=== PATIENT | female | born 1950 | race Caucasian/White ===

== ENCOUNTER 2016-04-27 04:53 | Inpatient (IN) | payer MEDICARE, BC ==
[2016-04-27] MEDS ORDERED: METHYLPREDNISOLONE INJ 125 MG/2 ML SDV IV ONE (05:16)
[2016-04-27] MEDS ORDERED: IPRATROPIUM/ALBUTEROL 0.5-2.5 MG/3 ML AMPUL NEB ONE (05:16)
--- NOTE | 2016-04-27 05:20 | ER Document Report ---
Doctor's Note Notes: 04/27/16 05:18 Performed a quick triage evaluation the patient. She is a pleasant 66-year-old female presents with complaint of difficulty breathing. She says been worsening over last week but became much worse tonight. She's had a lot of cough. No fevers. She has a history of COPD and asthma. She quit smoking 2 weeks ago. No vomiting. She's been on BiPAP in the past. She's never needed to be intubated. No other complains this time. She has been using her albuterol inhaler at home. On exam patient has tight wheezy lung wylie. She does have some accessory muscle use. She is a little tachypneic. Her O2 saturation is 93% on 2 L. I will start her on DuoNeb treatments. I have ordered Solu-Medrol. Avoid magnesium. We have ordered a VBG.
[2016-04-27 05:29] LABS: VENOUS BLOOD BASE EXCESS 6.6 mmol/L; VENOUS BLOOD PCO2 54.7 mmHg (35-63); VENOUS BLOOD PH 7.4 (7.30-7.42)
[2016-04-27] MEDS: MAGNESIUM SULFATE/D5W 100 ML IV SCH ×2 (05:31→06:40)
[2016-04-27 05:36] LABS: ANION GAP 10 (5-19); BLOOD UREA NITROGEN 15 mg/dL (7-20); CALCIUM 8.9 mg/dL (8.4-10.2); CARBON DIOXIDE 30 mmol/L (22-30); CHLORIDE 102 mmol/L (98-107); CREATININE RESULT 0.54 mg/dL (0.52-1.25); GLUCOSE 125 mg/dL (75-110); POTASSIUM 4.1 mmol/L (3.6-5.0); SODIUM 141.8 mmol/L (137-145)
[2016-04-27 05:57] LABS: HEMATOCRIT 38.3 % (36.0-47.0); HEMOGLOBIN 12.2 g/dL (12.0-15.5); HGB HCT DIFFERENCE -1.7; MEAN CORPUSCULAR HEMOGLOBIN 28.1 pg (27.0-33.4); MEAN CORPUSCULAR HGB CONC 31.8 g/dL (32.0-36.0); MEAN CORPUSCULAR VOLUME 88 fl (80-97); RED BLOOD COUNT 4.33 10^6/uL (3.72-5.28); RED CELL DISTRIBUTION WIDTH 15.9 % (11.5-14.0); WHITE BLOOD COUNT 22.2 10^3/uL (4.0-10.5)
--- NOTE | 2016-04-27 06:08 | ER Document Report ---
ED Respiratory Problem - General Chief Complaint: Breathing Difficulty Stated Complaint: SHORTNESS OF BREATH Mode of Arrival: Ambulatory Information source: Patient Notes: 66-year-old female presents to the emergency department complaining of progressively worsening cough and shortness of breath over approximately the last 2 weeks. Patient reports history of COPD and states cough has become increasingly productive with green sputum. Reports associated chills with unmeasured temperature at home. States has been using home albuterol inhaler with minimal relief. Denies chest pain or hemoptysis. TRAVEL OUTSIDE OF THE [place] IN LAST 30 DAYS: No - HPI Patient complains to provider of: COPD, Cough, Short of breath Duration: Worse/persistent Initiating Event: URI Severity: Moderate Context: Hx COPD Short of Breath: Moderate Chest pain/discomfort: Tightness Sputum amount: Moderate Sputum color: Green Sputum consistency: Thick Similar symptoms previously: Yes Recently seen / treated by doctor: No - Related Data Allergies/Adverse Reactions: hydromorphone HCl [From Dilaudid] Allergy (Intermediate, Verified 04/27/16 05:05 ) Past Medical History - General Information source: Patient - Social History Smoking Status: Smoker,Current Status Unk Chew tobacco use (# tins/day): No Frequency of alcohol use: None Drug Abuse: None Lives with: Family Family History: Reviewed & Not Pertinent Patient has suicidal ideation: No Patient has homicidal ideation: No - Past Medical History Cardiac Medical History: Reports: Hx Atrial Fibrillation, Hx Hypertension, Hx Pulmonary Embolism - 30yrs ago Denies: Hx Congestive Heart Failure, Hx Coronary Artery Disease, Hx Heart Attack, Hx Hypercholesterolemia, Hx Peripheral Vascular Disease, Hx Heart Murmur Pulmonary Medical History: Reports: Hx Asthma, Hx Bronchitis, Hx COPD, Hx Pneumonia Denies: Hx Respiratory Failure, Hx Sleep Apnea Endocrine Medical History: Reports: Hx Hypothyroidism. Denies: Hx Graves' Disease, Hx Hyperthyroidism Renal/ Medical History: Denies: Hx End Stage Renal Disease, Hx Kidney Stones, Hx Peritoneal Dialysis Malignancy Medical History: Denies: Hx Lung Cancer GI Medical History: Reports: Hx Gastroesophageal Reflux Disease Musculoskeltal Medical History: Reports Hx Arthritis, Denies Hx Fibromyalgia, Denies Hx Muscular Dystrophy Psychiatric Medical History: Reports: Hx Depression Denies: Hx Bipolar Disorder, Hx Post Traumatic Stress Disorder, Hx Schizophrenia Traumatic Medical History: Denies: Hx Fractures Past Surgical History: Reports: Hx Hysterectomy, Hx Orthopedic Surgery - CARPAL TUNNEL RELEASE, GANGLION CYST REMOVAL, TRIGGER FINGER RELEASE, Hx Tubal Ligation , Hx Urinary Tract Surgery. Denies: Hx Appendectomy, Hx Bowel Surgery, Hx Section, Hx Cholecystectomy, Hx Coronary Artery Bypass Graft, Hx Gastric Bypass Surgery, Hx Herniorrhaphy, Hx Mastectomy, Hx Pacemaker, Hx Tonsillectomy - Immunizations Hx Diphtheria, Pertussis, Tetanus Vaccination: Yes Hx Pneumococcal Vaccination: 02/22/10 Review of Systems - Review of Systems Constitutional: See HPI EENT: No symptoms reported Cardiovascular: No symptoms reported Respiratory: See HPI Gastrointestinal: No symptoms reported Genitourinary: No symptoms reported Female Genitourinary: No symptoms reported Musculoskeletal: No symptoms reported Skin: No symptoms reported Hematologic/Lymphatic: No symptoms reported Neurological/Psychological: No symptoms reported -: Yes All other systems reviewed and negative Physical Exam - Vital signs Vitals: Resp 26 H 04/27/16 05:01 - General General appearance: Alert In distress: Moderate - HEENT Head: Normocephalic, Atraumatic Eyes: Normal Pupils: PERRL - Respiratory Respiratory status: Respiratory distress, Labored, Tachypnea Chest status: Nontender Breath sounds: Productive cough, Rhonchi - Bilateral, Wheezing - Bilateral expiratory Chest palpation: Normal - Cardiovascular Rhythm: Regular Heart sounds: Normal auscultation Murmur: No Pulses: Normal: Radial Normal capillary refill: Yes - Abdominal Inspection: Normal Distension: No distension Bowel sounds: Normal Tenderness: Nontender Organomegaly: No organomegaly - Extremities General upper extremity: Normal inspection, Nontender, Normal color, Normal ROM , Normal temperature General lower extremity: Normal inspection, Nontender, Normal color, Normal ROM , Normal temperature, Normal weight bearing - Neurological Neuro grossly intact: Yes Cognition: Normal Orientation: AAOx4 [place] Coma Scale Eye Opening: Spontaneous [place] Coma Scale Verbal: Oriented [place] Coma Scale Motor: Obeys Commands [place] Coma Scale Total: 15 Speech: Normal Motor strength normal: LUE, RUE, LLE, RLE Sensory: Normal Course - Re-evaluation Re-evalutation: 04/27/16 07:34 Patient hemodynamically stable, remains on BiPAP but respiratory status has significantly improved after treatment in the ED with IV Solu-Medrol, magnesium , and DuoNebs. Chest x-ray shows hyperinflation and pneumonia. Patient was given dose of Rocephin and saline bolus. Patient presentation and findings were discussed with hospitalist Dr. Colvin who agrees to assume care, evaluate patient in the emergency department, and admit to IMCU. Findings and plan discussed with patient who verbalized understanding and agrees with plan. ED physician Dr. Perez consulted during evaluation and treatment per [facility] guidelines. - Vital Signs Vital signs: Temp Pulse Resp BP Pulse Ox 97.9 F 112 H 19 103/58 L 97 04/27/16 05:02 04/27/16 05:02 04/27/16 07:01 04/27/16 07:01 04/27/16 07:01 - Laboratory Result Diagrams: 04/27/16 05:08 04/27/16 05:08 Laboratory results interpreted by me: 04/27/16 04/27/16 04/27/16 05:08 05:08 05:08 WBC 22.2 H MCHC 31.8 L RDW 15.9 H Abs Neuts (Manual) 16.0 H Abs Monocytes (Manual) 2.7 H PT APTT VBG HCO3 33.0 H Glucose 125 H 04/27/16 05:08 WBC MCHC RDW Abs Neuts (Manual) Abs Monocytes (Manual) PT 24.8 H APTT 49.4 H VBG HCO3 Glucose - Diagnostic Test Radiology reviewed: Image reviewed, Reports reviewed - EKG Interpretation by Me EKG shows normal: Sinus rhythm Rate: Tachycardia When compared to previous EKG there are: No significant change Critical Care Note - Critical Care Note Total time excluding time spent on procedures (mins): 35 - multiple re- evaluations, bi-pap Discharge - Discharge Clinical Impression: COPD exacerbation Condition: Stable Disposition: ADMITTED INPATIENT Admitting Provider: Hospitalist Antione Colvin Unit Admitted: [facility] Referrals: AGUSTO AGRAWAL DO [Primary Care Provider] - Follow up as needed
[2016-04-27] MEDS ORDERED: CEFTRIAXONE 1 GM/D5W RTU 50 ML IV ONE (06:09)
[2016-04-27 06:34] LABS: BASOPHILS % (MANUAL) 0 % (0-2); EOSINOPHILS % (MANUAL) 0 % (0-6); LYMPHOCYTES % (MANUAL) 15 % (13-45); TOTAL CELLS COUNTED 100
[2016-04-27 06:37] LABS: PROTHROMBIN TIME 24.8 SEC (11.4-15.4)
[2016-04-27 06:38] LABS: PARTIAL THROMBOPLASTIN TIME 49.4 SEC (23.5-35.8)
[2016-04-27 06:39] LABS: OVALOCYTES 1+; POIKILOCYTOSIS 1+; POLYCHROMASIA SLIGHT
[2016-04-27] MEDS ORDERED: NORMAL SALINE 1000 ML 1,000 ML IV ONE (06:56)
--- NOTE | 2016-04-27 08:38 | EKG REPORT ---
SEVERITY:- ABNORMAL ECG - SINUS TACHYCARDIA SUPRAVENTRICULAR BIGEMINY CONSIDER ANTEROSEPTAL INFARCT : Confirmed by: Shanna Grace 27-Apr-2016 08:36:58
[2016-04-27 09:50] LABS: APPEARANCE,URINE CLEAR; BILIRUBIN,URINE NEGATIVE (NEGATIVE); GLUCOSE, URINE NEGATIVE (NEGATIVE); KETONES,URINE NEGATIVE (NEGATIVE); LEUKOCYTE ESTERASE,URINE NEGATIVE (NEGATIVE); NITRITE,URINE NEGATIVE (NEGATIVE); PROTEIN,URINE NEGATIVE (NEGATIVE); UROBILINOGEN,URINE NEGATIVE mg/dL (<2.0)
[2016-04-27] MEDS ORDERED: NORMAL SALINE 1000 ML 1,000 ML IV PRN (10:06)
[2016-04-27] MEDS: LEVOFLOXACIN 750 MG/D5W RTU 750 MG/150 ML RTUPB IV SCH (11:59)
[2016-04-27] MEDS ORDERED: DILTIAZEM HCL 180 MG CAPSULE.CR PO ONE (12:00)
[2016-04-27] MEDS: NICOTINE 14 MG/24 HR PATCH.TD24 TD SCH (13:22)
[2016-04-27] MEDS: METHYLPREDNISOLONE INJ 125 MG/2 ML SDV IV SCH ×2 (13:23→23:16)
--- NOTE | 2016-04-27 14:19 | PDOC H&P ---
History of Present Illness Admission Date/PCP: 04/27/16 10:06 AGUSTO AGRAWAL DO Patient complains of: SOB History of Present Illness: LEVI GIBBONS is a 66 year old female presents to the emergency department complaining of progressively worsening cough and shortness of breath over approximately the last 2 weeks. Patient reports history of COPD and states cough has become increasingly productive with green sputum. Reports associated chills with unmeasured temperature at home. States has been using home albuterol inhaler with minimal relief. Denies chest pain or hemoptysis. In the ED patient was diagnosed of COPD exacerbation and pneumonia She was quite dyspneic and was placed on BiPAP support She was subsequently admitted under hospitalist service to an IMCU unit Past Medical History Cardiac Medical History: Reports: Atrial Fibrillation, Hypertension, Pulmonary Embolism - 30yrs ago Denies: Congestive Heart Failure, Coronary Artery Disease, Myocardial Infarction, Hyperlipidema, Peripheral Vascular Disease, Heart Murmur Pulmonary Medical History: Reports: Asthma, Bronchitis, Chronic Obstructive Pulmonary Disease (COPD), Pneumonia, Tuberculosis Denies: Respiratory Failure, Sleep Apnea Endocrine Medical History: Reports: Hypothyroidism Denies: Hyperthyroidism Renal/ Medical History: Denies: End Stage Renal Disease Malignancy Medical History: Denies: Lung Cancer GI Medical History: Reports: Gastroesophageal Reflux Disease Musculoskeltal Medical History: Reports: Arthritis Denies: Fibromyalgia Psychiatric Medical History: Reports: Depression Denies: Bipolar Disorder, Post Traumatic Stress Disorder Past Surgical History Past Surgical History: Reports: Hysterectomy, Orthopedic Surgery - CARPAL TUNNEL RELEASE, GANGLION CYST REMOVAL, TRIGGER FINGER RELEASE, Tubal Ligation Denies: Amputation, Appendectomy, Section, Cholecystectomy, Coronary Artery Bypass Graft, Gastric Bypass Surgery, Herniorrhaphy, Mastectomy , Pacemaker, Tonsillectomy Social History Lives with: Family Smoking Status: Current Every Day Smoker Cigarettes Packs Per Day: 30 Frequency of Alcohol Use: Rare Hx Recreational Drug Use: No Hx Prescription Drug Abuse: No - Advance Directive Resuscitation Status: Full Code Surrogate healthcare decision maker:: Her daughter. Sylvia Family History Parental Family History Reviewed: Yes - mother had hypertension cancer diabetes Children Family History Reviewed: Yes Sibling(s) Family History Reviewed.: Yes - Sister COPD Brother and stage kidney disease Medication/Allergy Home Medications: Albuterol Sulfate [Albuterol Sulfate 2.5mg/3 mL] 1 vial NEB Q4 04/27/16 Albuterol Sulfate [Ventolin Hfa] 1 puff IH Q4 04/27/16 Benazepril HCl [Lotensin 20 mg Tablet] 20 mg PO DAILY 04/27/16 Budesonide/Formoterol Fumarate [Symbicort HFA 80-4.5 mcg Inhaler 6.9 gm] 2 puff IH BID 04/27/16 Buspirone HCl [Buspar 5 mg Tablet] 5 mg PO BID 04/27/16 Citalopram Hydrobromide [Celexa 20 mg Tablet] 20 mg PO DAILY 04/27/16 Citalopram Hydrobromide [Celexa 40 mg Tablet] 40 mg PO DAILY 04/27/16 Diltiazem HCl [Diltiazem ER] 180 mg PO BID 04/27/16 Levothyroxine Sodium [Synthroid 0.112 mg Tablet] 1 tab PO DAILY 04/27/16 Montelukast Sodium [Singulair 10 mg Tablet] 10 mg PO DAILY 04/27/16 Rivaroxaban [Xarelto] 20 mg PO WSUPPER 04/27/16 Ropinirole HCl 1 mg PO QHS 04/27/[address] [place] [Spiriva Handihaler 18 mcg/dose (30 Dose)] 1 cap IH DAILY 08/08 Allergies/Adverse Reactions: hydromorphone HCl [From Dilaudid] Allergy (Intermediate, Verified 04/27/16 05:05 ) Review of Systems Constitutional: ABSENT: anorexia, fever(s), headache(s) Eyes: ABSENT: visual disturbances Ears: ABSENT: hearing changes Cardiovascular: ABSENT: chest pain, dyspnea on exertion, edema, orthropnea, palpitations Respiratory: PRESENT: as per HPI, cough, dyspnea, sputum - Purulent. ABSENT: hemoptysis Gastrointestinal: ABSENT: abdominal pain, constipation, diarrhea, hematemesis, hematochezia, nausea, vomiting Integumentary: ABSENT: rash, wounds Neurological: ABSENT: abnormal gait, abnormal speech, confusion, dizziness, focal weakness, syncope Psychiatric: ABSENT: anxiety, depression, homidical ideation, suicidal ideation Endocrine: ABSENT: cold intolerance, heat intolerance, polydipsia, polyuria Hematologic/Lymphatic: ABSENT: easy bleeding, easy bruising Physical Exam Vital Signs: Temp Pulse Resp BP Pulse Ox 98.7 F 88 21 H 126/68 H 98 04/27/16 12:00 04/27/16 12:00 04/27/16 12:00 04/27/16 12:00 04/27/16 12:00 Intake & Output 04/26/16 04/27/16 04/28/16 00:59 00:59 00:59 Intake Total 240 Output Total 0 Balance 240 Weight 88.1 kg General appearance: PRESENT: mild distress Head exam: PRESENT: atraumatic, normocephalic Eye exam: PRESENT: conjunctiva pink, EOMI, PERRLA. ABSENT: scleral icterus Ear exam: PRESENT: normal external ear exam Mouth exam: PRESENT: moist, tongue midline Neck exam: ABSENT: carotid bruit, JVD, lymphadenopathy, thyromegaly Respiratory exam: PRESENT: decreased breath sounds, rhonchi. ABSENT: accessory muscle use Cardiovascular exam: PRESENT: irregular rhythm, tachycardia. ABSENT: diastolic murmur, rubs, systolic murmur Pulses: PRESENT: normal dorsalis pedis pul GI/Abdominal exam: PRESENT: normal bowel sounds, soft. ABSENT: distended, guarding, mass, organolmegaly, rebound, tenderness Rectal exam: PRESENT: deferred Musculoskeletal exam: PRESENT: ambulatory Neurological exam: PRESENT: alert, awake, oriented to person, oriented to place , oriented to time, oriented to situation, CN II-XII grossly intact. ABSENT: motor sensory deficit Psychiatric exam: PRESENT: appropriate affect, normal mood. ABSENT: homicidal ideation, suicidal ideation Skin exam: PRESENT: dry, intact, warm. ABSENT: cyanosis, rash Results Laboratory Results: Labs- All tests 24 hr 04/27/16 04/27/16 04/27/16 05:08 05:08 05:08 WBC 22.2 H RBC 4.33 Hgb 12.2 Hct 38.3 MCV 88 MCH 28.1 MCHC 31.8 L RDW 15.9 H Plt Count 374 Total Counted 100 Seg Neutrophils % Not Reportable Seg Neuts % (Manual) 72 Lymphocytes % Not Reportable Lymphocytes % (Manual) 15 Atypical Lymphs % 1 Monocytes % Not Reportable Monocytes % (Manual) 12 Eosinophils % Not Reportable Eosinophils % (Manual) 0 Basophils % Not Reportable Basophils % (Manual) 0 Absolute Neutrophils Not Reportable Abs Neuts (Manual) 16.0 H Absolute Lymphocytes Not Reportable Abs Lymphs (Manual) 3.6 Absolute Monocytes Not Reportable Abs Monocytes (Manual) 2.7 H Absolute Eosinophils Not Reportable Absolute Eos (Manual) 0.0 Absolute Basophils Not Reportable Abs Basophils (Manual) 0.0 Platelet Comment ADEQUATE Polychromasia SLIGHT Poikilocytosis 1+ Ovalocytes 1+ PT INR APTT VBG pH 7.40 VBG pCO2 54.7 VBG HCO3 33.0 H VBG Base Excess 6.6 Sodium 141.8 Potassium 4.1 Chloride 102 Carbon Dioxide 30 Anion Gap 10 BUN 15 Creatinine 0.54 Est GFR ( Amer) > 60 Est GFR (Non-Af Amer) > 60 Glucose 125 H Lactic Acid Calcium 8.9 NT-Pro-B Natriuret Pep Urine Color Urine Appearance Urine pH Ur Specific [place] Urine Protein Urine Glucose (UA) Urine Ketones Urine Blood Urine Nitrite Urine Bilirubin Urine Urobilinogen Ur Leukocyte Esterase Urine WBC (Auto) Urine RBC (Auto) Squamous Epi Cells Auto Urine Mucus (Auto) Urine Ascorbic Acid 04/27/16 04/27/16 04/27/16 05:08 05:08 05:08 WBC RBC Hgb Hct MCV MCH MCHC RDW Plt Count Total Counted Seg Neutrophils % Seg Neuts % (Manual) Lymphocytes % Lymphocytes % (Manual) Atypical Lymphs % Monocytes % Monocytes % (Manual) Eosinophils % Eosinophils % (Manual) Basophils % Basophils % (Manual) Absolute Neutrophils Abs Neuts (Manual) Absolute Lymphocytes Abs Lymphs (Manual) Absolute Monocytes Abs Monocytes (Manual) Absolute Eosinophils Absolute Eos (Manual) Absolute Basophils Abs Basophils (Manual) Platelet Comment Polychromasia Poikilocytosis Ovalocytes PT 24.8 H INR 2.14 APTT 49.4 H VBG pH VBG pCO2 VBG HCO3 VBG Base Excess Sodium Potassium Chloride Carbon Dioxide Anion Gap BUN Creatinine Est GFR ( Amer) Est GFR (Non-Af Amer) Glucose Lactic Acid 2.0 Calcium NT-Pro-B Natriuret Pep 284 Urine Color Urine Appearance Urine pH Ur Specific [place] Urine Protein Urine Glucose (UA) Urine Ketones Urine Blood Urine Nitrite Urine Bilirubin Urine Urobilinogen Ur Leukocyte Esterase Urine WBC (Auto) Urine RBC (Auto) Squamous Epi Cells Auto Urine Mucus (Auto) Urine Ascorbic Acid 04/27/16 09:20 WBC RBC Hgb Hct MCV MCH MCHC RDW Plt Count Total Counted Seg Neutrophils % Seg Neuts % (Manual) Lymphocytes % Lymphocytes % (Manual) Atypical Lymphs % Monocytes % Monocytes % (Manual) Eosinophils % Eosinophils % (Manual) Basophils % Basophils % (Manual) Absolute Neutrophils Abs Neuts (Manual) Absolute Lymphocytes Abs Lymphs (Manual) Absolute Monocytes Abs Monocytes (Manual) Absolute Eosinophils Absolute Eos (Manual) Absolute Basophils Abs Basophils (Manual) Platelet Comment Polychromasia Poikilocytosis Ovalocytes PT INR APTT VBG pH VBG pCO2 VBG HCO3 VBG Base Excess Sodium Potassium Chloride Carbon Dioxide Anion Gap BUN Creatinine Est GFR ( Amer) Est GFR (Non-Af Amer) Glucose Lactic Acid Calcium NT-Pro-B Natriuret Pep Urine Color YELLOW Urine Appearance CLEAR Urine pH 5.0 Ur Specific [place] 1.010 Urine Protein NEGATIVE Urine Glucose (UA) NEGATIVE Urine Ketones NEGATIVE Urine Blood NEGATIVE Urine Nitrite NEGATIVE Urine Bilirubin NEGATIVE Urine Urobilinogen NEGATIVE Ur Leukocyte Esterase NEGATIVE Urine WBC (Auto) 1 Urine RBC (Auto) 0 Squamous Epi Cells Auto <1 Urine Mucus (Auto) RARE Urine Ascorbic Acid NEGATIVE EKG Comments: SINUS TACHYCARDIA [SVBIG] . SUPRAVENTRICULAR BIGEMINY [AMI8] . CONSIDER ANTEROSEPTAL INFARCT Impressions: Chest X-Ray 04/27/16 05:17 IMPRESSION: Upper lobes are hyperinflated and hyperlucent from obstructive disease. There is interstitial infiltrate in the right and left lower lung, which may reflect a mixture of alveolar and interstitial edema superimposed on obstructive disease. Atypical pneumonia could not be excluded. Assessment & Plan - Diagnosis (1) Pneumonia Qualifiers: Pneumonia type: due to unspecified organism Laterality: unspecified laterality Lung location: unspecified part of lung Qualified Code(s) : J18.9 - Pneumonia, unspecified organism Is this a current diagnosis for this admission?: YesPlan: Treat as community-acquired pneumonia Patient will be treated with Levaquin and ceftriaxone to broaden the spectrum as she is a chronic smoker and may have Gram-negative pneumonia Noted that chest x-ray was described as increased interstitial infiltrate (2) Respiratory failure Qualifiers: Chronicity: acute on chronic Is this a current diagnosis for this admission?: YesPlan: We will give the patient supplemental O2. And use BiPAP when necessary (3) COPD exacerbation Is this a current diagnosis for this admission?: YesPlan: Treat with nebs steroids (4) Full code status Is this a current diagnosis for this admission?: Yes - Time Time Spent: 50 to 70 Minutes
[2016-04-27] MEDS ORDERED: (PENDING PHARMACY ID) (Diltiazem Hcl [Diltiazem Er] 180 MG) PO SCH (18:00)
[2016-04-27] MEDS ORDERED: (PENDING PHARMACY ID) (Buspirone Hcl [Buspar 5 Mg Tablet] 5 MG) PO SCH (18:00)
[2016-04-27] MEDS: CEFEPIME 1 GM/D5W RTU 1 GM/50 ML RTUPB IV SCH (18:23)
[2016-04-27] MEDS: BUSPIRONE HCL 10 MG TABLET PO SCH (18:24)
[2016-04-27] MEDS: BUDESONIDE/FORMOTEROL 80-4.5 MCG 60 PUFF/6.9 GM MDI IH SCH (18:24)
[2016-04-27] MEDS: RIVAROXABAN 10 MG TABLET PO SCH (18:24)
[2016-04-27] MEDS ORDERED: NYSTATIN 500000 UNIT/5 ML UDCUP PO ONE (19:30)
[2016-04-27] MEDS: IPRATROPIUM/ALBUTEROL 0.5-2.5 MG/3 ML AMPUL NEB PRN (22:44)
[2016-04-27] MEDS: NYSTATIN 500000 UNIT/5 ML UDCUP PO SCH (23:17)
[2016-04-27] MEDS: ROPINIROLE HCL 1 MG TABLET PO SCH (23:18)
[2016-04-27] MEDS: DILTIAZEM HCL 180 MG CAPSULE.CR PO SCH (23:19)
[2016-04-27] MEDS: FAMOTIDINE INJ/PF 20 MG/2 ML SDV IV SCH (23:19)
[2016-04-28] MEDS: CEFEPIME 1 GM/D5W RTU 1 GM/50 ML RTUPB IV SCH ×2 (06:09→17:55)
[2016-04-28] MEDS: METHYLPREDNISOLONE INJ 125 MG/2 ML SDV IV SCH ×3 (06:09→22:28)
[2016-04-28] MEDS: NYSTATIN 500000 UNIT/5 ML UDCUP PO SCH ×3 (06:09→17:55)
[2016-04-28] MEDS: IPRATROPIUM/ALBUTEROL 0.5-2.5 MG/3 ML AMPUL NEB PRN ×2 (06:24→20:06)
[2016-04-28 06:47] LABS: HEMATOCRIT 35.5 % (36.0-47.0); HEMOGLOBIN 11.5 g/dL (12.0-15.5); MEAN CORPUSCULAR HEMOGLOBIN 28.6 pg (27.0-33.4); MEAN CORPUSCULAR HGB CONC 32.3 g/dL (32.0-36.0); MEAN CORPUSCULAR VOLUME 89 fl (80-97); RED BLOOD COUNT 4.01 10^6/uL (3.72-5.28); RED CELL DISTRIBUTION WIDTH 15.9 % (11.5-14.0); WHITE BLOOD COUNT 23.3 10^3/uL (4.0-10.5)
[2016-04-28 07:12] LABS: ALANINE AMINOTRANSFERASE 28 U/L (9-52); ALBUMIN 3.2 g/dL (3.5-5.0); ALKALINE PHOSPHATASE 113 U/L (38-126); ANION GAP 9 (5-19); ASPARTATE AMINO TRANSFERASE 18 U/L (14-36); BILIRUBIN,TOTAL 0.5 mg/dL (0.2-1.3); BLOOD UREA NITROGEN 13 mg/dL (7-20); CALCIUM 8.9 mg/dL (8.4-10.2); CARBON DIOXIDE 29 mmol/L (22-30); CHLORIDE 103 mmol/L (98-107); CREATININE RESULT 0.48 mg/dL (0.52-1.25); GLUCOSE 167 mg/dL (75-110); POTASSIUM 4.4 mmol/L (3.6-5.0); SODIUM 141.1 mmol/L (137-145); TOTAL PROTEIN 6.3 g/dL (6.3-8.2)
[2016-04-28 07:45] LABS: BASOPHILS % (MANUAL) 0 % (0-2); EOSINOPHILS % (MANUAL) 0 % (0-6); HYPOCHROMASIA SLIGHT; LYMPHOCYTES % (MANUAL) 8 % (13-45); POLYCHROMASIA SLIGHT; TOTAL CELLS COUNTED 100
[2016-04-28] MEDS: ENOXAPARIN SODIUM INJ 40 MG/0.4 ML DISP.SYRIN SUBCUT SCH (08:13)
[2016-04-28] MEDS: LEVOTHYROXINE SODIUM 0.112 MG TABLET PO SCH (08:14)
[2016-04-28] MEDS: DILTIAZEM HCL 180 MG CAPSULE.CR PO SCH ×2 (09:56→22:27)
[2016-04-28] MEDS: BUSPIRONE HCL 10 MG TABLET PO SCH ×2 (09:56→17:55)
[2016-04-28] MEDS: BENAZEPRIL HCL 20 MG TABLET PO SCH (09:57)
[2016-04-28] MEDS: BUDESONIDE/FORMOTEROL 80-4.5 MCG 60 PUFF/6.9 GM MDI IH SCH ×2 (09:58→17:55)
[2016-04-28] MEDS: CITALOPRAM HYDROBROMIDE 20 MG TABLET PO SCH (09:58)
[2016-04-28] MEDS: FAMOTIDINE INJ/PF 20 MG/2 ML SDV IV SCH ×2 (09:59→22:27)
[2016-04-28] MEDS: TIOTROPIUM BROMIDE DPI 5 CAP/KIT (18 MCG/CAP) IH SCH (09:59)
[2016-04-28] MEDS ORDERED: (PENDING PHARMACY ID) (Citalopram Hydrobromide [Celexa 40 Mg Tablet] 40 MG) PO SCH (10:00)
[2016-04-28] MEDS ORDERED: PREDNISONE 20 MG TABLET PO SCH (10:00)
--- NOTE | 2016-04-28 10:39 | PDOC PROGRESS REPORT ---
Subjective Progress Note for:: 04/28/16 Subjective:: Reason for visit: Follow-up pneumonia, acute on chronic hypoxic respiratory failure Hospital course: Per H&P "LEVI GIBBONS is a 66 year old female presents to the emergency department complaining of progressively worsening cough and shortness of breath over approximately the last 2 weeks. Patient reports history of COPD and states cough has become increasingly productive with green sputum. Reports associated chills with unmeasured temperature at home. States has been using home albuterol inhaler with minimal relief. Denies chest pain or hemoptysis. In the ED patient was diagnosed of COPD exacerbation and pneumonia She was quite dyspneic and was placed on BiPAP support She was subsequently admitted under hospitalist service to an IMCU unit" She was admitted to the hospital and started on supplemental O2, nebulizer therapy, systemic IV steroids, and broad-spectrum antibiotics with cefepime and Levaquin. She does feel some better since her admission but is a long way from back to normal. Subjective: She complains of some posterior back pain with deep inspiration, worsened by the bed and certain positions; she continues to complain of dyspnea with minimal exertion and wheezing. She denies fever, chills, cardiac type chest pain, headache, dizziness, numbness or tingling, abdominal pain, nausea, diarrhea. ROS: per HPI plus a total of 10 systems reviewed, pertinent positives and negatives noted above, remaining systems negative. Physical Exam Vital Signs: Temp Pulse Resp BP Pulse Ox 98.3 F 68 22 H 121/64 95 04/28/16 07:33 04/28/16 07:33 04/28/16 07:33 04/28/16 07:33 04/28/16 07:33 Intake & Output 04/27/16 04/28/16 04/29/16 06:59 06:59 06:59 Intake Total 2097 Output Total 0 Balance 2097 Weight 89.3 kg EXAM GENERAL: NAD; well developed, well nourished; mild obese; alert and oriented to person, place, time, situation HEENT: normocephalic, atraumatic; no conjunctival injection, no scleral icterus ; oral mucosa moist; RESPIRATORY: no accessory muscle use, mild increased WOB with minimal exertion , good air entry bilaterally; bilateral rhonchi and diffuse inspiratory crackles CARDIO: no JVD; no systolic murmur; no tachycardia GI: soft; nondistended; normal bowel sounds; no tympany: no rebound, rigidity, guarding; nontender VASCULAR: no abdominal bruit; no pallor; 2+ radial, DP pulse; normal capillary refill EXTREMITIES: no calf tender; no palpable cords in calf; no clubbing, cyanosis , pedal edema PSYCH: normal affect, normal mood SKIN: warm; moist; no petechiae; no telengectasias; no jaundice; no rash Results Laboratory Results: 04/28/16 05:58 04/28/16 05:58 04/28/16 04/28/16 04/28/16 05:58 05:58 05:58 WBC 23.3 H RBC 4.01 Hgb 11.5 L Hct 35.5 L MCV 89 MCH 28.6 MCHC 32.3 RDW 15.9 H Plt Count 329 Seg Neutrophils % Not Reportable Lymphocytes % Not Reportable Monocytes % Not Reportable Eosinophils % Not Reportable Basophils % Not Reportable Absolute Neutrophils Not Reportable Absolute Lymphocytes Not Reportable Absolute Monocytes Not Reportable Absolute Eosinophils Not Reportable Absolute Basophils Not Reportable Sodium 141.1 Potassium 4.4 Chloride 103 Carbon Dioxide 29 Anion Gap 9 BUN 13 Creatinine 0.48 L Est GFR ( Amer) > 60 Est GFR (Non-Af Amer) > 60 Glucose 167 H Calcium 8.9 Total Bilirubin 0.5 AST 18 ALT 28 Alkaline Phosphatase 113 Total Protein 6.3 Albumin 3.2 L TSH 0.73 Labs reviewed, persistent leukocytosis otherwise reassuring or unremarkable Impressions: Chest X-Ray 04/27/16 05:17 IMPRESSION: Upper lobes are hyperinflated and hyperlucent from obstructive disease. There is interstitial infiltrate in the right and left lower lung, which may reflect a mixture of alveolar and interstitial edema superimposed on obstructive disease. Atypical pneumonia could not be excluded. Status: Imported from PACS - Reports reviewed Assessment & Plan - Diagnosis (1) Acute respiratory failure with hypoxia Is this a current diagnosis for this admission?: YesPlan: Continue supplemental O2, incentive spirometer, nebulizers. Wean off O2 as tolerated, patient does not use at home. (2) COPD exacerbation Is this a current diagnosis for this admission?: YesPlan: Likely bacterial bronchitis and with her fixed lung disease she is at risk for gram-negative organisms. Continue broad-spectrum antibiotics. Other treatments as noted above. (3) Pneumonia Qualifiers: Pneumonia type: due to unspecified organism Laterality: unspecified laterality Lung location: unspecified part of lung Qualified Code(s) : J18.9 - Pneumonia, unspecified organism Is this a current diagnosis for this admission?: YesPlan: Treat as noted above. (4) HTN (hypertension) Qualifiers: Hypertension type: essential hypertension Qualified Code(s): I10 - Essential (primary) hypertension Is this a current diagnosis for this admission?: YesPlan: Titrated regimen as needed. - Time Time Spent with patient: 25-34 minutes Anticipated discharge: Home Within: within 72 hours - We'll likely be a long slow recovery due to the severity of her COPD and current bronchospasm
[2016-04-28] MEDS: NICOTINE 14 MG/24 HR PATCH.TD24 TD SCH (11:18)
[2016-04-28] MEDS: LEVOFLOXACIN 750 MG/D5W RTU 750 MG/150 ML RTUPB IV SCH (11:25)
[2016-04-28] MEDS: RIVAROXABAN 10 MG TABLET PO SCH (17:54)
[2016-04-28] MEDS ORDERED: MONTELUKAST SODIUM 10 MG TABLET PO SCH (18:00)
[2016-04-28] MEDS: ROPINIROLE HCL 1 MG TABLET PO SCH (22:27)
[2016-04-29] MEDS: NYSTATIN 500000 UNIT/5 ML UDCUP PO SCH ×4 (00:34→17:43)
[2016-04-29] MEDS: IPRATROPIUM/ALBUTEROL 0.5-2.5 MG/3 ML AMPUL NEB PRN ×2 (03:08→10:35)
[2016-04-29] MEDS: METHYLPREDNISOLONE INJ 125 MG/2 ML SDV IV SCH ×3 (05:40→22:30)
[2016-04-29] MEDS: CEFEPIME 1 GM/D5W RTU 1 GM/50 ML RTUPB IV SCH ×2 (05:40→17:44)
[2016-04-29] MEDS ORDERED: GUAIFENESIN SYRP 200 MG/10 ML UDC PO PRN (06:13)
[2016-04-29] MEDS: ENOXAPARIN SODIUM INJ 40 MG/0.4 ML DISP.SYRIN SUBCUT SCH (10:06)
[2016-04-29] MEDS: BUSPIRONE HCL 10 MG TABLET PO SCH ×2 (10:07→17:44)
[2016-04-29] MEDS: BUDESONIDE/FORMOTEROL 80-4.5 MCG 60 PUFF/6.9 GM MDI IH SCH ×2 (10:07→17:44)
[2016-04-29] MEDS: DILTIAZEM HCL 180 MG CAPSULE.CR PO SCH ×2 (10:07→22:30)
[2016-04-29] MEDS: LEVOTHYROXINE SODIUM 0.112 MG TABLET PO SCH (10:07)
[2016-04-29] MEDS: CITALOPRAM HYDROBROMIDE 20 MG TABLET PO SCH ×2 (10:07→22:32)
[2016-04-29] MEDS: TIOTROPIUM BROMIDE DPI 5 CAP/KIT (18 MCG/CAP) IH SCH (10:08)
[2016-04-29] MEDS: FAMOTIDINE INJ/PF 20 MG/2 ML SDV IV SCH ×2 (10:08→22:31)
[2016-04-29] MEDS: BENAZEPRIL HCL 20 MG TABLET PO SCH (10:09)
[2016-04-29] MEDS: ACETAMINOPHEN 325 MG TABLET PO PRN ×2 (10:15→15:49)
[2016-04-29] MEDS ORDERED: HYDROCODONE BIT/HOMATROPINE 5-1.5 MG TABLET PO SCH (10:45)
[2016-04-29] MEDS: LEVOFLOXACIN 750 MG TABLET PO SCH (11:46)
[2016-04-29] MEDS: NICOTINE 14 MG/24 HR PATCH.TD24 TD SCH (11:47)
[2016-04-29] MEDS ORDERED: HYDROCODONE BIT/HOMATROPINE 5-1.5 MG TABLET PO ONE ×2 (12:00→16:00)
--- NOTE | 2016-04-29 13:29 | PDOC PROGRESS REPORT ---
Subjective Progress Note for:: 04/29/16 Subjective:: Reason for visit: Follow-up pneumonia, acute on chronic hypoxic respiratory failure Hospital course: Per H&P "LEVI GIBBONS is a 66 year old female presents to the emergency department complaining of progressively worsening cough and shortness of breath over approximately the last 2 weeks. Patient reports history of COPD and states cough has become increasingly productive with green sputum. Reports associated chills with unmeasured temperature at home. States has been using home albuterol inhaler with minimal relief. Denies chest pain or hemoptysis. In the ED patient was diagnosed of COPD exacerbation and pneumonia She was quite dyspneic and was placed on BiPAP support She was subsequently admitted under hospitalist service to an IMCU unit" She was admitted to the hospital and started on supplemental O2, nebulizer therapy, systemic high dose IV steroids, and broad-spectrum antibiotics with cefepime and Levaquin. She does feel some better since her admission but is a long way from back to normal. Subjective: She complains of persistent cough, dry hacking and waking her from sleep, leaving her breathless and wheezing; she continues to complain of dyspnea with minimal exertion and wheezing. she feels like there is something stuck in the center of her chest but cant get it cleared. She denies fever, chills, cardiac type chest pain, headache, dizziness, numbness or tingling, abdominal pain, nausea, diarrhea. ROS: per HPI plus a total of 10 systems reviewed, pertinent positives and negatives noted above, remaining systems negative. Physical Exam Vital Signs: Temp Pulse Resp BP Pulse Ox 98.2 F 70 18 118/65 94 04/29/16 11:10 04/29/16 11:10 04/29/16 11:10 04/29/16 11:10 04/29/16 11:10 Intake & Output 04/28/16 04/29/16 04/30/16 06:59 06:59 06:59 Intake Total 2097 1682 300 Output Total 0 Balance 2097 1682 300 Weight 89.3 kg 89 kg EXAM GENERAL: NAD, ill appearing; well developed, well nourished; mild obese; alert and oriented to person, place, time, situation HEENT: normocephalic, atraumatic; no conjunctival injection, no scleral icterus ; oral mucosa dry; RESPIRATORY: no accessory muscle use, mild increased WOB with minimal exertion , good air entry bilaterally; persistent bilateral rhonchi and diffuse inspiratory crackles CARDIO: no JVD; no systolic murmur; no tachycardia GI: soft; nondistended; normal bowel sounds; no tympany: no rebound, rigidity, guarding; nontender VASCULAR: no abdominal bruit; no pallor; 2+ radial, DP pulse; normal capillary refill EXTREMITIES: no calf tender; no palpable cords in calf; no clubbing, cyanosis , pedal edema PSYCH: normal affect, normal mood SKIN: warm; moist; no petechiae; no telengectasias; no jaundice; no rash Assessment & Plan - Diagnosis (1) Acute respiratory failure with hypoxia Is this a current diagnosis for this admission?: YesPlan: not much improved. Continue supplemental O2, incentive spirometer, nebulizers. Wean off O2 as tolerated, patient does not use at home. (2) COPD exacerbation Is this a current diagnosis for this admission?: YesPlan: Likely bacterial bronchitis and with her fixed lung disease she is at risk for gram-negative organisms. Continue broad-spectrum antibiotics. add cough suppressant as this seems to be worsening her bronchospasm. scheduled nebs for 24hrs and continue prn nebs. Other treatments as noted above. (3) Pneumonia Qualifiers: Pneumonia type: due to unspecified organism Laterality: unspecified laterality Lung location: unspecified part of lung Qualified Code(s) : J18.9 - Pneumonia, unspecified organism Is this a current diagnosis for this admission?: YesPlan: Treat as noted above. (4) HTN (hypertension) Qualifiers: Hypertension type: essential hypertension Qualified Code(s): I10 - Essential (primary) hypertension Is this a current diagnosis for this admission?: Yes - Time Time Spent with patient: 15-24 minutes Medications reviewed and adjusted accordingly: Yes Anticipated discharge: Home Within: within 72 hours - Plan Summary Plan Summary: not much improvement but not any worse; tweak her meds as noted above and hopefully another 24hrs of high dose steroids with abx will finally turn the tide in our favor.
[2016-04-29] MEDS: ALBUTEROL SULFATE 0.083% NEB 2.5 MG/3 ML AMPUL NEB SCH ×2 (14:11→20:12)
[2016-04-29] MEDS: RIVAROXABAN 10 MG TABLET PO SCH (17:45)
[2016-04-29] MEDS: GUAIFENESIN 600 MG TABLET.SA PO SCH (22:31)
[2016-04-29] MEDS: HYDROCODONE BIT/HOMATROPINE 5-1.5 MG TABLET PO SCH (22:31)
[2016-04-29] MEDS: ROPINIROLE HCL 1 MG TABLET PO SCH (22:31)
[2016-04-30] MEDS: NYSTATIN 500000 UNIT/5 ML UDCUP PO SCH ×5 (01:10→23:14)
[2016-04-30] MEDS: ALBUTEROL SULFATE 0.083% NEB 2.5 MG/3 ML AMPUL NEB PRN (01:56)
[2016-04-30] MEDS: CEFEPIME 1 GM/D5W RTU 1 GM/50 ML RTUPB IV SCH ×2 (05:11→18:44)
[2016-04-30] MEDS: HYDROCODONE BIT/HOMATROPINE 5-1.5 MG TABLET PO SCH ×4 (05:12→23:15)
[2016-04-30] MEDS: METHYLPREDNISOLONE INJ 125 MG/2 ML SDV IV SCH ×3 (05:12→21:49)
[2016-04-30 06:08] LABS: HEMATOCRIT 34.6 % (36.0-47.0); HEMOGLOBIN 11.1 g/dL (12.0-15.5); HGB HCT DIFFERENCE -1.3; MEAN CORPUSCULAR HEMOGLOBIN 28.1 pg (27.0-33.4); MEAN CORPUSCULAR VOLUME 88 fl (80-97); RED BLOOD COUNT 3.94 10^6/uL (3.72-5.28); RED CELL DISTRIBUTION WIDTH 15.5 % (11.5-14.0); WHITE BLOOD COUNT 25.2 10^3/uL (4.0-10.5)
[2016-04-30 06:14] LABS: ANION GAP 8 (5-19); BLOOD UREA NITROGEN 21 mg/dL (7-20); CALCIUM 8.5 mg/dL (8.4-10.2); CARBON DIOXIDE 30 mmol/L (22-30); CHLORIDE 100 mmol/L (98-107); CREATININE RESULT 0.53 mg/dL (0.52-1.25); GLUCOSE 157 mg/dL (75-110); POTASSIUM 4.2 mmol/L (3.6-5.0)
[2016-04-30 06:38] LABS: BASOPHILS % (MANUAL) 0 % (0-2); EOSINOPHILS % (MANUAL) 0 % (0-6); LYMPHOCYTES % (MANUAL) 7 % (13-45); TOTAL CELLS COUNTED 100
[2016-04-30 06:40] LABS: ANISOCYTOSIS SLIGHT; OVALOCYTES SLIGHT; POIKILOCYTOSIS SLIGHT; TEAR DROP CELLS SLIGHT; TOXIC GRANULATION 1+; TOXIC VACUOLATION PRESENT
[2016-04-30] MEDS: ACETAMINOPHEN 325 MG TABLET PO PRN (06:52)
[2016-04-30] MEDS: ALBUTEROL SULFATE 0.083% NEB 2.5 MG/3 ML AMPUL NEB SCH ×3 (08:18→20:11)
[2016-04-30] MEDS: BUSPIRONE HCL 10 MG TABLET PO SCH ×2 (10:32→18:43)
[2016-04-30] MEDS: LEVOTHYROXINE SODIUM 0.112 MG TABLET PO SCH (10:32)
[2016-04-30] MEDS: CITALOPRAM HYDROBROMIDE 20 MG TABLET PO SCH ×2 (10:32→21:49)
[2016-04-30] MEDS: DILTIAZEM HCL 180 MG CAPSULE.CR PO SCH ×2 (10:32→21:49)
[2016-04-30] MEDS: GUAIFENESIN 600 MG TABLET.SA PO SCH ×2 (10:33→21:49)
[2016-04-30] MEDS: BUDESONIDE/FORMOTEROL 80-4.5 MCG 60 PUFF/6.9 GM MDI IH SCH ×2 (10:34→18:44)
[2016-04-30] MEDS: FAMOTIDINE INJ/PF 20 MG/2 ML SDV IV SCH (10:34)
[2016-04-30] MEDS: TIOTROPIUM BROMIDE DPI 5 CAP/KIT (18 MCG/CAP) IH SCH (10:35)
[2016-04-30] MEDS: ENOXAPARIN SODIUM INJ 40 MG/0.4 ML DISP.SYRIN SUBCUT SCH (10:36)
[2016-04-30] MEDS: BENAZEPRIL HCL 20 MG TABLET PO SCH (10:43)
--- NOTE | 2016-04-30 12:57 | PDOC PROGRESS REPORT ---
Subjective Progress Note for:: 04/30/16 Subjective:: Reason for visit: Follow-up pneumonia, acute on chronic hypoxic respiratory failure Hospital course: Per H&P "LEVI GIBBONS is a 66 year old female presents to the emergency department complaining of progressively worsening cough and shortness of breath over approximately the last 2 weeks. Patient reports history of COPD and states cough has become increasingly productive with green sputum. Reports associated chills with unmeasured temperature at home. States has been using home albuterol inhaler with minimal relief. Denies chest pain or hemoptysis. In the ED patient was diagnosed of COPD exacerbation and pneumonia She was quite dyspneic and was placed on BiPAP support She was subsequently admitted under hospitalist service to an IMCU unit" She was admitted to the hospital and started on supplemental O2, nebulizer therapy, systemic high dose IV steroids, and broad-spectrum antibiotics with cefepime and Levaquin. She does feel some better since her admission but is a long way from back to normal. Subjective: She states her breathing is finally a little better; she continues to complain of dyspnea with minimal exertion and wheezing. cough is improved with change in suppressant. She denies fever, chills, cardiac type chest pain, headache, dizziness, numbness or tingling, abdominal pain, nausea, diarrhea. ROS: per HPI plus a total of 10 systems reviewed, pertinent positives and negatives noted above, remaining systems negative. Physical Exam Vital Signs: Temp Pulse Resp BP Pulse Ox 97.7 F 73 20 102/63 90 L 04/30/16 11:10 04/30/16 11:10 04/30/16 11:10 04/30/16 11:10 04/30/16 11:10 Intake & Output 04/29/16 04/30/16 05/01/16 06:59 06:59 06:59 Intake Total 1682 5 Balance 1682 2094 Weight 89 kg 91.1 kg EXAM GENERAL: NAD; well developed, well nourished; mild obese; alert and oriented to person, place, time, situation HEENT: normocephalic, atraumatic; no conjunctival injection, no scleral icterus ; oral mucosa dry; RESPIRATORY: no accessory muscle use, mild increased WOB with minimal exertion , good air entry bilaterally;resolution of bilateral rhonchi, now just coarse BSs bilat CARDIO: no JVD; no systolic murmur; no tachycardia GI: soft; nondistended; normal bowel sounds; no tympany: no rebound, rigidity, guarding; nontender VASCULAR: no abdominal bruit; no pallor; 2+ radial, DP pulse; normal capillary refill EXTREMITIES: no calf tender; no palpable cords in calf; no clubbing, cyanosis , pedal edema PSYCH: normal affect, normal mood SKIN: warm; moist; no petechiae; no telengectasias; no jaundice; no rash Results Laboratory Results: 04/30/16 05:07 04/30/16 05:07 04/30/16 04/30/16 05:07 05:07 WBC 25.2 H RBC 3.94 Hgb 11.1 L Hct 34.6 L MCV 88 MCH 28.1 MCHC 32.0 RDW 15.5 H Plt Count 362 Seg Neutrophils % Not Reportable Lymphocytes % Not Reportable Monocytes % Not Reportable Eosinophils % Not Reportable Basophils % Not Reportable Absolute Neutrophils Not Reportable Absolute Lymphocytes Not Reportable Absolute Monocytes Not Reportable Absolute Eosinophils Not Reportable Absolute Basophils Not Reportable Sodium 138.0 Potassium 4.2 Chloride 100 Carbon Dioxide 30 Anion Gap 8 BUN 21 H Creatinine 0.53 Est GFR ( Amer) > 60 Est GFR (Non-Af Amer) > 60 Glucose 157 H Calcium 8.5 labs reviewed, persistent leukocytosis, had high monocytes on initial CBC raising possibility for viral infection Assessment & Plan - Diagnosis (1) Acute respiratory failure with hypoxia Is this a current diagnosis for this admission?: YesPlan: stable. Continue supplemental O2, incentive spirometer, nebulizers. Wean off O2 as tolerated, patient does not use at home. (2) COPD exacerbation Is this a current diagnosis for this admission?: YesPlan: finally some improved with resolution of bronchospasm on today's exam. Likely bacterial bronchitis and with her fixed lung disease she is at risk for gram- negative organisms. Continue broad-spectrum antibiotics. added stronger cough suppressant as cough seemed to be worsening her bronchospasm. scheduled nebs for 24hrs really seemed to help. Other treatments as noted above. (3) Pneumonia Qualifiers: Pneumonia type: due to unspecified organism Laterality: unspecified laterality Lung location: unspecified part of lung Qualified Code(s) : J18.9 - Pneumonia, unspecified organism Is this a current diagnosis for this admission?: YesPlan: Treat as noted above. (4) HTN (hypertension) Qualifiers: Hypertension type: essential hypertension Qualified Code(s): I10 - Essential (primary) hypertension Is this a current diagnosis for this admission?: Yes - Time Time Spent with patient: 15-24 minutes
[2016-04-30] MEDS: LEVOFLOXACIN 750 MG TABLET PO SCH (14:22)
[2016-04-30] MEDS: NICOTINE 14 MG/24 HR PATCH.TD24 TD SCH (14:23)
[2016-04-30] MEDS: LANSOPRAZOLE 30 MG TAB.RAP.DR PO SCH (18:43)
[2016-04-30] MEDS: RIVAROXABAN 10 MG TABLET PO SCH (18:45)
[2016-04-30] MEDS: ROPINIROLE HCL 1 MG TABLET PO SCH (21:49)
[2016-05-01] MEDS: ALBUTEROL SULFATE 0.083% NEB 2.5 MG/3 ML AMPUL NEB PRN ×3 (02:16→19:42)
[2016-05-01] MEDS: CEFEPIME 1 GM/D5W RTU 1 GM/50 ML RTUPB IV SCH (05:40)
[2016-05-01] MEDS: METHYLPREDNISOLONE INJ 125 MG/2 ML SDV IV SCH ×2 (05:41→21:15)
[2016-05-01] MEDS: HYDROCODONE BIT/HOMATROPINE 5-1.5 MG TABLET PO SCH ×3 (05:42→21:15)
[2016-05-01] MEDS: NYSTATIN 500000 UNIT/5 ML UDCUP PO SCH ×2 (05:42→11:04)
[2016-05-01] MEDS: LANSOPRAZOLE 30 MG TAB.RAP.DR PO SCH ×2 (05:42→17:53)
[2016-05-01] MEDS: ALBUTEROL SULFATE 0.083% NEB 2.5 MG/3 ML AMPUL NEB SCH (08:23)
[2016-05-01] MEDS: BUDESONIDE/FORMOTEROL 80-4.5 MCG 60 PUFF/6.9 GM MDI IH SCH ×2 (11:03→17:52)
[2016-05-01] MEDS: TIOTROPIUM BROMIDE DPI 5 CAP/KIT (18 MCG/CAP) IH SCH (11:04)
[2016-05-01] MEDS: BUSPIRONE HCL 10 MG TABLET PO SCH ×2 (11:05→17:53)
[2016-05-01] MEDS: CITALOPRAM HYDROBROMIDE 20 MG TABLET PO SCH ×2 (11:05→21:15)
[2016-05-01] MEDS: DILTIAZEM HCL 180 MG CAPSULE.CR PO SCH ×2 (11:05→21:15)
[2016-05-01] MEDS: BENAZEPRIL HCL 20 MG TABLET PO SCH (11:06)
[2016-05-01] MEDS: NICOTINE 14 MG/24 HR PATCH.TD24 TD SCH (11:06)
[2016-05-01] MEDS: GUAIFENESIN 600 MG TABLET.SA PO SCH ×2 (11:06→21:15)
[2016-05-01] MEDS: LEVOTHYROXINE SODIUM 0.112 MG TABLET PO SCH (11:06)
[2016-05-01] MEDS: LEVOFLOXACIN 750 MG TABLET PO SCH (11:06)
[2016-05-01] MEDS: ACETAMINOPHEN 325 MG TABLET PO PRN (11:11)
--- NOTE | 2016-05-01 14:48 | PDOC PROGRESS REPORT ---
Subjective Progress Note for:: 05/01/16 Subjective:: Reason for visit: Follow-up pneumonia, acute on chronic hypoxic respiratory failure Hospital course: Per H&P "LEVI GIBBONS is a 66 year old female presents to the emergency department complaining of progressively worsening cough and shortness of breath over approximately the last 2 weeks. Patient reports history of COPD and states cough has become increasingly productive with green sputum. Reports associated chills with unmeasured temperature at home. States has been using home albuterol inhaler with minimal relief. Denies chest pain or hemoptysis. In the ED patient was diagnosed of COPD exacerbation and pneumonia She was quite dyspneic and was placed on BiPAP support She was subsequently admitted under hospitalist service to an IMCU unit" She was admitted to the hospital and started on supplemental O2, nebulizer therapy, systemic high dose IV steroids, and broad-spectrum antibiotics with cefepime and Levaquin. She does feel some better since her admission but is a long way from back to normal. Subjective: once again today she has taken a turn for the worse; now c/o sores in her mouth, worsening wheezing, sharp, stabbing pain under her left shoulder blade without alleviating or exac factors and no asctd N/V, arm/jaw pain, palpitations, orthopnea/PND or SOA. ROS: per HPI plus a total of 10 systems reviewed, pertinent positives and negatives noted above, remaining systems negative. Physical Exam Vital Signs: Temp Pulse Resp BP Pulse Ox 98.3 F 68 18 99/75 L 98 05/01/16 12:44 05/01/16 12:44 05/01/16 12:44 05/01/16 12:44 05/01/16 12:44 Intake & Output 04/30/16 05/01/16 05/02/16 06:59 06:59 06:59 Intake Total 2095 1372 240 Output Total 900 500 Balance 2095 472 -260 Weight 91.1 kg 92.5 kg EXAM GENERAL: NAD; well developed, well nourished; mild obese; alert and oriented to person, place, time, situation HEENT: normocephalic, atraumatic; no conjunctival injection, no scleral icterus ; oral mucosa dry; RESPIRATORY: no accessory muscle use, mild increased WOB with minimal exertion , good air entry bilaterally;recurrent bilateral rhonchi and end exp wheezes CARDIO: no JVD; no systolic murmur; no tachycardia; no chest wall tenderness but the pain localizes to just under the left rhomboid muscle, I cannot reproduce her pain GI: soft; nondistended; normal bowel sounds; no tympany: no rebound, rigidity, guarding; nontender VASCULAR: no abdominal bruit; no pallor; 2+ radial, DP pulse; normal capillary refill EXTREMITIES: no calf tender; no palpable cords in calf; no clubbing, cyanosis , pedal edema PSYCH: normal affect, normal mood SKIN: warm; moist; no petechiae; no telengectasias; no jaundice; no rash Results Impressions: i do not see ct chest this admission Assessment & Plan - Diagnosis (1) Acute respiratory failure with hypoxia Is this a current diagnosis for this admission?: YesPlan: no change in O2 requirements but has really plateaued and will not resolve. Continue supplemental O2, incentive spirometer, nebulizers. Wean off O2 as tolerated, patient does not use at home. (2) COPD exacerbation Is this a current diagnosis for this admission?: YesPlan: possible bacterial bronchitis and with her fixed lung disease she is at risk for gram-negative organisms, but I am more and more convinced this is likely viral given all the muscle aches/pains and failure to improve in spite of continued broad-spectrum antibiotics. will d/c abx and decrease her steroid dose. otherwise continue treatment as above. (3) Pneumonia Qualifiers: Pneumonia type: due to unspecified organism Laterality: unspecified laterality Lung location: unspecified part of lung Qualified Code(s) : J18.9 - Pneumonia, unspecified organism Is this a current diagnosis for this admission?: YesPlan: I am not happy with her failure to improve and she does NOT impress me as someone who "likes" being sick and in the hospital. The onset of this pain makes me more convinced this is viral but its location is a bit worrisome. will ck ECG to see if there are any changes and ck CTA chest to better quantify degree of her COPD and see if we can identify source of her condition. send EBV titres as well. (4) HTN (hypertension) Qualifiers: Hypertension type: essential hypertension Qualified Code(s): I10 - Essential (primary) hypertension Is this a current diagnosis for this admission?: Yes (5) Leukocytosis, unspecified Qualifiers: Leukocytosis type: leukemoid reaction Qualified Code(s): D72.823 - Leukemoid reaction Is this a current diagnosis for this admission?: YesPlan: hopefully just a leukomoid reaction to the infection and high dose steroids; will decrease the steroids and evaluate further as noted above; continue to monitor. differential is dominantly seg neuts. - Time Time Spent with patient: 35 or more minutes Medications reviewed and adjusted accordingly: Yes Anticipated discharge: Home Within: within 72 hours
[2016-05-01] MEDS: NYSTATIN/DEXAMETH/DIPHEN SUSP 120 ML PO SCH ×3 (17:53→21:16)
[2016-05-01] MEDS: RIVAROXABAN 10 MG TABLET PO SCH (17:54)
[2016-05-01] MEDS: ROPINIROLE HCL 1 MG TABLET PO SCH (21:15)
[2016-05-02] MEDS: ALBUTEROL SULFATE 0.083% NEB 2.5 MG/3 ML AMPUL NEB PRN ×3 (01:35→12:15)
[2016-05-02] MEDS: HYDROCODONE BIT/HOMATROPINE 5-1.5 MG TABLET PO SCH ×3 (05:20→21:57)
[2016-05-02] MEDS: LANSOPRAZOLE 30 MG TAB.RAP.DR PO SCH ×2 (05:20→17:01)
[2016-05-02 07:02] LABS: HEMATOCRIT 36.2 % (36.0-47.0); HEMOGLOBIN 11.6 g/dL (12.0-15.5); HGB HCT DIFFERENCE -1.4; MEAN CORPUSCULAR HEMOGLOBIN 28.3 pg (27.0-33.4); MEAN CORPUSCULAR HGB CONC 32.1 g/dL (32.0-36.0); MEAN CORPUSCULAR VOLUME 88 fl (80-97); RED CELL DISTRIBUTION WIDTH 15.9 % (11.5-14.0); WHITE BLOOD COUNT 27.2 10^3/uL (4.0-10.5)
[2016-05-02 07:11] LABS: BAND NEUTROPHILS % (MANUAL) 1 % (3-5); BASOPHILS % (MANUAL) 0 % (0-2); EOSINOPHILS % (MANUAL) 0 % (0-6); LYMPHOCYTES % (MANUAL) 8 % (13-45); TOTAL CELLS COUNTED 100
[2016-05-02 07:13] LABS: ANISOCYTOSIS SLIGHT; OVALOCYTES SLIGHT; POIKILOCYTOSIS SLIGHT; TOXIC GRANULATION SLIGHT
[2016-05-02] MEDS: GUAIFENESIN 600 MG TABLET.SA PO SCH ×2 (09:03→21:58)
[2016-05-02] MEDS: BUSPIRONE HCL 10 MG TABLET PO SCH ×2 (09:03→17:01)
[2016-05-02] MEDS: DILTIAZEM HCL 180 MG CAPSULE.CR PO SCH ×2 (09:03→21:57)
[2016-05-02] MEDS: LEVOTHYROXINE SODIUM 0.112 MG TABLET PO SCH (09:03)
[2016-05-02] MEDS: BUDESONIDE/FORMOTEROL 80-4.5 MCG 60 PUFF/6.9 GM MDI IH SCH ×2 (09:04→17:01)
[2016-05-02] MEDS: CITALOPRAM HYDROBROMIDE 20 MG TABLET PO SCH ×2 (09:04→21:57)
[2016-05-02] MEDS: NYSTATIN/DEXAMETH/DIPHEN SUSP 120 ML PO SCH ×4 (09:05→21:58)
[2016-05-02] MEDS: METHYLPREDNISOLONE INJ 125 MG/2 ML SDV IV SCH (09:05)
[2016-05-02] MEDS: TIOTROPIUM BROMIDE DPI 5 CAP/KIT (18 MCG/CAP) IH SCH (09:05)
[2016-05-02] MEDS: BENAZEPRIL HCL 20 MG TABLET PO SCH (09:06)
[2016-05-02] MEDS: NICOTINE 14 MG/24 HR PATCH.TD24 TD SCH (12:04)
--- NOTE | 2016-05-02 12:48 | PDOC PROGRESS REPORT ---
Subjective Progress Note for:: 05/02/16 Subjective:: Reason for visit: Follow-up pneumonia, acute on chronic hypoxic respiratory failure Hospital course: Per H&P "LEVI GIBBONS is a 66 year old female presents to the emergency department complaining of progressively worsening cough and shortness of breath over approximately the last 2 weeks. Patient reports history of COPD and states cough has become increasingly productive with green sputum. Reports associated chills with unmeasured temperature at home. States has been using home albuterol inhaler with minimal relief. Denies chest pain or hemoptysis. In the ED patient was diagnosed of COPD exacerbation and pneumonia She was quite dyspneic and was placed on BiPAP support She was subsequently admitted under hospitalist service to an IMCU unit" She was admitted to the hospital and started on supplemental O2, nebulizer therapy, systemic high dose IV steroids, and broad-spectrum antibiotics with cefepime and Levaquin. She does feel some better since her admission but is a long way from back to normal. I stopped her abxs 05/01/16 as she wasn't showing any improvement and began weaning her steroids down to see what effect this would have on her leukocytosis. today's differential and her initial one shows a mild monocytosis, with the constellation of symptoms, and developing buccal apthous ulcers I suspect a viral source for her respiratory issues as well. Subjective: feels about the same, no real improvement or worsening, still having wheezing, chest tightness and dyspnea with minimal exertion. ROS: per HPI plus a total of 10 systems reviewed, pertinent positives and negatives noted above, remaining systems negative. Physical Exam Vital Signs: Temp Pulse Resp BP Pulse Ox 98.4 F 84 20 129/68 H 96 05/02/16 07:20 05/02/16 07:45 05/02/16 07:45 05/02/16 07:20 05/02/16 07:45 Intake & Output 05/01/16 05/02/16 05/03/16 06:59 06:59 07:59 Intake Total 1372 910 Output Total 900 1800 Balance 472 -890 Weight 92.5 kg 96.1 kg EXAM GENERAL: NAD; well developed, well nourished; mild obese; alert and oriented to person, place, time, situation HEENT: normocephalic, atraumatic; no conjunctival injection, no scleral icterus ; oral mucosa dry; apthous ulcers bilat buccal mucosa and Rt post oropharynx RESPIRATORY: no accessory muscle use, mild increased WOB with minimal exertion , good air entry bilaterally; persistent bilateral rhonchi and end exp wheezes CARDIO: no JVD; no systolic murmur; no tachycardia; no chest wall tenderness GI: soft; nondistended; normal bowel sounds; no tympany: no rebound, rigidity, guarding; nontender VASCULAR: no abdominal bruit; no pallor; 2+ radial, DP pulse; normal capillary refill EXTREMITIES: no calf tender; no palpable cords in calf; no clubbing, cyanosis , pedal edema PSYCH: normal affect, normal mood SKIN: warm; moist; no petechiae; no telengectasias; no jaundice; no rash Results Laboratory Results: 05/02/16 05:03 04/30/16 05:07 05/02/16 05/02/16 05:03 05:03 WBC 27.2 H RBC 4.10 Hgb 11.6 L Hct 36.2 MCV 88 MCH 28.3 MCHC 32.1 RDW 15.9 H Plt Count 359 Seg Neutrophils % Not Reportable Lymphocytes % Not Reportable Monocytes % Not Reportable Eosinophils % Not Reportable Basophils % Not Reportable Absolute Neutrophils Not Reportable Absolute Lymphocytes Not Reportable Absolute Monocytes Not Reportable Absolute Eosinophils Not Reportable Absolute Basophils Not Reportable C-Reactive Protein 13.4 H 04/29/16 14:20 Sputum Gram Stain - Final 04/29/16 14:20 Sputum Sputum Culture - Final NORMAL RISHI Impressions: Chest/Abdomen CTA 05/01/16 00:00 IMPRESSION: No evidence for pulmonary embolic disease. Patchy densities are identified in the right lung most consistent with atelectatic changes although I cannot exclude minimal infiltrates. The left lung is clear. Other findings as noted above Assessment & Plan - Diagnosis (1) Acute respiratory failure with hypoxia Is this a current diagnosis for this admission?: YesPlan: no change in O2 requirements but has really plateaued and will not resolve. Continue supplemental O2, incentive spirometer, nebulizers. Wean off O2 as tolerated, patient does not use at home. (2) COPD exacerbation Is this a current diagnosis for this admission?: YesPlan: possible bacterial bronchitis and with her fixed lung disease she is at risk for gram-negative organisms, but I am more and more convinced this is viral given all the muscle aches/pains, apthous ulcers and failure to improve in spite of continued broad-spectrum antibiotics. d/c'd abx and decrease her steroid dose and continue to trend WBCs. otherwise continue treatment as above. (3) Pneumonia Qualifiers: Pneumonia type: due to unspecified organism Laterality: unspecified laterality Lung location: unspecified part of lung Qualified Code(s) : J18.9 - Pneumonia, unspecified organism Is this a current diagnosis for this admission?: YesPlan: I am not happy with her failure to improve and she does NOT impress me as someone who "likes" being sick and in the hospital. The onset of this pain makes me more convinced this is viral but its location is a bit worrisome. CTA chest shows bilateral haziness but no focal infiltrates. monospot and influenza neg; f/u EBV titres as well. (4) HTN (hypertension) Qualifiers: Hypertension type: essential hypertension Qualified Code(s): I10 - Essential (primary) hypertension Is this a current diagnosis for this admission?: YesPlan: Titrate regimen as needed. (5) Leukocytosis, unspecified Qualifiers: Leukocytosis type: leukemoid reaction Qualified Code(s): D72.823 - Leukemoid reaction Is this a current diagnosis for this admission?: YesPlan: hopefully just a leukomoid reaction to the viral infection and high dose steroids; will continue to decrease the steroids and continue to monitor. differential is dominantly seg neuts but has monocytosis as well. - Time Time Spent with patient: 25-34 minutes
[2016-05-02] MEDS: METHYLPREDNISOLONE INJ 40 MG/1 ML SDV IV SCH ×2 (13:19→21:58)
[2016-05-02] MEDS: ACETAMINOPHEN 325 MG TABLET PO PRN (13:25)
[2016-05-02] MEDS ORDERED: POLYETHYLENE GLYCOL 3350 POWDER 17 GM/1 PACKET PO PRN (15:54)
[2016-05-02] MEDS: ALBUTEROL SULFATE 0.083% NEB 2.5 MG/3 ML AMPUL NEB SCH (16:00)
[2016-05-02] MEDS: DOCUSATE SODIUM 100 MG CAPSULE PO SCH (17:01)
[2016-05-02] MEDS: RIVAROXABAN 10 MG TABLET PO SCH (17:05)
[2016-05-02] MEDS: ROPINIROLE HCL 1 MG TABLET PO SCH (21:57)
[2016-05-03] MEDS: ALBUTEROL SULFATE 0.083% NEB 2.5 MG/3 ML AMPUL NEB SCH ×3 (00:13→16:22)
[2016-05-03 05:36] LABS: HEMATOCRIT 35.8 % (36.0-47.0); HEMOGLOBIN 11.4 g/dL (12.0-15.5); HGB HCT DIFFERENCE -1.6; MEAN CORPUSCULAR HEMOGLOBIN 27.9 pg (27.0-33.4); MEAN CORPUSCULAR HGB CONC 31.8 g/dL (32.0-36.0); MEAN CORPUSCULAR VOLUME 88 fl (80-97); RED BLOOD COUNT 4.09 10^6/uL (3.72-5.28); RED CELL DISTRIBUTION WIDTH 15.8 % (11.5-14.0)
[2016-05-03] MEDS: LANSOPRAZOLE 30 MG TAB.RAP.DR PO SCH ×2 (05:52→17:57)
[2016-05-03] MEDS: METHYLPREDNISOLONE INJ 40 MG/1 ML SDV IV SCH (05:53)
[2016-05-03] MEDS: HYDROCODONE BIT/HOMATROPINE 5-1.5 MG TABLET PO SCH ×3 (05:53→21:06)
[2016-05-03 06:05] LABS: BAND NEUTROPHILS % (MANUAL) 2 % (3-5); BASOPHILS % (MANUAL) 0 % (0-2); EOSINOPHILS % (MANUAL) 0 % (0-6); LYMPHOCYTES % (MANUAL) 4 % (13-45); TOTAL CELLS COUNTED 100
[2016-05-03 06:09] LABS: ALANINE AMINOTRANSFERASE 39 U/L (9-52); ALBUMIN 2.7 g/dL (3.5-5.0); ALKALINE PHOSPHATASE 101 U/L (38-126); ANION GAP 5 (5-19); ASPARTATE AMINO TRANSFERASE 18 U/L (14-36); BILIRUBIN,TOTAL 0.3 mg/dL (0.2-1.3); BLOOD UREA NITROGEN 25 mg/dL (7-20); C-REACTIVE PROTEIN 8.1 mg/L (<10.0); CALCIUM 8.3 mg/dL (8.4-10.2); CARBON DIOXIDE 33 mmol/L (22-30); CHLORIDE 100 mmol/L (98-107); CREATININE RESULT 0.53 mg/dL (0.52-1.25); GLUCOSE 163 mg/dL (75-110); POTASSIUM 4.4 mmol/L (3.6-5.0); SODIUM 137.6 mmol/L (137-145); TOTAL PROTEIN 5.2 g/dL (6.3-8.2)
[2016-05-03 06:17] LABS: POLYCHROMASIA SLIGHT; TOXIC GRANULATION 1+; TOXIC VACUOLATION PRESENT
[2016-05-03 06:18] LABS: ANISOCYTOSIS SLIGHT; OVALOCYTES SLIGHT; POIKILOCYTOSIS SLIGHT
[2016-05-03 06:23] LABS: WHITE BLOOD COUNT 32.3 10^3/uL (4.0-10.5)
[2016-05-03] MEDS: LEVOTHYROXINE SODIUM 0.112 MG TABLET PO SCH (09:19)
[2016-05-03] MEDS: DILTIAZEM HCL 180 MG CAPSULE.CR PO SCH ×2 (09:20→21:06)
[2016-05-03] MEDS: BUSPIRONE HCL 10 MG TABLET PO SCH ×2 (09:20→17:57)
[2016-05-03] MEDS: BENAZEPRIL HCL 20 MG TABLET PO SCH (09:20)
[2016-05-03] MEDS: DOCUSATE SODIUM 100 MG CAPSULE PO SCH ×2 (09:20→17:57)
[2016-05-03] MEDS: GUAIFENESIN 600 MG TABLET.SA PO SCH ×2 (09:20→21:05)
[2016-05-03] MEDS: CITALOPRAM HYDROBROMIDE 20 MG TABLET PO SCH ×2 (09:20→21:06)
[2016-05-03] MEDS: NYSTATIN/DEXAMETH/DIPHEN SUSP 120 ML PO SCH ×4 (09:21→21:05)
[2016-05-03] MEDS: BUDESONIDE/FORMOTEROL 80-4.5 MCG 60 PUFF/6.9 GM MDI IH SCH ×2 (09:21→17:58)
[2016-05-03] MEDS: TIOTROPIUM BROMIDE DPI 5 CAP/KIT (18 MCG/CAP) IH SCH (11:08)
[2016-05-03] MEDS: NICOTINE 14 MG/24 HR PATCH.TD24 TD SCH (11:11)
--- NOTE | 2016-05-03 13:41 | PDOC PROGRESS REPORT ---
Subjective Progress Note for:: 05/03/16 Subjective:: Reason for visit: Follow-up pneumonia, acute on chronic hypoxic respiratory failure Hospital course: Per H&P "LEVI GIBBONS is a 66 year old female presents to the emergency department complaining of progressively worsening cough and shortness of breath over approximately the last 2 weeks. Patient reports history of COPD and states cough has become increasingly productive with green sputum. Reports associated chills with unmeasured temperature at home. States has been using home albuterol inhaler with minimal relief. Denies chest pain or hemoptysis. In the ED patient was diagnosed of COPD exacerbation and pneumonia She was quite dyspneic and was placed on BiPAP support She was subsequently admitted under hospitalist service to an IMCU unit" She was admitted to the hospital and started on supplemental O2, nebulizer therapy, systemic high dose IV steroids, and broad-spectrum antibiotics with cefepime and Levaquin. She does feel some better since her admission but is a long way from back to normal. I stopped her abxs 05/01/16 as she wasn't showing any improvement and began weaning her steroids down to see what effect this would have on her leukocytosis. today's differential and her initial one shows a mild monocytosis, with the constellation of symptoms, and developing buccal apthous ulcers I suspect a viral source for her respiratory issues as well. Subjective: still feels about the same, no real improvement or worsening, still having wheezing, chest tightness and dyspnea with minimal exertion. ROS: per HPI plus a total of 10 systems reviewed, pertinent positives and negatives noted above, remaining systems negative. Physical Exam Vital Signs: Temp Pulse Resp BP Pulse Ox 98.4 F 65 18 131/66 H 94 05/03/16 12:30 05/03/16 12:30 05/03/16 12:30 05/03/16 12:30 05/03/16 12:30 Intake & Output 05/02/16 05/03/16 05/04/16 05:59 06:59 06:59 Intake Total Output Total Balance Weight EXAM GENERAL: NAD; well developed, well nourished; mild obese; alert and oriented to person, place, time, situation HEENT: normocephalic, atraumatic; no conjunctival injection, no scleral icterus ; oral mucosa dry; worsening apthous ulcers bilat buccal mucosa and Rt post oropharynx RESPIRATORY: no accessory muscle use, mild increased WOB with minimal exertion , good air entry bilaterally; persistent bilateral rhonchi and end exp wheezes CARDIO: no JVD; no systolic murmur; no tachycardia; no chest wall tenderness GI: soft; nondistended; normal bowel sounds; no tympany: no rebound, rigidity, guarding; nontender VASCULAR: no abdominal bruit; no pallor; 2+ radial, DP pulse; normal capillary refill EXTREMITIES: no calf tender; no palpable cords in calf; no clubbing, cyanosis , pedal edema PSYCH: normal affect, normal mood SKIN: warm; moist; no petechiae; no telengectasias; no jaundice; no rash Results Laboratory Results: 05/03/16 05:15 05/03/16 05:15 05/03/16 05/03/16 05:15 05:15 WBC 32.3 H* RBC 4.09 Hgb 11.4 L Hct 35.8 L MCV 88 MCH 27.9 MCHC 31.8 L RDW 15.8 H Plt Count 344 Seg Neutrophils % Not Reportable Lymphocytes % Not Reportable Monocytes % Not Reportable Eosinophils % Not Reportable Basophils % Not Reportable Absolute Neutrophils Not Reportable Absolute Lymphocytes Not Reportable Absolute Monocytes Not Reportable Absolute Eosinophils Not Reportable Absolute Basophils Not Reportable Sodium 137.6 Potassium 4.4 Chloride 100 Carbon Dioxide 33 H Anion Gap 5 BUN 25 H Creatinine 0.53 Est GFR ( Amer) > 60 Est GFR (Non-Af Amer) > 60 Glucose 163 H Calcium 8.3 L Total Bilirubin 0.3 AST 18 ALT 39 Alkaline Phosphatase 101 C-Reactive Protein 8.1 Total Protein 5.2 L Albumin 2.7 L worseniing leukocytosis and bandemia Impressions: Chest X-Ray 04/27/16 05:17 IMPRESSION: Upper lobes are hyperinflated and hyperlucent from obstructive disease. There is interstitial infiltrate in the right and left lower lung, which may reflect a mixture of alveolar and interstitial edema superimposed on obstructive disease. Atypical pneumonia could not be excluded. Chest/Abdomen CTA 05/01/16 00:00 IMPRESSION: No evidence for pulmonary embolic disease. Patchy densities are identified in the right lung most consistent with atelectatic changes although I cannot exclude minimal infiltrates. The left lung is clear. Other findings as noted above Assessment & Plan - Diagnosis (1) Acute respiratory failure with hypoxia Is this a current diagnosis for this admission?: YesPlan: no change in O2 requirements and has really plateaued and will not resolve. Continue supplemental O2, incentive spirometer, nebulizers. Wean off O2 as tolerated, patient does not use at home. (2) COPD exacerbation Is this a current diagnosis for this admission?: YesPlan: possible bacterial bronchitis and with her fixed lung disease she is at risk for gram-negative organisms, but I am more and more convinced this is viral given all the muscle aches/pains, apthous ulcers and failure to improve in spite of several days of broad-spectrum antibiotics. d/c'd abx and decreased her steroid dose but WBCs continue to trend upward. will d/c steroids altogether. no diarrhea to suggest cdiff, if anything she is constipated. no adenopathy noted, no night sweats, no hemoptysis. no other symptoms than respiratory and oral to suggest an alternate source. consult hematology for another set of eyes and opinions. may need bone marrow if continues to worsen. (3) Pneumonia Qualifiers: Pneumonia type: due to unspecified organism Laterality: unspecified laterality Lung location: unspecified part of lung Qualified Code(s) : J18.9 - Pneumonia, unspecified organism Is this a current diagnosis for this admission?: YesPlan: I am not happy with her failure to improve and she does NOT impress me as someone who "likes" being sick and in the hospital. The constellation of symptoms makes me more convinced this is viral. CTA chest shows bilateral haziness but no focal infiltrates. monospot and influenza neg; f/u EBV titres ordered. (4) HTN (hypertension) Qualifiers: Hypertension type: essential hypertension Qualified Code(s): I10 - Essential (primary) hypertension Is this a current diagnosis for this admission?: YesPlan: Titrate regimen as needed. (5) Leukocytosis, unspecified Qualifiers: Leukocytosis type: leukemoid reaction Qualified Code(s): D72.823 - Leukemoid reaction Is this a current diagnosis for this admission?: YesPlan: hopefully just a leukomoid reaction to the viral infection and high dose steroids; d/c the steroids and continue to monitor. differential is dominantly seg neuts but has monocytosis as well. hematology consulted
[2016-05-03 15:37] LABS: EPSTEIN BARR EARLY AG IGG AB <9.0 U/mL (0.0-8.9)
[2016-05-03] MEDS: RIVAROXABAN 10 MG TABLET PO SCH (17:58)
[2016-05-03] MEDS: ROPINIROLE HCL 1 MG TABLET PO SCH (21:06)
[2016-05-04] MEDS: ALBUTEROL SULFATE 0.083% NEB 2.5 MG/3 ML AMPUL NEB SCH ×3 (00:07→15:55)
--- NOTE | 2016-05-04 00:17 | PDOC CONSULTATION ---
Consultation Consult Date: 05/04/16 Consult reason:: Leukocytosis History of Present Illness Admission Date/PCP: 04/27/16 10:06 AGUSTO AGRAWAL DO History of Present Illness: LEVI GIBBONS is a 66 year old female with a h/o ongoing tobacco abuse and h/o COPD who presented to the emergency department complaining of progressively worsening cough and shortness of breath over approximately the last 2 weeks. Patient reports history of COPD and states cough has become increasingly productive with green sputum. Reports associated chills with unmeasured temperature at home. Denies chest pain or hemoptysis. In the ED patient was diagnosed of COPD exacerbation and pneumonia She was quite dyspneic and was placed on BiPAP support initially with BSA. She had a negative nasal swab for flu and monospot was also negative. She was subsequently admitted under hospitalist service to an IMCU unit. She has had a progressively rising white count despite otherwise improving clinical picture. Past Medical History Cardiac Medical History: Reports: Atrial Fibrillation, Hypertension, Pulmonary Embolism - 30yrs ago Denies: Congestive Heart Failure, Coronary Artery Disease, Myocardial Infarction, Hyperlipidema, Peripheral Vascular Disease, Heart Murmur Pulmonary Medical History: Reports: Asthma, Bronchitis, Chronic Obstructive Pulmonary Disease (COPD), Pneumonia, Tuberculosis Denies: Respiratory Failure, Sleep Apnea Endocrine Medical History: Reports: Hypothyroidism Denies: Hyperthyroidism Renal/ Medical History: Denies: End Stage Renal Disease Malignancy Medical History: Denies: Lung Cancer GI Medical History: Reports: Gastroesophageal Reflux Disease Musculoskeltal Medical History: Reports: Arthritis Denies: Fibromyalgia Psychiatric Medical History: Reports: Depression Denies: Bipolar Disorder, Post Traumatic Stress Disorder Past Surgical History Past Surgical History: Reports: Hysterectomy, Orthopedic Surgery - CARPAL TUNNEL RELEASE, GANGLION CYST REMOVAL, TRIGGER FINGER RELEASE, Tubal Ligation Denies: Amputation, Appendectomy, Section, Cholecystectomy, Coronary Artery Bypass Graft, Gastric Bypass Surgery, Herniorrhaphy, Mastectomy , Pacemaker, Tonsillectomy Social History Lives with: Family Smoking Status: Current Every Day Smoker Cigarettes Packs Per Day: 30 Number of Years Smokin Last Time Smoked: 04/14/16 Frequency of Alcohol Use: Rare Hx Recreational Drug Use: No Hx Prescription Drug Abuse: No - Advance Directive Resuscitation Status: Full Code Family History Family History: Reviewed & Not Pertinent Parental Family History Reviewed: Yes Children Family History Reviewed: Yes Sibling(s) Family History Reviewed.: Yes Medication/Allergy Home Medications: Albuterol Sulfate [Albuterol Sulfate 2.5mg/3 mL] 1 vial NEB Q4 04/27/16 Albuterol Sulfate [Ventolin Hfa] 1 puff IH Q4 04/27/16 Benazepril HCl [Lotensin 20 mg Tablet] 20 mg PO DAILY 04/27/16 Budesonide/Formoterol Fumarate [Symbicort HFA 80-4.5 mcg Inhaler 6.9 gm] 2 puff IH BID 04/27/16 Buspirone HCl [Buspar 5 mg Tablet] 5 mg PO BID 04/27/16 Citalopram Hydrobromide [Celexa 20 mg Tablet] 20 mg PO QHS 04/27/16 Citalopram Hydrobromide [Celexa 40 mg Tablet] 40 mg PO DAILY 04/27/16 Diltiazem HCl [Diltiazem ER] 180 mg PO BID 04/27/16 Levothyroxine Sodium [Synthroid 0.112 mg Tablet] 1 tab PO DAILY 04/27/16 Montelukast Sodium [Singulair 10 mg Tablet] 10 mg PO DAILY 04/27/16 Rivaroxaban [Xarelto] 20 mg PO WSUPPER 04/27/16 Ropinirole HCl 1 mg PO QHS 04/27/16 Tiotropium [place] [Spiriva Handihaler 18 mcg/dose (30 Dose)] 1 cap IH DAILY 08/08 Allergies/Adverse Reactions: hydromorphone HCl [From Dilaudid] Allergy (Intermediate, Verified 04/27/16 05:05 ) Review of Systems Constitutional: PRESENT: as per HPI Cardiovascular: PRESENT: dyspnea on exertion Respiratory: PRESENT: dyspnea Integumentary: PRESENT: as per HPI Neurological: PRESENT: as per HPI Physical Exam Vital Signs: Temp Pulse Resp BP Pulse Ox 98.7 F 90 22 H 127/76 H 97 05/03/16 23:18 05/03/16 23:18 05/03/16 23:18 05/03/16 23:18 05/03/16 23:18 Intake & Output 05/02/16 05/03/16 05/04/16 05:59 06:59 06:59 Intake Total 570 Output Total 400 Balance 170 Weight General appearance: PRESENT: mild distress Head exam: PRESENT: normocephalic Eye exam: PRESENT: EOMI, PERRLA Ear exam: PRESENT: normal external ear exam Mouth exam: PRESENT: moist Respiratory exam: PRESENT: prolonged expiratory phas, rhonchi, wheezes Cardiovascular exam: PRESENT: RRR GI/Abdominal exam: PRESENT: normal bowel sounds, soft Musculoskeletal exam: PRESENT: full ROM Neurological exam: PRESENT: alert, awake, oriented to person, oriented to place , oriented to time, oriented to situation, CN II-XII grossly intact Psychiatric exam: PRESENT: appropriate affect Results Laboratory Results: 05/03/16 05:15 05/03/16 05:15 05/03/16 05/03/16 05:15 05:15 WBC 32.3 H* RBC 4.09 Hgb 11.4 L Hct 35.8 L MCV 88 MCH 27.9 MCHC 31.8 L RDW 15.8 H Plt Count 344 Seg Neutrophils % Not Reportable Lymphocytes % Not Reportable Monocytes % Not Reportable Eosinophils % Not Reportable Basophils % Not Reportable Absolute Neutrophils Not Reportable Absolute Lymphocytes Not Reportable Absolute Monocytes Not Reportable Absolute Eosinophils Not Reportable Absolute Basophils Not Reportable Sodium 137.6 Potassium 4.4 Chloride 100 Carbon Dioxide 33 H Anion Gap 5 BUN 25 H Creatinine 0.53 Est GFR ( Amer) > 60 Est GFR (Non-Af Amer) > 60 Glucose 163 H Calcium 8.3 L Total Bilirubin 0.3 AST 18 ALT 39 Alkaline Phosphatase 101 C-Reactive Protein 8.1 Total Protein 5.2 L Albumin 2.7 L Impressions: Chest X-Ray 04/27/16 05:17 IMPRESSION: Upper lobes are hyperinflated and hyperlucent from obstructive disease. There is interstitial infiltrate in the right and left lower lung, which may reflect a mixture of alveolar and interstitial edema superimposed on obstructive disease. Atypical pneumonia could not be excluded. Chest/Abdomen CTA 05/01/16 00:00 IMPRESSION: No evidence for pulmonary embolic disease. Patchy densities are identified in the right lung most consistent with atelectatic changes although I cannot exclude minimal infiltrates. The left lung is clear. Other findings as noted above Assessment & Plan - Diagnosis (1) COPD exacerbation Is this a current diagnosis for this admission?: YesPlan: Currently on pulmonary toilet and ABX (2) Leukocytosis, unspecified Qualifiers: Leukocytosis type: leukemoid reaction Qualified Code(s): D72.823 - Leukemoid reaction Is this a current diagnosis for this admission?: YesPlan: Possibly reactive but will evaluate for a myeloproliferative process with her am labs which was discussed with her (3) Pneumonia Qualifiers: Pneumonia type: due to unspecified organism Laterality: unspecified laterality Lung location: unspecified part of lung Qualified Code(s) : J18.9 - Pneumonia, unspecified organism Is this a current diagnosis for this admission?: YesPlan: Treat with antibiotics - Time Time Spent: 50 to 70 Minutes Critical Time spent with patient: 15-24 minutes Medications reviewed and adjusted accordingly: Yes Anticipated discharge: Home Within: within 48 hours - Inpatient Certification Based on my medical assessment, after consideration of the patient's comorbidities, presenting symptoms, or acuity I expect that the services needed warrant INPATIENT care.: Yes I certify that my determination is in accordance with my understanding of Medicare's requirements for reasonable and necessary INPATIENT services [42 CFR 412.3e].: Yes Medical Necessity: Failure to Improve With Outpatient Therapy
[2016-05-04] MEDS: ALBUTEROL SULFATE 0.083% NEB 2.5 MG/3 ML AMPUL NEB PRN (02:20)
[2016-05-04] MEDS: LANSOPRAZOLE 30 MG TAB.RAP.DR PO SCH ×2 (05:06→16:15)
[2016-05-04] MEDS: HYDROCODONE BIT/HOMATROPINE 5-1.5 MG TABLET PO SCH ×3 (05:06→21:23)
[2016-05-04 06:47] LABS: HEMATOCRIT 34.8 % (36.0-47.0); HEMOGLOBIN 11.1 g/dL (12.0-15.5); HGB HCT DIFFERENCE -1.5; MEAN CORPUSCULAR HEMOGLOBIN 28.1 pg (27.0-33.4); MEAN CORPUSCULAR HGB CONC 31.9 g/dL (32.0-36.0); MEAN CORPUSCULAR VOLUME 88 fl (80-97); RED BLOOD COUNT 3.95 10^6/uL (3.72-5.28); RED CELL DISTRIBUTION WIDTH 15.8 % (11.5-14.0)
[2016-05-04 06:50] LABS: C-REACTIVE PROTEIN 6.4 mg/L (<10.0)
[2016-05-04 07:00] LABS: WHITE BLOOD COUNT 34.2 10^3/uL (4.0-10.5)
[2016-05-04 07:05] LABS: BAND NEUTROPHILS % (MANUAL) 1 % (3-5); BASOPHILS % (MANUAL) 0 % (0-2); EOSINOPHILS % (MANUAL) 0 % (0-6); LYMPHOCYTES % (MANUAL) 6 % (13-45); TOTAL CELLS COUNTED 100
[2016-05-04 07:08] LABS: ANISOCYTOSIS 1+; OVALOCYTES 1+; POIKILOCYTOSIS 1+; TOXIC VACUOLATION PRESENT
[2016-05-04] MEDS: LEVOTHYROXINE SODIUM 0.112 MG TABLET PO SCH (08:21)
[2016-05-04] MEDS: CITALOPRAM HYDROBROMIDE 20 MG TABLET PO SCH ×2 (10:43→21:23)
[2016-05-04] MEDS: BENAZEPRIL HCL 20 MG TABLET PO SCH (10:46)
[2016-05-04] MEDS: BUSPIRONE HCL 10 MG TABLET PO SCH ×2 (10:47→17:19)
[2016-05-04] MEDS: DILTIAZEM HCL 180 MG CAPSULE.CR PO SCH ×2 (10:47→21:24)
[2016-05-04] MEDS: GUAIFENESIN 600 MG TABLET.SA PO SCH ×2 (10:48→21:23)
[2016-05-04] MEDS: DOCUSATE SODIUM 100 MG CAPSULE PO SCH ×2 (10:49→17:19)
[2016-05-04] MEDS: BUDESONIDE/FORMOTEROL 80-4.5 MCG 60 PUFF/6.9 GM MDI IH SCH ×2 (10:50→17:20)
[2016-05-04] MEDS: TIOTROPIUM BROMIDE DPI 5 CAP/KIT (18 MCG/CAP) IH SCH (10:51)
[2016-05-04] MEDS: NYSTATIN/DEXAMETH/DIPHEN SUSP 120 ML PO SCH ×4 (10:54→21:24)
[2016-05-04] MEDS ORDERED: FLUCONAZOLE 100 MG TABLET PO ONE (11:00)
[2016-05-04] MEDS: NICOTINE 14 MG/24 HR PATCH.TD24 TD SCH (11:05)
[2016-05-04] MEDS: RIVAROXABAN 10 MG TABLET PO SCH (16:15)
--- NOTE | 2016-05-04 16:15 | PDOC PROGRESS REPORT ---
Subjective Progress Note for:: 05/04/16 Subjective:: Reason for visit: Follow-up pneumonia, acute on chronic hypoxic respiratory failure Hospital course: Per H&P "LEVI GIBBONS is a 66 year old female presents to the emergency department complaining of progressively worsening cough and shortness of breath over approximately the last 2 weeks. Patient reports history of COPD and states cough has become increasingly productive with green sputum. Reports associated chills with unmeasured temperature at home. States has been using home albuterol inhaler with minimal relief. Denies chest pain or hemoptysis. In the ED patient was diagnosed of COPD exacerbation and pneumonia She was quite dyspneic and was placed on BiPAP support She was subsequently admitted under hospitalist service to an IMCU unit" She was admitted to the hospital and started on supplemental O2, nebulizer therapy, systemic high dose IV steroids, and broad-spectrum antibiotics with cefepime and Levaquin. She initially feltsome better since her admission but plateaued and never returned back to normal. I stopped her abxs 05/01/16 as she wasn't showing any improvement and began weaning her steroids down, tapering them off 05/03/16 to see what effect this would have on her leukocytosis. So far there is no difference in her leukocytosis or her clinical condition. today 's differential and her initial one shows a mild monocytosis, and with her constellation of symptoms, and developing buccal apthous ulcers I suspect a viral source for her overall presentation and respiratory issues as well. Dr Winkler consulted for evaluation of the leukocytosis, many of those labs are still pending. Subjective: still feels about the same, no real improvement or worsening, still having wheezing, chest tightness and dyspnea with minimal exertion. ROS: per HPI plus a total of 10 systems reviewed, pertinent positives and negatives noted above, remaining systems negative. Physical Exam Vital Signs: Temp Pulse Resp BP Pulse Ox 98.4 F 77 18 122/67 95 05/04/16 13:40 05/04/16 15:57 05/04/16 15:57 05/04/16 13:40 05/04/16 15:57 Intake & Output 05/03/16 05/04/16 05/05/16 06:59 06:59 06:59 Intake Total 1990 500 Output Total 400 800 Balance 1590 -300 Weight 98 kg EXAM GENERAL: NAD; well developed, well nourished; mild obese; alert and oriented to person, place, time, situation HEENT: normocephalic, atraumatic; no conjunctival injection, no scleral icterus ; oral mucosa dry; worsening apthous ulcers bilat buccal mucosa and Rt post oropharynx with 'geographic' leukoplakia noted RESPIRATORY: no accessory muscle use, mild increased WOB with minimal exertion , good air entry bilaterally; persistent bilateral rhonchi and end exp wheezes though much improved from when I met her last week CARDIO: no JVD; no systolic murmur; no tachycardia; no chest wall tenderness GI: soft; nondistended; normal bowel sounds; no tympany: no rebound, rigidity, guarding; nontender VASCULAR: no abdominal bruit; no pallor; 2+ radial, DP pulse; normal capillary refill EXTREMITIES: no calf tender; no palpable cords in calf; no clubbing, cyanosis , pedal edema PSYCH: normal affect, normal mood SKIN: warm; moist; no petechiae; no telengectasias; no jaundice; no rash Results Laboratory Results: 05/04/16 06:15 05/03/16 05:15 05/03/16 05/04/16 05/04/16 05:15 06:15 06:15 WBC 32.3 H* 34.2 H* RBC 4.09 3.95 Hgb 11.4 L 11.1 L Hct 35.8 L 34.8 L MCV 88 88 MCH 27.9 28.1 MCHC 31.8 L 31.9 L RDW 15.8 H 15.8 H Plt Count 344 296 Seg Neutrophils % Not Reportable Lymphocytes % Not Reportable Monocytes % Not Reportable Eosinophils % Not Reportable Basophils % Not Reportable Absolute Neutrophils Not Reportable Absolute Lymphocytes Not Reportable Absolute Monocytes Not Reportable Absolute Eosinophils Not Reportable Absolute Basophils Not Reportable Lactic Acid 1.9 C-Reactive Protein 05/04/16 06:15 WBC RBC Hgb Hct MCV MCH MCHC RDW Plt Count Seg Neutrophils % Lymphocytes % Monocytes % Eosinophils % Basophils % Absolute Neutrophils Absolute Lymphocytes Absolute Monocytes Absolute Eosinophils Absolute Basophils Lactic Acid C-Reactive Protein 6.4 Impressions: Chest X-Ray 04/27/16 05:17 IMPRESSION: Upper lobes are hyperinflated and hyperlucent from obstructive disease. There is interstitial infiltrate in the right and left lower lung, which may reflect a mixture of alveolar and interstitial edema superimposed on obstructive disease. Atypical pneumonia could not be excluded. Chest/Abdomen CTA 05/01/16 00:00 IMPRESSION: No evidence for pulmonary embolic disease. Patchy densities are identified in the right lung most consistent with atelectatic changes although I cannot exclude minimal infiltrates. The left lung is clear. Other findings as noted above Assessment & Plan - Diagnosis (1) Viral syndrome Is this a current diagnosis for this admission?: YesPlan: I suspect this is been a viral syndrome from presentation and she failed to respond to broad-spectrum antibiotics and feels no different several days after their cessation. She screened negative for influenza and Monospot and her EBV titers confirm only of previous exposure but not active or reactivation disease. Continue supportive care (2) Acute respiratory failure with hypoxia Is this a current diagnosis for this admission?: YesPlan: no change in O2 requirements and has really plateaued and will not resolve. Continue supplemental O2, incentive spirometer, nebulizers. Wean off O2 as tolerated, patient does not use at home. (3) Leukocytosis, unspecified Qualifiers: Leukocytosis type: leukemoid reaction Qualified Code(s): D72.823 - Leukemoid reaction Is this a current diagnosis for this admission?: YesPlan: hopefully just a leukomoid reaction to the viral infection and high dose steroids; d/c the steroids and continue to monitor. differential is dominantly seg neuts with mild bandemia but has monocytosis as well. hematology consulted and awaiting the results of her lab evaluation. Repeat CBC in the morning and if WBCs are finally starting to trend down she can likely be discharged home with follow-up as an outpatient. (4) COPD exacerbation Is this a current diagnosis for this admission?: Yes (5) Pneumonia Qualifiers: Pneumonia type: due to unspecified organism Laterality: unspecified laterality Lung location: unspecified part of lung Qualified Code(s) : J18.9 - Pneumonia, unspecified organism Is this a current diagnosis for this admission?: Yes (6) HTN (hypertension) Qualifiers: Hypertension type: essential hypertension Qualified Code(s): I10 - Essential (primary) hypertension Is this a current diagnosis for this admission?: Yes (7) Oral leukoplakia Is this a current diagnosis for this admission?: YesPlan: Initially thought to be part of the viral syndrome but now concerning for Phyllis infection not responding to topical treatment (nystatin swish and swallow). Will add oral Diflucan. we'll screen for HIV - Time Time Spent with patient: 25-34 minutes
--- NOTE | 2016-05-04 17:11 | PDOC PROGRESS REPORT ---
Subjective Progress Note for:: 05/04/16 Subjective:: Other than respiratory symptoms, she is feeling better and eating well. Physical Exam Vital Signs: Temp Pulse Resp BP Pulse Ox 98.3 F 70 18 116/59 L 96 05/04/16 16:10 05/04/16 16:10 05/04/16 16:10 05/04/16 16:10 05/04/16 16:10 Intake & Output 05/03/16 05/04/16 05/05/16 06:59 06:59 06:59 Intake Total 1990 500 Output Total 400 800 Balance 1590 -300 Weight 98 kg General appearance: PRESENT: no acute distress Head exam: PRESENT: normocephalic Eye exam: PRESENT: EOMI, PERRLA Mouth exam: PRESENT: tongue midline Respiratory exam: PRESENT: prolonged expiratory phas, rhonchi, wheezes Cardiovascular exam: PRESENT: RRR Musculoskeletal exam: PRESENT: ambulatory, full ROM Neurological exam: PRESENT: alert, awake, oriented to person, oriented to place , oriented to time, oriented to situation, CN II-XII grossly intact Results Laboratory Results: 05/04/16 06:15 05/03/16 05:15 05/03/16 05/04/16 05/04/16 05:15 06:15 06:15 WBC 32.3 H* 34.2 H* RBC 4.09 3.95 Hgb 11.4 L 11.1 L Hct 35.8 L 34.8 L MCV 88 88 MCH 27.9 28.1 MCHC 31.8 L 31.9 L RDW 15.8 H 15.8 H Plt Count 344 296 Seg Neutrophils % Not Reportable Lymphocytes % Not Reportable Monocytes % Not Reportable Eosinophils % Not Reportable Basophils % Not Reportable Absolute Neutrophils Not Reportable Absolute Lymphocytes Not Reportable Absolute Monocytes Not Reportable Absolute Eosinophils Not Reportable Absolute Basophils Not Reportable Lactic Acid 1.9 C-Reactive Protein 05/04/16 06:15 WBC RBC Hgb Hct MCV MCH MCHC RDW Plt Count Seg Neutrophils % Lymphocytes % Monocytes % Eosinophils % Basophils % Absolute Neutrophils Absolute Lymphocytes Absolute Monocytes Absolute Eosinophils Absolute Basophils Lactic Acid C-Reactive Protein 6.4 Impressions: Chest X-Ray 04/27/16 05:17 IMPRESSION: Upper lobes are hyperinflated and hyperlucent from obstructive disease. There is interstitial infiltrate in the right and left lower lung, which may reflect a mixture of alveolar and interstitial edema superimposed on obstructive disease. Atypical pneumonia could not be excluded. Chest/Abdomen CTA 05/01/16 00:00 IMPRESSION: No evidence for pulmonary embolic disease. Patchy densities are identified in the right lung most consistent with atelectatic changes although I cannot exclude minimal infiltrates. The left lung is clear. Other findings as noted above Assessment & Plan - Diagnosis (1) COPD exacerbation Is this a current diagnosis for this admission?: YesPlan: She remains on pulmonary toilet and O2, nebs. (2) Leukocytosis, unspecified Qualifiers: Leukocytosis type: leukemoid reaction Qualified Code(s): D72.823 - Leukemoid reaction Is this a current diagnosis for this admission?: YesPlan: Have sent off flow cytometry which we discussed with her. Also awaiting FISH BCR /abl, Hamzah 2 gene mutation (3) Pneumonia Qualifiers: Pneumonia type: due to unspecified organism Laterality: unspecified laterality Lung location: unspecified part of lung Qualified Code(s) : J18.9 - Pneumonia, unspecified organism Is this a current diagnosis for this admission?: Yes - Time Time Spent with patient: 25-34 minutes Critical Time spent with patient: 15-24 minutes Medications reviewed and adjusted accordingly: Yes Anticipated discharge: Home Within: within 48 hours
[2016-05-04] MEDS: ROPINIROLE HCL 1 MG TABLET PO SCH (21:23)
[2016-05-05] MEDS: ALBUTEROL SULFATE 0.083% NEB 2.5 MG/3 ML AMPUL NEB SCH ×3 (00:03→16:36)
[2016-05-05] MEDS: HYDROCODONE BIT/HOMATROPINE 5-1.5 MG TABLET PO SCH ×3 (05:42→22:07)
[2016-05-05] MEDS: LANSOPRAZOLE 30 MG TAB.RAP.DR PO SCH ×2 (05:43→17:28)
[2016-05-05 06:35] LABS: HEMATOCRIT 35.2 % (36.0-47.0); HEMOGLOBIN 11.1 g/dL (12.0-15.5); HGB HCT DIFFERENCE -1.9; MEAN CORPUSCULAR HEMOGLOBIN 27.8 pg (27.0-33.4); MEAN CORPUSCULAR HGB CONC 31.6 g/dL (32.0-36.0); MEAN CORPUSCULAR VOLUME 88 fl (80-97); RED CELL DISTRIBUTION WIDTH 16.1 % (11.5-14.0); WHITE BLOOD COUNT 29.7 10^3/uL (4.0-10.5)
[2016-05-05 07:12] LABS: BAND NEUTROPHILS % (MANUAL) 2 % (3-5); BASOPHILS % (MANUAL) 0 % (0-2); EOSINOPHILS % (MANUAL) 0 % (0-6); LYMPHOCYTES % (MANUAL) 11 % (13-45); TOTAL CELLS COUNTED 100
[2016-05-05 07:13] LABS: ANISOCYTOSIS SLIGHT; OVALOCYTES SLIGHT; POIKILOCYTOSIS SLIGHT; SCHISTOCYTES SLIGHT; TOXIC GRANULATION SLIGHT; TOXIC VACUOLATION PRESENT
[2016-05-05 07:31] LABS: ADD HIVPANEL? NO; HIV (1 AND 2) ANTIBODY NEGATIVE (NEGATIVE)
[2016-05-05] MEDS: LEVOTHYROXINE SODIUM 0.112 MG TABLET PO SCH (07:44)
[2016-05-05] MEDS: CITALOPRAM HYDROBROMIDE 20 MG TABLET PO SCH ×2 (09:22→22:07)
[2016-05-05] MEDS: DOCUSATE SODIUM 100 MG CAPSULE PO SCH ×2 (09:23→17:29)
[2016-05-05] MEDS: BUSPIRONE HCL 10 MG TABLET PO SCH ×2 (09:23→17:27)
[2016-05-05] MEDS: GUAIFENESIN 600 MG TABLET.SA PO SCH ×2 (09:23→22:06)
[2016-05-05] MEDS: FLUCONAZOLE 100 MG TABLET PO SCH (09:26)
[2016-05-05] MEDS: BUDESONIDE/FORMOTEROL 80-4.5 MCG 60 PUFF/6.9 GM MDI IH SCH ×2 (09:26→17:34)
[2016-05-05] MEDS: NYSTATIN/DEXAMETH/DIPHEN SUSP 120 ML PO SCH ×4 (09:26→22:12)
[2016-05-05] MEDS: TIOTROPIUM BROMIDE DPI 5 CAP/KIT (18 MCG/CAP) IH SCH (09:27)
[2016-05-05] MEDS: DILTIAZEM HCL 180 MG CAPSULE.CR PO SCH ×2 (09:30→22:06)
[2016-05-05] MEDS: BENAZEPRIL HCL 20 MG TABLET PO SCH (09:31)
[2016-05-05] MEDS: NICOTINE 14 MG/24 HR PATCH.TD24 TD SCH (12:46)
--- NOTE | 2016-05-05 12:46 | PDOC PROGRESS REPORT ---
Subjective Progress Note for:: 05/05/16 Subjective:: Doing well today. Breathing better. Physical Exam Vital Signs: Temp Pulse Resp BP Pulse Ox 97.7 F 75 18 118/61 96 05/05/16 12:26 05/05/16 12:26 05/05/16 12:26 05/05/16 12:26 05/05/16 12:26 Intake & Output 05/04/16 05/05/16 05/06/16 06:59 06:59 06:59 Intake Total 1990 2310 500 Output Total 400 1600 1800 Balance 1590 710 -1300 Weight 98 kg 98.7 kg General appearance: PRESENT: no acute distress Head exam: PRESENT: normocephalic Eye exam: PRESENT: EOMI, PERRLA Ear exam: PRESENT: normal external ear exam Mouth exam: PRESENT: moist, tongue midline Respiratory exam: PRESENT: unlabored Cardiovascular exam: PRESENT: RRR GI/Abdominal exam: PRESENT: soft Neurological exam: PRESENT: alert, oriented to person, oriented to place, oriented to time, oriented to situation, CN II-XII grossly intact Results Laboratory Results: 05/05/16 05:15 05/03/16 05:15 05/03/16 05/05/16 05:15 05:15 WBC 32.3 H* 29.7 H RBC 4.09 4.00 Hgb 11.4 L 11.1 L Hct 35.8 L 35.2 L MCV 88 88 MCH 27.9 27.8 MCHC 31.8 L 31.6 L RDW 15.8 H 16.1 H Plt Count 344 254 Seg Neutrophils % Not Reportable Lymphocytes % Not Reportable Monocytes % Not Reportable Eosinophils % Not Reportable Basophils % Not Reportable Absolute Neutrophils Not Reportable Absolute Lymphocytes Not Reportable Absolute Monocytes Not Reportable Absolute Eosinophils Not Reportable Absolute Basophils Not Reportable Impressions: Chest X-Ray 04/27/16 05:17 IMPRESSION: Upper lobes are hyperinflated and hyperlucent from obstructive disease. There is interstitial infiltrate in the right and left lower lung, which may reflect a mixture of alveolar and interstitial edema superimposed on obstructive disease. Atypical pneumonia could not be excluded. Chest/Abdomen CTA 05/01/16 00:00 IMPRESSION: No evidence for pulmonary embolic disease. Patchy densities are identified in the right lung most consistent with atelectatic changes although I cannot exclude minimal infiltrates. The left lung is clear. Other findings as noted above Assessment & Plan - Diagnosis (1) COPD exacerbation Is this a current diagnosis for this admission?: YesPlan: She remains on pulmonary toilet and O2, nebs. Hopefully home soon. (2) Leukocytosis, unspecified Qualifiers: Leukocytosis type: leukemoid reaction Qualified Code(s): D72.823 - Leukemoid reaction Is this a current diagnosis for this admission?: YesPlan: Have sent off flow cytometry which we discussed with her. Also awaiting FISH BCR /abl, Hamzah 2 gene mutation. Discussed following up as an outpatient (3) Pneumonia Qualifiers: Pneumonia type: due to unspecified organism Laterality: unspecified laterality Lung location: unspecified part of lung Qualified Code(s) : J18.9 - Pneumonia, unspecified organism Is this a current diagnosis for this admission?: YesPlan: Treated with antibiotics
--- NOTE | 2016-05-05 13:24 | PDOC PROGRESS REPORT ---
Subjective Progress Note for:: 05/05/16 Subjective:: Patient states she's feeling better No chest pain no fever no chills She still has a great deal of wheezing She is off BiPAP support Physical Exam Vital Signs: Temp Pulse Resp BP Pulse Ox 97.7 F 75 18 118/61 96 05/05/16 12:26 05/05/16 12:26 05/05/16 12:26 05/05/16 12:26 05/05/16 12:26 Intake & Output 05/04/16 05/05/16 05/06/16 00:59 00:59 00:59 Intake Total 550 3005 675 Output Total 1400 2000 Balance 550 1605 -1325 Weight 98 kg 98.7 kg General appearance: PRESENT: no acute distress Head exam: PRESENT: atraumatic, normocephalic Neck exam: ABSENT: carotid bruit, JVD, lymphadenopathy, thyromegaly Respiratory exam: PRESENT: decreased breath sounds, wheezes - Bilaterally. ABSENT: rales, rhonchi Cardiovascular exam: PRESENT: irregular rhythm. ABSENT: rubs, systolic murmur Pulses: PRESENT: normal dorsalis pedis pul GI/Abdominal exam: PRESENT: normal bowel sounds, soft. ABSENT: distended, guarding, mass, organolmegaly, rebound, tenderness Extremities exam: PRESENT: full ROM. ABSENT: calf tenderness, clubbing, pedal edema Neurological exam: PRESENT: alert, awake, oriented to person, oriented to place , oriented to time, oriented to situation, CN II-XII grossly intact. 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 There is interstitial infiltrate in the right and left lower lung, which may reflect a mixture of alveolar and interstitial edema superimposed on obstructive disease. Atypical pneumonia could not be excluded. Chest/Abdomen CTA 05/01/16 00:00 IMPRESSION: No evidence for pulmonary embolic disease. Patchy densities are identified in the right lung most consistent with atelectatic changes although I cannot exclude minimal infiltrates. The left lung is clear. Other findings as noted above Assessment & Plan - Diagnosis (1) Pneumonia Qualifiers: Pneumonia type: due to unspecified organism Laterality: unspecified laterality Lung location: unspecified part of lung Qualified Code(s) : J18.9 - Pneumonia, unspecified organism Is this a current diagnosis for this admission?: YesPlan: Improving continue present management (2) Respiratory failure Qualifiers: Chronicity: acute on chronic Is this a current diagnosis for this admission?: Yes (3) COPD exacerbation Is this a current diagnosis for this admission?: YesPlan: Improving taper steroids (4) Full code status Is this a current diagnosis for this admission?: Yes (5) Chronic atrial fibrillation Is this a current diagnosis for this admission?: Yes (6) Leukocytosis, unspecified Qualifiers: Leukocytosis type: leukemoid reaction Qualified Code(s): D72.823 - Leukemoid reaction Is this a current diagnosis for this admission?: YesPlan: Workup initiated by Dr. Winkler Patient to be followed as an outpatient - Time Time Spent with patient: 25-34 minutes
[2016-05-05] MEDS: RIVAROXABAN 10 MG TABLET PO SCH (17:32)
[2016-05-05] MEDS: ROPINIROLE HCL 1 MG TABLET PO SCH (22:07)
[2016-05-06] MEDS: ALBUTEROL SULFATE 0.083% NEB 2.5 MG/3 ML AMPUL NEB SCH ×3 (00:40→16:14)
[2016-05-06] MEDS ORDERED: CALCIUM CARBONATE 500 MG TAB.CHEW PO ONE (03:45)
[2016-05-06] MEDS ORDERED: LANSOPRAZOLE 30 MG TAB.RAP.DR PO ONE (03:45)
[2016-05-06] MEDS: HYDROCODONE BIT/HOMATROPINE 5-1.5 MG TABLET PO SCH ×3 (05:14→21:43)
[2016-05-06] MEDS: LANSOPRAZOLE 30 MG TAB.RAP.DR PO SCH ×3 (05:14→17:27)
[2016-05-06] MEDS: CALCIUM CARBONATE 500 MG TAB.CHEW PO SCH ×3 (08:15→20:28)
[2016-05-06] MEDS: LEVOTHYROXINE SODIUM 0.112 MG TABLET PO SCH (08:15)
[2016-05-06] MEDS: BUSPIRONE HCL 10 MG TABLET PO SCH ×2 (09:17→17:27)
[2016-05-06] MEDS: GUAIFENESIN 600 MG TABLET.SA PO SCH ×2 (09:18→21:45)
[2016-05-06] MEDS: DILTIAZEM HCL 180 MG CAPSULE.CR PO SCH ×2 (09:18→21:45)
[2016-05-06] MEDS: CITALOPRAM HYDROBROMIDE 20 MG TABLET PO SCH ×2 (09:18→21:45)
[2016-05-06] MEDS: FLUCONAZOLE 100 MG TABLET PO SCH (09:19)
[2016-05-06] MEDS: TIOTROPIUM BROMIDE DPI 5 CAP/KIT (18 MCG/CAP) IH SCH (09:19)
[2016-05-06] MEDS: DOCUSATE SODIUM 100 MG CAPSULE PO SCH ×2 (09:19→17:27)
[2016-05-06] MEDS: BENAZEPRIL HCL 20 MG TABLET PO SCH (09:19)
[2016-05-06 09:20] LABS: HEMATOCRIT 36.4 % (36.0-47.0); HEMOGLOBIN 11.5 g/dL (12.0-15.5); HGB HCT DIFFERENCE -1.9; MEAN CORPUSCULAR HEMOGLOBIN 28.1 pg (27.0-33.4); MEAN CORPUSCULAR HGB CONC 31.7 g/dL (32.0-36.0); MEAN CORPUSCULAR VOLUME 89 fl (80-97); RED CELL DISTRIBUTION WIDTH 16.2 % (11.5-14.0); WHITE BLOOD COUNT 28.4 10^3/uL (4.0-10.5)
[2016-05-06] MEDS: BUDESONIDE/FORMOTEROL 80-4.5 MCG 60 PUFF/6.9 GM MDI IH SCH ×2 (09:20→17:27)
[2016-05-06] MEDS: NYSTATIN/DEXAMETH/DIPHEN SUSP 120 ML PO SCH ×4 (09:20→21:44)
[2016-05-06 09:40] LABS: BAND NEUTROPHILS % (MANUAL) 1 % (3-5); BASOPHILS % (MANUAL) 0 % (0-2); EOSINOPHILS % (MANUAL) 0 % (0-6); LYMPHOCYTES % (MANUAL) 12 % (13-45); TOTAL CELLS COUNTED 100
[2016-05-06 09:41] LABS: ANISOCYTOSIS 1+; OVALOCYTES SLIGHT; POIKILOCYTOSIS 1+; TEAR DROP CELLS SLIGHT; TOXIC GRANULATION 1+
[2016-05-06 09:45] LABS: ANION GAP 5 (5-19); BLOOD UREA NITROGEN 19 mg/dL (7-20); CARBON DIOXIDE 33 mmol/L (22-30); CHLORIDE 98 mmol/L (98-107); CREATININE RESULT 0.49 mg/dL (0.52-1.25); GLUCOSE 126 mg/dL (75-110); POTASSIUM 4.3 mmol/L (3.6-5.0); SODIUM 136.1 mmol/L (137-145)
[2016-05-06] MEDS: NICOTINE 14 MG/24 HR PATCH.TD24 TD SCH (12:16)
[2016-05-06] MEDS: RIVAROXABAN 10 MG TABLET PO SCH (17:27)
--- NOTE | 2016-05-06 18:06 | PDOC PROGRESS REPORT ---
Subjective Progress Note for:: 05/06/16 Subjective:: Patient is doing very well she has minimal shortness of breath And decreased wheezing Feels much better She noticed a rash on her lower back; the rash will be describing the addendum to this note Physical Exam Vital Signs: Temp Pulse Resp BP Pulse Ox 98.2 F 75 20 122/66 100 05/06/16 15:42 05/06/16 16:14 05/06/16 16:14 05/06/16 15:42 05/06/16 16:14 Intake & Output 05/05/16 05/06/16 05/07/16 00:59 00:59 00:59 Intake Total 3005 1835 405 Output Total 1400 5000 1200 Balance 9229 -3263 -101 Weight 98 kg 98.7 kg 98.6 kg General appearance: PRESENT: no acute distress Head exam: PRESENT: atraumatic, normocephalic Eye exam: PRESENT: conjunctiva pink, EOMI, PERRLA. ABSENT: scleral icterus Neck exam: ABSENT: carotid bruit, JVD, lymphadenopathy, thyromegaly Respiratory exam: PRESENT: decreased breath sounds, wheezes. ABSENT: accessory muscle use Cardiovascular exam: PRESENT: RRR. ABSENT: diastolic murmur, rubs, systolic murmur GI/Abdominal exam: PRESENT: normal bowel sounds, soft. ABSENT: distended, guarding, mass, organolmegaly, rebound, tenderness Extremities exam: PRESENT: full ROM. ABSENT: calf tenderness, clubbing, pedal edema Neurological exam: PRESENT: alert, awake, oriented to person, oriented to place , oriented to time, oriented to situation, CN II-XII grossly intact. ABSENT: motor sensory deficit Results Laboratory Results: 05/06/16 09:02 05/06/16 09:02 05/06/16 05/06/16 09:02 09:02 WBC 28.4 H RBC 4.10 Hgb 11.5 L Hct 36.4 MCV 89 MCH 28.1 MCHC 31.7 L RDW 16.2 H Plt Count 216 Seg Neutrophils % Not Reportable Lymphocytes % Not Reportable Monocytes % Not Reportable Eosinophils % Not Reportable Basophils % Not Reportable Absolute Neutrophils Not Reportable Absolute Lymphocytes Not Reportable Absolute Monocytes Not Reportable Absolute Eosinophils Not Reportable Absolute Basophils Not Reportable Sodium 136.1 L Potassium 4.3 Chloride 98 Carbon Dioxide 33 H Anion Gap 5 BUN 19 Creatinine 0.49 L Est GFR ( Amer) > 60 Est GFR (Non-Af Amer) > 60 Glucose 126 H Calcium 8.0 L Impressions: Chest X-Ray 04/27/16 05:17 IMPRESSION: Upper lobes are hyperinflated and hyperlucent from obstructive disease. There is interstitial infiltrate in the right and left lower lung, which may reflect a mixture of alveolar and interstitial edema superimposed on obstructive disease. Atypical pneumonia could not be excluded. Chest/Abdomen CTA 05/01/16 00:00 IMPRESSION: No evidence for pulmonary embolic disease. Patchy densities are identified in the right lung most consistent with atelectatic changes although I cannot exclude minimal infiltrates. The left lung is clear. Other findings as noted above Assessment & Plan - Diagnosis (1) Pneumonia Qualifiers: Pneumonia type: due to unspecified organism Laterality: unspecified laterality Lung location: unspecified part of lung Qualified Code(s) : J18.9 - Pneumonia, unspecified organism Is this a current diagnosis for this admission?: Yes (2) Respiratory failure Qualifiers: Chronicity: acute on chronic Is this a current diagnosis for this admission?: Yes (3) COPD exacerbation Is this a current diagnosis for this admission?: Yes (4) Full code status Is this a current diagnosis for this admission?: Yes (5) Chronic atrial fibrillation Is this a current diagnosis for this admission?: Yes (6) Leukocytosis, unspecified Qualifiers: Leukocytosis type: leukemoid reaction Qualified Code(s): D72.823 - Leukemoid reaction Is this a current diagnosis for this admission?: Yes - Time Time Spent with patient: We will continue the present management; continue to taper steroids Discharge the patient in a.m.if she will remain stable Time Spent with patient: 15-24 minutes
[2016-05-06] MEDS: VALACYCLOVIR HCL 500 MG TABLET PO SCH (21:44)
[2016-05-06] MEDS: ROPINIROLE HCL 1 MG TABLET PO SCH (21:44)
[2016-05-07] MEDS: ALBUTEROL SULFATE 0.083% NEB 2.5 MG/3 ML AMPUL NEB SCH ×2 (00:17→08:39)
[2016-05-07] MEDS: CALCIUM CARBONATE 500 MG TAB.CHEW PO SCH ×2 (03:05→10:06)
[2016-05-07 05:48] LABS: HEMATOCRIT 36.7 % (36.0-47.0); HEMOGLOBIN 11.4 g/dL (12.0-15.5); HGB HCT DIFFERENCE -2.5; MEAN CORPUSCULAR HEMOGLOBIN 27.5 pg (27.0-33.4); MEAN CORPUSCULAR HGB CONC 31.2 g/dL (32.0-36.0); MEAN CORPUSCULAR VOLUME 88 fl (80-97); RED BLOOD COUNT 4.16 10^6/uL (3.72-5.28); RED CELL DISTRIBUTION WIDTH 16.2 % (11.5-14.0); WHITE BLOOD COUNT 27.1 10^3/uL (4.0-10.5)
[2016-05-07] MEDS: HYDROCODONE BIT/HOMATROPINE 5-1.5 MG TABLET PO SCH (05:56)
[2016-05-07] MEDS: LANSOPRAZOLE 30 MG TAB.RAP.DR PO SCH (05:56)
[2016-05-07] MEDS: VALACYCLOVIR HCL 500 MG TABLET PO SCH (05:57)
[2016-05-07 06:06] LABS: BAND NEUTROPHILS % (MANUAL) 1 % (3-5); BASOPHILS % (MANUAL) 0 % (0-2); EOSINOPHILS % (MANUAL) 2 % (0-6); LYMPHOCYTES % (MANUAL) 10 % (13-45); TOTAL CELLS COUNTED 100
[2016-05-07 06:07] LABS: ANISOCYTOSIS 1+; OVALOCYTES SLIGHT; POIKILOCYTOSIS SLIGHT; TOXIC GRANULATION SLIGHT
--- NOTE | 2016-05-07 09:53 | PDOC DISCHARGE SUMMARY ---
General - Admit/Disc Date/PCP Admission Date/Primary Care Provider: 04/27/16 10:06 AGUSTO TRINH, HEMATOLOGY DR HERNANDEZ Discharge Date: 05/07/16 - Discharge Diagnosis (1) Pneumonia Is this a current diagnosis for this admission?: YesSummary: Patient was treated with broad-spectrum antibiotics At time of discharge she has no fever A chest x-ray does not show any infiltrate (2) Respiratory failure Is this a current diagnosis for this admission?: YesSummary: Patient was admitted with hypoxemic respiratory failure Secondary to COPD exacerbation and pneumonia She was placed on BiPAP support on admission and then was on supplemental O2 patient's O2 requirements will be evaluated prior to discharge. (3) COPD exacerbation Is this a current diagnosis for this admission?: Yes (4) Full code status Is this a current diagnosis for this admission?: Yes (5) Chronic atrial fibrillation Is this a current diagnosis for this admission?: YesSummary: Chronic atrial fibrillation rate controlled and anticoagulated Cardiac status was stable during her admission (6) Leukocytosis, unspecified Is this a current diagnosis for this admission?: YesSummary: Patient was evaluated by hematology The white blood cell count is between 25,000 and 30,000 Workup is in progress, and patient is to follow-up as an outpatient with Dr. Hernandez (7) Herpes zoster Is this a current diagnosis for this admission?: YesSummary: patient developed typical rash on her left buttock Valtrex 1 g by mouth 3 times a day was initiated - Additional Information Resuscitation Status: Full Code Discharge Diet: As Tolerated Discharge Activity: Activity As Tolerated Home Medications: Albuterol Sulfate [Albuterol Sulfate 2.5mg/3 mL] 1 vial NEB Q4 04/27/16 Albuterol Sulfate [Ventolin Hfa] 1 puff IH Q4 04/27/16 Benazepril HCl [Lotensin 20 mg Tablet] 20 mg PO DAILY 04/27/16 Budesonide/Formoterol Fumarate [Symbicort HFA 80-4.5 mcg Inhaler 6.9 gm] 2 puff IH BID 04/27/16 Buspirone HCl [Buspar 5 mg Tablet] 5 mg PO BID 04/27/16 Citalopram Hydrobromide [Celexa 20 mg Tablet] 20 mg PO QHS 04/27/16 Citalopram Hydrobromide [Celexa 40 mg Tablet] 40 mg PO DAILY 04/27/16 Diltiazem HCl [Diltiazem ER] 180 mg PO BID 04/27/16 Levothyroxine Sodium [Synthroid 0.112 mg Tablet] 1 tab PO DAILY 04/27/16 Montelukast Sodium [Singulair 10 mg Tablet] 10 mg PO DAILY 04/27/16 Rivaroxaban [Xarelto] 20 mg PO WSUPPER 04/27/16 Ropinirole HCl 1 mg PO QHS 04/27/16 Tiotropium [place] [Spiriva Handihaler 18 mcg/dose (30 Dose)] 1 cap IH DAILY 08/08 Valacyclovir HCl [Valtrex] 1,000 mg PO TID #21 tablet 05/07/16 History of Present Illness Patient complains of: increasing shortness of breath History of Present Illness: LEVI GIBBONS is a 66 year old female presents to the emergency department complaining of progressively worsening cough and shortness of breath over approximately the last 2 weeks. Patient reports history of COPD and states cough has become increasingly productive with green sputum. Reports associated chills with unmeasured temperature at home. States has been using home albuterol inhaler with minimal relief. Denies chest pain or hemoptysis. In the ED patient was diagnosed of COPD exacerbation and pneumonia She was quite dyspneic and was placed on BiPAP support She was subsequently admitted under hospitalist service to an IMCU unit Hospital Course Hospital Course: Patient was admitted with acute hypoxemic respiratory failure secondary to COPD exacerbation CTA of the chest was negative for PE Patient was treated with steroids nebs antibiotics Patient was found to have a very high white blood cell count, and hematology consult was obtained prior to discharge she developed herpes zoster and antiviral treatment was initiated patient did not need supplemental O2 at home at discharge O2 sat was 95% at rest and with ambulation on room air Physical Exam Vital Signs: Temp Pulse Resp BP Pulse Ox 98.3 F 70 19 107/48 L 98 05/07/16 07:17 05/07/16 07:17 05/07/16 07:17 05/07/16 07:17 05/07/16 07:17 Intake & Output 05/06/16 05/07/16 05/08/16 00:59 00:59 00:59 Intake Total 1835 1215 180 Output Total 5000 2200 275 Balance -3165 -985 -95 Weight 98.7 kg 98.6 kg 98.4 kg General appearance: PRESENT: no acute distress, well-developed, well-nourished Head exam: PRESENT: atraumatic, normocephalic Eye exam: PRESENT: conjunctiva pink, EOMI, PERRLA. ABSENT: scleral icterus Ear exam: PRESENT: normal external ear exam Mouth exam: PRESENT: moist, tongue midline Neck exam: ABSENT: carotid bruit, JVD, lymphadenopathy, thyromegaly Respiratory exam: PRESENT: decreased breath sounds, wheezes. ABSENT: rales, rhonchi Cardiovascular exam: PRESENT: RRR. ABSENT: diastolic murmur, rubs, systolic murmur Pulses: PRESENT: normal dorsalis pedis pul Vascular exam: PRESENT: normal capillary refill GI/Abdominal exam: PRESENT: normal bowel sounds, soft. ABSENT: distended, guarding, mass, organolmegaly, rebound, tenderness Rectal exam: PRESENT: deferred Extremities exam: PRESENT: full ROM. ABSENT: calf tenderness, clubbing, pedal edema Neurological exam: PRESENT: alert, awake, oriented to person, oriented to place , oriented to time, oriented to situation, CN II-XII grossly intact. ABSENT: motor sensory deficit Psychiatric exam: PRESENT: appropriate affect, normal mood. ABSENT: homicidal ideation, suicidal ideation Skin exam: PRESENT: dry, intact, warm, other - Left buttock rash visualized Clustered vesicles containing cloudy fluid on erythematous base. ABSENT: cyanosis, rash Results Laboratory Results: 05/07/16 04:43 05/06/16 09:02 05/06/16 05/06/16 05/07/16 09:02 09:02 04:43 WBC 28.4 H 27.1 H RBC 4.10 4.16 Hgb 11.5 L 11.4 L Hct 36.4 36.7 MCV 89 88 MCH 28.1 27.5 MCHC 31.7 L 31.2 L RDW 16.2 H 16.2 H Plt Count 216 194 Seg Neutrophils % Not Reportable Lymphocytes % Not Reportable Monocytes % Not Reportable Eosinophils % Not Reportable Basophils % Not Reportable Absolute Neutrophils Not Reportable Absolute Lymphocytes Not Reportable Absolute Monocytes Not Reportable Absolute Eosinophils Not Reportable Absolute Basophils Not Reportable Sodium 136.1 L Potassium 4.3 Chloride 98 Carbon Dioxide 33 H Anion Gap 5 BUN 19 Creatinine 0.49 L Est GFR ( Amer) > 60 Est GFR (Non-Af Amer) > 60 Glucose 126 H Calcium 8.0 L 04/30/16 05/02/16 05/02/16 05:07 05:03 11:55 EBV Capsid Ag IgG Ab 494.0 H EBV Capsid Ag IgM Ab <36.0 EBV Early Antigen IgG <9.0 EBV Nuclear Ag IgG Ab 337.0 H Monotest NEGATIVE HIV 1&2 Antibody Influenza A (Rapid) NEGATIVE Influenza B (Rapid) NEGATIVE 05/05/16 05:15 EBV Capsid Ag IgG Ab EBV Capsid Ag IgM Ab EBV Early Antigen IgG EBV Nuclear Ag IgG Ab Monotest HIV 1&2 Antibody NEGATIVE Influenza A (Rapid) Influenza B (Rapid) 04/29/16 14:20 Gram Stain - Final Sputum Sputum Culture - Final NORMAL RISHI 04/27/16 09:20 Urine Culture - Final Clean Catch Midstream NO GROWTH 2 DAYS 04/27/16 06:54 Blood Culture - Final Blood NO GROWTH IN 5 DAYS 04/27/16 05:08 Blood Culture - Final Blood NO GROWTH IN 5 DAYS EKG Comments: SINUS TACHYCARDIA [SVBIG] . SUPRAVENTRICULAR BIGEMINY [AMI8] . CONSIDER ANTEROSEPTAL INFARCT Impressions: Chest X-Ray 04/27/16 05:17 IMPRESSION: Upper lobes are hyperinflated and hyperlucent from obstructive disease. There is interstitial infiltrate in the right and left lower lung, which may reflect a mixture of alveolar and interstitial edema superimposed on obstructive disease. Atypical pneumonia could not be excluded. Chest/Abdomen CTA 05/01/16 00:00 IMPRESSION: No evidence for pulmonary embolic disease. Patchy densities are identified in the right lung most consistent with atelectatic changes although I cannot exclude minimal infiltrates. The left lung is clear. Other findings as noted above Plan Discharge Plan: Follow-up with Dr. Trinh and Dr. Hernandez
[2016-05-07] MEDS: BUSPIRONE HCL 10 MG TABLET PO SCH (10:02)
[2016-05-07] MEDS: GUAIFENESIN 600 MG TABLET.SA PO SCH (10:02)
[2016-05-07] MEDS: DILTIAZEM HCL 180 MG CAPSULE.CR PO SCH (10:02)
[2016-05-07] MEDS: LEVOTHYROXINE SODIUM 0.112 MG TABLET PO SCH (10:02)
[2016-05-07] MEDS: CITALOPRAM HYDROBROMIDE 20 MG TABLET PO SCH (10:02)
[2016-05-07] MEDS: FLUCONAZOLE 100 MG TABLET PO SCH (10:03)
[2016-05-07] MEDS: TIOTROPIUM BROMIDE DPI 5 CAP/KIT (18 MCG/CAP) IH SCH (10:04)
[2016-05-07] MEDS: NYSTATIN/DEXAMETH/DIPHEN SUSP 120 ML PO SCH (10:05)
[2016-05-07] MEDS: BUDESONIDE/FORMOTEROL 80-4.5 MCG 60 PUFF/6.9 GM MDI IH SCH (10:05)
[2016-05-07] MEDS: NICOTINE 14 MG/24 HR PATCH.TD24 TD SCH (10:06)
[2016-05-07] MEDS: BENAZEPRIL HCL 20 MG TABLET PO SCH (10:06)
[2016-05-07] MEDS: DOCUSATE SODIUM 100 MG CAPSULE PO SCH (10:06)
[2016-05-07 10:39] VITALS: BP 126/68
== END 2016-05-07 11:45 | disposition home or self-care (01) | DRG 190 ==
LOC: ER 04:53 → EH 07:45 → UNDOADMIN 07:45 → EH 10:06 → 3S 10:55
PROVIDERS: ADMIT Emergency Medicine; ATTEND Emergency Medicine
DX: J44.0 Chronic obstructive pulmonary disease with (acute) lower respiratory infection (principal); J12.9 Viral pneumonia, unspecified; J96.21 Acute and chronic respiratory failure with hypoxia; J44.1 Chronic obstructive pulmonary disease with (acute) exacerbation; E03.9 Hypothyroidism, unspecified; K21.9 Gastro-esophageal reflux disease without esophagitis; I48.2 Chronic atrial fibrillation; K13.21 Leukoplakia of oral mucosa, including tongue; I10 Essential (primary) hypertension; F32.9 Major depressive disorder, single episode, unspecified; Z86.711 Personal history of pulmonary embolism; Z79.01 Long term (current) use of anticoagulants; Z79.51 Long term (current) use of inhaled steroids; Z79.899 Other long term (current) drug therapy; Z87.891 Personal history of nicotine dependence
CPT/HCPCS: 36415; 71010; 71275; 80048; 80053; 81001; 81206; 81207; 81270; 82803; 83605; 83615; 83880; 84443; 85025; 85610; 85730; 86140; 86256; 86308; 86663; 86664; 86665; 86701; 87040; 87070; 87086; 87205; 87804; 88184; 88185; 93005; 93010; 94640; 94660; 96365; 96367; 96375; 99291; J0692; J0696; J1650; J1956; J2920; J2930; J3475; J3490; J7030; J7620; S0028

== ENCOUNTER 2016-05-29 21:38 | Inpatient (IN) | payer MEDICARE, BC ==
[2016-05-29] MEDS ORDERED: IPRATROPIUM/ALBUTEROL 0.5-2.5 MG/3 ML AMPUL NEB ONE ×2 (21:55→23:15)
[2016-05-29] MEDS ORDERED: PREDNISONE 20 MG TABLET PO ONE (21:55)
[2016-05-29] MEDS ORDERED: ALBUTEROL SULFATE 0.083% NEB 2.5 MG/3 ML AMPUL NEB SCH (22:10)
[2016-05-29] MEDS ORDERED: NORMAL SALINE 1000 ML 500 ML IV ONE (23:15)
--- NOTE | 2016-05-29 23:17 | ER Document Report ---
ED General - General Chief Complaint: Breathing Difficulty Stated Complaint: DIFFICULTY BREATHING Notes: Patient is a pleasant 66-year-old female presents with complaint of difficulty breathing. She did this she feels dizzy when she coughs. She has a history of COPD. She quit smoking 2 months ago. No fevers. We'll breathing is gradually gotten worse today. On arrival in triage blood pressure was low. She is brought back to ER. She was given the first DuoNeb treatment which she says helped slightly. She is not on home oxygen. She never been intubated. She has been on BiPAP in the past. She has been admitted for COPD in the past. Patient is on blood thinning medications due to history of atrial fibrillation. She was discharged from the hospital one month ago due to a COPD exacerbation. TRAVEL OUTSIDE OF THE [place] IN LAST 30 DAYS: No - Related Data Allergies/Adverse Reactions: hydromorphone HCl [From Dilaudid] Allergy (Intermediate, Verified 04/27/16 05:05 ) Past Medical History - Social History Smoking Status: Former Smoker Frequency of alcohol use: None Drug Abuse: None Family History: Reviewed & Not Pertinent Patient has suicidal ideation: No Patient has homicidal ideation: No - Past Medical History Cardiac Medical History: Reports: Hx Atrial Fibrillation, Hx Hypertension, Hx Pulmonary Embolism - 30yrs ago Denies: Hx Congestive Heart Failure, Hx Coronary Artery Disease, Hx Heart Attack, Hx Hypercholesterolemia, Hx Peripheral Vascular Disease, Hx Heart Murmur Pulmonary Medical History: Reports: Hx Asthma, Hx Bronchitis, Hx COPD, Hx Pneumonia, Hx Tuberculosis Denies: Hx Respiratory Failure, Hx Sleep Apnea Endocrine Medical History: Reports: Hx Hypothyroidism. Denies: Hx Graves' Disease, Hx Hyperthyroidism Renal/ Medical History: Denies: Hx End Stage Renal Disease, Hx Kidney Stones, Hx Peritoneal Dialysis Malignancy Medical History: Denies: Hx Lung Cancer GI Medical History: Reports: Hx Gastroesophageal Reflux Disease Musculoskeltal Medical History: Reports Hx Arthritis, Denies Hx Fibromyalgia, Denies Hx Muscular Dystrophy Psychiatric Medical History: Reports: Hx Depression Denies: Hx Bipolar Disorder, Hx Post Traumatic Stress Disorder, Hx Schizophrenia Traumatic Medical History: Denies: Hx Fractures Past Surgical History: Reports: Hx Hysterectomy, Hx Orthopedic Surgery - CARPAL TUNNEL RELEASE, GANGLION CYST REMOVAL, TRIGGER FINGER RELEASE, Hx Tubal Ligation , Hx Urinary Tract Surgery. Denies: Hx Appendectomy, Hx Bowel Surgery, Hx Section, Hx Cholecystectomy, Hx Coronary Artery Bypass Graft, Hx Gastric Bypass Surgery, Hx Herniorrhaphy, Hx Mastectomy, Hx Pacemaker, Hx Tonsillectomy - Immunizations Hx Diphtheria, Pertussis, Tetanus Vaccination: Yes Hx Pneumococcal Vaccination: 02/22/10 Review of Systems - Review of Systems Notes: My Normal Review Basic REVIEW OF SYSTEMS: CONSTITUTIONAL : Denies fever, chills, or sweats. Denies recent illness. EENT: Denies eye, ear, throat, or mouth pain or symptoms. Denies nasal or sinus congestion. CARDIOVASCULAR: Denies chest pain. RESPIRATORY: Difficulty breathing. Cough. GASTROINTESTINAL: Denies abdominal pain. Denies nausea, vomiting, or diarrhea. Denies constipation. Last BM: : MUSCULOSKELETAL: Denies neck or back pain or joint pain or swelling. SKIN: Denies rash or skin lesions. NEUROLOGICAL: Denies altered mental status or loss of consciousness. Denies weakness or paralysis or loss of use of either side. Denies problems with gait or speech. Denies sensory or motor loss. ALL OTHER SYSTEMS REVIEWED AND NEGATIVE. Physical Exam - Vital signs Vitals: Temp Pulse Resp BP Pulse Ox 97.2 F 77 30 H 80/52 L 96 05/29/16 21:51 05/29/16 21:51 05/29/16 21:51 05/29/16 21:51 05/29/16 21:51 - Notes Notes: General Appearance: Well nourished, alert, cooperative, moderate acute distress , no obvious discomfort. Vitals: reviewed, See vital signs table. Head: no swelling or tenderness to the head Eyes: PERRL, EOMI, Conjuctiva clear Mouth: No decreasd moisture Neck: Supple, no neck tenderness, No thyromegaly Lungs: Diffuse wheezing. Some rhonchi. Fair air exchange. Increase accessory muscle use. Some tachypnea. Heart: Normal rate, Regular rythm, No murmur, no rub Abdomen: Normal BS, soft, No rigidity, No abdominal tenderness, No guarding, no rebound, no abdominal masses, no organomegaly Extremities: strength 5/5 in all extremities, good pulses in all extremities, no swelling or tenderness in the extremities, no edema. Skin: warm, dry, appropriate color, no rash Neuro: speech clear, oriented x 3, normal affect, responds appropriately to questions. Course - Re-evaluation Re-evalutation: 05/30/16 00:37 Patient's repeat blood pressures in the 90s systolically. We'll give her some or IV fluids. She says her breathing is improved with BiPAP. She still has some tachypnea but is not working as hard as she originally was. She is receiving magnesium. This may be why her blood pressures start to drop again but it appears to be helping her breathing as well. - Vital Signs Vital signs: Temp Pulse Resp BP Pulse Ox 97.2 F 77 25 H 80/52 L 100 05/29/16 21:51 05/29/16 21:51 05/29/16 23:29 05/29/16 21:51 05/29/16 23:29 - Laboratory Result Diagrams: 05/30/16 00:00 05/30/16 00:00 Laboratory results interpreted by me: 05/30/16 05/30/16 05/30/16 00:00 00:00 00:15 WBC 11.8 H RDW 18.4 H Seg Neutrophils % 82.3 H Lymphocytes % 11.4 L Absolute Neutrophils 9.7 H VBG pH 7.52 H VBG pCO2 29.2 L Sodium 135.8 L Creatinine 1.34 H Est GFR ( Amer) 48 L Est GFR (Non-Af Amer) 39 L Glucose 134 H Alkaline Phosphatase 135 H - EKG Interpretation by Me Additional EKG results interpreted by me: 05/30/16 01:06 EKG is reviewed and interpreted by me. EKG shows normal sinus rhythm with a rate of [address] segment elevation or depression. No ischemic T wave inversions. OR interval, QRS duration, QTC intervals are within normal range. Old EKG for comparison is from 04/27/2016. - Transfer of Care Notes: 05/30/16 01:07 After repositioning given fluid bolus patient's blood pressure is now systolically in the 100s. She looks and feels improved on the BiPAP. She still has some wheezing but it's much improved in comparison to her initial lung auscultation. Her venous blood cast does show a respiratory alkalosis which is suspect is because the patient had was taking such rapid shallow breaths when she first arrived. She has no chest pain. EKG is normal. At this time I feel she is appropriate for admission. I did speak with Dr. Storm, hospitalist, who agrees to admit the patient. Dictation of this chart was performed using voice recognition software; therefore, there may be some unintended grammatical errors. Discharge - Discharge Clinical Impression: COPD exacerbation Condition: Stable Disposition: ADMITTED INPATIENT Admitting Provider: Hospitalist Unit Admitted: [facility]
[2016-05-29] MEDS: MAGNESIUM SULFATE/D5W 100 ML IV SCH (23:28)
[2016-05-30] MEDS: MAGNESIUM SULFATE/D5W 100 ML IV SCH ×2 (00:09→00:57)
[2016-05-30 00:16] LABS: ABSOLUTE LYMPHOCYTES (AUTO) 1.3 10^3/uL (0.5-4.7); ABSOLUTE MONOCYTES (AUTO) 0.7 10^3/uL (0.1-1.4); ABSOLUTE NEUT (AUTO) 9.7 10^3/uL (1.7-8.2); BASOPHILS % (AUTO) 0.4 % (0-2); EOSINOPHILS % (AUTO) 0.1 % (0-6); HEMATOCRIT 37.2 % (36.0-47.0); HEMOGLOBIN 12.2 g/dL (12.0-15.5); HGB HCT DIFFERENCE -0.6; LYMPHOCYTES % (AUTO) 11.4 % (13-45); MEAN CORPUSCULAR HEMOGLOBIN 28.1 pg (27.0-33.4); MEAN CORPUSCULAR HGB CONC 32.7 g/dL (32.0-36.0); MEAN CORPUSCULAR VOLUME 86 fl (80-97); MONOCYTES % (AUTO) 5.8 % (3-13); RED BLOOD COUNT 4.32 10^6/uL (3.72-5.28); RED CELL DISTRIBUTION WIDTH 18.4 % (11.5-14.0); SEGMENTED NEUTROPHILS % (AUTO) 82.3 % (42-78); WHITE BLOOD COUNT 11.8 10^3/uL (4.0-10.5)
[2016-05-30 00:30] LABS: ALANINE AMINOTRANSFERASE 36 U/L (9-52); ALBUMIN 3.6 g/dL (3.5-5.0); ALKALINE PHOSPHATASE 135 U/L (38-126); ANION GAP 11 (5-19); ASPARTATE AMINO TRANSFERASE 30 U/L (14-36); BILIRUBIN,DIRECT 0.2 mg/dL (0.0-0.4); BILIRUBIN,TOTAL 0.5 mg/dL (0.2-1.3); BLOOD UREA NITROGEN 18 mg/dL (7-20); CALCIUM 8.7 mg/dL (8.4-10.2); CARBON DIOXIDE 26 mmol/L (22-30); CHLORIDE 99 mmol/L (98-107); CREATININE RESULT 1.34 mg/dL (0.52-1.25); GLUCOSE 134 mg/dL (75-110); SODIUM 135.8 mmol/L (137-145); TOTAL PROTEIN 6.6 g/dL (6.3-8.2)
[2016-05-30] MEDS ORDERED: NORMAL SALINE 1000 ML 1,000 ML IV ONE (00:36)
[2016-05-30 00:39] LABS: VENOUS BLOOD BASE EXCESS 1.5 mmol/L; VENOUS BLOOD HCO3 23.5 mmol/L (20-32); VENOUS BLOOD PCO2 29.2 mmHg (35-63); VENOUS BLOOD PH 7.52 (7.30-7.42)
[2016-05-30] MEDS ORDERED: ROPINIROLE HCL 1 MG TABLET PO ONE (01:32)
[2016-05-30] MEDS ORDERED: ROPINIROLE HCL 1 MG TABLET ONE (01:42)
[2016-05-30] MEDS ORDERED: DEXTROSE 40% GEL 15 GM TUBE PO PRN ×2 (02:35)
[2016-05-30] MEDS ORDERED: DEXTROSE 50%-WATER 25 GM/50 ML DISP.SYRIN IV PRN ×2 (02:35)
[2016-05-30] MEDS ORDERED: GLUCAGON,HUMAN RECOMB 1 MG INJ IM PRN (02:35)
[2016-05-30] MEDS ORDERED: ACETAMINOPHEN 325 MG TABLET PO PRN (02:41)
[2016-05-30] MEDS ORDERED: ALBUTEROL SULFATE 0.083% NEB 2.5 MG/3 ML AMPUL NEB PRN (02:41)
[2016-05-30] MEDS ORDERED: GUAIFENESIN SYRP 200 MG/10 ML UDC PO PRN (02:41)
[2016-05-30] MEDS ORDERED: NORMAL SALINE 1000 ML 1,000 ML IV PRN (02:44)
[2016-05-30] MEDS ORDERED: METHYLPREDNISOLONE INJ 125 MG/2 ML SDV IV SCH (02:45)
[2016-05-30] MEDS ORDERED: PHARMACY COMMUNICATION ORDER MC SCH (02:45)
[2016-05-30 03:00] LABS: ADD ON TESTING BLD IN LAB ACKNOWLEDGE
--- NOTE | 2016-05-30 03:00 | PDOC H&P ---
History of Present Illness Admission Date/PCP: 05/30/16 01:13 AGUSTO AGRAWAL DO Patient complains of: SOB History of Present Illness: LEVI GIBBONS is a 66 year old female, with underlying nonhome O2 dependent COPD , having stopped smoking 2 months ago, who presents to the emergency room for evaluation of above complaint. Patient has been discussed with emergency room physician who evaluated the patient. She describes a one-week history of slowly progressive difficulty breathing, in particular with much of any exertion. Has been particularly worse over the last 24 hours. Intermittent sensation of being "hot and cold." Nausea but no vomiting. Decreased by mouth intake over the last 2 or 3 days. However, no diarrhea or dysuria, chest or abdominal pain. No prior intubation. No sleep apnea. Hospitalized on our service the sixth through the 16 of last month with final diagnoses including respiratory failure secondary to combination of COPD exacerbation and pneumonia. Also noted to have leukocytosis, with current workup underway per Dr. Winkler of hematology. History and physical and discharge summary have been reviewed. Was mildly hypotensive upon initial arrival to the emergency room, but has responded nicely to IV fluids. Currently resting quietly, stating she is breathing a bit more comfortably, but still somewhat short of breath. BIPAP started by ER MD. Laboratory results are listed in [employer] and are reviewed. X-ray summary results are listed below, with full report(s) reviewed. . EKG reviewed. Social history/personal habits: . 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 No alcohol or illicit drug use. No tobacco use for the past 2 months. Allergies/adverse reactions are listed in [employer] and are reviewed. Home medications Home medications initially autopopulated into [employer] may not accurately reflect patient's true medications, dosages, and/or frequencies. 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 Unfortunately, patient uncertain of medications/dosages/frequencies. REVIEW OF SYSTEMS: Constitutional: See history and present illness. Eyes: Wears glasses. ENT: No swallowing problems or complaints. No hearing problems or complaints. Pulmonary: See history and present illness. Cardiovascular: No current complaints, including chest pain. Gastrointestinal: See history and present illness. Skin: No current complaints, including rashes. Hematologic: Easy bruising. Neurologic: No current complaints, including numbness or tingling. Psychiatric: Mild depression; denies suicidal or homicidal ideation. Endocrine: No current complaints, including polyuria. Genitourinary: No current complaints, including dysuria. PHYSICAL EXAMINATION: 5 feet 5 inches tall. 90.7 kg. BMI 33.3 kg/m. Blood pressure 113/50. Pulse 73 and regular. 100% saturation on BiPAP 12/6, 30% FiO2. Respirations are 24, with patient making mild use of her accessory respiratory muscles. Temperature 97.6. Daughter is present at her side; patient approves. Obese otherwise well-developed female who appears to be in some mild respiratory distress. Mildly anxious, without agitation. Pleasant awake alert and cooperative otherwise. Skin is warm and dry. No grossly obvious evidence of rash in areas of skin examined. No subcutaneous nodules palpated. ENT: Hearing grossly normal to normal conversation. Tongue midline on protrusion pink and slightly tacky. Exam also limited by BIPAP device with attaching straps. Eyes: No scleral icterus. Pupils equal and reactive to light at 4 mm. [place] conjunctivae. Neck is supple and nontender to gentle active range of motion and palpation. Midline trachea. No palpable thyroid nodule mass enlargement or tenderness. Lymphatic: No palpable cervical or clavicular nodes. Neck and lymphatic exams limited by patient body habitus. Exam also limited by BIPAP device with attaching straps. Psychiatric: Reasonable insight into acute and chronic medical issues. Oriented to time location and why here. Lungs: Auscultation reveals equal breath sounds bilaterally. No use of accessory respiratory muscles. Slightly coarse breath sounds diffusely, with mild brief early expiratory wheezing Cardiovascular: Heart regular rate and rhythm, without gallop murmur or rub. No abdominal aortic bruits. No ankle or pedal edema. Faintly palpable dorsalis pedis pulses. Carotid bruits difficult to detect due to airway sounds from BIPAP device. Abdomen:soft, obese, distended nontender with positive bowel sounds. Unable to adequately evaluate abdomen for masses or organomegaly due to Body habitus Extremities: Feet are warm and dry. No calf tenderness to compression. No grossly obvious visual evidence of calf swelling. Gentle manipulation of lower extremities fails to reveal any obvious evidence of injury or instability to knees hips or ankles. Neurologic: Moves upper extremities grossly normally. Patellar reflexes absent. Absent Babinski. Light touch is intact at feet. Dorsiflexion and plantarflexion of feet 5 / 5 and symmetric. Past Medical History Cardiac Medical History: Reports: Atrial Fibrillation, Hypertension, Pulmonary Embolism - 30yrs ago Denies: Congestive Heart Failure, Coronary Artery Disease, Myocardial Infarction, Hyperlipidema, Peripheral Vascular Disease, Heart Murmur Pulmonary Medical History: Reports: Asthma, Bronchitis, Chronic Obstructive Pulmonary Disease (COPD), Pneumonia, Tuberculosis Denies: Respiratory Failure, Sleep Apnea Neurological Medical History: Denies: Hemorrhagic CVA, Ischemic CVA, Seizures Endocrine Medical History: Reports: Hypothyroidism Denies: Diabetes Mellitus Type 1, Diabetes Mellitus Type 2, Hyperthyroidism Renal/ Medical History: Denies: End Stage Renal Disease Malignancy Medical History: Denies: Lung Cancer GI Medical History: Reports: Gastroesophageal Reflux Disease Musculoskeltal Medical History: Reports: Arthritis Denies: Fibromyalgia Psychiatric Medical History: Reports: Depression Denies: Alcohol Dependency, Bipolar Disorder, Post Traumatic Stress Disorder , Substance Abuse, Tobacco Dependency Hematology: Reports: Other - Easy bruising Infectious Medical History: Denies: Clostridium Difficile, Hepatitis B, Hepatitis C, Methicillin- Resistant Staph Aureus Past Surgical History Past Surgical History: Reports: Hysterectomy, Orthopedic Surgery - CARPAL TUNNEL RELEASE, GANGLION CYST REMOVAL, TRIGGER FINGER RELEASE, Tubal Ligation Denies: Amputation, Appendectomy, Section, Cholecystectomy, Coronary Artery Bypass Graft, Gastric Bypass Surgery, Herniorrhaphy, Mastectomy , Pacemaker, Tonsillectomy Social History Information Source: Patient, Emergency Med Personnel, [facility] Records Lives with: Spouse/Significant other Smoking Status: Former Smoker Frequency of Alcohol Use: None Hx Recreational Drug Use: No Hx Prescription Drug Abuse: No - Advance Directive Resuscitation Status: Full Code Surrogate healthcare decision maker:: Family History Family History: Reviewed & Not Pertinent Parental Family History Reviewed: Yes Children Family History Reviewed: Yes Sibling(s) Family History Reviewed.: Yes Medication/Allergy Home Medications: RX: Benazepril HCl [Lotensin 20 mg Tablet] 20 mg PO DAILY 05/30/16 RX: Budesonide/Formoterol Fumarate [Symbicort HFA 160-4.5 mcg Inhaler 6 gm] 2 puff IH BID 05/30/16 RX: Buspirone HCl [Buspar 5 mg Tablet] 5 mg PO BID 05/30/16 RX: Carbidopa/Levodopa [Carbidopa-Levo ER 50-200 Tab] 1 tab PO QHS 05/30/16 RX: Citalopram Hydrobromide [Celexa 20 mg Tablet] 20 mg PO DAILY 05/30/16 RX: Citalopram Hydrobromide [Celexa 40 mg Tablet] 40 mg PO DAILY 05/30/16 RX: Diltiazem HCl [Diltiazem 24Hr ER] 180 mg PO BID 05/30/16 RX: Levothyroxine Sodium [Synthroid 0.112 mg Tablet] 0.112 mcg PO DAILY RX: Meclizine HCl [Antivert 25 mg Tablet] 25 mg PO TIDP PRN 05/30/16 RX: Methylphenidate HCl [Ritalin] 20 mg PO TID 05/30/16 RX: Montelukast Sodium [Singulair 10 mg Tablet] 10 mg PO DAILY 05/30/16 RX: Rivaroxaban [Xarelto] 20 mg PO QPM 05/30/16 RX: Ropinirole HCl 1 mg PO QHS 05/30/16 RX: Valacyclovir HCl [Valtrex] 1,000 mg PO TID 05/30/16 Prednisone [Deltasone 10 mg Tablet] 10 mg PO ASDIR PRN #21 tablet 06/05/16 RX: Albuterol Sulfate [Ventolin 0.042% Neb 1.25 mg/3 mL Ampul] 1.25 mg NEB [id number] PRN #30 vial.neb 06/05/16 RX: Tiotropium Williams [Spiriva Handihaler 5 Cap/Kit (18 Mcg/Cap)] 1 cap IH DAILY kit 06/05/16 Allergies/Adverse Reactions: hydromorphone HCl [From Dilaudid] Allergy (Intermediate, Verified 04/27/16 05:05 ) Physical Exam Vital Signs: Temp Pulse Resp BP Pulse Ox 97.6 F 84 30 H 109/69 97 05/30/16 00:00 05/30/16 00:00 05/30/16 01:40 05/30/16 01:40 05/30/16 01:40 Results Impressions: Chest X-Ray 05/29/16 23:14 IMPRESSION: COPD. NO ACUTE RADIOGRAPHIC FINDING IN THE CHEST. INTERVAL RESOLUTION PREVIOUS IDENTIFIED AIRSPACE DISEASE. Assessment & Plan - Diagnosis (1) ARF (acute renal failure) Qualifiers: Acute renal failure type: unspecified Qualified Code(s): N17.9 - Acute kidney failure, unspecified Is this a current diagnosis for this admission?: YesPlan: Likely prerenal in nature, with little by mouth intake over the last 2 or 3 days. Follow-up chemistry. (2) Acute chronic obstructive pulmonary disease with respiratory failure Is this a current diagnosis for this admission?: YesPlan: Patient will be admitted under COPD exacerbation protocol. Incentive spirometry twice a day. Scheduled DuoNeb's. PRN albuterol nebs Solu-Medrol IV Pepcid for gastritis prophylaxis. Antibiotics will consist of intravenous Zithromax and cefepime. Pharmacy to assist with dosing.. I strongly encouraged patient to notify staff should patient feel that her breathing is worsening. Patient is a full code. I have strongly encouraged patient not to get out of bed without notifying staff , , to avoid a fall with injury. Knee high SCDs for DVT prophylaxis, ; with patient on systemic anticoagulation, no need for Lovenox or heparin at this point in time. Impression and plans were discussed with patient, and daughter, both of whom concur. Time spent in evaluation and management of patient: 62 critical care minutes. (3) COPD exacerbation Is this a current diagnosis for this admission?: Yes (4) Anticoagulated Is this a current diagnosis for this admission?: YesPlan: Resume home medications as appropriate once these have been determined and reviewed. (5) Chronic atrial fibrillation Is this a current diagnosis for this admission?: YesPlan: Hemodynamically stable.Resume home medications as appropriate once these have been determined and reviewed. - Inpatient Certification Based on my medical assessment, after consideration of the patient's comorbidities, presenting symptoms, or acuity I expect that the services needed warrant INPATIENT care.: Yes I certify that my determination is in accordance with my understanding of Medicare's requirements for reasonable and necessary INPATIENT services [42 CFR 412.3e].: Yes Medical Necessity: Need Close Monitoring Due to Risk of Patient Decompensation, Need For IV Fluids, Need For Continuous Telemetry Monitoring, Need for Nebulizer Therapy and Monitoring of Response, Need for IV Antibiotics, Risk of Complication if Not Cared For in Hospital, Risk of Diagnosis Which Will Require Inpatient Eval/Care/Monitoring Post Hospital Care: D/C or Transfer Summary
[2016-05-30 03:54] LABS: VENOUS BLOOD BASE EXCESS -0.8 mmol/L; VENOUS BLOOD HCO3 24.7 mmol/L (20-32); VENOUS BLOOD PCO2 44.6 mmHg (35-63); VENOUS BLOOD PH 7.36 (7.30-7.42)
[2016-05-30] MEDS ORDERED: AZITHROMYCIN INJ 500 MG VIAL IV PRN (03:58)
[2016-05-30] MEDS ORDERED: METHYLPREDNISOLONE INJ 125 MG/2 ML SDV IV ONE (04:00)
[2016-05-30] MEDS ORDERED: AZITHROMYCIN 500 MG in DEXTROSE 5%-WATER 250 ML IV SCH ×2 (04:00→06:00)
[2016-05-30] MEDS ORDERED: CEFEPIME INJ 1 GM VIAL IV PRN (04:03)
[2016-05-30 04:17] LABS: CREATINE KINASE MB 1.05 ng/mL (<4.55)
[2016-05-30 04:20] LABS: TROPONIN I < 0.012 ng/mL
[2016-05-30] MEDS ORDERED: AZITHROMYCIN INJ 500 MG VIAL IV ONE (04:54)
[2016-05-30] MEDS ORDERED: CEFEPIME 2 GM/D5W RTU 2 GM/50 ML RTUPB IV SCH (05:00)
--- NOTE | 2016-05-30 06:09 | EKG REPORT ---
SEVERITY:- NORMAL ECG - SINUS RHYTHM : Confirmed by: Shanna Grace 30-May-2016 06:09:24
[2016-05-30] MEDS ORDERED: PROMETHAZINE HCL INJ 25 MG/1 ML VIAL IV PRN (06:46)
[2016-05-30 07:05] LABS: VENOUS BLOOD BASE EXCESS -2.2 mmol/L; VENOUS BLOOD HCO3 22.3 mmol/L (20-32); VENOUS BLOOD PCO2 37.4 mmHg (35-63); VENOUS BLOOD PH 7.39 (7.30-7.42)
[2016-05-30 07:18] LABS: ANION GAP 12 (5-19); BLOOD UREA NITROGEN 13 mg/dL (7-20); CALCIUM 7.9 mg/dL (8.4-10.2); CARBON DIOXIDE 22 mmol/L (22-30); CHLORIDE 103 mmol/L (98-107); CREATININE RESULT 0.71 mg/dL (0.52-1.25); GLUCOSE 235 mg/dL (75-110); POTASSIUM 4.4 mmol/L (3.6-5.0); SODIUM 136.5 mmol/L (137-145)
[2016-05-30] MEDS: IPRATROPIUM/ALBUTEROL 0.5-2.5 MG/3 ML AMPUL NEB SCH ×3 (08:22→20:14)
[2016-05-30] MEDS: INSULIN LISPRO 100 UNIT/ML 3 ML VIAL SUBCUT PRN ×2 (08:37→13:02)
[2016-05-30] MEDS ORDERED: LEVOTHYROXINE SODIUM 0.112 MG TABLET PO ONE (09:00)
[2016-05-30] MEDS ORDERED: (PENDING PHARMACY ID) (Diltiazem Hcl [Diltiazem Er] 180 MG) PO SCH (10:00)
[2016-05-30] MEDS ORDERED: (PENDING PHARMACY ID) (Buspirone Hcl [Buspar 5 Mg Tablet] 5 MG) PO SCH (10:00)
[2016-05-30] MEDS ORDERED: (PENDING PHARMACY ID) (Citalopram Hydrobromide [Celexa 40 Mg Tablet] 40 MG) PO SCH (10:00)
[2016-05-30] MEDS ORDERED: HEPARIN SOD (PORCINE) 5,000 UNIT/ML 1 ML SYRINGE SUBCUT SCH (10:00)
[2016-05-30] MEDS: BENAZEPRIL HCL 20 MG TABLET PO SCH (10:11)
[2016-05-30] MEDS: MONTELUKAST SODIUM 10 MG TABLET PO SCH (10:11)
[2016-05-30] MEDS: DOCUSATE SODIUM 100 MG CAPSULE PO SCH ×2 (10:11→17:22)
[2016-05-30] MEDS: DILTIAZEM HCL 180 MG CAPSULE.CR PO SCH ×2 (10:11→21:32)
[2016-05-30] MEDS: CITALOPRAM HYDROBROMIDE 20 MG TABLET PO SCH ×2 (10:12→21:32)
[2016-05-30] MEDS: BUSPIRONE HCL 10 MG TABLET PO SCH ×2 (10:12→17:22)
[2016-05-30] MEDS: FAMOTIDINE INJ/PF 20 MG/2 ML SDV IV SCH ×2 (10:13→21:33)
[2016-05-30] MEDS: TIOTROPIUM BROMIDE DPI 5 CAP/KIT (18 MCG/CAP) IH SCH (13:01)
[2016-05-30] MEDS: BUDESONIDE/FORMOTEROL 80-4.5 MCG 60 PUFF/6.9 GM MDI IH SCH ×2 (13:01→17:26)
[2016-05-30] MEDS: METHYLPREDNISOLONE INJ 125 MG/2 ML SDV IV SCH ×2 (13:01→21:33)
[2016-05-30] MEDS: CEFEPIME HCL 2 GM in DEXTROSE 5%-WATER 100 ML IV SCH (17:22)
[2016-05-30] MEDS: RIVAROXABAN 10 MG TABLET PO SCH (17:24)
[2016-05-30] MEDS: ROPINIROLE HCL 1 MG TABLET PO SCH (21:32)
[2016-05-31] MEDS: METHYLPREDNISOLONE INJ 125 MG/2 ML SDV IV SCH (05:29)
[2016-05-31] MEDS: CEFEPIME HCL 2 GM in DEXTROSE 5%-WATER 100 ML IV SCH ×2 (05:29→17:17)
[2016-05-31 07:45] LABS: HEMOGLOBIN 10.4 g/dL (12.0-15.5); HGB HCT DIFFERENCE -0.8; MEAN CORPUSCULAR HEMOGLOBIN 28.2 pg (27.0-33.4); MEAN CORPUSCULAR HGB CONC 32.6 g/dL (32.0-36.0); MEAN CORPUSCULAR VOLUME 87 fl (80-97); RED CELL DISTRIBUTION WIDTH 18.5 % (11.5-14.0); WHITE BLOOD COUNT 20.1 10^3/uL (4.0-10.5)
[2016-05-31] MEDS: IPRATROPIUM/ALBUTEROL 0.5-2.5 MG/3 ML AMPUL NEB SCH ×3 (08:18→20:25)
[2016-05-31] MEDS ORDERED: MG TRISILICATE/ALH/NAHCO3/AA CHEWABLE TABLET PO PRN (08:51)
[2016-05-31] MEDS: MONTELUKAST SODIUM 10 MG TABLET PO SCH (09:42)
[2016-05-31] MEDS: DILTIAZEM HCL 180 MG CAPSULE.CR PO SCH ×2 (09:42→22:37)
[2016-05-31] MEDS: FAMOTIDINE 20 MG TABLET PO SCH ×2 (09:43→22:37)
[2016-05-31] MEDS: BUSPIRONE HCL 10 MG TABLET PO SCH ×2 (09:43→17:16)
[2016-05-31] MEDS: PREDNISONE 20 MG TABLET PO SCH (09:43)
[2016-05-31] MEDS: BENAZEPRIL HCL 20 MG TABLET PO SCH (09:43)
[2016-05-31] MEDS: DOCUSATE SODIUM 100 MG CAPSULE PO SCH ×2 (09:44→17:16)
[2016-05-31] MEDS: LEVOTHYROXINE SODIUM 0.112 MG TABLET PO SCH (09:44)
[2016-05-31] MEDS: CITALOPRAM HYDROBROMIDE 20 MG TABLET PO SCH ×2 (09:45→22:37)
[2016-05-31] MEDS: BUDESONIDE/FORMOTEROL 80-4.5 MCG 60 PUFF/6.9 GM MDI IH SCH ×2 (09:45→17:17)
[2016-05-31] MEDS: TIOTROPIUM BROMIDE DPI 5 CAP/KIT (18 MCG/CAP) IH SCH (09:45)
[2016-05-31] MEDS: AZITHROMYCIN 500 MG in DEXTROSE 5%-WATER 250 ML IV SCH (09:46)
[2016-05-31] MEDS: GUAIFENESIN 600 MG TABLET.SA PO SCH ×2 (10:14→22:38)
--- NOTE | 2016-05-31 12:10 | PDOC PROGRESS REPORT ---
Subjective Progress Note for:: 05/31/16 Subjective:: Patient seen on morning rounds. She is resting in bed. She continues to have a congested harsh cough. She continues to have wheezing bilaterally. She denies any fever or chills. She denies any significant dyspnea at rest. She states she does get dyspneic when she gets up to walk to the bathroom. She feels though her breathing is improved from yesterday. She denies any nausea, vomiting, or diarrhea. She does complain of some gastroesophageal indigestion symptoms. She denies a significant arthralgias or myalgias. Rest of the review of systems is negative. Physical Exam Vital Signs: Temp Pulse Resp BP Pulse Ox 98.0 F 77 20 126/62 H 100 05/31/16 11:35 05/31/16 11:35 05/31/16 11:35 05/31/16 11:35 05/31/16 11:35 Intake & Output 05/30/16 05/31/16 06/01/16 06:59 06:59 06:59 Intake Total 3 1450 Output Total 600 Balance 1423 1450 Weight 84.1 kg General appearance: PRESENT: no acute distress, obese, well-developed, well- nourished Head exam: PRESENT: atraumatic, normocephalic Eye exam: PRESENT: conjunctiva pink, EOMI, PERRLA. ABSENT: scleral icterus Ear exam: PRESENT: normal external ear exam Mouth exam: PRESENT: moist, tongue midline Neck exam: ABSENT: carotid bruit, JVD, lymphadenopathy, thyromegaly Respiratory exam: PRESENT: rhonchi - bilaterally, symmetrical, unlabored, wheezes Cardiovascular exam: PRESENT: RRR. ABSENT: diastolic murmur, rubs, systolic murmur Pulses: PRESENT: normal dorsalis pedis pul Vascular exam: PRESENT: normal capillary refill Rectal exam: PRESENT: deferred Extremities exam: PRESENT: full ROM. ABSENT: calf tenderness, clubbing, pedal edema Neurological exam: PRESENT: alert, awake, oriented to person, oriented to place , oriented to time, oriented to situation, CN II-XII grossly intact. ABSENT: motor sensory deficit Psychiatric exam: PRESENT: anxious Skin exam: PRESENT: dry, intact, warm. ABSENT: cyanosis, rash Results Laboratory Results: 05/31/16 06:53 05/30/16 06:50 05/31/16 06:53 WBC 20.1 H RBC 3.70 L Hgb 10.4 L Hct 32.0 L MCV 87 MCH 28.2 MCHC 32.6 RDW 18.5 H Plt Count 236 05/30/16 05/30/16 03:42 03:42 Creatine Kinase 37 CK-MB (CK-2) 1.05 Troponin I < 0.012 Impressions: Chest X-Ray 05/29/16 23:14 IMPRESSION: COPD. NO ACUTE RADIOGRAPHIC FINDING IN THE CHEST. INTERVAL RESOLUTION PREVIOUS IDENTIFIED AIRSPACE DISEASE. Assessment & Plan - Diagnosis (1) Acute chronic obstructive pulmonary disease with respiratory failure Is this a current diagnosis for this admission?: YesPlan: Patient presented with acute on chronic exacerbation of her COPD with hypercapnia and hypoxemia yesterday. She required BiPAP therapy yesterday for adequate oxygenation. Today she is able be on nasal cannula at 3 L/m. We'll continue IV antibiotics, steroids and nebulizer treatments. (2) ARF (acute renal failure) Qualifiers: Acute renal failure type: unspecified Qualified Code(s): N17.9 - Acute kidney failure, unspecified Is this a current diagnosis for this admission?: YesPlan: Secondary to poor intake and dehydration. Resolved today with IV hydration. (3) COPD exacerbation Is this a current diagnosis for this admission?: YesPlan: Continue Spiriva, DuoNeb and will add Symbicort twice daily (4) HTN (hypertension) Qualifiers: Hypertension type: essential hypertension Qualified Code(s): I10 - Essential (primary) hypertension Is this a current diagnosis for this admission?: YesPlan: Patient is presently normotensive on current medications we'll continue to monitor (5) Chronic atrial fibrillation Is this a current diagnosis for this admission?: YesPlan: Patient is anticoagulated on Xarelto. - Time Time Spent with patient: 25-34 minutes Critical Time spent with patient: 15-24 minutes Medications reviewed and adjusted accordingly: Yes
[2016-05-31] MEDS: RIVAROXABAN 10 MG TABLET PO SCH (17:18)
[2016-05-31] MEDS ORDERED: BUDESONIDE/FORMOTEROL 160-4.5 MCG 60 PUFF/6 GM MDI IH SCH (22:00)
[2016-05-31] MEDS: ROPINIROLE HCL 1 MG TABLET PO SCH (22:37)
[2016-06-01] MEDS: CEFEPIME HCL 2 GM in DEXTROSE 5%-WATER 100 ML IV SCH ×2 (05:46→17:21)
[2016-06-01] MEDS: IPRATROPIUM/ALBUTEROL 0.5-2.5 MG/3 ML AMPUL NEB SCH ×3 (08:12→20:08)
[2016-06-01] MEDS: LEVOTHYROXINE SODIUM 0.112 MG TABLET PO SCH (08:13)
--- NOTE | 2016-06-01 08:19 | PDOC PROGRESS REPORT ---
Subjective Progress Note for:: 06/01/16 Subjective:: Patient seen on morning rounds. She is resting in bed. She states her breathing feels much better than yesterday. She denies any fever or chills. She denies any significant dyspnea at rest. She states she does get dyspneic when she gets up to walk to the bathroom. She denies any nausea, vomiting, or diarrhea. She denies any significant arthralgias or myalgias. Rest of the review of systems is negative. Physical Exam Vital Signs: Temp Pulse Resp BP Pulse Ox 97.6 F 63 17 124/64 100 06/01/16 03:32 06/01/16 03:32 06/01/16 04:42 06/01/16 03:32 06/01/16 03:32 Intake & Output 05/31/16 06/01/16 06/02/16 06:59 06:59 06:59 Intake Total 1450 1210 Output Total 200 Balance 1450 1010 Weight 84.1 kg 84 kg General appearance: PRESENT: no acute distress, obese, well-developed, well- nourished Head exam: PRESENT: atraumatic Eye exam: PRESENT: conjunctiva pink, EOMI, PERRLA. ABSENT: scleral icterus Ear exam: PRESENT: normal external ear exam Mouth exam: PRESENT: moist, tongue midline Neck exam: ABSENT: carotid bruit, JVD, lymphadenopathy, thyromegaly Respiratory exam: PRESENT: decreased breath sounds, rhonchi, symmetrical, unlabored Cardiovascular exam: PRESENT: RRR. ABSENT: diastolic murmur, rubs, systolic murmur Pulses: PRESENT: normal dorsalis pedis pul Vascular exam: PRESENT: normal capillary refill GI/Abdominal exam: PRESENT: normal bowel sounds, soft. ABSENT: distended, guarding, mass, organolmegaly, rebound, tenderness Rectal exam: PRESENT: deferred Extremities exam: PRESENT: full ROM. ABSENT: calf tenderness, clubbing, pedal edema Neurological exam: PRESENT: alert, awake, oriented to person, oriented to place , oriented to time, oriented to situation, CN II-XII grossly intact. ABSENT: motor sensory deficit Psychiatric exam: PRESENT: appropriate affect, normal mood. ABSENT: homicidal ideation, suicidal ideation Skin exam: PRESENT: dry, intact, warm. ABSENT: cyanosis, rash Results Laboratory Results: 05/31/16 06:53 04/08/17 06:50 05/31/16 06:53 WBC 20.1 H RBC 3.70 L Hgb 10.4 L Hct 32.0 L MCV 87 MCH 28.2 MCHC 32.6 RDW 18.5 H Plt Count 236 05/30/16 05/30/16 03:42 03:42 Creatine Kinase 37 CK-MB (CK-2) 1.05 Troponin I < 0.012 Impressions: Chest X-Ray 05/29/16 23:14 IMPRESSION: COPD. NO ACUTE RADIOGRAPHIC FINDING IN THE CHEST. INTERVAL RESOLUTION PREVIOUS IDENTIFIED AIRSPACE DISEASE. Assessment & Plan - Diagnosis (1) Acute chronic obstructive pulmonary disease with respiratory failure Is this a current diagnosis for this admission?: YesPlan: Respiratory status is improving. No further wheezing. Cultures remain negative. No fever. Saturating well on 3l/min via n/c (2) ARF (acute renal failure) Qualifiers: Acute renal failure type: unspecified Qualified Code(s): N17.9 - Acute kidney failure, unspecified Is this a current diagnosis for this admission?: YesPlan: Secondary to prerenal dehydration. Resolved with IV hydration (3) COPD exacerbation Is this a current diagnosis for this admission?: YesPlan: Continue Spiriva, DuoNeb and will add Symbicort twice daily (4) HTN (hypertension) Qualifiers: Hypertension type: essential hypertension Qualified Code(s): I10 - Essential (primary) hypertension Is this a current diagnosis for this admission?: YesPlan: Patient is presently normotensive on current medications we'll continue to monitor (5) Chronic atrial fibrillation Is this a current diagnosis for this admission?: YesPlan: Patient is anticoagulated on Xarelto.. Presently is in normal sinus rhythm - Time Time Spent with patient: 25-34 minutes Critical Time spent with patient: 15-24 minutes Medications reviewed and adjusted accordingly: Yes Anticipated discharge: Home with Homehealth
[2016-06-01] MEDS: FAMOTIDINE 20 MG TABLET PO SCH ×2 (09:25→22:05)
[2016-06-01] MEDS: GUAIFENESIN 600 MG TABLET.SA PO SCH ×2 (09:25→22:04)
[2016-06-01] MEDS: BENAZEPRIL HCL 20 MG TABLET PO SCH (09:25)
[2016-06-01] MEDS: BUSPIRONE HCL 10 MG TABLET PO SCH ×2 (09:26→17:09)
[2016-06-01] MEDS: MONTELUKAST SODIUM 10 MG TABLET PO SCH (09:26)
[2016-06-01] MEDS: PREDNISONE 20 MG TABLET PO SCH (09:26)
[2016-06-01] MEDS: DOCUSATE SODIUM 100 MG CAPSULE PO SCH ×2 (09:26→17:08)
[2016-06-01] MEDS: DILTIAZEM HCL 180 MG CAPSULE.CR PO SCH ×2 (09:27→22:04)
[2016-06-01] MEDS: CITALOPRAM HYDROBROMIDE 20 MG TABLET PO SCH ×2 (09:27→22:04)
[2016-06-01] MEDS: BUDESONIDE/FORMOTEROL 80-4.5 MCG 60 PUFF/6.9 GM MDI IH SCH ×2 (09:30→17:09)
[2016-06-01] MEDS: TIOTROPIUM BROMIDE DPI 5 CAP/KIT (18 MCG/CAP) IH SCH (09:31)
[2016-06-01] MEDS: AZITHROMYCIN 500 MG in DEXTROSE 5%-WATER 250 ML IV SCH (11:07)
[2016-06-01] MEDS: HYDROCODONE/ACETAMINOPHEN 5-325 MG TABLET PO PRN ×2 (11:51→22:07)
[2016-06-01] MEDS: RIVAROXABAN 10 MG TABLET PO SCH (16:35)
[2016-06-01] MEDS: ROPINIROLE HCL 1 MG TABLET PO SCH (22:04)
[2016-06-02] MEDS: CEFEPIME HCL 2 GM in DEXTROSE 5%-WATER 100 ML IV SCH (05:09)
[2016-06-02] MEDS: LEVOTHYROXINE SODIUM 0.112 MG TABLET PO SCH (08:22)
[2016-06-02] MEDS: IPRATROPIUM/ALBUTEROL 0.5-2.5 MG/3 ML AMPUL NEB SCH ×3 (08:34→20:43)
[2016-06-02] MEDS: AZITHROMYCIN 250 MG TABLET PO SCH (09:25)
[2016-06-02] MEDS: BENAZEPRIL HCL 20 MG TABLET PO SCH (09:26)
[2016-06-02] MEDS: MONTELUKAST SODIUM 10 MG TABLET PO SCH (09:26)
[2016-06-02] MEDS: CITALOPRAM HYDROBROMIDE 20 MG TABLET PO SCH ×2 (09:26→22:48)
[2016-06-02] MEDS: PREDNISONE 20 MG TABLET PO SCH (09:26)
[2016-06-02] MEDS: FAMOTIDINE 20 MG TABLET PO SCH ×2 (09:27→22:48)
[2016-06-02] MEDS: DILTIAZEM HCL 180 MG CAPSULE.CR PO SCH ×2 (09:27→22:46)
[2016-06-02] MEDS: BUSPIRONE HCL 10 MG TABLET PO SCH ×2 (09:27→17:06)
[2016-06-02] MEDS: GUAIFENESIN 600 MG TABLET.SA PO SCH ×2 (09:27→22:47)
[2016-06-02] MEDS: DOCUSATE SODIUM 100 MG CAPSULE PO SCH ×2 (09:27→17:07)
[2016-06-02] MEDS: TIOTROPIUM BROMIDE DPI 5 CAP/KIT (18 MCG/CAP) IH SCH (09:28)
[2016-06-02] MEDS: BUDESONIDE/FORMOTEROL 80-4.5 MCG 60 PUFF/6.9 GM MDI IH SCH ×2 (09:29→17:06)
[2016-06-02] MEDS: NYSTATIN 500000 UNIT/5 ML UDCUP PO SCH ×3 (14:26→22:47)
[2016-06-02] MEDS: RIVAROXABAN 10 MG TABLET PO SCH (16:13)
--- NOTE | 2016-06-02 16:21 | PDOC PROGRESS REPORT ---
Subjective Progress Note for:: 06/02/16 Subjective:: Patient seen on morning rounds. She is resting in bed. She states her breathing is continuing to improve. She denies any fever or chills. She denies any significant dyspnea at rest. She states she does get dyspneic when she gets up to walk to the bathroom. She denies any nausea, vomiting, or diarrhea. She denies any significant arthralgias or myalgias. Rest of the review of systems is negative. Physical Exam Vital Signs: Temp Pulse Resp BP Pulse Ox 98.1 F 66 16 119/64 96 06/02/16 12:20 06/02/16 14:16 06/02/16 14:16 06/02/16 12:20 06/02/16 12:20 Intake & Output 06/01/16 06/02/16 06/03/16 06:59 06:59 06:59 Intake Total 1210 1391 200 Output Total 200 1970 1100 Balance 1010 -579 -900 Weight 84 kg 87.9 kg General appearance: PRESENT: no acute distress, obese, well-developed, well- nourished Head exam: PRESENT: atraumatic, normocephalic Eye exam: PRESENT: conjunctival injection Ear exam: PRESENT: normal external ear exam Mouth exam: PRESENT: moist, tongue midline Neck exam: ABSENT: carotid bruit, JVD, lymphadenopathy, thyromegaly Respiratory exam: PRESENT: clear to auscultation armand. ABSENT: rales, rhonchi, wheezes Cardiovascular exam: PRESENT: RRR. ABSENT: diastolic murmur, rubs, systolic murmur Pulses: PRESENT: normal dorsalis pedis pul Vascular exam: PRESENT: normal capillary refill GI/Abdominal exam: PRESENT: normal bowel sounds, soft. ABSENT: distended, guarding, mass, organolmegaly, rebound, tenderness Rectal exam: PRESENT: deferred Extremities exam: PRESENT: full ROM. ABSENT: calf tenderness, clubbing, pedal edema Neurological exam: PRESENT: alert, awake, oriented to person, oriented to place , oriented to time, oriented to situation, CN II-XII grossly intact. ABSENT: motor sensory deficit Psychiatric exam: PRESENT: appropriate affect, normal mood. ABSENT: homicidal ideation, suicidal ideation Skin exam: PRESENT: dry, intact, warm. ABSENT: cyanosis, rash Results Laboratory Results: 05/31/16 06:53 05/30/16 06:50 05/30/16 05/30/16 03:42 03:42 Creatine Kinase 37 CK-MB (CK-2) 1.05 Troponin I < 0.012 Impressions: Chest X-Ray 05/29/16 23:14 IMPRESSION: COPD. NO ACUTE RADIOGRAPHIC FINDING IN THE CHEST. INTERVAL RESOLUTION PREVIOUS IDENTIFIED AIRSPACE DISEASE. Assessment & Plan - Diagnosis (1) Acute chronic obstructive pulmonary disease with respiratory failure Is this a current diagnosis for this admission?: YesPlan: Respiratory status is improving. No further wheezing. Cultures remain negative. No fever. Saturating well on 3l/min via n/c (2) ARF (acute renal failure) Qualifiers: Acute renal failure type: unspecified Qualified Code(s): N17.9 - Acute kidney failure, unspecified Is this a current diagnosis for this admission?: YesPlan: Secondary to prerenal dehydration. Resolved with IV hydration (3) COPD exacerbation Is this a current diagnosis for this admission?: YesPlan: Continue Spiriva, DuoNeb and will add Symbicort twice daily (4) HTN (hypertension) Qualifiers: Hypertension type: essential hypertension Qualified Code(s): I10 - Essential (primary) hypertension Is this a current diagnosis for this admission?: YesPlan: Patient is presently normotensive on current medications we'll continue to monitor (5) Chronic atrial fibrillation Is this a current diagnosis for this admission?: YesPlan: Patient is anticoagulated on Xarelto.. Presently is in normal sinus rhythm - Time Time Spent with patient: 25-34 minutes Critical Time spent with patient: 15-24 minutes Medications reviewed and adjusted accordingly: Yes Anticipated discharge: Home
[2016-06-02] MEDS ORDERED: DEXTROSE 40% GEL 15 GM TUBE PO PRN ×2 (20:36)
[2016-06-02] MEDS ORDERED: GLUCAGON,HUMAN RECOMB 1 MG INJ IM PRN (20:36)
[2016-06-02] MEDS ORDERED: DEXTROSE 50%-WATER 25 GM/50 ML DISP.SYRIN IV PRN ×2 (20:36)
[2016-06-02] MEDS: ROPINIROLE HCL 1 MG TABLET PO SCH (22:48)
[2016-06-03 04:51] LABS: ABSOLUTE LYMPHOCYTES (AUTO) 2.6 10^3/uL (0.5-4.7); ABSOLUTE MONOCYTES (AUTO) 1.4 10^3/uL (0.1-1.4); BASOPHILS % (AUTO) 0.2 % (0-2); EOSINOPHILS % (AUTO) 0.1 % (0-6); HEMATOCRIT 33.6 % (36.0-47.0); HEMOGLOBIN 10.7 g/dL (12.0-15.5); HGB HCT DIFFERENCE -1.5; LYMPHOCYTES % (AUTO) 17.5 % (13-45); MEAN CORPUSCULAR HEMOGLOBIN 28.1 pg (27.0-33.4); MEAN CORPUSCULAR VOLUME 88 fl (80-97); MONOCYTES % (AUTO) 9.3 % (3-13); RED BLOOD COUNT 3.82 10^6/uL (3.72-5.28); RED CELL DISTRIBUTION WIDTH 19.3 % (11.5-14.0); SEGMENTED NEUTROPHILS % (AUTO) 72.9 % (42-78); WHITE BLOOD COUNT 15.1 10^3/uL (4.0-10.5)
[2016-06-03 05:05] LABS: ANION GAP 9 (5-19); BLOOD UREA NITROGEN 17 mg/dL (7-20); CALCIUM 8.6 mg/dL (8.4-10.2); CARBON DIOXIDE 32 mmol/L (22-30); CHLORIDE 101 mmol/L (98-107); CREATININE RESULT 0.53 mg/dL (0.52-1.25); GLUCOSE 99 mg/dL (75-110); MAGNESIUM 1.9 mg/dL (1.6-2.3); SODIUM 141.5 mmol/L (137-145)
[2016-06-03] MEDS: LEVOTHYROXINE SODIUM 0.112 MG TABLET PO SCH (07:22)
[2016-06-03] MEDS: IPRATROPIUM/ALBUTEROL 0.5-2.5 MG/3 ML AMPUL NEB SCH (08:32)
[2016-06-03] MEDS ORDERED: ALBUTEROL SULFATE 0.042% NEB (1.25 MG/3 ML) AMPUL NEB PRN (09:25)
[2016-06-03] MEDS ORDERED: MECLIZINE HCL 25 MG TABLET PO PRN (09:26)
[2016-06-03] MEDS: TIOTROPIUM BROMIDE DPI 5 CAP/KIT (18 MCG/CAP) IH SCH (09:49)
[2016-06-03] MEDS: NYSTATIN 500000 UNIT/5 ML UDCUP PO SCH ×4 (09:49→21:58)
[2016-06-03] MEDS: GUAIFENESIN 600 MG TABLET.SA PO SCH ×2 (09:50→22:03)
[2016-06-03] MEDS: FAMOTIDINE 20 MG TABLET PO SCH ×2 (09:50→22:04)
[2016-06-03] MEDS: AZITHROMYCIN 250 MG TABLET PO SCH (09:50)
[2016-06-03] MEDS: DOCUSATE SODIUM 100 MG CAPSULE PO SCH ×2 (09:51→17:13)
[2016-06-03] MEDS ORDERED: (PENDING PHARMACY ID) (Diltiazem Hcl [Diltiazem 24hr Er] 180 MG) PO SCH (10:00)
[2016-06-03] MEDS ORDERED: (PENDING PHARMACY ID) (Buspirone Hcl [Buspar 5 Mg Tablet] 5 MG) PO SCH (10:00)
[2016-06-03] MEDS ORDERED: PREDNISONE 20 MG TABLET PO SCH (10:00)
[2016-06-03] MEDS ORDERED: (PENDING PHARMACY ID) (Citalopram Hydrobromide [Celexa 40 Mg Tablet] 40 MG) PO SCH (10:00)
[2016-06-03] MEDS ORDERED: (PENDING PHARMACY ID) (Valacyclovir Hcl [Valtrex] 1,000 MG) PO SCH (10:00)
[2016-06-03] MEDS ORDERED: LEVOTHYROXINE SODIUM 0.112 MG TABLET PO ONE (11:00)
[2016-06-03] MEDS ORDERED: BUSPIRONE HCL 10 MG TABLET PO ONE (11:00)
[2016-06-03] MEDS ORDERED: BENAZEPRIL HCL 20 MG TABLET PO ONE (11:00)
[2016-06-03] MEDS ORDERED: CITALOPRAM HYDROBROMIDE 20 MG TABLET PO ONE (11:00)
[2016-06-03] MEDS ORDERED: BUDESONIDE/FORMOTEROL 160-4.5 MCG 60 PUFF/6 GM MDI IH ONE (11:00)
[2016-06-03] MEDS ORDERED: DILTIAZEM HCL 180 MG CAPSULE.CR PO ONE (11:00)
[2016-06-03] MEDS ORDERED: PREDNISONE 10 MG TABLET PO ONE (11:00)
[2016-06-03] MEDS: ALBUTEROL SULFATE 0.083% NEB 2.5 MG/3 ML AMPUL NEB SCH ×2 (13:56→20:54)
[2016-06-03] MEDS: VALACYCLOVIR HCL 500 MG TABLET PO SCH ×2 (14:09→22:07)
--- NOTE | 2016-06-03 15:51 | PDOC PROGRESS REPORT ---
Subjective Progress Note for:: 06/03/16 Subjective:: The patient was seen earlier today on rounds. The patient admits to shortness of breath and intermittent wheezing. The patient denies any nausea, vomiting, diarrhea, dizziness, chest pain, heart palpitations, fevers, or chills. The patient has remained afebrile. Blood pressures have been in a good range. When prompted the patient voices no other concerns at this time. Review of systems: The rest of the review of systems is negative. Physical Exam Vital Signs: Temp Pulse Resp BP Pulse Ox 97.6 F 85 16 117/72 95 06/03/16 12:00 06/03/16 13:56 06/03/16 13:56 06/03/16 12:00 06/03/16 13:56 Intake & Output 06/01/16 06/02/16 06/03/16 23:59 23:59 23:59 Intake Total 1591 1200 960 Output Total 1350 2120 1850 Balance 241 -920 -890 Weight 84 kg 87.9 kg 89.3 kg General appearance: PRESENT: no acute distress, cooperative, well-developed, well-nourished Head exam: PRESENT: atraumatic, normocephalic Eye exam: PRESENT: conjunctiva pink, EOMI, PERRLA. ABSENT: scleral icterus Ear exam: PRESENT: normal external ear exam Mouth exam: PRESENT: moist, tongue midline Neck exam: ABSENT: carotid bruit, JVD, lymphadenopathy, thyromegaly Respiratory exam: PRESENT: decreased breath sounds, symmetrical, unlabored, wheezes. ABSENT: rales, rhonchi, tachypnea Cardiovascular exam: PRESENT: RRR. ABSENT: diastolic murmur, rubs, systolic murmur Pulses: PRESENT: normal dorsalis pedis pul Vascular exam: PRESENT: normal capillary refill GI/Abdominal exam: PRESENT: normal bowel sounds, soft. ABSENT: distended, guarding, mass, organolmegaly, rebound, tenderness Rectal exam: PRESENT: deferred Extremities exam: PRESENT: full ROM. ABSENT: calf tenderness, clubbing, pedal edema Neurological exam: PRESENT: alert, awake, oriented to person, oriented to place , oriented to time, oriented to situation, CN II-XII grossly intact. ABSENT: motor sensory deficit Psychiatric exam: PRESENT: appropriate affect, normal mood. ABSENT: homicidal ideation, suicidal ideation Skin exam: PRESENT: dry, intact, warm. ABSENT: cyanosis, rash Results Laboratory Results: 06/03/16 04:26 06/03/16 04:26 06/03/16 06/03/16 04:26 04:26 WBC 15.1 H RBC 3.82 Hgb 10.7 L Hct 33.6 L MCV 88 MCH 28.1 MCHC 32.0 RDW 19.3 H Plt Count 210 Seg Neutrophils % 72.9 Lymphocytes % 17.5 Monocytes % 9.3 Eosinophils % 0.1 Basophils % 0.2 Absolute Neutrophils 11.0 H Absolute Lymphocytes 2.6 Absolute Monocytes 1.4 Absolute Eosinophils 0.0 Absolute Basophils 0.0 Sodium 141.5 Potassium 4.0 Chloride 101 Carbon Dioxide 32 H Anion Gap 9 BUN 17 Creatinine 0.53 Est GFR ( Amer) > 60 Est GFR (Non-Af Amer) > 60 Glucose 99 Calcium 8.6 Magnesium 1.9 05/30/16 05/30/16 03:42 03:42 Creatine Kinase 37 CK-MB (CK-2) 1.05 Troponin I < 0.012 Impressions: Chest X-Ray 05/29/16 23:14 IMPRESSION: COPD. NO ACUTE RADIOGRAPHIC FINDING IN THE CHEST. INTERVAL RESOLUTION PREVIOUS IDENTIFIED AIRSPACE DISEASE. Assessment & Plan - Diagnosis (1) ARF (acute renal failure) Qualifiers: Acute renal failure type: unspecified Qualified Code(s): N17.9 - Acute kidney failure, unspecified Is this a current diagnosis for this admission?: YesPlan: Normalized with hydration. (2) COPD exacerbation Is this a current diagnosis for this admission?: YesPlan: Will increase steroids given the patient's persistent wheezing (3) Acute respiratory failure with hypoxia Is this a current diagnosis for this admission?: YesPlan: Will obtain ambulating O2 saturation patient most likely will require home O2. (4) HTN (hypertension) Qualifiers: Hypertension type: essential hypertension Qualified Code(s): I10 - Essential (primary) hypertension Is this a current diagnosis for this admission?: Yes (5) Chronic atrial fibrillation Is this a current diagnosis for this admission?: YesPlan: Continue Cardizem and Xarelto (6) Anticoagulated Is this a current diagnosis for this admission?: Yes (7) Full code status Is this a current diagnosis for this admission?: Yes - Time Time Spent with patient: 25-34 minutes Medications reviewed and adjusted accordingly: Yes Anticipated discharge: Home Within: within 24 hours
[2016-06-03] MEDS: RIVAROXABAN 10 MG TABLET PO SCH (16:19)
[2016-06-03] MEDS: PREDNISONE 10 MG TABLET PO SCH (17:13)
[2016-06-03] MEDS: BUSPIRONE HCL 10 MG TABLET PO SCH (17:14)
[2016-06-03] MEDS: BUDESONIDE/FORMOTEROL 160-4.5 MCG 60 PUFF/6 GM MDI IH SCH (17:15)
[2016-06-03] MEDS: INSULIN LISPRO 100 UNIT/ML 3 ML VIAL SUBCUT PRN ×2 (17:15→23:44)
[2016-06-03] MEDS ORDERED: RIVAROXABAN 10 MG TABLET PO SCH (18:00)
[2016-06-03] MEDS: CITALOPRAM HYDROBROMIDE 20 MG TABLET PO SCH (22:00)
[2016-06-03] MEDS: ROPINIROLE HCL 1 MG TABLET PO SCH (22:03)
[2016-06-03] MEDS: DILTIAZEM HCL 180 MG CAPSULE.CR PO SCH (22:04)
[2016-06-03] MEDS: CARBIDOPA/LEVODOPA ER 50-200 MG TABLET.SA PO SCH (22:06)
[2016-06-03] MEDS: MONTELUKAST SODIUM 10 MG TABLET PO SCH (22:09)
[2016-06-04] MEDS: LEVOTHYROXINE SODIUM 0.112 MG TABLET PO SCH (05:34)
[2016-06-04] MEDS: VALACYCLOVIR HCL 500 MG TABLET PO SCH ×3 (05:34→21:28)
[2016-06-04] MEDS: ALBUTEROL SULFATE 0.083% NEB 2.5 MG/3 ML AMPUL NEB SCH ×3 (08:18→19:39)
[2016-06-04] MEDS: FAMOTIDINE 20 MG TABLET PO SCH ×2 (09:59→21:30)
[2016-06-04] MEDS: BUSPIRONE HCL 10 MG TABLET PO SCH ×2 (09:59→17:41)
[2016-06-04] MEDS: PREDNISONE 10 MG TABLET PO SCH ×2 (10:00→17:41)
[2016-06-04] MEDS: CITALOPRAM HYDROBROMIDE 20 MG TABLET PO SCH ×2 (10:00→21:29)
[2016-06-04] MEDS: AZITHROMYCIN 250 MG TABLET PO SCH (10:01)
[2016-06-04] MEDS: GUAIFENESIN 600 MG TABLET.SA PO SCH ×2 (10:01→21:31)
[2016-06-04] MEDS: DOCUSATE SODIUM 100 MG CAPSULE PO SCH ×2 (10:02→17:42)
[2016-06-04] MEDS: BENAZEPRIL HCL 20 MG TABLET PO SCH (10:02)
[2016-06-04] MEDS: DILTIAZEM HCL 180 MG CAPSULE.CR PO SCH ×2 (10:02→21:30)
[2016-06-04] MEDS: NYSTATIN 500000 UNIT/5 ML UDCUP PO SCH ×4 (10:03→21:32)
[2016-06-04] MEDS: BUDESONIDE/FORMOTEROL 160-4.5 MCG 60 PUFF/6 GM MDI IH SCH ×2 (10:03→17:42)
[2016-06-04] MEDS: TIOTROPIUM BROMIDE DPI 5 CAP/KIT (18 MCG/CAP) IH SCH (11:34)
--- NOTE | 2016-06-04 15:04 | PDOC PROGRESS REPORT ---
Subjective Progress Note for:: 06/04/16 Subjective:: The patient was seen earlier today on rounds. The patient admits to shortness of breath and intermittent wheezing but much improved in comparison to yesterday. The patient denies any nausea, vomiting, diarrhea, dizziness, chest pain, heart palpitations, fevers, or chills. The patient has remained afebrile. Blood pressures have been in a good range. When prompted the patient voices no other concerns at this time. Review of systems: The rest of the review of systems is negative. Physical Exam Vital Signs: Temp Pulse Resp BP Pulse Ox 98.2 F 88 16 127/66 H 95 06/04/16 11:46 06/04/16 14:09 06/04/16 14:09 06/04/16 11:46 06/04/16 14:09 Intake & Output 06/02/16 06/03/16 06/04/16 23:59 23:59 23:59 Intake Total 1200 1320 992 Output Total 2120 2850 1550 Balance -920 -1530 -558 Weight 87.9 kg 89.3 kg 89.5 kg General appearance: PRESENT: no acute distress, cooperative, well-developed, well-nourished Head exam: PRESENT: atraumatic, normocephalic Eye exam: PRESENT: conjunctiva pink, EOMI, PERRLA. ABSENT: scleral icterus Ear exam: PRESENT: normal external ear exam Mouth exam: PRESENT: moist, tongue midline Neck exam: ABSENT: carotid bruit, JVD, lymphadenopathy, thyromegaly Respiratory exam: PRESENT: symmetrical, unlabored, wheezes. ABSENT: rales, rhonchi, tachypnea Cardiovascular exam: PRESENT: RRR. ABSENT: diastolic murmur, rubs, systolic murmur Pulses: PRESENT: normal dorsalis pedis pul Vascular exam: PRESENT: normal capillary refill GI/Abdominal exam: PRESENT: normal bowel sounds, soft. ABSENT: distended, guarding, mass, organolmegaly, rebound, tenderness Rectal exam: PRESENT: deferred Extremities exam: PRESENT: full ROM. ABSENT: calf tenderness, clubbing, pedal edema Neurological exam: PRESENT: alert, awake, oriented to person, oriented to place , oriented to time, oriented to situation, CN II-XII grossly intact. ABSENT: motor sensory deficit Psychiatric exam: PRESENT: appropriate affect, normal mood. ABSENT: homicidal ideation, suicidal ideation Skin exam: PRESENT: dry, intact, warm. ABSENT: cyanosis, rash Results Laboratory Results: 06/03/16 04:26 06/03/16 04:26 05/30/16 03:42 Blood Blood Culture - Final NO GROWTH IN 5 DAYS 05/30/16 02:54 Blood Blood Culture - Final NO GROWTH IN 5 DAYS 05/30/16 05/30/16 03:42 03:42 Creatine Kinase 37 CK-MB (CK-2) 1.05 Troponin I < 0.012 Impressions: Chest X-Ray 05/29/16 23:14 IMPRESSION: COPD. NO ACUTE RADIOGRAPHIC FINDING IN THE CHEST. INTERVAL RESOLUTION PREVIOUS IDENTIFIED AIRSPACE DISEASE. Chest/Abdomen CTA 06/03/16 00:00 IMPRESSION: NO PULMONARY EMBOLI. NO SIGNIFICANT CHANGE FROM 05/01/2016. Assessment & Plan - Diagnosis (1) ARF (acute renal failure) Qualifiers: Acute renal failure type: unspecified Qualified Code(s): N17.9 - Acute kidney failure, unspecified Is this a current diagnosis for this admission?: YesPlan: Normalized with hydration. (2) COPD exacerbation Is this a current diagnosis for this admission?: YesPlan: Increased steroids given the patient's persistent wheezing. Improved. (3) Acute respiratory failure with hypoxia Is this a current diagnosis for this admission?: YesPlan: Will obtain ambulating O2 saturation patient most likely will require home O2. (4) HTN (hypertension) Qualifiers: Hypertension type: essential hypertension Qualified Code(s): I10 - Essential (primary) hypertension Is this a current diagnosis for this admission?: Yes (5) Chronic atrial fibrillation Is this a current diagnosis for this admission?: YesPlan: Continue Cardizem and Xarelto (6) Anticoagulated Is this a current diagnosis for this admission?: Yes (7) Full code status Is this a current diagnosis for this admission?: Yes - Time Time Spent with patient: 25-34 minutes Medications reviewed and adjusted accordingly: Yes Anticipated discharge: Home Within: within 24 hours
[2016-06-04] MEDS: RIVAROXABAN 10 MG TABLET PO SCH (17:40)
[2016-06-04] MEDS: INSULIN LISPRO 100 UNIT/ML 3 ML VIAL SUBCUT PRN (17:40)
[2016-06-04] MEDS: ROPINIROLE HCL 1 MG TABLET PO SCH (21:29)
[2016-06-04] MEDS: MONTELUKAST SODIUM 10 MG TABLET PO SCH (21:30)
[2016-06-04] MEDS: CARBIDOPA/LEVODOPA ER 50-200 MG TABLET.SA PO SCH (21:34)
[2016-06-05] MEDS: VALACYCLOVIR HCL 500 MG TABLET PO SCH (06:05)
[2016-06-05] MEDS: LEVOTHYROXINE SODIUM 0.112 MG TABLET PO SCH (06:08)
[2016-06-05] MEDS: ALBUTEROL SULFATE 0.083% NEB 2.5 MG/3 ML AMPUL NEB SCH (08:47)
[2016-06-05] MEDS: DOCUSATE SODIUM 100 MG CAPSULE PO SCH (10:00)
[2016-06-05] MEDS: DILTIAZEM HCL 180 MG CAPSULE.CR PO SCH (10:00)
[2016-06-05] MEDS: PREDNISONE 10 MG TABLET PO SCH (10:01)
[2016-06-05] MEDS: BENAZEPRIL HCL 20 MG TABLET PO SCH (10:01)
[2016-06-05] MEDS: AZITHROMYCIN 250 MG TABLET PO SCH (10:01)
[2016-06-05] MEDS: BUSPIRONE HCL 10 MG TABLET PO SCH (10:01)
[2016-06-05] MEDS: GUAIFENESIN 600 MG TABLET.SA PO SCH (10:01)
[2016-06-05] MEDS: NYSTATIN 500000 UNIT/5 ML UDCUP PO SCH (10:02)
[2016-06-05] MEDS: CITALOPRAM HYDROBROMIDE 20 MG TABLET PO SCH (10:02)
[2016-06-05] MEDS: BUDESONIDE/FORMOTEROL 160-4.5 MCG 60 PUFF/6 GM MDI IH SCH (10:02)
[2016-06-05] MEDS: TIOTROPIUM BROMIDE DPI 5 CAP/KIT (18 MCG/CAP) IH SCH (10:03)
[2016-06-05] MEDS: FAMOTIDINE 20 MG TABLET PO SCH (10:04)
--- NOTE | 2016-06-05 12:16 | PDOC DISCHARGE SUMMARY ---
General - Admit/Disc Date/PCP Admission Date/Primary Care Provider: 05/30/16 02:41 AGUSTO AGRAWAL, Discharge Date: 06/05/16 - Discharge Diagnosis (1) COPD exacerbation Is this a current diagnosis for this admission?: Yes (2) Acute respiratory failure with hypoxia Is this a current diagnosis for this admission?: Yes (3) ARF (acute renal failure) Is this a current diagnosis for this admission?: Yes (4) HTN (hypertension) Is this a current diagnosis for this admission?: Yes (5) Chronic atrial fibrillation Is this a current diagnosis for this admission?: Yes (6) Anticoagulated Is this a current diagnosis for this admission?: Yes (7) Full code status Is this a current diagnosis for this admission?: Yes - Additional Information Resuscitation Status: Full Code Discharge Diet: As Tolerated, Regular Discharge Activity: Activity As Tolerated Home Medications: Benazepril HCl [Lotensin 20 mg Tablet] 20 mg PO DAILY 05/30/16 Budesonide/Formoterol Fumarate [Symbicort HFA 160-4.5 mcg Inhaler 6 gm] 2 puff IH BID 05/30/16 Buspirone HCl [Buspar 5 mg Tablet] 5 mg PO BID 05/30/16 Carbidopa/Levodopa [Carbidopa-Levo ER 50-200 Tab] 1 tab PO QHS 05/30/16 Citalopram Hydrobromide [Celexa 20 mg Tablet] 20 mg PO DAILY 05/30/16 Citalopram Hydrobromide [Celexa 40 mg Tablet] 40 mg PO DAILY 05/30/16 Diltiazem HCl [Diltiazem 24Hr ER] 180 mg PO BID 05/30/16 Levothyroxine Sodium [Synthroid 0.112 mg Tablet] 0.112 mcg PO DAILY 05/30/16 Meclizine HCl [Antivert 25 mg Tablet] 25 mg PO TIDP PRN 05/30/16 Methylphenidate HCl [Ritalin] 20 mg PO TID 05/30/16 Montelukast Sodium [Singulair 10 mg Tablet] 10 mg PO DAILY 05/30/16 Rivaroxaban [Xarelto] 20 mg PO QPM 05/30/16 Ropinirole HCl 1 mg PO QHS 05/30/16 Valacyclovir HCl [Valtrex] 1,000 mg PO TID 05/30/16 Albuterol Sulfate [Ventolin 0.042% Neb 1.25 mg/3 mL Ampul] 1.25 mg NEB [id number] PRN #30 vial.neb 06/05/16 Prednisone [Deltasone 10 mg Tablet] 10 mg PO ASDIR PRN #21 tablet 06/05/16 Tiotropium [place] [Spiriva Handihaler 5 Cap/Kit (18 Mcg/Cap)] 1 cap IH DAILY kit 06/05/16 History of Present Illness Patient complains of: Shortness of breath History of Present Illness: LEVI GIBBONS is a 66 year old female, with underlying nonhome O2 dependent COPD , having stopped smoking 2 months ago, who presents to the emergency room for evaluation of above complaint. Describes a one-week history of slowly progressive difficulty breathing, in particular with much of any exertion. Has been particularly worse over the last 24 hours. Intermittent sensations of being "hot and cold." Nausea but no vomiting. Decreased by mouth intake over the last 2 or 3 days. However, no diarrhea or dysuria, chest or abdominal pain.Was mildly hypotensive upon initial arrival to the emergency room, but this has responded nicely to IV fluids. No prior intubation. No sleep apnea. Hospitalized on our service the of the of last month with final diagnoses including respiratory failure secondary to combination of COPD exacerbation and pneumonia. Also noted to have leukocytosis, with current workup underway per Dr. Winkler of hematology. Hospital Course Hospital Course: The patient was admitted to [facility]. The patient was placed on scheduled nebs as well as PRN nebs, steroids, empirical antibiotics, and supplemental oxygen. The patient's oxygen, steroids, and nebs were titrated and weaned. The patient did require an increase in steroids given persistent wheezing. The patient was ambulated on 2 separate occasions and made noted improvement in her oxygen saturation over the past 48 hours. The patient ambulated on room air and did not drop below 93% and was able to fully complete sentences upon returning to her room. The patient is back to baseline and able to complete sentences. The patient did not have any radiographic or clinical evidence of pneumonia. Physical Exam Vital Signs: Temp Pulse Resp BP Pulse Ox 97.4 F 80 16 151/81 H 97 06/05/16 07:16 06/05/16 08:49 06/05/16 08:49 06/05/16 07:16 06/05/16 08:49 Intake & Output 06/03/16 06/04/16 06/05/16 23:59 23:59 23:59 Intake Total 1320 1224 410 Output Total 2850 4750 400 Balance -9382 -846 10 Weight 89.3 kg 89.5 kg 89.6 kg General appearance: PRESENT: no acute distress, cooperative, well-developed, well-nourished Head exam: PRESENT: atraumatic, normocephalic Eye exam: PRESENT: conjunctiva pink, EOMI, PERRLA. ABSENT: scleral icterus Ear exam: PRESENT: normal external ear exam Mouth exam: PRESENT: moist, tongue midline Neck exam: ABSENT: carotid bruit, JVD, lymphadenopathy, thyromegaly Respiratory exam: PRESENT: symmetrical, unlabored, wheezes. ABSENT: rales, rhonchi, tachypnea Cardiovascular exam: PRESENT: RRR. ABSENT: diastolic murmur, rubs, systolic murmur Pulses: PRESENT: normal dorsalis pedis pul Vascular exam: PRESENT: normal capillary refill GI/Abdominal exam: PRESENT: normal bowel sounds, soft. ABSENT: distended, guarding, mass, organolmegaly, rebound, tenderness Rectal exam: PRESENT: deferred Extremities exam: PRESENT: full ROM. ABSENT: calf tenderness, clubbing, pedal edema Neurological exam: PRESENT: alert, awake, oriented to person, oriented to place , oriented to time, oriented to situation, CN II-XII grossly intact. ABSENT: motor sensory deficit Psychiatric exam: PRESENT: appropriate affect, normal mood. ABSENT: homicidal ideation, suicidal ideation Skin exam: PRESENT: dry, intact, warm. ABSENT: cyanosis, rash Results Laboratory Results: Labs- Last Values WBC 15.1 10^3/uL (4.0-10.5) H 06/03/16 04:26 RBC 3.82 10^6/uL (3.72-5.28) 06/03/16 04:26 Hgb 10.7 g/dL (12.0-15.5) L 06/03/16 04:26 Hct 33.6 % (36.0-47.0) L 06/03/16 04:26 MCV 88 fl (80-97) 06/03/16 04:26 MCH 28.1 pg (27.0-33.4) 06/03/16 04:26 MCHC 32.0 g/dL (32.0-36.0) 06/03/16 04:26 RDW 19.3 % (11.5-14.0) H 06/03/16 04:26 Plt Count 210 10^3/uL (150-450) 06/03/16 04:26 Seg Neutrophils % 72.9 % (42-78) 06/03/16 04:26 Lymphocytes % 17.5 % (13-45) 06/03/16 04:26 Monocytes % 9.3 % (3-13) 06/03/16 04:26 Eosinophils % 0.1 % (0-6) 06/03/16 04:26 Basophils % 0.2 % (0-2) 06/03/16 04:26 Absolute Neutrophils 11.0 10^3/uL (1.7-8.2) H 06/03/16 04:26 Absolute Lymphocytes 2.6 10^3/uL (0.5-4.7) 06/03/16 04:26 Absolute Monocytes 1.4 10^3/uL (0.1-1.4) 06/03/16 04:26 Absolute Eosinophils 0.0 10^3/uL (0.0-0.6) 06/03/16 04:26 Absolute Basophils 0.0 10^3/uL (0.0-0.2) 06/03/16 04:26 VBG pH 7.39 (7.30-7.42) 05/30/16 06:50 VBG pCO2 37.4 mmHg (35-63) 05/30/16 06:50 VBG HCO3 22.3 mmol/L (20-32) 05/30/16 06:50 VBG Base Excess -2.2 mmol/L 05/30/16 06:50 Sodium 141.5 mmol/L (137-145) 06/03/16 04:26 Potassium 4.0 mmol/L (3.6-5.0) 06/03/16 04:26 Chloride 101 mmol/L (98-107) 06/03/16 04:26 Carbon Dioxide 32 mmol/L (22-30) H 06/03/16 04:26 Anion Gap 9 (5-19) 06/03/16 04:26 BUN 17 mg/dL (7-20) 06/03/16 04:26 Creatinine 0.53 mg/dL (0.52-1.25) 06/03/16 04:26 Est GFR ( Amer) > 60 (>60) 06/03/16 04:26 Est GFR (Non-Af Amer) > 60 (>60) 06/03/16 04:26 Glucose 99 mg/dL (75-110) 06/03/16 04:26 POC Glucose 140 mg/dL (70-110) H 06/05/16 11:10 Calcium 8.6 mg/dL (8.4-10.2) 06/03/16 04:26 Magnesium 1.9 mg/dL (1.6-2.3) 06/03/16 04:26 Total Bilirubin 0.5 mg/dL (0.2-1.3) 05/30/16 00:00 Direct Bilirubin 0.2 mg/dL (0.0-0.4) 05/30/16 00:00 Indirect Bilirubin Not Reportable 05/30/16 00:00 Neonat Total Bilirubin Not Reportable 05/30/16 00:00 AST 30 U/L (14-36) 05/30/16 00:00 ALT 36 U/L (9-52) 05/30/16 00:00 Alkaline Phosphatase 135 U/L (38-126) H 05/30/16 00:00 Creatine Kinase 37 U/L (30-135) 05/30/16 03:42 CK-MB (CK-2) 1.05 ng/mL (<4.55) 05/30/16 03:42 Troponin I < 0.012 ng/mL 05/30/16 03:42 Total Protein 6.6 g/dL (6.3-8.2) 05/30/16 00:00 Albumin 3.6 g/dL (3.5-5.0) 05/30/16 00:00 Influenza A (Rapid) NEGATIVE (NEGATIVE) 05/30/16 02:54 Influenza B (Rapid) NEGATIVE (NEGATIVE) 05/30/16 02:54 05/30/16 03:42 Blood Culture - Final Blood NO GROWTH IN 5 DAYS 05/30/16 02:54 Blood Culture - Final Blood NO GROWTH IN 5 DAYS Impressions: Chest X-Ray 05/29/16 23:14 IMPRESSION: COPD. NO ACUTE RADIOGRAPHIC FINDING IN THE CHEST. INTERVAL RESOLUTION PREVIOUS IDENTIFIED AIRSPACE DISEASE. Chest/Abdomen CTA 06/03/16 00:00 IMPRESSION: NO PULMONARY EMBOLI. NO SIGNIFICANT CHANGE FROM 05/01/2016. Qualifiers PATEINT BEING DISCHARGED WITH ANY OF THE FOLLOWING DIAGNOSIS?: No Plan Discharge Plan: The patient is to followup with their primary care provider, Preeti Martinez, within one week for hospital followup regarding COPD exacerbation. Time Spent: Less than 30 Minutes
[2016-06-05 12:40] VITALS: BP 110/75
== END 2016-06-05 13:25 | disposition home or self-care (01) | DRG 190 ==
LOC: ER 21:38 → UNDOADMIN 05-30 01:13 → EH 05-30 01:13 → 3S 05-30 04:00
PROVIDERS: ADMIT Family Medicine; ATTEND Family Medicine
PROC: 5A09557 Assistance with Respiratory Ventilation, Greater than 96 Consecutive Hours, Continuous Positive Airway Pressure (ICD-10-PCS; principal; 2016-05-30)
DX: J44.1 Chronic obstructive pulmonary disease with (acute) exacerbation (principal); J96.21 Acute and chronic respiratory failure with hypoxia; J96.22 Acute and chronic respiratory failure with hypercapnia; N17.9 Acute kidney failure, unspecified; I48.2 Chronic atrial fibrillation; E03.9 Hypothyroidism, unspecified; F32.9 Major depressive disorder, single episode, unspecified; I10 Essential (primary) hypertension; Z90.710 Acquired absence of both cervix and uterus; Z87.891 Personal history of nicotine dependence; Z86.711 Personal history of pulmonary embolism; Z79.899 Other long term (current) drug therapy; Z88.6 Allergy status to analgesic agent; Z99.81 Dependence on supplemental oxygen; Z79.02 Long term (current) use of antithrombotics/antiplatelets
CPT/HCPCS: 36415; 71010; 71275; 80048; 80053; 82550; 82553; 82803; 82962; 83735; 84484; 85025; 85027; 87040; 87804; 93005; 93010; 94640; 94660; 94667; 94799; 96361; 96365; 99285; J0456; J0692; J1815; J2930; J3475; J3490; J7030; J7060; J7512; J7620; S0028

== ENCOUNTER 2016-12-20 23:21 | Inpatient (IN) | payer MEDICARE, BC ==
[2016-12-20] MEDS ORDERED: IPRATROPIUM/ALBUTEROL 0.5-2.5 MG/3 ML AMPUL NEB ONE (23:52)
--- NOTE | 2016-12-20 23:56 | ER Document Report ---
ED General - General Chief Complaint: dyspnea and emesis Stated Complaint: TROUBLE BREATHING Time Seen by Provider: 12/20/16 23:46 Notes: Patient is a 66-year-old female who presents with complaint of difficulty breathing. She has a history of COPD and asthma. She continues to smoke. She was seen this morning here in the ER. She was given steroids and Levaquin and breathing treatments. She was discharged home. She said she is only worsened. Now she has vomiting continues to cough. She comes in with an oxygen saturation of 88% on room air. She does not wear oxygen at home. She says that she feels that she is worsening. No other complaints at this time. TRAVEL OUTSIDE OF THE [place] IN LAST 30 DAYS: No - Related Data Allergies/Adverse Reactions: hydromorphone HCl [From Dilaudid] Allergy (Intermediate, Verified 12/20/16 04:24 ) Past Medical History - Social History Smoking Status: Current Every Day Smoker Frequency of alcohol use: None Drug Abuse: None Family History: Reviewed & Not Pertinent Patient has suicidal ideation: No Patient has homicidal ideation: No - Past Medical History Cardiac Medical History: Reports: Hx Atrial Fibrillation, Hx Hypertension, Hx Pulmonary Embolism - 30yrs ago Denies: Hx Congestive Heart Failure, Hx Coronary Artery Disease, Hx Heart Attack, Hx Hypercholesterolemia, Hx Peripheral Vascular Disease, Hx Heart Murmur Pulmonary Medical History: Reports: Hx Asthma, Hx Bronchitis, Hx COPD, Hx Pneumonia, Hx Tuberculosis Denies: Hx Respiratory Failure, Hx Sleep Apnea Neurological Medical History: Denies: Hx Seizures Endocrine Medical History: Reports: Hx Hypothyroidism. Denies: Hx Diabetes Mellitus Type 1, Hx Diabetes Mellitus Type 2, Hx Graves' Disease, Hx Hyperthyroidism Renal/ Medical History: Denies: Hx End Stage Renal Disease, Hx Kidney Stones, Hx Peritoneal Dialysis Malignancy Medical History: Denies: Hx Lung Cancer GI Medical History: Reports: Hx Gastroesophageal Reflux Disease Musculoskeltal Medical History: Reports Hx Arthritis, Denies Hx Fibromyalgia, Denies Hx Muscular Dystrophy Psychiatric Medical History: Reports: Hx Depression Denies: Hx Bipolar Disorder, Hx Post Traumatic Stress Disorder, Hx Schizophrenia Traumatic Medical History: Denies: Hx Fractures Infectious Medical History: Denies: Hx C-Diff, Hx MRSA Past Surgical History: Reports: Hx Hysterectomy, Hx Orthopedic Surgery - CARPAL TUNNEL RELEASE, GANGLION CYST REMOVAL, TRIGGER FINGER RELEASE, Hx Tubal Ligation , Hx Urinary Tract Surgery. Denies: Hx Appendectomy, Hx Bowel Surgery, Hx Section, Hx Cholecystectomy, Hx Coronary Artery Bypass Graft, Hx Gastric Bypass Surgery, Hx Herniorrhaphy, Hx Mastectomy, Hx Pacemaker, Hx Tonsillectomy - Immunizations Hx Diphtheria, Pertussis, Tetanus Vaccination: Yes Hx Pneumococcal Vaccination: 02/22/10 Review of Systems - Review of Systems Notes: My Normal Review Basic REVIEW OF SYSTEMS: CONSTITUTIONAL : Denies fever, chills, or sweats. Denies recent illness. EENT: Denies eye, ear, throat, or mouth pain or symptoms. Denies nasal or sinus congestion. CARDIOVASCULAR: Denies chest pain. RESPIRATORY: difficulty breathing. Wheezing GASTROINTESTINAL: Denies abdominal pain. Some vomiting. MUSCULOSKELETAL: Denies neck or back pain or joint pain or swelling. SKIN: Denies rash or skin lesions. NEUROLOGICAL: Denies altered mental status or loss of consciousness. Has a headache. Denies weakness or paralysis or loss of use of either side. Denies problems with gait or speech. Denies sensory or motor loss. ALL OTHER SYSTEMS REVIEWED AND NEGATIVE. Physical Exam - Vital signs Vitals: Temp Pulse Resp BP Pulse Ox 99.1 F 112 H 26 H 152/99 H 88 L 12/20/16 23:38 12/20/16 23:38 12/20/16 23:38 12/20/16 23:38 12/20/16 23:38 - Notes Notes: General Appearance: Well nourished, alert, cooperative, moderate acute distress , mild obvious discomfort. Vitals: reviewed, See vital signs table. Head: no swelling or tenderness to the head Eyes: PERRL, EOMI, Conjuctiva clear Mouth: No decreasd moisture Throat: No tonsillar inflammation, No airway obstruction, No lymphadenopathy Neck: Supple, no neck tenderness, No thyromegaly Lungs: Diffuse wheezing, No rales, diffuse rhonci, No accessory muscle use, fair air exchange bilaterally. Heart: Tachycardic rate, Regular rythm, No murmur, no rub Abdomen: Normal BS, soft, No rigidity, No abdominal tenderness, No guarding, no rebound, no abdominal masses, no organomegaly Extremities: strength 5/5 in all extremities, good pulses in all extremities, no swelling or tenderness in the extremities, no edema. Skin: warm, dry, appropriate color, no rash Neuro: speech clear, oriented x 3, normal affect, responds appropriately to questions. Course - Re-evaluation Re-evalutation: 12/21/16 01:54 Patient's still has a lot of wheezing and tight lung wylie. She still some mild tachypnea. Oxygen saturations still decrease into the upper 80s when taken off supplemental oxygen. At this time we will admit the patient. I did speak with the hospitalist Dr. Espinosa, who agrees to admit the patient. Dictation of this chart was performed using voice recognition software; therefore, there may be some unintended grammatical errors. - Vital Signs Vital signs: Temp Pulse Resp BP Pulse Ox 99.1 F 112 H 26 H 152/99 H 88 L 12/20/16 23:38 12/20/16 23:38 12/20/16 23:38 12/20/16 23:38 12/20/16 23:38 - Laboratory Result Diagrams: 12/21/16 00:00 12/21/16 00:00 Laboratory results interpreted by me: 12/21/16 12/21/16 00:00 00:00 WBC 17.9 H RDW 15.2 H Seg Neutrophils % 82.6 H Lymphocytes % 7.3 L Absolute Neutrophils 14.8 H Absolute Monocytes 1.6 H Direct Bilirubin 0.5 H Discharge - Discharge Clinical Impression: COPD exacerbation Condition: Stable Disposition: ADMITTED OBSERVATION Admitting Provider: Hospitalist Unit Admitted: Telemetry
[2016-12-20] MEDS ORDERED: ONDANSETRON HCL INJ/PF 4 MG/2 ML SDV IV ONE (23:58)
[2016-12-21] MEDS: MAGNESIUM SULFATE/D5W 1 GM/100 ML RTUPB IV SCH ×2 (00:06→00:36)
[2016-12-21 00:18] LABS: ABSOLUTE BASOPHILS # (AUTO) 0.1 10^3/uL (0.0-0.2); ABSOLUTE EOSINOPHILS # (AUTO) 0.2 10^3/uL (0.0-0.6); ABSOLUTE LYMPHOCYTES (AUTO) 1.3 10^3/uL (0.5-4.7); ABSOLUTE MONOCYTES (AUTO) 1.6 10^3/uL (0.1-1.4); ABSOLUTE NEUT (AUTO) 14.8 10^3/uL (1.7-8.2); BASOPHILS % (AUTO) 0.3 % (0-2); EOSINOPHILS % (AUTO) 1.1 % (0-6); HEMATOCRIT 43.7 % (36.0-47.0); HEMOGLOBIN 14.5 g/dL (12.0-15.5); HGB HCT DIFFERENCE -0.2; LYMPHOCYTES % (AUTO) 7.3 % (13-45); MEAN CORPUSCULAR HEMOGLOBIN 30.7 pg (27.0-33.4); MEAN CORPUSCULAR VOLUME 93 fl (80-97); MONOCYTES % (AUTO) 8.7 % (3-13); RED BLOOD COUNT 4.71 10^6/uL (3.72-5.28); RED CELL DISTRIBUTION WIDTH 15.2 % (11.5-14.0); SEGMENTED NEUTROPHILS % (AUTO) 82.6 % (42-78); WHITE BLOOD COUNT 17.9 10^3/uL (4.0-10.5)
[2016-12-21 00:20] LABS: VENOUS BLOOD BASE EXCESS 2.9 mmol/L; VENOUS BLOOD HCO3 28.4 mmol/L (20-32); VENOUS BLOOD PCO2 46.7 mmHg (35-63); VENOUS BLOOD PH 7.4 (7.30-7.42)
[2016-12-21 00:27] LABS: ALANINE AMINOTRANSFERASE 27 U/L (9-52); ALKALINE PHOSPHATASE 106 U/L (38-126); ANION GAP 10 (5-19); ASPARTATE AMINO TRANSFERASE 27 U/L (14-36); BILIRUBIN,DIRECT 0.5 mg/dL (0.0-0.4); BILIRUBIN,TOTAL 0.8 mg/dL (0.2-1.3); BLOOD UREA NITROGEN 11 mg/dL (7-20); CALCIUM 9.2 mg/dL (8.4-10.2); CARBON DIOXIDE 27 mmol/L (22-30); CHLORIDE 102 mmol/L (98-107); CREATININE RESULT 0.69 mg/dL (0.52-1.25); GLUCOSE 110 mg/dL (75-110); POTASSIUM 4.1 mmol/L (3.6-5.0); SODIUM 138.7 mmol/L (137-145); TOTAL PROTEIN 7.2 g/dL (6.3-8.2)
[2016-12-21] MEDS ORDERED: ALBUTEROL SULFATE 0.083% NEB 2.5 MG/3 ML AMPUL NEB ONE ×2 (00:44→01:50)
[2016-12-21] MEDS ORDERED: DILTIAZEM HCL 60 MG TABLET PO ONE (01:54)
[2016-12-21] MEDS ORDERED: IPRATROPIUM/ALBUTEROL 0.5-2.5 MG/3 ML AMPUL NEB PRN (01:56)
[2016-12-21] MEDS ORDERED: CHLORPHENIRAMINE MALEATE 4 MG TABLET PO ONE (01:59)
--- NOTE | 2016-12-21 02:08 | RADIOLOGY REPORT (SQ) ---
EXAM DESCRIPTION: CHEST SINGLE VIEW COMPLETED DATE/TIME: 12/21/2016 1:21 am REASON FOR STUDY: difficulty breathing COMPARISON: 12/20/2016. EXAM PARAMETERS: NUMBER OF VIEWS: One view. TECHNIQUE: Single frontal radiographic view of the chest acquired. RADIATION DOSE: NA LIMITATIONS: None. FINDINGS: LUNGS AND PLEURA: Mild interstitial markings, stable. MEDIASTINUM AND HILAR STRUCTURES: No masses. Contour normal. HEART AND VASCULAR STRUCTURES: Heart normal in size. Normal vasculature. BONES: No acute findings. HARDWARE: None in the chest. OTHER: No other significant finding. IMPRESSION: No acute cardiopulmonary findings. TECHNICAL DOCUMENTATION: JOB ID: [id number]
[2016-12-21] MEDS: IPRATROPIUM/ALBUTEROL 0.5-2.5 MG/3 ML AMPUL NEB SCH ×4 (02:50→20:21)
[2016-12-21] MEDS ORDERED: FLUTICASONE NASAL SPRAY 50 MCG/SPRY 120 SPRAY/16 GM NASL ONE (03:00)
[2016-12-21] MEDS ORDERED: FLUTICASONE NASAL SPRAY 50 MCG/SPRY 120 SPRAY/16 GM ONE (03:39)
[2016-12-21] MEDS ORDERED: CHLORPHENIRAMINE MALEATE 4 MG TABLET ONE (03:39)
[2016-12-21] MEDS: ACETAMINOPHEN 325 MG TABLET PO PRN ×2 (04:48→13:14)
[2016-12-21] MEDS ORDERED: KETOROLAC TROMETHAMINE INJ/PF 30 MG/1 ML SDV IV PRN ×2 (04:50→08:30)
[2016-12-21] MEDS ORDERED: INFLUENZA ADLT QUAD (36MOS+) 2017-18 VAC 0.5 ML SYR IM PRN ×2 (05:16→08:30)
[2016-12-21] MEDS ORDERED: HEPARIN SOD (PORCINE) 5,000 UNIT/ML 1 ML SYRINGE SUBCUT SCH (06:00)
[2016-12-21] MEDS ORDERED: LANSOPRAZOLE 30 MG TAB.RAP.DR PO SCH (06:00)
--- NOTE | 2016-12-21 06:12 | PDOC H&P ---
History of Present Illness Admission Date/PCP: 12/21/16 01:56 AGUSTO AGRAWAL DO Patient complains of: Shortness of breath and cough History of Present Illness: LEVI GIBBONS is a 66 year old female with a past medical history of paroxysmal atrial fibrillation, COPD, chronic bronchitis, persistent tobacco and chronic leukocytosis. Patient complains of 4 days of worsening baseline shortness of breath and cough denying fever chills nausea vomiting. In the emergency room she is found to be tachycardic, tachypneic and hypoxic with oxygen saturations in the mid 80s, leukocytosis but an unremarkable chest x- ray. She has limited improvement from albuterol and Atrovent nebulizers and is referred to the hospitalist for admission. Patient denies chest pain. Past Medical History Cardiac Medical History: Reports: Atrial Fibrillation, Hypertension, Pulmonary Embolism - 30yrs ago Denies: Congestive Heart Failure, Coronary Artery Disease, Myocardial Infarction, Hyperlipidema, Peripheral Vascular Disease, Heart Murmur Pulmonary Medical History: Reports: Asthma, Bronchitis, Chronic Obstructive Pulmonary Disease (COPD), Pneumonia, Tuberculosis Denies: Respiratory Failure, Sleep Apnea Neurological Medical History: Denies: Seizures Endocrine Medical History: Reports: Hypothyroidism Denies: Diabetes Mellitus Type 1, Diabetes Mellitus Type 2, Hyperthyroidism Renal/ Medical History: Denies: End Stage Renal Disease Malignancy Medical History: Denies: Lung Cancer GI Medical History: Reports: Gastroesophageal Reflux Disease Musculoskeltal Medical History: Reports: Arthritis Denies: Fibromyalgia Psychiatric Medical History: Reports: Depression Denies: Bipolar Disorder, Post Traumatic Stress Disorder Infectious Medical History: Denies: Clostridium Difficile, Methicillin-Resistant Staph Aureus Past Surgical History Past Surgical History: Reports: Hysterectomy, Orthopedic Surgery - CARPAL TUNNEL RELEASE, GANGLION CYST REMOVAL, TRIGGER FINGER RELEASE, Tubal Ligation Denies: Amputation, Appendectomy, Section, Cholecystectomy, Coronary Artery Bypass Graft, Gastric Bypass Surgery, Herniorrhaphy, Mastectomy , Pacemaker, Tonsillectomy Social History Information Source: Patient, [facility] Records Smoking Status: Current Every Day Smoker Cigarettes Packs Per Day: 0.5 Number of Years Smokin Last Time Smoked: 12/19/2016 Frequency of Alcohol Use: None Hx Recreational Drug Use: No Drugs: None Hx Prescription Drug Abuse: No - Advance Directive Resuscitation Status: Full Code Family History Family History: COPD Parental Family History Reviewed: Yes Children Family History Reviewed: Yes Sibling(s) Family History Reviewed.: Yes Medication/Allergy Home Medications: Benazepril HCl [Lotensin 20 mg Tablet] 20 mg PO DAILY 05/30/16 Budesonide/Formoterol Fumarate [Symbicort HFA 160-4.5 mcg Inhaler 6 gm] 2 puff IH BID 05/30/16 Buspirone HCl [Buspar 5 mg Tablet] 5 mg PO BID 05/30/16 Carbidopa/Levodopa [Carbidopa-Levo ER 50-200 Tab] 1 tab PO QHS 05/30/16 Citalopram Hydrobromide [Celexa 20 mg Tablet] 20 mg PO DAILY 05/30/16 Citalopram Hydrobromide [Celexa 40 mg Tablet] 40 mg PO DAILY 05/30/16 Diltiazem HCl [Diltiazem 24Hr ER] 180 mg PO BID 05/30/16 Levothyroxine Sodium [Synthroid 0.112 mg Tablet] 0.112 mcg PO DAILY 05/30/16 Meclizine HCl [Antivert 25 mg Tablet] 25 mg PO TIDP PRN 05/30/16 Methylphenidate HCl [Ritalin] 20 mg PO TID 05/30/16 Montelukast Sodium [Singulair 10 mg Tablet] 10 mg PO DAILY 05/30/16 Rivaroxaban [Xarelto] 20 mg PO QPM 05/30/16 Ropinirole HCl 1 mg PO QHS 05/30/16 Valacyclovir HCl [Valtrex] 1,000 mg PO TID 05/30/16 Albuterol Sulfate [Ventolin 0.042% Neb 1.25 mg/3 mL Ampul] 1.25 mg NEB [id number] PRN #30 vial.neb 06/05/16 Prednisone [Deltasone 10 mg Tablet] 10 mg PO ASDIR PRN #21 tablet 06/05/16 Tiotropium Cope [Spiriva Handihaler 5 Cap/Kit (18 Mcg/Cap)] 1 cap IH DAILY kit 06/05/16 Levofloxacin 500 mg PO DAILY #7 tablet 12/20/16 Prednisone [Deltasone 20 mg Tablet] 3 tab PO DAILY 5 Days #15 tablet 12/20/16 Allergies/Adverse Reactions: hydromorphone HCl [From Dilaudid] Allergy (Intermediate, Verified 12/20/16 04:24 ) Review of Systems Constitutional: ABSENT: chills, fever(s), headache(s), weight gain, weight loss Eyes: ABSENT: visual disturbances Ears: ABSENT: hearing changes Cardiovascular: ABSENT: chest pain, dyspnea on exertion, edema, orthropnea, palpitations Respiratory: ABSENT: cough, hemoptysis Gastrointestinal: ABSENT: abdominal pain, constipation, diarrhea, hematemesis, hematochezia, nausea, vomiting Genitourinary: ABSENT: dysuria, hematuria Musculoskeletal: ABSENT: joint swelling Integumentary: ABSENT: rash, wounds Neurological: ABSENT: abnormal gait, abnormal speech, confusion, dizziness, focal weakness, syncope Psychiatric: ABSENT: anxiety, depression, homidical ideation, suicidal ideation Endocrine: ABSENT: cold intolerance, heat intolerance, polydipsia, polyuria Hematologic/Lymphatic: ABSENT: easy bleeding, easy bruising Physical Exam Vital Signs: Temp Pulse Resp BP Pulse Ox 98.3 F 97 22 H 109/69 92 12/21/16 04:28 12/21/16 04:28 12/21/16 04:28 12/21/16 04:28 12/21/16 04:28 Intake & Output 12/19/16 12/20/16 12/21/16 11:59 11:59 11:59 Weight 88 kg General appearance: PRESENT: cooperative, mild distress Head exam: PRESENT: atraumatic, normocephalic Eye exam: PRESENT: conjunctiva pink, EOMI, PERRLA. ABSENT: scleral icterus Ear exam: PRESENT: normal external ear exam Mouth exam: PRESENT: moist, tongue midline Neck exam: ABSENT: carotid bruit, JVD, lymphadenopathy, thyromegaly Respiratory exam: PRESENT: accessory muscle use, crackles, prolonged expiratory phas, symmetrical, tachypnea. ABSENT: rales, rhonchi, wheezes Cardiovascular exam: PRESENT: RRR. ABSENT: diastolic murmur, rubs, systolic murmur Pulses: PRESENT: normal dorsalis pedis pul Vascular exam: PRESENT: normal capillary refill GI/Abdominal exam: PRESENT: normal bowel sounds, soft. ABSENT: distended, guarding, mass, organolmegaly, rebound, tenderness Rectal exam: PRESENT: deferred Extremities exam: PRESENT: full ROM. ABSENT: calf tenderness, clubbing, pedal edema Neurological exam: PRESENT: alert, awake, oriented to person, oriented to place , oriented to time, oriented to situation, CN II-XII grossly intact. ABSENT: motor sensory deficit Psychiatric exam: PRESENT: appropriate affect, normal mood. ABSENT: homicidal ideation, suicidal ideation Skin exam: PRESENT: dry, intact, warm. ABSENT: cyanosis, rash Results Impressions: Chest X-Ray 12/20/16 23:58 IMPRESSION: No acute cardiopulmonary findings. Assessment & Plan - Diagnosis (1) Acute bronchitis Is this a current diagnosis for this admission?: Yes Plan: Telemetry admission, albuterol and Atrovent, Flonase, antihistamine, proton pump inhibitor and flutter valve (2) COPD exacerbation Is this a current diagnosis for this admission?: Yes Plan: Flutter valve, incentive spirometry, supplemental oxygen (3) Tobacco dependence Is this a current diagnosis for this admission?: Yes Plan: Tobacco Dependence patient received tobacco cessation counseling and offered nicotine replacement options - Time Time Spent: 30 to 50 Minutes - Inpatient Certification Medical Necessity: Need Close Monitoring Due to Risk of Patient Decompensation
--- NOTE | 2016-12-21 09:39 | EKG REPORT ---
SEVERITY:- ABNORMAL ECG - SINUS TACHYCARDIA PROBABLE LEFT ATRIAL ABNORMALITY LEFT ANTERIOR FASCICULAR BLOCK BORDERLINE T WAVE ABNORMALITIES : Confirmed by: Shanna Grace 21-Dec-2016 09:39:32
[2016-12-21] MEDS: DILTIAZEM HCL 180 MG CAPSULE.CR PO SCH ×2 (09:59→21:47)
[2016-12-21] MEDS: LEVOTHYROXINE SODIUM 0.112 MG TABLET PO SCH (10:00)
[2016-12-21] MEDS: MONTELUKAST SODIUM 10 MG TABLET PO SCH (10:00)
[2016-12-21] MEDS ORDERED: CITALOPRAM HYDROBROMIDE 20 MG TABLET PO SCH (10:00)
[2016-12-21] MEDS ORDERED: PREDNISONE 20 MG TABLET PO SCH (10:00)
[2016-12-21] MEDS ORDERED: (PENDING PHARMACY ID) (Citalopram Hydrobromide [Celexa 40 Mg Tablet] 40 MG) PO SCH (10:00)
[2016-12-21] MEDS ORDERED: DILTIAZEM HCL 180 MG CAPSULE.CR PO SCH (10:00)
[2016-12-21] MEDS: LEVOFLOXACIN 750 MG/D5W RTU 750 MG/150 ML RTUPB IV SCH (10:01)
[2016-12-21] MEDS: BUSPIRONE HCL 10 MG TABLET PO SCH ×2 (10:03→17:30)
[2016-12-21] MEDS: BENAZEPRIL HCL 20 MG TABLET PO SCH (10:21)
[2016-12-21] MEDS: FLUTICASONE NASAL SPRAY 50 MCG/SPRY 120 SPRAY/16 GM NASL SCH ×2 (11:06→21:45)
--- NOTE | 2016-12-21 11:28 | PDOC PROGRESS REPORT ---
Subjective Progress Note for:: 12/21/16 Subjective:: Patient was admitted this morning at approximately 6 AM for COPD with exacerbation. When I saw her earlier today she was still quite wheezy. Therefore, I have changed her oral steroids to intravenous. She states that she is really not feeling much better than when she first came into the emergency department. She is continuing to complain of shortness of breath above baseline and wheezing. Physical Exam Vital Signs: Temp Pulse Resp BP Pulse Ox 97.9 F 78 18 104/55 L 99 12/21/16 08:14 12/21/16 08:14 12/21/16 08:14 12/21/16 08:14 12/21/16 08:14 Intake & Output 12/20/16 12/21/16 12/22/16 06:59 06:59 06:59 Intake Total 3 Balance 3 Weight 88 kg Additional comments: The patient does not appear to be in distress. Audible wheezing is noted. She does speak in choppy sentences, however. Her lungs demonstrate severe and diffuse wheezing both on inspiration and expiration. Wheezing is present in all lung wylie and it is present both anteriorly and posteriorly. Her cardiac exam demonstrates a regular rate and rhythm without murmurs, gallops or rubs. The abdomen is soft and flat. Bowel sounds are present in the lower quadrants. The abdomen is benign. The lower extremities are warm to touch. No pitting edema is present. The skin is warm dry and intact without lesions or rashes. Results Impressions: Chest X-Ray 12/20/16 23:58 IMPRESSION: No acute cardiopulmonary findings. Assessment & Plan - Diagnosis (1) Acute bronchitis Is this a current diagnosis for this admission?: Yes (2) COPD exacerbation Is this a current diagnosis for this admission?: Yes (3) Leucocytosis Is this a current diagnosis for this admission?: Yes (4) Tobacco dependence Is this a current diagnosis for this admission?: Yes (5) Anticoagulated Is this a current diagnosis for this admission?: Yes (6) Chronic atrial fibrillation Is this a current diagnosis for this admission?: Yes - Time Time Spent with patient: 15-24 minutes - Inpatient Certification Medical Necessity: Need Close Monitoring Due to Risk of Patient Decompensation, Risk of Complication if Not Cared For in Hospital - Plan Summary Plan Summary: Patient is being admitted for acute bronchitis leading to COPD with exacerbation. At this point time the patient is not medically stable for discharge. She has severe wheezing. I have augmented her regimen to include intravenous corticosteroids. She will remain on IV antibiotics. She will remain on frequent bronchodilators and we will continue her inhaled steroids as well. I anticipate that she will be in the hospital for another 2 nights. She does have a leukocytosis. This is neutrophil predominant and likely related to steroids because it appears that she was taking steroids prior to coming into the hospital. The patient does have chronic atrial fibrillation, history of PE. She will remain on her anticoagulation with Xarelto.
[2016-12-21] MEDS: METHYLPREDNISOLONE INJ 125 MG/2 ML SDV IV SCH ×2 (13:09→21:47)
--- NOTE | 2016-12-21 14:10 | Physician Advisory Note ---
Physician Advisor ProgressNote .: Pursuant to the plan for Dmitri Stringer, I have reviewed the medical record for this patient. Physician Advisor Statement: EXcellent documentation of attending thought process in today's progress note. This Medicare pt is clearly not ready for d/c later today, & has spent 1 MN already in hospital care. Appropriate for change to Inpt status now. Please consider documentin. if you think pt may have had "Acute Hypoxemic Respiratory Failure", given sat high 80s off O2 in ED, with "moderate acute distress" at the time, and continued distress + accessory muscle use at time of H&P w/sats as low as 92 & 94% on 2L O2. 2. clarify 1 dx: H&P states "Paroxysmal Afib". Prog note states "RRR" on exam but "chronic Afib". Which type of Afib does pt have? Thanks! CK
[2016-12-21] MEDS: RIVAROXABAN 10 MG TABLET PO SCH (17:30)
[2016-12-21] MEDS: LANSOPRAZOLE 30 MG TAB.RAP.DR PO SCH (17:30)
[2016-12-21] MEDS: ALBUTEROL SULFATE 0.042% NEB (1.25 MG/3 ML) AMPUL NEB PRN (17:46)
[2016-12-21] MEDS: BUDESONIDE NEB 0.5 MG/2 ML AMPUL NEB SCH (20:22)
[2016-12-21] MEDS ORDERED: CARBIDOPA/LEVODOPA ER 50-200 MG TABLET.SA PO SCH (22:00)
[2016-12-22] MEDS: IPRATROPIUM/ALBUTEROL 0.5-2.5 MG/3 ML AMPUL NEB SCH ×4 (01:42→20:28)
[2016-12-22 05:49] LABS: HEMATOCRIT 41.7 % (36.0-47.0); HEMOGLOBIN 13.9 g/dL (12.0-15.5); MEAN CORPUSCULAR HGB CONC 33.3 g/dL (32.0-36.0); MEAN CORPUSCULAR VOLUME 93 fl (80-97); RED BLOOD COUNT 4.47 10^6/uL (3.72-5.28); RED CELL DISTRIBUTION WIDTH 15.4 % (11.5-14.0); WHITE BLOOD COUNT 12.5 10^3/uL (4.0-10.5)
[2016-12-22 05:54] LABS: ANION GAP 10 (5-19); BLOOD UREA NITROGEN 23 mg/dL (7-20); CALCIUM 9.2 mg/dL (8.4-10.2); CARBON DIOXIDE 26 mmol/L (22-30); CHLORIDE 106 mmol/L (98-107); CREATININE RESULT 0.73 mg/dL (0.52-1.25); GLUCOSE 163 mg/dL (75-110); POTASSIUM 4.3 mmol/L (3.6-5.0); SODIUM 142.4 mmol/L (137-145)
[2016-12-22 06:22] LABS: BAND NEUTROPHILS % (MANUAL) 2 % (3-5); BASOPHILS % (MANUAL) 0 % (0-2); EOSINOPHILS % (MANUAL) 0 % (0-6); LYMPHOCYTES % (MANUAL) 4 % (13-45); TOTAL CELLS COUNTED 100
[2016-12-22 06:24] LABS: ANISOCYTOSIS SLIGHT
[2016-12-22] MEDS: METHYLPREDNISOLONE INJ 125 MG/2 ML SDV IV SCH ×3 (07:06→21:24)
[2016-12-22] MEDS: LANSOPRAZOLE 30 MG TAB.RAP.DR PO SCH ×2 (07:07→16:22)
[2016-12-22] MEDS: GUAIFENESIN SYRP 200 MG/10 ML UDC PO PRN ×2 (07:16→14:34)
[2016-12-22] MEDS: BUDESONIDE NEB 0.5 MG/2 ML AMPUL NEB SCH ×2 (08:11→20:28)
[2016-12-22] MEDS: LEVOTHYROXINE SODIUM 0.112 MG TABLET PO SCH (11:19)
[2016-12-22] MEDS: DILTIAZEM HCL 180 MG CAPSULE.CR PO SCH ×2 (11:19→21:24)
[2016-12-22] MEDS: BENAZEPRIL HCL 20 MG TABLET PO SCH (11:20)
[2016-12-22] MEDS: FLUTICASONE NASAL SPRAY 50 MCG/SPRY 120 SPRAY/16 GM NASL SCH ×2 (11:21→21:25)
[2016-12-22] MEDS: MONTELUKAST SODIUM 10 MG TABLET PO SCH ×2 (11:22→21:24)
[2016-12-22] MEDS: BUSPIRONE HCL 10 MG TABLET PO SCH (11:22)
[2016-12-22] MEDS: LEVOFLOXACIN 750 MG/D5W RTU 750 MG/150 ML RTUPB IV SCH (11:22)
--- NOTE | 2016-12-22 11:41 | PDOC PROGRESS REPORT ---
Subjective Progress Note for:: 12/22/16 Subjective:: Patient was admitted yesterday morning at approximately 6 AM for COPD with exacerbation. Patient was noted to be in acute hypoxic respiratory failure. Apparently, she does not normally wear oxygen at home. Patient has atrial fibrillation but it is paroxysmal in nature and she is anticoagulated. Yesterday when I saw the patient she was on oral prednisone, but, she was still in moderate distress. Therefore, I switched her to IV steroids. Today, she feels better at rest but is still severely dyspneic with minimal activity. She will require another 1 or 2 midnights for treatment of her acute bronchitis and COPD with exacerbation. Other than difficulty with breathing she has no other specific complaints today. Physical Exam Vital Signs: Temp Pulse Resp BP Pulse Ox 97.7 F 95 18 109/68 89 L 12/22/16 07:50 12/22/16 08:10 12/22/16 08:10 12/22/16 07:50 12/22/16 08:10 Intake & Output 12/21/16 12/22/16 12/23/16 06:59 06:59 06:59 Intake Total 1371 Output Total 1000 Balance 371 Weight 88 kg Additional comments: The patient appears to be older than her stated age. When I saw her today she did appear significantly improved from yesterday. She continues to have audible wheezing but it is less pronounced. She does have wheezing in all lung wylie but it is slightly better than yesterday. Wheezing is both on inspiration and expiration. Today, her cardiac exam demonstrated and irregularly irregular rhythm. The monitor demonstrates atrial fibrillation. Telemetry confirms that she is at times in sinus rhythm and she is at times in atrial fibrillation. The patient's abdomen is soft and flat. She has no guarding or rebound noted. There are no hernias or masses present. Patient's lower extremities are warm to touch. There is no pitting edema. The skin is warm, dry and intact without lesions or rashes. Results Laboratory Results: 12/22/16 04:59 12/22/16 04:59 12/22/16 12/22/16 04:59 04:59 WBC 12.5 H RBC 4.47 Hgb 13.9 Hct 41.7 MCV 93 MCH 31.0 MCHC 33.3 RDW 15.4 H Plt Count 170 Seg Neutrophils % Not Reportable Lymphocytes % Not Reportable Monocytes % Not Reportable Eosinophils % Not Reportable Basophils % Not Reportable Absolute Neutrophils Not Reportable Absolute Lymphocytes Not Reportable Absolute Monocytes Not Reportable Absolute Eosinophils Not Reportable Absolute Basophils Not Reportable Sodium 142.4 Potassium 4.3 Chloride 106 Carbon Dioxide 26 Anion Gap 10 BUN 23 H Creatinine 0.73 Est GFR ( Amer) > 60 Est GFR (Non-Af Amer) > 60 Glucose 163 H Calcium 9.2 Impressions: Chest X-Ray 12/20/16 23:58 IMPRESSION: No acute cardiopulmonary findings. Assessment & Plan - Diagnosis (1) Acute respiratory failure with hypoxia Is this a current diagnosis for this admission?: Yes Plan: Continue supplemental oxygen and wean as tolerated. (2) Acute bronchitis Is this a current diagnosis for this admission?: Yes Plan: Continue Levaquin. (3) COPD exacerbation Is this a current diagnosis for this admission?: Yes Plan: Continue IV steroids. I would not yet decrease the dose. Tomorrow, she may be ready for oral steroids. Continue bronchodilators. Continue inhaled steroids. (4) Leucocytosis Is this a current diagnosis for this admission?: Yes Plan: Improved. This could be related to corticosteroids and/or acute illness. (5) Tobacco dependence Is this a current diagnosis for this admission?: Yes Plan: Continue attempts at smoking cessation. (6) Anticoagulated Is this a current diagnosis for this admission?: Yes Plan: Patient is on Xarelto (7) Chronic atrial fibrillation Is this a current diagnosis for this admission?: Yes Plan: Patient appears to have underlying atrial fibrillation but it is not constant. She does have periods of sinus rhythm. However, I would not characterize it as paroxysmal. We will continue her rate control agents and anticoagulation. - Time Time Spent with patient: 25-34 minutes - Inpatient Certification Medical Necessity: Significant Comorbidiites Make Outpatient Treatment Too Risky , Need Close Monitoring Due to Risk of Patient Decompensation, Need For Continuous Telemetry Monitoring, Need for IV Antibiotics, Risk of Complication if Not Cared For in Hospital
[2016-12-22] MEDS: RIVAROXABAN 10 MG TABLET PO SCH (18:43)
[2016-12-22] MEDS: DOCUSATE SODIUM 100 MG CAPSULE PO SCH (18:43)
[2016-12-22] MEDS: ROPINIROLE HCL 1 MG TABLET PO SCH (21:24)
[2016-12-22] MEDS: CITALOPRAM HYDROBROMIDE 20 MG TABLET PO SCH (21:24)
[2016-12-22] MEDS: ALBUTEROL SULFATE 0.042% NEB (1.25 MG/3 ML) AMPUL NEB PRN (22:36)
[2016-12-23] MEDS: IPRATROPIUM/ALBUTEROL 0.5-2.5 MG/3 ML AMPUL NEB SCH ×2 (01:49→08:54)
[2016-12-23] MEDS: METHYLPREDNISOLONE INJ 125 MG/2 ML SDV IV SCH ×2 (05:10→14:17)
[2016-12-23] MEDS: LANSOPRAZOLE 30 MG TAB.RAP.DR PO SCH ×2 (05:10→16:24)
[2016-12-23] MEDS: BUDESONIDE NEB 0.5 MG/2 ML AMPUL NEB SCH ×2 (08:53→19:54)
[2016-12-23] MEDS: LEVOTHYROXINE SODIUM 0.112 MG TABLET PO SCH (09:12)
[2016-12-23] MEDS: DOCUSATE SODIUM 100 MG CAPSULE PO SCH ×2 (09:13→17:15)
[2016-12-23] MEDS: LEVOFLOXACIN 750 MG/D5W RTU 750 MG/150 ML RTUPB IV SCH (09:13)
[2016-12-23] MEDS: FLUTICASONE NASAL SPRAY 50 MCG/SPRY 120 SPRAY/16 GM NASL SCH (09:13)
--- NOTE | 2016-12-23 12:26 | PDOC PROGRESS REPORT ---
Subjective Progress Note for:: 12/23/16 Subjective:: Patient is a 66 year old female admitted on 12/21/2016 with COPD exacerbation. Patient was switched to IV Solu-Medrol on 12/22/2016. Patient states that she is still very short of breath with minimal activity. Patient unfortunately continues to smoke. Physical Exam Vital Signs: Temp Pulse Resp BP Pulse Ox 98.2 F 100 20 97/53 L 98 12/23/16 08:31 12/23/16 08:58 12/23/16 08:58 12/23/16 08:31 12/23/16 08:58 Intake & Output 12/22/16 12/23/16 12/24/16 06:59 06:59 06:59 Intake Total 1371 1596 Output Total 1000 900 Balance 371 696 Weight 88 kg 88.2 kg General appearance: PRESENT: cooperative, mild distress, other - Lying on left side in the bed Head exam: PRESENT: normocephalic Eye exam: PRESENT: EOMI. ABSENT: scleral icterus Ear exam: PRESENT: normal external ear exam Mouth exam: PRESENT: moist, tongue midline Neck exam: ABSENT: carotid bruit, JVD, lymphadenopathy, thyromegaly Respiratory exam: PRESENT: wheezes - Diffuse wheezing. ABSENT: rales, rhonchi, unlabored Cardiovascular exam: PRESENT: irregular rhythm. ABSENT: diastolic murmur, rubs , systolic murmur Pulses: PRESENT: normal dorsalis pedis pul Vascular exam: PRESENT: normal capillary refill GI/Abdominal exam: PRESENT: normal bowel sounds, soft. ABSENT: distended, guarding, mass, organolmegaly, rebound, tenderness Rectal exam: PRESENT: deferred Extremities exam: PRESENT: full ROM. ABSENT: calf tenderness, clubbing, pedal edema Neurological exam: PRESENT: alert, awake, oriented to person, oriented to place , oriented to time, oriented to situation, CN II-XII grossly intact. ABSENT: motor sensory deficit Psychiatric exam: PRESENT: appropriate affect, normal mood. ABSENT: homicidal ideation, suicidal ideation Skin exam: PRESENT: dry, intact, warm. ABSENT: cyanosis, rash Results Laboratory Results: 12/22/16 04:59 12/22/16 04:59 Impressions: Chest X-Ray 12/20/16 23:58 IMPRESSION: No acute cardiopulmonary findings. Assessment & Plan - Diagnosis (1) COPD exacerbation Is this a current diagnosis for this admission?: Yes Plan: COPD exacerbation due to acute bronchitis. Patient on Levaquin for the bronchitis. Patient on Solu-Medrol IV with COPD exacerbation along with scheduled nebulizers. Patient is still having dyspnea with minimal exertion. Patient may require several more days of IV Solu-Medrol with scheduled nebs before clinical improvement is seen. (2) Leucocytosis Is this a current diagnosis for this admission?: Yes Plan: Leukocytosis is improved from 17,000-12,000. Patient was most likely having a stress response. However now that patient is on high-dose steroids, she may develop worsening leukocytosis. (3) Tobacco dependence Is this a current diagnosis for this admission?: Yes Plan: Patient counseled on smoking cessation. (4) Acute bronchitis Is this a current diagnosis for this admission?: Yes Plan: Patient currently on Levaquin IV steroids and nebs. Will continue to monitor for improvement (5) Acute respiratory failure with hypoxia Is this a current diagnosis for this admission?: Yes Plan: She currently on supplemental oxygen. Patient satting 94-98% on 2 L nasal cannula. Will continue supplemental oxygen. (6) Chronic atrial fibrillation Is this a current diagnosis for this admission?: Yes Plan: Patient rate has been fluctuating from the 80s to the low 100s. Patient continued on her diltiazem and anticoagulation with Xarelto. (7) HTN (hypertension) Qualifiers: Hypertension type: essential hypertension Qualified Code(s): I10 - Essential (primary) hypertension Plan: Patient normally has hypotension however patient is hypotensive at this time. Will hold patient Lotensin. We will continue her diltiazem for rate control. Patient tachycardia may be due to the use of DuoNeb's who change to Xopenex if this helps with the tachycardia. - Time Time Spent with patient: 15-24 minutes Medications reviewed and adjusted accordingly: Yes Anticipated discharge: Home Within: within 72 hours - Inpatient Certification Medical Necessity: Significant Comorbidiites Make Outpatient Treatment Too Risky , Need Close Monitoring Due to Risk of Patient Decompensation
[2016-12-23] MEDS: LEVALBUTEROL HCL NEB 1.25 MG/3 ML AMPUL NEB SCH ×2 (13:38→19:54)
[2016-12-23] MEDS: DILTIAZEM HCL 180 MG CAPSULE.CR PO SCH (14:13)
[2016-12-23] MEDS: RIVAROXABAN 10 MG TABLET PO SCH (17:16)
[2016-12-23] MEDS: GUAIFENESIN SYRP 200 MG/10 ML UDC PO PRN (17:39)
[2016-12-24] MEDS: CITALOPRAM HYDROBROMIDE 20 MG TABLET PO SCH ×2 (00:17→22:42)
[2016-12-24] MEDS: DILTIAZEM HCL 180 MG CAPSULE.CR PO SCH ×3 (00:18→22:42)
[2016-12-24] MEDS: MONTELUKAST SODIUM 10 MG TABLET PO SCH ×2 (00:18→22:42)
[2016-12-24] MEDS: ROPINIROLE HCL 1 MG TABLET PO SCH ×2 (00:19→22:42)
[2016-12-24] MEDS: METHYLPREDNISOLONE INJ 125 MG/2 ML SDV IV SCH ×4 (00:19→22:43)
[2016-12-24] MEDS: FLUTICASONE NASAL SPRAY 50 MCG/SPRY 120 SPRAY/16 GM NASL SCH ×3 (00:22→23:07)
[2016-12-24] MEDS: LEVALBUTEROL HCL NEB 1.25 MG/3 ML AMPUL NEB SCH ×4 (01:42→19:51)
[2016-12-24] MEDS: LANSOPRAZOLE 30 MG TAB.RAP.DR PO SCH ×2 (06:39→16:41)
[2016-12-24] MEDS: BUDESONIDE NEB 0.5 MG/2 ML AMPUL NEB SCH ×2 (08:22→19:51)
[2016-12-24] MEDS: DOCUSATE SODIUM 100 MG CAPSULE PO SCH ×2 (10:27→17:08)
[2016-12-24] MEDS: LEVOTHYROXINE SODIUM 0.112 MG TABLET PO SCH (10:27)
[2016-12-24] MEDS: LEVOFLOXACIN 750 MG TABLET PO SCH (10:27)
[2016-12-24] MEDS ORDERED: BISACODYL 5 MG TABEC PO ONE (11:30)
[2016-12-24] MEDS ORDERED: SORBITOL 70% SOLUTION 30 ML UDC PO ONE (12:00)
[2016-12-24] MEDS ORDERED: METOPROLOL TARTRATE PF/INJ 5 MG/5 ML SDV IV PRN (13:25)
--- NOTE | 2016-12-24 13:48 | PDOC PROGRESS REPORT ---
Subjective Progress Note for:: 12/24/16 Subjective:: Patient is a 66 year old female admitted on 12/21/2016 with COPD exacerbation. Patient was switched to IV Solu-Medrol on 12/22/2016. Patient still short of breath with minimal activity however she states she feels she is getting better. Patient still have productive cough however the sputum is clearing up. Patient is not very hungry at this time. Is not eating lunch. Physical Exam Vital Signs: Temp Pulse Resp BP Pulse Ox 97.5 F 102 H 23 H 120/68 96 12/24/16 11:49 12/24/16 11:49 12/24/16 11:49 12/24/16 11:49 12/24/16 11:49 Intake & Output 12/23/16 12/24/16 12/25/16 06:59 06:59 06:59 Intake Total 1596 2076 Output Total 900 1500 Balance 696 576 Weight 88.2 kg 88.2 kg General appearance: PRESENT: no acute distress, obese Head exam: PRESENT: normocephalic Eye exam: PRESENT: EOMI, PERRLA. ABSENT: scleral icterus Mouth exam: PRESENT: moist, tongue midline, other - Oral thrush Neck exam: ABSENT: carotid bruit, JVD, lymphadenopathy, thyromegaly Respiratory exam: PRESENT: wheezes - Diffuse. ABSENT: rales, rhonchi, unlabored Cardiovascular exam: PRESENT: RRR. ABSENT: diastolic murmur, rubs, systolic murmur Pulses: PRESENT: normal dorsalis pedis pul Vascular exam: PRESENT: normal capillary refill GI/Abdominal exam: PRESENT: normal bowel sounds, soft. ABSENT: distended, guarding, mass, organolmegaly, rebound, tenderness Rectal exam: PRESENT: deferred Extremities exam: PRESENT: full ROM. ABSENT: calf tenderness, clubbing, pedal edema Neurological exam: PRESENT: alert, awake, oriented to person, oriented to place , oriented to time, oriented to situation, CN II-XII grossly intact. ABSENT: motor sensory deficit Psychiatric exam: PRESENT: appropriate affect, normal mood. ABSENT: homicidal ideation, suicidal ideation Skin exam: PRESENT: dry, intact, warm. ABSENT: cyanosis, rash Results Laboratory Results: 12/22/16 04:59 12/22/16 04:59 Impressions: Chest X-Ray 12/20/16 23:58 IMPRESSION: No acute cardiopulmonary findings. Assessment & Plan - Diagnosis (1) COPD exacerbation Is this a current diagnosis for this admission?: Yes Plan: COPD exacerbation due to acute bronchitis. Patient on Levaquin, Solu-Medrol IV with COPD exacerbation along with scheduled nebulizers. Patient continues to have dyspnea with minimal exertion. Patient may require several more days of IV Solu-Medrol with scheduled nebs before clinical improvement is seen. (2) Leucocytosis Is this a current diagnosis for this admission?: Yes Plan: Leukocytosis is improved from 17,000-12,000. Patient was most likely having a stress response. However now that patient is on high-dose steroids, she may develop worsening leukocytosis. (3) Tobacco dependence Is this a current diagnosis for this admission?: Yes Plan: Patient counseled on smoking cessation. She reports quitting 3 days before coming into the hospital. (4) Acute bronchitis Is this a current diagnosis for this admission?: Yes Plan: Patient currently on Levaquin IV steroids and nebs. As stated in COPD exacerbation, patient is still having significant shortness of breath with minimal activity. (5) Acute respiratory failure with hypoxia Is this a current diagnosis for this admission?: Yes Plan: Patient maintaining her sats mid to high 90s on supplemental oxygen. (6) Chronic atrial fibrillation Is this a current diagnosis for this admission?: Yes Plan: Still in A. fib with heart rates above 100s at time. This may be worsened by patient acute respiratory status. Predict that once patient COPD exacerbation is treated heart rate will be better controlled. Will start patient on metoprolol IV push 5 mg every 6 as needed for heart rates greater than 100. Patient continued on her diltiazem and anticoagulation with Xarelto. (7) HTN (hypertension) Qualifiers: Hypertension type: essential hypertension Qualified Code(s): I10 - Essential (primary) hypertension Plan: Patient hypotension has improved. Patient still on diltiazem for her A. fib with RVR. Patient Lotensin is still being held. Patient blood pressure may actually improve if her heart rate is regulated. (8) Thrush, oral Plan: Most likely due from receiving high-dose steroids and inhaled steroids. Will encourage. Patient to rinse her mouth out after treatment also will start patient on nystatin swish and swallow swish and spit. - Time Time Spent with patient: Less than 15 minutes Medications reviewed and adjusted accordingly: Yes Anticipated discharge: Home Within: within 72 hours - Inpatient Certification Medical Necessity: Need Close Monitoring Due to Risk of Patient Decompensation - She is still very short of breath with medical minimal activity.
[2016-12-24] MEDS: NYSTATIN 500000 UNIT/5 ML UDCUP PO SCH ×3 (14:46→22:42)
[2016-12-24] MEDS: RIVAROXABAN 10 MG TABLET PO SCH (17:06)
[2016-12-24] MEDS: GUAIFENESIN 600 MG TABLET.SA PO SCH (23:07)
[2016-12-25] MEDS: LEVALBUTEROL HCL NEB 1.25 MG/3 ML AMPUL NEB SCH ×5 (02:13→23:56)
[2016-12-25] MEDS: LANSOPRAZOLE 30 MG TAB.RAP.DR PO SCH ×2 (05:54→18:49)
[2016-12-25] MEDS: METHYLPREDNISOLONE INJ 125 MG/2 ML SDV IV SCH ×3 (05:54→21:37)
[2016-12-25] MEDS: BUDESONIDE NEB 0.5 MG/2 ML AMPUL NEB SCH ×2 (08:15→20:22)
[2016-12-25] MEDS: LEVOFLOXACIN 750 MG TABLET PO SCH (09:23)
[2016-12-25] MEDS: NYSTATIN 500000 UNIT/5 ML UDCUP PO SCH ×4 (09:23→21:40)
[2016-12-25] MEDS: DILTIAZEM HCL 180 MG CAPSULE.CR PO SCH ×2 (09:23→21:39)
[2016-12-25] MEDS: DOCUSATE SODIUM 100 MG CAPSULE PO SCH ×2 (09:23→18:50)
[2016-12-25] MEDS: GUAIFENESIN 600 MG TABLET.SA PO SCH ×2 (09:25→21:46)
[2016-12-25] MEDS: FLUTICASONE NASAL SPRAY 50 MCG/SPRY 120 SPRAY/16 GM NASL SCH ×2 (09:25→21:46)
--- NOTE | 2016-12-25 13:23 | PDOC PROGRESS REPORT ---
Subjective Progress Note for:: 12/25/16 Subjective:: Patient is a 66 year old female admitted on 12/21/2016 with COPD exacerbation. Patient was switched to IV Solu-Medrol on 12/22/2016. Patient is still extremely short of breath. Patient is also complaining of bilateral shoulder pain. Physical Exam Vital Signs: Temp Pulse Resp BP Pulse Ox 97.6 F 103 H 20 130/98 H 97 12/25/16 11:15 12/25/16 11:15 12/25/16 11:15 12/25/16 11:15 12/25/16 11:15 Intake & Output 12/24/16 12/25/16 12/26/16 06:59 06:59 06:59 Intake Total 2076 1350 300 Output Total 1500 600 Balance 576 750 300 Weight 88.2 kg 90.9 kg General appearance: PRESENT: obese Head exam: PRESENT: normocephalic Eye exam: PRESENT: EOMI. ABSENT: scleral icterus Ear exam: PRESENT: normal external ear exam Mouth exam: PRESENT: moist Neck exam: ABSENT: carotid bruit, JVD, lymphadenopathy, thyromegaly Respiratory exam: PRESENT: wheezes - Diffuse. ABSENT: tachypnea, unlabored Cardiovascular exam: PRESENT: irregular rhythm. ABSENT: diastolic murmur, systolic murmur Pulses: PRESENT: normal dorsalis pedis pul Vascular exam: PRESENT: normal capillary refill GI/Abdominal exam: PRESENT: normal bowel sounds, soft. ABSENT: distended, guarding, mass, organolmegaly, rebound, tenderness Rectal exam: PRESENT: deferred Extremities exam: PRESENT: full ROM. ABSENT: calf tenderness, clubbing, pedal edema Musculoskeletal exam: PRESENT: other - By the lateral shoulder joint tenderness Neurological exam: PRESENT: alert, awake, oriented to person, oriented to place , oriented to time, oriented to situation, CN II-XII grossly intact. ABSENT: motor sensory deficit Psychiatric exam: PRESENT: appropriate affect, normal mood. ABSENT: homicidal ideation, suicidal ideation Skin exam: PRESENT: dry, intact, warm. ABSENT: cyanosis, rash Results Laboratory Results: 12/22/16 04:59 12/22/16 04:59 Impressions: Chest X-Ray 12/20/16 23:58 IMPRESSION: No acute cardiopulmonary findings. Assessment & Plan - Diagnosis (1) Chronic hypercapnic respiratory failure Is this a current diagnosis for this admission?: Yes Plan: Patient currently on 2L supplemental oxygen maintaining sats in the mid 90s. (2) Acute bronchitis Is this a current diagnosis for this admission?: Yes Plan: Continue Levaquin and IV steroids. (3) COPD exacerbation Is this a current diagnosis for this admission?: Yes Plan: COPD exacerbation due to acute bronchitis. Patient on Levaquin, Solu-Medrol IV with COPD exacerbation along with scheduled nebulizers. Patient continues to have dyspnea with minimal exertion. Patient may require several more days of IV Solu-Medrol with scheduled nebs before clinical improvement is seen. Will order cardiac echo to rule out cardiac etiology as a cause of her dyspnea. (4) Leucocytosis Is this a current diagnosis for this admission?: Yes Plan: Leukocytosis is improved from 17,000-12,000. Patient was most likely having a stress response. However now that patient is on high-dose steroids, she may develop worsening leukocytosis. (5) Tobacco dependence Is this a current diagnosis for this admission?: Yes Plan: Patient counseled on smoking cessation. She reports quitting 3 days before coming into the hospital. (6) Chronic atrial fibrillation Is this a current diagnosis for this admission?: Yes Plan: Still in A. fib with heart rates above 100s at time. This may be worsened by patient acute respiratory status. Predict that once patient COPD exacerbation is treated heart rate will be better controlled. Continue metoprolol IV push 5 mg every 6 as needed for heart rates greater than 100. Patient continued on her diltiazem and anticoagulation with Xarelto. (7) HTN (hypertension) Qualifiers: Hypertension type: essential hypertension Qualified Code(s): I10 - Essential (primary) hypertension Plan: Patient hypotension has improved. Patient still on diltiazem for her A. fib with RVR. Patient Lotensin is still being held. Patient blood pressure may actually improve if her heart rate is regulated. (8) Thrush, oral Plan: Most likely due from receiving high-dose steroids and inhaled steroids. Will encourage. Patient to rinse her mouth out after treatment also will start patient on nystatin swish and swallow swish and spit. - Time Time Spent with patient: Less than 15 minutes Medications reviewed and adjusted accordingly: Yes Anticipated discharge: Home Within: within 72 hours - Inpatient Certification Medical Necessity: Significant Comorbidiites Make Outpatient Treatment Too Risky - Patient still on IV Solu-Medrol. He very short of breath with minimal activity.
[2016-12-25] MEDS ORDERED: MAGNESIUM SULFATE/D5W 1 GM/100 ML RTUPB IV ONE (13:30)
[2016-12-25] MEDS: NAPROXEN 250 MG TABLET PO SCH (18:49)
[2016-12-25] MEDS: RIVAROXABAN 10 MG TABLET PO SCH (18:50)
[2016-12-25] MEDS: ROPINIROLE HCL 1 MG TABLET PO SCH (21:38)
[2016-12-25] MEDS: MONTELUKAST SODIUM 10 MG TABLET PO SCH (21:38)
[2016-12-25] MEDS: CITALOPRAM HYDROBROMIDE 20 MG TABLET PO SCH (21:39)
[2016-12-26] MEDS: LEVALBUTEROL HCL NEB 1.25 MG/3 ML AMPUL NEB SCH ×5 (04:20→19:56)
[2016-12-26] MEDS: LEVOTHYROXINE SODIUM 0.112 MG TABLET PO SCH (06:14)
[2016-12-26] MEDS: METHYLPREDNISOLONE INJ 125 MG/2 ML SDV IV SCH ×3 (06:14→22:06)
[2016-12-26] MEDS: LANSOPRAZOLE 30 MG TAB.RAP.DR PO SCH ×2 (06:14→17:17)
[2016-12-26] MEDS: NAPROXEN 250 MG TABLET PO SCH ×2 (08:03→17:18)
[2016-12-26] MEDS: BUDESONIDE NEB 0.5 MG/2 ML AMPUL NEB SCH ×2 (08:13→19:55)
[2016-12-26] MEDS: NYSTATIN 500000 UNIT/5 ML UDCUP PO SCH ×4 (10:39→22:10)
[2016-12-26] MEDS: DILTIAZEM HCL 180 MG CAPSULE.CR PO SCH ×2 (10:40→22:07)
[2016-12-26] MEDS: DOCUSATE SODIUM 100 MG CAPSULE PO SCH ×2 (10:40→17:15)
[2016-12-26] MEDS: LEVOFLOXACIN 750 MG TABLET PO SCH (10:40)
[2016-12-26] MEDS: GUAIFENESIN 600 MG TABLET.SA PO SCH ×2 (10:41→22:19)
[2016-12-26] MEDS: FLUTICASONE NASAL SPRAY 50 MCG/SPRY 120 SPRAY/16 GM NASL SCH ×2 (10:41→22:19)
--- NOTE | 2016-12-26 12:28 | RADIOLOGY REPORT (SQ) ---
EXAM DESCRIPTION: CHEST PA/LAT COMPLETED DATE/TIME: 12/26/2016 11:52 am REASON FOR STUDY: SOB COMPARISON: CT angio chest 06/03/2016, 05/01/2016 Two-view chest 10/29/2013 EXAM PARAMETERS: NUMBER OF VIEWS: two views TECHNIQUE: Digital Frontal and Lateral radiographic views of the chest acquired. RADIATION DOSE: NA LIMITATIONS: none FINDINGS: LUNGS AND PLEURA: No opacities, masses or pneumothorax. No pleural effusion. MEDIASTINUM AND HILAR STRUCTURES: No masses or contour abnormalities. HEART AND VASCULAR STRUCTURES: Heart normal size. No evidence for failure. BONES: Osteopenic HARDWARE: None in the chest. OTHER: No other significant finding. IMPRESSION: NO SIGNIFICANT RADIOGRAPHIC FINDING IN THE CHEST. TECHNICAL DOCUMENTATION: JOB ID: [id number] [employer]- All Rights Reserved
--- NOTE | 2016-12-26 13:30 | PDOC PROGRESS REPORT ---
Subjective Progress Note for:: 12/26/16 Subjective:: Patient is a 66 year old female admitted on 12/21/2016 with COPD exacerbation. Patient was switched to IV Solu-Medrol on 12/22/2016. Patient is still extremely short of breath although improving gradually. Still complains of shoulder pain. Physical Exam Vital Signs: Temp Pulse Resp BP Pulse Ox 97.6 F 89 18 125/74 96 12/26/16 08:01 12/26/16 12:20 12/26/16 12:20 12/26/16 08:01 12/26/16 12:20 Intake & Output 12/25/16 12/26/16 12/27/16 06:59 06:59 05:59 Intake Total 1350 1162 Output Total 600 Balance 750 1162 Weight 90.9 kg 90.1 kg General appearance: PRESENT: no acute distress, obese Head exam: PRESENT: normocephalic Eye exam: PRESENT: EOMI. ABSENT: scleral icterus Ear exam: PRESENT: normal external ear exam Mouth exam: PRESENT: moist Neck exam: ABSENT: carotid bruit, JVD, lymphadenopathy, thyromegaly Respiratory exam: PRESENT: wheezes. ABSENT: rales, rhonchi, tachypnea, unlabored Cardiovascular exam: PRESENT: RRR. ABSENT: diastolic murmur, rubs, systolic murmur Pulses: PRESENT: normal dorsalis pedis pul Vascular exam: PRESENT: normal capillary refill GI/Abdominal exam: PRESENT: normal bowel sounds, soft. ABSENT: distended, guarding, mass, organolmegaly, rebound, tenderness Rectal exam: PRESENT: deferred Extremities exam: PRESENT: full ROM. ABSENT: calf tenderness, clubbing, pedal edema Neurological exam: PRESENT: alert, awake, oriented to person, oriented to place , oriented to time, oriented to situation, CN II-XII grossly intact. ABSENT: motor sensory deficit Psychiatric exam: PRESENT: appropriate affect, normal mood. ABSENT: homicidal ideation, suicidal ideation Skin exam: PRESENT: dry, intact, warm. ABSENT: cyanosis, rash Results Laboratory Results: 12/22/16 04:59 12/22/16 04:59 Impressions: Chest X-Ray 12/26/16 00:00 IMPRESSION: NO SIGNIFICANT RADIOGRAPHIC FINDING IN THE CHEST. Assessment & Plan - Diagnosis (1) Chronic hypercapnic respiratory failure Is this a current diagnosis for this admission?: Yes Plan: Respiratory status stable on 2 L of supplemental oxygen. Patient maintaining her sats. (2) Acute bronchitis Is this a current diagnosis for this admission?: Yes Plan: Continue Levaquin and IV steroids. (3) COPD exacerbation Is this a current diagnosis for this admission?: Yes Plan: Patient gradually improving. COPD exacerbation due to acute bronchitis. Patient currently on nebs, inhaled steroids, Mucomyst, Solu-Medrol. Repeat chest x-ray showed no acute findings. Awaiting cardiac echo to rule out any possible etiology for her continued dyspnea on exertion. (4) Leucocytosis Is this a current diagnosis for this admission?: Yes Plan: Leukocytosis is improved from 17,000-12,000. Patient was most likely having a stress response. (5) Tobacco dependence Is this a current diagnosis for this admission?: Yes Plan: Patient counseled on smoking cessation. She reports quitting 3 days before coming into the hospital. (6) Chronic atrial fibrillation Is this a current diagnosis for this admission?: Yes Plan: Still in A. fib with heart rates above 100s at time. This may be worsened by patient acute respiratory status. Predict that once patient COPD exacerbation is treated heart rate will be better controlled. Continue metoprolol IV push 5 mg every 6 as needed for heart rates greater than 100. Patient continued on her diltiazem and anticoagulation with Xarelto. (7) HTN (hypertension) Qualifiers: Hypertension type: essential hypertension Qualified Code(s): I10 - Essential (primary) hypertension Plan: Patient hypotension has improved. Patient still on diltiazem for her A. fib with RVR. Patient Lotensin is still being held. Patient blood pressure may actually improve if her heart rate is regulated. (8) Thrush, oral Plan: Most likely due from receiving high-dose steroids and inhaled steroids. Will encourage. Patient to rinse her mouth out after treatment also will start patient on nystatin swish and swallow swish and spit. - Time Time Spent with patient: Less than 15 minutes Anticipated discharge: Home Within: within 72 hours - Inpatient Certification Medical Necessity: Significant Comorbidiites Make Outpatient Treatment Too Risky , Need for IV Antibiotics
[2016-12-26 16:19] LABS: HEMATOCRIT 41.3 % (36.0-47.0); HEMOGLOBIN 13.6 g/dL (12.0-15.5); HGB HCT DIFFERENCE -0.5; MEAN CORPUSCULAR HEMOGLOBIN 30.7 pg (27.0-33.4); MEAN CORPUSCULAR HGB CONC 32.9 g/dL (32.0-36.0); MEAN CORPUSCULAR VOLUME 93 fl (80-97); RED BLOOD COUNT 4.42 10^6/uL (3.72-5.28); WHITE BLOOD COUNT 22.7 10^3/uL (4.0-10.5)
[2016-12-26 16:34] LABS: BASOPHILS % (MANUAL) 0 % (0-2); EOSINOPHILS % (MANUAL) 0 % (0-6); LYMPHOCYTES % (MANUAL) 8 % (13-45); TOTAL CELLS COUNTED 100
[2016-12-26 16:35] LABS: ANISOCYTOSIS SLIGHT; HYPOCHROMASIA SLIGHT
[2016-12-26] MEDS: RIVAROXABAN 10 MG TABLET PO SCH (17:16)
[2016-12-26] MEDS: MONTELUKAST SODIUM 10 MG TABLET PO SCH (22:08)
[2016-12-26] MEDS: ROPINIROLE HCL 1 MG TABLET PO SCH (22:10)
[2016-12-26] MEDS: CITALOPRAM HYDROBROMIDE 20 MG TABLET PO SCH (22:16)
[2016-12-27] MEDS: LEVALBUTEROL HCL NEB 1.25 MG/3 ML AMPUL NEB SCH ×7 (00:19→23:39)
[2016-12-27] MEDS: LANSOPRAZOLE 30 MG TAB.RAP.DR PO SCH ×2 (06:26→17:19)
[2016-12-27] MEDS: LEVOTHYROXINE SODIUM 0.112 MG TABLET PO SCH (06:27)
[2016-12-27] MEDS: METHYLPREDNISOLONE INJ 125 MG/2 ML SDV IV SCH ×3 (06:27→21:18)
[2016-12-27] MEDS: NAPROXEN 250 MG TABLET PO SCH ×2 (07:56→17:20)
[2016-12-27] MEDS: BUDESONIDE NEB 0.5 MG/2 ML AMPUL NEB SCH ×2 (08:25→19:39)
[2016-12-27] MEDS: DOCUSATE SODIUM 100 MG CAPSULE PO SCH ×2 (09:14→17:21)
[2016-12-27] MEDS: DILTIAZEM HCL 180 MG CAPSULE.CR PO SCH ×2 (09:14→21:18)
[2016-12-27] MEDS: NYSTATIN 500000 UNIT/5 ML UDCUP PO SCH ×4 (09:14→21:19)
[2016-12-27] MEDS: LEVOFLOXACIN 750 MG TABLET PO SCH (09:15)
[2016-12-27] MEDS: GUAIFENESIN 600 MG TABLET.SA PO SCH ×2 (09:20→21:18)
[2016-12-27] MEDS: FLUTICASONE NASAL SPRAY 50 MCG/SPRY 120 SPRAY/16 GM NASL SCH ×2 (09:20→21:18)
--- NOTE | 2016-12-27 17:18 | PDOC PROGRESS REPORT ---
Subjective Progress Note for:: 12/27/16 Subjective:: Patient is a 66 year old female admitted on 12/21/2016 with COPD exacerbation. Patient was switched to IV Solu-Medrol on 12/22/2016. Patient has been refusing her Mucinex and her Flonase. Patient states she is still short of breath however it is gradually improving. Physical Exam Vital Signs: Temp Pulse Resp BP Pulse Ox 97.6 F 101 H 18 142/94 H 96 12/27/16 15:54 12/27/16 16:03 12/27/16 16:03 12/27/16 15:54 12/27/16 16:03 Intake & Output 12/26/16 12/27/16 12/28/16 07:59 06:59 06:59 Intake Total Balance Weight General appearance: PRESENT: no acute distress, obese Head exam: PRESENT: normocephalic Eye exam: PRESENT: EOMI. ABSENT: scleral icterus Ear exam: PRESENT: normal external ear exam Mouth exam: PRESENT: moist Neck exam: ABSENT: carotid bruit, JVD, lymphadenopathy, thyromegaly Respiratory exam: PRESENT: prolonged expiratory phas, unlabored, wheezes - diffuse. ABSENT: rales, rhonchi, stridor Cardiovascular exam: PRESENT: irregular rhythm, tachycardia. ABSENT: diastolic murmur, rubs, systolic murmur Pulses: PRESENT: normal dorsalis pedis pul Vascular exam: PRESENT: normal capillary refill GI/Abdominal exam: PRESENT: normal bowel sounds, soft. ABSENT: distended, guarding, mass, organolmegaly, rebound, tenderness Rectal exam: PRESENT: deferred Extremities exam: PRESENT: full ROM. ABSENT: calf tenderness, clubbing, pedal edema Neurological exam: PRESENT: alert, awake, oriented to person, oriented to place , oriented to time, oriented to situation, CN II-XII grossly intact. ABSENT: motor sensory deficit Psychiatric exam: PRESENT: appropriate affect, normal mood. ABSENT: homicidal ideation, suicidal ideation Skin exam: PRESENT: dry, intact, warm. ABSENT: cyanosis, rash Results Laboratory Results: 12/26/16 16:00 12/22/16 04:59 Impressions: Chest X-Ray 12/26/16 00:00 IMPRESSION: NO SIGNIFICANT RADIOGRAPHIC FINDING IN THE CHEST. Assessment & Plan - Diagnosis (1) Chronic hypercapnic respiratory failure Is this a current diagnosis for this admission?: Yes Plan: Respiratory status stable on 2 L of supplemental oxygen. Patient maintaining her sats. Patient de satting into her 80s as she is in her room without her oxygen. She will be evaluated for home oxygen on discharge. (2) Acute bronchitis Is this a current diagnosis for this admission?: Yes Plan: Continue Levaquin and IV steroids. (3) COPD exacerbation Is this a current diagnosis for this admission?: Yes Plan: Patient gradually improving. COPD exacerbation due to acute bronchitis. Patient currently on nebs, inhaled steroids, Mucomyst, Solu-Medrol. Repeat chest x-ray showed no acute findings. Awaiting cardiac echo to rule out any possible etiology for her continued dyspnea on exertion. (4) Leucocytosis Is this a current diagnosis for this admission?: Yes Plan: Leukocytosis due to steroid use. (5) Tobacco dependence Is this a current diagnosis for this admission?: Yes Plan: Patient counseled on smoking cessation. She reports quitting 3 days before coming into the hospital. (6) Chronic atrial fibrillation Is this a current diagnosis for this admission?: Yes Plan: Still in A. fib with heart rates above 100s at time. This may be worsened by patient acute respiratory status. Predict that once patient COPD exacerbation is treated heart rate will be better controlled. Continue metoprolol IV push 5 mg every 6 as needed for heart rates greater than 100. Patient continued on her diltiazem and anticoagulation with Xarelto. (7) HTN (hypertension) Qualifiers: Hypertension type: essential hypertension Qualified Code(s): I10 - Essential (primary) hypertension Plan: Patient hypotension has improved. Patient still on diltiazem for her A. fib with RVR. Patient Lotensin is still being held. Patient blood pressure may actually improve if her heart rate is regulated. (8) Thrush, oral Plan: Most likely due from receiving high-dose steroids and inhaled steroids. Will encourage. Patient to rinse her mouth out after treatment also will start patient on nystatin swish and swallow swish and spit. - Time Time Spent with patient: Less than 15 minutes Smoking Cessation Education: 3 to 10 minutes Medications reviewed and adjusted accordingly: Yes Anticipated discharge: Home Within: within 48 hours - Inpatient Certification Medical Necessity: Significant Comorbidiites Make Outpatient Treatment Too Risky , Need Close Monitoring Due to Risk of Patient Decompensation, Other
[2016-12-27] MEDS: RIVAROXABAN 10 MG TABLET PO SCH (17:19)
[2016-12-27] MEDS: CITALOPRAM HYDROBROMIDE 20 MG TABLET PO SCH (21:18)
[2016-12-27] MEDS: ROPINIROLE HCL 1 MG TABLET PO SCH (21:19)
[2016-12-27] MEDS: MONTELUKAST SODIUM 10 MG TABLET PO SCH (21:19)
[2016-12-28] MEDS: LEVALBUTEROL HCL NEB 1.25 MG/3 ML AMPUL NEB SCH ×3 (03:50→11:51)
[2016-12-28] MEDS: METHYLPREDNISOLONE INJ 125 MG/2 ML SDV IV SCH ×3 (05:27→21:31)
[2016-12-28] MEDS: LANSOPRAZOLE 30 MG TAB.RAP.DR PO SCH ×2 (05:27→18:27)
[2016-12-28] MEDS: LEVOTHYROXINE SODIUM 0.112 MG TABLET PO SCH (05:27)
[2016-12-28] MEDS: BUDESONIDE NEB 0.5 MG/2 ML AMPUL NEB SCH ×2 (07:46→20:02)
[2016-12-28] MEDS: NAPROXEN 250 MG TABLET PO SCH ×2 (08:04→18:27)
[2016-12-28] MEDS: DILTIAZEM HCL 180 MG CAPSULE.CR PO SCH ×2 (09:09→21:25)
[2016-12-28] MEDS: GUAIFENESIN 600 MG TABLET.SA PO SCH (09:10)
[2016-12-28] MEDS: DOCUSATE SODIUM 100 MG CAPSULE PO SCH ×2 (09:10→18:25)
[2016-12-28] MEDS: NYSTATIN 500000 UNIT/5 ML UDCUP PO SCH ×2 (09:10→13:55)
[2016-12-28] MEDS: FLUTICASONE NASAL SPRAY 50 MCG/SPRY 120 SPRAY/16 GM NASL SCH ×2 (09:11→21:27)
[2016-12-28] MEDS ORDERED: SORBITOL 70% SOLUTION 30 ML UDC PO ONE (11:08)
[2016-12-28] MEDS ORDERED: BISACODYL 5 MG TABEC PO ONE (11:08)
[2016-12-28] MEDS ORDERED: POLYETHYLENE GLYCOL 3350 POWDER 17 GM/1 PACKET PO PRN (11:09)
--- NOTE | 2016-12-28 16:08 | RADIOLOGY REPORT (SQ) ---
EXAM DESCRIPTION: CT CHEST WITH COMPLETED DATE/TIME: 12/28/2016 3:35 pm REASON FOR STUDY: SOB COMPARISON: CT angio chest 06/03/2016, 05/01/2016 Chest films 12/26/2016, 12/21/2016, 12/20/2016 TECHNIQUE: CT scan of the chest performed using helical scanning technique with dynamic intravenous contrast injection. Images reviewed with lung, soft tissue and bone windows. Reconstructed coronal and sagittal MPR images reviewed. All images stored on PACS. All CT scanners at this facility use dose modulation, iterative reconstruction, and/or weight based d osing when appropriate to reduce radiation dose to as low as reasonably achievable (ALARA). [facility]: Dose Right [facility]: CareDose [facility]: Dose Right [facility]: Teradose 4D [facility]: JoggleBug CONTRAST TYPE AND DOSE: contrast/concentration: Isovue 370.00 mg/ml; Total Contrast Delivered: 80.0 ml; Total Saline Delivered: 55.0 ml RENAL FUNCTION: Creatinine 0.73 RADIATION DOSE: Up-to-date CT equipment and radiation dose reduction techniques were employed. CTDIv ol: 17.5 mGy. DLP: 707 mGy-cm. . LIMITATIONS: None. FINDINGS: LUNGS AND PLEURA: Few enlarged airspaces in the bilateral upper lobes from centrilobular e mphysema. No acute infiltrates. No pleural effusion. No pneumothorax. HILAR AND MEDIASTINAL STRUCTURES: No identified masses or abnormal nodes. Small hiatal hernia HEART AND VASCULAR STRUCTURES: No aneurysm or dissection. No central pulmonary emboli. No pericardi al effusion. The main pulmonary artery is enlarged, 4 cm in diameter, question pulmonary hypertensio n. Mild coronary artery calcifications. Mild aortic valve calcification. HARDWARE: None in the chest. UPPER ABDOMEN: No significant findings. Limited exam. THYROID AND OTHER SOFT TISSUES: No masses. No adenopathy. BONES: Osteopenic without fracture OTHER: No other significant finding. IMPRESSION: Mild changes of obstructive disease Enlarged main pulmonary artery, worrisome for pulmonary hypertension TECHNICAL DOCUMENTATION: JOB ID: [id number] Quality ID # [id number]: Final reports with documentation of one or more dose reduction techniques (e.g., Au tomated exposure control, adjustment of the mA and/or kV according to patient size, use of iterative reconstruction technique) 2010 [employer]- All Rights Reserved
--- NOTE | 2016-12-28 16:46 | XCELERA REPORT ---
[address] [address] Transthoracic Echocardiogram Report Name: LEVI GIBBONS Age: 66 yrs Gender: Female : 1950 Patient Status: Inpatient Patient Location: [address] [place] [address] Study Date: 12/28/2016 09:38 AM Height: 65 in Weight: 200 lb BSA: 2.0 m2 Procedure: A two-dimensional transthoracic echocardiogram with color flow and Doppler was performed. The study was technically difficult with many images being suboptimal in quality. Study Quality: Technically suboptimal. Reason For Study: Dyspnea History: Dyspnea. Ordering Physician: WENDY APPLE Performed By: Jyotsna Alcala Interpretation Summary The left ventricle is normal in size. There is normal left ventricular wall thickness. LV EF is 65% Left ventricular systolic function is normal. The left ventricular wall motion is normal. There is no thrombus. The right ventricle is not well visualized secondary to technical limitations The right atrium is normal. The left atrium is mildly dilated. There is no evidence of mitral valve prolapse. There is no vegetation seen on the mitral valve. There is no mitral valve stenosis. There is no mitral regurgitation noted. There is Aortic sclerosis without stenosis. There is no LVOT obstruction. No aortic regurgitation is present. There is no tricuspid stenosis. There is a mild amount of tricuspid regurgitation Right ventricular systolic pressure is normal. RVSP is 28 mm of Hg ,wiyh RA mean of 10. There is no pericardial effusion. MMode/2D Measurements & Calculations RVDd: 3.5 cm LVIDd: 5.0 cm FS: 36.2 % Ao root diam: 2.6 cm IVSd: 1.0 cm LVIDs: 3.2 cm EDV(Teich): 119.5 ml LVPWd: 1.0 cm ESV(Teich): 41.1 ml Ao root area: 5.4 cm2 EF(Teich): 65.6 % LA dimension: 4.5 cm Doppler Measurements & Calculations MV E max huyen: MV P1/2t max huyen: Ao V2 max: LV V1 max P.1 cm/sec 107.6 cm/sec 197.6 cm/sec 6.9 mmHg MV P1/2t: 65.4 msec Ao max PG: LV V1 max: 15.6 mmHg 131.3 cm/sec MVA(P1/2t): 3.4 cm2 MV dec slope: 481.6 cm/sec2 MV dec time: 0.20 sec PA V2 max: TR max huyen: 75.5 cm/sec 211.7 cm/sec PA max PG: TR max P.9 mmHg 2.3 mmHg Left Ventricle The left ventricle is normal in size. There is normal left ventricular wall thickness. LV EF is 65%. Left ventricular systolic function is normal. LV diastolic function could not be adequately assessed due to atrial fibrilation. The left ventricular wall motion is normal. There is no thrombus. Right Ventricle The right ventricle is not well visualized secondary to technical limitations. Atria The right atrium is normal. The left atrium is mildly dilated. Mitral Valve There is no evidence of mitral valve prolapse. There is no vegetation seen on the mitral valve. There is no mitral valve stenosis. There is no mitral regurgitation noted. Aortic Valve There is no aortic valvular vegetation. There is Aortic sclerosis without stenosis. There is no LVOT obstruction. No aortic regurgitation is present. Tricuspid Valve There is no tricuspid stenosis. There is a mild amount of tricuspid regurgitation. Right ventricular systolic pressure is normal. RVSP is 28 mm of Hg ,wiyh RA mean of 10. Pulmonic Valve The pulmonic valve is not well visualized. Great Vessels The aortic root is not well visualized but is probably normal size. Effusions There is no pericardial effusion. : WENDY APPLE > Gloria Stephen
[2016-12-28] MEDS: RIVAROXABAN 10 MG TABLET PO SCH (18:25)
[2016-12-28] MEDS: IPRATROPIUM/ALBUTEROL 0.5-2.5 MG/3 ML AMPUL NEB SCH (20:03)
[2016-12-28] MEDS: ROPINIROLE HCL 1 MG TABLET PO SCH (21:26)
[2016-12-28] MEDS: CITALOPRAM HYDROBROMIDE 20 MG TABLET PO SCH (21:27)
[2016-12-28] MEDS: MONTELUKAST SODIUM 10 MG TABLET PO SCH (21:27)
[2016-12-29] MEDS: IPRATROPIUM/ALBUTEROL 0.5-2.5 MG/3 ML AMPUL NEB SCH ×2 (02:01→08:03)
[2016-12-29] MEDS: LEVOTHYROXINE SODIUM 0.112 MG TABLET PO SCH (05:27)
[2016-12-29] MEDS: METHYLPREDNISOLONE INJ 125 MG/2 ML SDV IV SCH (05:28)
[2016-12-29] MEDS: LANSOPRAZOLE 30 MG TAB.RAP.DR PO SCH ×2 (05:28→18:18)
[2016-12-29] MEDS: BUDESONIDE NEB 0.5 MG/2 ML AMPUL NEB SCH (08:03)
[2016-12-29] MEDS: NAPROXEN 250 MG TABLET PO SCH (08:23)
[2016-12-29] MEDS ORDERED: LEVOFLOXACIN 750 MG TABLET PO SCH (10:00)
[2016-12-29] MEDS ORDERED: FLUCONAZOLE 100 MG TABLET PO SCH (10:00)
[2016-12-29] MEDS: DOCUSATE SODIUM 100 MG CAPSULE PO SCH ×2 (10:24→18:19)
[2016-12-29] MEDS: FLUTICASONE NASAL SPRAY 50 MCG/SPRY 120 SPRAY/16 GM NASL SCH ×2 (10:26→21:42)
[2016-12-29] MEDS: DILTIAZEM HCL 180 MG CAPSULE.CR PO SCH ×2 (10:26→21:41)
[2016-12-29] MEDS ORDERED: PREDNISONE 20 MG TABLET PO ONE (11:15)
[2016-12-29 12:07] LABS: ARTERIAL BLOOD BASE EXCESS 8.8 mmol/L; ARTERIAL BLOOD O2 SATURATION 95.2 % (94-98)
[2016-12-29] MEDS: ALBUTEROL SULFATE 0.042% NEB (1.25 MG/3 ML) AMPUL NEB SCH ×2 (14:04→20:04)
[2016-12-29] MEDS: DIGOXIN INJ 0.5 MG/2 ML AMPULE IV SCH ×3 (14:21→21:42)
[2016-12-29 15:26] LABS: ANION GAP 8 (5-19); BLOOD UREA NITROGEN 32 mg/dL (7-20); CALCIUM 8.3 mg/dL (8.4-10.2); CARBON DIOXIDE 32 mmol/L (22-30); CHLORIDE 100 mmol/L (98-107); CREATININE RESULT 0.65 mg/dL (0.52-1.25); GLUCOSE 174 mg/dL (75-110); MAGNESIUM 2.5 mg/dL (1.6-2.3); POTASSIUM 4.3 mmol/L (3.6-5.0); SODIUM 139.8 mmol/L (137-145)
--- NOTE | 2016-12-29 16:44 | PDOC PROGRESS REPORT ---
Subjective Progress Note for:: 12/28/16 Subjective:: Patient is a 66 year old female admitted on 12/21/2016 with COPD exacerbation. Patient was switched to IV Solu-Medrol on 12/22/2016. Patient still short of breath although improving. Patient is worried about her heart rate. Patient would like her mold puller Dr. Mckenna to be contacted. Explained to patient that as long she is COPD exacerbation to her atrial fibrillation may not be well controlled. Also told patient that I will send her for CT for chest and come back and talk to her about her echo results. Physical Exam Vital Signs: Temp Pulse Resp BP Pulse Ox 97.9 F 121 H 18 134/86 H 96 12/29/16 12:10 12/29/16 14:04 12/29/16 14:04 12/29/16 12:10 12/29/16 12:10 Intake & Output 12/28/16 12/29/16 12/30/16 06:59 06:59 06:59 Intake Total 1867 498 0 Output Total 0 Balance 1867 498 0 Weight 91.8 kg 92.2 kg General appearance: PRESENT: no acute distress, obese Head exam: PRESENT: normocephalic Eye exam: PRESENT: EOMI. ABSENT: scleral icterus Mouth exam: PRESENT: moist Neck exam: ABSENT: carotid bruit, JVD, lymphadenopathy, thyromegaly Respiratory exam: PRESENT: unlabored, wheezes. ABSENT: rales, retraction Cardiovascular exam: PRESENT: irregular rhythm. ABSENT: diastolic murmur, rubs , systolic murmur GI/Abdominal exam: PRESENT: normal bowel sounds, soft. ABSENT: distended, guarding, mass, organolmegaly, rebound, tenderness Rectal exam: PRESENT: deferred, other - Rash on right buttock Extremities exam: PRESENT: full ROM. ABSENT: calf tenderness, clubbing, pedal edema Neurological exam: PRESENT: alert, awake, oriented to person, oriented to place , oriented to time, oriented to situation, CN II-XII grossly intact. ABSENT: motor sensory deficit Psychiatric exam: PRESENT: appropriate affect, normal mood. ABSENT: homicidal ideation, suicidal ideation Skin exam: PRESENT: dry, intact, warm. ABSENT: cyanosis, rash Results Laboratory Results: 12/26/16 16:00 12/29/16 14:42 12/29/16 12/29/16 11:50 14:42 Carbonic Acid 1.46 H HCO3/H2CO3 Ratio 23:1 ABG pH 7.46 H ABG pCO2 48.5 H ABG pO2 72.7 L ABG HCO3 34.0 H ABG O2 Saturation 95.2 ABG Base Excess 8.8 FiO2 2L Sodium 139.8 Potassium 4.3 Chloride 100 Carbon Dioxide 32 H Anion Gap 8 BUN 32 H Creatinine 0.65 Est GFR ( Amer) > 60 Est GFR (Non-Af Amer) > 60 Glucose 174 H Calcium 8.3 L Magnesium 2.5 H Impressions: Chest X-Ray 12/26/16 00:00 IMPRESSION: NO SIGNIFICANT RADIOGRAPHIC FINDING IN THE CHEST. Chest CT 12/28/16 00:00 IMPRESSION: Mild changes of obstructive disease Enlarged main pulmonary artery, worrisome for pulmonary hypertension Assessment & Plan - Diagnosis (1) Chronic hypercapnic respiratory failure Is this a current diagnosis for this admission?: Yes Plan: Respiratory status stable on 2 L of supplemental oxygen. Patient maintaining her sats. Patient will need a 6 minute walk test prior to discharge home to see if she qualifies for home oxygen. However, patient desats into the 80s with removal O2 while in her room which may be enough to qualify her. (2) COPD exacerbation Is this a current diagnosis for this admission?: Yes Plan: Patient gradually improving. COPD exacerbation due to acute bronchitis. Patient currently on nebs, inhaled steroids, Mucomyst, Solu-Medrol. Repeat chest x-ray showed no acute findings. Echo is essentially normal. RVSP is not elevated. CT of the chest without any pulmonary embolism or other acute findings. (3) Leucocytosis Is this a current diagnosis for this admission?: Yes Plan: Leukocytosis due to steroid use. (4) Tobacco dependence Is this a current diagnosis for this admission?: Yes Plan: Patient counseled on smoking cessation. She reports quitting 3 days before coming into the hospital. (5) Chronic atrial fibrillation Is this a current diagnosis for this admission?: Yes Plan: Still in A. fib with heart rates above 100s at time. This may be worsened by patient acute respiratory status. Predict that once patient COPD exacerbation is treated heart rate will be better controlled. Continue metoprolol IV push 5 mg every 6 as needed for heart rates greater than 100. Patient continued on her diltiazem and anticoagulation with Xarelto. Diltiazem cannot be increase as patient blood pressures are low normal and may not be able to tolerate the increase. (6) HTN (hypertension) Qualifiers: Hypertension type: essential hypertension Qualified Code(s): I10 - Essential (primary) hypertension Plan: Patient hypotension has improved. Patient still on diltiazem for her A. fib with RVR. Patient Lotensin is still being held. Patient blood pressure may actually improve if her heart rate is regulated. (7) Thrush, oral Plan: Most likely due from receiving high-dose steroids and inhaled steroids. Will encourage. Patient to rinse her mouth out after treatment also will start patient on nystatin swish and swallow swish and spit. - Time Time Spent with patient: 15-24 minutes Anticipated discharge: Home Within: within 72 hours - Inpatient Certification Medical Necessity: Significant Comorbidiites Make Outpatient Treatment Too Risky
--- NOTE | 2016-12-29 17:02 | PDOC PROGRESS REPORT ---
Subjective Progress Note for:: 12/29/16 Subjective:: Patient is a 66 year old female admitted on 12/21/2016 with COPD exacerbation. Patient was switched to IV Solu-Medrol on 12/22/2016. Patient still short of breath although improving. Patient is worried about her heart rate. Patient actually sounds better feels better today. Patient states though she is extremely short of breath with minimal activity. Patient states she is fine as long as she doesn't move. Physical Exam Vital Signs: Temp Pulse Resp BP Pulse Ox 98.0 F 93 18 119/94 H 96 12/29/16 15:42 12/29/16 15:42 12/29/16 15:42 12/29/16 15:42 12/29/16 15:42 Intake & Output 12/28/16 12/29/16 12/30/16 06:59 06:59 06:59 Intake Total 1867 498 0 Output Total 0 Balance 1867 498 0 Weight 91.8 kg 92.2 kg General appearance: PRESENT: no acute distress, obese Head exam: PRESENT: normocephalic Eye exam: PRESENT: EOMI. ABSENT: scleral icterus Ear exam: PRESENT: normal external ear exam Mouth exam: PRESENT: moist Neck exam: ABSENT: carotid bruit, JVD, lymphadenopathy, thyromegaly Respiratory exam: PRESENT: clear to auscultation armand. ABSENT: rales, rhonchi, wheezes Cardiovascular exam: PRESENT: RRR. ABSENT: diastolic murmur, rubs, systolic murmur Vascular exam: PRESENT: normal capillary refill GI/Abdominal exam: PRESENT: normal bowel sounds, soft. ABSENT: distended, guarding, mass, organolmegaly, rebound, tenderness Rectal exam: PRESENT: deferred Extremities exam: PRESENT: full ROM. ABSENT: calf tenderness, clubbing, pedal edema Neurological exam: PRESENT: alert, awake, oriented to person, oriented to place , oriented to time, oriented to situation, CN II-XII grossly intact. ABSENT: motor sensory deficit Psychiatric exam: PRESENT: appropriate affect, normal mood. ABSENT: homicidal ideation, suicidal ideation Skin exam: PRESENT: dry, intact, warm. ABSENT: cyanosis, rash Results Laboratory Results: 12/26/16 16:00 12/29/16 14:42 12/29/16 12/29/16 11:50 14:42 Carbonic Acid 1.46 H HCO3/H2CO3 Ratio 23:1 ABG pH 7.46 H ABG pCO2 48.5 H ABG pO2 72.7 L ABG HCO3 34.0 H ABG O2 Saturation 95.2 ABG Base Excess 8.8 FiO2 2L Sodium 139.8 Potassium 4.3 Chloride 100 Carbon Dioxide 32 H Anion Gap 8 BUN 32 H Creatinine 0.65 Est GFR ( Amer) > 60 Est GFR (Non-Af Amer) > 60 Glucose 174 H Calcium 8.3 L Magnesium 2.5 H Impressions: Chest X-Ray 12/26/16 00:00 IMPRESSION: NO SIGNIFICANT RADIOGRAPHIC FINDING IN THE CHEST. Chest CT 12/28/16 00:00 IMPRESSION: Mild changes of obstructive disease Enlarged main pulmonary artery, worrisome for pulmonary hypertension Assessment & Plan - Diagnosis (1) Acute respiratory failure with hypoxia and hypercapnia Plan: He does not normally wear oxygen at home. Patient hypoxic in the 70s on ABG. Patient mildly hypercapnic on ABGs. Patient requires supplemental oxygen while in the hospital or as she desats in the 80s when off. Patient will need a 6 minute walk test prior to discharge. Bedside PFT ordered. Patient case discussed with Dr. Shea, pulmonology. Will have patient follow-up with him on discharge. (2) COPD exacerbation Is this a current diagnosis for this admission?: Yes Plan: Patient gradually improving. COPD exacerbation due to acute bronchitis. On further review, patient has grown Pseudomonas in her sputum before. Will start patient on Tobra nebs along with albuterol. Will discontinue her budesonide. Will wean her steroids to oral steroids. Will discontinue Levaquin. Explained to patient that Tobra nebs can be given at home and she does not have to stay in hospital for the duration of treatment which could be 5-[address] scan of the chest did not show any acute findings. Cardiac echo was normal. (3) Leucocytosis Is this a current diagnosis for this admission?: Yes Plan: Leukocytosis due to steroid use. Will check CBC in the morning. Leukocytosis should be resolving with the weaning of steroids. (4) Tobacco dependence Is this a current diagnosis for this admission?: Yes Plan: Patient counseled on smoking cessation. She reports quitting 3 days before coming into the hospital. Advised patient that she will continue to have COPD exacerbations as long as she continues to smoke. (5) Chronic atrial fibrillation Is this a current diagnosis for this admission?: Yes Plan: Still in A. fib with heart rates above 100s at time. This may be worsened by patient acute respiratory status. Predict that once patient COPD exacerbation is treated heart rate will be better controlled. Continue metoprolol IV push 5 mg every 6 as needed for heart rates greater than 100. Patient continued on her diltiazem and anticoagulation with Xarelto. Diltiazem cannot be increase as patient blood pressures are low normal and may not be able to tolerate the increase. Did contact patient's clinic charge nurse Dr. Mckenna per patient's request. He did not recommend any changes other than loading percent patient with digoxin which was already started. He did suggest increasing her diltiazem but as stated before her blood pressure may not tolerate. He would like to see patient upon discharge. (6) HTN (hypertension) Qualifiers: Hypertension type: essential hypertension Qualified Code(s): I10 - Essential (primary) hypertension Plan: Patient hypotension has improved. Patient still on diltiazem for her A. fib with RVR. Patient Lotensin is still being held. Patient blood pressure may actually improve if her heart rate is regulated. (7) Thrush, oral Plan: Most likely due from receiving high-dose steroids and inhaled steroids. Will encourage. Patient to rinse her mouth out after treatment also will start patient on nystatin swish and swallow swish and spit. (8) Obesity (BMI 30.0-34.9) Is this a current diagnosis for this admission?: Yes Plan: The patient on the importance of weight loss with proper diet and activity. Explained to patient that this may help improve her respiratory status and prevent her from developing other comorbidities such as diabetes, hypertension and CAD. - Time Time Spent with patient: 15-24 minutes Medications reviewed and adjusted accordingly: Yes Anticipated discharge: Home Within: within 72 hours - Inpatient Certification Medical Necessity: Need Close Monitoring Due to Risk of Patient Decompensation
[2016-12-29] MEDS ORDERED: NORMAL SALINE 500 ML IV PRN (17:05)
[2016-12-29] MEDS: RIVAROXABAN 10 MG TABLET PO SCH (18:18)
[2016-12-29] MEDS: TOBRAMYCIN SULFATE NEB 40 MG/ML 30 ML NEB SCH (20:04)
[2016-12-29] MEDS: ROPINIROLE HCL 1 MG TABLET PO SCH (21:40)
[2016-12-29] MEDS: CITALOPRAM HYDROBROMIDE 20 MG TABLET PO SCH (21:40)
[2016-12-29] MEDS: MONTELUKAST SODIUM 10 MG TABLET PO SCH (21:40)
[2016-12-29] MEDS ORDERED: ALBUTEROL SULFATE 0.042% NEB (1.25 MG/3 ML) AMPUL NEB SCH (22:00)
[2016-12-30] MEDS: LEVALBUTEROL HCL NEB 1.25 MG/3 ML AMPUL NEB SCH ×3 (01:45→20:36)
[2016-12-30] MEDS: DIGOXIN INJ 0.5 MG/2 ML AMPULE IV SCH (02:40)
[2016-12-30 05:00] LABS: HEMATOCRIT 35.6 % (36.0-47.0); HEMOGLOBIN 11.7 g/dL (12.0-15.5); HGB HCT DIFFERENCE -0.5; MEAN CORPUSCULAR HEMOGLOBIN 30.6 pg (27.0-33.4); MEAN CORPUSCULAR HGB CONC 32.8 g/dL (32.0-36.0); MEAN CORPUSCULAR VOLUME 93 fl (80-97); RED BLOOD COUNT 3.81 10^6/uL (3.72-5.28); RED CELL DISTRIBUTION WIDTH 14.9 % (11.5-14.0)
[2016-12-30] MEDS: LANSOPRAZOLE 30 MG TAB.RAP.DR PO SCH ×2 (05:36→16:11)
[2016-12-30] MEDS: LEVOTHYROXINE SODIUM 0.112 MG TABLET PO SCH (05:36)
[2016-12-30 05:40] LABS: ANISOCYTOSIS SLIGHT; BAND NEUTROPHILS % (MANUAL) 7 % (3-5); BASOPHILS % (MANUAL) 0 % (0-2); EOSINOPHILS % (MANUAL) 0 % (0-6); LYMPHOCYTES % (MANUAL) 13 % (13-45); PLATELET CLUMPS PRESENT; SCHISTOCYTES SLIGHT; TOTAL CELLS COUNTED 100; TOXIC GRANULATION SLIGHT
[2016-12-30 05:41] LABS: POLYCHROMASIA SLIGHT
[2016-12-30 05:47] LABS: WHITE BLOOD COUNT 39.5 10^3/uL (4.0-10.5)
[2016-12-30] MEDS: TOBRAMYCIN SULFATE NEB 40 MG/ML 30 ML NEB SCH ×2 (07:51→20:36)
[2016-12-30] MEDS: ALBUTEROL SULFATE 0.042% NEB (1.25 MG/3 ML) AMPUL NEB SCH ×2 (07:52→19:52)
[2016-12-30] MEDS ORDERED: METOPROLOL SUCCINATE 25 MG TAB.SR.24H PO SCH (10:00)
[2016-12-30] MEDS ORDERED: PREDNISONE 20 MG TABLET PO SCH (10:00)
[2016-12-30] MEDS: DOCUSATE SODIUM 100 MG CAPSULE PO SCH ×2 (10:23→17:19)
[2016-12-30] MEDS: PREDNISONE 20 MG TABLET PO SCH (10:24)
[2016-12-30] MEDS: DIGOXIN 0.125 MG TABLET PO SCH (10:24)
[2016-12-30] MEDS: DILTIAZEM HCL 180 MG CAPSULE.CR PO SCH ×2 (10:24→22:19)
[2016-12-30] MEDS: FLUTICASONE NASAL SPRAY 50 MCG/SPRY 120 SPRAY/16 GM NASL SCH ×2 (10:25→22:19)
--- NOTE | 2016-12-30 10:55 | PDOC PROGRESS REPORT ---
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 On presentation to the ER she was noted to be hypoxic with O2 sats 80% and tachypneic and tachycardic. She had a CT chest 01/07 without infiltrates rather chronic COPD changes. Echocardiogram with EF of 65% and RSVP within range but CT chest with findings concerning for pulmonary hypertension. Seen and examined this morning, she reports no changes from her breathing. Denies fever and chills. Continues to require O2 and on 2 L NC. Physical Exam Vital Signs: Temp Pulse Resp BP Pulse Ox 98.0 F 91 18 145/93 H 97 12/30/16 07:44 12/30/16 07:52 12/30/16 07:52 12/30/16 07:44 12/30/16 07:52 Intake & Output 12/29/16 12/30/16 12/31/16 06:59 06:59 06:59 Intake Total 498 1269 Output Total 0 Balance 498 1269 Weight 92.2 kg 92.8 kg General appearance: PRESENT: no acute distress, obese, other - Looks older than stated age Head exam: PRESENT: atraumatic, normocephalic Eye exam: PRESENT: conjunctiva pink, EOMI. ABSENT: scleral icterus Mouth exam: PRESENT: moist, tongue midline Neck exam: PRESENT: carotid bruit, lymphadenopathy. ABSENT: JVD, thyromegaly Respiratory exam: PRESENT: decreased breath sounds. ABSENT: rales, rhonchi, wheezes Cardiovascular exam: PRESENT: irregular rhythm. ABSENT: diastolic murmur, rubs , systolic murmur Pulses: PRESENT: normal dorsalis pedis pul Vascular exam: PRESENT: normal capillary refill GI/Abdominal exam: PRESENT: normal bowel sounds, soft. ABSENT: distended, guarding, mass, organolmegaly, rebound, tenderness Rectal exam: PRESENT: deferred Extremities exam: PRESENT: full ROM. ABSENT: calf tenderness, clubbing, pedal edema Neurological exam: PRESENT: alert, awake, oriented to person, oriented to place , oriented to time, oriented to situation. ABSENT: motor sensory deficit Psychiatric exam: PRESENT: appropriate affect, normal mood. ABSENT: homicidal ideation, suicidal ideation Skin exam: PRESENT: dry, intact, warm. ABSENT: cyanosis, rash Results Laboratory Results: 12/30/16 04:07 12/29/16 14:42 12/29/16 12/29/16 12/30/16 11:50 14:42 04:07 WBC 39.5 H* RBC 3.81 Hgb 11.7 L Hct 35.6 L MCV 93 MCH 30.6 MCHC 32.8 RDW 14.9 H Plt Count 257 Seg Neutrophils % Not Reportable Lymphocytes % Not Reportable Monocytes % Not Reportable Eosinophils % Not Reportable Basophils % Not Reportable Absolute Neutrophils Not Reportable Absolute Lymphocytes Not Reportable Absolute Monocytes Not Reportable Absolute Eosinophils Not Reportable Absolute Basophils Not Reportable Carbonic Acid 1.46 H HCO3/H2CO3 Ratio 23:1 ABG pH 7.46 H ABG pCO2 48.5 H ABG pO2 72.7 L ABG HCO3 34.0 H ABG O2 Saturation 95.2 ABG Base Excess 8.8 FiO2 2L Sodium 139.8 Potassium 4.3 Chloride 100 Carbon Dioxide 32 H Anion Gap 8 BUN 32 H Creatinine 0.65 Est GFR ( Amer) > 60 Est GFR (Non-Af Amer) > 60 Glucose 174 H Calcium 8.3 L Magnesium 2.5 H Impressions: Chest X-Ray 12/26/16 00:00 IMPRESSION: NO SIGNIFICANT RADIOGRAPHIC FINDING IN THE CHEST. Chest CT 12/28/16 00:00 IMPRESSION: Mild changes of obstructive disease Enlarged main pulmonary artery, worrisome for pulmonary hypertension Assessment & Plan - Diagnosis (1) Acute respiratory failure with hypoxia and hypercapnia Is this a current diagnosis for this admission?: Yes Plan: Likely secondary to acute on chronic COPD exacerbation She continued to require O2 and plan for home O2 assessment On p.o. prednisone Continue oxygen and bronchodilator therapy Encourage smoking cessation (2) COPD exacerbation Is this a current diagnosis for this admission?: Yes Plan: Plan as above Continue bronchodilator and oxygen therapy Smoking cessation Likely will require home O2 (3) Leucocytosis Qualifiers: Leukocytosis type: unspecified Qualified Code(s): D72.829 - Elevated white blood cell count, unspecified Is this a current diagnosis for this admission?: Yes Plan: Chronic leukocytosis Does not appear to be septic and afebrile Likely in part due to steroid Monitoring fever curve and CBC in the morning (4) Obesity (BMI 30.0-34.9) Is this a current diagnosis for this admission?: Yes Plan: Caloric controlled diet (5) Tobacco dependence Is this a current diagnosis for this admission?: Yes Plan: Smoking cessation encouraged We may need to add nicotine replacement (6) HTN (hypertension) Qualifiers: Hypertension type: essential hypertension Qualified Code(s): I10 - Essential (primary) hypertension Is this a current diagnosis for this admission?: Yes Plan: Blood pressure not optimal Currently on Cardizem and resume her home [id number] Follow up (7) Atrial fibrillation Qualifiers: Atrial fibrillation type: chronic Qualified Code(s): I48.2 - Chronic atrial fibrillation Plan: HR still not controlled Continue Cardizem and digoxin added Follow up (8) Hypothyroidism Qualifiers: Hypothyroidism type: unspecified Qualified Code(s): E03.9 - Hypothyroidism , unspecified Is this a current diagnosis for this admission?: Yes Plan: Continue Synthroid - Time Time Spent with patient: 15-24 minutes Smoking Cessation Education: 3 to 10 minutes Medications reviewed and adjusted accordingly: Yes Anticipated discharge: Home Within: within 24 hours
[2016-12-30] MEDS ORDERED: LISINOPRIL 10 MG TABLET PO ONE (12:00)
[2016-12-30 14:27] LABS: PATH REVIEW PATHOLOGIST REVIEWED
[2016-12-30] MEDS: RIVAROXABAN 10 MG TABLET PO SCH (17:19)
[2016-12-30] MEDS: ROPINIROLE HCL 1 MG TABLET PO SCH (22:19)
[2016-12-30] MEDS: MONTELUKAST SODIUM 10 MG TABLET PO SCH (22:20)
[2016-12-30] MEDS: CITALOPRAM HYDROBROMIDE 20 MG TABLET PO SCH (22:20)
[2016-12-31 05:08] LABS: HEMATOCRIT 34.9 % (36.0-47.0); HEMOGLOBIN 11.6 g/dL (12.0-15.5); HGB HCT DIFFERENCE -0.1; MEAN CORPUSCULAR HEMOGLOBIN 31.2 pg (27.0-33.4); MEAN CORPUSCULAR HGB CONC 33.3 g/dL (32.0-36.0); MEAN CORPUSCULAR VOLUME 94 fl (80-97); RED BLOOD COUNT 3.72 10^6/uL (3.72-5.28); RED CELL DISTRIBUTION WIDTH 15.5 % (11.5-14.0)
[2016-12-31 05:51] LABS: BAND NEUTROPHILS % (MANUAL) 4 % (3-5); BASOPHILS % (MANUAL) 0 % (0-2); EOSINOPHILS % (MANUAL) 0 % (0-6); LYMPHOCYTES % (MANUAL) 15 % (13-45); TOTAL CELLS COUNTED 100; TOXIC GRANULATION 1+
[2016-12-31 05:54] LABS: ACANTHOCYTES SLIGHT; ANISOCYTOSIS SLIGHT; OVALOCYTES SLIGHT; POIKILOCYTOSIS 1+; POLYCHROMASIA SLIGHT
[2016-12-31 05:58] LABS: WHITE BLOOD COUNT 35.7 10^3/uL (4.0-10.5)
[2016-12-31] MEDS: LANSOPRAZOLE 30 MG TAB.RAP.DR PO SCH ×2 (06:30→16:49)
[2016-12-31] MEDS: LEVOTHYROXINE SODIUM 0.112 MG TABLET PO SCH (06:30)
[2016-12-31] MEDS: ALBUTEROL SULFATE 0.042% NEB (1.25 MG/3 ML) AMPUL NEB SCH (07:43)
[2016-12-31] MEDS: TOBRAMYCIN SULFATE NEB 40 MG/ML 30 ML NEB SCH (07:44)
[2016-12-31] MEDS: LEVALBUTEROL HCL NEB 1.25 MG/3 ML AMPUL NEB SCH ×2 (07:44→13:39)
--- NOTE | 2016-12-31 08:06 | PULMONARY FUNCTION TEST ---
DATE OF SERVICE: 12/30/2016 THE VITAL CAPACITY IS SEVERELY DECREASED. THE EXPIRATORY FLOW RATES ARE SEVERELY DECREASED. THE FEV1/VC IS 67%, PREDICTED: 76% IMPRESSION: GOOD PATIENT EFFORT. SEVERE OBSTRUCTIVE DEFECT. CC: WENDY APPLE MD > MAGGIE
[2016-12-31] MEDS ORDERED: LISINOPRIL 10 MG TABLET PO SCH (10:00)
[2016-12-31] MEDS: FLUTICASONE NASAL SPRAY 50 MCG/SPRY 120 SPRAY/16 GM NASL SCH (10:10)
[2016-12-31] MEDS: DOCUSATE SODIUM 100 MG CAPSULE PO SCH (10:10)
[2016-12-31] MEDS: DILTIAZEM HCL 180 MG CAPSULE.CR PO SCH (10:10)
[2016-12-31] MEDS: PREDNISONE 20 MG TABLET PO SCH (10:11)
[2016-12-31] MEDS: DIGOXIN 0.125 MG TABLET PO SCH (10:11)
--- NOTE | 2016-12-31 13:54 | PDOC DISCHARGE SUMMARY ---
General - Admit/Disc Date/PCP Admission Date/Primary Care Provider: 12/21/16 16:24 AGUSTO AGRAWAL, Discharge Date: 12/31/16 - Discharge Diagnosis (1) Acute respiratory failure with hypoxia and hypercapnia Is this a current diagnosis for this admission?: Yes (2) COPD exacerbation Is this a current diagnosis for this admission?: Yes (3) Leucocytosis Is this a current diagnosis for this admission?: Yes (4) Obesity (BMI 30.0-34.9) Is this a current diagnosis for this admission?: Yes (5) Tobacco dependence Is this a current diagnosis for this admission?: Yes (6) HTN (hypertension) Is this a current diagnosis for this admission?: Yes (7) Atrial fibrillation Is this a current diagnosis for this admission?: Yes (8) Hypothyroidism Is this a current diagnosis for this admission?: Yes (9) Myelodysplasia (myelodysplastic syndrome) Is this a current diagnosis for this admission?: Yes - Additional Information Resuscitation Status: Full Code Discharge Diet: Cardiac Discharge Activity: Activity As Tolerated Home Medications: Apixaban [Eliquis 5 mg Tablet] 5 mg PO BID 12/21/16 Budesonide/Formoterol Fumarate [Symbicort HFA 160-4.5 mcg Inhaler 6 gm] 2 puff IH Q12 12/21/16 Diltiazem HCl [Diltiazem ER] 180 mg PO BID 12/21/16 Ferrous Sulfate 325 mg PO DAILY 12/21/16 Levothyroxine Sodium [Synthroid 0.112 mg Tablet] 1 tab PO DAILY 12/21/16 Rivaroxaban [Xarelto] 20 mg PO QPM 12/21/16 Ropinirole HCl [Requip] 1 mg PO QHS 12/21/16 Benazepril HCl [Lotensin 20 mg Tablet] 20 mg PO DAILY 12/22/16 Citalopram Hydrobromide [Celexa 20 mg Tablet] 20 mg PO QHS 12/22/16 Citalopram Hydrobromide [Celexa 40 mg Tablet] 40 mg PO QAM 12/22/16 Digoxin [Lanoxin 0.125 mg Tablet] 0.125 mg PO DAILY #30 tablet 12/31/16 Montelukast Sodium [Singulair 10 mg Tablet] 10 mg PO QHS #30 tablet 12/31/16 Prednisone [Deltasone 20 mg Tablet] 20 mg PO DAILY #5 tablet 12/31/16 History of Present Illness History of Present Illness: LEVI GIBBONS is a 66 year old female Hospital Course Hospital Course: 66-year-old woman with history of chronic atrial fibrillation COPD chronic bronchitis, persistent leukocytosis admitted on December 21, 2016 worsening shortness of breath associated with cough. On presentation to the ER she was noted to be hypoxic with O2 sats 80% and tachypneic and tachycardic. She had a CT chest 01/07 without infiltrates rather chronic COPD changes. She was started on IV antibiotic and steroids. Completed antibiotic and has been weaned to PO steroids. Her wbc increased to 39 K and trendedn down on discharge. She does have a history of myelodysplasia syndrome and has been follow-up with oncology. Her echocardiogram with EF of 65% and RSVP within range but CT chest with findings concerning for pulmonary hypertension. She has not been able to be weaned off O2. She was assessed for home O2 and she will require oxygen on discharge. Also this admission she did have evidence of atrial fibrillation with RVR. 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 Her rate is much better control. And she was also continued anticoagulation. Case management is on board to set up home O2. She is being discharged home with a tapered prednisone and new prescription given for digoxin. She will need to follow with PCP and cardiology. Physical Exam Vital Signs: Temp Pulse Resp BP Pulse Ox 97.6 F 92 18 118/81 100 12/31/16 07:47 12/31/16 07:47 12/31/16 07:47 12/31/16 07:47 12/31/16 07:47 Intake & Output 12/30/16 12/31/16 01/01/17 06:59 06:59 06:59 Intake Total 1269 913 Balance 1269 913 Weight 92.8 kg 93.7 kg General appearance: PRESENT: no acute distress, other - Looks older than stated age Head exam: PRESENT: atraumatic, normocephalic Eye exam: PRESENT: conjunctiva pink, EOMI. ABSENT: scleral icterus Mouth exam: PRESENT: moist, tongue midline Respiratory exam: PRESENT: decreased breath sounds, symmetrical. ABSENT: accessory muscle use, rales, rhonchi, wheezes Cardiovascular exam: PRESENT: RRR. ABSENT: diastolic murmur, rubs, systolic murmur Vascular exam: PRESENT: normal capillary refill GI/Abdominal exam: PRESENT: normal bowel sounds, soft. ABSENT: distended, guarding, mass, organolmegaly, rebound, tenderness Rectal exam: PRESENT: deferred Extremities exam: PRESENT: full ROM. ABSENT: calf tenderness, clubbing, pedal edema Neurological exam: PRESENT: alert, awake, oriented to person, oriented to place , oriented to time, oriented to situation. ABSENT: motor sensory deficit Psychiatric exam: PRESENT: appropriate affect, normal mood. ABSENT: homicidal ideation, suicidal ideation Skin exam: PRESENT: dry, intact, rash, warm. ABSENT: cyanosis Results Laboratory Results: 12/31/16 04:00 12/29/16 14:42 12/31/16 04:00 WBC 35.7 H* RBC 3.72 Hgb 11.6 L Hct 34.9 L MCV 94 MCH 31.2 MCHC 33.3 RDW 15.5 H Plt Count 242 Seg Neutrophils % Not Reportable Lymphocytes % Not Reportable Monocytes % Not Reportable Eosinophils % Not Reportable Basophils % Not Reportable Absolute Neutrophils Not Reportable Absolute Lymphocytes Not Reportable Absolute Monocytes Not Reportable Absolute Eosinophils Not Reportable Absolute Basophils Not Reportable Impressions: Chest X-Ray 12/26/16 00:00 IMPRESSION: NO SIGNIFICANT RADIOGRAPHIC FINDING IN THE CHEST. Chest CT 12/28/16 00:00 IMPRESSION: Mild changes of obstructive disease Enlarged main pulmonary artery, worrisome for pulmonary hypertension Plan Time Spent: Greater than 30 Minutes
[2016-12-31 17:37] VITALS: BP 109/69
== END 2016-12-31 17:37 | disposition home or self-care (01) | DRG 190 ==
LOC: ER 23:21 → EH 12-21 01:56 → UNDOADMOB 12-21 02:20 → EH 12-21 02:20 → 3N 12-21 04:28 → OBSVTOIN 12-21 16:24 → 3N 12-27 18:38
PROVIDERS: ADMIT Internal Medicine; ATTEND Internal Medicine
PROC: 5A09457 Assistance with Respiratory Ventilation, 24-96 Consecutive Hours, Continuous Positive Airway Pressure (ICD-10-PCS; principal; 2016-12-21)
PROC: 3E0F73Z Introduction of Anti-inflammatory into Respiratory Tract, Via Natural or Artificial Opening (ICD-10-PCS; 2016-12-23)
PROC: 3E0234Z Introduction of Serum, Toxoid and Vaccine into Muscle, Percutaneous Approach (ICD-10-PCS; 2016-12-31)
DX: J44.1 Chronic obstructive pulmonary disease with (acute) exacerbation (principal); J96.01 Acute respiratory failure with hypoxia; J96.02 Acute respiratory failure with hypercapnia; B37.0 Candidal stomatitis; J20.9 Acute bronchitis, unspecified; J44.0 Chronic obstructive pulmonary disease with (acute) lower respiratory infection; Z68.34 Body mass index [BMI] 34.0-34.9, adult; E66.9 Obesity, unspecified; I10 Essential (primary) hypertension; I48.2 Chronic atrial fibrillation; E03.9 Hypothyroidism, unspecified; D46.9 Myelodysplastic syndrome, unspecified; K21.9 Gastro-esophageal reflux disease without esophagitis; M19.90 Unspecified osteoarthritis, unspecified site; F32.9 Major depressive disorder, single episode, unspecified; F17.210 Nicotine dependence, cigarettes, uncomplicated; I27.20 Pulmonary hypertension, unspecified; Z23 Encounter for immunization; Z79.899 Other long term (current) drug therapy; Z99.81 Dependence on supplemental oxygen; Z86.711 Personal history of pulmonary embolism; Z90.710 Acquired absence of both cervix and uterus; Z88.6 Allergy status to analgesic agent; Z83.6 Family history of other diseases of the respiratory system
CPT/HCPCS: 36415; 36600; 71010; 71020; 71260; 80048; 80053; 81001; 82803; 83605; 83735; 83880; 85025; 87040; 90686; 93005; 93010; 93306; 94010; 94640; 94667; 94668; 94799; 96365; 96375; 99285; G0378; J1160; J1956; J2405; J2930; J3475; J3490; J7040; J7512; J7620; J7685

== ENCOUNTER 2017-02-10 08:17 | Day surgery (SDC) | payer MEDICARE, BC ==
[~2017-02-10 08:17] MED LIST: CHONDR SU A NA/HYALUR INTRAOC KIT (SURGICARE) ONE; EPINEPHRINE INJ/PF 1 MG/1 ML AMPULE ONE; KETOROLAC TROMETHAMINE 0.45% 4 DROP/0.4 ML DROPERETTE OD PRN; LIDOCAINE 1% INJ-PF (10 MG/ML) 30 ML SDV ONE; TOBRAMYCIN SULFATE/DEXAMETH OPH OINTMENT 3.5 GM ONE
[2017-02-10] MEDS ORDERED: ALBUTEROL SULFATE 0.083% NEB 2.5 MG/3 ML AMPUL NEB ONE (08:43)
[2017-02-10] MEDS: TROPICAMIDE 1% OPH SOLN 3 ML OD PRN ×3 (08:45→09:05)
[2017-02-10] MEDS: CYCLOPENTOLATE 0.2%/PHENYLEPHRINE 1% OPH SOLN 2 ML OD PRN ×3 (08:45→09:05)
[2017-02-10] MEDS: TETRACAINE HCL 0.5% OPH SOLN 0.6 ML DROPERETTE OD PRN ×3 (08:46→09:09)
[2017-02-10] MEDS: BESIFLOXACIN HCL 0.6% OPH SUSP 5 ML BOTTLE OD PRN ×3 (08:46→09:31)
[2017-02-10] MEDS ORDERED: MIDAZOLAM 2 MG/2 ML INJ ONE (09:05)
== END 2017-02-10 10:13 | disposition home or self-care (01) ==
LOC: SC 08:17
PROVIDERS: ATTEND Ophthalmology
PROC: 08RJ3JZ Replacement of Right Lens with Synthetic Substitute, Percutaneous Approach (ICD-10-PCS; principal; 2017-02-10 09:00)
DX: H25.11 Age-related nuclear cataract, right eye (principal); M19.90 Unspecified osteoarthritis, unspecified site; I10 Essential (primary) hypertension; E03.9 Hypothyroidism, unspecified; F17.210 Nicotine dependence, cigarettes, uncomplicated; J44.9 Chronic obstructive pulmonary disease, unspecified; I48.91 Unspecified atrial fibrillation; Z79.899 Other long term (current) drug therapy; Z88.5 Allergy status to narcotic agent; Z99.81 Dependence on supplemental oxygen; Z79.01 Long term (current) use of anticoagulants
CPT/HCPCS: 66984; V2630; J2250; J3490 ×3; A9270 ×2; J0171; 142

== ENCOUNTER 2017-03-17 11:48 | Day surgery (SDC) | payer MEDICARE, BC ==
[~2017-03-17 11:48] MED LIST changes: -CHONDR SU A NA/HYALUR INTRAOC KIT (SURGICARE) ONE; -EPINEPHRINE INJ/PF 1 MG/1 ML AMPULE ONE; -KETOROLAC TROMETHAMINE 0.45% 4 DROP/0.4 ML DROPERETTE OD PRN; +KETOROLAC TROMETHAMINE 0.45% 4 DROP/0.4 ML DROPERETTE OS PRN; -LIDOCAINE 1% INJ-PF (10 MG/ML) 30 ML SDV ONE; -TOBRAMYCIN SULFATE/DEXAMETH OPH OINTMENT 3.5 GM ONE
[2017-03-17] MEDS: CYCLOPENTOLATE 0.2%/PHENYLEPHRINE 1% OPH SOLN 2 ML OS PRN ×3 (12:00→12:39)
[2017-03-17] MEDS: TROPICAMIDE 1% OPH SOLN 3 ML OS PRN ×3 (12:00→12:39)
[2017-03-17] MEDS: BESIFLOXACIN HCL 0.6% OPH SUSP 5 ML BOTTLE OS PRN ×4 (12:01→13:01)
[2017-03-17] MEDS: TETRACAINE HCL 0.5% OPH SOLN 0.6 ML DROPERETTE OS PRN ×3 (12:02→12:43)
[2017-03-17] MEDS ORDERED: ONDANSETRON HCL INJ/PF 4 MG/2 ML SDV ONE (12:25)
[2017-03-17] MEDS ORDERED: FENTANYL CITRATE INJ/PF 100 MCG/2 ML AMPUL ONE (12:25)
[2017-03-17] MEDS ORDERED: MIDAZOLAM 2 MG/2 ML INJ ONE (12:25)
[2017-03-17] MEDS: CHONDR SU A NA/HYALUR INTRAOC KIT (SURGICARE) ONE ×2 (12:52)
[2017-03-17] MEDS: EPINEPHRINE INJ/PF 1 MG/1 ML AMPULE ONE ×2 (12:52)
[2017-03-17] MEDS: LIDOCAINE 1% INJ-PF (10 MG/ML) 30 ML SDV ONE ×2 (12:52)
[2017-03-17] MEDS: TOBRAMYCIN SULFATE/DEXAMETH OPH OINTMENT 3.5 GM ONE ×2 (13:01)
== END 2017-03-17 14:06 | disposition home or self-care (01) ==
LOC: SC 11:48
PROVIDERS: ATTEND Ophthalmology
PROC: 08RJ3JZ Replacement of Right Lens with Synthetic Substitute, Percutaneous Approach (ICD-10-PCS; principal; 2017-03-17 12:45)
DX: H25.12 Age-related nuclear cataract, left eye (principal); Z98.41 Cataract extraction status, right eye; M19.90 Unspecified osteoarthritis, unspecified site; I10 Essential (primary) hypertension; E03.9 Hypothyroidism, unspecified; F17.210 Nicotine dependence, cigarettes, uncomplicated; J44.9 Chronic obstructive pulmonary disease, unspecified; I48.91 Unspecified atrial fibrillation; Z79.899 Other long term (current) drug therapy; Z79.01 Long term (current) use of anticoagulants; Z79.51 Long term (current) use of inhaled steroids; Z88.5 Allergy status to narcotic agent; Z99.81 Dependence on supplemental oxygen
CPT/HCPCS: 66984; V2630; J2250; J3490 ×3; A9270; J0171; J3010; J2405; 142

== ENCOUNTER 2018-01-12 09:50 | Day surgery (SDC) | payer MEDICARE, BC ==
[2018-01-12] MEDS ORDERED: ONDANSETRON HCL INJ/PF 4 MG/2 ML SDV ONE (10:19)
[2018-01-12] MEDS ORDERED: FENTANYL CITRATE INJ/PF 100 MCG/2 ML AMPUL ONE ×2 (10:19→11:09)
[2018-01-12] MEDS ORDERED: EPINEPHRINE INJ 1 MG/10 ML DISP.SYRIN ONE (10:20)
[2018-01-12] MEDS ORDERED: NALOXONE HCL INJ/PF 0.4 MG/1 ML SDV ONE (10:20)
[2018-01-12] MEDS ORDERED: GLUCAGON,HUMAN RECOMB 1 MG INJ ONE (10:20)
[2018-01-12] MEDS ORDERED: FLUMAZENIL INJ 0.5 MG/5 ML VIAL ONE (10:20)
[2018-01-12] MEDS: MIDAZOLAM 2 MG/2 ML INJ ONE ×3 (10:37→10:45)
[2018-01-12] MEDS ORDERED: IPRATROPIUM/ALBUTEROL 0.5-2.5 MG/3 ML AMPUL NEB ONE (11:00)
[2018-01-12 12:16] VITALS: BP 117/46
--- NOTE | 2018-01-12 16:00 | Operative Report ---
Operative Report DATE OF SURGERY: 01/12/18 Operative Report: The risks benefits and alternatives of the procedure explained to the patient in detail and informed consent is obtained.A GIF Olympus video scope was inserted into the patient's mouth and hypopharynx, the esophagus is identified intubated and insufflated, the scope was then advanced through the esophagus stomach and duodenum ,retroflexion maneuver is done the esophagus stomach and first and second portions of the duodenum examined PREOPERATIVE DIAGNOSIS: Nausea and vomiting, melena POSTOPERATIVE DIAGNOSIS: Gastritis status post biopsy rule out Helicobacter pylori. No active bleeding noted OPERATION: EGD with biopsy SURGEON: SYED BOYD ANESTHESIA: Moderate Sedation - 4 mg of Versed, 25 mcg of fentanyl. Conscious sedation monitoring time 30 minutes. TISSUE REMOVED OR ALTERED: As noted above. COMPLICATIONS: None. ESTIMATED BLOOD LOSS: None. INTRAOPERATIVE FINDINGS: As noted above. PROCEDURE: Patient tolerated procedure well. No immediate postprocedure comp occasions are noted. Patient discharged in good condition. Discharge date 01/12/2018. Discharge diet: Regular. Discharge activity: Regular. 2-3-week follow-up to discuss findings. Patient is instructed to call the office or proceed to the emergency room should there be any further problems or questions.
== END 2018-01-12 12:10 | disposition home or self-care (01) ==
LOC: END 09:50
PROVIDERS: ATTEND Internal Medicine Gastroenterology
DX: K29.50 Unspecified chronic gastritis without bleeding (principal); K21.9 Gastro-esophageal reflux disease without esophagitis; K92.1 Melena; J43.8 Other emphysema; I48.91 Unspecified atrial fibrillation; I10 Essential (primary) hypertension; E03.9 Hypothyroidism, unspecified; D46.9 Myelodysplastic syndrome, unspecified; F17.210 Nicotine dependence, cigarettes, uncomplicated; J45.909 Unspecified asthma, uncomplicated; Z99.81 Dependence on supplemental oxygen; Z79.899 Other long term (current) drug therapy; Z79.51 Long term (current) use of inhaled steroids; Z88.5 Allergy status to narcotic agent; Z79.01 Long term (current) use of anticoagulants
CPT/HCPCS: 43239; 88342 ×2; 88305 ×2; 94640; J2250; J3010; A9270; J0171; J1610; J2310; J2405; J3490; J7620

== ENCOUNTER 2018-06-09 10:07 | Inpatient (IN) | payer MEDICARE, BC ==
[2018-06-09] MEDS ORDERED: IPRATROPIUM/ALBUTEROL 0.5-2.5 MG/3 ML AMPUL NEB ONE (10:22)
[2018-06-09] MEDS ORDERED: DILTIAZEM HCL/D5W 125 MG/125 ML RTUINJ IV PRN (10:25)
[2018-06-09] MEDS ORDERED: DILTIAZEM HCL INJ 25 MG/5 ML VIAL IV ONE (10:25)
[2018-06-09] MEDS ORDERED: ALBUTEROL SULFATE 0.083% NEB 2.5 MG/3 ML AMPUL NEB ONE (10:38)
[2018-06-09] MEDS ORDERED: METHYLPREDNISOLONE INJ 125 MG/2 ML SDV IV ONE (10:38)
--- NOTE | 2018-06-09 10:38 | ER Document Report ---
ED General - General Chief Complaint: Shortness Of Breath Stated Complaint: DIFFICULTY BREATHING Time Seen by Provider: 06/09/18 10:25 Primary Care Provider: AGUSTO AGRAWAL DO [Primary Care Provider] - Follow up as needed TRAVEL OUTSIDE OF THE [place] IN LAST 30 DAYS: No - HPI Notes: Patient is a 68-year-old female that presents to the emergency department for chief complaint of shortness of breath. Patient reports progressive shortness of breath over the last 7-8 days. She has not seen in her primary care provider. She has been using her albuterol inhaler at home about every 4 hours. She believes she is on a low-dose of steroids daily but is not sure. She denies history of CHF. She is not on home oxygen. She denies any associated fever, chills and increased sputum production. She states she has been coughing more. Patient denies any abdominal pain, nausea/vomiting and chest pain. She denies history of intubation for her COPD but has needed BiPAP previously. Past Medical History: Atrial fibrillation, COPD Past Surgical History: Reviewed in chart Social History: Reviewed in chart Family History: Reviewed and noncontributory for presenting illness Allergies: Reviewed, see documented allergy list. REVIEW OF SYSTEMS: CONSTITUTIONAL : No fever No chills No diaphoresis No recent illness EENT: No vision changes No congestion No sore throat CARDIOVASCULAR: No chest pain No palpitations RESPIRATORY: shortness of breath cough difficulty breathing GASTROINTESTINAL: No abdominal pain No nausea No vomiting No diarrhea GENITOURINARY: No dysuria No hematuria No difficulty urinating MUSCULOSKELETAL: No back pain No leg pain No arm pain SKIN: No rashes No lesions LYMPHATIC: No swollen, enlarged glands. NEUROLOGICAL: No lightheadedness No headache No weakness No paresthesias PSYCHIATRIC: No anxiety No depression PHYSICAL EXAMINATION: Vital signs reviewed, nursing noted reviewed. GENERAL: Ill-appearing, obese and in moderate acute distress. HEAD: Atraumatic, normocephalic. EYES: Eyes appear normal, extraocular movements intact, sclera anicteric, conjunctiva are normal. ENT: nares patent, oropharynx clear without exudates. Moist mucous membranes. NECK: Normal range of motion, supple without lymphadenopathy LUNGS: Tachypneic, moderate accessory muscle use, moderate respiratory distress. Lung sounds diminished with expiratory wheezing. No rhonchi or rails HEART: Tachycardic rate and irregularly irregular rhythm without murmurs. +2/4 bilateral radial and DP pulses ABDOMEN: Soft, nontender, normoactive bowel sounds. No rebound, guarding, or rigidity. No masses appreciated. EXTREMITIES: Nontender, good range of motion, trace pretibial edema. NEUROLOGICAL: No focal neurological deficits. Moves all extremities spontaneously Motor and sensory grossly intact on exam. PSYCH: Normal mood, normal affect. SKIN: Warm, mildly diaphoretic, normal turgor, no rashes or lesions noted on exposed skin - Related Data Allergies/Adverse Reactions: hydromorphone HCl [From Dilaudid] Allergy (Severe, Verified 01/12/18 09:54) Passed out Past Medical History - Social History Smoking Status: Unknown if Ever Smoked Family History: COPD - Past Medical History Cardiac Medical History: Reports: Hx Atrial Fibrillation, Hx Hypertension - MEDICATED, Hx Pulmonary Embolism - 30yrs ago Denies: Hx Congestive Heart Failure, Hx Coronary Artery Disease, Hx Heart Attack, Hx Hypercholesterolemia, Hx Peripheral Vascular Disease, Hx Heart Murmur Pulmonary Medical History: Reports: Hx Asthma, Hx Bronchitis, Hx COPD, Hx Pneumonia, Hx Tuberculosis Denies: Hx Respiratory Failure, Hx Sleep Apnea Neurological Medical History: Denies: Hx Cerebrovascular Accident, Hx Seizures Endocrine Medical History: Reports: Hx Hypothyroidism. Denies: Hx Diabetes Mellitus Type 1, Hx Diabetes Mellitus Type 2, Hx Graves' Disease, Hx Hyperthyroidism Renal/ Medical History: Denies: Hx End Stage Renal Disease, Hx Kidney Stones, Hx Peritoneal Dialysis Malignancy Medical History: Denies: Hx Lung Cancer GI Medical History: Reports: Hx Gastroesophageal Reflux Disease. Denies: Hx Hepatitis, Hx Hiatal Hernia, Hx Ulcer Musculoskeletal Medical History: Reports Hx Arthritis, Denies Hx Fibromyalgia, Denies Hx Muscular Dystrophy Psychiatric Medical History: Reports: Hx Depression Denies: Hx Bipolar Disorder, Hx Post Traumatic Stress Disorder, Hx Schizophrenia Traumatic Medical History: Denies: Hx Fractures Infectious Medical History: Denies: Hx C-Diff, Hx Hepatitis, Hx MRSA Past Surgical History: Reports: Hx Hysterectomy, Hx Orthopedic Surgery - CARPAL TUNNEL RELEASE, GANGLION CYST REMOVAL, TRIGGER FINGER RELEASE, Hx Tubal Ligation, Hx Urinary Tract Surgery. Denies: Hx Appendectomy, Hx Bowel Surgery, Hx Section, Hx Cholecystectomy, Hx Coronary Artery Bypass Graft, Hx Gastric Bypass Surgery, Hx Herniorrhaphy, Hx Mastectomy, Hx Open Heart Surgery, Hx Pacemaker, Hx Tonsillectomy - Immunizations Hx Diphtheria, Pertussis, Tetanus Vaccination: Yes Hx Pneumococcal Vaccination: 02/22/10 Physical Exam - Vital signs Vitals: Temp Pulse Resp BP Pulse Ox 97.6 F 139 H 26 H 139/93 H 96 06/09/18 10:12 06/09/18 10:12 06/09/18 10:12 06/09/18 10:12 06/09/18 10:12 Course - Re-evaluation Re-evalutation: 06/09/18 10:37 Vitals reviewed. Nursing notes reviewed. Patient is in atrial fibrillation with RVR. Her current rate is in the 120s-130s. Blood pressure has remained stable. She is very wheezy bilaterally hand was ordered aerosols for her COPD exacerbation. This will increase her heart rate and she was ordered Cardizem for further heart rate control. Patient currently denying any chest pain but is mildly diaphoretic. EKG shows no acute ischemic changes. Patient will be placed on BiPAP for her increased work of breathing. 06/09/18 12:25 Patient's lab work shows a leukocytosis of 17. She reports being on a steroid which may account for her white count. Chest x-ray shows no pneumonia. She has a normal lactic acid. She has not been febrile. I do not currently see signs of infection that are requiring treatment with antibiotics. I did trial her off of the BiPAP because her breathing was improved after all the aerosols however she started to become dyspneic again and felt uncomfortable. Patient would like to be placed back on BiPAP. Her heart rate after the 1 dose of Cardizem has improved to 110s to 120s blood pressure has remained stable. Patient will be admitted to the [facility] for further management of her atrial fibrillation with RVR and COPD exacerbation. Case discussed with Josselyn Dye NP and Dr. Gaona Laboratory 06/09/18 06/09/18 06/09/18 10:29 10:29 10:29 WBC 17.4 H RBC 3.81 Hgb 9.4 L Hct 31.1 L MCV 82 MCH 24.8 L MCHC 30.3 L RDW 17.7 H Plt Count 433 Seg Neutrophils % 71.8 Lymphocytes % 18.0 Monocytes % 7.4 Eosinophils % 2.1 Basophils % 0.7 Absolute Neutrophils 12.5 H Absolute Lymphocytes 3.1 Absolute Monocytes 1.3 Absolute Eosinophils 0.4 Absolute Basophils 0.1 Carbonic Acid HCO3/H2CO3 Ratio ABG pH ABG pCO2 ABG pO2 ABG HCO3 ABG Total CO2 ABG O2 Saturation ABG Base Excess FiO2 Sodium 141.5 Potassium 3.8 Chloride 105 Carbon Dioxide 32 H Anion Gap 5 BUN 8 Creatinine 0.57 Est GFR ( Amer) > 60 Est GFR (Non-Af Amer) > 60 Glucose 121 H Lactic Acid Calcium 9.4 Total Bilirubin 0.3 Direct Bilirubin 0.2 Neonat Total Bilirubin Not Reportable Neonat Direct Bilirubin Not Reportable Neonat Indirect Bili Not Reportable AST 14 ALT 21 Alkaline Phosphatase 117 Troponin I < 0.012 NT-Pro-B Natriuret Pep 84 Total Protein 6.2 L Albumin 3.3 L 06/09/18 06/09/18 10:29 10:45 WBC RBC Hgb Hct MCV MCH MCHC RDW Plt Count Seg Neutrophils % Lymphocytes % Monocytes % Eosinophils % Basophils % Absolute Neutrophils Absolute Lymphocytes Absolute Monocytes Absolute Eosinophils Absolute Basophils Carbonic Acid 1.43 H HCO3/H2CO3 Ratio 22:1 ABG pH 7.44 ABG pCO2 47.6 H ABG pO2 135.7 H ABG HCO3 31.7 H ABG Total CO2 33.1 H ABG O2 Saturation 98.8 H ABG Base Excess 6.7 FiO2 40% Sodium Potassium Chloride Carbon Dioxide Anion Gap BUN Creatinine Est GFR ( Amer) Est GFR (Non-Af Amer) Glucose Lactic Acid 1.9 Calcium Total Bilirubin Direct Bilirubin Neonat Total Bilirubin Neonat Direct Bilirubin Neonat Indirect Bili AST ALT Alkaline Phosphatase Troponin I NT-Pro-B Natriuret Pep Total Protein Albumin Chest X-Ray 06/09/18 10:20 IMPRESSION: STABLE APPEARANCE OF THE CHEST. SUPPORT DEVICES UNCHANGED. who accepts admission. - Vital Signs Vital signs: Temp Pulse Resp BP Pulse Ox 97.6 F 139 H 32 H 139/93 H 97 06/09/18 10:12 06/09/18 10:12 06/09/18 10:30 06/09/18 10:12 06/09/18 10:30 - Laboratory Result Diagrams: 06/09/18 10:29 06/09/18 10:29 Laboratory results interpreted by me: 06/09/18 06/09/18 06/09/18 10:29 10:29 10:45 WBC 17.4 H Hgb 9.4 L Hct 31.1 L MCH 24.8 L MCHC 30.3 L RDW 17.7 H Absolute Neutrophils 12.5 H Carbonic Acid 1.43 H ABG pCO2 47.6 H ABG pO2 135.7 H ABG HCO3 31.7 H ABG Total CO2 33.1 H ABG O2 Saturation 98.8 H Carbon Dioxide 32 H Glucose 121 H Total Protein 6.2 L Albumin 3.3 L - EKG Interpretation by Me Additional EKG results interpreted by me: 06/09/18 10:38 Interpreted by myself 1025: Atrial fibrillation with RVR, rate 128, normal axis, no ST elevation Critical Care Note - Critical Care Note Total time excluding time spent on procedures (mins): 40 Comments: Critical care time 40 exclusive from separate billable procedures for a patient requiring complex medical decision making, and high potential for clinical deterioration. Time spent obtaining history from patient or surrogate, discussions with consultants, development of treatment plan with patient or surrogate, evaluation of patient's response to treatment, examination of patient, ordering and performing treatments and interventions, ordering and review of laboratory studies, re-evaluation of patient's condition, ordering and review of radiographic studies and review of old charts Discharge - Discharge Clinical Impression: Atrial fibrillation with RVR, COPD exacerbation Condition: Stable Disposition: ADMITTED INPATIENT Admitting Provider: Jimenez (Hospitalist) Unit Admitted: IMCU Referrals: AGUSTO AGRAWAL DO [Primary Care Provider] - Follow up as needed
[2018-06-09 10:58] LABS: ABSOLUTE BASOPHILS # (AUTO) 0.1 10^3/uL (0.0-0.2); ABSOLUTE EOSINOPHILS # (AUTO) 0.4 10^3/uL (0.0-0.6); ABSOLUTE LYMPHOCYTES (AUTO) 3.1 10^3/uL (0.5-4.7); ABSOLUTE MONOCYTES (AUTO) 1.3 10^3/uL (0.1-1.4); ABSOLUTE NEUT (AUTO) 12.5 10^3/uL (1.7-8.2); BASOPHILS % (AUTO) 0.7 % (0-2); EOSINOPHILS % (AUTO) 2.1 % (0-6); HEMATOCRIT 31.1 % (36.0-47.0); HEMOGLOBIN 9.4 g/dL (12.0-15.5); MEAN CORPUSCULAR HEMOGLOBIN 24.8 pg (27.0-33.4); MEAN CORPUSCULAR HGB CONC 30.3 g/dL (32.0-36.0); MEAN CORPUSCULAR VOLUME 82 fl (80-97); MONOCYTES % (AUTO) 7.4 % (3-13); PLATELET COUNT 433 10^3/uL (150-450); RED BLOOD COUNT 3.81 10^6/uL (3.72-5.28); RED CELL DISTRIBUTION WIDTH 17.7 % (11.5-14.0); SEGMENTED NEUTROPHILS % (AUTO) 71.8 % (42-78); TOTAL CELLS COUNTED % (AUTO) 100 %; WHITE BLOOD COUNT 17.4 10^3/uL (4.0-10.5)
[2018-06-09 11:08] LABS: ARTERIAL BLOOD BASE EXCESS 6.7 mmol/L; ARTERIAL BLOOD H2CO3 1.43 mmol/L (1.05-1.35); ARTERIAL BLOOD HCO3 31.7 mmol/L (20-24); ARTERIAL BLOOD O2 SATURATION 98.8 % (94-98); ARTERIAL BLOOD PCO2 47.6 mmHg (35-45); ARTERIAL BLOOD PH 7.44 (7.35-7.45); ARTERIAL BLOOD PO2 135.7 mmHg (80-100); ARTERIAL BLOOD TOTAL CO2 33.1 mmol/L (21-25)
--- NOTE | 2018-06-09 11:21 | RADIOLOGY REPORT (SQ) ---
EXAM DESCRIPTION: CHEST SINGLE VIEW COMPLETED DATE/TIME: 06/09/2018 11:00 am REASON FOR STUDY: sob COMPARISON: 12/26/2016 NUMBER OF VIEWS: One view. TECHNIQUE: Single frontal radiographic image of the chest acquired. LIMITATIONS: None. FINDINGS: LUNGS AND PLEURA: Stable appearance. MEDIASTINUM AND HILAR STRUCTURES: Stable heart size and mediastinal structures. HEART AND VASCULAR STRUCTURES: Stable appearance. SUPPORT DEVICES: Appropriate location without change. BONES: No acute findings. OTHER: No other significant finding. IMPRESSION: STABLE APPEARANCE OF THE CHEST. SUPPORT DEVICES UNCHANGED. TECHNICAL DOCUMENTATION: JOB ID: [id number] [employer]- All Rights Reserved Reading location - IP/workstation name: [email or web address]
[2018-06-09 11:22] LABS: ALANINE AMINOTRANSFERASE 21 U/L (9-52); ALBUMIN 3.3 g/dL (3.5-5.0); ALKALINE PHOSPHATASE 117 U/L (38-126); ANION GAP 5 (5-19); ASPARTATE AMINO TRANSFERASE 14 U/L (14-36); BILIRUBIN,DIRECT 0.2 mg/dL (0.0-0.4); BILIRUBIN,TOTAL 0.3 mg/dL (0.2-1.3); BLOOD UREA NITROGEN 8 mg/dL (7-20); CALCIUM 9.4 mg/dL (8.4-10.2); CARBON DIOXIDE 32 mmol/L (22-30); CHLORIDE 105 mmol/L (98-107); GLUCOSE 121 mg/dL (75-110); POTASSIUM 3.8 mmol/L (3.6-5.0); SODIUM 141.5 mmol/L (137-145); TOTAL PROTEIN 6.2 g/dL (6.3-8.2)
[2018-06-09 11:25] LABS: ARTERIAL BLOOD FIO2 40%
[2018-06-09 11:34] LABS: NT PRO BNP 84 pg/mL (5-900)
[2018-06-09 11:35] LABS: TROPONIN I < 0.012 ng/mL
[2018-06-09 14:27] LABS: APPEARANCE,URINE SLIGHTLY-CLOUDY; BILIRUBIN,URINE NEGATIVE (NEGATIVE); COLOR,URINE YELLOW; GLUCOSE, URINE NEGATIVE (NEGATIVE); KETONES,URINE NEGATIVE (NEGATIVE); LEUKOCYTE ESTERASE,URINE NEGATIVE (NEGATIVE); NITRITE,URINE NEGATIVE (NEGATIVE); PROTEIN,URINE NEGATIVE (NEGATIVE); URINE SPECIFIC GRAVITY 1.017
[2018-06-09] MEDS ORDERED: ONDANSETRON HCL INJ/PF 4 MG/2 ML SDV IV PRN (14:42)
[2018-06-09] MEDS ORDERED: LEVALBUTEROL HCL NEB 1.25 MG/3 ML AMPUL NEB PRN (14:42)
--- NOTE | 2018-06-09 15:33 | EKG REPORT ---
SEVERITY:- ABNORMAL ECG - ATRIAL FIBRILLATION, V-RATE 98-156 PAIRED VENTRICULAR PREMATURE COMPLEXES PROBABLE POSTERIOR INFARCT : Confirmed by: Gloria Stephen MD 09-Jun-2018 15:32:18
[2018-06-09] MEDS: IPRATROPIUM/ALBUTEROL 0.5-2.5 MG/3 ML AMPUL NEB SCH ×2 (15:37→21:07)
[2018-06-09] MEDS ORDERED: ENOXAPARIN SODIUM INJ 30 MG/0.3 ML DISP.SYRIN SUBCUT SCH (16:00)
--- NOTE | 2018-06-09 16:29 | PDOC H&P ---
History of Present Illness Admission Date/PCP: 06/09/18 12:41 AGUSTO AGRAWLA DO Patient complains of: SOB History of Present Illness: LEVI GIBBONS is a 68 year old female with a PMH of COPD, CHF, chronic A. fib (on Eliquis), hypothyroidism, arthritis, GERD. She presents to [facility] today for a one-week history of shortness of breath. Patient is well-known to the hospitalist service with frequent admissions for COPD exacerbations. Patient states that her seasonal allergies will often trigger a COPD exacerbation. Additionally, the patient states that she quit smoking "3 weeks ago "but her son, who lives with her, still smokes in the home. The patient reports using home nebulizer treatments and rescue inhalers for her shortness of breath, but they offered no relief. Upon arrival to the emergency department, the patient's HR was elevated to 139. EKG showed A. fib with RVR, no evidence of ischemia or infarction. CXR WNL, no significant cardiopulmonary pathology. Laboratory studies significant for leukocytosis (WBC 17.4), anemia (Hgb 9.6). All other laboratory studies benign, including chemistry and cardiac enzymes. Patient was given a single dose of Cardizem 10 mg IV, which brought her heart rate down to < 100 bpm. Upon assessment, the patient is resting comfortably in bed on BiPAP. She is alert and oriented x3, able to answer all questions appropriately. She is able to speak in full sentences. Coarse lung sounds heard in the right lung wylie, wheezing heard in the left lung wylie. Plan to admit to [facility] under the hospitalist service for COPD exacerbation. Past Medical History Cardiac Medical History: Reports: Atrial Fibrillation, Hypertension - MEDICATED, Pulmonary Embolism - 30yrs ago Denies: Congestive Heart Failure, Coronary Artery Disease, Myocardial Infarction, Hyperlipidema, Peripheral Vascular Disease, Heart Murmur Pulmonary Medical History: Reports: Asthma, Bronchitis, Chronic Obstructive Pulmonary Disease (COPD), Pneumonia, Tuberculosis Denies: Respiratory Failure, Sleep Apnea Neurological Medical History: Denies: Seizures Endocrine Medical History: Reports: Hypothyroidism Denies: Diabetes Mellitus Type 1, Diabetes Mellitus Type 2, Hyperthyroidism Renal/ Medical History: Denies: End Stage Renal Disease Malignancy Medical History: Denies: Lung Cancer GI Medical History: Reports: Gastroesophageal Reflux Disease Denies: Hepatitis, Hiatal Hernia Musculoskeltal Medical History: Reports: Arthritis Denies: Fibromyalgia Psychiatric Medical History: Reports: Depression Denies: Bipolar Disorder, Post Traumatic Stress Disorder Hematology: Denies: Anemia, Sickle Cell Disease Infectious Medical History: Denies: Clostridium Difficile, Methicillin-Resistant Staph Aureus Past Surgical History Past Surgical History: Reports: Hysterectomy, Orthopedic Surgery - CARPAL TUNNEL RELEASE, GANGLION CYST REMOVAL, TRIGGER FINGER RELEASE, Tubal Ligation Denies: Amputation, Appendectomy, Section, Cholecystectomy, Coronary Artery Bypass Graft, Gastric Bypass Surgery, Herniorrhaphy, Mastectomy, Pacemaker, Tonsillectomy Social History Information Source: Patient Lives with: Family Smoking Status: Former Smoker Number of Years Smokin Frequency of Alcohol Use: None Hx Recreational Drug Use: No Drugs: None Hx Prescription Drug Abuse: No - Advance Directive Resuscitation Status: Full Code Family History Family History: COPD Parental Family History Reviewed: Yes Children Family History Reviewed: Yes Sibling(s) Family History Reviewed.: Yes Medication/Allergy Home Medications: Albuterol Sulfate [Proair HFA Inhalation Aerosol 8.5 gm MDI] 2 puff IH Q4HP PRN 06/09/18 Apixaban [Eliquis 5 mg Tablet] 5 mg PO Q12 06/09/18 Budesonide/Formoterol Fumarate [Symbicort HFA 160-4.5 mcg Inhaler 6 gm] 2 puff IH Q12 06/09/18 Buspirone HCl [Buspar 5 mg Tablet] 5 mg PO BID 06/09/18 Cetirizine HCl [Zyrtec 10 mg Tablet] 10 mg PO DAILY 06/09/18 Diltiazem HCl [Cardizem Cd 180 mg Capsule] 180 mg PO BID 06/09/18 Furosemide [Lasix 20 mg Tablet] 20 mg PO DAILY 06/09/18 Isosorbide Mononitrate [Ismo 20 mg Tablet] 10 mg PO BID 06/09/18 Levothyroxine Sodium [Synthroid 0.112 mg Tablet] 0.112 mg PO Q6AM 06/09/18 Meclizine HCl [Antivert 25 mg Tablet] 25 mg PO TIDP PRN 06/09/18 Pantoprazole Sodium [Protonix [address] Tablet] 40 mg PO Q6AM 06/09/18 Prednisone [Deltasone 10 mg Tablet] 10 mg PO DAILY 06/09/18 Roflumilast [Daliresp 500 mcg Tablet] 500 mcg PO DAILY 06/09/18 Ropinirole HCl [Requip 2 mg Tablet] 2 mg PO Q8 06/09/18 Allergies/Adverse Reactions: hydromorphone HCl [From Dilaudid] Allergy (Severe, Verified 01/12/18 09:54) Passed out Physical Exam Vital Signs: Temp Pulse Resp BP Pulse Ox 97.6 F 139 H 21 H 114/72 98 06/09/18 10:12 06/09/18 10:12 06/09/18 13:01 06/09/18 14:08 06/09/18 14:02 Intake & Output 06/08/18 06/09/18 06/10/18 06:59 06:59 06:59 Weight 96.5 kg General appearance: PRESENT: obese Eye exam: PRESENT: conjunctiva pink, PERRLA Mouth exam: PRESENT: moist, tongue midline Neck exam: PRESENT: full ROM Respiratory exam: PRESENT: wheezes, other - COARSE Results Laboratory Results: 06/09/18 10:29 06/09/18 10:29 06/09/18 06/09/18 06/09/18 10:29 10:29 10:29 WBC 17.4 H RBC 3.81 Hgb 9.4 L Hct 31.1 L MCV 82 MCH 24.8 L MCHC 30.3 L RDW 17.7 H Plt Count 433 Seg Neutrophils % 71.8 Lymphocytes % 18.0 Monocytes % 7.4 Eosinophils % 2.1 Basophils % 0.7 Absolute Neutrophils 12.5 H Absolute Lymphocytes 3.1 Absolute Monocytes 1.3 Absolute Eosinophils 0.4 Absolute Basophils 0.1 Carbonic Acid HCO3/H2CO3 Ratio ABG pH ABG pCO2 ABG pO2 ABG HCO3 ABG O2 Saturation ABG Base Excess FiO2 Sodium 141.5 Potassium 3.8 Chloride 105 Carbon Dioxide 32 H Anion Gap 5 BUN 8 Creatinine 0.57 Est GFR ( Amer) > 60 Est GFR (Non-Af Amer) > 60 Glucose 121 H Lactic Acid 1.9 Calcium 9.4 Total Bilirubin 0.3 AST 14 ALT 21 Alkaline Phosphatase 117 Total Protein 6.2 L Albumin 3.3 L Urine Color Urine Appearance Urine pH Ur Specific [place] Urine Protein Urine Glucose (UA) Urine Ketones Urine Blood Urine Nitrite Ur Leukocyte Esterase Urine WBC (Auto) Urine RBC (Auto) 04/18/19 04/18/19 10:45 14:03 WBC RBC Hgb Hct MCV MCH MCHC RDW Plt Count Seg Neutrophils % Lymphocytes % Monocytes % Eosinophils % Basophils % Absolute Neutrophils Absolute Lymphocytes Absolute Monocytes Absolute Eosinophils Absolute Basophils Carbonic Acid 1.43 H HCO3/H2CO3 Ratio 22:1 ABG pH 7.44 ABG pCO2 47.6 H ABG pO2 135.7 H ABG HCO3 31.7 H ABG O2 Saturation 98.8 H ABG Base Excess 6.7 FiO2 40% Sodium Potassium Chloride Carbon Dioxide Anion Gap BUN Creatinine Est GFR ( Amer) Est GFR (Non-Af Amer) Glucose Lactic Acid Calcium Total Bilirubin AST ALT Alkaline Phosphatase Total Protein Albumin Urine Color YELLOW Urine Appearance SLIGHTLY-CLOUDY Urine pH 6.0 Ur Specific [place] 1.017 Urine Protein NEGATIVE Urine Glucose (UA) NEGATIVE Urine Ketones NEGATIVE Urine Blood NEGATIVE Urine Nitrite NEGATIVE Ur Leukocyte Esterase NEGATIVE Urine WBC (Auto) 2 Urine RBC (Auto) 4 06/09/18 10:29 Troponin I < 0.012 NT-Pro-B Natriuret Pep 84 Impressions: Chest X-Ray 06/09/18 10:20 IMPRESSION: STABLE APPEARANCE OF THE CHEST. SUPPORT DEVICES UNCHANGED. Status: Imported from PACS Assessment and Plan - Diagnosis (1) Acute respiratory failure with hypoxia and hypercapnia Is this a current diagnosis for this admission?: Yes Plan: Secondary to COPD exacerbation likely stemming from seasonal allergies Hypoxic respiratory failure requiring supplemental oxygen via BiPAP Will wean as tolerated to home dose 2L NC Scheduled and as needed nebulizer treatments 125 mg Solu-Medrol IV administered in the emergency department, will continued scheduled IV Solu-Medrol 40 mg every 8 hours Daily Zyrtec for allergy relief The patient does not appear infected, nor is there evidence of pneumonia on x- ray, no plan for antibiotics at this time Patient states she quit smoking "3 weeks ago." Her son who lives in the home currently smokes. Encourage son to stop smoking in the house, will offered nicotine patch (2) COPD exacerbation Is this a current diagnosis for this admission?: Yes Plan: Plan as above (3) Atrial fibrillation Qualifiers: Atrial fibrillation type: chronic Qualified Code(s): I48.2 - Chronic atrial fibrillation Is this a current diagnosis for this admission?: Yes Plan: H chronic atrial fibrillation, anticoagulated with Eliquis Presented with RVR, given one dose Cardizem 10mg IV and HR dropped from 139 to <100 Continue home dose PO cardizem PRN IV metoprolol 5mg for HR > 120 Continue home dose Eliquis (4) GERD (gastroesophageal reflux disease) Is this a current diagnosis for this admission?: Yes Plan: PMH GERD Continue home dose PPI (5) HTN (hypertension) Qualifiers: Hypertension type: essential hypertension Qualified Code(s): I10 - Essential (primary) hypertension Is this a current diagnosis for this admission?: Yes Plan: PMH HTN Blood pressures have been relatively well controlled. Continue home dose antihypertensives PRN IV hydralazine for SBP>170 (6) Hypothyroidism Qualifiers: Hypothyroidism type: unspecified Qualified Code(s): E03.9 - Hypothyroidism, unspecified Is this a current diagnosis for this admission?: Yes Plan: H hypothyroidism Check TSH with a.m. labs Continue home dose Synthroid - Time Time Spent with patient: 25-34 minutes Medications reviewed and adjusted accordingly: Yes Anticipated discharge: Home Within: Other - When medically stable - Inpatient Certification Based on my medical assessment, after consideration of the patient's comorbidities, presenting symptoms, or acuity I expect that the services needed warrant INPATIENT care.: Yes I certify that my determination is in accordance with my understanding of Medicare's requirements for reasonable and necessary INPATIENT services [42 CFR 412.3e].: Yes Medical Necessity: Need For Continuous Telemetry Monitoring, Need for Nebulizer Therapy and Monitoring of Response, Risk of Complication if Not Cared For in Hospital
[2018-06-09] MEDS ORDERED: MECLIZINE HCL 25 MG TABLET PO PRN (16:30)
[2018-06-09] MEDS ORDERED: CETIRIZINE 10 MG TABLET PO ONE (17:00)
[2018-06-09 17:45] LABS: CREATINE KINASE MB 1.13 ng/mL (<4.55)
[2018-06-09 17:48] LABS: TROPONIN I < 0.012 ng/mL
[2018-06-09] MEDS ORDERED: (PENDING PHARMACY ID) (Buspirone Hcl [Buspar 5 Mg Tablet] 5 MG) PO SCH (18:00)
[2018-06-09] MEDS ORDERED: DILTIAZEM HCL 180 MG CAPSULE.CR PO SCH (18:00)
[2018-06-09] MEDS: BUSPIRONE HCL 10 MG TABLET PO SCH (18:18)
[2018-06-09] MEDS: ISOSORBIDE MONONITRATE 20 MG TABLET PO SCH (18:18)
[2018-06-09] MEDS: DILTIAZEM HCL 180 MG CAPSULE.CR PO SCH (22:09)
[2018-06-09] MEDS: APIXABAN 5 MG TABLET PO SCH (22:10)
[2018-06-09] MEDS: METHYLPREDNISOLONE INJ 40 MG/1 ML SDV IV SCH (22:11)
[2018-06-09] MEDS: FAMOTIDINE INJ/PF 20 MG/2 ML SDV IV SCH (22:11)
[2018-06-09] MEDS: ROPINIROLE HCL 2 MG TABLET PO SCH (22:13)
[2018-06-09 23:32] LABS: CREATINE KINASE MB 0.98 ng/mL (<4.55)
[2018-06-09 23:39] LABS: TROPONIN I < 0.012 ng/mL
[2018-06-10 05:07] LABS: HEMATOCRIT 27.2 % (36.0-47.0); HEMOGLOBIN 8.5 g/dL (12.0-15.5); MEAN CORPUSCULAR HEMOGLOBIN 25.3 pg (27.0-33.4); MEAN CORPUSCULAR HGB CONC 31.1 g/dL (32.0-36.0); MEAN CORPUSCULAR VOLUME 81 fl (80-97); PLATELET COUNT 381 10^3/uL (150-450); RED BLOOD COUNT 3.35 10^6/uL (3.72-5.28); RED CELL DISTRIBUTION WIDTH 17.4 % (11.5-14.0); WHITE BLOOD COUNT 20.6 10^3/uL (4.0-10.5)
[2018-06-10 05:26] LABS: ALANINE AMINOTRANSFERASE 18 U/L (9-52); ALBUMIN 3.5 g/dL (3.5-5.0); ALKALINE PHOSPHATASE 96 U/L (38-126); ANION GAP 12 (5-19); ASPARTATE AMINO TRANSFERASE 14 U/L (14-36); BILIRUBIN,DIRECT 0.2 mg/dL (0.0-0.4); BILIRUBIN,TOTAL 0.2 mg/dL (0.2-1.3); BLOOD UREA NITROGEN 18 mg/dL (7-20); CALCIUM 9.3 mg/dL (8.4-10.2); CARBON DIOXIDE 26 mmol/L (22-30); CHLORIDE 101 mmol/L (98-107); CREATINE KINASE 50 U/L (30-135); GLUCOSE 154 mg/dL (75-110); POTASSIUM 4.5 mmol/L (3.6-5.0); SODIUM 138.7 mmol/L (137-145); TOTAL PROTEIN 6.3 g/dL (6.3-8.2)
[2018-06-10] MEDS: METHYLPREDNISOLONE INJ 40 MG/1 ML SDV IV SCH ×3 (05:33→21:25)
[2018-06-10] MEDS: LEVOTHYROXINE SODIUM 0.112 MG TABLET PO SCH (05:33)
[2018-06-10] MEDS: PANTOPRAZOLE SODIUM 40 MG TABLET.DR PO SCH (05:33)
[2018-06-10] MEDS: ROPINIROLE HCL 2 MG TABLET PO SCH ×3 (05:35→21:24)
[2018-06-10 05:38] LABS: CREATINE KINASE MB 1.09 ng/mL (<4.55); NT PRO BNP 182 pg/mL (5-900)
[2018-06-10 05:40] LABS: TROPONIN I < 0.012 ng/mL
[2018-06-10 06:16] LABS: ABSOLUTE LYMPHOCYTES# (MANUAL) 0.8 10^3/uL (0.5-4.7); ABSOLUTE MONOCYTES # (MANUAL) 0.4 10^3/uL (0.1-1.4); ABSOLUTE NEUTROPHILS# (MANUAL) 19.4 10^3/uL (1.7-8.2); BASOPHILS % (MANUAL) 0 % (0-2); EOSINOPHILS % (MANUAL) 0 % (0-6); HYPOCHROMASIA 1+; LYMPHOCYTES % (MANUAL) 4 % (13-45); MONOCYTES % (MANUAL) 2 % (3-13); PLATELET COMMENT ADEQUATE; POIKILOCYTOSIS 2+; POLYCHROMASIA 1+; SEGMENTED NEUTROPHILS % (MAN) 94 % (42-78); SPHEROCYTES SLIGHT; STOMATOCYTES 1+; TOTAL CELLS COUNTED 100
[2018-06-10] MEDS: ACETAMINOPHEN 325 MG TABLET PO PRN ×2 (07:54→21:29)
[2018-06-10] MEDS: IPRATROPIUM/ALBUTEROL 0.5-2.5 MG/3 ML AMPUL NEB SCH ×4 (08:28→20:06)
[2018-06-10] MEDS: DILTIAZEM HCL 180 MG CAPSULE.CR PO SCH ×2 (10:01→21:24)
[2018-06-10] MEDS: FUROSEMIDE 20 MG TABLET PO SCH (10:01)
[2018-06-10] MEDS: CETIRIZINE 10 MG TABLET PO SCH (10:01)
[2018-06-10] MEDS: BUSPIRONE HCL 10 MG TABLET PO SCH ×2 (10:01→17:21)
[2018-06-10] MEDS: APIXABAN 5 MG TABLET PO SCH ×2 (10:01→21:24)
[2018-06-10] MEDS: ISOSORBIDE MONONITRATE 20 MG TABLET PO SCH ×2 (10:02→17:21)
[2018-06-10] MEDS: FAMOTIDINE INJ/PF 20 MG/2 ML SDV IV SCH ×2 (10:03→21:25)
[2018-06-10] MEDS: IBUPROFEN 600 MG TABLET PO PRN ×2 (11:07→20:46)
--- NOTE | 2018-06-10 15:39 | PDOC PROGRESS REPORT ---
Subjective Progress Note for:: 06/10/18 Subjective:: LEVI GIBBONS is a 68 year old female with a PMH of COPD, CHF, chronic A. fib (on Eliquis), hypothyroidism, arthritis, GERD. She is admitted to the hospitalist service for COPD exacerbation. The patient was seen this morning on rounds, she is sitting on the edge of the bed, appears comfortable, wearing supplemental oxygen via nasal cannula. Patient states that she feels short of breath, but feels "much better than yesterday."Wheezing has improved, but can still be auscultated in the bilateral lower lobes. Patient endorses becoming extremely short of breath when ambulating to the bathroom. HR has remained controlled, no recurrence of A. fib with RVR. Patient remains on home dose of her p.o. Cardizem. Continue current treatment plan. Patient will remain at [facility] for hypoxia and respiratory compromise secondary to COPD. Reason For Visit: COPD EXACERBATION Physical Exam Vital Signs: Temp Pulse Resp BP Pulse Ox 97.6 F 95 18 125/77 99 06/10/18 12:04 06/10/18 14:00 06/10/18 12:15 06/10/18 12:04 06/10/18 12:15 Intake & Output 06/09/18 06/10/18 06/11/18 06:59 06:59 06:59 Intake Total 335 Output Total 1 Balance 334 Weight 100.5 kg General appearance: PRESENT: morbidly obese Eye exam: PRESENT: conjunctiva pink, PERRLA Mouth exam: PRESENT: neck supple, tongue midline Teeth exam: PRESENT: poor dentation Neck exam: PRESENT: full ROM Respiratory exam: PRESENT: symmetrical, unlabored, wheezes Cardiovascular exam: PRESENT: RRR Pulses: PRESENT: normal radial pulses, normal dorsalis pedis pul Vascular exam: PRESENT: normal capillary refill GI/Abdominal exam: PRESENT: soft. ABSENT: distended, tenderness Rectal exam: PRESENT: deferred Extremities exam: PRESENT: full ROM, pedal edema Musculoskeletal exam: PRESENT: ambulatory, full ROM Neurological exam: PRESENT: alert, awake, oriented to person, oriented to place, oriented to time, oriented to situation Psychiatric exam: PRESENT: appropriate affect Skin exam: PRESENT: dry, intact Results Laboratory Results: 06/10/18 04:43 06/10/18 04:43 06/10/18 06/10/18 04:43 04:43 WBC 20.6 H RBC 3.35 L Hgb 8.5 L Hct 27.2 L MCV 81 MCH 25.3 L MCHC 31.1 L RDW 17.4 H Plt Count 381 Seg Neutrophils % Not Reportable Lymphocytes % Not Reportable Monocytes % Not Reportable Eosinophils % Not Reportable Basophils % Not Reportable Absolute Neutrophils Not Reportable Absolute Lymphocytes Not Reportable Absolute Monocytes Not Reportable Absolute Eosinophils Not Reportable Absolute Basophils Not Reportable Sodium 138.7 Potassium 4.5 Chloride 101 Carbon Dioxide 26 Anion Gap 12 BUN 18 Creatinine 0.66 Est GFR ( Amer) > 60 Est GFR (Non-Af Amer) > 60 Glucose 154 H Calcium 9.3 Phosphorus 4.0 Magnesium 2.0 Total Bilirubin 0.2 AST 14 ALT 18 Alkaline Phosphatase 96 Total Protein 6.3 Albumin 3.5 06/09/18 06/09/18 06/09/18 10:29 16:48 16:48 Creatine Kinase 38 CK-MB (CK-2) 1.13 Troponin I < 0.012 < 0.012 NT-Pro-B Natriuret Pep 84 06/09/18 06/09/18 06/10/18 22:40 22:40 04:43 Creatine Kinase 43 CK-MB (CK-2) 0.98 1.09 Troponin I < 0.012 < 0.012 NT-Pro-B Natriuret Pep 182 06/10/18 04:43 Creatine Kinase 50 CK-MB (CK-2) Troponin I NT-Pro-B Natriuret Pep Impressions: Chest X-Ray 06/09/18 10:20 IMPRESSION: STABLE APPEARANCE OF THE CHEST. SUPPORT DEVICES UNCHANGED. Status: Imported from PACS Assessment and Plan - Diagnosis (1) Acute respiratory failure with hypoxia and hypercapnia Is this a current diagnosis for this admission?: Yes Plan: Secondary to COPD exacerbation likely stemming from seasonal allergies Hypoxic respiratory failure requiring supplemental oxygen via BiPAP Will wean as tolerated to home dose 2L NC Scheduled and as needed nebulizer treatments 125 mg Solu-Medrol IV administered in the emergency department, will continued scheduled IV Solu-Medrol 40 mg every 8 hours Daily Zyrtec for allergy relief The patient does not appear infected, nor is there evidence of pneumonia on x- ray, no plan for antibiotics at this time Patient states she quit smoking "3 weeks ago." Her brother who lives in the home currently smokes. Encourage son to stop smoking in the house, will offered nicotine patch (2) COPD exacerbation Is this a current diagnosis for this admission?: Yes Plan: Plan as above (3) Atrial fibrillation Qualifiers: Atrial fibrillation type: chronic Qualified Code(s): I48.2 - Chronic atrial fibrillation Is this a current diagnosis for this admission?: Yes Plan: PMH chronic atrial fibrillation, anticoagulated with Eliquis Presented with RVR, given one dose Cardizem 10mg IV and HR dropped from 139 to <100 Continue home dose PO cardizem PRN IV metoprolol 5mg for HR > 120 Continue home dose Eliquis (4) GERD (gastroesophageal reflux disease) Is this a current diagnosis for this admission?: Yes Plan: PMH GERD Continue home dose PPI (5) HTN (hypertension) Qualifiers: Hypertension type: essential hypertension Qualified Code(s): I10 - Essential (primary) hypertension Is this a current diagnosis for this admission?: Yes Plan: PMH HTN Blood pressures have been relatively well controlled. Continue home dose antihypertensives - isosorbide, cardizem, lasix PRN IV hydralazine for SBP>170 (6) Hypothyroidism Qualifiers: Hypothyroidism type: unspecified Qualified Code(s): E03.9 - Hypothyroidism, unspecified Is this a current diagnosis for this admission?: Yes Plan: H hypothyroidism Check TSH with a.m. labs Continue home dose Synthroid - Time Time Spent with patient: 25-34 minutes Medications reviewed and adjusted accordingly: Yes Anticipated discharge: Home - Inpatient Certification Based on my medical assessment, after consideration of the patient's comorbidities, presenting symptoms, or acuity I expect that the services needed warrant INPATIENT care.: Yes I certify that my determination is in accordance with my understanding of Medicare's requirements for reasonable and necessary INPATIENT services [42 CFR 412.3e].: Yes Medical Necessity: Need For Continuous Telemetry Monitoring, Need for Nebulizer Therapy and Monitoring of Response, Risk of Complication if Not Cared For in Hospital
[2018-06-10] MEDS: NICOTINE 21 MG/24 HR PATCH.TD24 TD SCH (17:24)
[2018-06-11 05:41] LABS: HEMATOCRIT 27.3 % (36.0-47.0); HEMOGLOBIN 8.4 g/dL (12.0-15.5); MEAN CORPUSCULAR HEMOGLOBIN 25.2 pg (27.0-33.4); MEAN CORPUSCULAR HGB CONC 30.7 g/dL (32.0-36.0); MEAN CORPUSCULAR VOLUME 82 fl (80-97); PLATELET COUNT 388 10^3/uL (150-450); RED BLOOD COUNT 3.32 10^6/uL (3.72-5.28); RED CELL DISTRIBUTION WIDTH 17.5 % (11.5-14.0)
[2018-06-11] MEDS: METHYLPREDNISOLONE INJ 40 MG/1 ML SDV IV SCH ×3 (06:09→21:14)
[2018-06-11] MEDS: LEVOTHYROXINE SODIUM 0.112 MG TABLET PO SCH (06:09)
[2018-06-11] MEDS: ROPINIROLE HCL 2 MG TABLET PO SCH ×3 (06:09→21:15)
[2018-06-11] MEDS: PANTOPRAZOLE SODIUM 40 MG TABLET.DR PO SCH (06:09)
[2018-06-11 06:15] LABS: WHITE BLOOD COUNT 30.5 10^3/uL (4.0-10.5)
[2018-06-11] MEDS: IPRATROPIUM/ALBUTEROL 0.5-2.5 MG/3 ML AMPUL NEB SCH ×4 (08:07→20:03)
[2018-06-11] MEDS: FAMOTIDINE INJ/PF 20 MG/2 ML SDV IV SCH ×2 (09:39→21:14)
[2018-06-11] MEDS: APIXABAN 5 MG TABLET PO SCH ×2 (09:39→21:14)
[2018-06-11] MEDS: BUSPIRONE HCL 10 MG TABLET PO SCH ×2 (09:39→17:22)
[2018-06-11] MEDS: DILTIAZEM HCL 180 MG CAPSULE.CR PO SCH ×2 (09:39→21:14)
[2018-06-11] MEDS: ISOSORBIDE MONONITRATE 20 MG TABLET PO SCH ×2 (09:39→17:22)
[2018-06-11] MEDS: FUROSEMIDE 20 MG TABLET PO SCH (09:39)
[2018-06-11] MEDS: CETIRIZINE 10 MG TABLET PO SCH (09:39)
[2018-06-11] MEDS: NICOTINE 21 MG/24 HR PATCH.TD24 TD SCH (09:40)
[2018-06-11] MEDS: NYSTATIN 500000 UNIT/5 ML UDCUP PO SCH ×2 (12:25→17:22)
[2018-06-11] MEDS: IBUPROFEN 600 MG TABLET PO PRN ×2 (14:23→20:27)
[2018-06-11] MEDS: ACETAMINOPHEN 325 MG TABLET PO PRN (20:26)
--- NOTE | 2018-06-11 22:22 | PDOC PROGRESS REPORT ---
Subjective Progress Note for:: 06/11/18 Subjective:: LEVI GIBBONS is a 68 year old female with a PMH of COPD, CHF, chronic A. fib (on Eliquis), hypothyroidism, arthritis, GERD. She is admitted to the hospitalist service for COPD exacerbation. The patient was seen this morning on rounds, she is sitting on the edge of the bed, appears comfortable, wearing supplemental oxygen via nasal cannula. Patient complains of mouth pain. There is a thin layer of white film over the tongue. Wheezing has improved, but can still be auscultated in the bilateral lower lobes. Patient states she is able to ambulate to the bathroom, something she was previously unable to do. HR has remained controlled, no recurrence of A. fib with RVR. Patient remains on home dose of her p.o. Cardizem. Concerned about leukocytosis. Patient's WBC has increased from 20->30. No fevers recorded. Patient was previously no covered with empiric abx because she did not appear infected (no leukocytosis upon admission, no fever, no PNA on CXR). Plan to initiate abx therapy. Reason For Visit: COPD EXACERBATION Physical Exam Vital Signs: Temp Pulse Resp BP Pulse Ox 97.8 F 92 18 118/62 95 06/11/18 20:28 06/11/18 20:28 06/11/18 20:28 06/11/18 20:28 06/11/18 20:28 Intake & Output 06/10/18 06/11/18 06/12/18 06:59 06:59 06:59 Intake Total 335 1387 769 Output Total 1 Balance 334 1387 769 Weight 100.5 kg 101.4 kg General appearance: PRESENT: obese Eye exam: PRESENT: conjunctiva pink, PERRLA Mouth exam: PRESENT: tongue midline Teeth exam: PRESENT: poor dentation Neck exam: PRESENT: full ROM Respiratory exam: PRESENT: symmetrical, unlabored, wheezes Cardiovascular exam: PRESENT: RRR Pulses: PRESENT: normal radial pulses, normal dorsalis pedis pul Vascular exam: PRESENT: normal capillary refill GI/Abdominal exam: PRESENT: soft. ABSENT: distended, tenderness Rectal exam: PRESENT: deferred Extremities exam: PRESENT: full ROM, pedal edema. ABSENT: tenderness Musculoskeletal exam: PRESENT: ambulatory, full ROM. ABSENT: deformity Neurological exam: PRESENT: alert, awake, oriented to person, oriented to place, oriented to time, oriented to situation Psychiatric exam: PRESENT: appropriate affect Skin exam: PRESENT: dry, intact, normal color Results Laboratory Results: 06/11/18 04:23 06/10/18 04:43 06/11/18 04:23 WBC 30.5 H* RBC 3.32 L Hgb 8.4 L Hct 27.3 L MCV 82 MCH 25.2 L MCHC 30.7 L RDW 17.5 H Plt Count 388 06/09/18 06/09/18 06/09/18 10:29 16:48 16:48 Creatine Kinase 38 CK-MB (CK-2) 1.13 Troponin I < 0.012 < 0.012 NT-Pro-B Natriuret Pep 84 06/09/18 06/09/18 06/10/18 22:40 22:40 04:43 Creatine Kinase 43 CK-MB (CK-2) 0.98 1.09 Troponin I < 0.012 < 0.012 NT-Pro-B Natriuret Pep 182 06/10/18 04:43 Creatine Kinase 50 CK-MB (CK-2) Troponin I NT-Pro-B Natriuret Pep Impressions: Chest X-Ray 06/09/18 10:20 IMPRESSION: STABLE APPEARANCE OF THE CHEST. SUPPORT DEVICES UNCHANGED. Status: Imported from PACS Assessment and Plan - Diagnosis (1) Acute respiratory failure with hypoxia and hypercapnia Is this a current diagnosis for this admission?: Yes Plan: Secondary to COPD exacerbation likely stemming from seasonal allergies Hypoxic respiratory failure requiring supplemental oxygen via BiPAP Will wean as tolerated to home dose 2L NC Scheduled and as needed nebulizer treatments 125 mg Solu-Medrol IV administered in the emergency department, will continued scheduled IV Solu-Medrol 40 mg every 8 hours Daily Zyrtec for allergy relief The patient does not appear infected, nor is there evidence of pneumonia on x- ray, no plan for antibiotics at this time Patient states she quit smoking "3 weeks ago." Her brother who lives in the home currently smokes. Encourage son to stop smoking in the house, will offered nicotine patch (2) COPD exacerbation Is this a current diagnosis for this admission?: Yes Plan: Plan as above (3) Atrial fibrillation Qualifiers: Atrial fibrillation type: chronic Qualified Code(s): I48.2 - Chronic atrial fibrillation Is this a current diagnosis for this admission?: Yes Plan: PMH chronic atrial fibrillation, anticoagulated with Eliquis Presented with RVR, given one dose Cardizem 10mg IV and HR dropped from 139 to <100 Continue home dose PO cardizem PRN IV metoprolol 5mg for HR > 120 Continue home dose Eliquis (4) GERD (gastroesophageal reflux disease) Is this a current diagnosis for this admission?: Yes Plan: PMH GERD Continue home dose PPI (5) HTN (hypertension) Qualifiers: Hypertension type: essential hypertension Qualified Code(s): I10 - Essential (primary) hypertension Is this a current diagnosis for this admission?: Yes Plan: PMH HTN Blood pressures have been relatively well controlled. Continue home dose antihypertensives - isosorbide, cardizem, lasix PRN IV hydralazine for SBP>170 (6) Hypothyroidism Qualifiers: Hypothyroidism type: unspecified Qualified Code(s): E03.9 - Hypothyroidism, unspecified Is this a current diagnosis for this admission?: Yes Plan: PMH hypothyroidism Check TSH with a.m. labs Continue home dose Synthroid - Time Time Spent with patient: 15-24 minutes Medications reviewed and adjusted accordingly: Yes Anticipated discharge: Home Within: within 72 hours - Inpatient Certification Based on my medical assessment, after consideration of the patient's comorbidities, presenting symptoms, or acuity I expect that the services needed warrant INPATIENT care.: Yes I certify that my determination is in accordance with my understanding of Medicare's requirements for reasonable and necessary INPATIENT services [42 CFR 412.3e].: Yes Medical Necessity: Need for Nebulizer Therapy and Monitoring of Response, Risk of Complication if Not Cared For in Hospital
[2018-06-12] MEDS: NYSTATIN 500000 UNIT/5 ML UDCUP PO SCH ×3 (00:49→12:12)
[2018-06-12] MEDS: PANTOPRAZOLE SODIUM 40 MG TABLET.DR PO SCH (05:36)
[2018-06-12] MEDS: LEVOTHYROXINE SODIUM 0.112 MG TABLET PO SCH (05:36)
[2018-06-12] MEDS: ROPINIROLE HCL 2 MG TABLET PO SCH ×2 (05:36→13:43)
[2018-06-12] MEDS: METHYLPREDNISOLONE INJ 40 MG/1 ML SDV IV SCH ×2 (05:36→13:43)
[2018-06-12] MEDS: IPRATROPIUM/ALBUTEROL 0.5-2.5 MG/3 ML AMPUL NEB SCH ×2 (08:09→12:22)
[2018-06-12] MEDS: ISOSORBIDE MONONITRATE 20 MG TABLET PO SCH (09:24)
[2018-06-12] MEDS: FAMOTIDINE INJ/PF 20 MG/2 ML SDV IV SCH (09:24)
[2018-06-12] MEDS: NICOTINE 21 MG/24 HR PATCH.TD24 TD SCH (09:25)
[2018-06-12] MEDS: FUROSEMIDE 20 MG TABLET PO SCH (09:25)
[2018-06-12] MEDS: BUSPIRONE HCL 10 MG TABLET PO SCH (09:25)
[2018-06-12] MEDS: CETIRIZINE 10 MG TABLET PO SCH (09:25)
[2018-06-12] MEDS: APIXABAN 5 MG TABLET PO SCH (09:25)
[2018-06-12] MEDS: DILTIAZEM HCL 180 MG CAPSULE.CR PO SCH (09:25)
[2018-06-12] MEDS ORDERED: DILTIAZEM HCL 60 MG TABLET PO ONE (11:38)
[2018-06-12 11:49] LABS: HEMOGLOBIN 8.4 g/dL (12.0-15.5); MEAN CORPUSCULAR HEMOGLOBIN 24.8 pg (27.0-33.4); MEAN CORPUSCULAR HGB CONC 30.9 g/dL (32.0-36.0); MEAN CORPUSCULAR VOLUME 80 fl (80-97); PLATELET COUNT 413 10^3/uL (150-450); RED BLOOD COUNT 3.37 10^6/uL (3.72-5.28); RED CELL DISTRIBUTION WIDTH 17.6 % (11.5-14.0)
[2018-06-12 12:06] LABS: ALANINE AMINOTRANSFERASE 33 U/L (9-52); ALBUMIN 3.3 g/dL (3.5-5.0); ALKALINE PHOSPHATASE 92 U/L (38-126); ASPARTATE AMINO TRANSFERASE 16 U/L (14-36); BILIRUBIN,DIRECT 0.2 mg/dL (0.0-0.4); BILIRUBIN,TOTAL 0.3 mg/dL (0.2-1.3); BLOOD UREA NITROGEN 24 mg/dL (7-20); CALCIUM 9.3 mg/dL (8.4-10.2); CHLORIDE 98 mmol/L (98-107); GLUCOSE 197 mg/dL (75-110); PHOSPHORUS 3.5 mg/dL (2.5-4.5); POTASSIUM 4.4 mmol/L (3.6-5.0); TOTAL PROTEIN 6.1 g/dL (6.3-8.2)
[2018-06-12 12:15] LABS: WHITE BLOOD COUNT 32.1 10^3/uL (4.0-10.5)
[2018-06-12 12:16] LABS: ANION GAP 5 (5-19); CARBON DIOXIDE 35 mmol/L (22-30); SODIUM 137.5 mmol/L (137-145)
[2018-06-12 15:30] VITALS: BP 114/72
[2018-06-12] MEDS ORDERED: LEVOFLOXACIN 750 MG TABLET PO SCH (22:00)
[2018-06-12] MEDS ORDERED: DILTIAZEM HCL 240 MG CAPSULE.CR PO SCH (22:00)
[2018-06-13 13:35] LABS: PATH REVIEW PATHOLOGIST REVIEWED
--- NOTE | 2018-06-14 22:16 | PDOC DISCHARGE SUMMARY ---
Addendum entered and electronically signed by KAUSHAL HONEYCUTT NP 06/14/18 22:16: Provider Note Provider Note: LATE ENTRY: THIS PATIENT WAS DISCHARGED 06/12/2018 Original Note: General - Admit/Disc Date/PCP Admission Date/Primary Care Provider: 06/09/18 12:41 AGUSTO AGRAWAL DO Discharge Date: 06/12/18 - Discharge Diagnosis (1) Acute respiratory failure with hypoxia and hypercapnia Is this a current diagnosis for this admission?: Yes (2) COPD exacerbation Is this a current diagnosis for this admission?: Yes (3) Atrial fibrillation Is this a current diagnosis for this admission?: Yes (4) GERD (gastroesophageal reflux disease) Is this a current diagnosis for this admission?: Yes (5) HTN (hypertension) Is this a current diagnosis for this admission?: Yes (6) Hypothyroidism Is this a current diagnosis for this admission?: Yes - Additional Information Resuscitation Status: Full Code Discharge Diet: As Tolerated Discharge Activity: Activity As Tolerated Prescriptions: Diltiazem HCl [Cardizem Cd 240 mg Capsule.cr] 240 mg PO Q12 #60 capsule.cr Ipratropium/Albuterol Sulfate [Duoneb 3 ml Ampul] 3 ml NEB [id number] #25 vial.neb Levofloxacin [Levaquin 750 mg Tablet] 750 mg PO QHS #3 tablet Nicotine [Nicoderm 21 mg/24 Hr Transderm Patch] 1 each TD DAILY #30 patch.td24 Tiotropium [place] [Spiriva Handihaler 5 Cap/Kit (18 Mcg/Cap)] 1 cap IH DAILY #5 capsule Home Medications: Albuterol Sulfate [Proair HFA Inhalation Aerosol 8.5 gm MDI] 2 puff IH Q4HP PRN 06/09/18 Apixaban [Eliquis 5 mg Tablet] 5 mg PO Q12 06/09/18 Budesonide/Formoterol Fumarate [Symbicort HFA 160-4.5 mcg Inhaler 6 gm] 2 puff IH Q12 06/09/18 Buspirone HCl [Buspar 5 mg Tablet] 5 mg PO BID 06/09/18 Cetirizine HCl [Zyrtec 10 mg Tablet] 10 mg PO DAILY 06/09/18 Furosemide [Lasix 20 mg Tablet] 20 mg PO DAILY 06/09/18 Isosorbide Mononitrate [Ismo 20 mg Tablet] 10 mg PO BID 06/09/18 Levothyroxine Sodium [Synthroid 0.112 mg Tablet] 0.112 mg PO Q6AM 06/09/18 Meclizine HCl [Antivert 25 mg Tablet] 25 mg PO TIDP PRN 06/09/18 Pantoprazole Sodium [Protonix [address] Tablet] 40 mg PO Q6AM 06/09/18 Prednisone [Deltasone 10 mg Tablet] 10 mg PO DAILY 06/09/18 Roflumilast [Daliresp 500 mcg Tablet] 500 mcg PO DAILY 06/09/18 Ropinirole HCl [Requip 2 mg Tablet] 2 mg PO Q8 06/09/18 Diltiazem HCl [Cardizem Cd 240 mg Capsule.cr] 240 mg PO Q12 #60 capsule.cr 06/12/18 Ipratropium/Albuterol Sulfate [Duoneb 3 ml Ampul] [address] [facility] [id number] #25 vial.neb 06/12/18 Levofloxacin [Levaquin 750 mg Tablet] 750 mg PO QHS #3 tablet 06/12/18 Nicotine [Nicoderm 21 mg/24 Hr Transderm Patch] 1 each TD DAILY #30 patch.td24 06/12/18 Nystatin [Mycostatin 500,000 Unit/5 ml Susp Udcup] 100,000 unit PO Q6 udc 06/12 Tiotropium [place] [Spiriva Handihaler 5 Cap/Kit (18 Mcg/Cap)] 1 cap IH DAILY #5 capsule 06/12/18 History of Present Illness History of Present Illness: LEVI GIBBONS is a 68 year old female with a PMH of COPD, CHF, chronic A. fib (on Eliquis), hypothyroidism, arthritis, GERD. She presents to [facility] today for a one-week history of shortness of breath. Patient is well-known to the hospitalist service with frequent admissions for COPD exacerbations. Patient states that her seasonal allergies will often trigger a COPD exacerbation. Additionally, the patient states that she quit smoking "3 weeks ago "but her son, who lives with her, still smokes in the home. The patient reports using home nebulizer treatments and rescue inhalers for her shortness of breath, but they offered no relief. Upon arrival to the emergency department, the patient's HR was elevated to 139. EKG showed A. fib with RVR, no evidence of ischemia or infarction. CXR WNL, no significant cardiopulmonary pathology. Laboratory studies significant for leukocytosis (WBC 17.4), anemia (Hgb 9.6). All other laboratory studies benign, including chemistry and cardiac enzymes. Patient was given a single dose of Cardizem 10 mg IV, which brought her heart rate down to < 100 bpm. Upon assessment, the patient is resting comfortably in bed on BiPAP. She is alert and oriented x3, able to answer all questions appropriately. She is able to speak in full sentences. Coarse lung sounds heard in the right lung wylie, wheezing heard in the left lung wylie. Plan to admit to [facility] under the hospitalist service for COPD exacerbation. Hospital Course Hospital Course: LEVI GIBBONS is a 68 year old female with a PMH of COPD, CHF, chronic A. fib (on Eliquis), hypothyroidism, arthritis, GERD. She was admitted to the hospitalist service for a COPD exacerbation, initially on BIPAP she was able to wean to nasal cannula within 24 hours. Her acute respiratory failure was likely secondary to COPD exacerbation likely stemming from seasonal allergies. The patient was treated with scheduled and as needed nebulizer treatments, scheduled IV Solu-Medrol, daily Zyrtec for allergy relief. The patient does not appear infected, nor is there evidence of pneumonia on x-ray, therefore the patient was not initially treated with antibiotics. Her WBC jumped from 20-->30 and she remained asymptomatic, so she was started on Levaquin. The patient had a full workup with Heme/Onc due to extreme leukocytisis and there was no recommended treatment for her. She was diagnosed with a myeoproliferative disorder. Of note, the patient has a PMH chronic atrial fibrillation, anticoagulated with Eliquis. She presented with RVR, given one dose Cardizem 10mg IV and HR dropped from 139 to <100. She was continued on her home dose of cardizem, while inpatient but she had another episode of RVR that was self-limiting. As a result, the patient's PO Cardizem was increased from 180-->240 mg q12h per day. On hospital day #3 the patient was able to ambulate >10 feet (her baseline) while on home dose O2 without becoming short of breath. She was sent home with prescriptions for antibiotics to complete her regimen, a steroid taper, and long acting in halers. Per the patient's request, she was sent home with prescriptions for a rolling walker chair, Dumatthew neulizer treatments For further information regarding this patient's hospitalization, please refer the the EMR. Physical Exam Vital Signs: Temp Pulse Resp BP Pulse Ox 97.9 F 83 16 114/72 96 06/12/18 15:29 06/12/18 15:29 06/12/18 15:29 06/12/18 15:29 06/12/18 15:29 General appearance: PRESENT: morbidly obese Eye exam: PRESENT: conjunctiva pink, PERRLA Mouth exam: PRESENT: tongue midline Teeth exam: PRESENT: poor dentation Neck exam: PRESENT: full ROM Respiratory exam: PRESENT: clear to auscultation armand, symmetrical, unlabored Cardiovascular exam: PRESENT: RRR Pulses: PRESENT: normal radial pulses, normal dorsalis pedis pul Vascular exam: PRESENT: normal capillary refill GI/Abdominal exam: PRESENT: normal bowel sounds, soft. ABSENT: distended, tenderness Rectal exam: PRESENT: deferred Extremities exam: PRESENT: full ROM, pedal edema - trace Musculoskeletal exam: PRESENT: ambulatory, full ROM Neurological exam: PRESENT: alert, awake, oriented to person, oriented to place, oriented to time, oriented to situation Psychiatric exam: PRESENT: appropriate affect Skin exam: PRESENT: dry, intact, normal color Results Laboratory Results: 06/12/18 11:40 06/12/18 11:40 06/09/18 11:25 Blood Blood Culture - Final NO GROWTH IN 5 DAYS 06/09/18 10:29 Blood Blood Culture - Final NO GROWTH IN 5 DAYS 06/09/18 06/09/18 06/09/18 10:29 16:48 16:48 Creatine Kinase 38 CK-MB (CK-2) 1.13 Troponin I < 0.012 < 0.012 NT-Pro-B Natriuret Pep 84 06/09/18 06/09/18 06/10/18 22:40 22:40 04:43 Creatine Kinase 43 CK-MB (CK-2) 0.98 1.09 Troponin I < 0.012 < 0.012 NT-Pro-B Natriuret Pep 182 06/10/18 04:43 Creatine Kinase 50 CK-MB (CK-2) Troponin I NT-Pro-B Natriuret Pep Impressions: Chest X-Ray 06/09/18 10:20 IMPRESSION: STABLE APPEARANCE OF THE CHEST. SUPPORT DEVICES UNCHANGED. Status: Imported from PACS Qualifiers - * PATIENT BEING DISCHARGED WITH ANY OF THE FOLLOWING DIAGNOSIS: No
== END 2018-06-12 15:56 | disposition home or self-care (01) | DRG 190 ==
LOC: ER 10:07 → EH 12:41 → 3W 17:12
PROVIDERS: ADMIT Internal Medicine; ATTEND Internal Medicine
PROC: 5A09457 Assistance with Respiratory Ventilation, 24-96 Consecutive Hours, Continuous Positive Airway Pressure (ICD-10-PCS; principal; 2018-06-09)
PROC: 3E0F73Z Introduction of Anti-inflammatory into Respiratory Tract, Via Natural or Artificial Opening (ICD-10-PCS; 2018-06-09)
DX: J44.1 Chronic obstructive pulmonary disease with (acute) exacerbation (principal); J96.01 Acute respiratory failure with hypoxia; J96.02 Acute respiratory failure with hypercapnia; K21.9 Gastro-esophageal reflux disease without esophagitis; I10 Essential (primary) hypertension; E03.9 Hypothyroidism, unspecified; I48.2 Chronic atrial fibrillation; D64.9 Anemia, unspecified; E66.01 Morbid (severe) obesity due to excess calories; F32.9 Major depressive disorder, single episode, unspecified; Z79.01 Long term (current) use of anticoagulants; Z79.899 Other long term (current) drug therapy; Z87.891 Personal history of nicotine dependence; Z86.711 Personal history of pulmonary embolism; Z90.710 Acquired absence of both cervix and uterus; Z79.890 Hormone replacement therapy; Z88.6 Allergy status to analgesic agent; Z83.6 Family history of other diseases of the respiratory system
CPT/HCPCS: 36415; 36600; 71045; 80053; 81001; 82550; 82553; 82803; 83605; 83735; 83880; 84100; 84484; 85025; 85027; 87040; 87070; 87077; 87205; 93005; 93010; 94640; 94660; 96374; 96375; 99291; J1650; J2920; J2930; J3490; J7620; S0028

== ENCOUNTER 2018-10-29 18:15 | Inpatient (IN) | payer MEDICARE, BC ==
[2018-10-29] MEDS ORDERED: IPRATROPIUM BROMIDE 0.02% NEB 0.5 MG/2.5 ML AMPUL NEB ONE (18:47)
[2018-10-29] MEDS ORDERED: ALBUTEROL SULFATE 0.083% NEB 2.5 MG/3 ML AMPUL NEB ONE ×2 (18:47→18:49)
[2018-10-29] MEDS ORDERED: METHYLPREDNISOLONE INJ 125 MG/2 ML SDV IV ONE (18:48)
[2018-10-29] MEDS ORDERED: NORMAL SALINE 250 ML IV PRN (19:13)
[2018-10-29 19:21] LABS: ALBUMIN 3.4 g/dL (3.5-5.0); ALKALINE PHOSPHATASE 135 U/L (38-126); ANION GAP 8 (5-19); ASPARTATE AMINO TRANSFERASE 22 U/L (14-36); BILIRUBIN,DIRECT 0.3 mg/dL (0.0-0.4); BILIRUBIN,TOTAL 0.4 mg/dL (0.2-1.3); BLOOD UREA NITROGEN 14 mg/dL (7-20); CALCIUM 8.2 mg/dL (8.4-10.2); CARBON DIOXIDE 29 mmol/L (22-30); CHLORIDE 102 mmol/L (98-107); CREATINE KINASE 28 U/L (30-135); GLUCOSE 86 mg/dL (75-110); POTASSIUM 4.1 mmol/L (3.6-5.0)
[2018-10-29 19:33] LABS: CREATINE KINASE MB 0.63 ng/mL (<4.55); NT PRO BNP 562 pg/mL (5-900)
[2018-10-29 19:35] LABS: TROPONIN I < 0.012 ng/mL
[2018-10-29 19:39] LABS: MEAN CORPUSCULAR HEMOGLOBIN 18.1 pg (27.0-33.4); MEAN CORPUSCULAR HGB CONC 27.6 g/dL (32.0-36.0); MEAN CORPUSCULAR VOLUME 66 fl (80-97); PLATELET COUNT 313 10^3/uL (150-450); RED BLOOD COUNT 1.97 10^6/uL (3.72-5.28); RED CELL DISTRIBUTION WIDTH 25.3 % (11.5-14.0); WHITE BLOOD COUNT 20.5 10^3/uL (4.0-10.5)
[2018-10-29 19:41] LABS: HEMATOCRIT 12.9 % (36.0-47.0)
[2018-10-29 19:45] LABS: ABSOLUTE LYMPHOCYTES# (MANUAL) 3.3 10^3/uL (0.5-4.7); ABSOLUTE MONOCYTES # (MANUAL) 0.4 10^3/uL (0.1-1.4); BAND NEUTROPHILS % (MANUAL) 1 % (3-5); BASOPHILS % (MANUAL) 0 % (0-2); EOSINOPHILS % (MANUAL) 0 % (0-6); LYMPHOCYTES % (MANUAL) 16 % (13-45); MONOCYTES % (MANUAL) 2 % (3-13); NUCLEATED RED BLOOD CELLS 1 /100 WBC (0); SEGMENTED NEUTROPHILS % (MAN) 81 % (42-78); TOTAL CELLS COUNTED 100
[2018-10-29 19:46] LABS: ANISOCYTOSIS 3+; HYPOCHROMASIA 4+
[2018-10-29 19:47] LABS: PLATELET COMMENT ADEQUATE
[2018-10-29 19:48] LABS: HEMOGLOBIN 3.6 g/dL (12.0-15.5)
--- NOTE | 2018-10-29 19:55 | RADIOLOGY REPORT (SQ) ---
EXAM DESCRIPTION: CHEST SINGLE VIEW COMPLETED DATE/TIME: 10/29/2018 7:22 pm REASON FOR STUDY: shortness of breath COMPARISON: 06/09/2018 NUMBER OF VIEWS: One view. TECHNIQUE: Single frontal radiographic view of the chest acquired. LIMITATIONS: None. FINDINGS: LUNGS AND PLEURA: No opacities, masses or pneumothorax. No pleural effusion. MEDIASTINUM AND HILAR STRUCTURES: No masses. Contour normal. HEART AND VASCULAR STRUCTURES: Heart enlarged without failure. Normal vasculature. BONES: No acute findings. HARDWARE: None in the chest. OTHER: No other significant finding. IMPRESSION: HEART ENLARGED WITHOUT FAILURE. NO OTHER SIGNIFICANT RADIOGRAPHIC FINDING IN THE CHEST. TECHNICAL DOCUMENTATION: JOB ID: [id number] [employer]- All Rights Reserved Reading location - IP/workstation name: [email or web address]
[2018-10-29 21:49] LABS: ARTERIAL BLOOD BASE EXCESS 4.2 mmol/L; ARTERIAL BLOOD H2CO3 1.18 mmol/L (1.05-1.35); ARTERIAL BLOOD HCO3 28.3 mmol/L (20-24); ARTERIAL BLOOD O2 SATURATION 99.3 % (94-98); ARTERIAL BLOOD PCO2 39.3 mmHg (35-45); ARTERIAL BLOOD PH 7.48 (7.35-7.45); ARTERIAL BLOOD PO2 172.5 mmHg (80-100); ARTERIAL BLOOD TOTAL CO2 29.5 mmol/L (21-25)
[2018-10-29 21:54] LABS: ARTERIAL BLOOD FIO2 35%
--- NOTE | 2018-10-29 22:53 | ER Document Report ---
ED Respiratory Problem - General Chief Complaint: Shortness Of Breath Stated Complaint: SOB Time Seen by Provider: 10/29/18 18:35 Primary Care Provider: AGUSTO AGRAWAL DO [Primary Care Provider] - Follow up as needed Cannot obtain history due to: Unstable vital signs, Other - resp distress TRAVEL OUTSIDE OF THE [place] IN LAST 30 DAYS: No - HPI Patient complains to provider of: COPD Onset: This morning Duration: Continuous Initiating Event: No: Allergy, Aspiration/Choking, Exertion, Exposure to chemicals, Exposure to dust, Exposure to fumes, Exposure to mold, Exposure to smoke, Out of meds, Sports/exercise, URI, Other Quality of pain: denies: No pain, Achy, Burning, Cramping, Dull, Fullness, Pressure, Sharp, Stabbing, Throbbing, Other Severity: Severe Context: Hx COPD. denies: DVT, Factor V Leiden, Hx asthma, Hx CHF, Malignancy, , Recent cardiac event, Recent foreign travel, Recent long distance trvl, Recent immobilization, Recent surgery, Smoker, Other Short of Breath: Severe Chest pain/discomfort: denies: Center, Constant, Heaviness, Intermittent, Left, Pain, Radiates to arm, Radiates to back, Radiates to jaw, Right, Tightness, Wo rse with deep breaths Cough: denies: Nonproductive, Productive, Stridor, Suspect aspiration Associated symptoms: Congestion, Extertional dyspnea, Hurts to breathe, Short of breath Notes: This is a 68-year-old brought in in extreme respiratory distress patient could not speak in even 1 word sentences was immediately put on oxygen sats were in the 70s therefore was placed on a BiPAP at a rate of I/E of 12-6 with a rate of 12 and 35% O2 sats quickly went up to 100% she became more alert we see the labs for ABG. He did get an in-line albuterol and Atrovent treatment. She denies any rectal bleeding or black or bloody stools - Related Data Allergies/Adverse Reactions: hydromorphone HCl [From Dilaudid] Allergy (Severe, Verified 01/12/18 09:54) Passed out Past Medical History - Social History Smoking Status: Never Smoker Family History: COPD Patient has suicidal ideation: No Patient has homicidal ideation: No - Past Medical History Cardiac Medical History: Reports: Hx Atrial Fibrillation, Hx Hypertension - MEDICATED, Hx Pulmonary Embolism - 30yrs ago Denies: Hx Congestive Heart Failure, Hx Coronary Artery Disease, Hx Heart Attack, Hx Hypercholesterolemia, Hx Peripheral Vascular Disease, Hx Heart Murmur Pulmonary Medical History: Reports: Hx Asthma, Hx Bronchitis, Hx COPD, Hx Pneumonia, Hx Tuberculosis Denies: Hx Respiratory Failure, Hx Sleep Apnea Neurological Medical History: Denies: Hx Cerebrovascular Accident, Hx Seizures Endocrine Medical History: Reports: Hx Hypothyroidism. Denies: Hx Diabetes Mellitus Type 1, Hx Diabetes Mellitus Type 2, Hx Graves' Disease, Hx Hyperthyroidism Renal/ Medical History: Denies: Hx End Stage Renal Disease, Hx Kidney Stones, Hx Peritoneal Dialysis Malignancy Medical History: Denies: Hx Lung Cancer GI Medical History: Reports: Hx Gastroesophageal Reflux Disease. Denies: Hx Hepatitis, Hx Hiatal Hernia, Hx Ulcer Musculoskeletal Medical History: Reports Hx Arthritis, Denies Hx Fibromyalgia, Denies Hx Muscular Dystrophy, Denies Hx Systemic Lupus Erythematosus Psychiatric Medical History: Reports: Hx Depression Denies: Hx Bipolar Disorder, Hx Post Traumatic Stress Disorder, Hx Schizophrenia Traumatic Medical History: Denies: Hx Fractures Infectious Medical History: Denies: Hx C-Diff, Hx Hepatitis, Hx MRSA Past Surgical History: Reports: Hx Hysterectomy, Hx Orthopedic Surgery - CARPAL TUNNEL RELEASE, GANGLION CYST REMOVAL, TRIGGER FINGER RELEASE, Hx Tubal Ligation, Hx Urinary Tract Surgery. Denies: Hx Appendectomy, Hx Bowel Surgery, Hx Section, Hx Cholecystectomy, Hx Coronary Artery Bypass Graft, Hx Gastric Bypass Surgery, Hx Herniorrhaphy, Hx Mastectomy, Hx Open Heart Surgery, Hx Pacemaker, Hx Tonsillectomy - Immunizations Hx Diphtheria, Pertussis, Tetanus Vaccination: Yes Hx Pneumococcal Vaccination: 02/22/10 Review of Systems - Review of Systems -: Yes ROS unobtainable due to patient's medical condition Physical Exam - Vital signs Vitals: Pulse Resp BP Pulse Ox 88 22 H 116/44 L 95 10/29/18 18:18 10/29/18 18:18 10/29/18 18:18 10/29/18 18:18 Notes: PHYSICAL EXAMINATION: GENERAL: Obese 68-year-old in severe respiratory distress HEAD: Atraumatic, normocephalic. EYES: Pupils equal round and reactive to light, extraocular movements intact, sclera anicteric, conjunctiva are normal. ENT: nares patent, oropharynx clear without exudates. Moist mucous membranes. NECK: Normal range of motion, supple without lymphadenopathy LUNGS: Decreased breath sounds bilaterally with faint wheezes heard and severe respiratory distress improving after BiPAP HEART: Regular rate and rhythm without murmurs ABDOMEN: Soft, nontender, normoactive bowel sounds. No guarding, no rebound. No masses appreciated. EXTREMITIES: Normal range of motion, no pitting or edema. No cyanosis. NEUROLOGICAL: No focal neurological deficits. Moves all extremities spontaneously and on command. PSYCH: Normal mood, normal affect. SKIN: Warm, Dry, normal turgor, no rashes or lesions noted. Course - Vital Signs Vital signs: Temp Pulse Resp BP Pulse Ox 97.8 F 78 20 94/47 L 100 10/29/18 21:49 10/29/18 21:49 10/29/18 21:49 10/29/18 21:49 10/29/18 21:46 - Laboratory Result Diagrams: 10/29/18 19:20 10/29/18 18:52 Laboratory results interpreted by me: 10/29/18 10/29/18 10/29/18 18:52 19:20 19:20 WBC 20.5 H RBC 1.97 L Hgb 3.6 L* Hct 12.9 L* MCV 66 L MCH 18.1 L MCHC 27.6 L RDW 25.3 H Seg Neuts % (Manual) 81 H Band Neutrophils % 1 L Monocytes % (Manual) 2 L Abs Neuts (Manual) 16.8 H ABG pH ABG pO2 ABG HCO3 ABG Total CO2 ABG O2 Saturation Calcium 8.2 L Alkaline Phosphatase 135 H Creatine Kinase 28 L Total Protein 6.0 L Albumin 3.4 L Crossmatch See Detail 10/29/18 21:32 WBC RBC Hgb Hct MCV MCH MCHC RDW Seg Neuts % (Manual) Band Neutrophils % Monocytes % (Manual) Abs Neuts (Manual) ABG pH 7.48 H ABG pO2 172.5 H ABG HCO3 28.3 H ABG Total CO2 29.5 H ABG O2 Saturation 99.3 H Calcium Alkaline Phosphatase Creatine Kinase Total Protein Albumin Crossmatch - Transfer of Care Notes: 10/29/18 22:53 Note patient had a EKG showing normal sinus rhythm with some occasional PVCs rates the normal limits area please note after BiPAP we did obtain her hemoglobin being 3.6 and it was repeated and was confirmed therefore she was started on 2 units of packed red blood cells. I have then spoken with Dr. Andrews who will admit the patient. Discharge - Discharge Clinical Impression: Respiratory failure, Anemia, blood loss, COPD exacerbation Condition: Fair Disposition: ADMITTED INPATIENT Admitting Provider: Juliana (Hospitalist) Unit Admitted: Medical Floor Referrals: AGUSTO AGRAWAL DO [Primary Care Provider] - Follow up as needed
[2018-10-30] MEDS ORDERED: TEMAZEPAM 15 MG CAPSULE PO PRN (01:43)
[2018-10-30] MEDS ORDERED: ONDANSETRON HCL INJ/PF 4 MG/2 ML SDV IV PRN (01:43)
[2018-10-30] MEDS ORDERED: MAGNESIUM HYDROXIDE SUSP 30 ML UDCUP PO PRN (01:43)
[2018-10-30] MEDS ORDERED: NORMAL SALINE 250 ML IV PRN ×2 (01:50)
[2018-10-30] MEDS ORDERED: ACETAMINOPHEN 325 MG TABLET PO PRN (01:50)
[2018-10-30] MEDS ORDERED: FUROSEMIDE 20 MG TABLET PO PRN (01:50)
[2018-10-30] MEDS ORDERED: DIPHENHYDRAMINE HCL 25 MG CAPSULE PO PRN (01:50)
[2018-10-30 02:09] LABS: ABSOLUTE RETICS # 0.077 10^6/uL (0.028-0.122); RETICULOCYTE COUNT (AUTO) 3.92 % (0.66-2.85)
[2018-10-30 02:10] LABS: IRON(TIBC) 14.1 ug/dL (37-170)
[2018-10-30 02:49] LABS: FERRITIN 3.14 ng/mL (11.1-264.0)
[2018-10-30 03:19] LABS: FOLATE 7.01 ng/mL (>2.76)
[2018-10-30] MEDS: METHYLPREDNISOLONE INJ 40 MG/1 ML SDV IV SCH ×4 (03:29→21:04)
--- NOTE | 2018-10-30 04:04 | PDOC H&P ---
History of Present Illness Admission Date/PCP: 10/29/18 23:03 AGUSTO AGRAWAL DO Patient complains of: Dyspnea History of Present Illness: LEVI GIBBONS is a 68 year old female who presented to the emergency room with acute dyspnea. She and her family admit that she began experiencing dyspnea on the morning of admission. Her dyspnea was continuous and became progressively worse over the course of the day and by early evening he did become severe resulting in her emergency room visit. The dyspnea has been accompanied by severe air hunger, a vague generalized chest pain with inspiration, wheezing as well as the inability to speak more than 1 or 2 words at a time. Her dyspnea is made worse by exertion. She denies other associated or accompanying signs or symptoms. She admits prior similar episodes with exacerbations of her COPD. She has not identified any additional aggravating or ameliorating factors for her dyspnea. In the emergency room patient was found to be in severe re spiratory distress with hypoxia and required treatment with BiPAP. She received numerous nebulizer therapies and has improved but is still requiring further treatment. Additionally she was found to have a hemoglobin of 3.6 with a stool for occult blood that was negative. Patient was subsequently admitted to the hospital for further evaluation and treatment. Past Medical History Cardiac Medical History: Reports: Atrial Fibrillation, Hypertension, Pulmonary Embolism - 30+yrs ago Denies: Congestive Heart Failure, Coronary Artery Disease, Myocardial Infa rction, Hyperlipidema, Peripheral Vascular Disease, Heart Murmur Pulmonary Medical History: Reports: Asthma, Bronchitis, Chronic Obstructive Pulmonary Disease (COPD), Pneumonia, Respiratory Failure, Tuberculosis Denies: Sleep Apnea EENT Medical History: Denies: Cataracts, Ears - Hearing aids Neurological Medical History: Denies: Hemorrhagic CVA, Ischemic CVA, Multiple Sclerosis, Seizures Endocrine Medical History: Reports: Hypothyroidism, Obesity Denies: Diabetes Mellitus Type 1, Diabetes Mellitus Type 2, Hyperthyroidism Renal/ Medical History: Denies: Chronic Kidney Disease, End Stage Renal Disease, Nephrolithiasis Malignancy Medical History: Reports: None GI Medical History: Reports: Gastroesophageal Reflux Disease Denies: Cirrhosis, Crohn's Disease, Diverticulitis, Hepatitis, Hiatal Hernia, Peptic Ulcer Disease, Ulcerative Colitis Musculoskeltal Medical History: Reports: Arthritis Denies: Fibromyalgia, Gout Skin Medical History: Denies: Eczema, Psoriasis Psychiatric Medical History: Reports: Depression, Tobacco Dependency Denies: Alcohol Dependency, Substance Abuse Traumatic Medical History: Reports: None Hematology: Reports: Anemia - Myelodysplastic syndrome Denies: Bleeding Tendencies Infectious Medical History: Reports: None Past Surgical History Past Surgical History: Reports: Hysterectomy, Orthopedic Surgery - CARPAL TUNNEL RELEASE, GANGLION CYST REMOVAL, TRIGGER FINGER RELEASE, Tubal Ligation Social History Information Source: Patient Lives with: Family Smoking Status: Former Smoker - Quit 3 months ago Frequency of Alcohol Use: None Hx Recreational Drug Use: No Drugs: None Hx Prescription Drug Abuse: No - Advance Directive Resuscitation Status: Full Code Family History Family History: CAD, COPD, DM, Hypertension. denies: Malignancy Parental Family History Reviewed: Yes Children Family History Reviewed: No Sibling(s) Family History Reviewed.: Yes Medication/Allergy Home Medications: Albuterol Sulfate [Proair HFA Inhalation Aerosol 8.5 gm MDI] 2 puff IH Q4HP PRN 06/09/18 Apixaban [Eliquis 5 mg Tablet] 5 mg PO Q12 06/09/18 Budesonide/Formoterol Fumarate [Symbicort HFA 160-4.5 mcg Inhaler 6 gm] 2 puff IH Q12 06/09/18 Buspirone HCl [Buspar 5 mg Tablet] 5 mg PO BID 06/09/18 Cetirizine HCl [Zyrtec 10 mg Tablet] 10 mg PO DAILY 06/09/18 Furosemide [Lasix 20 mg Tablet] 20 mg PO DAILY 06/09/18 Isosorbide Mononitrate [Ismo 20 mg Tablet] 10 mg PO BID 06/09/18 Levothyroxine Sodium [Synthroid 0.112 mg Tablet] 0.112 mg PO Q6AM 06/09/18 Meclizine HCl [Antivert 25 mg Tablet] 25 mg PO TIDP PRN 06/09/18 Pantoprazole Sodium [Protonix [address] Tablet] 40 mg PO Q6AM 06/09/18 Prednisone [Deltasone 10 mg Tablet] 10 mg PO DAILY 06/09/18 Roflumilast [Daliresp 500 mcg Tablet] 500 mcg PO DAILY 06/09/18 Ropinirole HCl [Requip 2 mg Tablet] 2 mg PO Q8 06/09/18 Diltiazem HCl [Cardizem Cd 240 mg Capsule.cr] 240 mg PO Q12 #60 capsule.cr 06/12/18 Ipratropium/Albuterol Sulfate [Duoneb 3 ml Ampul] 3 ml NEB [id number] #25 vial.neb 06/12/18 Levofloxacin [Levaquin 750 mg Tablet] 750 mg PO QHS #3 tablet 06/12/18 Nicotine [Nicoderm 21 mg/24 Hr Transderm Patch] 1 each TD DAILY #30 patch.td24 06/12/18 Nystatin [Mycostatin 500,000 Unit/5 ml Susp Udcup] 100,000 unit PO Q6 udc 06/12/18 Tiotropium Juda [Spiriva Handihaler 5 Cap/Kit (18 Mcg/Cap)] 1 cap IH DAILY #5 capsule 06/12/18 Allergies/Adverse Reactions: hydromorphone HCl [From Dilaudid] Allergy (Severe, Verified 01/12/18 09:54) Passed out Review of Systems Constitutional: ABSENT: chills, fever(s) Eyes: ABSENT: visual disturbances, other - Eye pain Ears: ABSENT: hearing changes, other - Ear pain Nose, Mouth, and Throat: ABSENT: mouth pain, sore throat Cardiovascular: PRESENT: as per HPI, chest pain, dyspnea on exertion. ABSENT: edema, orthropnea, palpitations Respiratory: PRESENT: as per HPI, dyspnea. ABSENT: cough, hemoptysis, sputum Gastrointestinal: ABSENT: abdominal pain, constipation, diarrhea, nausea, vomiting Genitourinary: ABSENT: dysuria, hematuria Musculoskeletal: ABSENT: back pain, joint swelling, muscle weakness Integumentary: ABSENT: pruritus, rash Neurological: ABSENT: confusion, convulsions, focal weakness, memory loss, syncope Psychiatric: ABSENT: anxiety, depression Endocrine: ABSENT: cold intolerance, heat intolerance Hematologic/Lymphatic: ABSENT: easy bleeding, easy bruising Allergic/Immunologic: ABSENT: seasonal rhinorrhea Physical Exam Vital Signs: Temp Pulse Resp BP Pulse Ox 97.9 F 77 13 112/67 99 10/30/18 00:48 10/30/18 00:48 10/30/18 00:48 10/30/18 00:48 10/30/18 00:01 Intake & Output 10/28/18 10/29/18 10/30/18 23:59 23:59 23:59 Intake Total 0 300 Balance 0 300 Weight 99.79 kg General appearance: PRESENT: no acute distress, cooperative, obese, other - Patient is on BiPAP and appears very pale Head exam: PRESENT: atraumatic, normocephalic Eye exam: PRESENT: conjunctiva pale. ABSENT: conjunctival injection, scleral icterus Ear exam: PRESENT: normal external ear exam. ABSENT: bleeding, drainage Mouth exam: PRESENT: dry mucosa, neck supple Neck exam: ABSENT: thyromegaly, tracheal deviation Respiratory exam: PRESENT: decreased breath sounds - Mildly decreased breath sounds present throughout all wylie consistent with mild to moderate COPD, prolonged expiratory phas - Moderately prolonged expiratory phase present in all wylie, symmetrical, wheezes - Expiratory wheezes present in all wylie Cardiovascular exam: PRESENT: irregular rhythm - Irregularly irregular rate and rhythm. ABSENT: clicks, gallop, rubs Pulses: PRESENT: normal radial pulses, normal dorsalis pedis pul Vascular exam: PRESENT: pallor - Patient shows significant pallor on evaluation. ABSENT: normal capillary refill - Capillary refill is mildly prolonged at just over 3 seconds GI/Abdominal exam: PRESENT: normal bowel sounds, soft Rectal exam: PRESENT: deferred Extremities exam: ABSENT: joint swelling, pedal edema, tenderness Musculoskeletal exam: ABSENT: deformity, dislocation Neurological exam: PRESENT: alert, oriented to person, oriented to place, oriented to time, oriented to situation, CN II-XII grossly intact. ABSENT: motor sensory deficit Psychiatric exam: PRESENT: appropriate affect, normal mood Skin exam: PRESENT: dry, intact, pallor - As previously noted, warm. ABSENT: jaundice, rash, urticaria Results Laboratory Results: 10/29/18 19:20 10/29/18 18:52 10/29/18 10/29/18 10/29/18 18:52 18:52 19:20 WBC Cancelled RBC Cancelled Hgb Cancelled Hct Cancelled MCV Cancelled MCH Cancelled MCHC Cancelled RDW Cancelled Plt Count Cancelled Seg Neutrophils % Cancelled Carbonic Acid HCO3/H2CO3 Ratio ABG pH ABG pCO2 ABG pO2 ABG HCO3 ABG O2 Saturation ABG Base Excess FiO2 Sodium 138.5 Potassium 4.1 Chloride 102 Carbon Dioxide 29 Anion Gap 8 BUN 14 Creatinine 0.59 Est GFR ( Amer) > 60 Glucose 86 Calcium 8.2 L Total Bilirubin 0.4 AST 22 Alkaline Phosphatase 135 H Total Protein 6.0 L Albumin 3.4 L Blood Type O POSITIVE Antibody Screen NEGATIVE 10/29/18 10/29/18 10/29/18 19:20 20:13 21:32 WBC 20.5 H RBC 1.97 L Hgb 3.6 L* Hct 12.9 L* MCV 66 L MCH 18.1 L MCHC 27.6 L RDW 25.3 H Plt Count 313 Seg Neutrophils % Not Reportable Carbonic Acid Cancelled 1.18 HCO3/H2CO3 Ratio Cancelled 23:1 ABG pH Cancelled 7.48 H ABG pCO2 Cancelled 39.3 ABG pO2 Cancelled 172.5 H ABG HCO3 Cancelled 28.3 H ABG O2 Saturation Cancelled 99.3 H ABG Base Excess Cancelled 4.2 FiO2 Cancelled 35% Sodium Potassium Chloride Carbon Dioxide Anion Gap BUN Creatinine Est GFR ( Amer) Glucose Calcium Total Bilirubin AST Alkaline Phosphatase Total Protein Albumin Blood Type Antibody Screen 10/29/18 10/29/18 18:52 18:52 Creatine Kinase 28 L CK-MB (CK-2) 0.63 Troponin I < 0.012 NT-Pro-B Natriuret Pep 562 Impressions: Chest X-Ray 10/29/18 00:00 IMPRESSION: HEART ENLARGED WITHOUT FAILURE. NO OTHER SIGNIFICANT RADIOGRAPHIC FINDING IN THE CHEST. Assessment and Plan - Diagnosis (1) COPD exacerbation Is this a current diagnosis for this admission?: Yes Plan: Patient will be treated with an aggressive pulmonary toilet utilizing nebulized Xopenex, Atrovent and Pulmicort. She will be reevaluated clinically throughout her hospital course. She will also receive IV Solu-Medrol and respiratory support with supplemental oxygen and/or advanced noninvasive airway pressure devices such as BiPAP to maintain an adequate oxygen saturation of 90 to 94%. Her oxygen saturation be monitored closely throughout her hospital course. Daily CBCs, metabolic profiles and magnesium levels will be obtained. (2) Acute respiratory failure with hypoxia and hypercapnia Is this a current diagnosis for this admission?: Yes Plan: She will receive respiratory support with supplemental oxygen and/or advanced noninvasive airway pressure devices such as BiPAP to maintain an adequate oxygen saturation of 90 to 94%. Her oxygen saturation be monitored closely throughout her hospital course. (3) Myelodysplasia (myelodysplastic syndrome) Is this a current diagnosis for this admission?: Yes Plan: Patient will be transfused with 4 units of packed red blood cells initially and a hematology consultation can be obtained on Wednesday. An anemia profile will be obtained. (4) Chronic atrial fibrillation Is this a current diagnosis for this admission?: Yes Plan: Patient be continued on her usual therapy for her chronic atrial fibrillation. (5) Hypothyroidism Qualifiers: Hypothyroidism type: unspecified Qualified Code(s): E03.9 - Hypothyroidism, unspecified Is this a current diagnosis for this admission?: Yes Plan: Patient will be continued on her usual thyroid replacement hormone. A thyroid profile will be obtained to evaluate the efficacy of her current therapy. (6) HTN (hypertension) Qualifiers: Hypertension type: essential hypertension Qualified Code(s): I10 - Essential (primary) hypertension Is this a current diagnosis for this admission?: Yes Plan: Patient be continued on her usual antihypertensive regimen. Patient's blood pressure be monitored closely throughout her hospital stay. - Time Time Spent with patient: 25-34 minutes Medications reviewed and adjusted accordingly: Yes Anticipated discharge: Home - Inpatient Certification Based on my medical assessment, after consideration of the patient's comorbidities, presenting symptoms, or acuity I expect that the services needed warrant INPATIENT care.: Yes I certify that my determination is in accordance with my understanding of Medicare's requirements for reasonable and necessary INPATIENT services [42 CFR 412.3e].: Yes Medical Necessity: Significant Comorbidiites Make Outpatient Treatment Too Risky, Need for Nebulizer Therapy and Monitoring of Response, Risk of Complication if Not Cared For in Hospital, Other - Transfusions
[2018-10-30] MEDS: HEPARIN SOD (PORCINE) 5,000 UNIT/ML 1 ML VIAL SUBCUT SCH ×3 (08:04→21:04)
[2018-10-30] MEDS: BUDESONIDE NEB 0.5 MG/2 ML AMPUL NEB SCH ×2 (08:42→19:57)
[2018-10-30] MEDS: LEVALBUTEROL HCL NEB 1.25 MG/3 ML AMPUL NEB SCH ×3 (08:42→23:54)
[2018-10-30] MEDS: IPRATROPIUM BROMIDE 0.02% NEB 0.5 MG/2.5 ML AMPUL NEB SCH ×3 (08:42→23:54)
--- NOTE | 2018-10-30 09:29 | Progress Note Acknowledgement ---
Progress Note Acknowledgement Progess Note Acknowledgement: I, the undersigned member of the medical staff with appropriate privileges and with supervisory authority over [Simon Winslow], a dependent practice allied health professional, acknowledge that I have reviewed the progress notes entered on this patient, and in my professional judgment believe that the assessment made and/or any care evidenced was appropriate
--- NOTE | 2018-10-30 09:30 | Progress Note ---
Provider Note Provider Note: Patient met earlier this a.m. She is received a total of 4 units of packed red cells I will continue to follow her respiratory status she is on BiPAP at this time. Awaiting a.m. labs will make change plan of care based on those findings.
[2018-10-30] MEDS: FAMOTIDINE 20 MG TABLET PO SCH ×2 (09:36→21:04)
[2018-10-30] MEDS: DOCUSATE SODIUM 100 MG CAPSULE PO SCH ×2 (09:36→17:22)
[2018-10-30] MEDS ORDERED: FUROSEMIDE INJ/PF 20 MG/2 ML SDV ONE (17:16)
[2018-10-30] MEDS ORDERED: FUROSEMIDE INJ/PF 20 MG/2 ML SDV IV ONE (17:45)
--- NOTE | 2018-10-30 18:40 | EKG REPORT ---
SEVERITY:- ABNORMAL ECG - SINUS RHYTHM : Confirmed by: Shanna Grace 30-Oct-2018 18:40:26
[2018-10-30 19:46] LABS: HEMATOCRIT 26.2 % (36.0-47.0); MEAN CORPUSCULAR HEMOGLOBIN 23.7 pg (27.0-33.4); MEAN CORPUSCULAR HGB CONC 31.2 g/dL (32.0-36.0); PLATELET COUNT 272 10^3/uL (150-450); RED BLOOD COUNT 3.45 10^6/uL (3.72-5.28); RED CELL DISTRIBUTION WIDTH 26.1 % (11.5-14.0); WHITE BLOOD COUNT 23.4 10^3/uL (4.0-10.5)
[2018-10-30 19:48] LABS: HEMOGLOBIN 8.2 g/dL (12.0-15.5); MEAN CORPUSCULAR VOLUME 76 fl (80-97)
[2018-10-30] MEDS: LEVALBUTEROL HCL NEB 0.63 MG/3 ML AMPUL NEB PRN (19:57)
[2018-10-30 20:19] LABS: ABSOLUTE LYMPHOCYTES# (MANUAL) 0.5 10^3/uL (0.5-4.7); ABSOLUTE MONOCYTES # (MANUAL) 0.5 10^3/uL (0.1-1.4); ANISOCYTOSIS 3+; BASOPHILS % (MANUAL) 0 % (0-2); EOSINOPHILS % (MANUAL) 0 % (0-6); HYPOCHROMASIA 2+; LYMPHOCYTES % (MANUAL) 2 % (13-45); MONOCYTES % (MANUAL) 2 % (3-13); NUCLEATED RED BLOOD CELLS 1 /100 WBC (0); SEGMENTED NEUTROPHILS % (MAN) 96 % (42-78); TOTAL CELLS COUNTED 100
[2018-10-30 20:20] LABS: PLATELET COMMENT ADEQUATE
[2018-10-31] MEDS: METHYLPREDNISOLONE INJ 40 MG/1 ML SDV IV SCH ×4 (05:44→22:35)
[2018-10-31] MEDS: HEPARIN SOD (PORCINE) 5,000 UNIT/ML 1 ML VIAL SUBCUT SCH ×3 (05:45→22:35)
[2018-10-31 08:12] LABS: HEMATOCRIT 27.5 % (36.0-47.0); HEMOGLOBIN 8.6 g/dL (12.0-15.5); MEAN CORPUSCULAR HEMOGLOBIN 23.8 pg (27.0-33.4); MEAN CORPUSCULAR HGB CONC 31.4 g/dL (32.0-36.0); MEAN CORPUSCULAR VOLUME 76 fl (80-97); PLATELET COUNT 282 10^3/uL (150-450); RED BLOOD COUNT 3.63 10^6/uL (3.72-5.28); RED CELL DISTRIBUTION WIDTH 26.8 % (11.5-14.0); WHITE BLOOD COUNT 27.3 10^3/uL (4.0-10.5)
[2018-10-31 08:28] LABS: ANION GAP 6 (5-19); BLOOD UREA NITROGEN 15 mg/dL (7-20); CARBON DIOXIDE 31 mmol/L (22-30); CHLORIDE 102 mmol/L (98-107); CHOLESTEROL 195.19 mg/dL (0-200); GLUCOSE 126 mg/dL (75-110); POTASSIUM 4.2 mmol/L (3.6-5.0); TRIGLYCERIDES 104 mg/dL (<150)
[2018-10-31] MEDS: IPRATROPIUM BROMIDE 0.02% NEB 0.5 MG/2.5 ML AMPUL NEB SCH ×2 (08:32→16:31)
[2018-10-31] MEDS: LEVALBUTEROL HCL NEB 1.25 MG/3 ML AMPUL NEB SCH ×2 (08:32→16:31)
[2018-10-31] MEDS: BUDESONIDE NEB 0.5 MG/2 ML AMPUL NEB SCH ×2 (08:32→19:27)
[2018-10-31 08:40] LABS: DIRECT LDL 135 mg/dL (<100)
[2018-10-31] MEDS: DOCUSATE SODIUM 100 MG CAPSULE PO SCH ×2 (09:36→17:38)
[2018-10-31] MEDS: FAMOTIDINE 20 MG TABLET PO SCH ×2 (09:36→22:34)
[2018-10-31 09:46] LABS: FREE T3 2.19 pg/mL (2.77-5.27); FREE T4 (FREE THYROXINE) 1.26 ng/dL (0.78-2.19)
[2018-10-31 09:59] LABS: THYROID STIMULATING HORMONE 0.05 uIU/mL (0.47-4.68)
[2018-10-31] MEDS ORDERED: FERRIC CARBOXYMALTOSE INJ 750 MG/15 ML VIAL IV SCH (10:45)
--- NOTE | 2018-10-31 10:56 | PDOC PROGRESS REPORT ---
Subjective Progress Note for:: 10/31/18 Subjective:: 10/31/2018-patient claims weakness a.m. Reason For Visit: ANEMIA, ACUTE COPD Physical Exam Vital Signs: Temp Pulse Resp BP Pulse Ox 98.2 F 130 H 19 147/71 H 97 10/31/18 07:32 10/31/18 08:32 10/31/18 09:27 10/31/18 07:32 10/31/18 09:27 Intake & Output 10/30/18 10/31/18 11/01/18 06:59 06:59 06:59 Intake Total 910 3695 Output Total 1000 2400 Balance -90 1295 Weight 94.9 kg 96.2 kg General appearance: PRESENT: no acute distress, well-developed, well-nourished Neck exam: ABSENT: carotid bruit, JVD, lymphadenopathy, thyromegaly Respiratory exam: PRESENT: clear to auscultation armand. ABSENT: rales, rhonchi, wheezes Cardiovascular exam: PRESENT: RRR. ABSENT: diastolic murmur, rubs, systolic murmur Pulses: PRESENT: +1 pedal pulses bilateral Vascular exam: PRESENT: normal capillary refill GI/Abdominal exam: PRESENT: normal bowel sounds, soft. ABSENT: distended, guarding, mass, organolmegaly, rebound, tenderness Extremities exam: PRESENT: full ROM. ABSENT: clubbing, pedal edema Neurological exam: PRESENT: alert, awake, oriented to person, oriented to place, oriented to time, oriented to situation, CN II-XII grossly intact. ABSENT: motor sensory deficit Psychiatric exam: PRESENT: appropriate affect, normal mood. ABSENT: homicidal ideation, suicidal ideation Skin exam: PRESENT: dry, intact, warm. ABSENT: cyanosis, rash Results Laboratory Results: 10/31/18 07:38 10/31/18 07:38 10/29/18 10/30/18 10/31/18 19:20 19:22 07:38 WBC 23.4 H 27.3 H RBC 3.45 L 3.63 L Hgb 8.2 L D 8.6 L Hct 26.2 L 27.5 L MCV 76 L D 76 L MCH 23.7 L 23.8 L MCHC 31.2 L 31.4 L RDW 26.1 H 26.8 H Plt Count 272 282 Seg Neutrophils % Not Reportable Sodium Potassium Chloride Carbon Dioxide Anion Gap BUN Creatinine Est GFR ( Amer) Glucose Calcium Magnesium Triglycerides Cholesterol LDL Cholesterol Direct VLDL Cholesterol HDL Cholesterol TSH Free T4 Free T3 pg/mL Blood Type O POSITIVE Antibody Screen NEGATIVE 10/31/18 10/31/18 07:38 07:38 WBC RBC Hgb Hct MCV MCH MCHC RDW Plt Count Seg Neutrophils % Sodium 139.1 Potassium 4.2 Chloride 102 Carbon Dioxide 31 H Anion Gap 6 BUN 15 Creatinine 0.55 Est GFR ( Amer) > 60 Glucose 126 H Calcium 9.0 Magnesium 2.4 H Triglycerides 104 Cholesterol 195.19 LDL Cholesterol Direct 135 H VLDL Cholesterol 21.0 HDL Cholesterol 61 TSH 0.05 L Free T4 1.26 Free T3 pg/mL 2.19 L Blood Type Antibody Screen 10/29/18 10/29/18 18:52 18:52 Creatine Kinase 28 L CK-MB (CK-2) 0.63 Troponin I < 0.012 NT-Pro-B Natriuret Pep 562 Impressions: Chest X-Ray 10/29/18 00:00 IMPRESSION: HEART ENLARGED WITHOUT FAILURE. NO OTHER SIGNIFICANT RADIOGRAPHIC FINDING IN THE CHEST. Assessment and Plan - Diagnosis (1) COPD exacerbation Is this a current diagnosis for this admission?: Yes Plan: Patient will be treated with an aggressive pulmonary toilet utilizing nebulized Xopenex, Atrovent and Pulmicort. She will be reevaluated clinically throughout her hospital course. She will also receive IV Solu-Medrol and respiratory support with supplemental oxygen and/or advanced noninvasive airway pressure devices such as BiPAP to maintain an adequate oxygen saturation of 90 to 94%. Her oxygen saturation be monitored closely throughout her hospital course. Daily CBCs, metabolic profiles and magnesium levels will be obtained. 10/31/2018-improved today. Patient off BiPAP. Continue bronchodilators, IV corticosteroids and pressure support as needed with oxygen and or BiPAP. Daily CBCs metabolic panels and magnesium levels. Will follow (2) Acute respiratory failure with hypoxia and hypercapnia Is this a current diagnosis for this admission?: Yes Plan: She will receive respiratory support with supplemental oxygen and/or advanced noninvasive airway pressure devices such as BiPAP to maintain an adequate oxygen saturation of 90 to 94%. Her oxygen saturation be monitored closely throughout her hospital course. 10/31/2018-improved today. Patient remains on supplemental oxygen this time. Will use BiPAP as needed. Continue to follow (3) Myelodysplasia (myelodysplastic syndrome) Is this a current diagnosis for this admission?: Yes Plan: Patient will be transfused with 4 units of packed red blood cells initially and a hematology consultation can be obtained on Wednesday. An anemia profile will be obtained. 10/31/2018-patient given 4 units packed cells total hemoglobin at 8 this morning. Patient also has iron deficiency anemia. Hematology consult outpatient basis. (4) Chronic atrial fibrillation Is this a current diagnosis for this admission?: Yes Plan: Patient be continued on her usual therapy for her chronic atrial fibrillation. 10/31/2018-continue home medications. (5) Hypothyroidism Qualifiers: Hypothyroidism type: unspecified Qualified Code(s): E03.9 - Hypothyroidism, unspecified Is this a current diagnosis for this admission?: Yes Plan: Patient will be continued on her usual thyroid replacement hormone. A thyroid profile will be obtained to evaluate the efficacy of her current therapy. 10/31/2018-patient showing a subclinical hyperthyroidism at this time. I do not see a medication on her medication reconciliation for hypothyroidism I will have nurses check with patient's pharmacy. (6) HTN (hypertension) Qualifiers: Hypertension type: essential hypertension Qualified Code(s): I10 - Essential (primary) hypertension Is this a current diagnosis for this admission?: Yes Plan: Patient be continued on her usual antihypertensive regimen. Patient's blood pressure be monitored closely throughout her hospital stay. 10/31/2018-continue home medications. - Time Time Spent with patient: 15-24 minutes - Inpatient Certification Based on my medical assessment, after consideration of the patient's comorbidities, presenting symptoms, or acuity I expect that the services needed warrant INPATIENT care.: Yes I certify that my determination is in accordance with my understanding of Medicare's requirements for reasonable and necessary INPATIENT services [42 CFR 412.3e].: Yes Medical Necessity: Other - IV antibiotics, further work-up for leukocytosis
[2018-10-31] MEDS: CEFTRIAXONE 2 GM/D5W RTU 2 GM/50 ML RTUPB IV SCH (11:50)
[2018-10-31] MEDS ORDERED: FERRIC CARBOXYMALTOSE 750 MG in NORMAL SALINE 250 ML IV ONE (12:00)
--- NOTE | 2018-10-31 12:46 | RADIOLOGY REPORT (SQ) ---
EXAM DESCRIPTION: CHEST SINGLE VIEW COMPLETED DATE/TIME: 10/31/2018 11:22 am REASON FOR STUDY: Leukocytosis COMPARISON: 10/29/2018 TECHNIQUE: Single frontal radiographic view of the chest acquired. NUMBER OF VIEWS: One view. LIMITATIONS: None. FINDINGS: LUNGS AND PLEURA: No pneumothorax. No consolidation or pleural effusion. MEDIASTINUM AND HILAR STRUCTURES: Stable. HEART AND VASCULAR STRUCTURES: Stable. BONES: No acute findings. HARDWARE: None in the chest. OTHER: No other significant finding. IMPRESSION: NO ACUTE FINDINGS. TECHNICAL DOCUMENTATION: JOB ID: [id number] [id number] 2010 [employer]- All Rights Reserved Reading location - IP/workstation name: [email or web address]
[2018-10-31 13:32] LABS: PATH REVIEW PATHOLOGIST REVIEWED
[2018-10-31 13:51] LABS: APPEARANCE,URINE CLEAR; BILIRUBIN,URINE NEGATIVE (NEGATIVE); COLOR,URINE YELLOW; GLUCOSE, URINE NEGATIVE (NEGATIVE); KETONES,URINE NEGATIVE (NEGATIVE); LEUKOCYTE ESTERASE,URINE NEGATIVE (NEGATIVE); NITRITE,URINE NEGATIVE (NEGATIVE); PROTEIN,URINE 30 mg/dL (NEGATIVE); UROBILINOGEN,URINE NEGATIVE mg/dL (<2.0)
[2018-10-31] MEDS: LEVALBUTEROL HCL NEB 0.63 MG/3 ML AMPUL NEB PRN (19:27)
[2018-11-01] MEDS: IPRATROPIUM BROMIDE 0.02% NEB 0.5 MG/2.5 ML AMPUL NEB SCH ×3 (00:21→16:06)
[2018-11-01] MEDS: LEVALBUTEROL HCL NEB 1.25 MG/3 ML AMPUL NEB SCH ×3 (00:21→16:06)
[2018-11-01] MEDS: HEPARIN SOD (PORCINE) 5,000 UNIT/ML 1 ML VIAL SUBCUT SCH ×3 (05:11→21:46)
[2018-11-01 06:18] LABS: HEMATOCRIT 27.4 % (36.0-47.0); HEMOGLOBIN 8.5 g/dL (12.0-15.5); MEAN CORPUSCULAR HGB CONC 31.1 g/dL (32.0-36.0); MEAN CORPUSCULAR VOLUME 77 fl (80-97); PLATELET COUNT 270 10^3/uL (150-450); RED BLOOD COUNT 3.56 10^6/uL (3.72-5.28); RED CELL DISTRIBUTION WIDTH 27.7 % (11.5-14.0)
[2018-11-01 06:42] LABS: ANION GAP 8 (5-19); BLOOD UREA NITROGEN 20 mg/dL (7-20); CALCIUM 8.7 mg/dL (8.4-10.2); CARBON DIOXIDE 30 mmol/L (22-30); CHLORIDE 100 mmol/L (98-107); GLUCOSE 160 mg/dL (75-110); POTASSIUM 4.1 mmol/L (3.6-5.0)
[2018-11-01 07:04] LABS: WHITE BLOOD COUNT 34.4 10^3/uL (4.0-10.5)
[2018-11-01] MEDS: BUDESONIDE NEB 0.5 MG/2 ML AMPUL NEB SCH ×2 (08:30→20:13)
[2018-11-01] MEDS: DOCUSATE SODIUM 100 MG CAPSULE PO SCH ×2 (09:17→17:07)
[2018-11-01] MEDS: FAMOTIDINE 20 MG TABLET PO SCH ×2 (09:17→21:46)
[2018-11-01] MEDS: CEFTRIAXONE 2 GM/D5W RTU 2 GM/50 ML RTUPB IV SCH (12:02)
[2018-11-01] MEDS: METHYLPREDNISOLONE INJ 40 MG/1 ML SDV IV SCH ×2 (13:54→21:45)
[2018-11-01] MEDS: FLUCONAZOLE 100 MG TABLET PO SCH (13:55)
--- NOTE | 2018-11-01 17:35 | PDOC PROGRESS REPORT ---
Subjective Progress Note for:: 11/01/18 Subjective:: This is a 68-year-old female with a past medical history of COPD, chronic atrial fibrillation, hypothyroidism and myelodysplasia who presented with increasing shortness of breath. Patient was admitted for COPD exacerbation. No acute event overnight. This morning, she says that she still feels short of breath and has not felt significantly better compared to yesterday. She does continue to have bilateral wheezing and decreased breath sounds upon examination. She denies chest pain. She is complaining of mild odynophagia and on exam is noted to have oral thrush. Reason For Visit: ANEMIA, ACUTE COPD Physical Exam Vital Signs: Temp Pulse Resp BP Pulse Ox 97.5 F 105 H 20 148/85 H 97 11/01/18 13:00 11/01/18 16:06 11/01/18 16:06 11/01/18 13:00 11/01/18 16:06 Intake & Output 10/31/18 11/01/18 11/02/18 06:59 06:59 06:59 Intake Total 3695 1035 50 Output Total 2400 1700 620 Balance 1295 -665 -570 Weight 212 lb 1.355 oz 206 lb 2.115 oz General appearance: PRESENT: no acute distress, well-developed, well-nourished Head exam: PRESENT: atraumatic, normocephalic Eye exam: PRESENT: conjunctiva pink, EOMI, PERRLA. ABSENT: scleral icterus Ear exam: PRESENT: normal external ear exam Mouth exam: PRESENT: moist, tongue midline Neck exam: ABSENT: carotid bruit, JVD, lymphadenopathy, thyromegaly Respiratory exam: PRESENT: decreased breath sounds, rhonchi, wheezes. ABSENT: rales Cardiovascular exam: PRESENT: RRR. ABSENT: diastolic murmur, rubs, systolic murmur Pulses: PRESENT: normal dorsalis pedis pul GI/Abdominal exam: PRESENT: normal bowel sounds, soft. ABSENT: distended, guarding, mass, organolmegaly, rebound, tenderness Rectal exam: PRESENT: deferred Extremities exam: PRESENT: full ROM. ABSENT: calf tenderness, clubbing, pedal edema Neurological exam: PRESENT: alert, awake, oriented to person, oriented to place, oriented to time, oriented to situation, CN II-XII grossly intact. ABSENT: motor sensory deficit Results Laboratory Results: 11/01/18 05:58 11/01/18 05:58 11/01/18 11/01/18 05:58 05:58 WBC 34.4 H* RBC 3.56 L Hgb 8.5 L Hct 27.4 L MCV 77 L MCH 24.0 L MCHC 31.1 L RDW 27.7 H Plt Count 270 Sodium 138.0 Potassium 4.1 Chloride 100 Carbon Dioxide 30 Anion Gap 8 BUN 20 Creatinine 0.60 Est GFR ( Amer) > 60 Glucose 160 H Calcium 8.7 Magnesium 2.4 H 10/29/18 10/29/18 18:52 18:52 Creatine Kinase 28 L CK-MB (CK-2) 0.63 Troponin I < 0.012 NT-Pro-B Natriuret Pep 562 Impressions: Chest X-Ray 10/31/18 00:00 IMPRESSION: NO ACUTE FINDINGS. Assessment and Plan - Diagnosis (1) Acute respiratory failure with hypoxia and hypercapnia Is this a current diagnosis for this admission?: Yes Plan: Cerner COPD exacerbation. Currently saturating well on 3 L of nasal cannula. BiPAP as needed. (2) COPD exacerbation Is this a current diagnosis for this admission?: Yes Plan: We will reinstate IV steroids. Continue scheduled breathing treatments. (3) Atrial fibrillation with RVR Is this a current diagnosis for this admission?: Yes Plan: Currently in sinus rhythm. (4) Chronic hypercapnic respiratory failure Is this a current diagnosis for this admission?: Yes Plan: Uses home O2 2 L. (5) HTN (hypertension) Qualifiers: Hypertension type: essential hypertension Qualified Code(s): I10 - Essential (primary) hypertension Is this a current diagnosis for this admission?: Yes Plan: Blood pressure at goal continue home meds. (6) Hypothyroidism Qualifiers: Hypothyroidism type: unspecified Qualified Code(s): E03.9 - Hypothyroidism, unspecified Is this a current diagnosis for this admission?: Yes Plan: Continue Synthroid. (7) Myelodysplasia (myelodysplastic syndrome) Is this a current diagnosis for this admission?: Yes Plan: Patient received a total of 4 units packed RBC during this admission due to low hemoglobin. (8) Thrush, oral Is this a current diagnosis for this admission?: Yes Plan: We will add Diflucan p.o. - Time Time Spent with patient: 25-34 minutes
[2018-11-02] MEDS: IPRATROPIUM BROMIDE 0.02% NEB 0.5 MG/2.5 ML AMPUL NEB SCH ×3 (00:33→16:47)
[2018-11-02] MEDS: LEVALBUTEROL HCL NEB 1.25 MG/3 ML AMPUL NEB SCH ×3 (00:33→16:47)
[2018-11-02] MEDS: HEPARIN SOD (PORCINE) 5,000 UNIT/ML 1 ML VIAL SUBCUT SCH ×3 (05:55→21:44)
[2018-11-02] MEDS: METHYLPREDNISOLONE INJ 40 MG/1 ML SDV IV SCH ×3 (05:55→21:47)
[2018-11-02 05:58] LABS: ANION GAP 9 (5-19); BLOOD UREA NITROGEN 23 mg/dL (7-20); CALCIUM 8.9 mg/dL (8.4-10.2); CARBON DIOXIDE 30 mmol/L (22-30); CHLORIDE 100 mmol/L (98-107); GLUCOSE 200 mg/dL (75-110); POTASSIUM 4.4 mmol/L (3.6-5.0)
[2018-11-02 06:27] LABS: HEMOGLOBIN 9.2 g/dL (12.0-15.5); MEAN CORPUSCULAR HEMOGLOBIN 24.4 pg (27.0-33.4); MEAN CORPUSCULAR HGB CONC 30.5 g/dL (32.0-36.0); MEAN CORPUSCULAR VOLUME 80 fl (80-97); PLATELET COUNT 283 10^3/uL (150-450); RED BLOOD COUNT 3.75 10^6/uL (3.72-5.28); RED CELL DISTRIBUTION WIDTH 27.8 % (11.5-14.0)
[2018-11-02 06:28] LABS: WHITE BLOOD COUNT 36.4 10^3/uL (4.0-10.5)
[2018-11-02] MEDS: BUDESONIDE NEB 0.5 MG/2 ML AMPUL NEB SCH ×2 (08:48→20:42)
[2018-11-02] MEDS: FAMOTIDINE 20 MG TABLET PO SCH ×2 (09:33→21:47)
[2018-11-02] MEDS: FLUCONAZOLE 100 MG TABLET PO SCH (09:33)
[2018-11-02] MEDS: DOCUSATE SODIUM 100 MG CAPSULE PO SCH ×2 (09:33→17:09)
[2018-11-02] MEDS ORDERED: ACETAMINOPHEN 325 MG TABLET PO PRN (10:48)
[2018-11-02] MEDS: CEFTRIAXONE 2 GM/D5W RTU 2 GM/50 ML RTUPB IV SCH (12:22)
--- NOTE | 2018-11-02 16:31 | PDOC PROGRESS REPORT ---
Subjective Progress Note for:: 11/02/18 Subjective:: This is a 68-year-old female with a past medical history of COPD, chronic atrial fibrillation, hypothyroidism and myelodysplasia who presented with increasing shortness of breath. Patient was admitted for COPD exacerbation. 11/01: This morning, she says that she still feels short of breath and has not felt significantly better compared to yesterday. She does continue to have bilateral wheezing and decreased breath sounds upon examination. She denies chest pain. She is complaining of mild odynophagia and on exam is noted to have oral thrush. 11/02: No acute event overnight. She says she feels slightly better today. On auscultation, there is improvement from yesterday and she has better air entry and less wheezing this morning. Reason For Visit: ANEMIA, ACUTE COPD Physical Exam Vital Signs: Temp Pulse Resp BP Pulse Ox 98.1 F 100 26 H 122/87 H 99 11/02/18 15:24 11/02/18 15:24 11/02/18 15:24 11/02/18 15:24 11/02/18 15:24 Intake & Output 11/01/18 11/02/18 11/03/18 06:59 06:59 06:59 Intake Total 1035 1512 550 Output Total 1700 2580 475 Balance -665 -1068 75 Weight 206 lb 2.115 oz 209 lb 3.499 oz General appearance: PRESENT: no acute distress, well-developed, well-nourished Head exam: PRESENT: atraumatic, normocephalic Eye exam: PRESENT: conjunctiva pink, EOMI, PERRLA. ABSENT: scleral icterus Ear exam: PRESENT: normal external ear exam Mouth exam: PRESENT: moist, tongue midline Neck exam: ABSENT: carotid bruit, JVD, lymphadenopathy, thyromegaly Respiratory exam: PRESENT: rhonchi, wheezes. ABSENT: rales Cardiovascular exam: PRESENT: RRR. ABSENT: diastolic murmur, rubs, systolic murmur Pulses: PRESENT: normal dorsalis pedis pul GI/Abdominal exam: PRESENT: normal bowel sounds, soft. ABSENT: distended, guarding, mass, organolmegaly, rebound, tenderness Rectal exam: PRESENT: deferred Extremities exam: PRESENT: full ROM. ABSENT: calf tenderness, clubbing, pedal edema Neurological exam: PRESENT: alert, awake, oriented to person, oriented to place, oriented to time, oriented to situation, CN II-XII grossly intact. ABSENT: motor sensory deficit Results Laboratory Results: 11/02/18 03:08 11/02/18 03:08 11/02/18 11/02/18 03:08 03:08 WBC 36.4 H* RBC 3.75 Hgb 9.2 L Hct 30.0 L MCV 80 MCH 24.4 L MCHC 30.5 L RDW 27.8 H Plt Count 283 Sodium 139.0 Potassium 4.4 Chloride 100 Carbon Dioxide 30 Anion Gap 9 BUN 23 H Creatinine 0.65 Est GFR ( Amer) > 60 Glucose 200 H Calcium 8.9 Magnesium 2.3 10/29/18 10/29/18 18:52 18:52 Creatine Kinase 28 L CK-MB (CK-2) 0.63 Troponin I < 0.012 NT-Pro-B Natriuret Pep 562 Impressions: Chest X-Ray 10/31/18 00:00 IMPRESSION: NO ACUTE FINDINGS. Assessment and Plan - Diagnosis (1) Acute respiratory failure with hypoxia and hypercapnia Is this a current diagnosis for this admission?: Yes Plan: Secondary to COPD exacerbation. Currently saturating well on 3 L of nasal cannula. BiPAP as needed. (2) COPD exacerbation Is this a current diagnosis for this admission?: Yes Plan: 11/01: Will reinstate IV steroids. Continue scheduled breathing treatments. 11/02: Decrease Solu-Medrol to 40 mg every 12. (3) Atrial fibrillation with RVR Is this a current diagnosis for this admission?: Yes Plan: Currently in sinus rhythm. (4) Chronic hypercapnic respiratory failure Is this a current diagnosis for this admission?: Yes Plan: Uses home O2 2 L. (5) HTN (hypertension) Qualifiers: Hypertension type: essential hypertension Qualified Code(s): I10 - Essential (primary) hypertension Is this a current diagnosis for this admission?: Yes Plan: Blood pressure at goal continue home meds. (6) Hypothyroidism Qualifiers: Hypothyroidism type: unspecified Qualified Code(s): E03.9 - Hypothyroidism, unspecified Is this a current diagnosis for this admission?: Yes Plan: Continue Synthroid. (7) Myelodysplasia (myelodysplastic syndrome) Is this a current diagnosis for this admission?: Yes Plan: Patient received a total of 4 units packed RBC during this admission due to low hemoglobin. (8) Thrush, oral Is this a current diagnosis for this admission?: Yes Plan: Continue Diflucan p.o. - Time Time Spent with patient: 25-34 minutes
[2018-11-02] MEDS: LEVALBUTEROL HCL NEB 0.63 MG/3 ML AMPUL NEB PRN (20:42)
[2018-11-03] MEDS: MAG HYDROX/AL HYDROX/SIMETH SUSP 30 ML UDCUP PO PRN ×2 (00:11→13:58)
[2018-11-03] MEDS: LEVALBUTEROL HCL NEB 1.25 MG/3 ML AMPUL NEB SCH ×3 (01:50→15:50)
[2018-11-03] MEDS: IPRATROPIUM BROMIDE 0.02% NEB 0.5 MG/2.5 ML AMPUL NEB SCH ×3 (01:50→15:50)
[2018-11-03] MEDS: HEPARIN SOD (PORCINE) 5,000 UNIT/ML 1 ML VIAL SUBCUT SCH ×3 (05:38→21:27)
[2018-11-03] MEDS: BUDESONIDE NEB 0.5 MG/2 ML AMPUL NEB SCH ×2 (08:11→20:24)
[2018-11-03] MEDS: FAMOTIDINE 20 MG TABLET PO SCH ×2 (09:39→21:28)
[2018-11-03] MEDS: METHYLPREDNISOLONE INJ 40 MG/1 ML SDV IV SCH (09:39)
[2018-11-03] MEDS: DOCUSATE SODIUM 100 MG CAPSULE PO SCH ×2 (09:39→17:24)
[2018-11-03] MEDS: FLUCONAZOLE 100 MG TABLET PO SCH (09:39)
--- NOTE | 2018-11-03 16:13 | PDOC PROGRESS REPORT ---
Subjective Progress Note for:: 11/03/18 Subjective:: This is a 68-year-old female with a past medical history of COPD, chronic atrial fibrillation, hypothyroidism and myelodysplasia who presented with increasing shortness of breath. Patient was admitted for COPD exacerbation. 11/01: This morning, she says that she still feels short of breath and has not felt significantly better compared to yesterday. She does continue to have bilateral wheezing and decreased breath sounds upon examination. She denies chest pain. She is complaining of mild odynophagia and on exam is noted to have oral thrush. 11/02: She says she feels slightly better today. On auscultation, there is improvement from yesterday and she has better air entry and less wheezing this morning. 11/03: No acute event overnight. She says she continues to feel better. Breath sounds are much better today and has minimal wheezing. She says she is returning to her baseline. Reason For Visit: ANEMIA, ACUTE COPD Physical Exam Vital Signs: Temp Pulse Resp BP Pulse Ox 98.3 F 108 H 26 H 132/79 H 99 11/03/18 11:55 11/03/18 15:50 11/03/18 15:50 11/03/18 11:55 11/03/18 15:50 Intake & Output 11/02/18 11/03/18 11/04/18 06:59 06:59 06:59 Intake Total 1512 1780 500 Output Total 2580 850 Balance -1068 930 500 Weight 209 lb 3.499 oz 209 lb 7.026 oz General appearance: PRESENT: no acute distress, well-developed, well-nourished Head exam: PRESENT: atraumatic, normocephalic Eye exam: PRESENT: conjunctiva pink, EOMI, PERRLA. ABSENT: scleral icterus Ear exam: PRESENT: normal external ear exam Mouth exam: PRESENT: moist, tongue midline Neck exam: ABSENT: carotid bruit, JVD, lymphadenopathy, thyromegaly Respiratory exam: PRESENT: rhonchi, wheezes. ABSENT: rales Cardiovascular exam: PRESENT: RRR. ABSENT: diastolic murmur, rubs, systolic murmur Pulses: PRESENT: normal dorsalis pedis pul GI/Abdominal exam: PRESENT: normal bowel sounds, soft. ABSENT: distended, guarding, mass, organolmegaly, rebound, tenderness Rectal exam: PRESENT: deferred Extremities exam: PRESENT: full ROM. ABSENT: calf tenderness, clubbing, pedal edema Neurological exam: PRESENT: alert, awake, oriented to person, oriented to place, oriented to time, oriented to situation, CN II-XII grossly intact. ABSENT: motor sensory deficit Results Laboratory Results: 11/02/18 03:08 11/02/18 03:08 10/29/18 10/29/18 18:52 18:52 Creatine Kinase 28 L CK-MB (CK-2) 0.63 Troponin I < 0.012 NT-Pro-B Natriuret Pep 562 Impressions: Chest X-Ray 10/31/18 00:00 IMPRESSION: NO ACUTE FINDINGS. Assessment and Plan - Diagnosis (1) Acute respiratory failure with hypoxia and hypercapnia Is this a current diagnosis for this admission?: Yes Plan: Secondary to COPD exacerbation. Currently saturating well on 3 L of nasal cannu la. BiPAP as needed. (2) COPD exacerbation Is this a current diagnosis for this admission?: Yes Plan: 11/01: Will reinstate IV steroids. Continue scheduled breathing treatments. 11/02: Decrease Solu-Medrol to 40 mg every 12. 11/03: Will try to switch to PO steroids later today she continues to do well. (3) Atrial fibrillation with RVR Is this a current diagnosis for this admission?: Yes Plan: Currently in sinus rhythm. (4) Chronic hypercapnic respiratory failure Is this a current diagnosis for this admission?: Yes Plan: Uses home O2 2 L. (5) HTN (hypertension) Qualifiers: Hypertension type: essential hypertension Qualified Code(s): I10 - Essential (primary) hypertension Is this a current diagnosis for this admission?: Yes Plan: Blood pressure at goal. Continue home meds. (6) Hypothyroidism Qualifiers: Hypothyroidism type: unspecified Qualified Code(s): E03.9 - Hypothyroidism, unspecified Is this a current diagnosis for this admission?: Yes Plan: Continue Synthroid. (7) Myelodysplasia (myelodysplastic syndrome) Is this a current diagnosis for this admission?: Yes Plan: Patient received a total of 4 units packed RBC during this admission due to low hemoglobin. (8) Thrush, oral Is this a current diagnosis for this admission?: Yes Plan: Continue Diflucan p.o. - Time Time Spent with patient: 25-34 minutes
[2018-11-03] MEDS: PREDNISONE 20 MG TABLET PO SCH (17:24)
[2018-11-04] MEDS: IPRATROPIUM BROMIDE 0.02% NEB 0.5 MG/2.5 ML AMPUL NEB SCH ×3 (00:07→15:49)
[2018-11-04] MEDS: LEVALBUTEROL HCL NEB 1.25 MG/3 ML AMPUL NEB SCH ×3 (00:07→15:49)
[2018-11-04] MEDS: HEPARIN SOD (PORCINE) 5,000 UNIT/ML 1 ML VIAL SUBCUT SCH ×3 (05:05→21:21)
[2018-11-04 06:36] LABS: HEMATOCRIT 30.8 % (36.0-47.0); HEMOGLOBIN 9.3 g/dL (12.0-15.5); MEAN CORPUSCULAR HEMOGLOBIN 25.2 pg (27.0-33.4); MEAN CORPUSCULAR HGB CONC 30.3 g/dL (32.0-36.0); MEAN CORPUSCULAR VOLUME 83 fl (80-97); PLATELET COUNT 291 10^3/uL (150-450); RED BLOOD COUNT 3.71 10^6/uL (3.72-5.28); RED CELL DISTRIBUTION WIDTH 28.4 % (11.5-14.0)
[2018-11-04 06:50] LABS: ANION GAP 8 (5-19); BLOOD UREA NITROGEN 26 mg/dL (7-20); CALCIUM 8.5 mg/dL (8.4-10.2); CARBON DIOXIDE 31 mmol/L (22-30); CHLORIDE 99 mmol/L (98-107); GLUCOSE 199 mg/dL (75-110); POTASSIUM 4.5 mmol/L (3.6-5.0)
[2018-11-04 07:12] LABS: WHITE BLOOD COUNT 39.8 10^3/uL (4.0-10.5)
[2018-11-04 07:14] LABS: ABSOLUTE LYMPHOCYTES# (MANUAL) 3.2 10^3/uL (0.5-4.7); ABSOLUTE MONOCYTES # (MANUAL) 0.4 10^3/uL (0.1-1.4); BASOPHILS % (MANUAL) 0 % (0-2); EOSINOPHILS % (MANUAL) 0 % (0-6); LYMPHOCYTES % (MANUAL) 8 % (13-45); MONOCYTES % (MANUAL) 1 % (3-13); NUCLEATED RED BLOOD CELLS 1 /100 WBC (0); SEGMENTED NEUTROPHILS % (MAN) 91 % (42-78); TOTAL CELLS COUNTED 100
[2018-11-04 07:19] LABS: ANISOCYTOSIS 4+; OVALOCYTES 1+; PLATELET COMMENT ADEQUATE; SCHISTOCYTES 1+
[2018-11-04 07:20] LABS: HYPOCHROMASIA 1+
--- NOTE | 2018-11-04 08:30 | PDOC CONSULTATION ---
Consultation Consult Date: 11/04/18 Provider Consulted: KIMBERLY LEE Consult reason:: Hematology/Oncology consultation was requested for patient with severe anemia and history of MDS. History of Present Illness Admission Date/PCP: 10/29/18 23:03 AGUSTO AGRAWAL DO History of Present Illness: LEVI GIBBONS is a 68 year old female who has been admitted in the past for anemia and COPD. She had been told in the past that she had Myelodysplastic Syndrome. She has never received any treatment for this. She previously was followed by Dr. Winkler, before she moved from this area. Patient has not seen a underwear welter for over 2 years. She presented to the hospital with severe dyspnea and fatigue. She was found to have HGB of 3.6 with Ferritin of 3.14 and B12 of 223. She was given blood tra nsfusion and also treated for COPD exacerbation. She has also receive Injectafer 750 mg x 1 dose. Of note, prior hemoccult testing in June 2016 were positive x 3. I am not sure if she has had GI work-up in the past, as she was then lost to follow-up. Today, she states that her breathing has improved, but she is still very weak. She would like to go home today, but is not sure if she is strong enough yet. Her HGB is now 9.3. Past Medical History Cardiac Medical History: Reports: Atrial Fibrillation, Hypertension, Pulmonary Embolism - 30+yrs ago Denies: Congestive Heart Failure, Coronary Artery Disease, Myocardial Infarction, Hyperlipidema, Peripheral Vascular Disease, Heart Murmur Pulmonary Medical History: Reports: Asthma, Bronchitis, Chronic Obstructive Pulmonary Disease (COPD), Pneumonia, Respiratory Failure, Tuberculosis Denies: Sleep Apnea EENT Medical History: Denies: Cataracts, Ears - Hearing aids Neurological Medical History: Denies: Hemorrhagic CVA, Ischemic CVA, Multiple Sclerosis, Seizures Endocrine Medical History: Reports: Hypothyroidism, Obesity Denies: Diabetes Mellitus Type 1, Diabetes Mellitus Type 2, Hyperthyroidism Renal/ Medical History: Denies: Chronic Kidney Disease, End Stage Renal Disease, Nephrolithiasis Malignancy Medical History: Reports: None Denies: Lung Cancer GI Medical History: Reports: Gastroesophageal Reflux Disease Denies: Cirrhosis, Crohn's Disease, Diverticulitis, Hepatitis, Hiatal Hernia, Peptic Ulcer Disease, Ulcerative Colitis Musculoskeltal Medical History: Reports: Arthritis Denies: Fibromyalgia, Gout Skin Medical History: Denies: Eczema, Psoriasis Psychiatric Medical History: Reports: Depression, Tobacco Dependency Denies: Alcohol Dependency, Bipolar Disorder, Post Traumatic Stress Disorder, Substance Abuse Traumatic Medical History: Reports: None Hematology: Reports: Anemia - Myelodysplastic syndrome Denies: Sickle Cell Disease, Bleeding Tendencies Infectious Medical History: Reports: None Denies: Clostridium Difficile, Methicillin-Resistant Staph Aureus Past Surgical History Past Surgical History: Reports: Hysterectomy, Orthopedic Surgery - CARPAL TUNNEL RELEASE, GANGLION CYST REMOVAL, TRIGGER FINGER RELEASE, Tubal Ligation Denies: Amputation, Appendectomy, Section, Cholecystectomy, Coronary Artery Bypass Graft, Gastric Bypass Surgery, Herniorrhaphy, Mastectomy, Pacemaker, Tonsillectomy Social History Lives with: Family Smoking Status: Former Smoker - Quit 3 months ago Frequency of Alcohol Use: None Hx Recreational Drug Use: No Drugs: None Hx Prescription Drug Abuse: No - Advance Directive Resuscitation Status: Full Code Family History Family History: CAD, COPD, DM, Hypertension. denies: Malignancy Parental Family History Reviewed: Yes - Mother with Lymphoma. Father with CVA Children Family History Reviewed: No Sibling(s) Family History Reviewed.: Yes Medication/Allergy Home Medications: Albuterol Sulfate [Proair HFA Inhalation Aerosol 8.5 gm MDI] 2 puff IH Q4HP PRN 10/30/18 Aspirin [Ecotrin 81 mg EC Tablet] 81 mg PO DAILY 10/30/18 Atorvastatin Calcium [Lipitor 40 mg Tablet] 40 mg PO DAILY 10/30/18 Budesonide/Formoterol Fumarate [Symbicort HFA 160-4.5 mcg Inhaler 6 gm] 2 puff IH Q12 10/30/18 Citalopram Hydrobromide [Celexa 40 mg Tablet] 40 mg PO DAILY 10/30/18 Diltiazem HCl [Diltiazem 24Hr ER (Cd)] 240 mg PO DAILY 10/30/18 Dofetilide [Tikosyn 500 Mcg Capsule] 500 mcg PO Q12 10/30/18 Pantoprazole Sodium [Protonix [address] Tablet] 40 mg PO Q6AM 10/30/18 Prednisone [Deltasone 10 mg Tablet] 10 mg PO DAILY 10/30/18 Roflumilast [Daliresp 500 mcg Tablet] 500 mcg PO DAILY 10/30/18 Ropinirole HCl [Requip 2 mg Tablet] 2 mg PO Q8 10/30/18 Allergies/Adverse Reactions: hydromorphone HCl [From Dilaudid] Allergy (Severe, Verified 01/12/18 09:54) Passed out Review of Systems Constitutional: PRESENT: fatigue. ABSENT: fever(s) Eyes: ABSENT: visual disturbances Ears: ABSENT: hearing changes Nose, Mouth, and Throat: ABSENT: sore throat Cardiovascular: PRESENT: chest pain - Now improved Respiratory: PRESENT: dyspnea Gastrointestinal: ABSENT: coffee ground emesis, hematochezia, nausea Genitourinary: ABSENT: dysuria Integumentary: ABSENT: rash Neurological: PRESENT: weakness Hematologic/Lymphatic: ABSENT: easy bleeding Physical Exam Vital Signs: Temp Pulse Resp BP Pulse Ox 97.9 F 105 H 20 118/76 98 11/04/18 00:00 11/04/18 00:09 11/04/18 04:08 11/04/18 00:00 11/04/18 04:08 Intake & Output 11/03/18 11/04/18 11/05/18 06:59 06:59 06:59 Intake Total 1780 1508 Output Total 850 Balance 930 1508 Weight 95 kg 96.4 kg General appearance: PRESENT: no acute distress, obese Exam: 68 year old female. Head exam: PRESENT: normocephalic Eye exam: PRESENT: EOMI Mouth exam: PRESENT: tongue midline Neck exam: ABSENT: lymphadenopathy, tenderness Respiratory exam: PRESENT: wheezes - Bilaterally. Cardiovascular exam: PRESENT: RRR GI/Abdominal exam: PRESENT: soft. ABSENT: tenderness Extremities exam: ABSENT: pedal edema Musculoskeletal exam: PRESENT: normal inspection Neurological exam: PRESENT: alert, awake Psychiatric exam: PRESENT: appropriate affect Skin exam: PRESENT: normal color Results Laboratory Results: 11/04/18 05:49 11/04/18 05:49 11/04/18 11/04/18 05:49 05:49 WBC 39.8 H* RBC 3.71 L Hgb 9.3 L Hct 30.8 L MCV 83 MCH 25.2 L MCHC 30.3 L RDW 28.4 H Plt Count 291 Seg Neutrophils % Not Reportable Sodium 138.1 Potassium 4.5 Chloride 99 Carbon Dioxide 31 H Anion Gap 8 BUN 26 H Creatinine 0.71 Est GFR ( Amer) > 60 Glucose 199 H Calcium 8.5 10/29/18 10/29/18 18:52 18:52 Creatine Kinase 28 L CK-MB (CK-2) 0.63 Troponin I < 0.012 NT-Pro-B Natriuret Pep 562 Impressions: Chest X-Ray 10/31/18 00:00 IMPRESSION: NO ACUTE FINDINGS. Assessment & Plan - Diagnosis (1) Anemia, blood loss Is this a current diagnosis for this admission?: Yes Plan: She has both Iron deficiency anemia and B12 deficiency anemia with Positive stool for blood in the past. She received IV iron, and blood during this admission. I will start B12 tabs now. I will see her in the office and repeat iron and B12 levels and if no resonse, will change to IM B12 and continue IV iron. She should have GI work-up if not already done. (2) COPD exacerbation Is this a current diagnosis for this admission?: Yes Plan: Improved. I will defer to her PCP. (3) Myelodysplasia (myelodysplastic syndrome) Is this a current diagnosis for this admission?: Yes Plan: Although she has been given this diagnosis, I do not have any confirming studies. I will discuss bone marrow biopsy with her to determine what treatment will be best for her. Often, Vit B12 deficiency can mimic myelodyplasia. I will continue to follow as outpatient. - Plan Summary Plan Summary: Thank you for this consult. I am happy to continue to follow her with you. Please call with questions or concerns.
[2018-11-04] MEDS: BUDESONIDE NEB 0.5 MG/2 ML AMPUL NEB SCH ×2 (08:32→19:48)
[2018-11-04] MEDS: CYANOCOBALAMIN (VITAMIN B-12) 1,000 MCG TABLET PO SCH (09:18)
[2018-11-04] MEDS: FAMOTIDINE 20 MG TABLET PO SCH ×2 (09:18→21:21)
[2018-11-04] MEDS: FLUCONAZOLE 100 MG TABLET PO SCH (09:18)
[2018-11-04] MEDS: PREDNISONE 20 MG TABLET PO SCH ×2 (09:18→17:34)
[2018-11-04] MEDS: DOCUSATE SODIUM 100 MG CAPSULE PO SCH ×2 (09:18→17:34)
--- NOTE | 2018-11-04 11:44 | PDOC CONSULTATION ---
Consultation Consult Date: 11/02/18 Attending physician:: SELVIN BROTHERS Provider Consulted: ANJEL MAYNARD Consult reason:: Acute on chronic respiratory failure History of Present Illness Admission Date/PCP: 10/29/18 23:03 AGUSTO AGRAWAL DO History of Present Illness: LEVI GIBBONS is a 68 year old female to the emergency room with increasing dyspnea over the last 3 days she does wear oxygen at home however the dyspnea became worse and she presented to ED hypoxic after having multiple nebulizer and BiPAP she was better but she was still significantly compromised from respiratory status she was placed in the IMCU. She denies hemoptysis PPD status is negative dates unknown she denies history of lung disease as a child or adolescent she admits to exposure to large amounts of passive smoke as a child as well as an adult she is self smoked a pack a day for about 25 years and smoked up until 3 months ago. 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 Past Medical History Cardiac Medical History: Reports: Atrial Fibrillation, Hypertension, Pulmonary Embolism - 30+yrs ago Denies: Congestive Heart Failure, Coronary Artery Disease, Myocardial Infarction, Hyperlipidema, Peripheral Vascular Disease, Heart Murmur Pulmonary Medical History: Reports: Asthma, Bronchitis, Chronic Obstructive Pulmonary Disease (COPD), Pneumonia, Respiratory Failure, Tuberculosis Denies: Sleep Apnea EENT Medical History: Denies: Cataracts, Ears - Hearing aids Neurological Medical History: Denies: Hemorrhagic CVA, Ischemic CVA, Multiple Sclerosis, Seizures Endocrine Medical History: Reports: Hypothyroidism, Obesity Denies: Diabetes Mellitus Type 1, Diabetes Mellitus Type 2, Hyperthyroidism Renal/ Medical History: Denies: Chronic Kidney Disease, End Stage Renal Disease, Nephrolithiasis Malignancy Medical History: Reports: None Denies: Lung Cancer GI Medical History: Reports: Gastroesophageal Reflux Disease Denies: Cirrhosis, Crohn's Disease, Diverticulitis, Hepatitis, Hiatal Hernia, Peptic Ulcer Disease, Ulcerative Colitis Musculoskeltal Medical History: Reports: Arthritis Denies: Fibromyalgia, Gout Skin Medical History: Denies: Eczema, Psoriasis Psychiatric Medical History: Reports: Depression, Tobacco Dependency Denies: Alcohol Dependency, Bipolar Disorder, Post Traumatic Stress Disorder, Substance Abuse Traumatic Medical History: Reports: None Hematology: Reports: Anemia - Myelodysplastic syndrome Denies: Sickle Cell Disease, Bleeding Tendencies Infectious Medical History: Reports: None Denies: Clostridium Difficile, Methicillin-Resistant Staph Aureus Past Surgical History Past Surgical History: Reports: Hysterectomy, Orthopedic Surgery - CARPAL TUNNEL RELEASE, GANGLION CYST REMOVAL, TRIGGER FINGER RELEASE, Tubal Ligation Denies: Amputation, Appendectomy, Section, Cholecystectomy, Coronary Artery Bypass Graft, Gastric Bypass Surgery, Herniorrhaphy, Mastectomy, Pacemaker, Tonsillectomy Social History Information Source: Patient, [facility] Records Lives with: Family Smoking Status: Former Smoker - Quit 3 months ago Cigarettes Packs Per Day: 1 Number of Years Smokin Passive smoke exposure as: Both Frequency of Alcohol Use: None Hx Recreational Drug Use: No Drugs: None Hx Prescription Drug Abuse: No Do you have pets?: No Have you had any respiratory illnesses as a child?: No Have you been exposed to any sick contacts recently?: No Have you had any recent respiratory illnesses?: No Have you travelled outside of [place] in the past 12 months?: No - Advance Directive Resuscitation Status: Full Code Family History Family History: CAD, COPD, DM, Hypertension. denies: Malignancy Parental Family History Reviewed: Yes Children Family History Reviewed: Yes Sibling(s) Family History Reviewed.: Yes Medication/Allergy Home Medications: Albuterol Sulfate [Proair HFA Inhalation Aerosol 8.5 gm MDI] 2 puff IH Q4HP PRN 10/30/18 Aspirin [Ecotrin 81 mg EC Tablet] 81 mg PO DAILY 10/30/18 Atorvastatin Calcium [Lipitor 40 mg Tablet] 40 mg PO DAILY 10/30/18 Budesonide/Formoterol Fumarate [Symbicort HFA 160-4.5 mcg Inhaler 6 gm] 2 puff IH Q12 10/30/18 Citalopram Hydrobromide [Celexa 40 mg Tablet] 40 mg PO DAILY 10/30/18 Diltiazem HCl [Diltiazem 24Hr ER (Cd)] 240 mg PO DAILY 10/30/18 Dofetilide [Tikosyn 500 Mcg Capsule] 500 mcg PO Q12 10/30/18 Pantoprazole Sodium [Protonix [address] Tablet] 40 mg PO Q6AM 10/30/18 Roflumilast [Daliresp 500 mcg Tablet] 500 mcg PO DAILY 10/30/18 Ropinirole HCl [Requip 2 mg Tablet] 2 mg PO Q8 10/30/18 Cyanocobalamin (Vitamin B-12) [Vitamin B-12 1000 mcg Tablet] 1,000 mcg PO DAILY #30 tablet 11/04/18 Ferrous Sulfate [Albafort] 325 mg PO DAILY #30 tablet 11/04/18 Ipratropium/Albuterol Sulfate [Duoneb 3 ml Ampul] 3 ml [facility] RTQ6HP PRN #30 vial.[facility] 11/04/18 Prednisone [Deltasone 20 mg Tablet] 20 mg PO BID 5 Days #10 tablet 11/04/18 Tiotropium [place] [Spiriva Handihaler 5 Cap/Kit (18 Mcg/Cap)] 1 cap IH DAILY #30 capsule 11/04/18 Allergies/Adverse Reactions: hydromorphone HCl [From Dilaudid] Allergy (Severe, Verified 01/12/18 09:54) Passed out Review of Systems Constitutional: PRESENT: chills, fatigue, weakness Eyes: ABSENT: visual disturbances Ears: ABSENT: hearing changes Nose, Mouth, and Throat: ABSENT: mouth pain Cardiovascular: PRESENT: dyspnea on exertion, orthropnea, palpitations Respiratory: PRESENT: cough, dyspnea. ABSENT: hemoptysis, sputum Gastrointestinal: ABSENT: abdominal pain, bloating, coffee ground emesis, constipation, dysphagia, heartburn, hematemesis, hematochezia, melena Genitourinary: PRESENT: nocturia. ABSENT: dysuria, hematuria Integumentary: ABSENT: pruritus, rash Neurological: ABSENT: abnormal gait, abnormal movements, abnormal speech, confusion, frequent falls, lack of coordination, memory loss, numbness Psychiatric: PRESENT: depression. ABSENT: hallucinations, homidical ideation, suicidal ideation Endocrine: ABSENT: cold intolerance, heat intolerance, polydipsia, polyuria Hematologic/Lymphatic: ABSENT: easy bruising, lymphadenopathy Allergic/Immunologic: ABSENT: seasonal rhinorrhea Physical Exam Vital Signs: Temp Pulse Resp BP Pulse Ox 99.0 F 101 H 20 139/96 H 98 11/02/18 08:00 11/02/18 08:48 11/02/18 08:48 11/02/18 08:00 11/02/18 08:48 Intake & Output 11/01/18 11/02/1811/03/19 06:59 06:59 06:59 Intake Total 1035 1512 Output Total 6223 1053 Balance -665 -1068 Weight 93.5 kg 94.9 kg General appearance: PRESENT: no acute distress, cooperative, disheveled, obese, well-developed, well-nourished Head exam: PRESENT: atraumatic, normocephalic Eye exam: PRESENT: conjunctiva pale, EOMI Mouth exam: PRESENT: moist, neck supple, tongue midline Neck exam: ABSENT: carotid bruit, full ROM, JVD, lymphadenopathy, meningismus, tenderness, thyromegaly, tracheal deviation, tracheostomy, other Respiratory exam: PRESENT: decreased breath sounds, prolonged expiratory phas, rhonchi, symmetrical, unlabored. ABSENT: rales, retraction, stridor, tachypnea Cardiovascular exam: PRESENT: RRR, +S1, +S2, tachycardia Pulses: PRESENT: normal radial pulses GI/Abdominal exam: PRESENT: soft. ABSENT: distended, guarding, mass, rebound, tenderness Extremities exam: ABSENT: calf tenderness, clubbing, joint swelling, tenderness Musculoskeletal exam: ABSENT: deformity, dislocation Neurological exam: PRESENT: awake Psychiatric exam: PRESENT: flat affect Focused psych exam: PRESENT: internal stimuli Skin exam: PRESENT: dry, warm Results Laboratory Results: 11/02/18 03:08 11/02/18 03:08 11/02/18 11/02/18 03:08 03:08 WBC 36.4 H* RBC 3.75 Hgb 9.2 L Hct 30.0 L MCV 80 MCH 24.4 L MCHC 30.5 L RDW 27.8 H Plt Count 283 Sodium 139.0 Potassium 4.4 Chloride 100 Carbon Dioxide 30 Anion Gap 9 BUN 23 H Creatinine 0.65 Est GFR ( Amer) > 60 Glucose 200 H Calcium 8.9 Magnesium 2.3 10/29/18 10/29/18 18:52 18:52 Creatine Kinase 28 L CK-MB (CK-2) 0.63 Troponin I < 0.012 NT-Pro-B Natriuret Pep 562 Impressions: Chest X-Ray 10/31/18 00:00 IMPRESSION: NO ACUTE FINDINGS. Assessment & Plan - Diagnosis (1) COPD exacerbation Is this a current diagnosis for this admission?: Yes Plan: Generic Name Dose Route Start Last Admin Trade Name Freq PRN Reason Stop Dose Admin Prednisone 40 mg 11/03/18 18:00 11/04/18 09:18 Deltasone 20 Mg Tablet PO 12/03/18 17:59 40 mg BID JENNIFER Budesonide 0.5 mg 10/30/18 08:00 11/04/18 08:32 Pulmicort Neb 0.5 Mg/2 Ml Ampul NEB 11/29/18 07:59 0.5 mg RTBID JENNIFER Levalbuterol HCl 0.63 mg 10/30/18 01:43 11/02/18 20:42 Xopenex Neb 0.63 Mg/3 Ml Ampul NEB 11/29/18 01:42 0.63 mg RTQ2HP PRN SHORTNESS OF BREATH Levalbuterol HCl 1.25 mg 10/30/18 08:00 11/04/18 08:32 Xopenex Neb 1.25 Mg/3 Ml Ampul NEB 11/29/18 07:59 1.25 mg RTQ8 JENNIFER Ipratropium [place] 0.5 mg 10/30/18 08:00 11/04/18 08:32 Atrovent 0.02% Neb 0.5 Mg/2.5 Ml Ampul NEB 11/29/18 07:59 0.5 mg RTQ8 JENNIFER suggest decrease steroids dc duoneb add spiriva (2) Acute respiratory failure with hypoxia and hypercapnia Is this a current diagnosis for this admission?: Yes Plan: Supplemental oxygen NIPPV (3) Chronic atrial fibrillation Is this a current diagnosis for this admission?: Yes Plan: sTable at this time
[2018-11-05] MEDS: IPRATROPIUM BROMIDE 0.02% NEB 0.5 MG/2.5 ML AMPUL NEB SCH ×3 (00:14→15:47)
[2018-11-05] MEDS: LEVALBUTEROL HCL NEB 1.25 MG/3 ML AMPUL NEB SCH ×3 (00:14→15:47)
[2018-11-05] MEDS: HEPARIN SOD (PORCINE) 5,000 UNIT/ML 1 ML VIAL SUBCUT SCH ×5 (06:57→22:28)
[2018-11-05] MEDS: BUDESONIDE NEB 0.5 MG/2 ML AMPUL NEB SCH ×2 (08:07→21:33)
[2018-11-05] MEDS: FLUCONAZOLE 100 MG TABLET PO SCH (09:19)
[2018-11-05] MEDS: DOCUSATE SODIUM 100 MG CAPSULE PO SCH ×2 (09:19→17:21)
[2018-11-05] MEDS: FAMOTIDINE 20 MG TABLET PO SCH ×2 (09:19→22:14)
[2018-11-05] MEDS: CYANOCOBALAMIN (VITAMIN B-12) 1,000 MCG TABLET PO SCH (09:19)
[2018-11-05] MEDS: PREDNISONE 20 MG TABLET PO SCH ×2 (09:19→17:21)
--- NOTE | 2018-11-05 11:28 | PDOC PROGRESS REPORT ---
Subjective Progress Note for:: 11/05/18 Subjective:: No acute events overnight Reason For Visit: ANEMIA, ACUTE COPD Physical Exam Vital Signs: Temp Pulse Resp BP Pulse Ox 97.4 F 126 H 18 129/92 H 98 11/04/18 23:44 11/05/18 08:11 11/05/18 08:11 11/04/18 23:44 11/05/18 08:11 Intake & Output 11/04/18 11/05/18 11/06/18 06:59 06:59 06:59 Intake Total 1508 2315 Balance 1508 2315 Weight 96.4 kg 97.5 kg General appearance: PRESENT: no acute distress, well-developed, well-nourished Head exam: PRESENT: atraumatic, normocephalic Eye exam: PRESENT: conjunctiva pink, EOMI, PERRLA. ABSENT: scleral icterus Ear exam: PRESENT: normal external ear exam Mouth exam: PRESENT: moist, tongue midline Neck exam: ABSENT: carotid bruit, JVD, lymphadenopathy, thyromegaly Respiratory exam: PRESENT: clear to auscultation armand. ABSENT: rales, rhonchi, wheezes Cardiovascular exam: PRESENT: RRR. ABSENT: diastolic murmur, rubs, systolic murmur Pulses: PRESENT: normal dorsalis pedis pul Vascular exam: PRESENT: normal capillary refill GI/Abdominal exam: PRESENT: normal bowel sounds, soft. ABSENT: distended, guarding, mass, organolmegaly, rebound, tenderness Rectal exam: PRESENT: deferred Extremities exam: PRESENT: full ROM. ABSENT: calf tenderness, clubbing, pedal edema Neurological exam: PRESENT: alert, awake, oriented to person, oriented to place, oriented to time, oriented to situation, CN II-XII grossly intact. ABSENT: motor sensory deficit Psychiatric exam: PRESENT: appropriate affect, normal mood. ABSENT: homicidal ideation, suicidal ideation Skin exam: PRESENT: dry, intact, warm. ABSENT: cyanosis, rash Results Laboratory Results: 11/04/18 05:49 11/04/18 05:49 10/31/18 11:15 Blood Blood Culture - Final NO GROWTH IN 5 DAYS 10/29/18 10/29/18 18:52 18:52 Creatine Kinase 28 L CK-MB (CK-2) 0.63 Troponin I < 0.012 NT-Pro-B Natriuret Pep 562 Impressions: Chest X-Ray 10/31/18 00:00 IMPRESSION: NO ACUTE FINDINGS. Assessment & Plan - Diagnosis (1) Anemia, blood loss Is this a current diagnosis for this admission?: Yes Plan: IV iron given will be need to give further IV iron as an outpatient as well, continue with B12 (2) Leucocytosis Qualifiers: Leukocytosis type: leukemoid reaction Qualified Code(s): D72.823 - Leukemoid reaction Is this a current diagnosis for this admission?: Yes Plan: Overall most likely leukemoid reaction although she has been persistently with leukocytosis for some time, she had extensive work-up by my previous partner Dr. Winkler with flow cytometry, FISH for BCR ABL, myeloproliferative mutational analysis, and all of this was negative. So this is truly a reactive process thereafter. - Time Time Spent with patient: 35 or more minutes
--- NOTE | 2018-11-05 12:28 | RADIOLOGY REPORT (SQ) ---
EXAM DESCRIPTION: FOOT LEFT 2 VIEWS COMPLETED DATE/TIME: 11/05/2018 11:08 am REASON FOR STUDY: left foot pain, swelling COMPARISON: None. NUMBER OF VIEWS: Three views left foot. LIMITATIONS: None. FINDINGS: Osteopenic. No fracture. Joints maintained. Soft tissue swelling along the dorsal foot. No radiopaque foreign body. OTHER: No other significant finding. IMPRESSION: Soft tissue swelling and osteopenia. No displaced fracture. TECHNICAL DOCUMENTATION: JOB ID: [id number] Reading location - IP/workstation name: [email or web address]
[2018-11-05] MEDS ORDERED: TIZANIDINE HCL 4 MG TABLET PO ONE (13:00)
--- NOTE | 2018-11-05 16:41 | Progress Note ---
Provider Note Provider Note: Patient's discharge was deferred yesterday as there was an issue with acquisition of her BiPAP. Otherwise no acute event overnight. This morning, she complains of mild pain on the left foot. She denies acute shortness of breath and says that she feels she is at her baseline. Note that at her baseline, patient becomes dyspneic upon ambulation at home and hence mostly is confined to her chair or bed.
--- NOTE | 2018-11-05 16:41 | PDOC DISCHARGE SUMMARY ---
General - Admit/Disc Date/PCP Admission Date/Primary Care Provider: 10/29/18 23:03 AGUSTO AGRAWAL DO Discharge Date: 11/04/18 - Discharge Diagnosis (1) Acute respiratory failure with hypoxia and hypercapnia Is this a current diagnosis for this admission?: Yes (2) COPD exacerbation Is this a current diagnosis for this admission?: Yes (3) Atrial fibrillation with RVR Is this a current diagnosis for this admission?: Yes (4) Chronic hypercapnic respiratory failure Is this a current diagnosis for this admission?: Yes (5) HTN (hypertension) Is this a current diagnosis for this admission?: Yes (6) Hypothyroidism Is this a current diagnosis for this admission?: Yes (7) Myelodysplasia (myelodysplastic syndrome) Is this a current diagnosis for this admission?: Yes (8) Thrush, oral Is this a current diagnosis for this admission?: Yes - Additional Information Resuscitation Status: Full Code Prescriptions: Ferrous Sulfate [Albafort] 325 mg PO DAILY #30 tablet Prednisone [Deltasone 20 mg Tablet] 20 mg PO BID 5 Days #10 tablet Ipratropium/Albuterol Sulfate [Duoneb 3 ml Ampul] 3 ml NEB RTQ6HP PRN #30 vial.neb PRN Reason: Tiotropium [place] [Spiriva Handihaler 5 Cap/Kit (18 Mcg/Cap)] 1 cap IH DAILY #30 capsule Cyanocobalamin (Vitamin B-12) [Vitamin B-12 1000 mcg Tablet] 1,000 mcg PO DAILY #30 tablet Home Medications: Albuterol Sulfate [Proair HFA Inhalation Aerosol 8.5 gm MDI] 2 puff IH Q4HP PRN 10/30/18 Aspirin [Ecotrin 81 mg EC Tablet] 81 mg PO DAILY 10/30/18 Atorvastatin Calcium [Lipitor 40 mg Tablet] 40 mg PO DAILY 10/30/18 Budesonide/Formoterol Fumarate [Symbicort HFA 160-4.5 mcg Inhaler 6 gm] 2 puff I H Q12 10/30/18 Citalopram Hydrobromide [Celexa 40 mg Tablet] 40 mg PO DAILY 10/30/18 Diltiazem HCl [Diltiazem 24Hr ER (Cd)] 240 mg PO DAILY 10/30/18 Dofetilide [Tikosyn 500 Mcg Capsule] 500 mcg PO Q12 10/30/18 Pantoprazole Sodium [Protonix [address] Tablet] 40 mg PO Q6AM 10/30/18 Roflumilast [Daliresp 500 mcg Tablet] 500 mcg PO DAILY 10/30/18 Ropinirole HCl [Requip 2 mg Tablet] 2 mg PO Q8 10/30/18 Cyanocobalamin (Vitamin B-12) [Vitamin B-12 1000 mcg Tablet] 1,000 mcg PO DAILY #30 tablet 11/04/18 Ferrous Sulfate [Albafort] 325 mg PO DAILY #30 tablet 11/04/18 Ipratropium/Albuterol Sulfate [Duoneb 3 ml Ampul] 3 ml NEB RTQ6HP PRN #30 vial.neb 11/04/18 Prednisone [Deltasone 20 mg Tablet] 20 mg PO BID 5 Days #10 tablet 11/04/18 Tiotropium [place] [Spiriva Handihaler 5 Cap/Kit (18 Mcg/Cap)] 1 cap IH DAILY #30 capsule 11/04/18 History of Present Illness History of Present Illness: Admitting hospitalist's H&P: LEVI GIBBONS is a 68 year old female who presented to the emergency room with acute dyspnea. She and her family admit that she began experiencing dyspnea on the morning of admission. Her dyspnea was continuous and became progressively worse over the course of the day and by early evening he did become severe resulting in her emergency room visit. The dyspnea has been accompanied by severe air hunger, a vague generalized chest pain with inspiration, wheezing as well as the inability to speak more than 1 or 2 words at a time. Her dyspnea is made worse by exertion. She denies other associated or accompanying signs or s ymptoms. She admits prior similar episodes with exacerbations of her COPD. She has not identified any additional aggravating or ameliorating factors for her dyspnea. In the emergency room patient was found to be in severe respiratory distress with hypoxia and required treatment with BiPAP. She received numerous nebulizer therapies and has improved but is still requiring further treatment. Additionally she was found to have a hemoglobin of 3.6 with a stool for occult blood that was negative. Patient was subsequently admitted to the hospital for further evaluation and treatment. Hospital Course Hospital Course: This is a 68-year-old female with a past medical history of COPD, chronic atrial fibrillation, hypothyroidism and myelodysplasia who presented with increasing shortness of breath. Patient was admitted for COPD exacerbation. She was s tarted on IV steroids and scheduled breathing treatments. 11/01: This morning, she says that she still feels short of breath and has not felt significantly better compared to yesterday. She does continue to have bilateral wheezing and decreased breath sounds upon examination. She denies chest pain. She is complaining of mild odynophagia and on exam is noted to have oral thrush. 11/02: She says she feels slightly better today. On auscultation, there is improvement from yesterday and she has better air entry and less wheezing this morning. 11/03: She continues to feel better. Breath sounds are much better today and has minimal wheezing. She says she is returning to her baseline. She was evaluated by pulmonology she recommended discharging her on BiPAP. 11/04: Patient is at her baseline. She will be discharged on BiPAP per pulmonology recommendations. She will complete 5 more days of oral steroids. She will wean her Symbicort at home. Spiriva was also added to her regimen. Physical Exam Vital Signs: Temp Pulse Resp BP Pulse Ox 97.4 F 126 H 18 129/92 H 98 11/04/18 23:44 11/05/18 08:11 11/05/18 08:11 11/04/18 23:44 11/05/18 08:11 Intake & Output 11/04/18 11/05/18 11/06/18 06:59 06:59 06:59 Intake Total 1508 2315 Balance 1508 2315 Weight 212 lb 8.41 oz 214 lb 15.211 oz General appearance: PRESENT: no acute distress, well-developed, well-nourished Head exam: PRESENT: atraumatic, normocephalic Eye exam: PRESENT: conjunctiva pink, EOMI, PERRLA. ABSENT: scleral icterus Ear exam: PRESENT: normal external ear exam Mouth exam: PRESENT: moist, tongue midline Neck exam: ABSENT: carotid bruit, JVD, lymphadenopathy, thyromegaly Respiratory exam: PRESENT: rhonchi, wheezes - minimal wheezes. ABSENT: rales Cardiovascular exam: PRESENT: RRR. ABSENT: diastolic murmur, rubs, systolic murmur Pulses: PRESENT: normal dorsalis pedis pul GI/Abdominal exam: PRESENT: normal bowel sounds, soft. ABSENT: distended, guarding, mass, organolmegaly, rebound, tenderness Rectal exam: PRESENT: deferred Neurological exam: PRESENT: alert, awake, oriented to person, oriented to place, oriented to time, oriented to situation, CN II-XII grossly intact. ABSENT: motor sensory deficit Results Laboratory Results: 11/04/18 05:49 11/04/18 05:49 10/31/18 11:45 Blood Blood Culture - Final NO GROWTH IN 5 DAYS 10/31/18 11:15 Blood Blood Culture - Final NO GROWTH IN 5 DAYS 10/29/18 10/29/18 18:52 18:52 Creatine Kinase 28 L CK-MB (CK-2) 0.63 Troponin I < 0.012 NT-Pro-B Natriuret Pep 562 Impressions: Chest X-Ray 10/31/18 00:00 IMPRESSION: NO ACUTE FINDINGS. Qualifiers - * PATIENT BEING DISCHARGED WITH ANY OF THE FOLLOWING DIAGNOSIS: No Acute Heart Failure - Is this a Heart Failure Patient?: No
--- NOTE | 2018-11-05 17:19 | RADIOLOGY REPORT (SQ) ---
EXAM DESCRIPTION: HIP LEFT AP/LATERAL COMPLETED DATE/TIME: 11/05/2018 4:56 pm REASON FOR STUDY: hip pain COMPARISON: None. NUMBER OF VIEWS: Two views. TECHNIQUE: AP pelvis and additional frog-leg view of the left hip. LIMITATIONS: None. FINDINGS: MINERALIZATION: Normal. LEFT HIP: No fracture or dislocation. No worrisome bone lesions. RIGHT HIP: No fracture or dislocation. Moderate arthrosis. PUBIS AND ISCHIUM: No fracture. PELVIS: No fracture. SACRUM: No fracture or dislocation. No worrisome bone lesions. LOWER LUMBAR SPINE: No fracture or dislocation. Moderate degenerative disc disease. SOFT TISSUES: No findings. OTHER: No other significant finding. IMPRESSION: NO RADIOGRAPHIC EVIDENCE OF ACUTE INJURY. TECHNICAL DOCUMENTATION: JOB ID: [id number] [id number] 2010 [employer]- All Rights Reserved Reading location - IP/workstation name: [email or web address]
[2018-11-06] MEDS: IPRATROPIUM BROMIDE 0.02% NEB 0.5 MG/2.5 ML AMPUL NEB SCH ×4 (00:03→23:38)
[2018-11-06] MEDS: LEVALBUTEROL HCL NEB 1.25 MG/3 ML AMPUL NEB SCH ×4 (00:03→23:38)
[2018-11-06] MEDS: HEPARIN SOD (PORCINE) 5,000 UNIT/ML 1 ML VIAL SUBCUT SCH ×3 (05:46→21:08)
[2018-11-06] MEDS: BUDESONIDE NEB 0.5 MG/2 ML AMPUL NEB SCH ×2 (07:53→19:49)
[2018-11-06] MEDS: FLUCONAZOLE 100 MG TABLET PO SCH (10:09)
[2018-11-06] MEDS: DOCUSATE SODIUM 100 MG CAPSULE PO SCH ×2 (10:09→17:44)
[2018-11-06] MEDS: PREDNISONE 20 MG TABLET PO SCH ×2 (10:09→17:44)
[2018-11-06] MEDS: CYANOCOBALAMIN (VITAMIN B-12) 1,000 MCG TABLET PO SCH (10:09)
[2018-11-06] MEDS: FAMOTIDINE 20 MG TABLET PO SCH ×2 (10:09→21:08)
--- NOTE | 2018-11-06 13:20 | XCELERA REPORT ---
[address] [place] [facility] [address] Lower Extremity Venous Evaluation Procedure: Color flow and duplex imaging of the veins of the left lower extremity as well as the right Common Femoral vein. Right Sided Venous Evaluation The right common femoral vein is fully compressible. Spontaneous and phasic flow is present in the right common femoral vein. Left Sided Venous Evaluation Normal vessel filling wall to wall, compression and augmentation as well as Colour flow down to the infrageniculate veins. Interpretation Summary No duplex evidence of DVT or obstruction in the left lower extremity nor in the right Common Femoral vein. Name: LEVI GIBBONS Duarte Age: 68 yrs Gender: Female : 1950 Patient Status: Inpatient Patient Location: [address] [place], [place] [address] Study Date: 11/05/2018 03:01 PM Reason For Study: r/o DVT, left LE Ordering Physician: MARTIN RAMOS Performed By: Vincent Flores : MARTIN RAMOS > Gerard Calderón
--- NOTE | 2018-11-06 16:38 | Progress Note ---
Provider Note Provider Note: 11/05: Patient's discharge was deferred yesterday as there was an issue with acquisition of her BiPAP. Otherwise no acute event overnight. This morning, she complains of mild pain on the left foot. She denies acute shortness of breath and says that she feels she is at her baseline. Note that at her baseline, patient becomes dyspneic upon ambulation at home and hence mostly is confined to her chair or bed. 11/06: No acute event overnight. Patient is just awaiting on acquisition of BIPAP. She did develop pedal edema likely related to fluid retention from the steroids. Will start her on low-dose oral Lasix.
[2018-11-06 17:36] LABS: HEMATOCRIT 30.2 % (36.0-47.0); HEMOGLOBIN 9.3 g/dL (12.0-15.5); MEAN CORPUSCULAR HEMOGLOBIN 26.6 pg (27.0-33.4); MEAN CORPUSCULAR HGB CONC 30.6 g/dL (32.0-36.0); PLATELET COUNT 253 10^3/uL (150-450); RED BLOOD COUNT 3.48 10^6/uL (3.72-5.28); RED CELL DISTRIBUTION WIDTH 36.5 % (11.5-14.0)
[2018-11-06] MEDS: FUROSEMIDE 20 MG TABLET PO SCH (17:44)
[2018-11-06 17:56] LABS: ANION GAP 6 (5-19); BLOOD UREA NITROGEN 24 mg/dL (7-20); CALCIUM 8.1 mg/dL (8.4-10.2); CARBON DIOXIDE 29 mmol/L (22-30); CHLORIDE 100 mmol/L (98-107); GLUCOSE 255 mg/dL (75-110); POTASSIUM 4.5 mmol/L (3.6-5.0)
[2018-11-06 17:58] LABS: MEAN CORPUSCULAR VOLUME 87 fl (80-97)
[2018-11-06 18:06] LABS: ABSOLUTE LYMPHOCYTES# (MANUAL) 2.7 10^3/uL (0.5-4.7); ABSOLUTE MONOCYTES # (MANUAL) 0.3 10^3/uL (0.1-1.4); BAND NEUTROPHILS % (MANUAL) 1 % (3-5); BASOPHILS % (MANUAL) 0 % (0-2); EOSINOPHILS % (MANUAL) 0 % (0-6); LYMPHOCYTES % (MANUAL) 8 % (13-45); MONOCYTES % (MANUAL) 1 % (3-13); NUCLEATED RED BLOOD CELLS 1 /100 WBC (0); SEGMENTED NEUTROPHILS % (MAN) 90 % (42-78); TOTAL CELLS COUNTED 100
[2018-11-06 18:07] LABS: HYPOCHROMASIA SLIGHT; POLYCHROMASIA SLIGHT; TOXIC GRANULATION SLIGHT
[2018-11-06 18:08] LABS: ANISOCYTOSIS 4+; OVALOCYTES 1+; PLATELET COMMENT ADEQUATE; POIKILOCYTOSIS 1+
[2018-11-06 18:09] LABS: WHITE BLOOD COUNT 33.5 10^3/uL (4.0-10.5)
[2018-11-07] MEDS: HEPARIN SOD (PORCINE) 5,000 UNIT/ML 1 ML VIAL SUBCUT SCH (05:57)
[2018-11-07] MEDS: IPRATROPIUM BROMIDE 0.02% NEB 0.5 MG/2.5 ML AMPUL NEB SCH (08:15)
[2018-11-07] MEDS: BUDESONIDE NEB 0.5 MG/2 ML AMPUL NEB SCH (08:15)
[2018-11-07] MEDS: LEVALBUTEROL HCL NEB 1.25 MG/3 ML AMPUL NEB SCH (08:15)
[2018-11-07] MEDS ORDERED: FERRIC CARBOXYMALTOSE INJ 750 MG/15 ML VIAL IV SCH (08:45)
[2018-11-07] MEDS: FAMOTIDINE 20 MG TABLET PO SCH (09:43)
[2018-11-07] MEDS: CYANOCOBALAMIN (VITAMIN B-12) 1,000 MCG TABLET PO SCH (09:43)
[2018-11-07] MEDS: PREDNISONE 20 MG TABLET PO SCH (09:43)
[2018-11-07] MEDS: DOCUSATE SODIUM 100 MG CAPSULE PO SCH (09:43)
[2018-11-07] MEDS: FUROSEMIDE 20 MG TABLET PO SCH (09:43)
[2018-11-07] MEDS: FLUCONAZOLE 100 MG TABLET PO SCH (09:44)
[2018-11-07] MEDS ORDERED: FERRIC CARBOXYMALTOSE 750 MG in NORMAL SALINE 250 ML IV ONE (11:00)
[2018-11-07 12:04] VITALS: BP 130/96
[2018-11-07] MEDS ORDERED: DOFETILIDE 500 MCG CAPSULE PO ONE (12:30)
[2018-11-07 13:57] LABS: PATH REVIEW PATHOLOGIST REVIEWED
--- NOTE | 2018-11-07 14:07 | PDOC PROGRESS REPORT ---
Subjective Progress Note for:: 11/07/18 Subjective:: Patient states that she is feeling much better. She has many questions. ROS: mild dyspnea. Good appetite. Poor energy. Reason For Visit: ANEMIA, ACUTE COPD Physical Exam Vital Signs: Temp Pulse Resp BP Pulse Ox 98.6 F 130 H 24 H 130/96 H 100 11/07/18 12:00 11/07/18 12:00 11/07/18 12:00 11/07/18 12:00 11/07/18 12:00 Intake & Output 11/06/18 11/07/18 11/08/18 06:59 06:59 06:59 Intake Total 1010 1580 505 Balance 1010 1580 505 Weight 104.1 kg 102.5 kg General appearance: PRESENT: no acute distress, morbidly obese Exam: 68 year old female, wearing BiPAP Head exam: PRESENT: normocephalic Respiratory exam: PRESENT: unlabored Neurological exam: PRESENT: other - Able to talk through the BiPAP without difficulty. Psychiatric exam: PRESENT: appropriate affect Skin exam: PRESENT: normal color Results Laboratory Results: 11/06/18 17:10 11/06/18 17:10 11/06/18 11/06/18 17:10 17:10 WBC 33.5 H* RBC 3.48 L Hgb 9.3 L Hct 30.2 L MCV 87 D MCH 26.6 L MCHC 30.6 L RDW 36.5 H Plt Count 253 Seg Neutrophils % Not Reportable Sodium 135.1 L Potassium 4.5 Chloride 100 Carbon Dioxide 29 Anion Gap 6 BUN 24 H Creatinine 0.63 Est GFR ( Amer) > 60 Glucose 255 H Calcium 8.1 L 10/29/18 10/29/18 18:52 18:52 Creatine Kinase 28 L CK-MB (CK-2) 0.63 Troponin I < 0.012 NT-Pro-B Natriuret Pep 562 Impressions: Chest X-Ray 10/31/18 00:00 IMPRESSION: NO ACUTE FINDINGS. Hip X-Ray 11/05/18 00:00 IMPRESSION: NO RADIOGRAPHIC EVIDENCE OF ACUTE INJURY. Foot X-Ray 11/05/18 09:47 IMPRESSION: Soft tissue swelling and osteopenia. No displaced fracture. Assessment & Plan - Diagnosis (1) Anemia, blood loss Is this a current diagnosis for this admission?: Yes (2) COPD exacerbation Is this a current diagnosis for this admission?: Yes (3) Myelodysplasia (myelodysplastic syndrome) Is this a current diagnosis for this admission?: Yes - Plan Summary Plan Summary: She is due today for her second dose of IV iron. I will arrange. I will be happy to follow her as outpatient to follow Hgb, Iron, B12 levels. No evidence of active leukemia at this time.
--- NOTE | 2018-11-07 17:24 | Progress Note ---
Provider Note Provider Note: No acute event overnight. Patient denies acute complaints. She says she feels she is breathing at her baseline. BiPAP finally approved and set up for patient. Proceed with discharge as ordered.
== END 2018-11-07 14:30 | disposition home or self-care (01) | DRG 189 ==
LOC: ER 18:15 → EH 23:03 → 4S 10-30 01:45
PROVIDERS: ADMIT Emergency Medicine; ATTEND Emergency Medicine
PROC: 30233N1 Transfusion of Nonautologous Red Blood Cells into Peripheral Vein, Percutaneous Approach (ICD-10-PCS; principal; 2018-10-29)
PROC: 5A09457 Assistance with Respiratory Ventilation, 24-96 Consecutive Hours, Continuous Positive Airway Pressure (ICD-10-PCS; 2018-10-29)
DX: J96.01 Acute respiratory failure with hypoxia (principal); J44.1 Chronic obstructive pulmonary disease with (acute) exacerbation; B37.0 Candidal stomatitis; J96.22 Acute and chronic respiratory failure with hypercapnia; I48.2 Chronic atrial fibrillation; I10 Essential (primary) hypertension; E03.9 Hypothyroidism, unspecified; E66.9 Obesity, unspecified; K21.9 Gastro-esophageal reflux disease without esophagitis; M19.90 Unspecified osteoarthritis, unspecified site; F32.9 Major depressive disorder, single episode, unspecified; D46.9 Myelodysplastic syndrome, unspecified; D50.0 Iron deficiency anemia secondary to blood loss (chronic); Z86.711 Personal history of pulmonary embolism; Z90.49 Acquired absence of other specified parts of digestive tract; Z87.891 Personal history of nicotine dependence; Z83.3 Family history of diabetes mellitus; Z82.49 Family history of ischemic heart disease and other diseases of the circulatory system; Z83.6 Family history of other diseases of the respiratory system; Z79.890 Hormone replacement therapy; Z79.82 Long term (current) use of aspirin; Z79.899 Other long term (current) drug therapy; Z99.81 Dependence on supplemental oxygen; Z88.5 Allergy status to narcotic agent
CPT/HCPCS: 36415; 36430; 36600; 71045; 80048; 80053; 80061; 81001; 82272; 82550; 82553; 82607; 82728; 82746; 82803; 83540; 83550; 83735; 83880; 84439; 84443; 84481; 84484; 85025; 85027; 85045; 86850; 86900; 86901; 86920; 87040; 93005; 93010; 93971; 94640; 94660; 96374; 99285; J0696; J1439; J1644; J1940; J2920; J2930; J3490; J7050; J7512; J7614; P9016

== ENCOUNTER → 2018-12-26 | Outpatient (CLI) | payer MEDICARE, BC ==
[2018-12-26 17:29] LABS: BLOOD UREA NITROGEN 22 mg/dL (7-20); CALCIUM 8.8 mg/dL (8.4-10.2); CHLORIDE 82 mmol/L (98-107); GLUCOSE 160 mg/dL (75-110); POTASSIUM 3.1 mmol/L (3.6-5.0)
[2018-12-26 17:52] LABS: ANION GAP 13 (5-19); CARBON DIOXIDE 43 mmol/L (22-30)
== END ==
LOC: OD 16:16
PROVIDERS: ATTEND Internal Medicine Cardiovascular Disease
DX: I10 Essential (primary) hypertension (principal)
CPT/HCPCS: 36415; 80048

== ENCOUNTER 2019-04-13 21:11 | Inpatient (IN) | payer MEDICARE, BC ==
[2019-04-13] MEDS ORDERED: IPRATROPIUM/ALBUTEROL 0.5-2.5 MG/3 ML AMPUL NEB ONE (21:13)
[2019-04-13] MEDS: ALBUTEROL SULFATE 0.083% NEB 2.5 MG/3 ML AMPUL NEB SCH ×2 (21:26→23:12)
--- NOTE | 2019-04-13 21:46 | ER Document Report ---
ED Respiratory Problem - General Chief Complaint: Respiratory Distress Stated Complaint: TROUBLE BREATHING/WEAKNESS Time Seen by Provider: 04/13/19 21:37 Notes: Patient is a 69-year-old female that comes to the emergency department for chief complaint of difficulty breathing. She states she has had worsening difficulty breathing with wheezing for the past week, she states today this became much worse, she states she attempted to get in the car to be transported to the emergency department but she could not make it therefore EMS was called. EMS noted her initial oxygen saturation was 88% on her home 2 L nasal cannula, she initially was in respiratory distress, she received 2 duo nebs, 125 mg of Solu- Medrol, 2 g of magnesium, 4 mg of Zofran. Patient reports that she is improved but still is having difficulty breathing. She denies fever, chest pain, or any other complaints. She does have a history of COPD on 2 L nasal cannula at all times and either CPAP or BiPAP at night (patient states BiPAP but she is uncertain). Patient reports that 2 months ago she was hospitalized for an extended period as well. Past medical history includes atrial fibrillation and congestive heart failure as well. TRAVEL OUTSIDE OF THE [place] IN LAST 30 DAYS: No - Related Data Allergies/Adverse Reactions: hydromorphone HCl [From Dilaudid] Allergy (Severe, Verified 04/13/19 21:13) Passed out Past Medical History - General Information source: Patient, Relative - Social History Smoking Status: Former Smoker Chew tobacco use (# tins/day): No Frequency of alcohol use: None Drug Abuse: None Lives with: Family Family History: CAD, COPD, DM, Hypertension. denies: Malignancy Patient has suicidal ideation: No Patient has homicidal ideation: No - Past Medical History Cardiac Medical History: Reports: Hx Atrial Fibrillation, Hx Hypertension, Hx Pulmonary Embolism - 30+yrs ago Denies: Hx Congestive Heart Failure, Hx Coronary Artery Disease, Hx Heart Attack, Hx Hypercholesterolemia, Hx Peripheral Vascular Disease, Hx Heart Murmur Pulmonary Medical History: Reports: Hx Asthma, Hx Bronchitis, Hx COPD, Hx Pneumonia, Hx Respiratory Failure, Hx Tuberculosis Denies: Hx Sleep Apnea Neurological Medical History: Denies: Hx Cerebrovascular Accident, Hx Seizures Endocrine Medical History: Reports: Hx Hypothyroidism. Denies: Hx Diabetes Mellitus Type 1, Hx Diabetes Mellitus Type 2, Hx Graves' Disease, Hx Hyperthyroidism Renal/ Medical History: Denies: Hx End Stage Renal Disease, Hx Kidney Stones, Hx Peritoneal Dialysis Malignancy Medical History: Denies: Hx Lung Cancer GI Medical History: Reports: Hx Gastroesophageal Reflux Disease. Denies: Hx Cirrhosis, Hx Crohn's Disease, Hx Diverticulitis, Hx Hepatitis, Hx Hiatal Hernia, Hx Ulcer, Hx Ulcerative Colitis Musculoskeletal Medical History: Reports Hx Arthritis, Denies Hx Fibromyalgia, Denies Hx Gout, Denies Hx Muscular Dystrophy, Denies Hx Systemic Lupus Erythematosus Skin Medical History: Denies Hx Eczema, Denies Hx Psoriasis Psychiatric Medical History: Reports: Hx Depression Denies: Hx Bipolar Disorder, Hx Post Traumatic Stress Disorder, Hx Schizophrenia Traumatic Medical History: Denies: Hx Fractures Infectious Medical History: Denies: Hx C-Diff, Hx Hepatitis, Hx MRSA Past Surgical History: Reports: Hx Hysterectomy, Hx Orthopedic Surgery - CARPAL TUNNEL RELEASE, GANGLION CYST REMOVAL, TRIGGER FINGER RELEASE, Hx Tubal Ligation, Hx Urinary Tract Surgery. Denies: Hx Appendectomy, Hx Bowel Surgery, Hx Section, Hx Cholecystectomy, Hx Coronary Artery Bypass Graft, Hx Gastric Bypass Surgery, Hx Herniorrhaphy, Hx Mastectomy, Hx Open Heart Surgery, Hx Pacemaker, Hx Tonsillectomy - Immunizations Hx Diphtheria, Pertussis, Tetanus Vaccination: Yes Hx Pneumococcal Vaccination: 02/22/10 Review of Systems - Review of Systems Constitutional: No symptoms reported EENT: No symptoms reported Cardiovascular: No symptoms reported Respiratory: See HPI Gastrointestinal: No symptoms reported Genitourinary: No symptoms reported Female Genitourinary: No symptoms reported Musculoskeletal: No symptoms reported Skin: No symptoms reported Hematologic/Lymphatic: No symptoms reported Neurological/Psychological: No symptoms reported Physical Exam - Vital signs Vitals: Resp BP Pulse Ox 23 H 122/80 100 04/13/19 21:13 04/13/19 21:13 04/13/19 21:13 - Notes Notes: GENERAL: Alert, responsive HEAD: Normocephalic, atraumatic. EYES: Pupils equal, round, and reactive to light. Extraocular movements intact. ENT: Oral mucosa moist, tongue midline. Oropharynx unremarkable. Airway patent. Nares patent, no nasal septal hematoma NECK: Full range of motion. Supple. Trachea midline. LUNGS: Tachypnea with labored breathing, expiratory wheezes throughout, scattered rhonchi throughout HEART: Regular rate and rhythm. No murmur ABDOMEN: Soft, non-tender. Non-distended. EXTREMITIES: Moves all 4 extremities spontaneously. No edema, normal radial and dorsalis pedis pulses bilaterally. No cyanosis. BACK: no cervical, thoracic, lumbar midline tenderness. No saddle anesthesia, normal distal neurovascular exam. Moves all extremities in full range of motion. NEUROLOGICAL: Alert and oriented x3. Normal speech. Cranial nerves II through XII grossly intact. SKIN: Warm, dry, normal turgor. No rashes or lesions noted. Course - Re-evaluation Re-evalutation: 04/13/19 21:45 Patient was 94% on nebulizer treatment with diffuse expiratory wheezes, labored breathing, tachypnea, mild respiratory distress. She has already been given magnesium, Solu-Medrol, 3 duo nebs, and now she is on albuterol. She will be placed on BiPAP. Patient reevaluated closely, now that she is on BiPAP her respiratory distress has resolved, hypoxia resolved, she is much more comfortable. She still has expiratory wheezes and scattered rhonchi. She states she feels much improved but not close to her baseline. Venous blood gas unremarkable, CBC shows leukocytosis at 21.5 thousand with elevation of neutrophils but no bandemia. Chemistry nonspecific, troponin is not elevated, BNP borderline. Chest x-ray indicates right lower lobe pneumonia. Influenza is negative. Discussed with patient and family. Because of patient's respiratory distress, continued respiratory symptoms despite treatments, hospital-acquired pneumonia based on recent admission, hypoxia patient will require admission. She has been started on cefepime and vancomycin. Blood cultures are pending. Patient and family state appreciation and agreement. Discussed with Dr. Andrews, hospitalist, patient accepted to medical floor full admission. - Vital Signs Vital signs: Temp Pulse Resp BP Pulse Ox 98.1 F 80 26 H 141/75 H 100 04/14/19 02:31 04/14/19 02:31 04/14/19 02:31 04/14/19 02:31 04/14/19 02:31 - Laboratory Result Diagrams: 04/13/19 23:00 04/13/19 23:00 Laboratory results interpreted by me: 04/13/19 04/13/19 04/13/19 23:00 23:00 23:00 WBC 21.5 H Hgb 10.6 L Hct 34.7 L MCH 26.0 L MCHC 30.7 L RDW 17.2 H Seg Neuts % (Manual) 95 H Band Neutrophils % 1 L Lymphocytes % (Manual) 2 L Monocytes % (Manual) 0 L Abs Neuts (Manual) 20.6 H Abs Monocytes (Manual) 0.0 L Glucose 208 H Calcium 8.2 L Direct Bilirubin 0.5 H Alkaline Phosphatase 146 H NT-Pro-B Natriuret Pep 880 H Albumin 3.0 L Discharge - Discharge Clinical Impression: Respiratory distress, Hypoxia Pneumonia Qualifiers: Pneumonia type: due to unspecified organism Laterality: right Lung location: lower lobe of lung Qualified Code(s): J18.9 - Pneumonia, unspecified organism Leukocytosis Qualifiers: Leukocytosis type: unspecified Qualified Code(s): D72.829 - Elevated white blood cell count, unspecified Condition: Stable Disposition: ADMITTED INPATIENT Admitting Provider: Juliana (Hospitalist) Unit Admitted: Medical Floor
[2019-04-13] MEDS ORDERED: ACETAMINOPHEN 325 MG TABLET PO ONE (21:51)
--- NOTE | 2019-04-13 22:35 | RADIOLOGY REPORT (SQ) ---
EXAM DESCRIPTION: XR CHEST 1 VIEW COMPLETED DATE/TME: 04/13/2019 21:16 CLINICAL HISTORY: 69 years, Female, SOB COMPARISON: January 30, 2019 NUMBER OF VIEWS: Single TECHNIQUE: LIMITATIONS: None. FINDINGS: Cardiomediastinal silhouette is enlarged with postsurgical change or chronic parenchymal lung change. Patchy airspace disease right hemithorax laterally and inferiorly. This is adverse change from prior. No effusion. No pneumothorax IMPRESSION: Patchy airspace disease right hemithorax, suspicious for pneumonia copyright 2010 [employer]- All Rights Reserved
[2019-04-13 22:39] LABS: A TYPE INFLUENZA AG NEGATIVE (NEGATIVE); B INFLUENZA AG NEGATIVE (NEGATIVE)
[2019-04-13] MEDS ORDERED: VANCOMYCIN HCL INJ 1000 MG VIAL IV ONE (22:41)
[2019-04-13] MEDS ORDERED: CEFEPIME 2 GM/D5W RTU 2 GM/50 ML RTUPB IV ONE (22:41)
[2019-04-13 23:25] LABS: VENOUS BLOOD HCO3 28.7 mmol/L (20-32); VENOUS BLOOD PCO2 57.2 mmHg (35-63); VENOUS BLOOD PH 7.32 (7.30-7.42)
[2019-04-13 23:27] LABS: HEMATOCRIT 34.7 % (36.0-47.0); HEMOGLOBIN 10.6 g/dL (12.0-15.5); MEAN CORPUSCULAR HGB CONC 30.7 g/dL (32.0-36.0); MEAN CORPUSCULAR VOLUME 85 fl (80-97); PLATELET COUNT 414 10^3/uL (150-450); RED BLOOD COUNT 4.09 10^6/uL (3.72-5.28); RED CELL DISTRIBUTION WIDTH 17.2 % (11.5-14.0); WHITE BLOOD COUNT 21.5 10^3/uL (4.0-10.5)
[2019-04-13 23:43] LABS: ALKALINE PHOSPHATASE 146 U/L (38-126); ANION GAP 9 (5-19); ASPARTATE AMINO TRANSFERASE 22 U/L (14-36); BILIRUBIN,DIRECT 0.5 mg/dL (0.0-0.4); BILIRUBIN,TOTAL 0.5 mg/dL (0.2-1.3); BLOOD UREA NITROGEN 12 mg/dL (7-20); CALCIUM 8.2 mg/dL (8.4-10.2); CARBON DIOXIDE 29 mmol/L (22-30); CHLORIDE 102 mmol/L (98-107); GLUCOSE 208 mg/dL (75-110); POTASSIUM 3.8 mmol/L (3.6-5.0); TOTAL PROTEIN 6.5 g/dL (6.3-8.2)
[2019-04-13 23:51] LABS: TROPONIN I 0.013 ng/mL
[2019-04-14 00:01] LABS: ABSOLUTE LYMPHOCYTES# (MANUAL) 0.6 10^3/uL (0.5-4.7); BAND NEUTROPHILS % (MANUAL) 1 % (3-5); BASOPHILS % (MANUAL) 0 % (0-2); EOSINOPHILS % (MANUAL) 1 % (0-6); LYMPHOCYTES % (MANUAL) 2 % (13-45); MONOCYTES % (MANUAL) 0 % (3-13); SEGMENTED NEUTROPHILS % (MAN) 95 % (42-78); TOTAL CELLS COUNTED 100
[2019-04-14 00:03] LABS: PLATELET COMMENT ADEQUATE
[2019-04-14 00:04] LABS: ANISOCYTOSIS 1+; TEAR DROP CELLS SLIGHT
[2019-04-14] MEDS ORDERED: HYDRALAZINE HCL INJ/PF 20 MG/1 ML SDV IV PRN (01:17)
[2019-04-14] MEDS ORDERED: GUAIFENESIN SYRP 200 MG/10 ML UDC PO PRN (01:17)
[2019-04-14] MEDS ORDERED: NICOTINE 21 MG/24 HR PATCH.TD24 TD PRN (01:17)
[2019-04-14] MEDS ORDERED: LORAZEPAM INJ 2 MG/1 ML VIAL IV PRN (01:17)
[2019-04-14] MEDS ORDERED: MAG HYDROX/AL HYDROX/SIMETH SUSP 30 ML UDCUP PO PRN (01:17)
[2019-04-14] MEDS ORDERED: MORPHINE SULFATE 10 MG/ML INJ IV PRN ×2 (01:17)
[2019-04-14] MEDS ORDERED: MAGNESIUM HYDROXIDE SUSP 30 ML UDCUP PO PRN (01:17)
[2019-04-14] MEDS ORDERED: PROMETHAZINE HCL INJ 25 MG/1 ML VIAL IV PRN (01:21)
[2019-04-14] MEDS: METHYLPREDNISOLONE INJ 40 MG/1 ML SDV IV SCH ×3 (05:57→17:45)
[2019-04-14] MEDS: PANTOPRAZOLE SODIUM 40 MG TABLET.DR PO SCH (05:57)
[2019-04-14] MEDS: LEVOTHYROXINE SODIUM 0.112 MG TABLET PO SCH ×2 (05:57→09:05)
[2019-04-14] MEDS ORDERED: ROPINIROLE HCL 2 MG TABLET ONE (05:58)
[2019-04-14] MEDS: ACETAMINOPHEN 325 MG TABLET PO PRN ×2 (06:01→13:24)
[2019-04-14] MEDS: ROPINIROLE HCL 2 MG TABLET PO SCH ×3 (06:22→21:53)
[2019-04-14] MEDS: LEVALBUTEROL HCL NEB 1.25 MG/3 ML AMPUL NEB SCH ×2 (08:29→15:54)
[2019-04-14] MEDS: BUDESONIDE NEB 0.5 MG/2 ML AMPUL NEB SCH ×2 (08:29→19:49)
[2019-04-14] MEDS: IPRATROPIUM BROMIDE 0.02% NEB 0.5 MG/2.5 ML AMPUL NEB SCH ×2 (08:29→15:54)
[2019-04-14] MEDS: ACETYLCYSTEINE 20% SOLN 800 MG/4 ML VIAL.NEB NEB SCH ×2 (08:33→19:49)
[2019-04-14] MEDS: MAGNESIUM OXIDE 400 MG TABLET PO SCH (09:04)
[2019-04-14] MEDS: DOCUSATE SODIUM 100 MG CAPSULE PO SCH ×2 (09:04→17:45)
[2019-04-14] MEDS: CITALOPRAM HYDROBROMIDE 20 MG TABLET PO SCH (09:04)
[2019-04-14] MEDS: ATORVASTATIN CALCIUM 40 MG TABLET PO SCH (09:04)
[2019-04-14] MEDS: RINGERS SOLUTION,LACTATED 1,000 ML IV PRN ×2 (09:04→17:44)
[2019-04-14] MEDS: ROFLUMILAST 500 MCG TABLET PO SCH (09:05)
[2019-04-14] MEDS: CETIRIZINE 10 MG TABLET PO SCH (09:05)
[2019-04-14] MEDS: POTASSIUM CHLORIDE 10 MEQ TABLET.ER PO SCH ×2 (09:05→17:45)
[2019-04-14] MEDS: BUSPIRONE HCL 10 MG TABLET PO SCH ×2 (09:05→21:53)
[2019-04-14] MEDS: CYANOCOBALAMIN (VITAMIN B-12) 1,000 MCG TABLET PO SCH (09:07)
[2019-04-14] MEDS: ASPIRIN 81 MG TABLET, ENT COATED PO SCH (09:07)
[2019-04-14] MEDS: FERROUS SULFATE 325 MG TABLET PO SCH (09:07)
[2019-04-14] MEDS: APIXABAN 5 MG TABLET PO SCH ×2 (09:07→17:45)
[2019-04-14] MEDS: FUROSEMIDE 20 MG TABLET PO SCH ×2 (09:08→17:45)
[2019-04-14] MEDS: MORPHINE SULFATE 10 MG/ML INJ IV PRN ×2 (09:15→17:48)
[2019-04-14] MEDS ORDERED: CEFEPIME 2 GM/D5W RTU 2 GM/50 ML RTUPB IV SCH (10:00)
--- NOTE | 2019-04-14 10:31 | PDOC H&P ---
History of Present Illness Admission Date/PCP: 04/14/2019 01:25 AUGSTO AGRAWAL DO Patient complains of: Dyspnea History of Present Illness: LEVI GIBBONS is a 69 year old female presented emergency room with a one-week history of dyspnea. Patient admits that she has experienced gradually worsening dyspnea over the last week becoming extremely severe this evening prior to calling EMS. Her dyspnea has been accompanied by wheezing and is worsened with exertion. She denies other associated or accompanying signs and symptoms. She admits numerous prior similar episodes with exacerbations of her COPD. She is on chronic home O2 at 2 L/min via nasal cannula and on CPAP at bedtime for obst ructive sleep apnea. She has not identified any additional aggravating or ameliorating factors for her dyspnea. In the emergency room patient was found to have acute on chronic respiratory failure with hypoxia requiring BiPAP to alleviate her dyspnea and extreme respiratory failure/respiratory distress symptoms. She was also noted to have an elevated white count which is actually on the low end of her recent baseline range. Chest x-ray reported airspace disease however on evaluation of previous chest x-rays I have noted that the same pattern exists on each x-ray in exactly the same area and feels this most likely represents chronic change rather than acute. Patient was subsequently admitted to the hospital for further evaluation treatment. Past Medical History Cardiac Medical History: Reports: Atrial Fibrillation, Hypertension, Pulmonary Embolism - 30+yrs ago Denies: Congestive Heart Failure, Coronary Artery Disease, Myocardial Infarction, Hyperlipidema, Peripheral Vascular Disease, Heart Murmur Pulmonary Medical History: Reports: Asthma, Bronchitis, Chronic Obstructive Pulmonary Disease (COPD), Pneumonia, Respiratory Failure, Tuberculosis Denies: Sleep Apnea EENT Medical History: Denies: Cataracts, Ears - Hearing aids Neurological Medical History: Denies: Hemorrhagic CVA, Ischemic CVA, Seizures Endocrine Medical History: Reports: Hypothyroidism Denies: Diabetes Mellitus Type 1, Diabetes Mellitus Type 2, Hyperthyroidism Renal/ Medical History: Denies: Chronic Kidney Disease, Nephrolithiasis Malignancy Medical History: Reports: None GI Medical History: Reports: Gastroesophageal Reflux Disease Denies: Cirrhosis, Crohn's Disease, Diverticulitis, Hepatitis, Hiatal Hernia, Peptic Ulcer Disease, Ulcerative Colitis Musculoskeltal Medical History: Reports: Arthritis Denies: Fibromyalgia, Gout Skin Medical History: Denies: Eczema, Psoriasis Psychiatric Medical History: Reports: Depression, Tobacco Dependency Denies: Alcohol Dependency, Bipolar Disorder, Post Traumatic Stress Disorder, Substance Abuse Traumatic Medical History: Reports: None Hematology: Reports: Anemia - Myelodysplastic syndrome Denies: Bleeding Tendencies Infectious Medical History: Denies: Clostridium Difficile, Methicillin-Resistant Staph Aureus Past Surgical History Past Surgical History: Reports: Hysterectomy, Orthopedic Surgery - Carpal tunnel, ganglion cyst, trigger finger, Tubal Ligation Social History Information Source: Patient Lives with: Alone Smoking Status: Former Smoker Electronic Cigarette use?: No Frequency of Alcohol Use: None Hx Recreational Drug Use: No Drugs: None Hx Prescription Drug Abuse: No - Advance Directive Resuscitation Status: Full Code Surrogate healthcare decision maker:: Romana Glez Family History Family History: CAD, COPD, DM, Hypertension. denies: Malignancy Parental Family History Reviewed: Yes Children Family History Reviewed: No Sibling(s) Family History Reviewed.: Yes Medication/Allergy Home Medications: Albuterol Sulfate [Proair HFA Inhalation Aerosol 8.5 gm MDI] 2 puff IH Q4HP PRN 10/30/18 Aspirin [Ecotrin 81 mg EC Tablet] 81 mg PO DAILY 10/30/18 Atorvastatin Calcium [Lipitor 40 mg Tablet] 20 mg PO DAILY 10/30/18 Budesonide/Formoterol Fumarate [Symbicort HFA 160-4.5 mcg Inhaler 6 gm] 2 puff IH Q12 10/30/18 Citalopram Hydrobromide [Celexa 40 mg Tablet] 40 mg PO DAILY 10/30/18 Pantoprazole Sodium [Protonix [address] Tablet] 40 mg PO Q6AM 10/30/18 Roflumilast [Daliresp 500 mcg Tablet] 500 mcg PO DAILY 10/30/18 Ropinirole HCl [Requip 2 mg Tablet] 2 mg PO Q8 10/30/18 Cyanocobalamin (Vitamin B-12) [Vitamin B-12 1000 mcg Tablet] 1,000 mcg PO DAILY #30 tablet 11/04/18 Ferrous Sulfate [Albafort] 325 mg PO DAILY #30 tablet 11/04/18 Apixaban [Eliquis 5 mg Tablet] 5 mg PO BID 04/13/19 Buspirone HCl 1 tab PO BID 04/13/19 Cetirizine HCl [Zyrtec] 10 mg PO DAILY 04/13/19 Furosemide [Lasix 20 mg Tablet] 80 mg PO BID 04/13/19 Levothyroxine Sodium [Synthroid 0.112 mg Tablet] 112 mcg PO DAILY 04/13/19 Magnesium Oxide [Magnesium] 400 mg PO DAILY 04/13/19 Potassium Chloride 20 meq PO BID 04/13/19 Allergies/Adverse Reactions: hydromorphone HCl [From Dilaudid] Allergy (Severe, Verified 04/13/19 21:13) Passed out Review of Systems Constitutional: ABSENT: chills, fever(s) Eyes: ABSENT: visual disturbances, other - Eye pain Ears: ABSENT: hearing changes, other - Ear pain Nose, Mouth, and Throat: ABSENT: headache(s), mouth pain, sore throat Cardiovascular: PRESENT: as per HPI, dyspnea on exertion. ABSENT: chest pain, edema, orthropnea, palpitations Respiratory: PRESENT: as per HPI, dyspnea. ABSENT: cough, hemoptysis Gastrointestinal: ABSENT: abdominal pain, constipation, diarrhea, nausea, vomiting Genitourinary: ABSENT: dysuria, hematuria Musculoskeletal: ABSENT: back pain, joint swelling Integumentary: ABSENT: diaphoresis, pruritus, rash Neurological: ABSENT: confusion, convulsions, focal weakness, memory loss, syncope Psychiatric: ABSENT: anxiety, depression Endocrine: ABSENT: cold intolerance, heat intolerance, polydipsia, polyphagia, polyuria Hematologic/Lymphatic: ABSENT: easy bleeding, easy bruising Allergic/Immunologic: ABSENT: seasonal rhinorrhea Physical Exam Vital Signs: Temp Pulse Resp BP Pulse Ox 97.3 F 80 24 H 108/91 H 100 04/14/19 00:00 04/13/19 23:15 04/14/19 00:01 04/14/19 00:00 04/14/19 00:01 Intake & Output 04/12/19 04/13/19 04/14/19 23:59 23:59 23:59 Intake Total 50 Balance 50 Weight 97.6 kg General appearance: PRESENT: no acute distress, cooperative, other - On BiPAP at the time of my exam Head exam: PRESENT: atraumatic, normocephalic Eye exam: PRESENT: conjunctiva pink. ABSENT: conjunctival injection, scleral icterus Ear exam: PRESENT: normal external ear exam. ABSENT: bleeding, drainage Mouth exam: PRESENT: dry mucosa, neck supple Neck exam: ABSENT: thyromegaly, tracheal deviation Respiratory exam: PRESENT: decreased breath sounds - Moderately decreased breath sounds noted throughout all lung wylie, prolonged expiratory phas - Expiratory wheezes noted in all lung wylie mildly prolonged expiratory phase noted in all lung wylie, symmetrical, wheezes Cardiovascular exam: PRESENT: RRR. ABSENT: clicks, gallop, rubs Pulses: PRESENT: normal radial pulses, normal dorsalis pedis pul Vascular exam: PRESENT: normal capillary refill. ABSENT: pallor GI/Abdominal exam: PRESENT: normal bowel sounds, soft Rectal exam: PRESENT: deferred Extremities exam: ABSENT: joint swelling, pedal edema Musculoskeletal exam: ABSENT: deformity, dislocation Neurological exam: PRESENT: alert, oriented to person, oriented to place, oriented to time, oriented to situation, CN II-XII grossly intact. ABSENT: shreya r sensory deficit Psychiatric exam: PRESENT: appropriate affect, normal mood Skin exam: PRESENT: dry, intact, warm. ABSENT: jaundice, rash, urticaria Results Laboratory Results: 04/13/19 23:00 04/13/19 23:00 04/13/19 04/13/19 04/13/19 23:00 23:00 23:00 WBC 21.5 H RBC 4.09 Hgb 10.6 L Hct 34.7 L MCV 85 MCH 26.0 L MCHC 30.7 L RDW 17.2 H Plt Count 414 Seg Neutrophils % Not Reportable VBG pH 7.32 VBG pCO2 57.2 VBG HCO3 28.7 VBG Base Excess 1.0 Sodium 139.5 Potassium 3.8 Chloride 102 Carbon Dioxide 29 Anion Gap 9 BUN 12 Creatinine 0.59 Est GFR ( Amer) > 60 Glucose 208 H Calcium 8.2 L Total Bilirubin 0.5 AST 22 Alkaline Phosphatase 146 H Total Protein 6.5 Albumin 3.0 L 04/13/19 23:00 Troponin I 0.013 NT-Pro-B Natriuret Pep 880 H Impressions: Chest X-Ray 04/13/19 21:16 IMPRESSION: Patchy airspace disease right hemithorax, suspicious for pneumonia copyright 2010 [employer]- All Rights Reserved Assessment and Plan - Diagnosis (1) COPD exacerbation Is this a current diagnosis for this admission?: Yes (2) Acute and chronic respiratory failure with hypoxia Is this a current diagnosis for this admission?: Yes (3) Obstructive sleep apnea of adult Is this a current diagnosis for this admission?: Yes (4) Myelodysplasia (myelodysplastic syndrome) Is this a current diagnosis for this admission?: Yes (5) Hypothyroidism Qualifiers: Hypothyroidism type: unspecified Qualified Code(s): E03.9 - Hypothyroidism, unspecified Is this a current diagnosis for this admission?: Yes (6) GERD (gastroesophageal reflux disease) Qualifiers: Esophagitis presence: with esophagitis Qualified Code(s): K21.0 - Gastro- esophageal reflux disease with esophagitis Is this a current diagnosis for this admission?: Yes (7) HTN (hypertension) Qualifiers: Hypertension type: essential hypertension Qualified Code(s): I10 - Essential (primary) hypertension Is this a current diagnosis for this admission?: Yes (8) Chronic atrial fibrillation Is this a current diagnosis for this admission?: Yes (9) Anticoagulated Is this a current diagnosis for this admission?: Yes - Plan Summary Summary: Patient is admitted to medical floor where she will receive routine supportive and symptomatic cares. Patient will proceed with aggressive pulmonary toilet utilizing nebulized Xopenex, Atrovent, Pulmicort and Mucomyst. She will receive empiric antibiotic therapy utilizing cefepime 2 g IV every 12 hours. She received IV Solu-Medrol 40 mg every 6 hours x3 doses. She received supplemental oxygen utilizing BiPAP or other airway pressure support devices such as CPAP and/or nasal cannula oxygen to maintain an adequate oxygen saturation throughout her hospital course. To use morphine sulfate 2 to 4 mg IV every 2 hours as needed pain and Ativan 1 mg IV every 4 hours as needed anxiety or agitation. CBCs metabolic profiles and magnesium levels will be obtained as needed. Patient will be continued on her usual home medications for her chronic medical illnesses. She will be treated with a cardiac diet. - Time Time Spent with patient: 15-24 minutes Medications reviewed and adjusted accordingly: Yes Anticipated discharge: Home - Inpatient Certification Based on my medical assessment, after consideration of the patient's comorbidities, presenting symptoms, or acuity I expect that the services needed warrant INPATIENT care.: Yes I certify that my determination is in accordance with my understanding of Medicare's requirements for reasonable and necessary INPATIENT services [42 CFR 412.3e].: Yes Medical Necessity: Need Close Monitoring Due to Risk of Patient Decompensation, Need for Nebulizer Therapy and Monitoring of Response, Risk of Complication if Not Cared For in Hospital
--- NOTE | 2019-04-14 10:43 | EKG REPORT ---
SEVERITY:- ABNORMAL ECG - AFIB/FLUTTER AND VENTRICULAR-PACED RHYTHM : Confirmed by: Shanna Grace 14-Apr-2019 10:42:17
[2019-04-14] MEDS: CEFEPIME HCL 2 GM in DEXTROSE 5%-WATER 50 ML IV SCH ×2 (11:49→21:51)
--- NOTE | 2019-04-14 12:02 | Progress Note ---
Provider Note Provider Note: 04/14/2019 Seen briefly for her COPD exacerbation, pneumonia, shortness of breath Patient uses oxygen at home and BiPAP at home as well Patient characteristically runs a high white count based on her previous admissions Several months [facility] the [facility] Patient is currently on a nonrebreather and says she feels some better Chest x-ray from last night shows possible early mild pneumonia. Flu swab is negative Temperature 98.1 pulse 80 blood pressure 108/91 O2 sat 100% on 2 L nasal cannula Patient states she is feeling better today than on admission
[2019-04-15] MEDS: TEMAZEPAM 15 MG CAPSULE PO PRN ×2 (00:28→22:58)
[2019-04-15] MEDS: LEVALBUTEROL HCL NEB 1.25 MG/3 ML AMPUL NEB SCH ×3 (00:34→16:13)
[2019-04-15] MEDS: IPRATROPIUM BROMIDE 0.02% NEB 0.5 MG/2.5 ML AMPUL NEB SCH ×3 (00:34→16:13)
[2019-04-15 05:39] LABS: HEMATOCRIT 31.1 % (36.0-47.0); HEMOGLOBIN 9.7 g/dL (12.0-15.5); MEAN CORPUSCULAR HEMOGLOBIN 26.3 pg (27.0-33.4); MEAN CORPUSCULAR HGB CONC 31.2 g/dL (32.0-36.0); MEAN CORPUSCULAR VOLUME 84 fl (80-97); PLATELET COUNT 363 10^3/uL (150-450); RED CELL DISTRIBUTION WIDTH 16.9 % (11.5-14.0); WHITE BLOOD COUNT 26.6 10^3/uL (4.0-10.5)
[2019-04-15] MEDS: ROPINIROLE HCL 2 MG TABLET PO SCH ×3 (06:10→23:00)
[2019-04-15] MEDS: PANTOPRAZOLE SODIUM 40 MG TABLET.DR PO SCH (06:10)
[2019-04-15 06:11] LABS: ANION GAP 6 (5-19); BLOOD UREA NITROGEN 15 mg/dL (7-20); CALCIUM 8.2 mg/dL (8.4-10.2); CARBON DIOXIDE 29 mmol/L (22-30); CHLORIDE 102 mmol/L (98-107); GLUCOSE 128 mg/dL (75-110); POTASSIUM 4.3 mmol/L (3.6-5.0)
[2019-04-15] MEDS: ACETAMINOPHEN 325 MG TABLET PO PRN (07:29)
[2019-04-15] MEDS: POTASSIUM CHLORIDE 10 MEQ TABLET.ER PO SCH ×2 (08:38→17:19)
[2019-04-15] MEDS: BUDESONIDE NEB 0.5 MG/2 ML AMPUL NEB SCH ×2 (08:52→21:00)
[2019-04-15] MEDS: ACETYLCYSTEINE 20% SOLN 800 MG/4 ML VIAL.NEB NEB SCH ×2 (08:52→21:00)
[2019-04-15] MEDS: ATORVASTATIN CALCIUM 40 MG TABLET PO SCH (10:13)
[2019-04-15] MEDS: CETIRIZINE 10 MG TABLET PO SCH (10:13)
[2019-04-15] MEDS: FERROUS SULFATE 325 MG TABLET PO SCH (10:13)
[2019-04-15] MEDS: CYANOCOBALAMIN (VITAMIN B-12) 1,000 MCG TABLET PO SCH (10:13)
[2019-04-15] MEDS: BUSPIRONE HCL 10 MG TABLET PO SCH ×2 (10:13→22:56)
[2019-04-15] MEDS: MAGNESIUM OXIDE 400 MG TABLET PO SCH (10:14)
[2019-04-15] MEDS: LEVOTHYROXINE SODIUM 0.112 MG TABLET PO SCH (10:14)
[2019-04-15] MEDS: CITALOPRAM HYDROBROMIDE 20 MG TABLET PO SCH (10:14)
[2019-04-15] MEDS: ASPIRIN 81 MG TABLET, ENT COATED PO SCH (10:14)
[2019-04-15] MEDS: DOCUSATE SODIUM 100 MG CAPSULE PO SCH ×2 (10:14→17:19)
[2019-04-15] MEDS: FUROSEMIDE 20 MG TABLET PO SCH ×2 (10:14→17:20)
[2019-04-15] MEDS: ROFLUMILAST 500 MCG TABLET PO SCH (10:14)
[2019-04-15] MEDS: APIXABAN 5 MG TABLET PO SCH ×2 (10:14→17:19)
[2019-04-15] MEDS: MORPHINE SULFATE 10 MG/ML INJ IV PRN (10:14)
[2019-04-15] MEDS: CEFEPIME HCL 2 GM in DEXTROSE 5%-WATER 50 ML IV SCH ×2 (10:16→22:58)
[2019-04-15] MEDS ORDERED: ONDANSETRON HCL INJ/PF 4 MG/2 ML SDV IV PRN (12:15)
[2019-04-15] MEDS ORDERED: ONDANSETRON HCL INJ/PF 4 MG/2 ML SDV ONE (12:23)
[2019-04-15] MEDS ORDERED: VANCOMYCIN HCL 0 MG in DEXTROSE 5%-WATER 250 ML IV NR (14:00)
[2019-04-15] MEDS: NYSTATIN 500000 UNIT/5 ML UDCUP PO SCH ×3 (15:38→22:56)
[2019-04-15] MEDS: VANCOMYCIN HCL 1,250 MG in DEXTROSE 5%-WATER 250 ML IV SCH (17:20)
[2019-04-16] MEDS: LEVALBUTEROL HCL NEB 1.25 MG/3 ML AMPUL NEB SCH ×3 (00:29→16:14)
[2019-04-16] MEDS: IPRATROPIUM BROMIDE 0.02% NEB 0.5 MG/2.5 ML AMPUL NEB SCH ×3 (00:29→16:14)
--- NOTE | 2019-04-16 02:27 | Progress Note ---
Provider Note Provider Note: Mrs Sonia Monroe 1950 [id number] granted me verbal permission to look at lab work in her electronic medical record current admission which was witnessed by four of her children in the room of her , Mr Dejan Monroe in ICU [id number] on 04/15/2019 at 21:15 pm to determine if she had positive flu or bacterial cultures that would provide insight into Mr Monroe's pneumonia, since they are both admitted with pneumonia at this time. Her results are influenza A/B negative, blood Cx's are no growth thus far, and there is no sputum Cx as a reference. Though there is no insight into potentially targeting therapy for Mr Monroe at this time, I am grateful for Mrs Monroe for allowing me the opportunity to try to further help her .
[2019-04-16] MEDS: PANTOPRAZOLE SODIUM 40 MG TABLET.DR PO SCH (05:17)
[2019-04-16] MEDS: ROPINIROLE HCL 2 MG TABLET PO SCH ×3 (05:17→21:38)
[2019-04-16] MEDS: VANCOMYCIN HCL 1,250 MG in DEXTROSE 5%-WATER 250 ML IV SCH ×2 (05:18→17:23)
[2019-04-16 05:58] LABS: HEMATOCRIT 33.2 % (36.0-47.0); HEMOGLOBIN 10.3 g/dL (12.0-15.5); MEAN CORPUSCULAR HEMOGLOBIN 26.5 pg (27.0-33.4); MEAN CORPUSCULAR HGB CONC 31.2 g/dL (32.0-36.0); MEAN CORPUSCULAR VOLUME 85 fl (80-97); PLATELET COUNT 404 10^3/uL (150-450); RED CELL DISTRIBUTION WIDTH 17.3 % (11.5-14.0); WHITE BLOOD COUNT 17.5 10^3/uL (4.0-10.5)
[2019-04-16 06:25] LABS: ANION GAP 7 (5-19); BLOOD UREA NITROGEN 15 mg/dL (7-20); CALCIUM 8.4 mg/dL (8.4-10.2); CARBON DIOXIDE 34 mmol/L (22-30); CHLORIDE 97 mmol/L (98-107); GLUCOSE 108 mg/dL (75-110); POTASSIUM 3.9 mmol/L (3.6-5.0)
[2019-04-16] MEDS: ACETYLCYSTEINE 20% SOLN 800 MG/4 ML VIAL.NEB NEB SCH ×2 (08:51→19:40)
[2019-04-16] MEDS: BUDESONIDE NEB 0.5 MG/2 ML AMPUL NEB SCH ×2 (08:51→19:40)
[2019-04-16] MEDS: CEFEPIME HCL 2 GM in DEXTROSE 5%-WATER 50 ML IV SCH ×2 (09:37→21:38)
[2019-04-16] MEDS: NYSTATIN 500000 UNIT/5 ML UDCUP PO SCH ×4 (09:38→21:39)
[2019-04-16] MEDS: MORPHINE SULFATE 10 MG/ML INJ IV PRN (09:38)
[2019-04-16] MEDS: BUSPIRONE HCL 10 MG TABLET PO SCH ×2 (09:38→21:38)
[2019-04-16] MEDS: ASPIRIN 81 MG TABLET, ENT COATED PO SCH (09:39)
[2019-04-16] MEDS: POTASSIUM CHLORIDE 10 MEQ TABLET.ER PO SCH ×2 (09:39→17:22)
[2019-04-16] MEDS: ROFLUMILAST 500 MCG TABLET PO SCH (09:39)
[2019-04-16] MEDS: ATORVASTATIN CALCIUM 40 MG TABLET PO SCH (09:39)
[2019-04-16] MEDS: LEVOTHYROXINE SODIUM 0.112 MG TABLET PO SCH (09:39)
[2019-04-16] MEDS: CETIRIZINE 10 MG TABLET PO SCH (09:39)
[2019-04-16] MEDS: APIXABAN 5 MG TABLET PO SCH ×2 (09:40→17:23)
[2019-04-16] MEDS: FUROSEMIDE 20 MG TABLET PO SCH ×2 (09:40→17:22)
[2019-04-16] MEDS: CYANOCOBALAMIN (VITAMIN B-12) 1,000 MCG TABLET PO SCH (09:40)
[2019-04-16] MEDS: CITALOPRAM HYDROBROMIDE 20 MG TABLET PO SCH (09:40)
[2019-04-16] MEDS: FERROUS SULFATE 325 MG TABLET PO SCH (09:40)
[2019-04-16] MEDS: DOCUSATE SODIUM 100 MG CAPSULE PO SCH ×2 (09:40→17:23)
[2019-04-16] MEDS: MAGNESIUM OXIDE 400 MG TABLET PO SCH (09:40)
--- NOTE | 2019-04-16 13:29 | PDOC PROGRESS REPORT ---
Subjective Progress Note for:: 04/16/19 Reason For Visit: RESPIRATORY DISTRESS,PNEUMONIA,LEUKOCYTOSIS 04/16/19 Monia, respiratory distress, leukocytosis Physical Exam Vital Signs: Temp Pulse Resp BP Pulse Ox 97.7 F 80 18 132/82 H 97 04/16/19 04:17 04/16/19 08:50 04/16/19 08:50 04/16/19 04:17 04/16/19 08:50 Intake & Output 04/15/19 04/16/19 04/17/19 06:59 06:59 06:59 Intake Total 3120 1340 Output Total 1350 Balance 1770 1340 Weight 101.2 kg 103.2 kg General appearance: PRESENT: no acute distress, other - Sitting up in the chair getting a nebulizer treatment Respiratory exam: PRESENT: rales, other - Both bases Cardiovascular exam: PRESENT: RRR. ABSENT: diastolic murmur, rubs, systolic murmur Neurological exam: PRESENT: alert, awake, oriented to person, oriented to place, oriented to time, oriented to situation, CN II-XII grossly intact. ABSENT: motor sensory deficit Psychiatric exam: PRESENT: appropriate affect, normal mood. ABSENT: homicidal ideation, suicidal ideation Results Laboratory Results: 04/16/19 05:06 04/16/19 05:06 04/16/19 04/16/19 05:06 05:06 WBC 17.5 H RBC 3.90 Hgb 10.3 L Hct 33.2 L MCV 85 MCH 26.5 L MCHC 31.2 L RDW 17.3 H Plt Count 404 Sodium 138.3 Potassium 3.9 Chloride 97 L Carbon Dioxide 34 H Anion Gap 7 BUN 15 Creatinine 0.70 Est GFR ( Amer) > 60 Glucose 108 Calcium 8.4 Magnesium 2.1 04/13/19 04/14/19 04/15/19 23:00 17:02 05:14 Troponin I 0.013 NT-Pro-B Natriuret Pep 880 H 1950 H 1790 H 04/16/19 05:06 Troponin I NT-Pro-B Natriuret Pep 1080 H Impressions: Chest X-Ray 04/13/19 21:16 IMPRESSION: Patchy airspace disease right hemithorax, suspicious for pneumonia copyright 2011 [employer]- All Rights Reserved Assessment and Plan - Diagnosis (1) Acute and chronic respiratory failure with hypoxia Is this a current diagnosis for this admission?: Yes (2) Hypoxia Is this a current diagnosis for this admission?: Yes (3) Leucocytosis Qualifiers: Leukocytosis type: unspecified Qualified Code(s): D72.829 - Elevated white blood cell count, unspecified Is this a current diagnosis for this admission?: Yes (4) Obstructive sleep apnea of adult Is this a current diagnosis for this admission?: Yes (5) Pneumonia Qualifiers: Pneumonia type: due to unspecified organism Laterality: right Lung location: lower lobe of lung Qualified Code(s): J18.9 - Pneumonia, unspecified organism Is this a current diagnosis for this admission?: Yes (6) Dependence on supplemental oxygen Is this a current diagnosis for this admission?: Yes - Plan Summary Summary: Patient is admitted to medical floor where she will receive routine supportive and symptomatic cares. Patient will proceed with aggressive pulmonary toilet utilizing nebulized Xopenex, Atrovent, Pulmicort and Mucomyst. She will receive empiric antibiotic therapy utilizing cefepime 2 g IV every 12 hours. She received IV Solu-Medrol 40 mg every 6 hours x3 doses. She received supplemental oxygen utilizing BiPAP or other airway pressure support devices such as CPAP and/or nasal cannula oxygen to maintain an adequate oxygen saturation throughout her hospital course. To use morphine sulfate 2 to 4 mg IV every 2 hours as needed pain and Ativan 1 mg IV every 4 hours as needed anxiety or agitation. CBCs metabolic profiles and magnesium levels will be obtained as needed. Patient will be continued on her usual home medications for her chronic medical illnesses. She will be treated with a cardiac diet. 04/15/2019 Temp 97 6 pulse 80 blood pressure 132/76 O2 sat 99% on 2 to 3 L nasal cannula White count is gone up slightly to 26,000 Lactic acid however is come down to 1.3 BNP admission was 880 then it went up to 1950 now is at 1790 Renal functions appear normal Blood cultures are negative x24 hours Chest x-ray from admission on 04/13 shows patient's for pneumonia the right. This x-ray is compared to January 30, 2019 Patient currently on cefepime as well as Solu-Medrol. Going to add vancomycin to her regimen. Additionally patient tells me that she has been sick now for over 2 weeks 04/16/2019 Patient states she is feeling better sitting up in the chair receiving a nebulizer treatment Oxygen saturation is 99% on 2 L nasal cannula Lactic acid level has come down to 1.3 White count has come down to 17,000 Blood cultures remain negative Day 3 of cefepime and day 2 of vancomycin Patient appears to be making improvement Do a repeat 2 view chest x-ray tomorrow morning - Time Time Spent with patient: 25-34 minutes
[2019-04-16] MEDS: TEMAZEPAM 15 MG CAPSULE PO PRN (22:59)
[2019-04-17] MEDS: IPRATROPIUM BROMIDE 0.02% NEB 0.5 MG/2.5 ML AMPUL NEB SCH ×3 (00:24→16:13)
[2019-04-17] MEDS: LEVALBUTEROL HCL NEB 1.25 MG/3 ML AMPUL NEB SCH ×3 (00:24→16:13)
[2019-04-17] MEDS: PANTOPRAZOLE SODIUM 40 MG TABLET.DR PO SCH (05:54)
[2019-04-17] MEDS: VANCOMYCIN HCL 1,250 MG in DEXTROSE 5%-WATER 250 ML IV SCH ×2 (05:54→17:37)
[2019-04-17] MEDS: ROPINIROLE HCL 2 MG TABLET PO SCH ×3 (05:54→22:10)
[2019-04-17 05:57] LABS: HEMATOCRIT 32.1 % (36.0-47.0); MEAN CORPUSCULAR VOLUME 84 fl (80-97); PLATELET COUNT 353 10^3/uL (150-450); RED BLOOD COUNT 3.83 10^6/uL (3.72-5.28); RED CELL DISTRIBUTION WIDTH 17.7 % (11.5-14.0); WHITE BLOOD COUNT 17.6 10^3/uL (4.0-10.5)
[2019-04-17 06:22] LABS: ANION GAP 5 (5-19); BLOOD UREA NITROGEN 14 mg/dL (7-20); CALCIUM 8.1 mg/dL (8.4-10.2); CARBON DIOXIDE 36 mmol/L (22-30); CHLORIDE 96 mmol/L (98-107); GLUCOSE 107 mg/dL (75-110); POTASSIUM 3.4 mmol/L (3.6-5.0)
[2019-04-17 06:25] LABS: VANCOMYCIN,TROUGH 15.9 ug/mL (5.0-20.0)
[2019-04-17] MEDS: ACETYLCYSTEINE 20% SOLN 800 MG/4 ML VIAL.NEB NEB SCH ×2 (08:34→20:54)
[2019-04-17] MEDS: BUDESONIDE NEB 0.5 MG/2 ML AMPUL NEB SCH ×2 (08:34→20:54)
[2019-04-17] MEDS: POTASSIUM CHLORIDE 10 MEQ TABLET.ER PO SCH ×2 (09:12→17:33)
[2019-04-17] MEDS: BUSPIRONE HCL 10 MG TABLET PO SCH ×2 (09:12→22:09)
[2019-04-17] MEDS: ROFLUMILAST 500 MCG TABLET PO SCH (09:13)
[2019-04-17] MEDS: DOCUSATE SODIUM 100 MG CAPSULE PO SCH ×2 (09:13→17:33)
[2019-04-17] MEDS: CITALOPRAM HYDROBROMIDE 20 MG TABLET PO SCH (09:13)
[2019-04-17] MEDS: FUROSEMIDE 80 MG TABLET PO SCH ×2 (09:14→17:37)
[2019-04-17] MEDS: FERROUS SULFATE 325 MG TABLET PO SCH (09:14)
[2019-04-17] MEDS: ASPIRIN 81 MG TABLET, ENT COATED PO SCH (09:14)
[2019-04-17] MEDS: APIXABAN 5 MG TABLET PO SCH ×2 (09:14→17:33)
[2019-04-17] MEDS: ATORVASTATIN CALCIUM 40 MG TABLET PO SCH (09:14)
[2019-04-17] MEDS: CYANOCOBALAMIN (VITAMIN B-12) 1,000 MCG TABLET PO SCH (09:15)
[2019-04-17] MEDS: CETIRIZINE 10 MG TABLET PO SCH (09:15)
[2019-04-17] MEDS: MAGNESIUM OXIDE 400 MG TABLET PO SCH (09:15)
[2019-04-17] MEDS: CEFEPIME HCL 2 GM in DEXTROSE 5%-WATER 50 ML IV SCH ×2 (09:15→22:09)
[2019-04-17] MEDS: NYSTATIN 500000 UNIT/5 ML UDCUP PO SCH ×4 (09:15→22:11)
--- NOTE | 2019-04-17 10:46 | RADIOLOGY REPORT (SQ) ---
EXAM DESCRIPTION: CHEST 2 VIEWS COMPLETED DATE/TIME: 04/17/2019 10:22 am REASON FOR STUDY: Pneumonia follow-up COMPARISON: AP view of the chest from 04/13/2019. EXAM PARAMETERS: NUMBER OF VIEWS: Two views. TECHNIQUE: PA and lateral views of the chest were obtained.. RADIATION DOSE: NA LIMITATIONS: none FINDINGS: LUNGS AND PLEURA: The increased AP diameter of the thorax on the lateral view suggestive o f COPD. The patchy opacities in the mid lateral aspect of the right hemithorax have improved. The i nterstitium is prominent and the costophrenic sulci are blunted. There is no pneumothorax. MEDIASTINUM AND HILAR STRUCTURES: No mediastinal or hilar contour abnormality. HEART AND VASCULAR STRUCTURES: Stable cardiac silhouette. BONES: No acute findings. HARDWARE: Intact left subclavian vein approach single lead transvenous pacemaker. OTHER: No other finding. IMPRESSION: The patchy opacities in the mid lateral aspect of the right hemithorax have improved. T he prominence of the interstitium and the bilateral pleural effusions (left greater than right) are u nchanged. Clinical correlation for signs and symptoms of volume overload is recommended. TECHNICAL DOCUMENTATION: JOB ID: [id number] 2010 [employer]- All Rights Reserved Reading location - IP/workstation name: [email or web address]
--- NOTE | 2019-04-17 13:52 | PDOC PROGRESS REPORT ---
Subjective Progress Note for:: 04/17/19 Reason For Visit: RESPIRATORY DISTRESS,PNEUMONIA,LEUKOCYTOSIS 04/17/2019 Hypoxia, shortness of breath, pneumonia, COPD exacerbation, hypertension, chronic atrial fib Physical Exam Vital Signs: Temp Pulse Resp BP Pulse Ox 97.7 F 80 17 120/71 99 04/17/19 08:36 04/17/19 08:36 04/17/19 08:36 04/17/19 08:36 04/17/19 08:36 Intake & Output 04/16/19 04/17/19 04/18/19 06:59 06:59 06:59 Intake Total 1340 1675 300 Balance 1340 1675 300 Weight 103.2 kg 103 kg General appearance: PRESENT: no acute distress Respiratory exam: PRESENT: rhonchi Cardiovascular exam: PRESENT: RRR. ABSENT: diastolic murmur, rubs, systolic murmur Neurological exam: PRESENT: alert, awake, oriented to person, oriented to place, oriented to time, oriented to situation, CN II-XII grossly intact. ABSENT: motor sensory deficit Psychiatric exam: PRESENT: appropriate affect, normal mood. ABSENT: homicidal ideation, suicidal ideation Results Laboratory Results: 04/17/19 05:34 04/17/19 05:34 04/17/19 04/17/19 05:34 05:34 WBC 17.6 H RBC 3.83 Hgb 10.0 L Hct 32.1 L MCV 84 MCH 26.0 L MCHC 31.0 L RDW 17.7 H Plt Count 353 Sodium 137.4 Potassium 3.4 L Chloride 96 L Carbon Dioxide 36 H Anion Gap 5 BUN 14 Creatinine 0.53 Est GFR ( Amer) > 60 Glucose 107 Calcium 8.1 L Magnesium 2.0 04/13/19 04/14/19 04/15/19 23:00 17:02 05:14 Troponin I 0.013 NT-Pro-B Natriuret Pep 880 H 1950 H 1790 H 04/16/19 05:06 Troponin I NT-Pro-B Natriuret Pep 1080 H Impressions: Chest X-Ray 04/17/19 07:00 IMPRESSION: The patchy opacities in the mid lateral aspect of the right hem ithorax have improved. The prominence of the interstitium and the bilateral pleural effusions (left greater than right) are unchanged. Clinical correlation for signs and symptoms of volume overload is recommended. Assessment and Plan - Diagnosis (1) Acute and chronic respiratory failure with hypoxia Is this a current diagnosis for this admission?: Yes (2) Hypoxia Is this a current diagnosis for this admission?: Yes (3) Leucocytosis Qualifiers: Leukocytosis type: unspecified Qualified Code(s): D72.829 - Elevated white blood cell count, unspecified Is this a current diagnosis for this admission?: Yes (4) Obstructive sleep apnea of adult Is this a current diagnosis for this admission?: Yes (5) Pneumonia Qualifiers: Pneumonia type: due to unspecified organism Laterality: right Lung location: lower lobe of lung Qualified Code(s): J18.9 - Pneumonia, unspecified organism Is this a current diagnosis for this admission?: Yes (6) Dependence on supplemental oxygen Is this a current diagnosis for this admission?: Yes - Plan Summary Summary: Patient is admitted to medical floor where she will receive routine supportive and symptomatic cares. Patient will proceed with aggressive pulmonary toilet utilizing nebulized Xopenex, Atrovent, Pulmicort and Mucomyst. She will receive empiric antibiotic therapy utilizing cefepime 2 g IV every 12 hours. She received IV Solu-Medrol 40 mg every 6 hours x3 doses. She received supplemental oxygen utilizing BiPAP or other airway pressure support devices such as CPAP and/or nasal cannula oxygen to maintain an adequate oxygen saturation throughout her hospital course. To use morphine sulfate 2 to 4 mg IV every 2 hours as needed pain and Ativan 1 mg IV every 4 hours as needed anxiety or agitation. CBCs metabolic profiles and magnesium levels will be obtained as needed. Patient will be continued on her usual home medications for her chronic medical illnesses. She will be treated with a cardiac diet. 04/15/2019 Temp 97 6 pulse 80 blood pressure 132/76 O2 sat 99% on 2 to 3 L nasal cannula White count is gone up slightly to 26,000 Lactic acid however is come down to 1.3 BNP admission was 880 then it went up to 1950 now is at 1790 Renal functions appear normal Blood cultures are negative x24 hours Chest x-ray from admission on 04/13 shows patient's for pneumonia the right. This x-ray is compared to January 30, 2019 Patient currently on cefepime as well as Solu-Medrol. Going to add vancomycin to her regimen. Additionally patient tells me that she has been sick now for over 2 weeks 04/16/2019 Patient states she is feeling better sitting up in the chair receiving a nebulizer treatment Oxygen saturation is 99% on 2 L nasal cannula Lactic acid level has come down to 1.3 White count has come down to 17,000 Blood cultures remain negative Day 3 of cefepime and day 2 of vancomycin Patient appears to be making improvement Do a repeat 2 view chest x-ray tomorrow morning EKG does show atrial fib patient is currently on Eliquis and has a history of atrial fib 04/17/2019 Patient is sitting up in bed with nasal cannula oxygen Oxygen saturation is actually 98% on 3 L nasal cannula. respirations 16 and unlabored She is afebrile, her blood pressure is 120/71 WBC stable at 17.6 Electrolytes show the potassium slightly low at 3.4. Patient is on potassium 20 mEq twice daily BNP is down to 1080. Is getting Lasix 80 mg twice daily p.o. which is what she takes at home but at home she is on as needed CXR today shows improvement of her pneumonia #1 pneumonia #2 COPD exacerbation, #3 is CHF #4 his atrial fib controlled Patient may require either an extra dose of Lasix or possibly switching to Demadex - Time Time Spent with patient: 25-34 minutes
[2019-04-17] MEDS: LEVOTHYROXINE SODIUM 0.112 MG TABLET PO SCH (14:02)
--- NOTE | 2019-04-17 15:59 | CDI QUERY ---
CDI Query CDI Review: Dear Provider: To better reflect your patients severity of illness, morbidity, and resource utilization Please specify and document in the Progress Notes and Discharge Summary if you are monitoring / treating / evaluating any of the following conditions: Query Clinical indicators Please specify the type and acuity of the CHF: Systolic Diastolic Combined systolic and diastolic Other heart failure (please specify) Unable to determine Acute Chronic Acute on chronic (decompensated; exacerbated) Unable to determine Please clarify and document if the pneumonia can be further specified: GNR pneumonia GPC pneumonia Aspiration pneumonia Unable to determine Other Per Progress Note 04/17/2019: #1 pneumonia #2 COPD exacerbation, #3 is CHF #4 his atrial fib controlled Patient may require either an extra dose of Lasix or possibly switching to Demadex NT-Pro-B Natriuret Pep 880 H-> 1950 H ->1790 H Chest X-Ray 04/17/19 07:00 IMPRESSION: The patchy opacities in the mid lateral aspect of the right hemithorax have improved. The prominence of the interstitium and the bilateral pleural effusions (left greater than right) are unchanged. Clinical correlation for signs and symptoms of volume overload is recommended. Is getting Lasix 80 mg twice daily p.o. which is what she takes at home but at home she is on as needed Day 3 of cefepime and day 2 of vancomycin The terms probable, suspected, likely, possible or still to be ruled out may be used if you are unable to determine the exact nature of a condition. Thank you, Clinical Documentation [facility] KIMBERLY Bhardwaj RN, BSN RN Office [phone] Office [phone]
[2019-04-17] MEDS: ACETAMINOPHEN 325 MG TABLET PO PRN ×2 (17:33→22:10)
[2019-04-18] MEDS: LEVALBUTEROL HCL NEB 1.25 MG/3 ML AMPUL NEB SCH ×4 (00:05→23:15)
[2019-04-18] MEDS: IPRATROPIUM BROMIDE 0.02% NEB 0.5 MG/2.5 ML AMPUL NEB SCH ×4 (00:05→23:15)
[2019-04-18] MEDS: TEMAZEPAM 15 MG CAPSULE PO PRN ×2 (00:22→22:55)
[2019-04-18] MEDS: ROPINIROLE HCL 2 MG TABLET PO SCH ×3 (06:36→21:16)
[2019-04-18] MEDS: LEVOTHYROXINE SODIUM 0.112 MG TABLET PO SCH (06:36)
[2019-04-18] MEDS: PANTOPRAZOLE SODIUM 40 MG TABLET.DR PO SCH (06:36)
[2019-04-18] MEDS: VANCOMYCIN HCL 1,250 MG in DEXTROSE 5%-WATER 250 ML IV SCH ×2 (06:37→17:44)
[2019-04-18] MEDS: BUDESONIDE NEB 0.5 MG/2 ML AMPUL NEB SCH ×2 (08:01→19:46)
[2019-04-18] MEDS: ACETYLCYSTEINE 20% SOLN 800 MG/4 ML VIAL.NEB NEB SCH ×2 (08:02→20:05)
[2019-04-18] MEDS: POTASSIUM CHLORIDE 10 MEQ TABLET.ER PO SCH ×2 (08:35→17:44)
[2019-04-18] MEDS: ASPIRIN 81 MG TABLET, ENT COATED PO SCH (10:07)
[2019-04-18] MEDS: CYANOCOBALAMIN (VITAMIN B-12) 1,000 MCG TABLET PO SCH (10:07)
[2019-04-18] MEDS: FUROSEMIDE 80 MG TABLET PO SCH ×2 (10:07→17:43)
[2019-04-18] MEDS: CITALOPRAM HYDROBROMIDE 20 MG TABLET PO SCH (10:07)
[2019-04-18] MEDS: DOCUSATE SODIUM 100 MG CAPSULE PO SCH ×2 (10:07→17:44)
[2019-04-18] MEDS: FERROUS SULFATE 325 MG TABLET PO SCH (10:07)
[2019-04-18] MEDS: ATORVASTATIN CALCIUM 40 MG TABLET PO SCH (10:07)
[2019-04-18] MEDS: MAGNESIUM OXIDE 400 MG TABLET PO SCH (10:08)
[2019-04-18] MEDS: BUSPIRONE HCL 10 MG TABLET PO SCH ×2 (10:08→21:16)
[2019-04-18] MEDS: CETIRIZINE 10 MG TABLET PO SCH (10:08)
[2019-04-18] MEDS: ROFLUMILAST 500 MCG TABLET PO SCH (10:08)
[2019-04-18] MEDS: CEFEPIME HCL 2 GM in DEXTROSE 5%-WATER 50 ML IV SCH ×2 (10:08→21:17)
[2019-04-18] MEDS: APIXABAN 5 MG TABLET PO SCH ×2 (10:08→17:44)
[2019-04-18] MEDS: NYSTATIN 500000 UNIT/5 ML UDCUP PO SCH ×5 (10:09→21:10)
[2019-04-18] MEDS: ACETAMINOPHEN 325 MG TABLET PO PRN (13:21)
--- NOTE | 2019-04-18 13:34 | PDOC PROGRESS REPORT ---
Subjective Progress Note for:: 04/18/19 Subjective:: LEVI GIBBONS is a 69 year old female presented emergency room with a one-week history of dyspnea. Patient admits that she has experienced gradually worsening dyspnea over the last week becoming extremely severe this evening prior to calling EMS. Her dyspnea has been accompanied by wheezing and is worsened with exertion. She denies other associated or accompanying signs and symptoms. She admits numerous prior similar episodes with exacerbations of her COPD. She is on chronic home O2 at 2 L/min via nasal cannula and on CPAP at bedtime for obstructive sleep apnea. She has not identified any additional aggravating or ameliorating factors for her dyspnea. In the emergency room patient was found to have acute on chronic respiratory failure with hypoxia requiring BiPAP to alleviate her dyspnea and extreme respiratory failure/respiratory distress symptoms. She was also noted to have an elevated white count which is actually on the low end of her recent baseline range. Chest x-ray reported airspace disease however on evaluation of previous chest x-rays I have noted that the same pattern exists on each x-ray in exactly the same area and feels this most likely represents chronic change rather than acute. Patient was subsequently admitted to the hospital for further evaluation treatment. 04/18/2019. No acute events overnight. Patient comfortably sitting in bed in mild distress. Accompanied by her family. Stating that she is feeling better h owever she does not feel like she is back to her baseline. She still gets very short of breath when ambulates or tries to go to the restroom. Denies any chest pain, nausea, vomiting, diarrhea, constipation or any urinary symptoms. Reason For Visit: RESPIRATORY DISTRESS,PNEUMONIA,LEUKOCYTOSIS Physical Exam Vital Signs: Temp Pulse Resp BP Pulse Ox 98.0 F 80 18 125/77 99 04/18/19 12:02 04/18/19 12:02 04/18/19 12:02 04/18/19 12:02 04/18/19 12:02 Intake & Output 04/17/19 04/18/19 04/19/19 06:59 06:59 06:59 Intake Total 1675 1320 250 Balance 1675 1320 250 Weight 103 kg 102 kg General appearance: PRESENT: no acute distress, well-developed, well-nourished Head exam: PRESENT: atraumatic, normocephalic Respiratory exam: PRESENT: clear to auscultation armand. ABSENT: rales, rhonchi, wheezes Cardiovascular exam: PRESENT: RRR. ABSENT: diastolic murmur, rubs, systolic murmur GI/Abdominal exam: PRESENT: normal bowel sounds, soft. ABSENT: distended, guarding, mass, organolmegaly, rebound, tenderness Neurological exam: PRESENT: alert, awake, oriented to person, oriented to place, oriented to time, oriented to situation, CN II-XII grossly intact. ABSENT: motor sensory deficit Results Laboratory Results: 04/17/19 05:34 04/17/19 05:34 04/13/19 04/14/19 04/15/19 23:00 17:02 05:14 Troponin I 0.013 NT-Pro-B Natriuret Pep 880 H 1950 H 1790 H 04/16/19 05:06 Troponin I NT-Pro-B Natriuret Pep 1080 H Impressions: Chest X-Ray 04/17/19 07:00 IMPRESSION: The patchy opacities in the mid lateral aspect of the right hem ithorax have improved. The prominence of the interstitium and the bilateral pleural effusions (left greater than right) are unchanged. Clinical correlation for signs and symptoms of volume overload is recommended. Assessment and Plan - Diagnosis (1) Acute and chronic respiratory failure with hypoxia Is this a current diagnosis for this admission?: Yes Plan: Improving. SPO2 WNL on 2-3 L. Due to acute COPD exacerbation in the setting of pneumonia and acute CHF exacerbation. Continue duo nebs, BiPAP, supplemental oxygen, broad-spectrum empiric IV antibiotics, pulmonary toileting, incentive spirometry, flutter valve. (2) Chronic atrial fibrillation Is this a current diagnosis for this admission?: Yes Plan: Rate controlled. Anticoagulated. Continue current meds. Outpatient PCP and cardiology follow-up. (3) Acute exacerbation of CHF (congestive heart failure) Qualifiers: Heart failure type: unspecified Qualified Code(s): I50.9 - Heart failure, unspecified Is this a current diagnosis for this admission?: Yes Plan: Denies any history of CAD. Presented with proBNP 1950. Troponins 0.013. 2D echo 12/28/2016. LVEF 65%. RSVP 28 mmHg. Likely due to acute hypoxic respiratory failure setting of chronic A. fib. Appears euvolemic. Continue cardiac diet. Diuretics. Outpatient PCP follow-up. (4) COPD exacerbation Is this a current diagnosis for this admission?: Yes Plan: History of COPD oxygen dependent 2 L/min at baseline. Plan as per #1. (5) Hypothyroidism Qualifiers: Hypothyroidism type: unspecified Qualified Code(s): E03.9 - Hypothyroidism, unspecified Is this a current diagnosis for this admission?: Yes Plan: Resume home meds. Outpatient PCP follow-up. (6) Pneumonia Qualifiers: Pneumonia type: due to unspecified organism Laterality: right Lung location: lower lobe of lung Qualified Code(s): J18.9 - Pneumonia, unspecified organism Is this a current diagnosis for this admission?: Yes Plan: Improving. Afebrile. WBC 17.6. Blood cultures negative. No sputum culture available. Chest x-ray on admission patchy airspace disease in the right hemithorax possibly pneumonia. Likely due to gram-positive cocci's including Streptococcus pneumonia. (7) Leucocytosis Qualifiers: Leukocytosis type: unspecified Qualified Code(s): D72.829 - Elevated white blood cell count, unspecified Is this a current diagnosis for this admission?: Yes Plan: Improving. WBC 70,000. History of chronic leukocytosis. As per family and patient she has had leukocytosis chronically and has been evaluated by hematology outpatient. Patient denies having any history of malignancy. Baseline WBC is 10-39,000 since 2012.
[2019-04-19] MEDS: ACETAMINOPHEN 325 MG TABLET PO PRN (04:32)
[2019-04-19 04:59] LABS: HEMATOCRIT 31.4 % (36.0-47.0); HEMOGLOBIN 9.9 g/dL (12.0-15.5); MEAN CORPUSCULAR HEMOGLOBIN 26.1 pg (27.0-33.4); MEAN CORPUSCULAR HGB CONC 31.4 g/dL (32.0-36.0); MEAN CORPUSCULAR VOLUME 83 fl (80-97); PLATELET COUNT 368 10^3/uL (150-450); RED BLOOD COUNT 3.78 10^6/uL (3.72-5.28); RED CELL DISTRIBUTION WIDTH 17.2 % (11.5-14.0); WHITE BLOOD COUNT 17.7 10^3/uL (4.0-10.5)
[2019-04-19 05:22] LABS: BLOOD UREA NITROGEN 14 mg/dL (7-20); CALCIUM 8.4 mg/dL (8.4-10.2); CHLORIDE 92 mmol/L (98-107); GLUCOSE 142 mg/dL (75-110); POTASSIUM 3.5 mmol/L (3.6-5.0)
[2019-04-19 05:24] LABS: ANION GAP 6 (5-19)
[2019-04-19] MEDS: ROPINIROLE HCL 2 MG TABLET PO SCH ×3 (05:24→22:06)
[2019-04-19] MEDS: VANCOMYCIN HCL 1,250 MG in DEXTROSE 5%-WATER 250 ML IV SCH (05:24)
[2019-04-19] MEDS: LEVOTHYROXINE SODIUM 0.112 MG TABLET PO SCH (05:24)
[2019-04-19] MEDS: PANTOPRAZOLE SODIUM 40 MG TABLET.DR PO SCH (05:24)
[2019-04-19 05:34] LABS: CARBON DIOXIDE 40 mmol/L (22-30)
[2019-04-19] MEDS: ACETYLCYSTEINE 20% SOLN 800 MG/4 ML VIAL.NEB NEB SCH ×2 (08:45→21:05)
[2019-04-19] MEDS: BUDESONIDE NEB 0.5 MG/2 ML AMPUL NEB SCH ×2 (08:45→21:05)
[2019-04-19] MEDS: IPRATROPIUM BROMIDE 0.02% NEB 0.5 MG/2.5 ML AMPUL NEB SCH ×2 (08:45→16:47)
[2019-04-19] MEDS: LEVALBUTEROL HCL NEB 0.63 MG/3 ML AMPUL NEB PRN (08:46)
[2019-04-19] MEDS: LEVALBUTEROL HCL NEB 1.25 MG/3 ML AMPUL NEB SCH ×2 (09:14→16:48)
[2019-04-19] MEDS ORDERED: FUROSEMIDE 40 MG TABLET PO SCH (10:00)
[2019-04-19] MEDS ORDERED: FUROSEMIDE 80 MG TABLET PO SCH (10:00)
[2019-04-19] MEDS: CEFEPIME HCL 2 GM in DEXTROSE 5%-WATER 50 ML IV SCH ×2 (10:39→22:06)
[2019-04-19] MEDS: ATORVASTATIN CALCIUM 40 MG TABLET PO SCH (10:39)
[2019-04-19] MEDS: MAGNESIUM OXIDE 400 MG TABLET PO SCH (10:40)
[2019-04-19] MEDS: APIXABAN 5 MG TABLET PO SCH ×2 (10:40→17:07)
[2019-04-19] MEDS: FERROUS SULFATE 325 MG TABLET PO SCH (10:40)
[2019-04-19] MEDS: DOCUSATE SODIUM 100 MG CAPSULE PO SCH ×2 (10:40→17:07)
[2019-04-19] MEDS: POTASSIUM CHLORIDE 10 MEQ TABLET.ER PO SCH ×2 (10:40→17:07)
[2019-04-19] MEDS: CITALOPRAM HYDROBROMIDE 20 MG TABLET PO SCH (10:40)
[2019-04-19] MEDS: BUSPIRONE HCL 10 MG TABLET PO SCH ×2 (10:40→22:06)
[2019-04-19] MEDS: ASPIRIN 81 MG TABLET, ENT COATED PO SCH (10:41)
[2019-04-19] MEDS: ROFLUMILAST 500 MCG TABLET PO SCH (10:41)
[2019-04-19] MEDS: CETIRIZINE 10 MG TABLET PO SCH (10:41)
[2019-04-19] MEDS: CYANOCOBALAMIN (VITAMIN B-12) 1,000 MCG TABLET PO SCH (10:41)
[2019-04-19] MEDS: NYSTATIN 500000 UNIT/5 ML UDCUP PO SCH ×3 (10:43→17:07)
--- NOTE | 2019-04-19 12:33 | PDOC PROGRESS REPORT ---
Subjective Progress Note for:: 04/19/19 Subjective:: LEVI GIBBONS is a 69 year old female presented emergency room with a one-week history of dyspnea. Patient admits that she has experienced gradually worsening dyspnea over the last week becoming extremely severe this evening prior to calling EMS. Her dyspnea has been accompanied by wheezing and is worsened with exertion. She denies other associated or accompanying signs and symptoms. She admits numerous prior similar episodes with exacerbations of her COPD. She is on chronic home O2 at 2 L/min via nasal cannula and on CPAP at bedtime for obstructive sleep apnea. She has not identified any additional aggravating or ameliorating factors for her dyspnea. In the emergency room patient was found to have acute on chronic respiratory failure with hypoxia requiring BiPAP to alleviate her dyspnea and extreme respiratory failure/respiratory distress symptoms. She was also noted to have an elevated white count which is actually on the low end of her recent baseline range. Chest x-ray reported airspace disease however on evaluation of previous chest x-rays I have noted that the same pattern exists on each x-ray in exactly the same area and feels this most likely represents chronic change rather than acute. Patient was subsequently admitted to the hospital for further evaluation treatment. 04/18/2019. No acute events overnight. Patient comfortably sitting in bed in mild distress. Accompanied by her family. Stating that she is feeling better h owever she does not feel like she is back to her baseline. She still gets very short of breath when ambulates or tries to go to the restroom. Denies any chest pain, nausea, vomiting, diarrhea, constipation or any urinary symptoms. 04/19/2019. No acute events overnight. Patient is stating that she is feeling worse than yesterday, noted to be in mild respiratory distress, still on supplemental O2, complaining of getting fatigued easily, denies any chest pain, fever, nausea, vomiting, diarrhea, constipation or any urinary symptoms. Reason For Visit: RESPIRATORY DISTRESS,PNEUMONIA,LEUKOCYTOSIS Physical Exam Vital Signs: Temp Pulse Resp BP Pulse Ox 98.4 F 99 24 H 113/68 99 04/19/19 08:08 04/19/19 08:46 04/19/19 08:46 04/19/19 08:08 04/19/19 08:46 Intake & Output 04/18/19 04/19/19 04/20/19 06:59 06:59 06:59 Intake Total 1320 1320 300 Balance 1320 1320 300 Weight 102 kg 102.3 kg General appearance: PRESENT: mild distress Head exam: PRESENT: atraumatic, normocephalic Respiratory exam: PRESENT: accessory muscle use, prolonged expiratory phas, wheezes. ABSENT: rales, rhonchi Cardiovascular exam: PRESENT: RRR. ABSENT: diastolic murmur, rubs, systolic m urmur Neurological exam: PRESENT: alert, awake, oriented to person, oriented to place, oriented to time, oriented to situation, CN II-XII grossly intact. ABSENT: motor sensory deficit Results Laboratory Results: 04/19/19 03:49 04/19/19 03:49 04/19/19 04/19/19 03:49 03:49 WBC 17.7 H RBC 3.78 Hgb 9.9 L Hct 31.4 L MCV 83 MCH 26.1 L MCHC 31.4 L RDW 17.2 H Plt Count 368 Sodium 138.2 Potassium 3.5 L Chloride 92 L Carbon Dioxide 40 H* Anion Gap 6 BUN 14 Creatinine 0.58 Est GFR ( Amer) > 60 Glucose 142 H Calcium 8.4 04/14/19 00:11 Blood Blood Culture - Final NO GROWTH IN 5 DAYS 04/13/19 23:00 Blood Blood Culture - Final NO GROWTH IN 5 DAYS 04/13/19 04/14/19 04/15/19 23:00 17:02 05:14 Troponin I 0.013 NT-Pro-B Natriuret Pep 880 H 1950 H 1790 H 04/16/19 05:06 Troponin I NT-Pro-B Natriuret Pep 1080 H Impressions: Chest X-Ray 04/17/19 07:00 IMPRESSION: The patchy opacities in the mid lateral aspect of the right hemithorax have improved. The prominence of the interstitium and the bilateral pleural effusions (left greater than right) are unchanged. Clinical correlation for signs and symptoms of volume overload is recommended. Assessment and Plan - Diagnosis (1) Acute and chronic respiratory failure with hypoxia Is this a current diagnosis for this admission?: Yes Plan: Improving. SPO2 WNL on 2-3 L. Due to acute COPD exacerbation in the setting of pneumonia and acute CHF exacerbation. Continue duo nebs, BiPAP, supplemental oxygen, broad-spectrum empiric IV ant ibiotics, pulmonary toileting, incentive spirometry, flutter valve. (2) Chronic atrial fibrillation Is this a current diagnosis for this admission?: Yes Plan: Rate controlled. Anticoagulated. Continue current meds. Outpatient PCP and cardiology follow-up. (3) Acute exacerbation of CHF (congestive heart failure) Qualifiers: Heart failure type: unspecified Qualified Code(s): I50.9 - Heart failure, unspecified Is this a current diagnosis for this admission?: Yes Plan: Denies any history of CAD. Presented with proBNP 1950. Troponins 0.013. 2D echo 12/28/2016. LVEF 65%. RSVP 28 mmHg. Likely due to acute hypoxic respiratory failure setting of chronic A. fib. Appears euvolemic. Continue cardiac diet. Diuretics. Outpatient PCP follow-up. (4) COPD exacerbation Is this a current diagnosis for this admission?: Yes Plan: History of COPD oxygen dependent 2 L/min at baseline. Plan as per #1. (5) Hypothyroidism Qualifiers: Hypothyroidism type: unspecified Qualified Code(s): E03.9 - Hypothyroidism, unspecified Is this a current diagnosis for this admission?: Yes Plan: Resume home meds. Outpatient PCP follow-up. (6) Pneumonia Qualifiers: Pneumonia type: due to unspecified organism Laterality: right Lung l ocation: lower lobe of lung Qualified Code(s): J18.9 - Pneumonia, unspecified organism Is this a current diagnosis for this admission?: Yes Plan: Improving. Afebrile. WBC 17.6. Blood cultures negative. No sputum culture available. Chest x-ray on admission patchy airspace disease in the right hemithorax possibly pneumonia. Likely due to gram-positive cocci's including Streptococcus pneumonia. (7) Leucocytosis Qualifiers: Leukocytosis type: unspecified Qualified Code(s): D72.829 - Elevated white blood cell count, unspecified Is this a current diagnosis for this admission?: Yes
[2019-04-19] MEDS: METHYLPREDNISOLONE INJ 125 MG/2 ML SDV IV SCH ×2 (13:31→22:05)
[2019-04-19] MEDS ORDERED: METHYLPREDNISOLONE INJ 40 MG/1 ML SDV IV SCH (14:00)
[2019-04-19] MEDS ORDERED: FLUCONAZOLE 100 MG TABLET PO ONE (19:30)
[2019-04-19] MEDS: TEMAZEPAM 15 MG CAPSULE PO PRN (23:26)
[2019-04-20] MEDS: IPRATROPIUM BROMIDE 0.02% NEB 0.5 MG/2.5 ML AMPUL NEB SCH ×4 (00:45→23:51)
[2019-04-20] MEDS: LEVALBUTEROL HCL NEB 1.25 MG/3 ML AMPUL NEB SCH ×4 (00:45→23:51)
[2019-04-20] MEDS: ACETAMINOPHEN 325 MG TABLET PO PRN (03:34)
[2019-04-20] MEDS: METHYLPREDNISOLONE INJ 125 MG/2 ML SDV IV SCH ×3 (05:36→22:27)
[2019-04-20] MEDS: LEVOTHYROXINE SODIUM 0.112 MG TABLET PO SCH (05:36)
[2019-04-20] MEDS: ROPINIROLE HCL 2 MG TABLET PO SCH ×3 (05:36→22:26)
[2019-04-20] MEDS: PANTOPRAZOLE SODIUM 40 MG TABLET.DR PO SCH (05:38)
[2019-04-20 06:31] LABS: HEMATOCRIT 30.8 % (36.0-47.0); HEMOGLOBIN 9.9 g/dL (12.0-15.5); MEAN CORPUSCULAR HEMOGLOBIN 26.7 pg (27.0-33.4); MEAN CORPUSCULAR VOLUME 83 fl (80-97); PLATELET COUNT 390 10^3/uL (150-450); RED CELL DISTRIBUTION WIDTH 17.4 % (11.5-14.0); WHITE BLOOD COUNT 19.2 10^3/uL (4.0-10.5)
[2019-04-20 06:47] LABS: ABSOLUTE LYMPHOCYTES# (MANUAL) 0.2 10^3/uL (0.5-4.7); ABSOLUTE MONOCYTES # (MANUAL) 0.2 10^3/uL (0.1-1.4); BASOPHILS % (MANUAL) 0 % (0-2); EOSINOPHILS % (MANUAL) 0 % (0-6); LYMPHOCYTES % (MANUAL) 1 % (13-45); MONOCYTES % (MANUAL) 1 % (3-13); SEGMENTED NEUTROPHILS % (MAN) 98 % (42-78); TOTAL CELLS COUNTED 100
[2019-04-20 06:48] LABS: ANISOCYTOSIS 1+; PLATELET COMMENT ADEQUATE
[2019-04-20 06:53] LABS: ANION GAP 9 (5-19); BLOOD UREA NITROGEN 17 mg/dL (7-20); CALCIUM 8.8 mg/dL (8.4-10.2); CARBON DIOXIDE 35 mmol/L (22-30); CHLORIDE 93 mmol/L (98-107); GLUCOSE 249 mg/dL (75-110); POTASSIUM 4.6 mmol/L (3.6-5.0)
[2019-04-20] MEDS: BUDESONIDE NEB 0.5 MG/2 ML AMPUL NEB SCH ×2 (08:31→19:44)
[2019-04-20] MEDS: ACETYLCYSTEINE 20% SOLN 800 MG/4 ML VIAL.NEB NEB SCH ×2 (08:31→19:44)
[2019-04-20] MEDS ORDERED: FUROSEMIDE 40 MG TABLET PO SCH (10:00)
[2019-04-20] MEDS: FERROUS SULFATE 325 MG TABLET PO SCH (10:47)
[2019-04-20] MEDS: BUSPIRONE HCL 10 MG TABLET PO SCH ×2 (10:48→22:27)
[2019-04-20] MEDS: ROFLUMILAST 500 MCG TABLET PO SCH (10:48)
[2019-04-20] MEDS: CYANOCOBALAMIN (VITAMIN B-12) 1,000 MCG TABLET PO SCH (10:48)
[2019-04-20] MEDS: APIXABAN 5 MG TABLET PO SCH ×2 (10:48→17:24)
[2019-04-20] MEDS: CITALOPRAM HYDROBROMIDE 20 MG TABLET PO SCH (10:48)
[2019-04-20] MEDS: ATORVASTATIN CALCIUM 40 MG TABLET PO SCH (10:48)
[2019-04-20] MEDS: DOCUSATE SODIUM 100 MG CAPSULE PO SCH ×2 (10:48→17:24)
[2019-04-20] MEDS: ASPIRIN 81 MG TABLET, ENT COATED PO SCH (10:48)
[2019-04-20] MEDS: MAGNESIUM OXIDE 400 MG TABLET PO SCH (10:48)
[2019-04-20] MEDS: CETIRIZINE 10 MG TABLET PO SCH (10:48)
[2019-04-20] MEDS: POTASSIUM CHLORIDE 10 MEQ TABLET.ER PO SCH (10:49)
[2019-04-20] MEDS: CEFEPIME HCL 2 GM in DEXTROSE 5%-WATER 50 ML IV SCH ×2 (10:56→22:26)
--- NOTE | 2019-04-20 10:57 | PDOC PROGRESS REPORT ---
Subjective Progress Note for:: 04/20/19 Subjective:: LEVI GIBBONS is a 69 year old female presented emergency room with a one-week history of dyspnea. Patient admits that she has experienced gradually worsening dyspnea over the last week becoming extremely severe this evening prior to calling EMS. Her dyspnea has been accompanied by wheezing and is worsened with exertion. She denies other associated or accompanying signs and symptoms. She admits numerous prior similar episodes with exacerbations of her COPD. She is on chronic home O2 at 2 L/min via nasal cannula and on CPAP at bedtime for obstructive sleep apnea. She has not identified any additional aggravating or ameliorating factors for her dyspnea. In the emergency room patient was found to have acute on chronic respiratory failure with hypoxia requiring BiPAP to alleviate her dyspnea and extreme respiratory failure/respiratory distress symptoms. She was also noted to have an elevated white count which is actually on the low end of her recent baseline range. Chest x-ray reported airspace disease however on evaluation of previous chest x-rays I have noted that the same pattern exists on each x-ray in exactly the same area and feels this most likely represents chronic change rather than acute. Patient was subsequently admitted to the hospital for further evaluation treatment. 04/18/2019. No acute events overnight. Patient comfortably sitting in bed in mild distress. Accompanied by her family. Stating that she is feeling better h owever she does not feel like she is back to her baseline. She still gets very short of breath when ambulates or tries to go to the restroom. Denies any chest pain, nausea, vomiting, diarrhea, constipation or any urinary symptoms. 04/19/2019. No acute events overnight. Patient is stating that she is feeling worse than yesterday, noted to be in mild respiratory distress, still on supplemental O2, complaining of getting fatigued easily, denies any chest pain, fever, nausea, vomiting, diarrhea, constipation or any urinary symptoms. 04/20/2019. No acute events overnight. Patient complaining of headache otherwise denies any fever, chills, nausea, vomiting, diarrhea, constipation or any urinary symptoms. Patient is still on 2 L nasal cannula with significant wheezing on physical examination. Continue to slightly cooperate with physical examination. P.o. tolerant. Reason For Visit: RESPIRATORY DISTRESS,PNEUMONIA,LEUKOCYTOSIS Physical Exam Vital Signs: Temp Pulse Resp BP Pulse Ox 97.6 F 80 33 H 125/68 99 02/27/20 03:31 04/20/19 08:31 04/20/19 08:31 04/20/19 03:31 04/20/19 08:31 Intake & Output 04/19/19 04/20/19 04/21/19 06:59 06:59 06:59 Intake Total 1320 1390 Balance 1320 1390 Weight 102.3 kg 102.9 kg General appearance: PRESENT: obese Head exam: PRESENT: atraumatic, normocephalic Respiratory exam: PRESENT: decreased breath sounds, prolonged expiratory phas. ABSENT: rales, rhonchi, wheezes Cardiovascular exam: PRESENT: RRR. ABSENT: diastolic murmur, rubs, systolic murmur GI/Abdominal exam: PRESENT: normal bowel sounds, soft. ABSENT: distended, guarding, mass, organolmegaly, rebound, tenderness Neurological exam: PRESENT: alert, awake, oriented to person, oriented to place, oriented to time, oriented to situation, CN II-XII grossly intact. ABSENT: motor sensory deficit Results Laboratory Results: 04/20/19 05:22 04/20/19 05:22 04/20/19 04/20/19 05:22 05:22 WBC 19.2 H RBC 3.70 L Hgb 9.9 L Hct 30.8 L MCV 83 MCH 26.7 L MCHC 32.0 RDW 17.4 H Plt Count 390 Seg Neutrophils % Not Reportable Sodium 136.5 L Potassium 4.6 Chloride 93 L Carbon Dioxide 35 H Anion Gap 9 BUN 17 Creatinine 0.58 Est GFR ( Amer) > 60 Glucose 249 H Calcium 8.8 04/13/19 04/14/19 04/15/19 23:00 17:02 05:14 Troponin I 0.013 NT-Pro-B Natriuret Pep 880 H 1950 H 1790 H 04/16/19 05:06 Troponin I NT-Pro-B Natriuret Pep 1080 H Impressions: Chest X-Ray 04/17/19 07:00 IMPRESSION: The patchy opacities in the mid lateral aspect of the right hemithorax have improved. The prominence of the interstitium and the bilateral pleural effusions (left greater than right) are unchanged. Clinical correlation for signs and symptoms of volume overload is recommended. Assessment and Plan - Diagnosis (1) Acute and chronic respiratory failure with hypoxia Is this a current diagnosis for this admission?: Yes Plan: Improving. SPO2 WNL on 2-3 L. Due to acute COPD exacerbation in the setting of pneumonia and acute CHF exacerbation. Continue duo nebs, BiPAP, supplemental oxygen, broad-spectrum empiric IV antibiotics, pulmonary toileting, incentive spirometry, flutter valve. (2) Chronic atrial fibrillation Is this a current diagnosis for this admission?: Yes Plan: Rate controlled. Anticoagulated. Continue current meds. Outpatient PCP and cardiology follow-up. (3) Acute exacerbation of CHF (congestive heart failure) Qualifiers: Heart failure type: unspecified Qualified Code(s): I50.9 - Heart failure, unspecified Is this a current diagnosis for this admission?: Yes Plan: Denies any history of CAD. Presented with proBNP 1950. Troponins 0.013. 2D echo 12/28/2016. LVEF 65%. RSVP 28 mmHg. Likely due to acute hypoxic respiratory failure setting of chronic A. fib. Appears euvolemic. Continue cardiac diet. Diuretics. Outpatient PCP follow-up. (4) COPD exacerbation Is this a current diagnosis for this admission?: Yes Plan: History of COPD oxygen dependent 2 L/min at baseline. Plan as per #1. (5) Hypothyroidism Qualifiers: Hypothyroidism type: unspecified Qualified Code(s): E03.9 - Hypothyroidism, unspecified Is this a current diagnosis for this admission?: Yes Plan: Resume home meds. Outpatient PCP follow-up. (6) Pneumonia Qualifiers: Pneumonia type: due to unspecified organism Laterality: right Lung location: lower lobe of lung Qualified Code(s): J18.9 - Pneumonia, unspecified organism Is this a current diagnosis for this admission?: Yes Plan: Improving. Afebrile. WBC 17.6. Blood cultures negative. No sputum culture available. Chest x-ray on admission patchy airspace disease in the right hemithorax possibly pneumonia. Likely due to gram-positive cocci's including Streptococcus pneumonia. (7) Leucocytosis Qualifiers: Leukocytosis type: unspecified Qualified Code(s): D72.829 - Elevated white blood cell count, unspecified Is this a current diagnosis for this admission?: Yes Plan: Mild worsening likely due to IV steroids. History of chronic leukocytosis. As per family and patient she has had leukocytosis chronically and has been evaluated by hematology outpatient. Patient denies having any history of malignancy. Baseline WBC is 10-39,000 since 2012.
[2019-04-20] MEDS ORDERED: KETOROLAC TROMETHAMINE INJ/PF 30 MG/1 ML SDV IV ONE (11:00)
[2019-04-20] MEDS: MORPHINE SULFATE 10 MG/ML INJ IV PRN ×2 (17:23→23:28)
[2019-04-20] MEDS: LEVALBUTEROL HCL NEB 0.63 MG/3 ML AMPUL NEB PRN (19:44)
[2019-04-21] MEDS: METHYLPREDNISOLONE INJ 125 MG/2 ML SDV IV SCH (05:57)
[2019-04-21] MEDS: LEVOTHYROXINE SODIUM 0.112 MG TABLET PO SCH (05:57)
[2019-04-21] MEDS: PANTOPRAZOLE SODIUM 40 MG TABLET.DR PO SCH (05:57)
[2019-04-21] MEDS: ROPINIROLE HCL 2 MG TABLET PO SCH (06:00)
[2019-04-21] MEDS: LEVALBUTEROL HCL NEB 1.25 MG/3 ML AMPUL NEB SCH (08:42)
[2019-04-21] MEDS: IPRATROPIUM BROMIDE 0.02% NEB 0.5 MG/2.5 ML AMPUL NEB SCH (08:42)
[2019-04-21] MEDS: BUDESONIDE NEB 0.5 MG/2 ML AMPUL NEB SCH (08:43)
[2019-04-21] MEDS: ACETYLCYSTEINE 20% SOLN 800 MG/4 ML VIAL.NEB NEB SCH (08:44)
[2019-04-21] MEDS ORDERED: POTASSIUM CHLORIDE 10 MEQ TABLET.ER PO SCH (10:00)
[2019-04-21] MEDS: ASPIRIN 81 MG TABLET, ENT COATED PO SCH (11:54)
[2019-04-21] MEDS: APIXABAN 5 MG TABLET PO SCH (11:54)
[2019-04-21] MEDS: CYANOCOBALAMIN (VITAMIN B-12) 1,000 MCG TABLET PO SCH (11:55)
[2019-04-21] MEDS: ATORVASTATIN CALCIUM 40 MG TABLET PO SCH (11:55)
[2019-04-21] MEDS: MAGNESIUM OXIDE 400 MG TABLET PO SCH (11:55)
[2019-04-21] MEDS: CETIRIZINE 10 MG TABLET PO SCH (11:55)
[2019-04-21] MEDS: CITALOPRAM HYDROBROMIDE 20 MG TABLET PO SCH (11:56)
[2019-04-21] MEDS: ROFLUMILAST 500 MCG TABLET PO SCH (11:56)
[2019-04-21] MEDS: BUSPIRONE HCL 10 MG TABLET PO SCH (11:56)
[2019-04-21] MEDS: FERROUS SULFATE 325 MG TABLET PO SCH (11:56)
[2019-04-21] MEDS: DOCUSATE SODIUM 100 MG CAPSULE PO SCH (11:57)
[2019-04-21 12:28] VITALS: BP 141/75
--- NOTE | 2019-04-21 12:34 | PDOC TRANSFER SUMMARY ---
Impression - Admit/DC Date/PCP Admission Date/Primary Care Provider: 04/14/19 01:13 AGUSTO AGRAWAL, DO - Discharge Diagnosis (1) Acute and chronic respiratory failure with hypoxia Is this a current diagnosis for this admission?: Yes (2) Chronic atrial fibrillation Is this a current diagnosis for this admission?: Yes (3) Acute exacerbation of CHF (congestive heart failure) Is this a current diagnosis for this admission?: Yes (4) COPD exacerbation Is this a current diagnosis for this admission?: Yes (5) Hypothyroidism Is this a current diagnosis for this admission?: Yes (6) Pneumonia Is this a current diagnosis for this admission?: Yes (7) Leucocytosis Is this a current diagnosis for this admission?: Yes - Additional Information Resuscitation Status: Full Code Discharge Diet: As Tolerated, Regular Discharge Activity: Activity As Tolerated, Balance Activity w/Rest Referrals: TOSIN MAGANA MD [NO LOCAL MD] - 05/12/19 3:30 pm Home Medications: Albuterol Sulfate [Proair HFA Inhalation Aerosol 8.5 gm MDI] 2 puff IH Q4HP PRN 10/30/18 Aspirin [Ecotrin 81 mg EC Tablet] 81 mg PO DAILY 10/30/18 Budesonide/Formoterol Fumarate [Symbicort HFA 160-4.5 mcg Inhaler 6 gm] 2 puff IH Q12 10/30/18 Citalopram Hydrobromide [Celexa 40 mg Tablet] 40 mg PO DAILY 10/30/18 Pantoprazole Sodium [Protonix [address] Tablet] 40 mg PO Q6AM 10/30/18 Roflumilast [Daliresp 500 mcg Tablet] 500 mcg PO DAILY 10/30/18 Ropinirole HCl [Requip 2 mg Tablet] 2 mg PO Q8 10/30/18 Cyanocobalamin (Vitamin B-12) [Vitamin B-12 1000 mcg Tablet] 1,000 mcg PO DAILY #30 tablet 11/04/18 Ferrous Sulfate [Albafort] 325 mg PO DAILY #30 tablet 11/04/18 Apixaban [Eliquis 5 mg Tablet] 5 mg PO Q12 04/13/19 Buspirone HCl 5 mg PO Q12 04/13/19 Cetirizine HCl [Zyrtec] 10 mg PO DAILY 04/13/19 Furosemide [Lasix 20 mg Tablet] 80 mg PO BIDP PRN 04/13/19 Levothyroxine Sodium [Synthroid 0.112 mg Tablet] 112 mcg PO Q6AM 04/13/19 Magnesium Oxide [Magnesium] 400 mg PO DAILY 04/13/19 Potassium Chloride 20 meq PO BID 04/13/19 Atorvastatin Calcium [Lipitor 20 mg Tablet] 20 mg PO DAILY 04/14/19 History of Present Illiness History of Present Illness: LEVI GIBBONS is a 69 year old female Physical Exam Vital Signs: Temp Pulse Resp BP Pulse Ox 97.5 F 82 18 141/75 H 98 04/21/19 12:27 04/21/19 12:27 04/21/19 12:27 04/21/19 12:27 04/21/19 12:27 Intake & Output 04/20/19 04/21/19 04/22/19 06:59 06:59 06:59 Intake Total 1390 1137 Balance 1390 1137 Weight 102.9 kg 104.5 kg Results Laboratory Results: WBC 19.2 10^3/uL (4.0-10.5) H 04/20/19 05:22 RBC 3.70 10^6/uL (3.72-5.28) L 04/20/19 05:22 Hgb 9.9 g/dL (12.0-15.5) L 04/20/19 05:22 Hct 30.8 % (36.0-47.0) L 04/20/19 05:22 MCV 83 fl (80-97) 04/20/19 05:22 MCH 26.7 pg (27.0-33.4) L 04/20/19 05:22 MCHC 32.0 g/dL (32.0-36.0) 04/20/19 05:22 RDW 17.4 % (11.5-14.0) H 04/20/19 05:22 Plt Count 390 10^3/uL (150-450) 04/20/19 05:22 Lymph % (Auto) Not Reportable 04/20/19 05:22 Morgan % (Auto) Not Reportable 04/20/19 05:22 Eos % (Auto) Not Reportable 04/20/19 05:22 Baso % (Auto) Not Reportable 04/20/19 05:22 Absolute Neuts (auto) Not Reportable 04/20/19 05:22 Absolute Lymphs (auto) Not Reportable 04/20/19 05:22 Absolute Monos (auto) Not Reportable 04/20/19 05:22 Absolute Eos (auto) Not Reportable 04/20/19 05:22 Absolute Basos (auto) Not Reportable 04/20/19 05:22 Total Counted 100 04/20/19 05:22 Seg Neutrophils % Not Reportable 04/20/19 05:22 Seg Neuts % (Manual) 98 % (42-78) H 04/20/19 05:22 Band Neutrophils % 1 % (3-5) L 04/13/19 23:00 Lymphocytes % (Manual) 1 % (13-45) L 04/20/19 05:22 Atypical Lymphs % 1 % (0) 04/13/19 23:00 Monocytes % (Manual) 1 % (3-13) L 04/20/19 05:22 Eosinophils % (Manual) 0 % (0-6) 04/20/19 05:22 Basophils % (Manual) 0 % (0-2) 04/20/19 05:22 Abs Neuts (Manual) 18.8 10^3/uL (1.7-8.2) H 04/20/19 05:22 Abs Lymphs (Manual) 0.2 10^3/uL (0.5-4.7) L 04/20/19 05:22 Abs Monocytes (Manual) 0.2 10^3/uL (0.1-1.4) 04/20/19 05:22 Absolute Eos (Manual) 0.0 10^3/uL (0.0-0.6) 04/20/19 05:22 Abs Basophils (Manual) 0.0 10^3/uL (0.0-0.2) 04/20/19 05:22 Platelet Comment ADEQUATE 04/20/19 05:22 Anisocytosis 1+ 04/20/19 05:22 Tear Drop Cells SLIGHT 04/13/19 23:00 VBG pH 7.32 (7.30-7.42) 04/13/19 23:00 VBG pCO2 57.2 mmHg (35-63) 04/13/19 23:00 VBG HCO3 28.7 mmol/L (20-32) 04/13/19 23:00 VBG Base Excess 1.0 mmol/L 04/13/19 23:00 Sodium 136.5 mmol/L (137-145) L 04/20/19 05:22 Potassium 4.6 mmol/L (3.6-5.0) 04/20/19 05:22 Chloride 93 mmol/L (98-107) L 04/20/19 05:22 Carbon Dioxide 35 mmol/L (22-30) H 04/20/19 05:22 Anion Gap 9 (5-19) 04/20/19 05:22 BUN 17 mg/dL (7-20) 04/20/19 05:22 Creatinine 0.58 mg/dL (0.52-1.25) 04/20/19 05:22 Est GFR ( Amer) > 60 (>60) 04/20/19 05:22 Est GFR (MDRD) Non-Af > 60 (>60) 04/20/19 05:22 Glucose 249 mg/dL (75-110) H 04/20/19 05:22 Lactic Acid 1.3 mmol/L (0.7-2.1) 04/15/19 08:47 Calcium 8.8 mg/dL (8.4-10.2) 04/20/19 05:22 Magnesium 2.0 mg/dL (1.6-2.3) 04/17/19 05:34 Total Bilirubin 0.5 mg/dL (0.2-1.3) 04/13/19 23:00 Direct Bilirubin 0.5 mg/dL (0.0-0.4) H 04/13/19 23:00 Neonat Total Bilirubin Not Reportable 04/13/19 23:00 Neonat Direct Bilirubin Not Reportable 04/13/19 23:00 Neonat Indirect Bili Not Reportable 04/13/19 23:00 AST 22 U/L (14-36) 04/13/19 23:00 ALT 18 U/L (<35) 04/13/19 23:00 Alkaline Phosphatase 146 U/L (38-126) H 04/13/19 23:00 Troponin I 0.013 ng/mL 04/13/19 23:00 NT-Pro-B Natriuret Pep 1080 pg/mL (<125) H 04/16/19 05:06 Total Protein 6.5 g/dL (6.3-8.2) 04/13/19 23:00 Albumin 3.0 g/dL (3.5-5.0) L 04/13/19 23:00 Time Trough Drawn 0534 04/17/19 05:34 Vancomycin Trough 15.9 ug/mL (5.0-20.0) 04/17/19 05:34 Influenza A (Rapid) NEGATIVE (NEGATIVE) 04/13/19 21:54 Influenza B (Rapid) NEGATIVE (NEGATIVE) 04/13/19 21:54 04/13/19 04/14/19 04/15/19 23:00 17:02 05:14 Troponin I 0.013 NT-Pro-B Natriuret Pep 880 H 1950 H 1790 H 04/16/19 05:06 Troponin I NT-Pro-B Natriuret Pep 1080 H Impressions: Chest X-Ray 04/13/19 21:16 IMPRESSION: Patchy airspace disease right hemithorax, suspicious for pneumonia copyright 2011 [employer]- All Rights Reserved Chest X-Ray 04/17/19 07:00 IMPRESSION: The patchy opacities in the mid lateral aspect of the right hemithorax have improved. The prominence of the interstitium and the bilateral pleural effusions (left greater than right) are unchanged. Clinical correlation for signs and symptoms of volume overload is recommended.
--- NOTE | 2019-04-25 14:32 | PDOC DISCHARGE SUMMARY ---
Impression - Admit/DC Date/PCP Admission Date/Primary Care Provider: 04/14/19 01:13 AGUSTO AGRAWAL, Discharge Date: 04/21/19 - Discharge Diagnosis (1) Acute and chronic respiratory failure with hypoxia Is this a current diagnosis for this admission?: Yes (2) Chronic atrial fibrillation Is this a current diagnosis for this admission?: Yes (3) Acute exacerbation of CHF (congestive heart failure) Is this a current diagnosis for this admission?: Yes (4) COPD exacerbation Is this a current diagnosis for this admission?: Yes (5) Hypothyroidism Is this a current diagnosis for this admission?: Yes (6) Pneumonia Is this a current diagnosis for this admission?: Yes (7) Leucocytosis Is this a current diagnosis for this admission?: Yes - Additional Information Resuscitation Status: Full Code Discharge Diet: As Tolerated, Regular Discharge Activity: Activity As Tolerated, Balance Activity w/Rest Referrals: TOSIN MAGANA MD [NO LOCAL MD] - 05/12/19 3:30 pm Prescriptions: Prednisone [Deltasone 20 mg Tablet] 40 mg PO DAILY 4 Days #8 tablet MDD took one dose Home Medications: Albuterol Sulfate [Proair HFA Inhalation Aerosol 8.5 gm MDI] 2 puff IH Q4HP PRN 10/30/18 Aspirin [Ecotrin 81 mg EC Tablet] 81 mg PO DAILY 10/30/18 Budesonide/Formoterol Fumarate [Symbicort HFA 160-4.5 mcg Inhaler 6 gm] 2 puff IH Q12 10/30/18 Citalopram Hydrobromide [Celexa 40 mg Tablet] 40 mg PO DAILY 10/30/18 Pantoprazole Sodium [Protonix [address] Tablet] 40 mg PO Q6AM 10/30/18 Roflumilast [Daliresp 500 mcg Tablet] 500 mcg PO DAILY 10/30/18 Ropinirole HCl [Requip 2 mg Tablet] 2 mg PO Q8 10/30/18 Cyanocobalamin (Vitamin B-12) [Vitamin B-12 1000 mcg Tablet] 1,000 mcg PO DAILY #30 tablet 11/04/18 Ferrous Sulfate [Albafort] 325 mg PO DAILY #30 tablet 11/04/18 Apixaban [Eliquis 5 mg Tablet] 5 mg PO Q12 04/13/19 Buspirone HCl 5 mg PO Q12 04/13/19 Cetirizine HCl [Zyrtec] 10 mg PO DAILY 04/13/19 Furosemide [Lasix 20 mg Tablet] 80 mg PO BIDP PRN 04/13/19 Levothyroxine Sodium [Synthroid 0.112 mg Tablet] 112 mcg PO Q6AM 04/13/19 Magnesium Oxide [Magnesium] 400 mg PO DAILY 04/13/19 Potassium Chloride 20 meq PO BID 04/13/19 Atorvastatin Calcium [Lipitor 20 mg Tablet] 20 mg PO DAILY 04/14/19 Prednisone [Deltasone 20 mg Tablet] 40 mg PO DAILY 4 Days #8 tablet MDD took one dose 04/21/19 History of Present Illiness History of Present Illness: LEVI GIBBONS is a 69 year old female presented emergency room with a one-week history of dyspnea. Patient admits that she has experienced gradually worsening dyspnea over the last week becoming extremely severe this evening prior to calling EMS. Her dyspnea has been accompanied by wheezing and is worsened with exertion. She denies other associated or accompanying signs and symptoms. She admits numerous prior similar episodes with exacerbations of her COPD. She is on chronic home O2 at 2 L/min via nasal cannula and on CPAP at bedtime for obstructive sleep apnea. She has not identified any additional aggravating or ameliorating factors for her dyspnea. In the emergency room patient was found to have acute on chronic respiratory failure with hypoxia requiring BiPAP to alleviate her dyspnea and extreme respiratory failure/respiratory distress symptoms. She was also noted to have an elevated white count which is actually on the low end of her recent baseline range. Chest x-ray reported airspace disease however on evaluation of previous chest x-rays I have noted that the same pattern exists on each x-ray in exactly the same area and feels this most likely represents chronic change rather than acute. Patient was subsequently admitted to the hospital for further evaluation treatment. Hospital Course Hospital Course: (1) Acute and chronic respiratory failure with hypoxia Resolved. Patient back to baseline on 2 L/min nasal cannula. Benign respiratory examination. Due to acute COPD exacerbation in the setting of pneumonia and acute CHF exacerbation. Started on duo nebs, BiPAP, supplemental oxygen, broad-spectrum empiric IV antibiotics, pulmonary toileting, incentive spirometry, flutter valve. (2) Chronic atrial fibrillation Rate controlled. Anticoagulated. Continued current meds. Outpatient PCP and cardiology follow-up. (3) Acute exacerbation of CHF (congestive heart failure) Denies any history of CAD. Presented with proBNP 1950. Troponins 0.013. 2D echo 12/28/2016. LVEF 65%. RSVP 28 mmHg. Likely due to acute hypoxic respiratory failure setting of chronic A. fib. Compensated. Was continued on cardiac diet. Diuretics. Outpatient PCP follow- up. (4) COPD exacerbation History of COPD oxygen dependent 2 L/min at baseline. Plan as per #1. (5) Hypothyroidism Resumed home meds. Outpatient PCP follow-up. (6) Pneumonia Afebrile. WBC 17.6. Blood cultures negative. No sputum culture available. Chest x-ray on admission patchy airspace disease in the right hemithorax possibly pneumonia. Likely due to gram-positive cocci's including Streptococcus pneumonia. Completed a course of empiric IV vancomycin and cefepime. All cultures returned back negative. (7) Leucocytosis History of chronic leukocytosis. No sign of systemic infection. As per family and patient she has had leukocytosis chronically and has been evaluated by hematology outpatient. Patient denies having any history of malignancy. Baseline WBC is 10-39,000 since 2011. Physical Exam Vital Signs: Temp Pulse Resp BP Pulse Ox 97.5 F 82 18 141/75 H 98 04/21/19 12:37 04/21/19 12:37 04/21/19 12:37 04/21/19 12:37 04/21/19 12:37 General appearance: PRESENT: no acute distress, well-developed, well-nourished Respiratory exam: PRESENT: clear to auscultation armand. ABSENT: rales, rhonchi, wheezes Cardiovascular exam: PRESENT: irregular rhythm. ABSENT: diastolic murmur, rubs, systolic murmur GI/Abdominal exam: PRESENT: normal bowel sounds, soft. ABSENT: distended, guarding, mass, organolmegaly, rebound, tenderness Neurological exam: PRESENT: alert, awake, oriented to person, oriented to place, oriented to time, oriented to situation, CN II-XII grossly intact. ABSENT: motor sensory deficit Results Laboratory Results: WBC 19.2 10^3/uL (4.0-10.5) H 04/20/19 05:22 RBC 3.70 10^6/uL (3.72-5.28) L 04/20/19 05:22 Hgb 9.9 g/dL (12.0-15.5) L 04/20/19 05:22 Hct 30.8 % (36.0-47.0) L 04/20/19 05:22 MCV 83 fl (80-97) 04/20/19 05:22 MCH 26.7 pg (27.0-33.4) L 04/20/19 05:22 MCHC 32.0 g/dL (32.0-36.0) 04/20/19 05:22 RDW 17.4 % (11.5-14.0) H 04/20/19 05:22 Plt Count 390 10^3/uL (150-450) 04/20/19 05:22 Lymph % (Auto) Not Reportable 04/20/19 05:22 [place] % (Auto) Not Reportable 04/20/19 05:22 Eos % (Auto) Not Reportable 04/20/19 05:22 Baso % (Auto) Not Reportable 04/20/19 05:22 Absolute Neuts (auto) Not Reportable 04/20/19 05:22 Absolute Lymphs (auto) Not Reportable 04/20/19 05:22 Absolute Monos (auto) Not Reportable 04/20/19 05:22 Absolute Eos (auto) Not Reportable 04/20/19 05:22 Absolute Basos (auto) Not Reportable 04/20/19 05:22 Total Counted 100 04/20/19 05:22 Seg Neutrophils % Not Reportable 04/20/19 05:22 Seg Neuts % (Manual) 98 % (42-78) H 04/20/19 05:22 Band Neutrophils % 1 % (3-5) L 04/13/19 23:00 Lymphocytes % (Manual) 1 % (13-45) L 04/20/19 05:22 Atypical Lymphs % 1 % (0) 04/13/19 23:00 Monocytes % (Manual) 1 % (3-13) L 04/20/19 05:22 Eosinophils % (Manual) 0 % (0-6) 04/20/19 05:22 Basophils % (Manual) 0 % (0-2) 04/20/19 05:22 Abs Neuts (Manual) 18.8 10^3/uL (1.7-8.2) H 04/20/19 05:22 Abs Lymphs (Manual) 0.2 10^3/uL (0.5-4.7) L 04/20/19 05:22 Abs Monocytes (Manual) 0.2 10^3/uL (0.1-1.4) 04/20/19 05:22 Absolute Eos (Manual) 0.0 10^3/uL (0.0-0.6) 04/20/19 05:22 Abs Basophils (Manual) 0.0 10^3/uL (0.0-0.2) 04/20/19 05:22 Platelet Comment ADEQUATE 04/20/19 05:22 Anisocytosis 1+ 04/20/19 05:22 Tear Drop Cells SLIGHT 04/13/19 23:00 VBG pH 7.32 (7.30-7.42) 04/13/19 23:00 VBG pCO2 57.2 mmHg (35-63) 04/13/19 23:00 VBG HCO3 28.7 mmol/L (20-32) 04/13/19 23:00 VBG Base Excess 1.0 mmol/L 04/13/19 23:00 Sodium 136.5 mmol/L (137-145) L 04/20/19 05:22 Potassium 4.6 mmol/L (3.6-5.0) 04/20/19 05:22 Chloride 93 mmol/L (98-107) L 04/20/19 05:22 Carbon Dioxide 35 mmol/L (22-30) H 04/20/19 05:22 Anion Gap 9 (5-19) 04/20/19 05:22 BUN 17 mg/dL (7-20) 04/20/19 05:22 Creatinine 0.58 mg/dL (0.52-1.25) 04/20/19 05:22 Est GFR ( Amer) > 60 (>60) 04/20/19 05:22 Est GFR (MDRD) Non-Af > 60 (>60) 04/20/19 05:22 Glucose 249 mg/dL (75-110) H 04/20/19 05:22 Lactic Acid 1.3 mmol/L (0.7-2.1) 04/15/19 08:47 Calcium 8.8 mg/dL (8.4-10.2) 04/20/19 05:22 Magnesium 2.0 mg/dL (1.6-2.3) 04/17/19 05:34 Total Bilirubin 0.5 mg/dL (0.2-1.3) 04/13/19 23:00 Direct Bilirubin 0.5 mg/dL (0.0-0.4) H 04/13/19 23:00 Neonat Total Bilirubin Not Reportable 04/13/19 23:00 Neonat Direct Bilirubin Not Reportable 04/13/19 23:00 Neonat Indirect Bili Not Reportable 04/13/19 23:00 AST 22 U/L (14-36) 04/13/19 23:00 ALT 18 U/L (<35) 04/13/19 23:00 Alkaline Phosphatase 146 U/L (38-126) H 04/13/19 23:00 Troponin I 0.013 ng/mL 04/13/19 23:00 NT-Pro-B Natriuret Pep 1080 pg/mL (<125) H 04/16/19 05:06 Total Protein 6.5 g/dL (6.3-8.2) 04/13/19 23:00 Albumin 3.0 g/dL (3.5-5.0) L 04/13/19 23:00 Time Trough Drawn 0534 04/17/19 05:34 Vancomycin Trough 15.9 ug/mL (5.0-20.0) 04/17/19 05:34 Influenza A (Rapid) NEGATIVE (NEGATIVE) 04/13/19 21:54 Influenza B (Rapid) NEGATIVE (NEGATIVE) 04/13/19 21:54 04/13/19 04/14/19 04/15/19 23:00 17:02 05:14 Troponin I 0.013 NT-Pro-B Natriuret Pep 880 H 1950 H 1790 H 04/16/19 05:06 Troponin I NT-Pro-B Natriuret Pep 1080 H Impressions: Chest X-Ray 04/13/19 21:16 IMPRESSION: Patchy airspace disease right hemithorax, suspicious for pneumonia copyright 2011 [employer]- All Rights Reserved Chest X-Ray 04/17/19 07:00 IMPRESSION: The patchy opacities in the mid lateral aspect of the right hemithorax have improved. The prominence of the interstitium and the bilateral pleural effusions (left greater than right) are unchanged. Clinical correlation for signs and symptoms of volume overload is recommended. Stroke Is this a Stroke Patient?: No Acute Heart Failure - Is this a Heart Failure Patient?: No
--- NOTE | 2019-06-11 08:29 | Progress Note ---
Provider Note Provider Note: Clarification Heart failure-likely systolic but unable to determine definitely due to no echocardiogram. Likely acute on chronic but unable to determine for sure. Atrial fibrillation-longstanding and persistent Pneumonia-unable to determine organism due to lack of sputum culture
== END 2019-04-21 13:24 | disposition home or self-care (01) | DRG 189 ==
LOC: ER 21:11 → EH 04-14 01:13 → 3W 04-14 02:21 → 3S 04-14 16:22
PROVIDERS: ADMIT Emergency Medicine; ATTEND Emergency Medicine
PROC: 5A09557 Assistance with Respiratory Ventilation, Greater than 96 Consecutive Hours, Continuous Positive Airway Pressure (ICD-10-PCS; principal; 2019-04-13)
DX: J96.21 Acute and chronic respiratory failure with hypoxia (principal); J18.9 Pneumonia, unspecified organism; I50.23 Acute on chronic systolic (congestive) heart failure; J44.1 Chronic obstructive pulmonary disease with (acute) exacerbation; J44.0 Chronic obstructive pulmonary disease with (acute) lower respiratory infection; I48.11 Longstanding persistent atrial fibrillation; C94.6 Myelodysplastic disease, not elsewhere classified; I11.0 Hypertensive heart disease with heart failure; G47.33 Obstructive sleep apnea (adult) (pediatric); E03.9 Hypothyroidism, unspecified; F32.9 Major depressive disorder, single episode, unspecified; F17.210 Nicotine dependence, cigarettes, uncomplicated; K21.0 Gastro-esophageal reflux disease with esophagitis; D63.8 Anemia in other chronic diseases classified elsewhere; Z60.2 Problems related to living alone; Z79.899 Other long term (current) drug therapy; Z79.82 Long term (current) use of aspirin; Z79.01 Long term (current) use of anticoagulants; Z79.890 Hormone replacement therapy; Z79.52 Long term (current) use of systemic steroids; Z79.51 Long term (current) use of inhaled steroids; Z99.81 Dependence on supplemental oxygen; Z86.711 Personal history of pulmonary embolism; Z88.6 Allergy status to analgesic agent; Z82.49 Family history of ischemic heart disease and other diseases of the circulatory system; Z83.3 Family history of diabetes mellitus; Z83.6 Family history of other diseases of the respiratory system
CPT/HCPCS: 36415; 71045; 71046; 80048; 80053; 80202; 82803; 83605; 83735; 83880; 84484; 85025; 85027; 87040; 87804; 93005; 93010; 94640; 94660; 96365; 96367; 99285; J0692; J1885; J2060; J2270; J2405; J2920; J2930; J3370; J3490; J7060; J7120; J7614; J7620

== ENCOUNTER 2019-04-22 22:56 | Inpatient (IN) | payer MEDICARE, BC ==
--- NOTE | 2019-04-22 23:19 | ER Document Report ---
ED General - General Stated Complaint: DIFFICULTY BREATHING Time Seen by Provider: 04/22/19 23:12 Mode of Arrival: Medic Information source: Patient TRAVEL OUTSIDE OF THE [place] IN LAST 30 DAYS: No - HPI Onset: This morning Onset/Duration: Gradual Quality of pain: Achy Severity: Severe Pain Level: 2 Associated symptoms: Headache, Shortness of breath, Other - wheezing Exacerbated by: Walking, Other - exertion Relieved by: Denies Similar symptoms previously: Yes - patient has COPD and CHF Recently seen / treated by doctor: Yes - patient was just discharged on 04/21/19 Notes: 69 year old female with a history of COPD on 2-3L of O2, PE, HTN, Hypothyroidism, GERD, Depression who was just discharged on 04/21/19 for respiratory failure and pneumonia (she was hospitalized for a week) here for shortness of breath and trouble breathing. EMS found the patient to have a temperature to 101.7F and they administered tylenol and a neb. Patient was tachypnic with pursed lip breathing on ER arrival. Patient's apparently just in the last week which is not making matters any easier on the patient. - Related Data Allergies/Adverse Reactions: hydromorphone HCl [From Dilaudid] Allergy (Severe, Verified 04/13/19 21:13) Passed out Past Medical History - General Information source: Patient - Social History Smoking Status: Former Smoker Frequency of alcohol use: None Drug Abuse: None Lives with: Family Family History: CAD, COPD, DM, Hypertension. denies: Malignancy - Past Medical History Cardiac Medical History: Reports: Hx Atrial Fibrillation, Hx Hypertension, Hx Pulmonary Embolism - 30+yrs ago Denies: Hx Congestive Heart Failure, Hx Coronary Artery Disease, Hx Heart Attack, Hx Hypercholesterolemia, Hx Peripheral Vascular Disease, Hx Heart Murmur Pulmonary Medical History: Reports: Hx Asthma, Hx Bronchitis, Hx COPD, Hx Pneumonia, Hx Respiratory Failure, Hx Tuberculosis Denies: Hx Sleep Apnea Neurological Medical History: Denies: Hx Cerebrovascular Accident, Hx Seizures Endocrine Medical History: Reports: Hx Hypothyroidism. Denies: Hx Diabetes Mellitus Type 1, Hx Diabetes Mellitus Type 2, Hx Graves' Disease, Hx Hyperthyroidism Renal/ Medical History: Denies: Hx End Stage Renal Disease, Hx Kidney Stones, Hx Peritoneal Dialysis Malignancy Medical History: Denies: Hx Lung Cancer GI Medical History: Reports: Hx Gastroesophageal Reflux Disease. Denies: Hx Cirrhosis, Hx Crohn's Disease, Hx Diverticulitis, Hx Hepatitis, Hx Hiatal Hernia, Hx Ulcer, Hx Ulcerative Colitis Musculoskeletal Medical History: Reports Hx Arthritis, Denies Hx Fibromyalgia, Denies Hx Gout, Denies Hx Muscular Dystrophy, Denies Hx Systemic Lupus Erythematosus Skin Medical History: Denies Hx Eczema, Denies Hx Psoriasis Psychiatric Medical History: Reports: Hx Depression Denies: Hx Bipolar Disorder, Hx Post Traumatic Stress Disorder, Hx Schizophrenia Traumatic Medical History: Denies: Hx Fractures Infectious Medical History: Denies: Hx C-Diff, Hx Hepatitis, Hx MRSA Past Surgical History: Reports: Hx Hysterectomy, Hx Orthopedic Surgery - Carpal tunnel, ganglion cyst, trigger finger, Hx Tubal Ligation, Hx Urinary Tract Surgery. Denies: Hx Appendectomy, Hx Bowel Surgery, Hx Section, Hx Cholecystectomy, Hx Coronary Artery Bypass Graft, Hx Gastric Bypass Surgery, Hx Herniorrhaphy, Hx Mastectomy, Hx Open Heart Surgery, Hx Pacemaker, Hx Tonsillectomy - Immunizations Hx Diphtheria, Pertussis, Tetanus Vaccination: Yes Hx Pneumococcal Vaccination: 02/22/10 Review of Systems - Review of Systems Constitutional: Fever, Weakness EENT: No symptoms reported Cardiovascular: Lightheaded Respiratory: Cough, Short of breath, Wheezing Gastrointestinal: No symptoms reported Genitourinary: No symptoms reported Female Genitourinary: No symptoms reported Musculoskeletal: No symptoms reported Skin: No symptoms reported Hematologic/Lymphatic: No symptoms reported Neurological/Psychological: No symptoms reported -: Yes All other systems reviewed and negative Physical Exam - Vital signs Vitals: Resp 20 04/22/19 22:59 - Notes Notes: GENERAL: Chronically ill-appearing, well-nourished and in no acute distress. HEAD: Atraumatic, normocephalic. EYES: Pupils equal round and reactive to light, extraocular movements intact, sclera anicteric, conjunctiva are normal. ENT: Nares patent, oropharynx clear without exudates. Moist mucous membranes. NECK: Normal range of motion, supple without lymphadenopathy or JVD. LUNGS: Decreased breath sounds, diffuse wheezing. No rales or rhonchi. HEART: Regular rate and rhythm without murmurs, rubs or gallops. ABDOMEN: Soft, nontender, normoactive bowel sounds. No guarding, no rebound. No masses appreciated. EXTREMITIES: Normal range of motion, no pitting or edema. No clubbing or cyanosis. NEUROLOGICAL: Cranial nerves II through XII grossly intact. Normal speech, normal gait. PSYCH: Normal mood, normal affect. SKIN: Warm, Dry, normal turgor, no rashes or lesions noted. Course - Re-evaluation Re-evalutation: 04/23/19 01:42 The patient was just discharged 2 days ago for respiratory failure and pneumonia. The patient has a persistently elevated WBC count and today is no different. She apparently has myeloproliferative disease and she has been on steroids for the last week due to respiratory failure. The patient's lactic acid and BNP are elevated today. Patient's Chest Xray looks unchanged. The patient feels much more short of breath then when she was in the hospital. Will therefore treat with HCAP antibiotics and readmit. Patient was not given the sepsis fluids since she has significant CHF and her BNP is more elevated then her baseline. - Vital Signs Vital signs: Temp Pulse Resp BP Pulse Ox 99.6 F 24 H 109/63 95 04/23/19 00:41 04/23/19 00:50 04/23/19 00:50 04/23/19 00:50 - Laboratory Result Diagrams: 04/22/19 23:10 04/22/19 23:10 Laboratory results interpreted by me: 04/22/19 04/22/19 04/22/19 23:10 23:10 23:10 WBC 21.2 H RBC 3.55 L Hgb 9.4 L Hct 30.4 L MCH 26.5 L MCHC 30.9 L RDW 18.5 H Seg Neuts % (Manual) 91 H Lymphocytes % (Manual) 5 L Abs Neuts (Manual) 19.3 H ABG pH ABG HCO3 ABG Total CO2 Sodium 134.4 L Chloride 96 L Carbon Dioxide 32 H Creatinine 0.51 L Lactic Acid Calcium 8.2 L AST 50 H ALT 43 H NT-Pro-B Natriuret Pep 1520 H Albumin 3.2 L 04/22/19 04/22/19 23:10 23:25 WBC RBC Hgb Hct MCH MCHC RDW Seg Neuts % (Manual) Lymphocytes % (Manual) Abs Neuts (Manual) ABG pH 7.52 H ABG HCO3 30.1 H ABG Total CO2 31.2 H Sodium Chloride Carbon Dioxide Creatinine Lactic Acid 3.3 H Calcium AST ALT NT-Pro-B Natriuret Pep Albumin - Diagnostic Test Radiology reviewed: Image reviewed, Reports reviewed - EKG Interpretation by Me Rate: Normal Rhythm: Other - V paced Allen/QRS: Left axis deviation When compared to previous EKG there are: No significant change Discharge - Discharge Clinical Impression: Lactic acidosis COPD (chronic obstructive pulmonary disease) Qualifiers: COPD type: COPD with acute exacerbation Qualified Code(s): J44.1 - Chronic obstructive pulmonary disease with (acute) exacerbation Fever Qualifiers: Fever type: unspecified Qualified Code(s): R50.9 - Fever, unspecified Heart failure Qualifiers: Heart failure type: unspecified Heart failure chronicity: unspecified Qualified Code(s): I50.9 - Heart failure, unspecified Condition: Fair Disposition: ADMITTED INPATIENT Admitting Provider: Jesús (Hospitalist) Unit Admitted: [facility]
[2019-04-22 23:32] LABS: HEMATOCRIT 30.4 % (36.0-47.0); HEMOGLOBIN 9.4 g/dL (12.0-15.5); MEAN CORPUSCULAR HEMOGLOBIN 26.5 pg (27.0-33.4); MEAN CORPUSCULAR HGB CONC 30.9 g/dL (32.0-36.0); MEAN CORPUSCULAR VOLUME 86 fl (80-97); PLATELET COUNT 425 10^3/uL (150-450); RED BLOOD COUNT 3.55 10^6/uL (3.72-5.28); RED CELL DISTRIBUTION WIDTH 18.5 % (11.5-14.0); WHITE BLOOD COUNT 21.2 10^3/uL (4.0-10.5)
[2019-04-22] MEDS ORDERED: METHYLPREDNISOLONE INJ 125 MG/2 ML SDV IV ONE (23:34)
[2019-04-22] MEDS ORDERED: IPRATROPIUM/ALBUTEROL 0.5-2.5 MG/3 ML AMPUL NEB ONE (23:34)
[2019-04-22 23:41] LABS: ARTERIAL BLOOD BASE EXCESS 6.7 mmol/L; ARTERIAL BLOOD H2CO3 1.15 mmol/L (1.05-1.35); ARTERIAL BLOOD HCO3 30.1 mmol/L (20-24); ARTERIAL BLOOD O2 SATURATION 97.5 % (94-98); ARTERIAL BLOOD PCO2 38.1 mmHg (35-45); ARTERIAL BLOOD PH 7.52 (7.35-7.45); ARTERIAL BLOOD PO2 88.3 mmHg (80-100); ARTERIAL BLOOD TOTAL CO2 31.2 mmol/L (21-25)
[2019-04-22 23:45] LABS: ARTERIAL BLOOD FIO2 2L NC
[2019-04-22 23:46] LABS: ALBUMIN 3.2 g/dL (3.5-5.0); ALKALINE PHOSPHATASE 111 U/L (38-126); ANION GAP 6 (5-19); ASPARTATE AMINO TRANSFERASE 50 U/L (14-36); BILIRUBIN,DIRECT 0.4 mg/dL (0.0-0.4); BILIRUBIN,TOTAL 0.5 mg/dL (0.2-1.3); BLOOD UREA NITROGEN 19 mg/dL (7-20); CALCIUM 8.2 mg/dL (8.4-10.2); CARBON DIOXIDE 32 mmol/L (22-30); CHLORIDE 96 mmol/L (98-107); GLUCOSE 97 mg/dL (75-110); POTASSIUM 4.5 mmol/L (3.6-5.0); TOTAL PROTEIN 6.4 g/dL (6.3-8.2)
[2019-04-22 23:58] LABS: ABSOLUTE LYMPHOCYTES# (MANUAL) 1.1 10^3/uL (0.5-4.7); ABSOLUTE MONOCYTES # (MANUAL) 0.8 10^3/uL (0.1-1.4); BASOPHILS % (MANUAL) 0 % (0-2); EOSINOPHILS % (MANUAL) 0 % (0-6); LYMPHOCYTES % (MANUAL) 5 % (13-45); MONOCYTES % (MANUAL) 4 % (3-13); NT PRO BNP 1520 pg/mL (<125); SEGMENTED NEUTROPHILS % (MAN) 91 % (42-78); TOTAL CELLS COUNTED 100
[2019-04-22 23:59] LABS: ANISOCYTOSIS 1+; HYPOCHROMASIA 1+; PLATELET COMMENT ADEQUATE; TROPONIN I < 0.012 ng/mL
--- NOTE | 2019-04-23 00:03 | RADIOLOGY REPORT (SQ) ---
EXAM: XR Chest, 2 Views EXAM DATE/TIME: 04/22/2019 11:39 CLINICAL HISTORY: The patient is 69 years old and is Female; eval for pneumonia TECHNIQUE: Frontal and lateral views of the chest. COMPARISON: Chest radiograph from 04/17/2019 FINDINGS: LUNGS: Patchy small areas of increased density again noted in the right lung. These are not significantly changed. The left lung is clear. PLEURAL SPACE: No significant pleural effusion. No obvious pneumothorax. HEART: Stable enlargement of the cardiac silhouette. MEDIASTINUM: Unremarkable. BONES/JOINTS: No acute osseous findings. TUBES, LINES AND DEVICES: Left-sided pacemaker in place with single lead unchanged in position. IMPRESSION: Patchy small areas of increased density again noted in the right lung. These are not significantly changed and may represent pneumonia. Follow-up is recommended to ensure resolution.
[2019-04-23] MEDS ORDERED: TRAMADOL HCL 50 MG TABLET PO ONE (00:51)
[2019-04-23] MEDS ORDERED: VANCOMYCIN HCL INJ 1000 MG VIAL IV ONE (01:04)
[2019-04-23] MEDS ORDERED: PIPERACILLIN/TAZOBACTAM 3.375 GM VIAL IV ONE (01:04)
[2019-04-23] MEDS ORDERED: HYDRALAZINE HCL INJ/PF 20 MG/1 ML SDV IV PRN (01:17)
[2019-04-23] MEDS ORDERED: VANCOMYCIN HCL 0 MG in DEXTROSE 5%-WATER 250 ML IV NR (01:30)
[2019-04-23] MEDS: CHLORPHENIRAMINE MALEATE 4 MG TABLET PO SCH ×4 (01:32→17:41)
[2019-04-23 01:33] LABS: A TYPE INFLUENZA AG NEGATIVE (NEGATIVE); B INFLUENZA AG NEGATIVE (NEGATIVE)
[2019-04-23 01:41] LABS: ABSOLUTE RETICS # 0.102 10^6/uL (0.028-0.122); RETICULOCYTE COUNT (AUTO) 2.85 % (0.66-2.85)
[2019-04-23 02:11] LABS: IRON(TIBC) 31.9 ug/dL (37-170)
[2019-04-23 03:18] LABS: FOLATE 5.98 ng/mL (>2.76)
[2019-04-23] MEDS ORDERED: MELATONIN 1 MG TABLET PO PRN (04:08)
[2019-04-23] MEDS ORDERED: CEFEPIME 2 GM/D5W RTU 2 GM/50 ML RTUPB IV ONE (05:24)
[2019-04-23] MEDS ORDERED: IRON SUCROSE COMPLEX INJ/PF 100 MG/5 ML SDV IV ONE (05:53)
[2019-04-23] MEDS ORDERED: HEPARIN SOD (PORCINE) 5,000 UNIT/ML 1 ML VIAL SUBCUT SCH (06:00)
[2019-04-23] MEDS ORDERED: CEFEPIME 2 GM/D5W RTU 2 GM/50 ML RTUPB IV SCH (06:00)
--- NOTE | 2019-04-23 06:26 | PDOC H&P ---
History of Present Illness Admission Date/PCP: 04/23/19 01:31 AGUSTO AGRAWAL DO Patient complains of: Shortness of breath and fever History of Present Illness: LEVI GIBBONS is a 69 year old female with a past medical history of paroxysmal atrial fibrillation status post permanent pacemaker, oxygen dependent COPD, prednisone dependent chronic bronchitis, obstructive sleep apnea, myelodysplasia with chronic leukocytosis, iron deficiency anemia and morbid obesity. She presents 24 hours following discharge for pneumonia with shortness of breath, fever and cough with productive green sputum prompting evaluation in the emergency room where she is found to have a tachypnea with retractions, worsening leukocytosis from baseline and a new right lung base infiltrate. She receives Zosyn and vancomycin and referred to the hospitalist for admission. Past Medical History Cardiac Medical History: Reports: Atrial Fibrillation, Hypertension, Pulmonary Embolism - 30+yrs ago Denies: Congestive Heart Failure, Coronary Artery Disease, Myocardial Infarction, Hyperlipidema, Peripheral Vascular Disease, Heart Murmur Pulmonary Medical History: Reports: Asthma, Bronchitis, Chronic Obstructive Pulmonary Disease (COPD), Pneumonia, Respiratory Failure, Tuberculosis Denies: Sleep Apnea Neurological Medical History: Denies: Seizures Endocrine Medical History: Reports: Hypothyroidism Denies: Diabetes Mellitus Type 1, Diabetes Mellitus Type 2, Hyperthyroidism Renal/ Medical History: Denies: End Stage Renal Disease Malignancy Medical History: Denies: Lung Cancer GI Medical History: Reports: Gastroesophageal Reflux Disease Denies: Cirrhosis, Crohn's Disease, Diverticulitis, Hepatitis, Hiatal Hernia, Ulcerative Colitis Musculoskeltal Medical History: Reports: Arthritis Denies: Fibromyalgia, Gout Skin Medical History: Denies: Eczema, Psoriasis Psychiatric Medical History: Reports: Depression Denies: Bipolar Disorder, Post Traumatic Stress Disorder Hematology: Reports: Anemia - Myelodysplastic syndrome Denies: Sickle Cell Disease, Bleeding Tendencies Infectious Medical History: Denies: Clostridium Difficile, Methicillin-Resistant Staph Aureus Past Surgical History Past Surgical History: Reports: Hysterectomy, Orthopedic Surgery - Carpal tunnel, ganglion cyst, trigger finger, Tubal Ligation Denies: Amputation, Appendectomy, Section, Cholecystectomy, Coronary Artery Bypass Graft, Gastric Bypass Surgery, Herniorrhaphy, Mastectomy, Pacemaker, Tonsillectomy Social History Information Source: Patient, [facility] Records Lives with: Family Smoking Status: Former Smoker Number of Years Smokin Last Time Smoked: 1 year ago Frequency of Alcohol Use: None Hx Recreational Drug Use: No Drugs: None Hx Prescription Drug Abuse: No - Advance Directive Resuscitation Status: Full Code Family History Family History: CAD, COPD, DM, Hypertension. denies: Malignancy Parental Family History Reviewed: Yes Children Family History Reviewed: Yes Sibling(s) Family History Reviewed.: Yes Medication/Allergy Home Medications: Albuterol Sulfate [Proair HFA Inhalation Aerosol 8.5 gm MDI] 2 puff IH Q4HP PRN 10/30/18 Aspirin [Ecotrin 81 mg EC Tablet] 81 mg PO DAILY 10/30/18 Budesonide/Formoterol Fumarate [Symbicort HFA 160-4.5 mcg Inhaler 6 gm] 2 puff I H Q12 10/30/18 Citalopram Hydrobromide [Celexa 40 mg Tablet] 40 mg PO DAILY 10/30/18 Pantoprazole Sodium [Protonix [address] Tablet] 40 mg PO Q6AM 10/30/18 Roflumilast [Daliresp 500 mcg Tablet] 500 mcg PO DAILY 10/30/18 Ropinirole HCl [Requip 2 mg Tablet] 2 mg PO Q8 10/30/18 Cyanocobalamin (Vitamin B-12) [Vitamin B-12 1000 mcg Tablet] 1,000 mcg PO DAILY #30 tablet 11/04/18 Ferrous Sulfate [Albafort] 325 mg PO DAILY #30 tablet 11/04/18 Apixaban [Eliquis 5 mg Tablet] 5 mg PO Q12 04/13/19 Buspirone HCl 5 mg PO Q12 04/13/19 Cetirizine HCl [Zyrtec] 10 mg PO DAILY 04/13/19 Furosemide [Lasix 20 mg Tablet] 80 mg PO BIDP PRN 04/13/19 Levothyroxine Sodium [Synthroid 0.112 mg Tablet] 112 mcg PO Q6AM 04/13/19 Magnesium Oxide [Magnesium] 400 mg PO DAILY 04/13/19 Potassium Chloride 20 meq PO BID 04/13/19 Atorvastatin Calcium [Lipitor 20 mg Tablet] 20 mg PO DAILY 04/14/19 Prednisone [Deltasone 20 mg Tablet] 40 mg PO DAILY 4 Days #8 tablet 04/21/19 Allergies/Adverse Reactions: hydromorphone HCl [From Dilaudid] Allergy (Severe, Verified 04/13/19 21:13) Passed out Review of Systems ROS unobtainable: Due to mental status - Shortness of breath Physical Exam Vital Signs: Temp Pulse Resp BP Pulse Ox 99.1 F 80 29 H 114/50 L 96 04/23/19 03:03 04/23/19 03:03 04/23/19 03:30 04/23/19 03:03 04/23/19 04:40 Intake & Output 04/21/19 04/22/19 04/23/19 11:59 11:59 11:59 Intake Total 260 Output Total 300 Balance -40 Weight 100 kg General appearance: PRESENT: cooperative, morbidly obese, severe distress, well- developed, well-nourished Head exam: PRESENT: atraumatic, normocephalic Eye exam: PRESENT: conjunctiva pink, EOMI, PERRLA. ABSENT: scleral icterus Ear exam: PRESENT: normal external ear exam Mouth exam: PRESENT: moist, tongue midline Neck exam: ABSENT: carotid bruit, JVD, lymphadenopathy, thyromegaly Respiratory exam: PRESENT: accessory muscle use, crackles, decreased breath sounds, retraction, tachypnea. ABSENT: rales, rhonchi, wheezes Cardiovascular exam: PRESENT: RRR. ABSENT: diastolic murmur, rubs, systolic murmur Pulses: PRESENT: normal dorsalis pedis pul Vascular exam: PRESENT: normal capillary refill GI/Abdominal exam: PRESENT: normal bowel sounds, soft. ABSENT: distended, guarding, mass, organolmegaly, rebound, tenderness Rectal exam: PRESENT: deferred Extremities exam: PRESENT: full ROM. ABSENT: calf tenderness, clubbing, pedal edema Neurological exam: PRESENT: alert, awake, oriented to person, oriented to place, oriented to time, oriented to situation, CN II-XII grossly intact. ABSENT: motor sensory deficit Psychiatric exam: PRESENT: appropriate affect, normal mood. ABSENT: homicidal ideation, suicidal ideation Skin exam: PRESENT: dry, intact, warm. ABSENT: cyanosis, rash Results Laboratory Results: 04/22/19 23:10 04/22/19 23:10 04/22/19 04/22/19 04/22/19 23:10 23:10 23:10 WBC 21.2 H RBC 3.55 L Hgb 9.4 L Hct 30.4 L MCV 86 MCH 26.5 L MCHC 30.9 L RDW 18.5 H Plt Count 425 Seg Neutrophils % Not Reportable Retic Count (auto) Carbonic Acid HCO3/H2CO3 Ratio ABG pH ABG pCO2 ABG pO2 ABG HCO3 ABG O2 Saturation ABG Base Excess FiO2 Sodium 134.4 L Potassium 4.5 Chloride 96 L Carbon Dioxide 32 H Anion Gap 6 BUN 19 Creatinine 0.51 L Est GFR ( Amer) > 60 Glucose 97 Lactic Acid 3.3 H Calcium 8.2 L Iron TIBC % Saturation Ferritin Total Bilirubin 0.5 AST 50 H Alkaline Phosphatase 111 Total Protein 6.4 Albumin 3.2 L Vitamin B12 Folate 04/22/19 04/22/19 04/22/19 23:10 23:10 23:25 WBC RBC Hgb Hct MCV MCH MCHC RDW Plt Count Seg Neutrophils % Retic Count (auto) 2.85 Carbonic Acid 1.15 HCO3/H2CO3 Ratio 26:1 ABG pH 7.52 H ABG pCO2 38.1 ABG pO2 88.3 ABG HCO3 30.1 H ABG O2 Saturation 97.5 ABG Base Excess 6.7 FiO2 2L NC Sodium Potassium Chloride Carbon Dioxide Anion Gap BUN Creatinine Est GFR ( Amer) Glucose Lactic Acid Calcium Iron 31.9 L TIBC 272 % Saturation 12 Ferritin 38.40 Total Bilirubin AST Alkaline Phosphatase Total Protein Albumin Vitamin B12 682.0 Folate 5.98 04/22/19 23:10 Troponin I < 0.012 NT-Pro-B Natriuret Pep 1520 H Impressions: Chest X-Ray 04/22/19 23:18 IMPRESSION: Patchy small areas of increased density again noted in the right lung. These are not significantly changed and may represent pneumonia. Follow-up is recommended to ensure resolution. Assessment and Plan - Diagnosis (1) Pneumonia Qualifiers: Pneumonia type: due to unspecified organism Laterality: right Lung location: lower lobe of lung Qualified Code(s): J18.9 - Pneumonia, unspecified organism Is this a current diagnosis for this admission?: Yes Plan: Concern for healthcare associated pneumonia given recent discharge. Pneumonia care set deployed vancomycin and cefepime ordered, incentive spirometry and flutter valve. Follow-up CBC blood and sputum culture (2) Microcytic anemia Is this a current diagnosis for this admission?: Yes Plan: Likely iron deficient, follow-up anemia labs (3) Myelodysplasia (myelodysplastic syndrome) Is this a current diagnosis for this admission?: Yes Plan: Near baseline, mild elevation likely secondary to pneumonia. Follow-up CBC (4) Obstructive sleep apnea of adult Is this a current diagnosis for this admission?: Yes Plan: BiPAP while asleep. - Time Time Spent with patient: 25-34 minutes - Inpatient Certification Medical Necessity: Need Close Monitoring Due to Risk of Patient Decompensation
[2019-04-23] MEDS: BENZOCAINE/MENTHOL SORE THROAT LOZENGE BUCCAL PRN (06:55)
[2019-04-23] MEDS: ACETAMINOPHEN 325 MG TABLET PO PRN ×3 (06:56→22:04)
[2019-04-23] MEDS ORDERED: IPRATROPIUM/ALBUTEROL 0.5-2.5 MG/3 ML AMPUL NEB SCH ×2 (08:00)
[2019-04-23] MEDS ORDERED: PREDNISONE 20 MG TABLET PO SCH (10:00)
[2019-04-23] MEDS ORDERED: FUROSEMIDE 40 MG TABLET ONE (10:46)
[2019-04-23] MEDS: FLUTICASONE NASAL SPRAY 50 MCG/SPRY 120 SPRAY/16 GM NASL SCH ×2 (10:48→22:00)
[2019-04-23] MEDS: METHYLPREDNISOLONE INJ 40 MG/1 ML SDV IV SCH ×2 (10:48→22:00)
[2019-04-23] MEDS: APIXABAN 5 MG TABLET PO SCH ×2 (10:48→17:41)
[2019-04-23] MEDS: VANCOMYCIN HCL 1,250 MG in DEXTROSE 5%-WATER 250 ML IV SCH ×2 (10:48→17:41)
[2019-04-23] MEDS: FUROSEMIDE 20 MG TABLET PO SCH (11:31)
[2019-04-23] MEDS: IPRATROPIUM/ALBUTEROL 0.5-2.5 MG/3 ML AMPUL NEB PRN (12:06)
[2019-04-23] MEDS: IPRATROPIUM/ALBUTEROL 0.5-2.5 MG/3 ML AMPUL NEB SCH ×2 (13:54→20:09)
[2019-04-23] MEDS: ROPINIROLE HCL 2 MG TABLET PO SCH ×2 (14:51→21:59)
--- NOTE | 2019-04-23 16:18 | EKG REPORT ---
SEVERITY:- ABNORMAL ECG - AFIB/FLUTTER AND VENTRICULAR-PACED RHYTHM : Confirmed by: Gloria Stephen MD 23-Apr-2019 16:17:24
[2019-04-23] MEDS: CEFEPIME HCL 2 GM in DEXTROSE 5%-WATER 50 ML IV SCH (17:42)
[2019-04-23] MEDS: BUSPIRONE HCL 10 MG TABLET PO SCH (21:59)
[2019-04-23] MEDS: MELATONIN 3 MG TABLET PO PRN (22:00)
[2019-04-23] MEDS: POTASSIUM CHLORIDE 10 MEQ TABLET.ER PO SCH (22:00)
[2019-04-24] MEDS: IPRATROPIUM/ALBUTEROL 0.5-2.5 MG/3 ML AMPUL NEB PRN ×2 (00:02→15:27)
[2019-04-24] MEDS: IPRATROPIUM/ALBUTEROL 0.5-2.5 MG/3 ML AMPUL NEB SCH ×4 (02:10→20:56)
[2019-04-24] MEDS: VANCOMYCIN HCL 1,250 MG in DEXTROSE 5%-WATER 250 ML IV SCH ×3 (02:55→17:47)
[2019-04-24] MEDS: ACETAMINOPHEN 325 MG TABLET PO PRN ×2 (03:02→09:13)
[2019-04-24] MEDS ORDERED: IPRATROPIUM/ALBUTEROL 0.5-2.5 MG/3 ML AMPUL NEB ONE (05:00)
[2019-04-24 05:46] LABS: HEMOGLOBIN 9.2 g/dL (12.0-15.5); MEAN CORPUSCULAR HEMOGLOBIN 26.2 pg (27.0-33.4); MEAN CORPUSCULAR HGB CONC 30.8 g/dL (32.0-36.0); MEAN CORPUSCULAR VOLUME 85 fl (80-97); PLATELET COUNT 339 10^3/uL (150-450); RED BLOOD COUNT 3.53 10^6/uL (3.72-5.28); RED CELL DISTRIBUTION WIDTH 18.3 % (11.5-14.0); WHITE BLOOD COUNT 21.5 10^3/uL (4.0-10.5)
[2019-04-24] MEDS: PANTOPRAZOLE SODIUM 40 MG TABLET.DR PO SCH (06:06)
[2019-04-24] MEDS: LEVOTHYROXINE SODIUM 0.112 MG TABLET PO SCH (06:06)
[2019-04-24] MEDS: ROPINIROLE HCL 2 MG TABLET PO SCH ×3 (06:06→21:02)
[2019-04-24] MEDS: CEFEPIME HCL 2 GM in DEXTROSE 5%-WATER 50 ML IV SCH ×2 (06:06→17:47)
[2019-04-24 06:13] LABS: ANION GAP 6 (5-19); BLOOD UREA NITROGEN 20 mg/dL (7-20); CALCIUM 8.1 mg/dL (8.4-10.2); CARBON DIOXIDE 38 mmol/L (22-30); CHLORIDE 93 mmol/L (98-107); GLUCOSE 199 mg/dL (75-110); POTASSIUM 4.2 mmol/L (3.6-5.0)
[2019-04-24 06:17] LABS: ABSOLUTE MONOCYTES # (MANUAL) 0.6 10^3/uL (0.1-1.4); BASOPHILS % (MANUAL) 0 % (0-2); EOSINOPHILS % (MANUAL) 0 % (0-6); LYMPHOCYTES % (MANUAL) 0 % (13-45); MONOCYTES % (MANUAL) 3 % (3-13); SEGMENTED NEUTROPHILS % (MAN) 97 % (42-78); TOTAL CELLS COUNTED 100
[2019-04-24 06:22] LABS: ANISOCYTOSIS 1+; OVALOCYTES 1+; PLATELET COMMENT ADEQUATE; POIKILOCYTOSIS 1+; TEAR DROP CELLS SLIGHT; TOXIC GRANULATION 1+
[2019-04-24] MEDS: FUROSEMIDE 20 MG TABLET PO SCH (09:09)
[2019-04-24] MEDS: APIXABAN 5 MG TABLET PO SCH ×2 (09:10→17:47)
[2019-04-24] MEDS: BUSPIRONE HCL 10 MG TABLET PO SCH ×2 (09:10→21:02)
[2019-04-24] MEDS: CITALOPRAM HYDROBROMIDE 20 MG TABLET PO SCH (09:10)
[2019-04-24] MEDS: CETIRIZINE 10 MG TABLET PO SCH (09:10)
[2019-04-24] MEDS: FERROUS SULFATE 325 MG TABLET PO SCH (09:10)
[2019-04-24] MEDS: CYANOCOBALAMIN (VITAMIN B-12) 1,000 MCG TABLET PO SCH (09:10)
[2019-04-24] MEDS: ASPIRIN 81 MG TABLET, ENT COATED PO SCH (09:10)
[2019-04-24] MEDS: ROFLUMILAST 500 MCG TABLET PO SCH (09:10)
[2019-04-24] MEDS: POTASSIUM CHLORIDE 10 MEQ TABLET.ER PO SCH ×2 (09:10→21:01)
[2019-04-24] MEDS: ATORVASTATIN CALCIUM 20 MG TABLET PO SCH (09:11)
[2019-04-24] MEDS: METHYLPREDNISOLONE INJ 40 MG/1 ML SDV IV SCH ×2 (09:11→21:02)
[2019-04-24] MEDS: FLUTICASONE NASAL SPRAY 50 MCG/SPRY 120 SPRAY/16 GM NASL SCH ×2 (09:11→21:01)
[2019-04-24] MEDS: MAGNESIUM OXIDE 400 MG TABLET PO SCH (09:11)
[2019-04-24 10:12] LABS: ARTERIAL BLOOD BASE EXCESS 10.4 mmol/L; ARTERIAL BLOOD H2CO3 1.74 mmol/L (1.05-1.35); ARTERIAL BLOOD HCO3 36.5 mmol/L (20-24); ARTERIAL BLOOD O2 SATURATION 97.6 % (94-98); ARTERIAL BLOOD PCO2 57.8 mmHg (35-45); ARTERIAL BLOOD PH 7.42 (7.35-7.45); ARTERIAL BLOOD PO2 101.7 mmHg (80-100); ARTERIAL BLOOD TOTAL CO2 38.3 mmol/L (21-25)
[2019-04-24 10:14] LABS: ARTERIAL BLOOD FIO2 50%
[2019-04-24 10:38] LABS: VANCOMYCIN,TROUGH 19.5 ug/mL (5.0-20.0)
[2019-04-24] MEDS ORDERED: LORAZEPAM INJ 2 MG/1 ML VIAL IV PRN (10:59)
--- NOTE | 2019-04-24 11:11 | PDOC PROGRESS REPORT ---
Subjective Progress Note for:: 04/24/19 Subjective:: I attempted to take patient off BiPAP this morning to talk to however patient got very anxious and started hyperventilating. Placed patient back on BiPAP. Patient states that she had a tough time breathing last night. Did not eat much of her food yesterday because she could not tolerate being off BiPAP. Denies any chest pain at this time. Reason For Visit: COPD EXACERBATION PNEUMONIA Physical Exam Vital Signs: Temp Pulse Resp BP Pulse Ox 97.3 F 80 21 H 110/57 L 100 04/24/19 07:39 04/24/19 07:51 04/24/19 10:14 04/24/19 07:39 04/24/19 10:14 Intake & Output 04/23/19 04/24/19 04/25/19 06:59 06:59 06:59 Intake Total 260 1280 50 Output Total 300 1680 Balance -40 -400 50 Weight 100 kg 101.3 kg General appearance: PRESENT: no acute distress, cooperative Neck exam: ABSENT: JVD Respiratory exam: PRESENT: accessory muscle use - Exam denotes appearance when the BiPAP was taken off, decreased breath sounds, retraction, tachypnea, wheezes - Mild Cardiovascular exam: PRESENT: RRR, +S1, +S2. ABSENT: tachycardia GI/Abdominal exam: PRESENT: soft. ABSENT: rebound, rigid, tenderness Neurological exam: PRESENT: alert, awake, oriented to person, oriented to place, oriented to time Results Laboratory Results: 04/24/19 04:37 04/24/19 09:36 04/24/19 04/24/19 04/24/19 04:37 04:37 09:36 WBC 21.5 H RBC 3.53 L Hgb 9.2 L Hct 30.0 L MCV 85 MCH 26.2 L MCHC 30.8 L RDW 18.3 H Plt Count 339 Seg Neutrophils % Not Reportable Carbonic Acid HCO3/H2CO3 Ratio ABG pH ABG pCO2 ABG pO2 ABG HCO3 ABG O2 Saturation ABG Base Excess FiO2 Sodium 136.5 L Potassium 4.2 Chloride 93 L Carbon Dioxide 38 H Anion Gap 6 BUN 20 Creatinine 0.54 0.57 Est GFR ( Amer) > 60 > 60 Glucose 199 H Calcium 8.1 L 04/24/19 10:00 WBC RBC Hgb Hct MCV MCH MCHC RDW Plt Count Seg Neutrophils % Carbonic Acid 1.74 H HCO3/H2CO3 Ratio 20:1 ABG pH 7.42 ABG pCO2 57.8 H ABG pO2 101.7 H ABG HCO3 36.5 H ABG O2 Saturation 97.6 ABG Base Excess 10.4 FiO2 50% Sodium Potassium Chloride Carbon Dioxide Anion Gap BUN Creatinine Est GFR ( Amer) Glucose Calcium 04/22/19 23:10 Troponin I < 0.012 NT-Pro-B Natriuret Pep 1520 H Impressions: Chest X-Ray 04/22/19 23:18 IMPRESSION: Patchy small areas of increased density again noted in the right lung. These are not significantly changed and may represent pneumonia. Follow-up is recommended to ensure resolution. Assessment and Plan - Diagnosis (1) Pneumonia Qualifiers: Pneumonia type: due to unspecified organism Laterality: right Lung location: lower lobe of lung Qualified Code(s): J18.9 - Pneumonia, unspecified organism Is this a current diagnosis for this admission?: Yes Plan: There was concern for potential healthcare associated pneumonia given recent hospitalization however she was readmitted about 1 day after discharge and may just be that she requires prolonged antibiotic course for treatment of the very same pneumonia. Continue IV vancomycin and cefepime. Follow-up sputum cultures. Blood cultures negative so far. Besides initial reading of 100.8 on admission, fever seems to have resolved. (2) COPD exacerbation Is this a current diagnosis for this admission?: Yes Plan: Patient with acute respiratory failure with some hypercapnia noted on ABG this morning. Requiring BiPAP continuously. Will decrease FiO2 and maintain on BiPAP. We will try to place on high flow nasal cannula at a high flow rate at least when eating. Solu-Medrol 40 mg every 12. Frequent nebulizer treatments. (3) Myelodysplasia (myelodysplastic syndrome) Is this a current diagnosis for this admission?: Yes Plan: Anemia appears chronic and stable. She does have a history of MDS. - Time Time Spent with patient: 15-24 minutes
[2019-04-24] MEDS ORDERED: MORPHINE SULFATE 10 MG/ML INJ IV ONE (17:00)
[2019-04-24 18:37] LABS: ARTERIAL BLOOD BASE EXCESS 12.7 mmol/L; ARTERIAL BLOOD FIO2 30%; ARTERIAL BLOOD H2CO3 2.06 mmol/L (1.05-1.35); ARTERIAL BLOOD HCO3 40.2 mmol/L (20-24); ARTERIAL BLOOD O2 SATURATION 95.3 % (94-98); ARTERIAL BLOOD PCO2 68.4 mmHg (35-45); ARTERIAL BLOOD PH 7.39 (7.35-7.45); ARTERIAL BLOOD PO2 80.3 mmHg (80-100); ARTERIAL BLOOD TOTAL CO2 42.3 mmol/L (21-25)
--- NOTE | 2019-04-24 19:34 | Progress Note ---
Provider Note Provider Note: Patient still notably hypercapnic with pH of 7.39 and PCO2 trending up despite being tachypneic throughout the day. I have discussed patient's case with bicycle mechanic and requesting stat MICU evaluation. Assignment Desk Assistant to evaluate.
--- NOTE | 2019-04-24 21:54 | PDOC CONSULTATION ---
Consultation Consult Date: 04/24/19 Provider Consulted: MAN SNIDER Consult reason:: trachypnea History of Present Illness Admission Date/PCP: 04/23/19 01:31 AGUSTO AGRAWAL DO Patient complains of: SOB, anxiety History of Present Illness: LEVI GIBBONS is a 69 year old female with PMH of pararoxsmal A-fib, s/p permanent pacemaker, O2 dependent COPD, steroid dependent, chonic bronchitis, NOAM, iron deficiency anemia, morbid obesity and chronic leukocytosis. She was ad mitted to the hospital several days ago for COPD exacerbation and pneumonia. She was discharged and returned back the following day to the hospital with SOB, fever and productive cough. ICU was consulted for concerns with tachypnea. Past Medical History Cardiac Medical History: Reports: Atrial Fibrillation, Hypertension, Pulmonary Embolism - 30+yrs ago Denies: Congestive Heart Failure, Coronary Artery Disease, Myocardial Infarction, Hyperlipidema, Peripheral Vascular Disease, Heart Murmur Pulmonary Medical History: Reports: Asthma, Bronchitis, Chronic Obstructive Pulmonary Disease (COPD), Pneumonia, Respiratory Failure, Tuberculosis Denies: Sleep Apnea Neurological Medical History: Denies: Seizures Endocrine Medical History: Reports: Hypothyroidism Denies: Diabetes Mellitus Type 1, Diabetes Mellitus Type 2, Hyperthyroidism Renal/ Medical History: Denies: End Stage Renal Disease Malignancy Medical History: Denies: Lung Cancer GI Medical History: Reports: Gastroesophageal Reflux Disease Denies: Cirrhosis, Crohn's Disease, Diverticulitis, Hepatitis, Hiatal Hernia, Ulcerative Colitis Musculoskeltal Medical History: Reports: Arthritis Denies: Fibromyalgia, Gout Skin Medical History: Denies: Eczema, Psoriasis Psychiatric Medical History: Reports: Depression Denies: Bipolar Disorder, Post Traumatic Stress Disorder Hematology: Reports: Anemia - Myelodysplastic syndrome Denies: Sickle Cell Disease, Bleeding Tendencies Infectious Medical History: Denies: Clostridium Difficile, Methicillin-Resistant Staph Aureus Past Surgical History Past Surgical History: Reports: Hysterectomy, Orthopedic Surgery - Carpal tunnel, ganglion cyst, trigger finger, Tubal Ligation Denies: Amputation, Appendectomy, Section, Cholecystectomy, Coronary Artery Bypass Graft, Gastric Bypass Surgery, Herniorrhaphy, Mastectomy, Pacemaker, Tonsillectomy Social History Lives with: Family Smoking Status: Former Smoker Number of Years Smokin Last Time Smoked: 1 year ago Frequency of Alcohol Use: None Hx Recreational Drug Use: No Drugs: None Hx Prescription Drug Abuse: No - Advance Directive Resuscitation Status: Full Code Family History Family History: CAD, COPD, DM, Hypertension. denies: Malignancy Parental Family History Reviewed: No Children Family History Reviewed: No Sibling(s) Family History Reviewed.: No Medication/Allergy Home Medications: Albuterol Sulfate [Proair HFA Inhalation Aerosol 8.5 gm MDI] 2 puff IH Q4HP PRN 10/30/18 Aspirin [Ecotrin 81 mg EC Tablet] 81 mg PO DAILY 10/30/18 Budesonide/Formoterol Fumarate [Symbicort HFA 160-4.5 mcg Inhaler 6 gm] 2 puff IH Q12 10/30/18 Citalopram Hydrobromide [Celexa 40 mg Tablet] 40 mg PO DAILY 10/30/18 Pantoprazole Sodium [Protonix [address] Tablet] 40 mg PO Q6AM 10/30/18 Roflumilast [Daliresp 500 mcg Tablet] 500 mcg PO DAILY 10/30/18 Ropinirole HCl [Requip 2 mg Tablet] 2 mg PO Q8 10/30/18 Cyanocobalamin (Vitamin B-12) [Vitamin B-12 1000 mcg Tablet] 1,000 mcg PO DAILY #30 tablet 11/04/18 Ferrous Sulfate [Albafort] 325 mg PO DAILY #30 tablet 11/04/18 Apixaban [Eliquis 5 mg Tablet] 5 mg PO Q12 04/13/19 Buspirone HCl 5 mg PO Q12 04/13/19 Cetirizine HCl [Zyrtec] 10 mg PO DAILY 04/13/19 Furosemide [Lasix 20 mg Tablet] 80 mg PO BIDP PRN 04/13/19 Levothyroxine Sodium [Synthroid 0.112 mg Tablet] 112 mcg PO Q6AM 04/13/19 Magnesium Oxide [Magnesium] 400 mg PO DAILY 04/13/19 Potassium Chloride 20 meq PO BID 04/13/19 Atorvastatin Calcium [Lipitor 20 mg Tablet] 20 mg PO DAILY 04/14/19 Prednisone [Deltasone 20 mg Tablet] 40 mg PO DAILY 4 Days #8 tablet MDD took one dose 04/21/19 Allergies/Adverse Reactions: hydromorphone HCl [From Dilaudid] Allergy (Severe, Verified 04/13/19 21:13) Passed out Physical Exam Vital Signs: Temp Pulse Resp BP Pulse Ox 98.5 F 80 14 109/54 L 97 04/24/19 20:13 04/24/19 20:13 04/24/19 20:13 04/24/19 20:13 04/24/19 20:13 Intake & Output 04/23/19 04/24/19 04/25/19 06:59 06:59 06:59 Intake Total 260 1280 706 Output Total 300 1680 900 Balance -40 -400 -194 Weight 100 kg 101.3 kg Physical Exam: 69yr old F sitting up in bed with BiPAP with mild respiratory distress. She is able to have a conversation with BiPAP on and she took BiPAP off to take a drink of water. General appearance: PRESENT: cooperative, mild distress, morbidly obese, well- developed, well-nourished Head exam: PRESENT: atraumatic, normocephalic Eye exam: PRESENT: conjunctiva pink, EOMI, PERRLA Ear exam: PRESENT: normal external ear exam Mouth exam: PRESENT: dry mucosa, tongue midline Neck exam: PRESENT: JVD. ABSENT: tracheal deviation Respiratory exam: PRESENT: accessory muscle use, crackles, tachypnea. ABSENT: wheezes Cardiovascular exam: PRESENT: gallop, RRR, +S1, +S2. ABSENT: tachycardia Pulses: PRESENT: normal radial pulses, normal dorsalis pedis pul Vascular exam: ABSENT: pallor GI/Abdominal exam: PRESENT: normal bowel sounds, soft. ABSENT: distended, tend erness Extremities exam: PRESENT: pedal edema Neurological exam: PRESENT: alert, awake, oriented to person, oriented to place, oriented to time, oriented to situation, CN II-XII grossly intact Psychiatric exam: PRESENT: anxious Skin exam: PRESENT: dry, warm Results Laboratory Results: 04/24/19 04:37 04/24/19 09:36 04/24/19 04/24/19 04/24/19 04:37 04:37 09:36 WBC 21.5 H RBC 3.53 L Hgb 9.2 L Hct 30.0 L MCV 85 MCH 26.2 L MCHC 30.8 L RDW 18.3 H Plt Count 339 Seg Neutrophils % Not Reportable Carbonic Acid HCO3/H2CO3 Ratio ABG pH ABG pCO2 ABG pO2 ABG HCO3 ABG O2 Saturation ABG Base Excess FiO2 Sodium 136.5 L Potassium 4.2 Chloride 93 L Carbon Dioxide 38 H Anion Gap 6 BUN 20 Creatinine 0.54 0.57 Est GFR ( Amer) > 60 > 60 Glucose 199 H Calcium 8.1 L 04/24/19 04/24/19 10:00 18:09 WBC RBC Hgb Hct MCV MCH MCHC RDW Plt Count Seg Neutrophils % Carbonic Acid 1.74 H 2.06 H HCO3/H2CO3 Ratio 20:1 19:1 ABG pH 7.42 7.39 ABG pCO2 57.8 H 68.4 H ABG pO2 101.7 H 80.3 ABG HCO3 36.5 H 40.2 H ABG O2 Saturation 97.6 95.3 ABG Base Excess 10.4 12.7 FiO2 50% 30% Sodium Potassium Chloride Carbon Dioxide Anion Gap BUN Creatinine Est GFR ( Amer) Glucose Calcium 04/22/19 23:10 Troponin I < 0.012 NT-Pro-B Natriuret Pep 1520 H Impressions: Chest X-Ray 04/22/19 23:18 IMPRESSION: Patchy small areas of increased density again noted in the right lung. These are not significantly changed and may represent pneumonia. Follow-up is recommended to ensure resolution. Assessment & Plan - Diagnosis (1) COPD (chronic obstructive pulmonary disease) Qualifiers: COPD type: COPD with acute exacerbation Qualified Code(s): J44.1 - Chronic obstructive pulmonary disease with (acute) exacerbation Is this a current diagnosis for this admission?: Yes (2) Heart failure Qualifiers: Heart failure type: unspecified Heart failure chronicity: unspecified Qualified Code(s): I50.9 - Heart failure, unspecified Is this a current diagnosis for this admission?: Yes (3) Acute exacerbation of CHF (congestive heart failure) Qualifiers: Heart failure type: unspecified Qualified Code(s): I50.9 - Heart failure, unspecified (4) Atrial fibrillation with RVR Is this a current diagnosis for this admission?: Yes - Plan Summary Plan Summary: Conversation with patient regarding her desire to be intubted IF she were to ever need this and she stated she would think about it. She had questions regarding her ability to come off the ventilator as her just last week; questions were answered to the best of this case management assistant ability stating that there were no guarantees but with her advanced lung disease it would be more difficult to wean her from the ventilator. Pt agreed to think about it and talk with her nurse when she has a decision or ask for this ADVERTISING COPYWRITER, her nurse of doctor if she has any questions. Pt tated she was very anxious and that the ativan that was given earlier in the day helped to calm her down. She denied any pain. Recommendations: * Treat anxiety appropriately - pt reporting anxiety and relief with medication administer IV * Consider PE study if symptoms persist * Follow ABG to avoid over ventilating and decreasing respiratory drive with worsening hypercapnia - adjust BiPAP as needed, goal pulse Ox 88-92% * continued scheduled nebulizer treatments - not PRN * Check serum Phos to assess if hypophosphatemia is a contributing factor to respiratory distress * Based on the GOLD COPD exacerbation guidelines - increased methylprednisolone dose to at least 60mg daily, pt may benefit from a higher dose with her current exacerbation At this time, pt does not meet ICU admission criteria. Please feel free to call with any questions or concerns.
[2019-04-24] MEDS: MELATONIN 3 MG TABLET PO PRN (22:41)
[2019-04-25] MEDS: ACETAMINOPHEN 325 MG TABLET PO PRN ×2 (00:03→04:27)
[2019-04-25] MEDS: IPRATROPIUM/ALBUTEROL 0.5-2.5 MG/3 ML AMPUL NEB SCH ×4 (01:56→20:37)
[2019-04-25] MEDS: VANCOMYCIN HCL 1,250 MG in DEXTROSE 5%-WATER 250 ML IV SCH ×3 (03:22→17:29)
[2019-04-25 05:26] LABS: HEMATOCRIT 27.9 % (36.0-47.0); HEMOGLOBIN 8.9 g/dL (12.0-15.5); MEAN CORPUSCULAR HGB CONC 32.1 g/dL (32.0-36.0); MEAN CORPUSCULAR VOLUME 84 fl (80-97); PLATELET COUNT 316 10^3/uL (150-450); RED BLOOD COUNT 3.31 10^6/uL (3.72-5.28); RED CELL DISTRIBUTION WIDTH 18.8 % (11.5-14.0); WHITE BLOOD COUNT 15.2 10^3/uL (4.0-10.5)
[2019-04-25] MEDS: PANTOPRAZOLE SODIUM 40 MG TABLET.DR PO SCH (05:34)
[2019-04-25] MEDS: LEVOTHYROXINE SODIUM 0.112 MG TABLET PO SCH (05:34)
[2019-04-25] MEDS: ROPINIROLE HCL 2 MG TABLET PO SCH ×3 (05:35→21:15)
[2019-04-25] MEDS: CEFEPIME HCL 2 GM in DEXTROSE 5%-WATER 50 ML IV SCH ×2 (05:35→17:28)
[2019-04-25 05:42] LABS: ANION GAP 5 (5-19); BLOOD UREA NITROGEN 25 mg/dL (7-20); CALCIUM 7.8 mg/dL (8.4-10.2); CARBON DIOXIDE 37 mmol/L (22-30); CHLORIDE 92 mmol/L (98-107); GLUCOSE 161 mg/dL (75-110); POTASSIUM 4.6 mmol/L (3.6-5.0)
[2019-04-25 06:06] LABS: ABSOLUTE LYMPHOCYTES# (MANUAL) 0.6 10^3/uL (0.5-4.7); ABSOLUTE MONOCYTES # (MANUAL) 0.3 10^3/uL (0.1-1.4); BAND NEUTROPHILS % (MANUAL) 4 % (3-5); BASOPHILS % (MANUAL) 0 % (0-2); EOSINOPHILS % (MANUAL) 0 % (0-6); LYMPHOCYTES % (MANUAL) 4 % (13-45); MONOCYTES % (MANUAL) 2 % (3-13); SEGMENTED NEUTROPHILS % (MAN) 90 % (42-78); TOTAL CELLS COUNTED 100
[2019-04-25 06:07] LABS: ANISOCYTOSIS 2+; OVALOCYTES SLIGHT; PLATELET COMMENT ADEQUATE
[2019-04-25 06:25] LABS: ARTERIAL BLOOD BASE EXCESS 10.6 mmol/L; ARTERIAL BLOOD O2 SATURATION 93.4 % (94-98); ARTERIAL BLOOD PCO2 66.6 mmHg (35-45); ARTERIAL BLOOD PH 7.37 (7.35-7.45); ARTERIAL BLOOD PO2 71.2 mmHg (80-100)
[2019-04-25 06:27] LABS: ARTERIAL BLOOD FIO2 30%
[2019-04-25] MEDS: ASPIRIN 81 MG TABLET, ENT COATED PO SCH (09:07)
[2019-04-25] MEDS: FERROUS SULFATE 325 MG TABLET PO SCH (09:07)
[2019-04-25] MEDS: CETIRIZINE 10 MG TABLET PO SCH (09:07)
[2019-04-25] MEDS: ROFLUMILAST 500 MCG TABLET PO SCH (09:07)
[2019-04-25] MEDS: ATORVASTATIN CALCIUM 20 MG TABLET PO SCH (09:07)
[2019-04-25] MEDS: CITALOPRAM HYDROBROMIDE 20 MG TABLET PO SCH (09:07)
[2019-04-25] MEDS: APIXABAN 5 MG TABLET PO SCH ×2 (09:07→17:28)
[2019-04-25] MEDS: BUSPIRONE HCL 10 MG TABLET PO SCH ×2 (09:07→21:15)
[2019-04-25] MEDS: POTASSIUM CHLORIDE 10 MEQ TABLET.ER PO SCH ×2 (09:07→21:15)
[2019-04-25] MEDS: MAGNESIUM OXIDE 400 MG TABLET PO SCH (09:07)
[2019-04-25] MEDS: FUROSEMIDE 80 MG TABLET PO SCH (09:08)
[2019-04-25] MEDS: METHYLPREDNISOLONE INJ 40 MG/1 ML SDV IV SCH ×2 (09:08→21:15)
[2019-04-25] MEDS: FLUTICASONE NASAL SPRAY 50 MCG/SPRY 120 SPRAY/16 GM NASL SCH ×2 (09:08→21:14)
[2019-04-25] MEDS: CYANOCOBALAMIN (VITAMIN B-12) 1,000 MCG TABLET PO SCH (09:09)
--- NOTE | 2019-04-25 09:47 | PDOC PROGRESS REPORT ---
Subjective Progress Note for:: 04/25/19 Subjective:: Breathing comfortably this morning. She has not touched her breakfast tray and she states she is not hungry. She still complains of some rib cage discomfort and headache that she believes is related to coughing. We did review her CODE STATUS and she does want to remain full code with intubation if required despite her end-stage COPD. Reason For Visit: COPD EXACERBATION PNEUMONIA Physical Exam Vital Signs: Temp Pulse Resp BP Pulse Ox 97.4 F 80 31 H 105/58 L 99 04/25/19 07:42 04/25/19 08:02 04/25/19 08:02 04/25/19 07:42 04/25/19 08:02 Intake & Output 04/24/19 04/25/19 04/26/19 06:59 06:59 06:59 Intake Total 1280 1306 Output Total 1680 1300 Balance -400 6 Weight 101.3 kg 102.1 kg General appearance: PRESENT: no acute distress, cooperative, well-developed, other - Resting on BiPAP. Head exam: PRESENT: atraumatic, normocephalic Eye exam: PRESENT: conjunctiva pale. ABSENT: scleral icterus Ear exam: PRESENT: normal external ear exam. ABSENT: bleeding, drainage Mouth exam: PRESENT: other - BiPAP mask in place Respiratory exam: PRESENT: chest wall tenderness, decreased breath sounds - At bases, prolonged expiratory phas, rales - Possible faint rales. Difficult to auscultate due to body habitus., unlabored, wheezes - Faint expiratory wheeze Cardiovascular exam: PRESENT: irregular rhythm. ABSENT: diastolic murmur, systolic murmur - Did not detect a murmur but heart sounds slightly decreased due to body habitus. GI/Abdominal exam: PRESENT: normal bowel sounds, soft, other - Protuberant abdomen. ABSENT: distended, guarding, tenderness Rectal exam: PRESENT: deferred Extremities exam: ABSENT: joint swelling, pedal edema Musculoskeletal exam: PRESENT: normal inspection. ABSENT: deformity Neurological exam: PRESENT: alert, awake, oriented to person, oriented to place, oriented to time, oriented to situation, CN II-XII grossly intact Psychiatric exam: PRESENT: flat affect. ABSENT: agitated, anxious Focused psych exam: ABSENT: delusional, paranoid, restlessness Skin exam: PRESENT: dry, normal color, warm. ABSENT: rash Results Laboratory Results: 04/25/19 04:51 04/25/19 04:51 04/24/19 04/24/19 04/24/19 09:36 10:00 18:09 WBC RBC Hgb Hct MCV MCH MCHC RDW Plt Count Seg Neutrophils % Carbonic Acid 1.74 H 2.06 H HCO3/H2CO3 Ratio 20:1 19:1 ABG pH 7.42 7.39 ABG pCO2 57.8 H 68.4 H ABG pO2 101.7 H 80.3 ABG HCO3 36.5 H 40.2 H ABG O2 Saturation 97.6 95.3 ABG Base Excess 10.4 12.7 FiO2 50% 30% Sodium Potassium Chloride Carbon Dioxide Anion Gap BUN Creatinine 0.57 Est GFR ( Amer) > 60 Glucose Lactic Acid Calcium 04/24/19 04/25/19 04/25/19 20:23 04:51 04:51 WBC 15.2 H RBC 3.31 L Hgb 8.9 L Hct 27.9 L MCV 84 MCH 27.0 MCHC 32.1 RDW 18.8 H Plt Count 316 Seg Neutrophils % Not Reportable Carbonic Acid HCO3/H2CO3 Ratio ABG pH ABG pCO2 ABG pO2 ABG HCO3 ABG O2 Saturation ABG Base Excess FiO2 Sodium 133.5 L Potassium 4.6 Chloride 92 L Carbon Dioxide 37 H Anion Gap 5 BUN 25 H Creatinine 0.59 Est GFR ( Amer) > 60 Glucose 161 H Lactic Acid 1.3 Calcium 7.8 L 04/25/19 06:11 WBC RBC Hgb Hct MCV MCH MCHC RDW Plt Count Seg Neutrophils % Carbonic Acid 2.00 H HCO3/H2CO3 Ratio 19:1 ABG pH 7.37 ABG pCO2 66.6 H ABG pO2 71.2 L ABG HCO3 38.0 H ABG O2 Saturation 93.4 L ABG Base Excess 10.6 FiO2 30% Sodium Potassium Chloride Carbon Dioxide Anion Gap BUN Creatinine Est GFR ( Amer) Glucose Lactic Acid Calcium 04/22/19 23:10 Troponin I < 0.012 NT-Pro-B Natriuret Pep 1520 H Impressions: Chest X-Ray 04/22/19 23:18 IMPRESSION: Patchy small areas of increased density again noted in the right lung. These are not significantly changed and may represent pneumonia. Follow-up is recommended to ensure resolution. Assessment and Plan - Diagnosis (2) COPD exacerbation Is this a current diagnosis for this admission?: Yes (3) Pneumonia Qualifiers: Pneumonia type: due to unspecified organism Laterality: right Lung location: lower lobe of lung Qualified Code(s): J18.9 - Pneumonia, unspecified organism Is this a current diagnosis for this admission?: Yes (4) Anxiety and depression Is this a current diagnosis for this admission?: Yes (5) HTN (hypertension) Qualifiers: Hypertension type: essential hypertension Qualified Code(s): I10 - Ess ential (primary) hypertension Is this a current diagnosis for this admission?: Yes (6) Hypothyroidism Qualifiers: Hypothyroidism type: unspecified Qualified Code(s): E03.9 - Hypothyroidism, unspecified Is this a current diagnosis for this admission?: Yes (7) Longstanding persistent atrial fibrillation Is this a current diagnosis for this admission?: Yes (8) Hypercholesterolemia Is this a current diagnosis for this admission?: Yes - Plan Summary Summary: 04/25/2019 The patient was very tachypneic yesterday. It seems that this could be anxiety driven. She is on antibiotic therapy nebulizers as well as systemic steroids for her pneumonia and exacerbation of COPD with respiratory failure. She has morphine and lorazepam ordered if she gets very tachypneic and anxious. We are trying to wean her from BiPAP. She is on 40 mg of Solu-Medrol every 12 hours and this may need to be adjusted. She is also on Daliresp. Her recently . There was some question about her CODE STATUS and today she confirmed that she wishes to remain a full code at this time. Her hypertension is reasonably controlled. She is currently on furosemide with potassium supplement Her longstanding atrial fibrillation is pacemaker controlled. She is on anticoagulation. She is still on Celexa and BuSpar for anxiety with depression. Atorvastatin for hypercholesterolemia. We will continue current management. Attempt to wean from BiPAP as tolerated. - Time Time Spent with patient: 15-24 minutes Medications reviewed and adjusted accordingly: Yes
[2019-04-25 10:56] LABS: ALBUMIN 2.6 g/dL (3.5-5.0); PHOSPHORUS 3.2 mg/dL (2.5-4.5)
[2019-04-25] MEDS: MORPHINE SULFATE 10 MG/ML INJ IV PRN ×2 (11:48→21:14)
[2019-04-26] MEDS: VANCOMYCIN HCL 1,250 MG in DEXTROSE 5%-WATER 250 ML IV SCH (01:48)
[2019-04-26] MEDS: IPRATROPIUM/ALBUTEROL 0.5-2.5 MG/3 ML AMPUL NEB SCH ×6 (02:07→23:21)
[2019-04-26] MEDS: MORPHINE SULFATE 10 MG/ML INJ IV PRN ×3 (03:24→20:41)
[2019-04-26] MEDS: PANTOPRAZOLE SODIUM 40 MG TABLET.DR PO SCH (06:13)
[2019-04-26] MEDS: ROPINIROLE HCL 2 MG TABLET PO SCH ×3 (06:13→22:48)
[2019-04-26] MEDS: LEVOTHYROXINE SODIUM 0.112 MG TABLET PO SCH (06:13)
[2019-04-26] MEDS: CEFEPIME HCL 2 GM in DEXTROSE 5%-WATER 50 ML IV SCH ×2 (06:13→18:06)
[2019-04-26 06:16] LABS: HEMATOCRIT 28.1 % (36.0-47.0); HEMOGLOBIN 9.1 g/dL (12.0-15.5); MEAN CORPUSCULAR HEMOGLOBIN 27.1 pg (27.0-33.4); MEAN CORPUSCULAR HGB CONC 32.4 g/dL (32.0-36.0); MEAN CORPUSCULAR VOLUME 84 fl (80-97); PLATELET COUNT 334 10^3/uL (150-450); RED BLOOD COUNT 3.36 10^6/uL (3.72-5.28); WHITE BLOOD COUNT 14.3 10^3/uL (4.0-10.5)
[2019-04-26 06:35] LABS: BLOOD UREA NITROGEN 27 mg/dL (7-20); CALCIUM 7.9 mg/dL (8.4-10.2); CARBON DIOXIDE 36 mmol/L (22-30); GLUCOSE 144 mg/dL (75-110)
[2019-04-26 06:41] LABS: CHLORIDE 91 mmol/L (98-107)
[2019-04-26 06:42] LABS: ANION GAP 5 (5-19)
[2019-04-26 06:45] LABS: ABSOLUTE LYMPHOCYTES# (MANUAL) 0.1 10^3/uL (0.5-4.7); ABSOLUTE MONOCYTES # (MANUAL) 0.9 10^3/uL (0.1-1.4); BASOPHILS % (MANUAL) 0 % (0-2); EOSINOPHILS % (MANUAL) 0 % (0-6); LYMPHOCYTES % (MANUAL) 1 % (13-45); MONOCYTES % (MANUAL) 6 % (3-13); SEGMENTED NEUTROPHILS % (MAN) 93 % (42-78); TOTAL CELLS COUNTED 100
[2019-04-26 06:46] LABS: TOXIC GRANULATION 1+; TOXIC VACUOLATION PRESENT
[2019-04-26 06:47] LABS: ANISOCYTOSIS 2+; OVALOCYTES SLIGHT; PLATELET COMMENT ADEQUATE; POIKILOCYTOSIS SLIGHT
[2019-04-26 08:43] LABS: ARTERIAL BLOOD BASE EXCESS 8.9 mmol/L; ARTERIAL BLOOD H2CO3 1.54 mmol/L (1.05-1.35); ARTERIAL BLOOD HCO3 34.2 mmol/L (20-24); ARTERIAL BLOOD O2 SATURATION 95.7 % (94-98); ARTERIAL BLOOD PCO2 51.3 mmHg (35-45); ARTERIAL BLOOD PH 7.44 (7.35-7.45); ARTERIAL BLOOD PO2 77.3 mmHg (80-100); ARTERIAL BLOOD TOTAL CO2 35.8 mmol/L (21-25)
[2019-04-26 08:44] LABS: ARTERIAL BLOOD FIO2 30%
[2019-04-26] MEDS: LORAZEPAM INJ 2 MG/1 ML VIAL IV PRN (09:07)
[2019-04-26] MEDS: CETIRIZINE 10 MG TABLET PO SCH (09:25)
[2019-04-26] MEDS: FUROSEMIDE 80 MG TABLET PO SCH (09:26)
[2019-04-26] MEDS: FERROUS SULFATE 325 MG TABLET PO SCH (09:27)
[2019-04-26] MEDS: CYANOCOBALAMIN (VITAMIN B-12) 1,000 MCG TABLET PO SCH (09:27)
[2019-04-26] MEDS: POTASSIUM CHLORIDE 10 MEQ TABLET.ER PO SCH ×2 (09:27→22:48)
[2019-04-26] MEDS: ASPIRIN 81 MG TABLET, ENT COATED PO SCH (09:27)
[2019-04-26] MEDS: CITALOPRAM HYDROBROMIDE 20 MG TABLET PO SCH (09:28)
[2019-04-26] MEDS: ROFLUMILAST 500 MCG TABLET PO SCH (09:28)
[2019-04-26] MEDS: BUSPIRONE HCL 10 MG TABLET PO SCH ×2 (09:29→22:48)
[2019-04-26] MEDS: MAGNESIUM OXIDE 400 MG TABLET PO SCH (09:29)
[2019-04-26] MEDS: APIXABAN 5 MG TABLET PO SCH ×2 (09:29→17:56)
[2019-04-26] MEDS: ATORVASTATIN CALCIUM 20 MG TABLET PO SCH (09:29)
[2019-04-26] MEDS: METHYLPREDNISOLONE INJ 40 MG/1 ML SDV IV SCH ×3 (09:30→22:48)
[2019-04-26] MEDS: FLUTICASONE NASAL SPRAY 50 MCG/SPRY 120 SPRAY/16 GM NASL SCH ×2 (09:32→22:49)
--- NOTE | 2019-04-26 11:20 | PDOC PROGRESS REPORT ---
Subjective Progress Note for:: 04/26/19 Subjective:: The patient is still very congested. She still requires constant use of BiPAP. Repeat chest x-ray shows worsening infiltrates at lung bases. Reason For Visit: COPD EXACERBATION PNEUMONIA Physical Exam Vital Signs: Temp Pulse Resp BP Pulse Ox 97.4 F 87 20 101/64 97 04/26/19 07:39 04/26/19 08:28 04/26/19 08:28 04/26/19 07:39 04/26/19 08:28 Intake & Output 04/25/19 04/26/19 04/27/19 06:59 06:59 06:59 Intake Total 1306 1160 50 Output Total 1300 800 Balance 6 360 50 Weight 102.1 kg 100.7 kg General appearance: PRESENT: other - Moderate distress. Still on BiPAP. Head exam: PRESENT: atraumatic, normocephalic Neck exam: ABSENT: carotid bruit, lymphadenopathy, thyromegaly, tracheostomy Respiratory exam: PRESENT: rales, symmetrical, tachypnea, wheezes - Expiratory wheezes bilaterally. ABSENT: rhonchi Cardiovascular exam: PRESENT: RRR, +S1, +S2 GI/Abdominal exam: PRESENT: normal bowel sounds, soft. ABSENT: distended, guarding, tenderness Rectal exam: PRESENT: deferred Extremities exam: PRESENT: pedal edema Neurological exam: PRESENT: alert, awake, oriented to person, oriented to place, oriented to situation, CN II-XII grossly intact Psychiatric exam: PRESENT: appropriate affect - Affect reflects her current clinical state. ABSENT: agitated, anxious Skin exam: PRESENT: dry, normal color, warm. ABSENT: rash Results Laboratory Results: 04/26/19 06:02 04/26/19 06:02 04/26/19 04/26/19 04/26/19 06:02 06:02 08:25 WBC 14.3 H RBC 3.36 L Hgb 9.1 L Hct 28.1 L MCV 84 MCH 27.1 MCHC 32.4 RDW 19.0 H Plt Count 334 Seg Neutrophils % Not Reportable Carbonic Acid 1.54 H HCO3/H2CO3 Ratio 22:1 ABG pH 7.44 ABG pCO2 51.3 H ABG pO2 77.3 L ABG HCO3 34.2 H ABG O2 Saturation 95.7 ABG Base Excess 8.9 FiO2 30% Sodium 132.2 L Potassium 5.0 Chloride 91 L Carbon Dioxide 36 H Anion Gap 5 BUN 27 H Creatinine 0.63 Est GFR ( Amer) > 60 Glucose 144 H Calcium 7.9 L Magnesium 2.4 H 04/23/19 08:30 Sputum Gram Stain - Final 04/23/19 08:30 Sputum Sputum Culture - Final C.albicans/C.dubliniensis Normal Rhea 04/22/19 23:10 Troponin I < 0.012 NT-Pro-B Natriuret Pep 1520 H Impressions: Chest X-Ray 04/22/19 23:18 IMPRESSION: Patchy small areas of increased density again noted in the right lung. These are not significantly changed and may represent pneumonia. Follow-up is recommended to ensure resolution. Assessment and Plan - Diagnosis (1) Acute respiratory failure with hypoxia and hypercapnia Is this a current diagnosis for this admission?: Yes Plan: 04/26/2019 PCO2 is improved from yesterday but still elevated. It was normal on admission. Pulmonary infiltrates appear worse. I will add back vancomycin. Phyllis present on sputum culture however amounts are quite low and this is not likely a primary pathogen. Is also possible that there is a cardiac component. We will continue BiPAP as we try and stabilize her respiratory function. (2) COPD exacerbation Is this a current diagnosis for this admission?: Yes Plan: Patient with acute respiratory failure with some hypercapnia noted on ABG this morning. Requiring BiPAP continuously. Will decrease FiO2 and maintain on BiPAP. We will try to place on high flow nasal cannula at a high flow rate at least when eating. Solu-Medrol 40 mg every 12. Frequent nebulizer treatments. 04/26/2019 I have increased the frequency of the scheduled nebulizers. I have increased the Solu-Medrol to 40 mg every 8 hours. Continue BiPAP at this point. (3) Pneumonia Qualifiers: Pneumonia type: due to unspecified organism Laterality: right Lung location: lower lobe of lung Qualified Code(s): J18.9 - Pneumonia, unspecified organism Is this a current diagnosis for this admission?: Yes Plan: There was concern for potential healthcare associated pneumonia given recent hospitalization however she was readmitted about 1 day after discharge and may just be that she requires prolonged antibiotic course for treatment of the very same pneumonia. Continue IV vancomycin and cefepime. Follow-up sputum cultures. Blood cultures negative so far. Besides initial reading of 100.8 on admission, fever seems to have resolved. 04/26/2019 I have added back vancomycin for broader spectrum coverage in light of the fact that the bilateral pulmonary infiltrates had worsened. Sputum culture showed Phyllis but this is not likely the primary pathogen. I expect other bacterial presents. Possibly strep but it certainly could be gram-positive or gram- negative. (4) Anxiety and depression Is this a current diagnosis for this admission?: Yes Plan: 04/26/2019 Anxiety will certainly drive some of her breathing difficulties. She is already on BuSpar and Celexa. PRN lorazepam is also available as is PRN morphine. (5) HTN (hypertension) Qualifiers: Hypertension type: essential hypertension Qualified Code(s): I10 - Essential (primary) hypertension Is this a current diagnosis for this admission?: Yes Plan: 04/26/2019 Blood pressures are normal to slightly low. I did increase the diuretics as her urine output had decreased slightly. We will continue to monitor the patient on telemetry as well as monitor her vital signs. (6) Hypothyroidism Qualifiers: Hypothyroidism type: unspecified Qualified Code(s): E03.9 - Hypothyroidism, unspecified Is this a current diagnosis for this admission?: Yes Plan: 04/26/2019 Continue levothyroxine (7) Longstanding persistent atrial fibrillation Is this a current diagnosis for this admission?: Yes Plan: 04/26/2019 Remains in atrial fibrillation with good rate control. Continue to monitor on telemetry. Continue current medication regimen. Continue Eliquis for anticoagulation. (8) Hypercholesterolemia Is this a current diagnosis for this admission?: Yes Plan: 04/26/2019 Continue statin therapy. (9) Heart failure Qualifiers: Heart failure type: unspecified Heart failure chronicity: unspecified Qualified Code(s): I50.9 - Heart failure, unspecified Is this a current diagnosis for this admission?: Yes Plan: 04/26/2019 There is a possibility of heart failure. Echocardiogram in 2017 showed normal ejection fraction and could not comment on the presence of diastolic failure or not. She does have persistent atrial fibrillation and this certainly could have a component of heart failure. I will check an echocardiogram. Have increased her diuretics and I will add albumin to help increase oncotic pressure and improve diuresis. - Plan Summary Summary: 04/25/2019 The patient was very tachypneic yesterday. It seems that this could be anxiety driven. She is on antibiotic therapy nebulizers as well as systemic steroids for her pneumonia and exacerbation of COPD with respiratory failure. She has morphine and lorazepam ordered if she gets very tachypneic and anxious. We are trying to wean her from BiPAP. She is on 40 mg of Solu-Medrol every 12 hours and this may need to be adjusted. She is also on Daliresp. Her recently . There was some question about her CODE STATUS and today she confirmed that she wishes to remain a full code at this time. Her hypertension is reasonably controlled. She is currently on furosemide with potassium supplement Her longstanding atrial fibrillation is pacemaker controlled. She is on anticoagulation. She is still on Celexa and BuSpar for anxiety with depression. Atorvastatin for hypercholesterolemia. We will continue current management. Attempt to wean from BiPAP as tolerated. 04/26/2019 Increase Solu-Medrol, add budesonide, add Mucinex increase DuoNebs - Time Time Spent with patient: 15-24 minutes Medications reviewed and adjusted accordingly: Yes
[2019-04-26] MEDS: IPRATROPIUM/ALBUTEROL 0.5-2.5 MG/3 ML AMPUL NEB PRN (11:51)
--- NOTE | 2019-04-26 13:38 | RADIOLOGY REPORT (SQ) ---
EXAM DESCRIPTION: CHEST SINGLE VIEW COMPLETED DATE/TIME: 04/26/2019 1:16 pm REASON FOR STUDY: Respiratory failure COMPARISON: PA and lateral views of the chest from 04/22/2019 EXAM PARAMETERS: NUMBER OF VIEWS: One view. TECHNIQUE: An AP view of the chest was obtained. RADIATION DOSE: NA LIMITATIONS: None. FINDINGS: LUNGS AND PLEURA: Increased basilar predominant opacities that obscure the contours of the hemidiaphragms and blunt the costophrenic sulci. MEDIASTINUM AND HILAR STRUCTURES: Stable mediastinal and hilar contours. HEART AND VASCULAR STRUCTURES: Stable enlarged cardiac silhouette. BONES: No acute findings. HARDWARE: Intact left subclavian vein approach single- lead transvenous pacemaker. OTHER: No other finding. IMPRESSION: Increased bilateral basilar predominant pleural and parenchymal opacities. Differential considerations include multifocal pneumonia and CHF/ pulmonary edema. TECHNICAL DOCUMENTATION: JOB ID: [id number] 2010 [employer]- All Rights Reserved Reading location - IP/workstation name: [email or web address]
[2019-04-26] MEDS ORDERED: VANCOMYCIN HCL 0 MG in DEXTROSE 5%-WATER 250 ML IV NR (16:45)
[2019-04-26] MEDS ORDERED: FUROSEMIDE INJ/PF 20 MG/2 ML SDV IV ONE (18:00)
[2019-04-26] MEDS ORDERED: VANCOMYCIN HCL 1,250 MG in DEXTROSE 5%-WATER 250 ML IV ONE (19:30)
[2019-04-26] MEDS: BUDESONIDE NEB 0.5 MG/2 ML AMPUL NEB SCH (20:07)
[2019-04-26] MEDS: GUAIFENESIN 600 MG TABLET.SA PO SCH (22:48)
[2019-04-27] MEDS: ACETAMINOPHEN 325 MG TABLET PO PRN ×2 (00:13→11:31)
[2019-04-27] MEDS: VANCOMYCIN HCL 1,000 MG in DEXTROSE 5%-WATER 250 ML IV SCH ×2 (01:09→11:32)
[2019-04-27] MEDS: IPRATROPIUM/ALBUTEROL 0.5-2.5 MG/3 ML AMPUL NEB SCH ×5 (04:06→20:34)
[2019-04-27 04:51] LABS: HEMATOCRIT 28.2 % (36.0-47.0); HEMOGLOBIN 9.2 g/dL (12.0-15.5); MEAN CORPUSCULAR HEMOGLOBIN 27.2 pg (27.0-33.4); MEAN CORPUSCULAR HGB CONC 32.6 g/dL (32.0-36.0); MEAN CORPUSCULAR VOLUME 84 fl (80-97); PLATELET COUNT 308 10^3/uL (150-450); RED BLOOD COUNT 3.38 10^6/uL (3.72-5.28); RED CELL DISTRIBUTION WIDTH 18.7 % (11.5-14.0); WHITE BLOOD COUNT 13.5 10^3/uL (4.0-10.5)
[2019-04-27 05:18] LABS: ALBUMIN 2.8 g/dL (3.5-5.0); ALKALINE PHOSPHATASE 121 U/L (38-126); ANION GAP 9 (5-19); ASPARTATE AMINO TRANSFERASE 116 U/L (14-36); BILIRUBIN,DIRECT 0.3 mg/dL (0.0-0.4); BILIRUBIN,TOTAL 0.4 mg/dL (0.2-1.3); BLOOD UREA NITROGEN 36 mg/dL (7-20); CALCIUM 7.8 mg/dL (8.4-10.2); CARBON DIOXIDE 34 mmol/L (22-30); CHLORIDE 89 mmol/L (98-107); GLUCOSE 172 mg/dL (75-110); TOTAL PROTEIN 5.7 g/dL (6.3-8.2)
[2019-04-27 05:20] LABS: ABSOLUTE LYMPHOCYTES# (MANUAL) 0.3 10^3/uL (0.5-4.7); ABSOLUTE MONOCYTES # (MANUAL) 0.1 10^3/uL (0.1-1.4); BASOPHILS % (MANUAL) 0 % (0-2); EOSINOPHILS % (MANUAL) 0 % (0-6); LYMPHOCYTES % (MANUAL) 2 % (13-45); MONOCYTES % (MANUAL) 1 % (3-13); SEGMENTED NEUTROPHILS % (MAN) 97 % (42-78); TOTAL CELLS COUNTED 100
[2019-04-27 05:21] LABS: ANISOCYTOSIS 2+; PLATELET COMMENT ADEQUATE
[2019-04-27] MEDS: METHYLPREDNISOLONE INJ 40 MG/1 ML SDV IV SCH ×3 (06:01→21:16)
[2019-04-27] MEDS: CEFEPIME HCL 2 GM in DEXTROSE 5%-WATER 50 ML IV SCH ×2 (06:01→18:21)
[2019-04-27] MEDS: PANTOPRAZOLE SODIUM 40 MG TABLET.DR PO SCH (06:02)
[2019-04-27] MEDS: LEVOTHYROXINE SODIUM 0.112 MG TABLET PO SCH (06:02)
[2019-04-27] MEDS: ROPINIROLE HCL 2 MG TABLET PO SCH ×3 (06:02→21:16)
[2019-04-27] MEDS: IPRATROPIUM/ALBUTEROL 0.5-2.5 MG/3 ML AMPUL NEB PRN (06:55)
[2019-04-27] MEDS: BUDESONIDE NEB 0.5 MG/2 ML AMPUL NEB SCH ×2 (08:03→20:34)
[2019-04-27] MEDS: MORPHINE SULFATE 10 MG/ML INJ IV PRN ×2 (10:17→19:27)
[2019-04-27] MEDS: ATORVASTATIN CALCIUM 20 MG TABLET PO SCH (11:22)
[2019-04-27] MEDS: CYANOCOBALAMIN (VITAMIN B-12) 1,000 MCG TABLET PO SCH (11:22)
[2019-04-27] MEDS: BUSPIRONE HCL 10 MG TABLET PO SCH ×2 (11:22→21:16)
[2019-04-27] MEDS: APIXABAN 5 MG TABLET PO SCH ×2 (11:24→18:19)
[2019-04-27] MEDS: GUAIFENESIN 600 MG TABLET.SA PO SCH ×2 (11:24→21:16)
[2019-04-27] MEDS: FERROUS SULFATE 325 MG TABLET PO SCH (11:24)
[2019-04-27] MEDS: CETIRIZINE 10 MG TABLET PO SCH (11:24)
[2019-04-27] MEDS: POTASSIUM CHLORIDE 10 MEQ TABLET.ER PO SCH ×2 (11:24→21:16)
[2019-04-27] MEDS: ROFLUMILAST 500 MCG TABLET PO SCH (11:25)
[2019-04-27] MEDS: ASPIRIN 81 MG TABLET, ENT COATED PO SCH (11:25)
[2019-04-27] MEDS: CITALOPRAM HYDROBROMIDE 20 MG TABLET PO SCH (11:25)
[2019-04-27] MEDS: FUROSEMIDE 40 MG TABLET PO SCH ×2 (11:26→18:20)
[2019-04-27] MEDS: FLUTICASONE NASAL SPRAY 50 MCG/SPRY 120 SPRAY/16 GM NASL SCH ×2 (11:29→21:16)
[2019-04-27] MEDS: ALBUMIN HUMAN 12.5 GM/50 ML RTUINJ IV SCH ×2 (11:29→14:03)
--- NOTE | 2019-04-27 14:32 | Progress Note ---
Provider Note Provider Note: [facility] ID Telephone Advice Consultation: Chart reviewed. Patient is a 69-year-old woman with multiple comorbid cond itions including end stage COPD on home oxygen, history of PE, CHF, hypothyroidism, depression, GERD, atrial fibrillation, hypertension. Patient was recently admitted to the hospital in March due to pneumonia. She received 5 days of vancomycin and cefepime. She wa discharged home and returned 24 hrs later due to worsening shortness of breath. She was receiving prednisone as well. On admission she had leukocytosis and required BiPAP. BNP >1500 and CXR demonstrating patchy infiltrates in right lung may represent infection vs edema. She has been on vancomycin and cefepime. It is not clear about traveling history or if sick contacts at home. Not known any animal exposures or if she had any GI symptoms prior to this presentation. Blood cultures are negative and sputum culture positive for yeast. Allergies: hydromorphone HCl [From Dilaudid] Allergy (Severe, Verified 04/13/19 21:13) Passed out Medications: Albuterol Sulfate [Proair HFA Inhalation Aerosol 8.5 gm MDI] 2 puff IH Q4HP PRN 10/30/18 Aspirin [Ecotrin 81 mg EC Tablet] 81 mg PO DAILY 10/30/18 Budesonide/Formoterol Fumarate [Symbicort HFA 160-4.5 mcg Inhaler 6 gm] 2 puff IH Q12 10/30/18 Citalopram Hydrobromide [Celexa 40 mg Tablet] 40 mg PO DAILY 10/30/18 Pantoprazole Sodium [Protonix [address] Tablet] 40 mg PO Q6AM 10/30/18 Roflumilast [Daliresp 500 mcg Tablet] 500 mcg PO DAILY 10/30/18 Ropinirole HCl [Requip 2 mg Tablet] 2 mg PO Q8 10/30/18 Apixaban [Eliquis 5 mg Tablet] 5 mg PO Q12 04/13/19 Buspirone HCl 5 mg PO Q12 04/13/19 Cetirizine HCl [Zyrtec] 10 mg PO DAILY 04/13/19 Furosemide [Lasix 20 mg Tablet] 80 mg PO BIDP PRN 04/13/19 Levothyroxine Sodium [Synthroid 0.112 mg Tablet] 112 mcg PO Q6AM 04/13/19 Magnesium Oxide [Magnesium] 400 mg PO DAILY 04/13/19 Potassium Chloride 20 meq PO BID 04/13/19 Atorvastatin Calcium [Lipitor 20 mg Tablet] 20 mg PO DAILY 04/14/19 Vital Signs: Temp Pulse Resp BP Pulse Ox 97.5 F 87 26 H 108/69 92 04/27/19 11:04 04/27/19 12:24 04/27/19 12:24 04/27/19 11:04 04/27/19 12:24 Intake & Output 04/26/19 04/27/19 04/28/19 06:59 06:59 06:59 Intake Total 1160 1150 50 Output Total 800 1710 Balance 360 -560 50 Weight 100.7 kg 100.4 kg Weight/Height Weight 100.4 kg Height 5 ft 5 in Laboratories: 04/27/19 04:20 04/27/19 04:20 MCV 84 fl (80-97) 04/27/19 04:20 MCH 27.2 pg (27.0-33.4) 04/27/19 04:20 MCHC 32.6 g/dL (32.0-36.0) 04/27/19 04:20 RDW 18.7 % (11.5-14.0) H 04/27/19 04:20 Seg Neutrophils % Not Reportable 04/27/19 04:20 Retic Count (auto) 2.85 % (0.66-2.85) 04/22/19 23:10 Carbonic Acid 1.54 mmol/L (1.05-1.35) H 04/26/19 08:25 HCO3/H2CO3 Ratio 22:1 04/26/19 08:25 ABG pH 7.44 (7.35-7.45) 04/26/19 08:25 ABG pCO2 51.3 mmHg (35-45) H 04/26/19 08:25 ABG pO2 77.3 mmHg (80-100) L 04/26/19 08:25 ABG HCO3 34.2 mmol/L (20-24) H 04/26/19 08:25 ABG O2 Saturation 95.7 % (94-98) 04/26/19 08:25 ABG Base Excess 8.9 mmol/L 04/26/19 08:25 FiO2 30% 04/26/19 08:25 Chloride 89 mmol/L (98-107) L 04/27/19 04:20 Carbon Dioxide 34 mmol/L (22-30) H 04/27/19 04:20 Anion Gap 9 (5-19) 04/27/19 04:20 Est GFR ( Amer) > 60 (>60) 04/27/19 04:20 Glucose 172 mg/dL (75-110) H 04/27/19 04:20 Lactic Acid 1.3 mmol/L (0.7-2.1) 04/24/19 20:23 Calcium 7.8 mg/dL (8.4-10.2) L 04/27/19 04:20 Phosphorus 3.2 mg/dL (2.5-4.5) 04/25/19 04:51 Magnesium 2.4 mg/dL (1.6-2.3) H 04/27/19 04:20 Iron 31.9 ug/dL (37-170) L 04/22/19 23:10 TIBC 272 ug/dL (250-450) 04/22/19 23:10 % Saturation 12 % 04/22/19 23:10 Ferritin 38.40 ng/mL (11.1-264.0) 04/22/19 23:10 Total Bilirubin 0.4 mg/dL (0.2-1.3) 04/27/19 04:20 AST 116 U/L (14-36) H 04/27/19 04:20 Alkaline Phosphatase 121 U/L (38-126) 04/27/19 04:20 Total Protein 5.7 g/dL (6.3-8.2) L 04/27/19 04:20 Albumin 2.8 g/dL (3.5-5.0) L 04/27/19 04:20 Vitamin B12 682.0 pg/mL (239-931) 04/22/19 23:10 Folate 5.98 ng/mL (>2.76) 04/22/19 23:10 04/22/19 04/27/19 23:10 04:20 Troponin I < 0.012 NT-Pro-B Natriuret Pep 1520 H 705 H Microbiology: Blood culture NGTD Resp culture Phyllis, oropharyngeal brandon Radiology: Chest X-Ray 04/26/19 00:00 IMPRESSION: Increased bilateral basilar predominant pleural and parenchymal opacities. Differential considerations include multifocal pneumonia and CHF/ pulmonary edema. Assessment and Recommendations: Patient evaluated due to pneumonia that required hospitalization despite antibiotic therapy. She is afebrile but she has been tachypneic requiring BiPAP. She has received vancomycin and cefepime. Neither MRSA nor Pseudomonas have been isolated. She has not received atypical coverage during this process. Her BNP was also elevated. I believe there might be a component of CHF and atypical pneumonia (viral or bacterial). MRSA was not isolated, can consider to discontinue vancomycin. Zosyn may be a better option for GNR and anaerobes, but due to potential edema, the sodium content on zosyn may cause problems. Can continue cefepime or switch to ertapenem 1g iv daily. May add doxycycline 100 mg bid for atypical infections as Mycoplasma, Legionella, etc. Duration of therapy depends on clinical response, but a minimum of 5 days is reasonable. Brenna Rodríguez MD [facility] ID [phone]
--- NOTE | 2019-04-27 15:53 | PDOC PROGRESS REPORT ---
Subjective Progress Note for:: 04/27/19 Subjective:: The patient seems somewhat better today. Still requiring BiPAP with very limited breaks. An infectious disease consult was requested and in fact Dr. Rodríguez called me. I also ordered an echocardiogram to see if heart failure was a potential component. She does see a cardiac monitor technician within the [facility] and therefore I have requested a consult by cardiology. Reason For Visit: COPD EXACERBATION PNEUMONIA Physical Exam Vital Signs: Temp Pulse Resp BP Pulse Ox 97.5 F 80 26 H 108/69 92 04/27/19 11:04 04/27/19 14:00 04/27/19 12:24 04/27/19 11:04 04/27/19 12:24 Intake & Output 04/26/19 04/27/19 04/28/19 06:59 06:59 06:59 Intake Total 1160 1150 294 Output Total 800 1710 Balance 360 -560 294 Weight 100.7 kg 100.4 kg General appearance: PRESENT: cooperative, mild distress, well-developed, other - Still on BiPAP Head exam: PRESENT: atraumatic, normocephalic Eye exam: PRESENT: conjunctiva pale. ABSENT: scleral icterus Ear exam: PRESENT: normal external ear exam. ABSENT: bleeding, drainage Mouth exam: PRESENT: other - BiPAP mask in place Neck exam: PRESENT: other - Very large neck. Difficult to assess. Respiratory exam: PRESENT: prolonged expiratory phas, rales - Bilateral bases, symmetrical, tachypnea. ABSENT: rhonchi, wheezes Cardiovascular exam: PRESENT: RRR, +S1, +S2 GI/Abdominal exam: PRESENT: normal bowel sounds, soft. ABSENT: distended - Protuberant abdomen, guarding, tenderness Rectal exam: PRESENT: deferred Neurological exam: PRESENT: alert, awake, oriented to person, oriented to place, oriented to time, oriented to situation, CN II-XII grossly intact Psychiatric exam: PRESENT: flat affect. ABSENT: agitated, anxious Skin exam: PRESENT: dry, normal color, warm. ABSENT: rash Results Laboratory Results: 04/27/19 04:20 04/27/19 04:20 04/27/19 04/27/19 04:20 04:20 WBC 13.5 H RBC 3.38 L Hgb 9.2 L Hct 28.2 L MCV 84 MCH 27.2 MCHC 32.6 RDW 18.7 H Plt Count 308 Seg Neutrophils % Not Reportable Sodium 131.8 L Potassium 5.0 Chloride 89 L Carbon Dioxide 34 H Anion Gap 9 BUN 36 H Creatinine 0.90 Est GFR ( Amer) > 60 Glucose 172 H Calcium 7.8 L Magnesium 2.4 H Total Bilirubin 0.4 AST 116 H Alkaline Phosphatase 121 Total Protein 5.7 L Albumin 2.8 L 04/22/19 04/27/19 23:10 04:20 Troponin I < 0.012 NT-Pro-B Natriuret Pep 1520 H 705 H Impressions: Chest X-Ray 04/26/19 00:00 IMPRESSION: Increased bilateral basilar predominant pleural and parenchymal opacities. Differential considerations include multifocal pneumonia and CHF/ pulmonary edema. Assessment and Plan - Diagnosis (1) Acute respiratory failure with hypoxia and hypercapnia Is this a current diagnosis for this admission?: Yes Plan: 04/26/2019 PCO2 is improved from yesterday but still elevated. It was normal on admission. Pulmonary infiltrates appear worse. I will add back vancomycin. Phyllis present on sputum culture however amounts are quite low and this is not likely a primary pathogen. Is also possible that there is a cardiac component. We will continue BiPAP as we try and stabilize her respiratory function. 04/27/2019 Increase the frequency of scheduled nebulizers, add budesonide and increase systemic steroids. Continue BiPAP with attempt to wean as tolerated. (2) COPD exacerbation Is this a current diagnosis for this admission?: Yes Plan: Patient with acute respiratory failure with some hypercapnia noted on ABG this morning. Requiring BiPAP continuously. Will decrease FiO2 and maintain on BiPAP. We will try to place on high flow nasal cannula at a high flow rate at least when eating. Solu-Medrol 40 mg every 12. Frequent nebulizer treatments. 04/26/2019 I have increased the frequency of the scheduled nebulizers. I have increased the Solu-Medrol to 40 mg every 8 hours. Continue BiPAP at this point. 04/27/2019 Continue current management. (3) Pneumonia Qualifiers: Pneumonia type: due to unspecified organism Laterality: right Lung location: lower lobe of lung Qualified Code(s): J18.9 - Pneumonia, unspecified organism Is this a current diagnosis for this admission?: Yes Plan: There was concern for potential healthcare associated pneumonia given recent hospitalization however she was readmitted about 1 day after discharge and may just be that she requires prolonged antibiotic course for treatment of the very same pneumonia. Continue IV vancomycin and cefepime. Follow-up sputum cultures. Blood cultures negative so far. Besides initial reading of 100.8 on admission, fever seems to have resolved. 04/26/2019 I have added back vancomycin for broader spectrum coverage in light of the fact that the bilateral pulmonary infiltrates had worsened. Sputum culture showed Phyllis but this is not likely the primary pathogen. I expect other bacterial presents. Possibly strep but it certainly could be gram-positive or gram- negative. 04/27/2019 After speaking with the infectious disease physician, Dr. Rodríguez, we will discontinue vancomycin and add doxycycline to cover other atypical agents that might be present. (4) Anxiety and depression Is this a current diagnosis for this admission?: Yes Plan: 04/26/2019 Anxiety will certainly drive some of her breathing difficulties. She is already on BuSpar and Celexa. PRN lorazepam is also available as is PRN morphine. 04/27/2019 Continue current regimen (5) HTN (hypertension) Qualifiers: Hypertension type: essential hypertension Qualified Code(s): I10 - Essential (primary) hypertension Is this a current diagnosis for this admission?: Yes Plan: 04/26/2019 Blood pressures are normal to slightly low. I did increase the diuretics as her urine output had decreased slightly. We will continue to monitor the patient on telemetry as well as monitor her vital signs. 04/27/2019 We will need to monitor the patient closely with the increased diuretic dose. We may need to add midodrine to compensate. (6) Hypothyroidism Qualifiers: Hypothyroidism type: unspecified Qualified Code(s): E03.9 - Hypothyroidism, unspecified Is this a current diagnosis for this admission?: Yes Plan: 04/26/2019 Continue levothyroxine 04/27/2019 Continue current dose levothyroxine (7) Longstanding persistent atrial fibrillation Is this a current diagnosis for this admission?: Yes Plan: 04/26/2019 Remains in atrial fibrillation with good rate control. Continue to monitor on telemetry. Continue current medication regimen. Continue Eliquis for anticoagulation. 04/27/2019 The atrial fibrillation is stable. Continue current regimen and continue monitoring on telemetry (8) Hypercholesterolemia Is this a current diagnosis for this admission?: Yes Plan: 04/26/2019 Continue statin therapy. 04/27/2019 As above (9) Heart failure Qualifiers: Heart failure type: unspecified Heart failure chronicity: unspecified Qualified Code(s): I50.9 - Heart failure, unspecified Is this a current diagnosis for this admission?: Yes Plan: 04/26/2019 There is a possibility of heart failure. Echocardiogram in 2017 showed normal ejection fraction and could not comment on the presence of diastolic failure or not. She does have persistent atrial fibrillation and this certainly could have a component of heart failure. I will check an echocardiogram. Have increased her diuretics and I will add albumin to help increase oncotic pressure and improve diuresis. 04/27/2019 Echocardiogram has been ordered. Interpretation is pending. Cardiology consult for Dr. Ansari has been entered. Diuretics increased at this time. - Plan Summary Summary: 04/25/2019 The patient was very tachypneic yesterday. It seems that this could be anxiety driven. She is on antibiotic therapy nebulizers as well as systemic steroids for her pneumonia and exacerbation of COPD with respiratory failure. She has morphine and lorazepam ordered if she gets very tachypneic and anxious. We are trying to wean her from BiPAP. She is on 40 mg of Solu-Medrol every 12 hours and this may need to be adjusted. She is also on Daliresp. Her rece ntly . There was some question about her CODE STATUS and today she confirmed that she wishes to remain a full code at this time. Her hypertension is reasonably controlled. She is currently on furosemide with potassium supplement Her longstanding atrial fibrillation is pacemaker controlled. She is on anticoagulation. She is still on Celexa and BuSpar for anxiety with depression. Atorvastatin for hypercholesterolemia. We will continue current management. Attempt to wean from BiPAP as tolerated. 04/26/2019 The patient's acute hypoxic hypercapnic respiratory failure is not improving significantly. Therefore I will Increase Solu-Medrol, add budesonide, add Mucinex and increase scheduled DuoNebs. I have increased furosemide, ordered an echocardiogram as well as a cardiology consult. Treatment for the hypertension, atrial fibrillation, anxiety and depression as well as hyperlipidemia remain unchanged. - Time Time Spent with patient: 15-24 minutes Medications reviewed and adjusted accordingly: Yes
--- NOTE | 2019-04-27 16:16 | XCELERA REPORT ---
[address] [address] Transthoracic Echocardiogram Report Name: LEVI GIBBONS Age: 69 yrs Gender: Female : 1950 Patient Status: Inpatient Patient Location: [address] [place], [place] [id number] Study Date: 04/27/2019 10:32 AM History: COPD CHF Height: 65 in Weight: 222 lb BSA: 2.1 m2 Procedure: A complete two-dimensional transthoracic echocardiogram was performed (2D, M-mode, spectral and color flow Doppler). The study was technically difficult with many images being suboptimal in quality. Reason For Study: Heart failure Previous Evaluation: No previous studies were available. History: CHF. Shortness of breath. Ordering Physician: LOYD LARA Performed By: Jyotsna Alcala Interpretation Summary The study was technically difficult with many images being suboptimal in quality. Left ventricular systolic function is normal. The Ejection Fraction estimate is 55-60% The right ventricle is normal in size and function. There is a trace to mild amount of mitral regurgitation There is no aortic valve stenosis There is a mild amount of tricuspid regurgitation There is mild pulmonary hypertension by echo There is no pericardial effusion. MMode/2D Measurements & Calculations RVDd: 3.8 cm LVIDd: 4.5 cm FS: 42.2 % Ao root diam: 3.0 cm IVSd: 1.4 cm LVIDs: 2.6 cm EDV(Teich): 92.9 ml Ao root area: 7.0 cm2 LVPWd: 1.4 cm ESV(Teich): 24.8 ml LA dimension: 4.6 cm EF(Teich): 73.3 % Doppler Measurements & Calculations MV E max huyen: MV P1/2t max huyen: Ao V2 max: LV V1 max P.2 cm/sec 137.2 cm/sec 211.7 cm/sec 4.0 mmHg MV A max huyen: MV P1/2t: 57.5 msec Ao max PG: LV V1 max: 33.1 cm/sec MVA(P1/2t): 3.8 cm2 17.9 mmHg 100.2 cm/sec MV E/A: 4.1 MV dec slope: 698.4 cm/sec2 MV dec time: 0.19 sec PA V2 max: TR max huyen: MV P1/2t-pr_phl: 105.6 cm/sec 279.6 cm/sec 57.5 msec PA max P.5 mmHgTR max P.3 mmHg Left Ventricle The left ventricle is grossly normal size. There is moderate to severe concentric left ventricular hypertrophy. Left ventricular systolic function is normal. The Ejection Fraction estimate is 55-60%. The deceleration time of the mitral E wave is shortened, with a value < 160 msec. The transmitral spectral Doppler flow pattern is abnormal for age. Doppler measurements suggest reversible restrictive left ventricular relaxation, which is associated with grade III/IV or moderate diastolic dysfunction. Regional wall motion abnormalities cannot be excluded due to limited visualization. Right Ventricle The right ventricle is normal in size and function. Atria The right atrium is normal. The left atrium is moderately dilated. Interarterial septum not well visualized and not well dopplered. Cannot comment on ASD/PFO presence. Mitral Valve The mitral valve is grossly normal. There is a trace to mild amount of mitral regurgitation. Aortic Valve The aortic valve is sclerotic and shows some degree of functional abnormality. The aortic valve is mildly calcified. The aortic valve is not well visualized secondary to technical limitations. There is no aortic valve stenosis. No aortic regurgitation is present. Tricuspid Valve The tricuspid valve is not well visualized, but is grossly normal. There is a mild amount of tricuspid regurgitation. Right ventricular systolic pressure is estimated to be elevated at 30-40mmHg. There is mild pulmonary hypertension by echo. Pulmonic Valve The pulmonic valve is not well visualized. There is a trace amount of pulmonic regurgitation. Great Vessels The aortic root is not well visualized. Effusions There is no pericardial effusion. : LOYD LARA Anil
[2019-04-27] MEDS: LORAZEPAM INJ 2 MG/1 ML VIAL IV PRN (20:12)
[2019-04-27] MEDS: DOXYCYCLINE HYCLATE 100 MG in DEXTROSE 5%-WATER 250 ML IV SCH (20:16)
[2019-04-28] MEDS: IPRATROPIUM/ALBUTEROL 0.5-2.5 MG/3 ML AMPUL NEB SCH ×6 (00:27→20:20)
[2019-04-28] MEDS: METHYLPREDNISOLONE INJ 40 MG/1 ML SDV IV SCH ×3 (05:10→21:23)
[2019-04-28] MEDS: CEFEPIME HCL 2 GM in DEXTROSE 5%-WATER 50 ML IV SCH (05:10)
[2019-04-28] MEDS: PANTOPRAZOLE SODIUM 40 MG TABLET.DR PO SCH (05:10)
[2019-04-28] MEDS: LEVOTHYROXINE SODIUM 0.112 MG TABLET PO SCH (05:11)
[2019-04-28] MEDS: ROPINIROLE HCL 2 MG TABLET PO SCH ×3 (05:11→21:22)
[2019-04-28] MEDS: DOXYCYCLINE HYCLATE 100 MG in DEXTROSE 5%-WATER 250 ML IV SCH ×2 (06:02→17:48)
[2019-04-28] MEDS: BUDESONIDE NEB 0.5 MG/2 ML AMPUL NEB SCH ×2 (08:24→20:19)
[2019-04-28] MEDS: ACETAMINOPHEN 325 MG TABLET PO PRN (09:56)
[2019-04-28] MEDS ORDERED: ERTAPENEM SODIUM INJ 1 GM VIAL IV SCH (10:00)
[2019-04-28] MEDS: ATORVASTATIN CALCIUM 20 MG TABLET PO SCH (10:05)
[2019-04-28] MEDS: ASPIRIN 81 MG TABLET, ENT COATED PO SCH (10:05)
[2019-04-28] MEDS: ROFLUMILAST 500 MCG TABLET PO SCH (10:05)
[2019-04-28] MEDS: CITALOPRAM HYDROBROMIDE 20 MG TABLET PO SCH (10:05)
[2019-04-28] MEDS: FERROUS SULFATE 325 MG TABLET PO SCH (10:05)
[2019-04-28] MEDS: GUAIFENESIN 600 MG TABLET.SA PO SCH ×2 (10:06→21:22)
[2019-04-28] MEDS: APIXABAN 5 MG TABLET PO SCH ×2 (10:06→17:44)
[2019-04-28] MEDS: CETIRIZINE 10 MG TABLET PO SCH (10:06)
[2019-04-28] MEDS: CYANOCOBALAMIN (VITAMIN B-12) 1,000 MCG TABLET PO SCH (10:06)
[2019-04-28] MEDS: BUSPIRONE HCL 10 MG TABLET PO SCH ×2 (10:06→21:22)
[2019-04-28] MEDS: FUROSEMIDE 40 MG TABLET PO SCH (10:07)
[2019-04-28] MEDS: FLUTICASONE NASAL SPRAY 50 MCG/SPRY 120 SPRAY/16 GM NASL SCH ×2 (10:08→21:22)
[2019-04-28] MEDS: ERTAPENEM SODIUM 1 GM in NORMAL SALINE 50 ML IV SCH (10:30)
[2019-04-28] MEDS ORDERED: ATORVASTATIN CALCIUM 20 MG TABLET PO ONE (10:30)
--- NOTE | 2019-04-28 10:53 | PDOC CONSULTATION ---
Consultation Consult Date: 04/28/19 Attending physician:: LOYD LARA Provider Consulted: JJ JOHNSTON Consult reason:: CHF History of Present Illness Admission Date/PCP: 04/23/19 01:31 AGUSTO AGRAWAL DO Patient complains of: "I don't remember why they brought me here" History of Present Illness: LEVI GIBBONS is a 69 year old female with past medical history significant for longstanding persistent atrial fibrillation status post AV alessandro ablation, history of single-chamber pacemaker for sick sinus syndrome, advanced COPD on home oxygen, chronic diastolic heart failure, obesity, hypertension, hyperlipidemia who is seen today in consultation for evaluation of CHF. Of note the patient had a prolonged hospitalization at [facility] from 01/11/19-02/27/19 and underwent AVN ablation somewhere during that admission. The patient is currently on BiPAP therapy and provides little in the way of significant past medical history. She reports she is unclear why she was brought to the hospital. Today she does endorse shortness of breath but denies chest pain, palpitations, presyncope/syncope. She is unsure if her legs have been swollen recently and does not give a clear history of orthopnea or PND. Last outpatient cardiology note with Dr. Mckenna 04/06/19: Patient presents for follow-up appointment. She is feeling okay. She continues to have shortness of breath. 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 She remains on oxygen. Her palpitations are better since her A. fib ablation. She's had no issues with bleeding. Her only complaints of shortness of breath and fatigue. Some days are better than others. Her volume status is stable, fluctuates marginally. She's compliant with diuretics and occasionally takes an extra Lasi x. No syncope or presyncope. No other palpitations. She's had no chest discomfort. Studies: EKG today done for A. fib personally reviewed shows sinus rhythm with ventricular paced rhythm Echocardiogram May 2018: Normal left ventricular systolic function, no significant valve disease IMPRESSION 1. Persistent atrial fibrillation status post pacemaker placement and AV alessandro ablation 2. Torsades when on dofetilide with hypo-kalemia 3. COPD on home O2 4. Hypertension. 5. Impaired fasting glucose 6. Iron deficiency anemia 7. Myeloproliferative disorder 8. Hypothyroidism Plan: -She is no longer on diltiazem -Hospitalizations when she had torsades was reviewed including discharge summary and studies -She is status post AV alessandro ablation, A. fib symptoms of resolved -She still a substantial shortness of breath secondary to COPD, will consult pulmonology -Continue Eliquis for stroke reduction of A. fib -Continue Lasix for volume status, she appears euvolemic daily weights, sodium and fluid restriction -Continue statin for hyperlipidemia Admitting HPI Dr. Espinosa 04/23/19: "LEVI GIBBONS is a 69 year old female with a past medical history of paroxysmal atrial fibrillation status post permanent pacemaker, oxygen dependent COPD, prednisone dependent chronic bronchitis, obstructive sleep apnea, myelodysplasia with chronic leukocytosis, iron deficiency anemia and morbid o besity. She presents 24 hours following discharge for pneumonia with shortness of breath, fever and cough with productive green sputum prompting evaluation in the emergency room where she is found to have a tachypnea with retractions, worsening leukocytosis from baseline and a new right lung base infiltrate. She receives Zosyn and vancomycin and referred to the hospitalist for admission." Past Medical History Cardiac Medical History: Reports: Atrial Fibrillation, Hypertension, Pulmonary Embolism - 30+yrs ago Denies: Congestive Heart Failure, Coronary Artery Disease, Myocardial Infarction, Hyperlipidema, Peripheral Vascular Disease, Heart Murmur Pulmonary Medical History: Reports: Asthma, Bronchitis, Chronic Obstructive Pul monary Disease (COPD), Pneumonia, Respiratory Failure, Tuberculosis Denies: Sleep Apnea Neurological Medical History: Denies: Seizures Endocrine Medical History: Reports: Hypothyroidism Denies: Diabetes Mellitus Type 1, Diabetes Mellitus Type 2, Hyperthyroidism Renal/ Medical History: Denies: End Stage Renal Disease Malignancy Medical History: Denies: Lung Cancer GI Medical History: Reports: Gastroesophageal Reflux Disease Denies: Cirrhosis, Crohn's Disease, Diverticulitis, Hepatitis, Hiatal Hernia, Ulcerative Colitis Musculoskeltal Medical History: Reports: Arthritis Denies: Fibromyalgia, Gout Skin Medical History: Denies: Eczema, Psoriasis Psychiatric Medical History: Reports: Depression Denies: Bipolar Disorder, Post Traumatic Stress Disorder Hematology: Reports: Anemia - Myelodysplastic syndrome Denies: Sickle Cell Disease, Bleeding Tendencies Infectious Medical History: Denies: Clostridium Difficile, Methicillin-Resistant Staph Aureus Past Surgical History Past Surgical History: Reports: Hysterectomy, Orthopedic Surgery - Carpal tunnel, ganglion cyst, trigger finger, Tubal Ligation Denies: Amputation, Appendectomy, Section, Cholecystectomy, Coronary Artery Bypass Graft, Gastric Bypass Surgery, Herniorrhaphy, Mastectomy, Pacemaker, Tonsillectomy Social History Lives with: Family Smoking Status: Former Smoker Number of Years Smokin Last Time Smoked: 1 year ago Frequency of Alcohol Use: None Hx Recreational Drug Use: No Drugs: None Hx Prescription Drug Abuse: No - Advance Directive Resuscitation Status: Full Code Family History Family History: CAD, COPD, DM, Hypertension. denies: Malignancy Parental Family History Reviewed: Yes Children Family History Reviewed: Yes Sibling(s) Family History Reviewed.: Yes Medication/Allergy Home Medications: Albuterol Sulfate [Proair HFA Inhalation Aerosol 8.5 gm MDI] 2 puff IH Q4HP PRN 10/30/18 Aspirin [Ecotrin 81 mg EC Tablet] 81 mg PO DAILY 10/30/18 Budesonide/Formoterol Fumarate [Symbicort HFA 160-4.5 mcg Inhaler 6 gm] 2 puff IH Q12 10/30/18 Citalopram Hydrobromide [Celexa 40 mg Tablet] 40 mg PO DAILY 10/30/18 Pantoprazole Sodium [Protonix [address] Tablet] 40 mg PO Q6AM 10/30/18 Roflumilast [Daliresp 500 mcg Tablet] 500 mcg PO DAILY 10/30/18 Ropinirole HCl [Requip 2 mg Tablet] 2 mg PO Q8 10/30/18 Cyanocobalamin (Vitamin B-12) [Vitamin B-12 1000 mcg Tablet] 1,000 mcg PO DAILY #30 tablet 11/04/18 Ferrous Sulfate [[place]] 325 mg PO DAILY #30 tablet 11/04/18 Apixaban [Eliquis 5 mg Tablet] 5 mg PO Q12 04/13/19 Buspirone HCl 5 mg PO Q12 04/13/19 Cetirizine HCl [Zyrtec] 10 mg PO DAILY 04/13/19 Furosemide [Lasix 20 mg Tablet] 80 mg PO BIDP PRN 04/13/19 Levothyroxine Sodium [Synthroid 0.112 mg Tablet] 112 mcg PO Q6AM 04/13/19 Magnesium Oxide [Magnesium] 400 mg PO DAILY 04/13/19 Potassium Chloride 20 meq PO BID 04/13/19 Atorvastatin Calcium [Lipitor 20 mg Tablet] 20 mg PO DAILY 04/14/19 Prednisone [Deltasone 20 mg Tablet] 40 mg PO DAILY 4 Days #8 tablet MDD took one dose 04/21/19 Allergies/Adverse Reactions: hydromorphone HCl [From Dilaudid] Allergy (Severe, Verified 04/13/19 21:13) Passed out Review of Systems Review of Systems: 14 systems reviewed and negative except as otherwise noted above in the HPI. However, the patient is giving very little in the way of a clear review of systems today. She provides little historical information today. Physical Exam Vital Signs: Temp Pulse Resp BP Pulse Ox 97.4 F 82 38 H 113/69 88 L 04/28/19 07:54 04/28/19 07:54 04/28/19 07:54 04/28/19 07:54 04/28/19 07:54 Intake & Output 04/27/19 04/28/19 04/29/19 06:59 06:59 06:59 Intake Total 1150 1698 Output Total 1710 950 Balance -560 748 Weight 100.4 kg 99.2 kg Exam: General Appearance: no acute distress, obese, no diaphoresis. Eyes:. Pupils equal round reactive to light, no injection no jaundice. EOMI HENT: atraumatic, BiPAP mask in place over mouth and face. Neck: supple, no masses, no thyromegaly, and able to appreciate JVP secondary to large body habitus. Lungs: Bibasilar inspiratory rales, superior to this with bilateral rhonchi most prominent in the right lung field midway up. No wheezing, currently utilizing BiPAP therapy. Cardiovascular: Palpation of heart: normal PMI, no thrills. Auscultation of Heart: normal rate and rhythm, very difficult to appreciate clear heart sounds on exam today with BiPAP and rhonchorous breath sounds. Carotid pulses: no bruit, normal amplitude. Abdominal aorta: no bruit, normal amplitude. Radial pulses: normal amplitude. Pedal pulses: normal amplitude. Examination of extremities for edema and/or varicosities: normal. No pitting edema on exam today. Abdomen: normal bowel sounds, soft, non-tender, no masses, no hepatomegaly, no splenomegaly. Musculoskeletal: normal movement of all extremities. Extremities: no clubbing, no cyanosis. Integumentary: warm and dry bilaterally with no ulcers. Psychiatric: awake, alert and oriented x 3. Appropriate mood and affect. Results Laboratory Results: 04/27/19 04:20 04/27/19 04:20 04/23/19 00:25 Blood Blood Culture - Final NO GROWTH IN 5 DAYS 04/22/19 23:10 Blood Blood Culture - Final NO GROWTH IN 5 DAYS 04/22/19 04/27/19 23:10 04:20 Troponin I < 0.012 NT-Pro-B Natriuret Pep 1520 H 705 H Medications Acetaminophen (Tylenol 325 Mg Tablet) 650 mg PO Q4HP PRN PRN Reason: pain or temp greater than 101F Stop: 05/23/19 01:16 Last Admin: 04/28/19 09:56 Dose: 650 mg Documented by: DEV MICHEL Indications for Use Document 04/28/19 09:56 ATR (Rec: 04/28/19 09:59 ATR [id number]) Indications for Use Indication for Use Pain Pain Level Pain Scale Used Adult (verbal) Pain Level 4 Non Verbal Pain Queues Moaning,Facial Grimacing Pain Relief Techniques Medication,Position Change Pain Location/Description Pain Location-Side of the Body Bilateral Pain Location Chest Pain Type Acute Pain Description Achy Admin: 04/27/19 11:31 Dose: 650 mg Documented by: JUMANA MICHEL Indications for Use Document 04/27/19 11:31 XAVIER (Rec: 04/27/19 11:31 [employer] [facility] [id number]) Indications for Use Indication for Use Pain Pain Level Pain Scale Used Adult (verbal) Pain Level 4 Non Verbal Pain Queues Facial Grimacing Pain Relief Techniques Medication,Position Change Pain Location/Description Pain Location Head Re-Assess: ANAND Indications for Use Document 04/27/19 12:29 XAVIER (Rec: 04/27/19 13:30 [employer] [facility] [id number]) Indications for Use Indication for Use Pain Pain Level Pain Scale Used Adult (verbal) Pain Level Denies Non Verbal Pain Queues None Noted Admin: 04/27/19 00:13 Dose: 650 mg Documented by: OCTAVIANO MICHEL Indications for Use Document 04/27/19 00:13 ALEJANDRO (Rec: 04/27/19 00:14 STA [id number]) Indications for Use Indication for Use Pain Pain Level Pain Scale Used Adult (verbal) Pain Level 3 Non Verbal Pain Queues None Noted Pain Relief Techniques Medication,Relaxation Techniques Pain Location/Description Pain Location Head Pain Type Acute Pain Description Intermittent,Moderate Re-Assess: ANAND Indications for Use Document 04/27/19 01:09 ALEJANDRO (Rec: 04/27/19 01:09 STA [id number]) Indications for Use Indication for Use Pain Pain Level Pain Scale Used Faces (non-verbal) Pain Level 0 Non Verbal Pain Queues None Noted Admin: 04/25/19 04:27 Dose: 650 mg Documented by: OCTAVIANO MICHEL Indications for Use Document 04/25/19 04:27 STA (Rec: 04/25/19 04:27 STA [id number]) Indications for Use Indication for Use Pain Pain Level Pain Scale Used Adult (verbal) Pain Level 4 Non Verbal Pain Queues None Noted Pain Relief Techniques Medication,Distraction, Relaxation Techniques Pain Location/Description Pain Location Head Pain Type Acute Pain Description Intermittent,Moderate Re-Assess: ANAND Indications for Use Document 04/25/19 05:15 STA (Rec: 04/25/19 05:43 STA [id number]) Indications for Use Indication for Use Pain Pain Level Pain Scale Used Faces (non-verbal) Pain Level 0 Non Verbal Pain Queues None Noted Admin: 04/25/19 00:03 Dose: 650 mg Documented by: OCTAVIANO MICHEL Indications for Use Document 04/25/19 00:03 STA (Rec: 04/25/19 00:03 STA [id number]) Indications for Use Indication for Use Pain Pain Level Pain Scale Used Adult (verbal) Pain Level 5 Non Verbal Pain Queues Restlessness Pain Relief Techniques Medication,Distraction, Relaxation Techniques Pain Location/Description Pain Location Head Pain Type Acute Pain Description Intermittent,Severe Re-Assess: ANAND Indications for Use Document 04/25/19 01:00 STA (Rec: 04/25/19 02:53 STA [id number]) Indications for Use Indication for Use Pain Pain Level Pain Scale Used Faces (non-verbal) Pain Level 0 Non Verbal Pain Queues None Noted Admin: 04/24/19 09:13 Dose: 650 mg Documented by: SUSAN MICHEL Indications for Use Document 04/24/19 09:13 MARCO (Rec: 04/24/19 09:13 JRAilyn [email or web address]) Indications for Use Indication for Use Pain Pain Level Pain Scale Used Adult (verbal) Pain Level 5 Non Verbal Pain Queues None Noted Pain Relief Techniques Medication Pain Location/Description Pain Location Head Pain Type Acute Re-Assess: ANAND Indications for Use Document 04/24/19 10:10 MARCO (Rec: 04/24/19 14:08 JRA [id number]) Indications for Use Indication for Use Pain Pain Level Pain Scale Used Adult (verbal) Pain Level 5 Non Verbal Pain Queues None Noted Pain Relief Techniques Medication Pain Location/Description Pain Location Head Pain Type Acute Admin: 04/24/19 03:02 Dose: 650 mg Documented by: JUSTIN MICHEL Indications for Use Document 04/24/19 03:02 HHO (Rec: 04/24/19 03:03 HHO [id number]) Indications for Use Indication for Use Pain Pain Level Pain Scale Used Adult (verbal) Pain Level 4 Non Verbal Pain Queues Facial Grimacing Pain Relief Techniques Medication Pain Location/Description Pain Location Anterior Pain Location Head Pain Type Acute Pain Description Intermittent,Moderate,Achy Re-Assess: ANAND Indications for Use Document 04/24/19 04:02 HHO (Rec: 04/24/19 06:01 HHO [id number]) Indications for Use Indication for Use Pain Pain Level Pain Scale Used Adult (verbal) Pain Level Denies Non Verbal Pain Queues None Noted Admin: 04/23/19 22:04 Dose: 650 mg Documented by: JUSTIN MICHEL Indications for Use Document 04/23/19 22:04 HHO (Rec: 04/23/19 22:04 HHO [id number]) Indications for Use Indication for Use Pain Pain Level Pain Scale Used Adult (verbal) Pain Level 5 Non Verbal Pain Queues Facial Grimacing Pain Relief Techniques Medication,Room Lighting Adjusted,Room Temperature Adjusted Pain Location/Description Pain Location Anterior Pain Location Head Pain Type Acute Pain Description Intermittent,Severe,Achy Re-Assess: ANAND Indications for Use Document 04/23/19 23:04 HHO (Rec: 04/24/19 02:51 O [id number]) Indications for Use Indication for Use Pain Pain Level Pain Scale Used Adult (verbal) Pain Level Denies Non Verbal Pain Queues None Noted Admin: 04/23/19 11:30 Dose: 650 mg Documented by: MAGNUS MICHEL Indications for Use Document 04/23/19 11:30 ACR (Rec: 04/23/19 11:30 ACR [id number]) Indications for Use Indication for Use Pain Pain Level Pain Scale Used Adult (verbal) Pain Level 2 Non Verbal Pain Queues Restlessness Pain Relief Techniques Medication,Position Change Pain Location/Description Pain Location-Side of the Body Bilateral Pain Location Lower extremity Re-Assess: ANAND Indications for Use Document 04/23/19 12:30 ACR (Rec: 04/23/19 12:33 ACR [id number]) Indications for Use Indication for Use Pain Pain Level Pain Scale Used Adult (verbal) Pain Level Denies Non Verbal Pain Queues None Noted Admin: 04/23/19 06:56 Dose: 650 mg Documented by: JUSTIN MICHEL Indications for Use Document 04/23/19 06:56 HHO (Rec: 04/23/19 07:04 HHO [email or web address]) Indications for Use Indication for Use Pain Pain Level Pain Scale Used Adult (verbal) Pain Level 3 Non Verbal Pain Queues None Noted Pain Relief Techniques Medication Pain Location/Description Pain Location Anterior Pain Location Head Pain Type Acute Pain Description Intermittent,Achy Re-Assess: MAR Indications for Use Document 04/23/19 07:56 ACR (Rec: 04/23/19 10:03 ACR [id number]) Indications for Use Indication for Use Pain Pain Level Pain Scale Used Adult (verbal) Pain Level Denies Non Verbal Pain Queues None Noted Albuterol/Ipratropium (Duoneb 3 Ml Ampul) 3 ml NEB [id number] PRN PRN Reason: SHORTNESS OF BREATH Stop: 05/23/19 03:04 Last Admin: 04/27/19 06:55 Dose: 3 ml Documented by: Admin: 04/26/19 11:51 Dose: 3 ml Documented by: Admin: 04/24/19 15:27 Dose: 3 ml Documented by: Admin: 04/24/19 00:02 Dose: 3 ml Documented by: Admin: 04/23/19 12:06 Dose: 3 ml Documented by: RICHARD Albuterol/Ipratropium (Duoneb 3 Ml Ampul) 3 ml NEB RTQ4 JENNIFER Stop: 05/26/19 11:59 Last Admin: 04/28/19 08:24 Dose: 3 ml Documented by: Admin: 04/28/19 03:32 Dose: 3 ml Documented by: Admin: 04/28/19 00:27 Dose: 3 ml Documented by: Admin: 04/27/19 20:34 Dose: 3 ml Documented by: Admin: 04/27/19 16:16 Dose: 3 ml Documented by: Admin: 04/27/19 12:22 Dose: 3 ml Documented by: Admin: 04/27/19 08:03 Dose: 3 ml Documented by: Admin: 04/27/19 04:06 Dose: 3 ml Documented by: Admin: 04/26/19 23:21 Dose: 3 ml Documented by: Admin: 04/26/19 20:07 Dose: 3 ml Documented by: Admin: 04/26/19 15:57 Dose: 3 ml Documented by: Admin: 04/26/19 12:01 Dose: Not Given Documented by: EDGAR Non-Admin Reason: Documented Elsewhere Apixaban (Eliquis 5 Mg Tablet) 5 mg PO BID JENNIFER Stop: 05/23/19 09:59 Last Admin: 04/28/19 10:06 Dose: 5 mg Documented by: Admin: 04/27/19 18:19 Dose: 5 mg Documented by: Admin: 04/27/19 11:24 Dose: 5 mg Documented by: Admin: 04/26/19 17:56 Dose: 5 mg Documented by: Admin: 04/26/19 09:29 Dose: 5 mg Documented by: Admin: 04/25/19 17:28 Dose: 5 mg Documented by: Admin: 04/25/19 09:07 Dose: 5 mg Documented by: Admin: 04/24/19 17:47 Dose: 5 mg Documented by: Admin: 04/24/19 09:10 Dose: 5 mg Documented by: Admin: 04/23/19 17:41 Dose: 5 mg Documented by: Admin: 04/23/19 10:48 Dose: 5 mg Documented by: MAGNUS Aspirin (Ecotrin 81 Mg Ec Tablet) 81 mg PO DAILY JENNIFER Stop: 05/24/19 09:59 Last Admin: 04/28/19 10:05 Dose: 81 mg Documented by: Admin: 04/27/19 11:25 Dose: 81 mg Documented by: Admin: 04/26/19 09:27 Dose: 81 mg Documented by: Admin: 04/25/19 09:07 Dose: 81 mg Documented by: Admin: 04/24/19 09:10 Dose: 81 mg Documented by: SUSAN Atorvastatin Calcium (Lipitor 20 Mg Tablet) 20 mg PO DAILY JENNIFER Stop: 05/24/19 09:59 Last Admin: 04/28/19 10:05 Dose: 20 mg Documented by: Admin: 04/27/19 11:22 Dose: 20 mg Documented by: Admin: 04/26/19 09:29 Dose: 20 mg Documented by: Admin: 04/25/19 09:07 Dose: 20 mg Documented by: Admin: 04/24/19 09:11 Dose: 20 mg Documented by: SUSAN Budesonide (Pulmicort Neb 0.5 Mg/2 Ml Ampul) 0.5 mg NEB RTQ12 JENNIFER Stop: 05/26/19 19:59 Last Admin: 04/28/19 08:24 Dose: 0.5 mg Documented by: Admin: 04/27/19 20:34 Dose: 0.5 mg Documented by: Admin: 04/27/19 08:03 Dose: 0.5 mg Documented by: Admin: 04/26/19 20:07 Dose: 0.5 mg Documented by: RADHA Buspirone HCl (Buspar 10 Mg Tablet) 5 mg PO Q12 JENNIFER Stop: 05/23/19 21:59 Last Admin: 04/28/19 10:06 Dose: 5 mg Documented by: Admin: 04/27/19 21:16 Dose: 5 mg Documented by: Admin: 04/27/19 11:22 Dose: 5 mg Documented by: Admin: 04/26/19 22:48 Dose: 5 mg Documented by: Admin: 04/26/19 09:29 Dose: 5 mg Documented by: Admin: 04/25/19 21:15 Dose: 5 mg Documented by: Admin: 04/25/19 09:07 Dose: 5 mg Documented by: Admin: 04/24/19 21:02 Dose: 5 mg Documented by: Admin: 04/24/19 09:10 Dose: 5 mg Documented by: Admin: 04/23/19 21:59 Dose: 5 mg Documented by: JUSTIN Cetirizine HCl (Zyrtec 10 Mg Tablet) 10 mg PO DAILY JENNIFER Stop: 05/24/19 09:59 Last Admin: 04/28/19 10:06 Dose: 10 mg Documented by: Admin: 04/27/19 11:24 Dose: 10 mg Documented by: Admin: 04/26/19 09:25 Dose: 10 mg Documented by: Admin: 04/25/19 09:07 Dose: 10 mg Documented by: Admin: 04/24/19 09:10 Dose: 10 mg Documented by: SUSAN Citalopram Hydrobromide (Celexa 20 Mg Tablet) 40 mg PO DAILY JENNIFER Stop: 05/24/19 09:59 Last Admin: 04/28/19 10:05 Dose: 40 mg Documented by: Admin: 04/27/19 11:25 Dose: 40 mg Documented by: Admin: 04/26/19 09:28 Dose: 40 mg Documented by: Admin: 04/25/19 09:07 Dose: 40 mg Documented by: Admin: 04/24/19 09:10 Dose: 40 mg Documented by: SUSAN Cyanocobalamin (Vitamin B-12 1000 Mcg Tablet) 1,000 mcg PO DAILY JENNIFER Stop: 05/24/19 09:59 Last Admin: 04/28/19 10:06 Dose: 1,000 mcg Documented by: Admin: 04/27/19 11:22 Dose: 1,000 mcg Documented by: Admin: 04/26/19 09:27 Dose: 1,000 mcg Documented by: Admin: 04/25/19 09:09 Dose: 1,000 mcg Documented by: Admin: 04/24/19 09:10 Dose: 1,000 mcg Documented by: SUSAN Ferrous Sulfate (Feosol 325 Mg Tablet) 325 mg PO DAILY JENNIFER Stop: 05/24/19 09:59 Last Admin: 04/28/19 10:05 Dose: 325 mg Documented by: Admin: 04/27/19 11:24 Dose: 325 mg Documented by: Admin: 04/26/19 09:27 Dose: 325 mg Documented by: Admin: 04/25/19 09:07 Dose: 325 mg Documented by: Admin: 04/24/19 09:10 Dose: 325 mg Documented by: SUSAN Fluticasone Propionate (Flonase Nasal [place] 50 Mcg/[place] 16 Gm) 2 spray NASL Q12 JENNIFER Stop: 05/23/19 09:59 Last Admin: 04/28/19 10:08 Dose: 2 spray Documented by: Admin: 04/27/19 21:16 Dose: 2 spray Documented by: Admin: 04/27/19 11:29 Dose: 2 spray Documented by: Admin: 04/26/19 22:49 Dose: Not Given Documented by: OCTAVIANO Non-Ned Reason: Patient Refused Admin: 04/26/19 09:32 Dose: 2 spray Documented by: Admin: 04/25/19 21:14 Dose: 2 spray Documented by: Admin: 04/25/19 09:08 Dose: 2 spray Documented by: Admin: 04/24/19 21:01 Dose: Not Given Documented by: OCTAVIANO Non-Admin Reason: Patient Refused Admin: 04/24/19 09:11 Dose: 2 spray Documented by: Admin: 04/23/19 22:00 Dose: 2 spray Documented by: Admin: 04/23/19 10:48 Dose: 2 spray Documented by: MAGNUS Furosemide (Lasix 40 Mg Tablet) 60 mg PO BID JENNIFER Stop: 05/27/19 09:59 Last Admin: 04/28/19 10:07 Dose: 60 mg Documented by: DEV MAR Blood Pressure Document 04/28/19 10:07 ATR (Rec: 04/28/19 10:08 ATR [email or web address]) Vital Sign Review Blood Pressure 107/61 MAR Potassium Level Document 04/28/19 10:07 ATR (Rec: 04/28/19 10:08 ATR [id number]) Lab Review Potassium Level 5.0 Admin: 04/27/19 18:20 Dose: 60 mg Documented by: JUMANA MAR Blood Pressure Document 04/27/19 18:20 BNJ (Rec: 04/27/19 18:20 BN [id number]) Vital Sign Review Blood Pressure 119/62 Admin: 04/27/19 11:26 Dose: 60 mg Documented by: JUMANA Guaifenesin (Mucinex Sr 600 Mg Tablet.Sa) 600 mg PO Q12 JENNIFER Stop: 05/26/19 21:59 Last Admin: 04/28/19 10:06 Dose: 600 mg Documented by: Admin: 04/27/19 21:16 Dose: 600 mg Documented by: Admin: 04/27/19 11:24 Dose: 600 mg Documented by: Admin: 04/26/19 22:48 Dose: 600 mg Documented by: OCTAVIANO Doxycycline Hyclate 100 mg/ (Dextrose) 250 mls @ 125 mls/hr IV Q12A JENNIFER Stop: 05/04/19 17:59 Last Admin: 04/28/19 06:02 Dose: 125 mls/hr, 125 mls/hr Documented by: SARA Infusion Flowsheet Document 04/28/19 06:02 NAA (Rec: 04/28/19 06:02 NAA [id number]) Infusion Queries Infusion Dose 125 IV Rate 125 Infusion Cumulative Dose 100 Increase/Decrease Started/Running Elapsed Time 2h 0m Intake Queries Container Volume 250 Total Intake (Rx) 250 Volume Adjusted/Wasted 0 Infusion: 04/27/19 22:16 Dose: 0 mls/hr, 0 mls/hr Documented by: SARA Infusion Flowsheet Document 04/27/19 22:16 NAA (Rec: 04/28/19 01:26 NAA [id number]) Infusion Queries Infusion Dose 0 IV Rate 0 Infusion Cumulative Dose 100 Increase/Decrease Infused Elapsed Time 2h 0m Intake Queries Container Volume 0 Infusion Intake 250 Cumulative Intake 250 Total Intake (Rx) 250 Volume Adjusted/Wasted 0 Admin: 04/27/19 20:16 Dose: 125 mls/hr, 125 mls/hr Documented by: SARA Infusion Flowsheet Document 04/27/19 20:16 SLA (Rec: 04/27/19 20:16 NAA [id number]) Infusion Queries Infusion Dose 125 IV Rate 125 Increase/Decrease Started Elapsed Time 0m Intake Queries Container Volume 250 Volume Adjusted/Wasted 0 Ertapenem 1 gm/ Sodium (Chloride) 50 mls @ 100 mls/hr IV DAILY JENNIFER Stop: 05/05/19 09:59 Last Admin: 04/28/19 10:30 Dose: 100 mls/hr, 100 mls/hr Documented by: DEV Infusion Flowsheet Document 04/28/19 10:30 ATR (Rec: 04/28/19 10:30 ATR [id number]) Infusion Queries Infusion Dose 100 IV Rate 100 Increase/Decrease Started Elapsed Time 0m Intake Queries Container Volume 50 Volume Adjusted/Wasted 0 Levothyroxine Sodium (Synthroid 0.112 Mg Tablet) 0.112 mg PO Q6AM [facility] Stop: 05/24/19 05:59 Last Admin: 04/28/19 05:11 Dose: 0.112 mg Documented by: Admin: 04/27/19 06:02 Dose: 0.112 mg Documented by: Admin: 04/26/19 06:13 Dose: 0.112 mg Documented by: Admin: 04/25/19 05:34 Dose: 0.112 mg Documented by: Admin: 04/24/19 06:06 Dose: 0.112 mg Documented by: JUSTIN Lorazepam (Ativan Inj 2 Mg/1 Ml Vial) 1 mg IV Q6HP PRN PRN Reason: ANXIETY/AGITATION Stop: 05/02/19 08:36 Last Admin: 04/27/19 20:12 Dose: 1 mg Documented by: Admin: 04/26/19 09:07 Dose: 1 mg Documented by: JUMANA Melatonin (Melatonin 3 Mg Tablet) 3 mg PO HSP PRN PRN Reason: SLEEP OR INSOMNIA Stop: 05/23/19 21:47 Last Admin: 04/24/19 22:41 Dose: 3 mg Documented by: Admin: 04/23/19 22:00 Dose: 3 mg Documented by: JUSTIN Methylprednisolone Sodium Succinate (Solu-Medrol Inj/Pf 40 Mg/1 Ml Sdv) 40 mg IV Q8 JENNIFER Stop: 05/26/19 13:59 Last Admin: 04/28/19 05:10 Dose: 40 mg Documented by: Admin: 04/27/19 21:16 Dose: 40 mg Documented by: Admin: 04/27/19 14:02 Dose: 40 mg Documented by: Admin: 04/27/19 06:01 Dose: 40 mg Documented by: Admin: 04/26/19 22:48 Dose: 40 mg Documented by: Admin: 04/26/19 14:21 Dose: 40 mg Documented by: JUMANA Morphine Sulfate (Morphine 10 Mg/Ml Inj) 2 mg IV Q6HP PRN PRN Reason: FOR PAIN SCALE 4-5 Stop: 05/02/19 08:37 Last Admin: 04/27/19 19:27 Dose: 2 mg Documented by: SARA Pain Assessment Document 04/27/19 19:27 SLA (Rec: 04/27/19 19:28 SLA [id number]) Pain Level Pain Scale Used Adult (verbal) Pain Level 5 Non Verbal Pain Queues Grasping Site,Rubbing Site Pain Relief Techniques Position Change,Room Lighting Adjusted Pain Location/Description Pain Location Head Pain Type Acute Re-Assess: Pain Assessment Document 04/27/19 20:27 SLA (Rec: 04/27/19 20:45 SLA [id number]) Pain Level Pain Scale Used Faces (non-verbal) Pain Level 0 Non Verbal Pain Queues None Noted Admin: 04/27/19 10:17 Dose: 2 mg Documented by: JUMANA Pain Assessment Document 04/27/19 10:17 [facility] (Rec: 04/27/19 10:18 [facility] [id number]) Pain Level Pain Scale Used Adult (verbal) Pain Level 5 Non Verbal Pain Queues None Noted Pain Relief Techniques Medication Pain Location/Description Pain Location Head Pain Type Acute Pain Description Throbbing Re-Assess: Pain Assessment Document 04/27/19 11:15 BN (Rec: 04/27/19 11:33 [facility] [id number]) Pain Level Pain Scale Used Adult (verbal) Pain Level 3 Non Verbal Pain Queues None Noted Pain Relief Techniques Medication Pain Location/Description Pain Location Head Pain Type Acute Admin: 04/26/19 20:41 Dose: 2 mg Documented by: OCTAVIANO Pain Assessment Document 04/26/19 20:41 STA (Rec: 04/26/19 20:42 STA [id number]) Pain Level Pain Scale Used Adult (verbal) Pain Level 5 Non Verbal Pain Queues None Noted Pain Relief Techniques Medication,Relaxation Techniques Pain Location/Description Pain Location Head Pain Type Acute Pain Description Intermittent,Severe Re-Assess: Pain Assessment Document 04/26/19 21:30 STA (Rec: 04/26/19 22:38 STA [id number]) Pain Level Pain Scale Used Faces (non-verbal) Pain Level 0 Non Verbal Pain Queues None Noted Admin: 04/26/19 09:30 Dose: 2 mg Documented by: JUMANA Pain Assessment Document 04/26/19 09:30 BNJ (Rec: 04/26/19 09:31 BNJ [email or web address]) Pain Level Pain Scale Used Adult (verbal) Pain Level 5 Non Verbal Pain Queues None Noted Pain Relief Techniques Medication Pain Location/Description Pain Location Head Re-Assess: Pain Assessment Document 04/26/19 10:30 JGA (Rec: 04/26/19 11:40 JGA [id number]) Pain Level Pain Scale Used Faces (non-verbal) Pain Level 0 Non Verbal Pain Queues None Noted Admin: 04/26/19 03:24 Dose: 2 mg Documented by: OCTAVIANO Pain Assessment Document 04/26/19 03:24 STA (Rec: 04/26/19 03:25 STA [id number]) Pain Level Pain Scale Used Adult (verbal) Pain Level 4 Non Verbal Pain Queues None Noted Pain Relief Techniques Distraction,Relaxation Techniques Pain Location/Description Pain Location Head Pain Type Acute Pain Description Intermittent,Moderate Re-Assess: Pain Assessment Document 04/26/19 04:14 STA (Rec: 04/26/19 04:14 STA [id number]) Pain Level Pain Scale Used Faces (non-verbal) Pain Level 0 Non Verbal Pain Queues None Noted Admin: 04/25/19 21:14 Dose: 2 mg Documented by: STALEANA Pain Assessment Document 04/25/19 21:14 STA (Rec: 04/25/19 21:15 STA [id number]) Pain Level Pain Scale Used Adult (verbal) Pain Level 4 Non Verbal Pain Queues None Noted Pain Relief Techniques Medication,Distraction, Relaxation Techniques Pain Location/Description Pain Location Head Pain Type Acute Pain Description Intermittent,Moderate Re-Assess: Pain Assessment Document 04/25/19 22:00 STA (Rec: 04/25/19 22:17 STA [id number]) Pain Level Pain Scale Used Faces (non-verbal) Pain Level 0 Non Verbal Pain Queues None Noted Admin: 04/25/19 11:48 Dose: 2 mg Documented by: SUSAN Pain Assessment Document 04/25/19 11:48 JRA (Rec: 04/25/19 11:50 JRA [id number]) Pain Level Pain Scale Used Adult (verbal) Pain Level 5 Non Verbal Pain Queues None Noted Pain Relief Techniques Medication Pain Location/Description Pain Location Head Pain Type Acute Pain Description Throbbing Re-Assess: Pain Assessment Document 04/25/19 12:45 JRA (Rec: 04/25/19 12:51 JRA [id number]) Pain Level Pain Scale Used Adult (verbal) Pain Level 3 Non Verbal Pain Queues None Noted Pain Relief Techniques Medication Pain Location/Description Pain Location Head Pain Type Acute Pantoprazole Sodium (Protonix [address] Tablet) 40 mg PO Q6AM [facility] Stop: 05/24/19 05:59 Last Admin: 04/28/19 05:10 Dose: 40 mg Documented by: Admin: 04/27/19 06:02 Dose: 40 mg Documented by: Admin: 04/26/19 06:13 Dose: 40 mg Documented by: Admin: 04/25/19 05:34 Dose: 40 mg Documented by: Admin: 04/24/19 06:06 Dose: 40 mg Documented by: JUSTIN Potassium Chloride (Klor-Con 10 Meq Tablet Er) 20 meq PO Q12 [facility] Stop: 05/23/19 21:59 Last Admin: 04/27/19 21:16 Dose: 20 meq Documented by: Admin: 04/27/19 11:24 Dose: 20 meq Documented by: JUMANA MICHEL Potassium Level Document 04/27/19 11:24 XAVIER (Rec: 04/27/19 11:24 [facility] [id number]) Lab Review Potassium Level 5.0 Admin: 04/26/19 22:48 Dose: 20 meq Documented by: Admin: 04/26/19 09:27 Dose: 20 meq Documented by: JUMANA MICHEL Potassium Level Document 04/26/19 09:27 [facility] (Rec: 04/26/19 09:28 [facility] [id number]) Lab Review Potassium Level 5.0 Admin: 04/25/19 21:15 Dose: 20 meq Documented by: OCTAVIANO MICHEL Potassium Level Document 04/25/19 21:15 STA (Rec: 04/25/19 21:15 STA [id number]) Lab Review Potassium Level 4.6 Admin: 04/25/19 09:07 Dose: 20 meq Documented by: Admin: 04/24/19 21:01 Dose: 20 meq Documented by: OCTAVIANO MICHEL Potassium Level Document 04/24/19 21:01 STA (Rec: 04/24/19 21:02 STA [id number]) Lab Review Potassium Level 4.2 Admin: 04/24/19 09:10 Dose: 20 meq Documented by: Admin: 04/23/19 22:00 Dose: 20 meq Documented by: JUSTIN MICHEL Potassium Level Document 04/23/19 22:00 HHO (Rec: 04/23/19 22:00 [facility] [id number]) Lab Review Potassium Level 4.5 Roflumilast (Daliresp 500 Mcg Tablet) 500 mcg PO DAILY JENNIFER Stop: 05/24/19 09:59 Last Admin: 04/28/19 10:05 Dose: 500 mcg Documented by: Admin: 04/27/19 11:25 Dose: 500 mcg Documented by: Admin: 04/26/19 09:28 Dose: 500 mcg Documented by: Admin: 04/25/19 09:07 Dose: 500 mcg Documented by: Admin: 04/24/19 09:10 Dose: 500 mcg Documented by: SUSAN Ropinirole HCl (Requip 2 Mg Tablet) 2 mg PO Q8 JENNIFER Stop: 05/23/19 13:59 Last Admin: 04/28/19 05:11 Dose: 2 mg Documented by: Admin: 04/27/19 21:16 Dose: 2 mg Documented by: Admin: 04/27/19 14:02 Dose: 2 mg Documented by: Admin: 04/27/19 06:02 Dose: 2 mg Documented by: Admin: 04/26/19 22:48 Dose: 2 mg Documented by: Admin: 04/26/19 14:21 Dose: 2 mg Documented by: Admin: 04/26/19 06:13 Dose: 2 mg Documented by: Admin: 04/25/19 21:15 Dose: 2 mg Documented by: Admin: 04/25/19 14:46 Dose: 2 mg Documented by: Admin: 04/25/19 05:35 Dose: 2 mg Documented by: Admin: 04/24/19 21:02 Dose: 2 mg Documented by: Admin: 04/24/19 15:14 Dose: 2 mg Documented by: Admin: 04/24/19 06:06 Dose: 2 mg Documented by: Admin: 04/23/19 21:59 Dose: 2 mg Documented by: Admin: 04/23/19 14:51 Dose: 2 mg Documented by: CAMRYN Sodium Chloride (Saline Flush 2.5 Ml Monoject Prefil Syrin) 2.5 ml IV Q8 JENNIFER Stop: 05/23/19 05:59 Last Admin: 04/28/19 05:15 Dose: 2.5 ml Documented by: Admin: 04/27/19 21:17 Dose: 2.5 ml Documented by: Admin: 04/27/19 14:02 Dose: 2.5 ml Documented by: Admin: 04/27/19 06:01 Dose: 2.5 ml Documented by: Admin: 04/26/19 22:48 Dose: 2.5 ml Documented by: Admin: 04/26/19 14:27 Dose: 2.5 ml Documented by: Admin: 04/26/19 06:13 Dose: 2.5 ml Documented by: Admin: 04/25/19 21:15 Dose: 2.5 ml Documented by: Admin: 04/25/19 14:46 Dose: 2.5 ml Documented by: Admin: 04/25/19 05:44 Dose: Not Given Documented by: OCTAVIANO Non-Admin Reason: IV infusion in progress Admin: 04/24/19 21:01 Dose: 2.5 ml Documented by: Admin: 04/24/19 15:15 Dose: 2.5 ml Documented by: Admin: 04/24/19 06:06 Dose: 2.5 ml Documented by: Admin: 04/23/19 22:01 Dose: 2.5 ml Documented by: Admin: 04/23/19 14:47 Dose: 2.5 ml Documented by: Admin: 04/23/19 05:32 Dose: 2.5 ml Documented by: JUSTIN Throat Lozenges (Chloraseptic Sore Throat Lozenge) 1 each BUCCAL Q8HP PRN PRN Reason: FOR SORE THROAT Stop: 05/23/19 06:46 Last Admin: 04/23/19 06:55 Dose: 1 each Documented by: JUSTIN Discontinued Medications Albuterol/Ipratropium (Duoneb 3 Ml Ampul) 9 ml NEB NOW ONE Stop: 04/22/19 23:35 Last Admin: 04/22/19 23:47 Dose: 9 ml Documented by: RICHA Albuterol/Ipratropium (Duoneb 3 Ml Ampul) 3 ml NEB RTQ8 JENNIFER Stop: 05/23/19 07:59 Last Admin: 04/23/19 07:28 Dose: 3 ml Documented by: RICHARD Albuterol/Ipratropium (Duoneb 3 Ml Ampul) 3 ml NEB RTQ6 JENNIFER Stop: 05/23/19 13:59 Last Admin: 04/26/19 08:28 Dose: 3 ml Documented by: Admin: 04/26/19 02:07 Dose: 3 ml Documented by: Admin: 04/25/19 20:37 Dose: 3 ml Documented by: Admin: 04/25/19 14:16 Dose: 3 ml Documented by: Admin: 04/25/19 08:02 Dose: 3 ml Documented by: Admin: 04/25/19 01:56 Dose: 3 ml Documented by: Admin: 04/24/19 20:56 Dose: 3 ml Documented by: Admin: 04/24/19 13:27 Dose: 3 ml Documented by: Admin: 04/24/19 07:51 Dose: 3 ml Documented by: Admin: 04/24/19 02:10 Dose: 3 ml Documented by: Admin: 04/23/19 20:09 Dose: 3 ml Documented by: Admin: 04/23/19 13:54 Dose: 3 ml Documented by: RICHARD Albuterol/Ipratropium (Duoneb 3 Ml Ampul) 3 ml NEB NOW ONE Stop: 04/24/19 05:01 Last Admin: 04/24/19 05:13 Dose: 3 ml Documented by: RADHA Chlorpheniramine Maleate (Chlor-Trimeton 4 Mg Tablet) 4 mg PO Q6H [facility] Stop: 04/23/19 19:31 Last Admin: 04/23/19 11:00 Dose: Not Given Documented by: MAGNUS Non-Admin Reason: DC per MD Order Admin: 04/23/19 01:32 Dose: 4 mg Documented by: RICHA Chlorpheniramine Maleate (Chlor-Trimeton 4 Mg Tablet) 4 mg PO Q6 JENNIFER Stop: 04/23/19 18:01 Last Admin: 04/23/19 17:41 Dose: 4 mg Documented by: Admin: 04/23/19 14:47 Dose: 4 mg Documented by: CAMRYN Furosemide (Lasix 20 Mg Tablet) 80 mg PO DAILY JENNIFER Stop: 05/23/19 11:59 Last Admin: 04/24/19 09:09 Dose: 80 mg Documented by: Admin: 04/23/19 11:31 Dose: 80 mg Documented by: MAGNUS Furosemide (Lasix 40 Mg Tablet) Confirm Administered Dose 40 mg .ROUTE .STK-MED ONE Stop: 04/23/19 10:47 Last Admin: 04/23/19 10:59 Dose: Not Given Documented by: MAGNUS Non-Admin Reason: Documented Elsewhere Furosemide (Lasix 80 Mg Tablet) 80 mg PO DAILY [facility] Stop: 05/25/19 09:59 Last Admin: 04/26/19 09:26 Dose: 80 mg Documented by: JUMANA MICHEL Blood Pressure Document 04/26/19 09:26 [facility] (Rec: 04/26/19 09:26 [facility] [id number]) Vital Sign Review Blood Pressure 101/64 [facility] Potassium Level Document 04/26/19 09:26 [facility] (Rec: 04/26/19 09:26 [facility] [id number]) Lab Review Potassium Level 5.0 Admin: 04/25/19 09:08 Dose: 80 mg Documented by: SUSAN Furosemide (Lasix Inj/Pf 20 Mg/2 Ml Sdv) 20 mg IV NOW ONE Stop: 04/26/19 18:01 Last Admin: 04/26/19 17:57 Dose: 20 mg Documented by: JUMANA MICHEL Blood Pressure Document 04/26/19 17:57 [facility] (Rec: 04/26/19 17:57 [facility] [id number]) Vital Sign Review Blood Pressure 120/64 Cefepime HCl (Maxipime Rtu 2 Gm-D5w 50 Ml Premix Bag) 2 gm in 50 mls @ 100 mls/hr IV Q12A JENNIFER Stop: 04/30/19 05:59 Last Infusion: 04/23/19 07:00 Dose: 0 ml/hr, 0 mls/hr Documented by: MAGNUS Infusion Flowsheet Document 04/23/19 07:00 ACR (Rec: 04/23/19 11:13 ACR [id number]) Infusion Queries Infusion Dose 0 IV Rate 0 Infusion Cumulative Dose 2 Increase/Decrease Infused Elapsed Time 1h 28m Intake Queries Container Volume 0 Infusion Intake 50 Cumulative Intake 50 Total Intake (Rx) 50 Volume Adjusted/Wasted 0 Admin: 04/23/19 05:32 Dose: 100 ml/hr, 100 mls/hr Documented by: JUSTIN Antibiotics Document 04/23/19 05:32 HHO (Rec: 04/23/19 05:32 HHO [id number]) Blood Cultures Were blood cultures obtained prior to Yes giving antibiotics? Time blood cultures were obtained 23:00 Date blood cultures were obtained 04/22/19 Infusion Flowsheet Document 04/23/19 05:32 HHO (Rec: 04/23/19 05:32 HHO [id number]) Infusion Queries Infusion Dose 100 IV Rate 100 Increase/Decrease Started Elapsed Time 0m Intake Queries Container Volume 50 Volume Adjusted/Wasted 0 Cefepime HCl (Maxipime Rtu 2 Gm-D5w 50 Ml Premix Bag) Confirm Administered Dose 2 gm in 50 mls @ ud IV .STK-MED ONE Stop: 04/23/19 05:25 Last Admin: 04/23/19 05:54 Dose: Not Given Documented by: JUSTIN Non-Admin Reason: .stk Antibiotics Document 04/23/19 05:54 HHO (Rec: 04/23/19 05:54 HHO [id number]) Blood Cultures Were blood cultures obtained prior to Yes giving antibiotics? Time blood cultures were obtained 23:00 Date blood cultures were obtained 04/22/19 Cefepime HCl 2 gm/ Dextrose 50 mls @ 100 mls/hr IV Q12A JENNIFER Stop: 04/30/19 17:59 Last Infusion: 04/28/19 05:40 Dose: 0 mls/hr, 0 mls/hr Documented by: SARA Infusion Flowsheet Document 04/28/19 05:40 SLA (Rec: 04/28/19 07:02 SLA [id number]) Infusion Queries Infusion Dose 0 IV Rate 0 Infusion Cumulative Dose 20 Increase/Decrease Infused Elapsed Time 12h 11m Intake Queries Container Volume 0 Infusion Intake 50 Cumulative Intake 50 Total Intake (Rx) 500 Volume Adjusted/Wasted 0 Admin: 04/28/19 05:10 Dose: 100 mls/hr, 100 mls/hr Documented by: SARA Antibiotics Document 04/28/19 05:10 SLA (Rec: 04/28/19 05:10 SLA [id number]) Blood Cultures Were blood cultures obtained prior to Yes giving antibiotics? Time blood cultures were obtained 23:00 Date blood cultures were obtained 04/22/19 Infusion Flowsheet Document 04/28/19 05:10 SLA (Rec: 04/28/19 05:10 SLA [id number]) Infusion Queries Infusion Dose 100 IV Rate 100 Infusion Cumulative Dose 18 Increase/Decrease Started/Running Elapsed Time 11h 41m Intake Queries Container Volume 50 Total Intake (Rx) 450 Volume Adjusted/Wasted 0 Infusion: 04/27/19 19:56 Dose: 0 mls/hr, 0 mls/hr Documented by: SUSAN Infusion Flowsheet Document 04/27/19 19:56 JRA (Rec: 04/27/19 19:57 JRA [id number]) Infusion Queries Infusion Dose 0 IV Rate 0 Infusion Cumulative Dose 18 Increase/Decrease Infused Elapsed Time 11h 41m Intake Queries Container Volume 0 Infusion Intake 50 Cumulative Intake 50 Total Intake (Rx) 450 Volume Adjusted/Wasted 0 Admin: 04/27/19 18:21 Dose: 100 mls/hr, 100 mls/hr Documented by: CANDIDAROGE Antibiotics Document 04/27/19 18:21 XAVIER (Rec: 04/27/19 18:21 [facility] [id number]) Blood Cultures Were blood cultures obtained prior to Yes giving antibiotics? Time blood cultures were obtained 23:00 Date blood cultures were obtained 04/22/19 Infusion Flowsheet Document 04/27/19 18:21 XAVIER (Rec: 04/27/19 18:21 [facility] [id number]) Infusion Queries Infusion Dose 100 IV Rate 100 Infusion Cumulative Dose 16 Increase/Decrease Started/Running Elapsed Time 10h 6m Intake Queries Container Volume 50 Total Intake (Rx) 400 Volume Adjusted/Wasted 0 Infusion: 04/27/19 06:31 Dose: 0 mls/hr, 0 mls/hr Documented by: OCTAVIANO Infusion Flowsheet Document 04/27/19 06:31 STA (Rec: 04/27/19 07:13 [facility] [id number][facility] Infusion Queries Infusion Dose 0 IV Rate 0 Infusion Cumulative Dose 16 Increase/Decrease Infused Elapsed Time 10h 6m Intake Queries Container Volume 0 Infusion Intake 50 Cumulative Intake 50 Total Intake (Rx) 400 Volume Adjusted/Wasted 0 Admin: 04/27/19 06:01 Dose: 100 mls/hr, 100 mls/hr Documented by: ALEJANDROBOR Antibiotics Document 04/27/19 06:01 [facility] (Rec: 04/27/19 06:01 [facility] [id number][facility] Blood Cultures Were blood cultures obtained prior to Yes giving antibiotics? Time blood cultures were obtained 23:00 Date blood cultures were obtained 04/22/19 Infusion Flowsheet Document 04/27/19 06:01 [facility] (Rec: 04/27/19 06:01 [facility] [id number][facility] Infusion Queries Infusion Dose 100 IV Rate 100 Infusion Cumulative Dose 14 Increase/Decrease Started/Running Elapsed Time 9h 36m Intake Queries Container Volume 50 Total Intake (Rx) 350 Volume Adjusted/Wasted 0 Infusion: 04/26/19 19:17 Dose: 0 mls/hr, 0 mls/hr Documented by: BNJOROGE Infusion Flowsheet Document 04/26/19 19:17 [facility] (Rec: 04/26/19 19:17 [facility] [id number]) Infusion Queries Infusion Dose 0 IV Rate 0 Infusion Cumulative Dose 14 Increase/Decrease Infused Elapsed Time 9h 36m Intake Queries Container Volume 0 Infusion Intake 50 Cumulative Intake 50 Total Intake (Rx) 350 Volume Adjusted/Wasted 0 Admin: 04/26/19 18:06 Dose: 100 mls/hr, 100 mls/hr Documented by: MAGDIJOROGE Antibiotics Document 04/26/19 18:06 [facility] (Rec: 04/26/19 18:07 [facility] [id number]) Blood Cultures Were blood cultures obtained prior to Yes giving antibiotics? Time blood cultures were obtained 23:00 Date blood cultures were obtained 04/22/19 Infusion Flowsheet Document 04/26/19 18:06 [facility] (Rec: 04/26/19 18:07 [facility] [id number]) Infusion Queries Infusion Dose 100 IV Rate 100 Infusion Cumulative Dose 12 Increase/Decrease Started/Running Elapsed Time 8h 25m Intake Queries Container Volume 50 Total Intake (Rx) 300 Volume Adjusted/Wasted 0 Infusion: 04/26/19 09:38 Dose: 0 mls/hr, 0 mls/hr Documented by: BNJOROGE Infusion Flowsheet Document 04/26/19 09:38 XAVIER (Rec: 04/26/19 09:38 BNJ [id number]) Infusion Queries Infusion Dose 0 IV Rate 0 Infusion Cumulative Dose 12 Increase/Decrease Infused Elapsed Time 8h 25m Intake Queries Container Volume 0 Infusion Intake 50 Cumulative Intake 50 Total Intake (Rx) 300 Volume Adjusted/Wasted 0 Admin: 04/26/19 06:13 Dose: 100 mls/hr, 100 mls/hr Documented by: ALEJANDROBOR Antibiotics Document 04/26/19 06:13 STA (Rec: 04/26/19 06:13 STA [id number]) Blood Cultures Were blood cultures obtained prior to Yes giving antibiotics? Time blood cultures were obtained 23:00 Date blood cultures were obtained 04/22/19 Infusion Flowsheet Document 04/26/19 06:13 STA (Rec: 04/26/19 06:13 STA [id number]) Infusion Queries Infusion Dose 100 IV Rate 100 Infusion Cumulative Dose 10 Increase/Decrease Started/Running Elapsed Time 5h 0m Intake Queries Container Volume 50 Total Intake (Rx) 250 Volume Adjusted/Wasted 0 Infusion: 04/25/19 19:21 Dose: 0 mls/hr, 0 mls/hr Documented by: CHERS Infusion Flowsheet Document 04/25/19 19:21 MARCO (Rec: 04/25/19 19:21 JRA [id number]) Infusion Queries Infusion Dose 0 IV Rate 0 Infusion Cumulative Dose 10 Increase/Decrease Infused Elapsed Time 5h 0m Intake Queries Container Volume 0 Infusion Intake 50 Cumulative Intake 50 Total Intake (Rx) 250 Volume Adjusted/Wasted 0 Admin: 04/25/19 17:28 Dose: 100 mls/hr, 100 mls/hr Documented by: JRMARIBELLS Antibiotics Document 04/25/19 17:28 JRA (Rec: 04/25/19 17:29 JRA [id number]) Blood Cultures Were blood cultures obtained prior to Yes giving antibiotics? Time blood cultures were obtained 23:00 Date blood cultures were obtained 04/22/19 Infusion Flowsheet Document 04/25/19 17:28 JRA (Rec: 04/25/19 17:29 JRA [id number]) Infusion Queries Infusion Dose 100 IV Rate 100 Infusion Cumulative Dose 8 Increase/Decrease Started/Running Elapsed Time 3h 7m Intake Queries Container Volume 50 Total Intake (Rx) 200 Volume Adjusted/Wasted 0 Infusion: 04/25/19 06:05 Dose: 0 mls/hr, 0 mls/hr Documented by: OCTAVIANO Infusion Flowsheet Document 04/25/19 06:05 STA (Rec: 04/25/19 06:53 STA [id number]) Infusion Queries Infusion Dose 0 IV Rate 0 Infusion Cumulative Dose 8 Increase/Decrease Infused Elapsed Time 3h 7m Intake Queries Container Volume 0 Infusion Intake 50 Cumulative Intake 50 Total Intake (Rx) 200 Volume Adjusted/Wasted 0 Admin: 04/25/19 05:35 Dose: 100 mls/hr, 100 mls/hr Documented by: OCTAVIANO Antibiotics Document 04/25/19 05:35 STA (Rec: 04/25/19 05:35 STA [id number]) Blood Cultures Were blood cultures obtained prior to Yes giving antibiotics? Time blood cultures were obtained 23:00 Date blood cultures were obtained 04/22/19 Infusion Flowsheet Document 04/25/19 05:35 STA (Rec: 04/25/19 05:35 STA [id number]) Infusion Queries Infusion Dose 100 IV Rate 100 Infusion Cumulative Dose 6 Increase/Decrease Started/Running Elapsed Time 2h 37m Intake Queries Container Volume 50 Total Intake (Rx) 150 Volume Adjusted/Wasted 0 Infusion: 04/24/19 19:00 Dose: 0 mls/hr, 0 mls/hr Documented by: OCTAVIANO Infusion Flowsheet Document 04/24/19 19:00 STA (Rec: 04/24/19 22:22 STA [id number]) Infusion Queries Infusion Dose 0 IV Rate 0 Infusion Cumulative Dose 6 Increase/Decrease Infused Elapsed Time 2h 37m Intake Queries Container Volume 0 Infusion Intake 50 Cumulative Intake 50 Total Intake (Rx) 150 Volume Adjusted/Wasted 0 Admin: 04/24/19 17:47 Dose: 100 mls/hr, 100 mls/hr Documented by: CHERS Antibiotics Document 04/24/19 17:47 JRA (Rec: 04/24/19 17:47 JRA [id number]) Blood Cultures Were blood cultures obtained prior to Yes giving antibiotics? Time blood cultures were obtained 23:00 Date blood cultures were obtained 04/22/19 Infusion Flowsheet Document 04/24/19 17:47 JRA (Rec: 04/24/19 17:47 JRA [id number]) Infusion Queries Infusion Dose 100 IV Rate 100 Infusion Cumulative Dose 4 Increase/Decrease Started/Running Elapsed Time 1h 24m Intake Queries Container Volume 50 Total Intake (Rx) 100 Volume Adjusted/Wasted 0 Infusion: 04/24/19 07:00 Dose: 0 mls/hr, 0 mls/hr Documented by: SUSAN Infusion Flowsheet Document 04/24/19 07:00 MARCO (Rec: 04/24/19 10:11 MARCO [id number]) Infusion Queries Infusion Dose 0 IV Rate 0 Infusion Cumulative Dose 4 Increase/Decrease Infused Elapsed Time 1h 24m Intake Queries Container Volume 0 Infusion Intake 50 Cumulative Intake 50 Total Intake (Rx) 100 Volume Adjusted/Wasted 0 Admin: 04/24/19 06:06 Dose: 100 mls/hr, 100 mls/hr Documented by: JUSTIN Antibiotics Document 04/24/19 06:06 HHO (Rec: 04/24/19 06:06 O [id number]) Blood Cultures Were blood cultures obtained prior to Yes giving antibiotics? Time blood cultures were obtained 23:00 Date blood cultures were obtained 04/22/19 Infusion Flowsheet Document 04/24/19 06:06 HHO (Rec: 04/24/19 06:06 O [id number]) Infusion Queries Infusion Dose 100 IV Rate 100 Infusion Cumulative Dose 2 Increase/Decrease Started/Running Elapsed Time 30m Intake Queries Container Volume 50 Total Intake (Rx) 50 Volume Adjusted/Wasted 0 Infusion: 04/23/19 18:12 Dose: 100 mls/hr, 100 mls/hr Documented by: JUSTIN Infusion Flowsheet Document 04/23/19 18:12 HHO (Rec: 04/24/19 06:06 O [id number]) Infusion Queries Infusion Dose 100 IV Rate 100 Infusion Cumulative Dose 2 Increase/Decrease Infused Elapsed Time 30m Intake Queries Container Volume 0 Infusion Intake 50 Cumulative Intake 50 Total Intake (Rx) 50 Volume Adjusted/Wasted 0 Admin: 04/23/19 17:42 Dose: 100 mls/hr, 100 mls/hr Documented by: CAMRYN Antibiotics Document 04/23/19 17:42 SABINOI (Rec: 04/23/19 17:42 I [email or web address]) Blood Cultures Were blood cultures obtained prior to Yes giving antibiotics? Time blood cultures were obtained 23:00 Date blood cultures were obtained 04/22/19 Infusion Flowsheet Document 04/23/19 17:42 SABINOI (Rec: 04/23/19 17:42 JSI [email or web address]) Infusion Queries Infusion Dose 100 IV Rate 100 Increase/Decrease Started Elapsed Time 0m Intake Queries Container Volume 50 Volume Adjusted/Wasted 0 Vancomycin HCl 1,250 mg/ (Dextrose) 250 mls @ 166.667 mls/hr IV Q8A JENNIFER Stop: 04/30/19 09:59 Last Infusion: 04/26/19 04:14 Dose: 0 mls/hr, 0 mls/hr Documented by: Sifteo Infusion Flowsheet Document 04/26/19 04:14 STA (Rec: 04/26/19 04:14 STA [email or web address]) Infusion Queries Infusion Dose 0 IV Rate 0 Infusion Cumulative Dose 25416 Increase/Decrease Infused Elapsed Time 19h 6m Intake Queries Container Volume 0 Infusion Intake 250 Cumulative Intake 250 Total Intake (Rx) 2,250 Volume Adjusted/Wasted 0 Admin: 04/26/19 01:48 Dose: 166.6 mls/hr, 166.6 mls/hr Documented by: Sifteo Infusion Flowsheet Document 04/26/19 01:48 STA (Rec: 04/26/19 01:48 STA [email or web address]) Infusion Queries Infusion Dose 166.6 IV Rate 166.6 Infusion Cumulative Dose 15750 Increase/Decrease Started/Decreased Elapsed Time 16h 40m Intake Queries Container Volume 250 Total Intake (Rx) 2,000 Volume Adjusted/Wasted 0 Infusion: 04/25/19 19:00 Dose: 0 mls/hr, 0 mls/hr Documented by: ALEJANDROciValue Infusion Flowsheet Document 04/25/19 19:00 STA (Rec: 04/25/19 21:24 STA [email or web address]) Infusion Queries Infusion Dose 0 IV Rate 0 Infusion Cumulative Dose 83308 Increase/Decrease Infused Elapsed Time 16h 40m Intake Queries Container Volume 0 Infusion Intake 250 Cumulative Intake 250 Total Intake (Rx) 2,000 Volume Adjusted/Wasted 0 Admin: 04/25/19 17:29 Dose: 167 mls/hr, 167 mls/hr Documented by: SUSAN Infusion Flowsheet Document 04/25/19 17:29 MARCO (Rec: 04/25/19 17:29 MARCO [email or web address]) Infusion Queries Infusion Dose 167 IV Rate 167 Infusion Cumulative Dose 8750 Increase/Decrease Started/Running Elapsed Time 15h 9m Intake Queries Container Volume 250 Total Intake (Rx) 1,750 Volume Adjusted/Wasted 0 Infusion: 04/25/19 11:30 Dose: 0 mls/hr, 0 mls/hr Documented by: Surface Tension Infusion Flowsheet Document 04/25/19 11:30 MARCO (Rec: 04/25/19 12:52 MARCO [id number]) Infusion Queries Infusion Dose 0 IV Rate 0 Infusion Cumulative Dose 8750 Increase/Decrease Infused Elapsed Time 15h 9m Intake Queries Container Volume 0 Infusion Intake 250 Cumulative Intake 250 Total Intake (Rx) 1,750 Volume Adjusted/Wasted 0 Admin: 04/25/19 09:07 Dose: 167 mls/hr, 167 mls/hr Documented by: Surface Tension Infusion Flowsheet Document 04/25/19 09:07 MARCO (Rec: 04/25/19 09:07 MARCO [email or web address]) Infusion Queries Infusion Dose 167 IV Rate 167 Infusion Cumulative Dose 7500 Increase/Decrease Started/Increased Elapsed Time 12h 46m Intake Queries Container Volume 250 Total Intake (Rx) 1,500 Volume Adjusted/Wasted 0 Infusion: 04/25/19 05:44 Dose: 0 mls/hr, 0 mls/hr Documented by: Sifteo Infusion Flowsheet Document 04/25/19 05:44 STA (Rec: 04/25/19 05:44 STA [id number]) Infusion Queries Infusion Dose 0 IV Rate 0 Infusion Cumulative Dose 7500 Increase/Decrease Infused Elapsed Time 12h 46m Intake Queries Container Volume 0 Infusion Intake 250 Cumulative Intake 250 Total Intake (Rx) 1,500 Volume Adjusted/Wasted 0 Admin: 04/25/19 03:22 Dose: 166.6 mls/hr, 166.6 mls/hr Documented by: Sifteo Infusion Flowsheet Document 04/25/19 03:22 STA (Rec: 04/25/19 03:22 STA [email or web address]) Infusion Queries Infusion Dose 166.6 IV Rate 166.6 Infusion Cumulative Dose 6250 Increase/Decrease Started/Decreased Elapsed Time 10h 24m Intake Queries Container Volume 250 Total Intake (Rx) 1,250 Volume Adjusted/Wasted 0 Infusion: 04/24/19 21:15 Dose: 0 mls/hr, 0 mls/hr Documented by: Sifteo Infusion Flowsheet Document 04/24/19 21:15 STA (Rec: 04/24/19 22:22 STA [id number]) Infusion Queries Infusion Dose 0 IV Rate 0 Infusion Cumulative Dose 6250 Increase/Decrease Infused Elapsed Time 10h 24m Intake Queries Container Volume 0 Infusion Intake 250 Cumulative Intake 250 Total Intake (Rx) 1,250 Volume Adjusted/Wasted 0 Admin: 04/24/19 17:47 Dose: 167 mls/hr, 167 mls/hr Documented by: Surface Tension Infusion Flowsheet Document 04/24/19 17:47 MARCO (Rec: 04/24/19 17:47 MARCO [id number]) Infusion Queries Infusion Dose 167 IV Rate 167 Infusion Cumulative Dose 5000 Increase/Decrease Started/Increased Elapsed Time 6h 56m Intake Queries Container Volume 250 Total Intake (Rx) 1,000 Volume Adjusted/Wasted 0 Infusion: 04/24/19 12:00 Dose: 0 mls/hr, 0 mls/hr Documented by: Surface Tension Infusion Flowsheet Document 04/24/19 12:00 MARCO (Rec: 04/24/19 15:20 MARCO [id number]) Infusion Queries Infusion Dose 0 IV Rate 0 Infusion Cumulative Dose 5000 Increase/Decrease Infused Elapsed Time 6h 56m Intake Queries Container Volume 0 Infusion Intake 250 Cumulative Intake 250 Total Intake (Rx) 1,000 Volume Adjusted/Wasted 0 Admin: 04/24/19 10:09 Dose: 166.6 mls/hr, 166.6 mls/hr Documented by: Surface Tension Infusion Flowsheet Document 04/24/19 10:09 MARCO (Rec: 04/24/19 10:10 MARCO [id number]) Infusion Queries Infusion Dose 166.6 IV Rate 166.6 Infusion Cumulative Dose 3750 Increase/Decrease Started/Decreased Elapsed Time 5h 5m Intake Queries Container Volume 250 Total Intake (Rx) 750 Volume Adjusted/Wasted 0 Infusion: 04/24/19 05:00 Dose: 0 mls/hr, 0 mls/hr Documented by: Surface Tension Infusion Flowsheet Document 04/24/19 05:00 MARCO (Rec: 04/24/19 09:16 MARCO [id number]) Infusion Queries Infusion Dose 0 IV Rate 0 Infusion Cumulative Dose 3750 Increase/Decrease Infused Elapsed Time 5h 5m Intake Queries Container Volume 0 Infusion Intake 250 Cumulative Intake 250 Total Intake (Rx) 750 Volume Adjusted/Wasted 0 Admin: 04/24/19 02:55 Dose: 167 mls/hr, 167 mls/hr Documented by: JUSTIN Infusion Flowsheet Document 04/24/19 02:55 BUD (Rec: 04/24/19 02:55 [facility] [email or web address]) Infusion Queries Infusion Dose 167 IV Rate 167 Infusion Cumulative Dose 2500 Increase/Decrease Started/Running Elapsed Time 3h 0m Intake Queries Container Volume 250 Total Intake (Rx) 500 Volume Adjusted/Wasted 0 Infusion: 04/23/19 19:11 Dose: 167 mls/hr, 167 mls/hr Documented by: JUSTIN Infusion Flowsheet Document 04/23/19 19:11 HHO (Rec: 04/24/19 02:55 O [email or web address]) Infusion Queries Infusion Dose 167 IV Rate 167 Infusion Cumulative Dose 2500 Increase/Decrease Infused Elapsed Time 3h 0m Intake Queries Container Volume 0 Infusion Intake 250 Cumulative Intake 250 Total Intake (Rx) 500 Volume Adjusted/Wasted 0 Admin: 04/23/19 17:41 Dose: 167 mls/hr, 167 mls/hr Documented by: CAMRYN Infusion Flowsheet Document 04/23/19 17:41 JSI (Rec: 04/23/19 17:41 JSI [id number]) Infusion Queries Infusion Dose 167 IV Rate 167 Infusion Cumulative Dose 1250 Increase/Decrease Started/Increased Elapsed Time 1h 30m Intake Queries Container Volume 250 Total Intake (Rx) 250 Volume Adjusted/Wasted 0 Infusion: 04/23/19 12:18 Dose: 0 mls/hr, 0 mls/hr Documented by: MAGNUS Infusion Flowsheet Document 04/23/19 12:18 ACR (Rec: 04/23/19 12:33 ACR [id number]) Infusion Queries Infusion Dose 0 IV Rate 0 Infusion Cumulative Dose 1250 Increase/Decrease Infused Elapsed Time 1h 30m Intake Queries Container Volume 0 Infusion Intake 250 Cumulative Intake 250 Total Intake (Rx) 250 Volume Adjusted/Wasted 0 Admin: 04/23/19 10:48 Dose: 166.67 mls/hr, 166.67 mls/hr Documented by: MAGNUS Infusion Flowsheet Document 04/23/19 10:48 ACR (Rec: 04/23/19 10:48 ACR [id number]) Infusion Queries Infusion Dose 166.67 IV Rate 166.67 Increase/Decrease Started Elapsed Time 0m Intake Queries Container Volume 250 Volume Adjusted/Wasted 0 Vancomycin HCl 1,250 mg/ (Dextrose) 250 mls @ 166.667 mls/hr IV NOW ONE Stop: 04/26/19 20:59 Last Infusion: 03/04/20 22:06 Dose: 0 ml/hr, 0 mls/hr Documented by: ALEJANDROciValue Infusion Flowsheet Document 04/26/19 22:06 STA (Rec: 04/26/19 22:39 STA [id number]) Infusion Queries Infusion Dose 0 IV Rate 0 Infusion Cumulative Dose 1250 Increase/Decrease Infused Elapsed Time 1h 30m Intake Queries Container Volume 0 Infusion Intake 250 Cumulative Intake 250 Total Intake (Rx) 250 Volume Adjusted/Wasted 0 Admin: 04/26/19 20:36 Dose: 166.67 ml/hr, 166.67 mls/hr Documented by: ALEJANDROciValue Infusion Flowsheet Document 04/26/19 20:36 STA (Rec: 04/26/19 20:36 STA [email or web address]) Infusion Queries Infusion Dose 166.67 IV Rate 166.67 Increase/Decrease Started Elapsed Time 0m Intake Queries Container Volume 250 Volume Adjusted/Wasted 0 Vancomycin HCl 1,000 mg/ (Dextrose) 250 mls @ 166.667 mls/hr IV Q8A JENNIFER Stop: 05/04/19 01:59 Last Infusion: 04/27/19 13:04 Dose: 0 ml/hr, 0 mls/hr Documented by: SARA Infusion Flowsheet Document 04/27/19 13:04 SLA (Rec: 04/28/19 01:27 SLA [id number]) Infusion Queries Infusion Dose 0 IV Rate 0 Infusion Cumulative Dose 2000 Increase/Decrease Infused Elapsed Time 3h 1m Intake Queries Container Volume 0 Infusion Intake 6 Cumulative Intake 250 Total Intake (Rx) 500 Volume Adjusted/Wasted 0 Infusion: 04/27/19 13:01 Dose: 166.67 ml/hr, 166.67 mls/hr Documented by: EDMUNDE Infusion Flowsheet Document 04/27/19 13:01 SLA (Rec: 04/28/19 01:27 SLA [id number]) Infusion Queries Infusion Dose 166.67 IV Rate 166.67 Infusion Cumulative Dose 1976 Increase/Decrease Resumed/Increased Elapsed Time 2h 58m Intake Queries Container Volume 6 Infusion Intake 0 Cumulative Intake 244 Total Intake (Rx) 494 Volume Adjusted/Wasted 0 Infusion: 04/27/19 13:00 Dose: 0 ml/hr, 0 mls/hr Documented by: SUSAN Infusion Flowsheet Document 04/27/19 13:00 MARCO (Rec: 04/27/19 15:17 MARCO [id number]) Infusion Queries Infusion Dose 0 IV Rate 0 Infusion Cumulative Dose 1976 Increase/Decrease Paused Elapsed Time 2h 58m Intake Queries Container Volume 6 Infusion Intake 244 Cumulative Intake 244 Total Intake (Rx) 494 Volume Adjusted/Wasted 0 Admin: 04/27/19 11:32 Dose: 166.6 mls/hr Documented by: JUMANA Infusion Flowsheet Document 04/27/19 11:32 BNJ (Rec: 04/27/19 11:32 BNJ [id number]) Infusion Queries IV Rate 166.6 Infusion Cumulative Dose 1000 Increase/Decrease Started/Decreased Elapsed Time 1h 30m Intake Queries Container Volume 250 Total Intake (Rx) 250 Volume Adjusted/Wasted 0 Infusion: 04/27/19 02:39 Dose: 0 ml/hr, 0 mls/hr Documented by: OCTAVIANO Infusion Flowsheet Document 04/27/19 02:39 STA (Rec: 04/27/19 04:13 STA [id number]) Infusion Queries Infusion Dose 0 IV Rate 0 Infusion Cumulative Dose 1000 Increase/Decrease Infused Elapsed Time 1h 30m Intake Queries Container Volume 0 Infusion Intake 250 Cumulative Intake 250 Total Intake (Rx) 250 Volume Adjusted/Wasted 0 Admin: 04/27/19 01:09 Dose: 166.67 ml/hr, 166.67 mls/hr Documented by: OCTAVIANO Infusion Flowsheet Document 04/27/19 01:09 ALEJANDRO (Rec: 04/27/19 01:09 STA [email or web address]) Infusion Queries Infusion Dose 166.67 IV Rate 166.67 Increase/Decrease Started Elapsed Time 0m Intake Queries Container Volume 250 Volume Adjusted/Wasted 0 Albumin Human (Albuminar-25 Rtu Inj 12.5 Gm/50 Ml Premix) 12.5 gm in 50 mls @ 50 mls/hr IV Q1H JENNIFER; Protocol Stop: 04/27/19 11:59 Last Infusion: 04/27/19 15:00 Dose: 0 ml/hr, 0 mls/hr Documented by: SUSAN Infusion Flowsheet Document 04/27/19 15:00 MARCO (Rec: 04/27/19 19:57 MAROC [id number]) Infusion Queries Infusion Dose 0 IV Rate 0 Infusion Cumulative Dose 24.5 Increase/Decrease Paused Elapsed Time 1h 57m Intake Queries Container Volume 2 Infusion Intake 48 Cumulative Intake 48 Total Intake (Rx) 98 Volume Adjusted/Wasted 0 Admin: 04/27/19 14:03 Dose: 50 ml/hr, 50 mls/hr Documented by: SUSAN Infusion Flowsheet Document 04/27/19 14:03 MARCO (Rec: 04/27/19 14:03 [facility] [id number]) Infusion Queries Infusion Dose 50 IV Rate 50 Infusion Cumulative Dose 12.5 Increase/Decrease Started/Running Elapsed Time 1h 0m Intake Queries Container Volume 50 Total Intake (Rx) 50 Volume Adjusted/Wasted 0 Infusion: 04/27/19 12:29 Dose: 50 ml/hr, 50 mls/hr Documented by: SUSAN Infusion Flowsheet Document 04/27/19 12:29 MARCO (Rec: 04/27/19 14:03 [facility] [email or web address]) Infusion Queries Infusion Dose 50 IV Rate 50 Infusion Cumulative Dose 12.5 Increase/Decrease Infused Elapsed Time 1h 0m Intake Queries Container Volume 0 Infusion Intake 50 Cumulative Intake 50 Total Intake (Rx) 50 Volume Adjusted/Wasted 0 Admin: 04/27/19 11:29 Dose: 50 ml/hr, 50 mls/hr Documented by: JUMANA Infusion Flowsheet Document 04/27/19 11:29 XAVIER (Rec: 04/27/19 11:29 [facility] [email or web address]) Infusion Queries Infusion Dose 50 IV Rate 50 Increase/Decrease Started Elapsed Time 0m Intake Queries Container Volume 50 Volume Adjusted/Wasted 0 Iron Sucrose (Venofer Inj/Pf 100 Mg/5 Ml Sdv) 100 mg IV NOW ONE Stop: 04/23/19 05:54 Last Admin: 04/23/19 07:14 Dose: 100 mg Documented by: JUSTIN Lorazepam (Ativan Inj 2 Mg/1 Ml Vial) 1 mg IV Q6HP PRN PRN Reason: ANXIETY/AGITATION Stop: 05/01/19 10:58 Last Admin: 04/24/19 12:24 Dose: 1 mg Documented by: SUSAN Magnesium Oxide (Mag-Ox 400 Mg Tablet) 400 mg PO DAILY JENNIFER Stop: 05/24/19 09:59 Last Admin: 04/26/19 09:29 Dose: 400 mg Documented by: Admin: 04/25/19 09:07 Dose: 400 mg Documented by: Admin: 04/24/19 09:11 Dose: 400 mg Documented by: SUSAN Methylprednisolone Sodium Succinate (Solu-Medrol Inj/Pf 125 Mg/2 Ml Sdv) 125 mg IV NOW ONE Stop: 04/22/19 23:35 Last Admin: 04/22/19 23:47 Dose: 125 mg Documented by: RICHA Methylprednisolone Sodium Succinate (Solu-Medrol Inj/Pf 40 Mg/1 Ml Sdv) 40 mg IV Q12 JENNIFER Stop: 05/23/19 10:14 Last Admin: 04/26/19 09:30 Dose: 40 mg Documented by: Admin: 04/25/19 21:15 Dose: 40 mg Documented by: Admin: 04/25/19 09:08 Dose: 40 mg Documented by: Admin: 04/24/19 21:02 Dose: 40 mg Documented by: Admin: 04/24/19 09:11 Dose: 40 mg Documented by: Admin: 04/23/19 22:00 Dose: 40 mg Documented by: Admin: 04/23/19 10:48 Dose: 40 mg Documented by: MAGNUS Morphine Sulfate (Morphine 10 Mg/Ml Inj) 1 mg IV NOW ONE Stop: 04/24/19 17:01 Last Admin: 04/24/19 16:44 Dose: 1 mg Documented by: SUSAN Pain Assessment Document 04/24/19 16:44 MARCO (Rec: 04/24/19 16:46 [facility] [email or web address]) Pain Level Pain Scale Used Adult (verbal) Pain Level 5 Non Verbal Pain Queues None Noted Pain Relief Techniques Medication Pain Location/Description Pain Location Head Pain Type Acute Re-Assess: Pain Assessment Document 04/24/19 17:40 MARCO (Rec: 04/24/19 19:20 A [id number]) Pain Level Pain Scale Used Adult (verbal) Pain Level 3 Non Verbal Pain Queues None Noted Pain Relief Techniques Medication Pain Location/Description Pain Location Head Pain Type Acute Piperacillin Sod/Tazobactam Sod (Zosyn Inj 3.375 Gm Vial) 3.375 gm IV IVBAG (ED) ONE Stop: 04/23/19 01:05 Last Admin: 04/23/19 01:32 Dose: 3.375 gm Documented by: CLARISSAC Antibiotics Document 04/23/19 01:32 SSP (Rec: 04/23/19 01:32 SSP [email or web address]) Blood Cultures Were blood cultures obtained prior to Yes giving antibiotics? Time blood cultures were obtained 23:00 Date blood cultures were obtained 04/22/19 Infusion Flowsheet Document 04/23/19 01:32 SSP (Rec: 04/23/19 01:32 [facility] [email or web address]) Comment Infusion Comment end time 0200 Prednisone (Deltasone 20 Mg Tablet) 20 mg PO BID JENNIFER Stop: 05/23/19 09:59 Last Admin: 04/23/19 10:59 Dose: Not Given Documented by: MAGNUS Non-Admin Reason: DC per MD Order Tramadol HCl (Ultram 50 Mg Tablet) 50 mg PO NOW ONE Stop: 04/23/19 00:52 Last Admin: 04/23/19 01:03 Dose: 50 mg Documented by: RICHA Pain Assessment Document 04/23/19 01:03 SSP (Rec: 04/23/19 01:03 [facility]SP [email or web address]) Pain Level Pain Scale Used Adult (verbal) Pain Level 5 Non Verbal Pain Queues None Noted Pain Relief Techniques Medication Pain Location/Description Pain Location Head Re-Assess: Pain Assessment Document 04/23/19 02:10 SSP (Rec: 04/23/19 02:10 [facility] [email or web address]) Pain Level Pain Scale Used Adult (verbal) Pain Level 4 Non Verbal Pain Queues None Noted Pain Relief Techniques Medication Pain Location/Description Pain Location Head Vancomycin HCl (Vancocin Inj 1000 Mg Vial) 2,000 mg IV NOW ONE Stop: 04/23/19 01:05 Last Admin: 04/23/19 02:14 Dose: 2,000 mg Documented by: RICHA Infusion Flowsheet Document 04/23/19 02:14 SSP (Rec: 04/23/19 02:14 [facility] [email or web address]) Comment Infusion Comment end time 0500 Current Medication List Generic Name Dose Route Start Last Admin Trade Name Freq PRN Reason Stop Dose Admin Acetaminophen 650 mg 04/23/19 01:17 04/28/19 09:56 Tylenol 325 Mg Tablet PO 05/23/19 01:16 650 mg Q4HP PRN Administration pain or temp greater than 101F Albuterol/Ipratropium 3 ml 04/23/19 03:05 04/27/19 06:55 Duoneb 3 Ml Ampul NEB 05/23/19 03:04 3 ml [id number] PRN Administration SHORTNESS OF BREATH Albuterol/Ipratropium 3 ml 04/26/19 12:00 04/28/19 08:24 Duoneb 3 Ml Ampul NEB 05/26/19 11:59 3 ml RTQ4 JENNIFER Administration Apixaban 5 mg 04/23/19 10:00 04/28/19 10:06 Eliquis 5 Mg Tablet PO 05/23/19 09:59 5 mg BID JENNIFER Administration Aspirin 81 mg 04/24/19 10:00 04/28/19 10:05 Ecotrin 81 Mg Ec Tablet PO 05/24/19 09:59 81 mg DAILY JENNIFER Administration Atorvastatin Calcium 20 mg 04/24/19 10:00 04/28/19 10:05 Lipitor 20 Mg Tablet PO 05/24/19 09:59 20 mg DAILY JENNIFER Administration Budesonide 0.5 mg 04/26/19 20:00 04/28/19 08:24 Pulmicort Neb 0.5 Mg/2 Ml Ampul NEB 05/26/19 19:59 0.5 mg RTQ12 JENNIFER Administration Buspirone HCl 5 mg 04/23/19 22:00 04/28/19 10:06 Buspar 10 Mg Tablet PO 05/23/19 21:59 5 mg Q12 JENNIFER Administration Cetirizine HCl 10 mg 04/24/19 10:00 04/28/19 10:06 Zyrtec 10 Mg Tablet PO 05/24/19 09:59 10 mg DAILY JENNIFER Administration Citalopram Hydrobromide 40 mg 04/24/19 10:00 04/28/19 10:05 Celexa 20 Mg Tablet PO 05/24/19 09:59 40 mg DAILY JENNIFER Administration Cyanocobalamin 1,000 mcg 04/24/19 10:00 04/28/19 10:06 Vitamin B-12 1000 Mcg Tablet PO 05/24/19 09:59 1,000 mcg DAILY JENNIFER Administration Ferrous Sulfate 325 mg 04/24/19 10:00 04/28/19 10:05 Feosol 325 Mg Tablet PO 05/24/19 09:59 325 mg DAILY JENNIFER Administration Fluticasone Propionate 2 spray 04/23/19 10:00 04/28/19 10:08 Flonase Nasal [place] 50 Mcg/[place] 16 Gm NASL 05/23/19 09:59 2 spray Q12 JENNIFER Administration Furosemide 60 mg 04/27/19 10:00 04/28/19 10:07 Lasix 40 Mg Tablet PO 05/27/19 09:59 60 mg BID JENNIFER Administration Guaifenesin 600 mg 04/26/19 22:00 04/28/19 10:06 Mucinex Sr 600 Mg Tablet.Sa PO 05/26/19 21:59 600 mg Q12 JENNIFER Administration Hydralazine HCl 10 mg 04/23/19 01:17 Apresoline Inj/Pf 20 Mg/1 Ml Sdv IV 05/23/19 01:16 Q6HP PRN Sbp>160 Doxycycline Hyclate 100 mg/ 250 mls @ 125 mls/hr 04/27/19 18:00 04/28/19 06:02 Dextrose IV 05/04/19 17:59 125 mls/hr Q12A JENNIFER 125 mls/hr Administration Ertapenem 1 gm/ Sodium 50 mls @ 100 mls/hr 04/28/19 10:00 04/28/19 10:30 Chloride IV 05/05/19 09:59 100 mls/hr DAILY JENNIFER 100 mls/hr Administration Levothyroxine Sodium 0.112 mg 04/24/19 06:00 04/28/19 05:11 Synthroid 0.112 Mg Tablet PO 05/24/19 05:59 0.112 mg Q6AM JENNIFER Administration Lorazepam 1 mg 04/25/19 08:37 04/27/19 20:12 Ativan Inj 2 Mg/1 Ml Vial IV 05/02/19 08:36 1 mg Q6HP PRN Administration ANXIETY/AGITATION Melatonin 3 mg 04/23/19 21:48 04/24/19 22:41 Melatonin 3 Mg Tablet PO 05/23/19 21:47 3 mg HSP PRN Administration SLEEP OR INSOMNIA Methylprednisolone Sodium Succinate 40 mg 04/26/19 14:00 04/28/19 05:10 Solu-Medrol Inj/Pf 40 Mg/1 Ml Sdv IV 05/26/19 13:59 40 mg Q8 JENNIFER Administration Morphine Sulfate 2 mg 04/25/19 08:38 04/27/19 19:27 Morphine 10 Mg/Ml Inj IV 05/02/19 08:37 2 mg Q6HP PRN Administration FOR PAIN SCALE 4-5 Pantoprazole Sodium 40 mg 04/24/19 06:00 04/28/19 05:[address] Tablet PO 05/24/19 05:59 40 mg Q6AM JENNIFER Administration Potassium Chloride 20 meq 04/23/19 22:00 04/27/19 21:16 Klor-Con 10 Meq Tablet Er PO 05/23/19 21:59 20 meq Q12 JENNIFER Administration Roflumilast 500 mcg 04/24/19 10:00 04/28/19 10:05 Daliresp 500 Mcg Tablet PO 05/24/19 09:59 500 mcg DAILY JENNIFER Administration Ropinirole HCl 2 mg 04/23/19 14:00 04/28/19 05:11 Requip 2 Mg Tablet PO 05/23/19 13:59 2 mg Q8 JENNIFER Administration Sodium Chloride 2.5 ml 04/23/19 06:00 04/28/19 05:15 Saline Flush 2.5 Ml Monoject Prefil Syrin IV 05/23/19 05:59 2.5 ml Q8 JENNIFER Administration Throat Lozenges 1 each 04/23/19 06:47 04/23/19 06:55 Chloraseptic Sore Throat Lozenge BUCCAL 05/23/19 06:46 1 each Q8HP PRN Administration FOR SORE THROAT EKG Comments: EKG missing from chart. There is a scanned copy reviewed in the computer. Personal interpretation 04/22/2019 at [id number] pacing 80 bpm underlying atrial fibrillation, very difficult to appreciate actual QRS with a scanned copy labeled as 126 ms, QTC 503. last outpt ekg 03/2019 with vpaced rhythm, underlying afib, rv pacing with qrs 164ms Impressions: Chest X-Ray 04/26/19 00:00 IMPRESSION: Increased bilateral basilar predominant pleural and parenchymal opacities. Differential considerations include multifocal pneumonia and CHF/ pulmonary edema. Status: Imported from PACS Assessment & Plan - Diagnosis (1) Acute respiratory failure with hypoxia and hypercapnia Is this a current diagnosis for this admission?: Yes (2) Pneumonia Qualifiers: Pneumonia type: due to unspecified organism Laterality: right Lung location: lower lobe of lung Qualified Code(s): J18.9 - Pneumonia, unspecified organism Is this a current diagnosis for this admission?: Yes (3) Acute on chronic diastolic (congestive) heart failure Is this a current diagnosis for this admission?: Yes (4) Longstanding persistent atrial fibrillation Is this a current diagnosis for this admission?: Yes (5) Hypercholesterolemia Is this a current diagnosis for this admission?: Yes (6) COPD exacerbation Is this a current diagnosis for this admission?: Yes (7) HTN (hypertension) Qualifiers: Hypertension type: essential hypertension Qualified Code(s): I10 - Essential (primary) hypertension Is this a current diagnosis for this admission?: Yes (8) Hypothyroidism Qualifiers: Hypothyroidism type: unspecified Qualified Code(s): E03.9 - Hypothyroidism, unspecified Is this a current diagnosis for this admission?: Yes - Notes Notes: Acute on chronic respiratory failure, hypoxemia and hypercapnia in the setting of advanced COPD oxygen and steroid-dependent; PNA Patient was discharged and readmitted within 24 hours for worsening pneumonia symptoms. Defer to primary team as well as infectious disease for further management The patient had preserved renal function with elevated BNP on admission. She has a history of chronic diastolic heart failure. Recommend switching her from p.o. Lasix to IV dosing every 12 with strict I's and O's and daily weights. Please monitor electrolytes and kidney function closely trying to keep K around 4 and mag around 2. Acute on chronic diastolic heart failure, longstanding persistent atrial fibrillation Patient with history of AV alessandro ablation in the recent past prolonged hospitalization at [facility] from December to February. -Her transthoracic echocardiogram is truly nondiagnostic at this time and there is truly no way to make an accurate LV assessment without echo contrast- enhancing agent which is not available at this hospital; nor is the diastolic assessment accurate in the setting of her persistent atrial fibrillation. The patient has recent AV alessandro ablation rendering her 100% dependent on RV pacing with a wide left bundle branch block on EKG in the outpatient setting of 160 ms. As an outpatient she should certainly be evaluated by electrophysiology for upgrade of her device to [employer] for management of her heart failure symptoms. At this time the patient is being treated for pneumonia and should have her Lasix converted to IV dosing. Continue Eliquis 5 mg twice daily. Patient has no specific indication for additional therapy with aspirin 81 mg daily at this time. -Strict I's and O's, daily weights, heart healthy sodium restricted diet. Hypertension -Continue outpatient antihypertensive regimen as tolerated. Hyperlipidemia -New outpatient statin therapy dosing. Thank you for the consultation. Dr. Cerrato will resume following Wednesday morning if the patient is still hospitalized. Please call with questions.
[2019-04-28] MEDS: POTASSIUM CHLORIDE 10 MEQ TABLET.ER PO SCH ×2 (12:08→21:20)
--- NOTE | 2019-04-28 14:30 | PDOC PROGRESS REPORT ---
Subjective Progress Note for:: 04/28/19 Subjective:: This morning, patient still endorses shortness of breath. She is willing to try eating some food. Denies any chest pain at this time. States that breathing is better as she does not move but starts having trouble breathing when she moves. Still feels very depressed about her recent loss. Reason For Visit: COPD EXACERBATION PNEUMONIA Physical Exam Vital Signs: Temp Pulse Resp BP Pulse Ox 97.3 F 82 33 H 117/66 82 L 04/28/19 12:13 04/28/19 12:13 04/28/19 12:13 04/28/19 12:13 04/28/19 12:13 Intake & Output 04/27/19 04/28/19 04/29/19 06:59 06:59 06:59 Intake Total 1150 1698 Output Total 1710 950 Balance -560 748 Weight 100.4 kg 99.2 kg General appearance: PRESENT: cooperative, mild distress Neck exam: ABSENT: JVD Respiratory exam: PRESENT: clear to auscultation armand, decreased breath sounds, symmetrical, tachypnea, unlabored. ABSENT: accessory muscle use, wheezes GI/Abdominal exam: PRESENT: normal bowel sounds, soft. ABSENT: rebound, rigid, tenderness Extremities exam: ABSENT: pedal edema Neurological exam: PRESENT: alert, awake, oriented to person, oriented to place, oriented to time Results Laboratory Results: 04/27/19 04:20 04/27/19 04:20 04/23/19 00:25 Blood Blood Culture - Final NO GROWTH IN 5 DAYS 04/22/19 23:10 Blood Blood Culture - Final NO GROWTH IN 5 DAYS 04/22/19 04/27/19 23:10 04:20 Troponin I < 0.012 NT-Pro-B Natriuret Pep 1520 H 705 H Impressions: Chest X-Ray 04/26/19 00:00 IMPRESSION: Increased bilateral basilar predominant pleural and parenchymal opacities. Differential considerations include multifocal pneumonia and CHF/ pulmonary edema. Assessment and Plan - Diagnosis (1) Pneumonia Qualifiers: Pneumonia type: due to unspecified organism Laterality: right Lung location: lower lobe of lung Qualified Code(s): J18.9 - Pneumonia, unspecified organism Is this a current diagnosis for this admission?: Yes Plan: I have changed antibiotic regimen to doxycycline and ertapenem per recommendation of infectious disease. Patient has been on IV antibiotics broad- spectrum initially Vanco cefepime for several days now and is showing only little improvement in respiratory status. (2) COPD exacerbation Is this a current diagnosis for this admission?: Yes Plan: till having acute on chronic hypoxic hypercapnic respiratory failure. We will try to wean BiPAP today to high flow nasal cannula and increase to flow rate as well as the FiO2 on the high flow to see if patient can at least tolerat e being on high flow nasal cannula long enough to eat and take her oral medications. Continue nebulizers and steroids IV for treatment of COPD exacerbation. (3) Anxiety and depression Is this a current diagnosis for this admission?: Yes Plan: Patient's anxiety may be playing a role in her persistent tachypnea and her respiratory issues. I will increase her buspirone to 10 mg every 12 hours and continue her Celexa. I have also consulted psychiatry for evaluation to help with her depression and her bereavement in light of her recent loss of her . (4) Myelodysplasia (myelodysplastic syndrome) Is this a current diagnosis for this admission?: Yes Plan: There is history of myelo dysplasia documented in previous reports. However patient's chronic leukocytosis does not quite fit with this diagnosis. Patient will definitely need to follow-up outpatient with her intelligence specialist for further evaluation. (5) Heart failure Qualifiers: Heart failure type: diastolic Heart failure chronicity: unspecified Qualified Code(s): I50.30 - Unspecified diastolic (congestive) heart failure Is this a current diagnosis for this admission?: Yes Plan: Likely chronic diastolic heart failure. Echocardiogram showing ejection fraction of 55 to 60% with grade 3 diastolic dysfunction but RVSP is only 30 to 40 mmHg. Blood pressure remains optimized throughout most of patient's stay. Evaluated by cardiology who is recommending changing patient's Lasix 60 mg daily from p.o. to IV. Changes made. Monitor closely for dehydration as patient is still not eating much due to BiPAP dependency. (6) Longstanding persistent atrial fibrillation Is this a current diagnosis for this admission?: Yes Plan: Continue Eliquis. Rate control is adequate. - Time Time Spent with patient: 15-24 minutes
--- NOTE | 2019-04-28 16:44 | PSYCHOLOGICAL NOTE ---
Psych Note - Psych Note Date seen by psych provider: 04/28/19 Time seen by psych provider: 16:00 Psych Note: Reason for Consult: Grief, depression Patient reports her just last (04/20/2019). She is struggling with acute stress and grief at this time. Patient is current unable to true discuss her grief. Clinician provided psychoeducation on the process of grief and to understand normal cycling and ranges of emotions. Patient is alert and orientated to person, place, time and circumstance. Mood is depressed with tearful affect. Patient denies suicidal and homicidal ideation. Delusions are absent and behaviors congruent with an intact reality based presentation ie organized and linear thought process. Eye contact is well-maintained. Conversational speech is difficult to understand at time due to patient wearing bipap mask. Intellectual abilities appear to be within the average range. Attention and concentration are fair. Insight, judgment, impulse control are fair. Medication recommendations per [facility]'s contracted psychiatrist Dr. Violet JACOBSEN are as follows please decrease Celexa to 20mg daily for 5 days then discontinue Please decrease Buspar to 5mg twice daily Please start Depakote 250mg twice daily Impression\plan: Patient is cleared from acute psychiatric services. She is currently suffering from acute stress and grief at this time. Patient's just 8 days ago. Patient is struggling with grief and feeling responsible for the as he from pneumonia which she was sick with and he was visiting her. Clinician did provide psychoeducation on the grief process. Medication recommendations have been provided. At this time patient therapeutically would find more healing talking with friends and loved ones as she is currently not ready to engage with the clinician. If patient would like to speak with the behavioral health team at any time please reconsult. Dr. Morrison was consulted to care management of this patient; attending physicians in agreement with recommendations and disposition.
[2019-04-28] MEDS: BENZOCAINE/MENTHOL SORE THROAT LOZENGE BUCCAL PRN (17:47)
[2019-04-28] MEDS: FUROSEMIDE INJ/PF 100 MG/10 ML SDV IV SCH (17:47)
[2019-04-28] MEDS: MORPHINE SULFATE 10 MG/ML INJ IV PRN (17:58)
[2019-04-28] MEDS ORDERED: FUROSEMIDE INJ/PF 20 MG/2 ML SDV IV SCH (18:00)
[2019-04-28] MEDS: LORAZEPAM INJ 2 MG/1 ML VIAL IV PRN (21:19)
[2019-04-28] MEDS: MELATONIN 3 MG TABLET PO PRN (21:19)
[2019-04-29] MEDS: IPRATROPIUM/ALBUTEROL 0.5-2.5 MG/3 ML AMPUL NEB SCH ×6 (00:20→20:54)
[2019-04-29] MEDS: DOXYCYCLINE HYCLATE 100 MG in DEXTROSE 5%-WATER 250 ML IV SCH ×2 (05:49→17:08)
[2019-04-29] MEDS: METHYLPREDNISOLONE INJ 40 MG/1 ML SDV IV SCH ×2 (05:52→21:10)
[2019-04-29] MEDS: ROPINIROLE HCL 2 MG TABLET PO SCH ×3 (05:52→21:10)
[2019-04-29] MEDS: PANTOPRAZOLE SODIUM 40 MG TABLET.DR PO SCH (05:53)
[2019-04-29] MEDS: LEVOTHYROXINE SODIUM 0.112 MG TABLET PO SCH (05:53)
[2019-04-29 06:08] LABS: HEMOGLOBIN 9.4 g/dL (12.0-15.5); MEAN CORPUSCULAR HEMOGLOBIN 26.9 pg (27.0-33.4); MEAN CORPUSCULAR HGB CONC 32.4 g/dL (32.0-36.0); MEAN CORPUSCULAR VOLUME 83 fl (80-97); PLATELET COUNT 295 10^3/uL (150-450); RED CELL DISTRIBUTION WIDTH 18.9 % (11.5-14.0); WHITE BLOOD COUNT 12.2 10^3/uL (4.0-10.5)
[2019-04-29 06:36] LABS: ANION GAP 8 (5-19); BLOOD UREA NITROGEN 59 mg/dL (7-20); CALCIUM 7.7 mg/dL (8.4-10.2); CARBON DIOXIDE 37 mmol/L (22-30); CHLORIDE 89 mmol/L (98-107); GLUCOSE 121 mg/dL (75-110); POTASSIUM 4.9 mmol/L (3.6-5.0)
[2019-04-29 06:46] LABS: ABSOLUTE LYMPHOCYTES# (MANUAL) 0.1 10^3/uL (0.5-4.7); ABSOLUTE MONOCYTES # (MANUAL) 0.1 10^3/uL (0.1-1.4); BASOPHILS % (MANUAL) 0 % (0-2); EOSINOPHILS % (MANUAL) 0 % (0-6); LYMPHOCYTES % (MANUAL) 1 % (13-45); MONOCYTES % (MANUAL) 1 % (3-13); SEGMENTED NEUTROPHILS % (MAN) 98 % (42-78); TOTAL CELLS COUNTED 100
[2019-04-29 06:47] LABS: ANISOCYTOSIS 2+; OVALOCYTES 1+; PLATELET COMMENT ADEQUATE; POIKILOCYTOSIS 1+; TEAR DROP CELLS SLIGHT; TOXIC GRANULATION 1+
[2019-04-29] MEDS: BUDESONIDE NEB 0.5 MG/2 ML AMPUL NEB SCH ×2 (07:57→20:54)
[2019-04-29] MEDS: CITALOPRAM HYDROBROMIDE 20 MG TABLET PO SCH (10:12)
[2019-04-29] MEDS: GUAIFENESIN 600 MG TABLET.SA PO SCH ×2 (10:12→21:09)
[2019-04-29] MEDS: ATORVASTATIN CALCIUM 20 MG TABLET PO SCH (10:12)
[2019-04-29] MEDS: APIXABAN 5 MG TABLET PO SCH ×2 (10:12→17:08)
[2019-04-29] MEDS: ASPIRIN 81 MG TABLET, ENT COATED PO SCH (10:12)
[2019-04-29] MEDS: BUSPIRONE HCL 10 MG TABLET PO SCH ×2 (10:13→21:09)
[2019-04-29] MEDS: ROFLUMILAST 500 MCG TABLET PO SCH (10:13)
[2019-04-29] MEDS: POTASSIUM CHLORIDE 10 MEQ TABLET.ER PO SCH ×2 (10:13→21:09)
[2019-04-29] MEDS: CYANOCOBALAMIN (VITAMIN B-12) 1,000 MCG TABLET PO SCH (10:13)
[2019-04-29] MEDS: CETIRIZINE 10 MG TABLET PO SCH (10:13)
[2019-04-29] MEDS: FLUTICASONE NASAL SPRAY 50 MCG/SPRY 120 SPRAY/16 GM NASL SCH ×2 (10:13→21:10)
[2019-04-29] MEDS: ERTAPENEM SODIUM 1 GM in NORMAL SALINE 50 ML IV SCH (10:14)
[2019-04-29] MEDS: FERROUS SULFATE 325 MG TABLET PO SCH (10:14)
[2019-04-29] MEDS: FUROSEMIDE INJ/PF 100 MG/10 ML SDV IV SCH ×2 (10:15→17:08)
--- NOTE | 2019-04-29 11:49 | RADIOLOGY REPORT (SQ) ---
EXAM DESCRIPTION: CHEST SINGLE VIEW COMPLETED DATE/TIME: 04/29/2019 11:32 am REASON FOR STUDY: dyspnea COMPARISON: 04/13/2019 EXAM PARAMETERS: NUMBER OF VIEWS: One view. TECHNIQUE: Single frontal radiographic view of the chest acquired. RADIATION DOSE: NA LIMITATIONS: None. FINDINGS: LUNGS AND PLEURA: Extensive peripheral parenchymal opacities throughout both lungs. Left effusion. No pneumothorax. MEDIASTINUM AND HILAR STRUCTURES: No masses. Contour normal. HEART AND VASCULAR STRUCTURES: Heart slightly enlarged. No overt vascular congestion. BONES: No acute findings. HARDWARE: Pacemaker. OTHER: No other significant finding. IMPRESSION: Differential is diffuse pneumonia versus pulmonary edema. TECHNICAL DOCUMENTATION: JOB ID: [id number] 2010 [employer]- All Rights Reserved Reading location - IP/workstation name: [email or web address]
[2019-04-29] MEDS: BENZOCAINE/MENTHOL SORE THROAT LOZENGE BUCCAL PRN (13:23)
--- NOTE | 2019-04-29 17:08 | PDOC PROGRESS REPORT ---
Subjective Progress Note for:: 04/29/19 Subjective:: No adverse events overnight. Patient was back on BiPAP this morning. She is trying to talk over the BiPAP but she looks fatigued. She has had good urine output. Reason For Visit: COPD EXACERBATION PNEUMONIA Physical Exam Vital Signs: Temp Pulse Resp BP Pulse Ox 97.5 F 80 31 H 114/68 89 L 04/29/19 16:32 04/29/19 16:32 04/29/19 16:32 04/29/19 16:32 04/29/19 16:32 Intake & Output 04/28/19 04/29/19 04/30/19 06:59 06:59 07:59 Intake Total 1698 1130 300 Output Total 950 1000 Balance 748 130 300 Weight 99.2 kg 99.2 kg General appearance: PRESENT: cooperative, disheveled, morbidly obese, other - Moderate distress Respiratory exam: PRESENT: crackles - Diffuse, symmetrical. ABSENT: accessory muscle use, prolonged expiratory phas, retraction, rhonchi, tachypnea, unlabored, wheezes Cardiovascular exam: PRESENT: RRR, +S1, +S2 Pulses: PRESENT: normal carotid pulses Vascular exam: PRESENT: normal capillary refill GI/Abdominal exam: PRESENT: normal bowel sounds, soft. ABSENT: distended, guarding, rebound, tenderness Extremities exam: ABSENT: clubbing, pedal edema Musculoskeletal exam: PRESENT: normal inspection. ABSENT: deformity Neurological exam: PRESENT: alert, awake, oriented to person, oriented to place, oriented to situation Psychiatric exam: PRESENT: appropriate affect, normal mood Skin exam: PRESENT: dry, warm Results Laboratory Results: 04/29/19 05:39 04/29/19 05:39 04/29/19 04/29/19 05:39 05:39 WBC 12.2 H RBC 3.50 L Hgb 9.4 L Hct 29.0 L MCV 83 MCH 26.9 L MCHC 32.4 RDW 18.9 H Plt Count 295 Seg Neutrophils % Not Reportable Sodium 134.4 L Potassium 4.9 Chloride 89 L Carbon Dioxide 37 H Anion Gap 8 BUN 59 H Creatinine 1.24 Est GFR ( Amer) 52 L Glucose 121 H Calcium 7.7 L 04/22/19 04/27/19 23:10 04:20 Troponin I < 0.012 NT-Pro-B Natriuret Pep 1520 H 705 H Impressions: Chest X-Ray 04/29/19 00:00 IMPRESSION: Differential is diffuse pneumonia versus pulmonary edema. Assessment and Plan - Diagnosis (1) Acute on chronic diastolic (congestive) heart failure Is this a current diagnosis for this admission?: Yes Plan: On Lasix twice daily, good urine output, cardiology consulted (2) COPD (chronic obstructive pulmonary disease) Qualifiers: COPD type: COPD with acute exacerbation Qualified Code(s): J44.1 - Chronic obstructive pulmonary disease with (acute) exacerbation Is this a current diagnosis for this admission?: Yes Plan: On steroids and bronchodilators along with antibiotics (3) Acute and chronic respiratory failure with hypoxia Is this a current diagnosis for this admission?: Yes Plan: Ventilatory support including BiPAP and high flow nasal cannula to maintain SPO2 greater than 90% (4) Respiratory distress Is this a current diagnosis for this admission?: Yes Plan: She has been on steroids, antibiotics, and Lasix for days, and her chest x-ray perhaps looks a little worse, and is definitely not had any improvement. I am concerned that she has developed, or is in the process of developing, ARDS. We are treating her supportively from a ventilatory standpoint, and are treating the possible underlying etiologies until such time she can recover. We do not have pulmonology available now, but will not hesitate to reach out for a vulcanizing machine operator if she needs one before we have pulmonology available on Wednesday. - Time Time Spent with patient: 25-34 minutes
[2019-04-29] MEDS ORDERED: FLUCONAZOLE 100 MG TABLET PO ONE (21:00)
[2019-04-30] MEDS: MORPHINE SULFATE 10 MG/ML INJ IV PRN ×2 (00:03→18:06)
[2019-04-30] MEDS: IPRATROPIUM/ALBUTEROL 0.5-2.5 MG/3 ML AMPUL NEB SCH ×6 (00:35→20:18)
[2019-04-30] MEDS: DOXYCYCLINE HYCLATE 100 MG in DEXTROSE 5%-WATER 250 ML IV SCH ×2 (06:42→17:03)
[2019-04-30] MEDS: LEVOTHYROXINE SODIUM 0.112 MG TABLET PO SCH (06:42)
[2019-04-30] MEDS: PANTOPRAZOLE SODIUM 40 MG TABLET.DR PO SCH (06:42)
[2019-04-30] MEDS: ROPINIROLE HCL 2 MG TABLET PO SCH ×3 (06:42→21:55)
[2019-04-30] MEDS: BUDESONIDE NEB 0.5 MG/2 ML AMPUL NEB SCH ×2 (08:16→20:17)
[2019-04-30] MEDS: FUROSEMIDE INJ/PF 100 MG/10 ML SDV IV SCH ×2 (09:22→17:03)
[2019-04-30] MEDS: FERROUS SULFATE 325 MG TABLET PO SCH (09:22)
[2019-04-30] MEDS: APIXABAN 5 MG TABLET PO SCH ×2 (09:22→17:03)
[2019-04-30] MEDS: ASPIRIN 81 MG TABLET, ENT COATED PO SCH (09:22)
[2019-04-30] MEDS: POTASSIUM CHLORIDE 10 MEQ TABLET.ER PO SCH ×2 (09:22→21:56)
[2019-04-30] MEDS: ERTAPENEM SODIUM 1 GM in NORMAL SALINE 50 ML IV SCH (09:22)
[2019-04-30] MEDS: ROFLUMILAST 500 MCG TABLET PO SCH (09:22)
[2019-04-30] MEDS: CETIRIZINE 10 MG TABLET PO SCH (09:22)
[2019-04-30] MEDS: GUAIFENESIN 600 MG TABLET.SA PO SCH ×2 (09:22→21:55)
[2019-04-30] MEDS: CITALOPRAM HYDROBROMIDE 20 MG TABLET PO SCH (09:22)
[2019-04-30] MEDS: METHYLPREDNISOLONE INJ 40 MG/1 ML SDV IV SCH ×2 (09:22→21:56)
[2019-04-30] MEDS: ATORVASTATIN CALCIUM 20 MG TABLET PO SCH (09:22)
[2019-04-30] MEDS: CYANOCOBALAMIN (VITAMIN B-12) 1,000 MCG TABLET PO SCH (09:22)
[2019-04-30] MEDS: BUSPIRONE HCL 10 MG TABLET PO SCH ×2 (09:22→21:55)
[2019-04-30] MEDS: FLUTICASONE NASAL SPRAY 50 MCG/SPRY 120 SPRAY/16 GM NASL SCH ×2 (09:23→21:56)
[2019-04-30 10:58] LABS: ANION GAP 6 (5-19); BLOOD UREA NITROGEN 57 mg/dL (7-20); CALCIUM 7.7 mg/dL (8.4-10.2); CARBON DIOXIDE 33 mmol/L (22-30); CHLORIDE 90 mmol/L (98-107); GLUCOSE 208 mg/dL (75-110); POTASSIUM 5.2 mmol/L (3.6-5.0)
--- NOTE | 2019-04-30 17:31 | PDOC PROGRESS REPORT ---
Subjective Progress Note for:: 04/30/19 Subjective:: No adverse events overnight. Patient remains on BiPAP. Tolerating diuresis. Remains on antibiotics per infectious disease recommendations. Reason For Visit: COPD EXACERBATION PNEUMONIA Physical Exam Vital Signs: Temp Pulse Resp BP Pulse Ox 97.3 F 81 25 H 127/72 H 94 04/30/19 16:11 04/30/19 16:11 04/30/19 16:11 04/30/19 16:11 04/30/19 16:11 Intake & Output 04/29/19 04/30/19 05/01/19 05:59 06:59 06:59 Intake Total 885 Output Total 660 Balance 225 Weight General appearance: PRESENT: cooperative, disheveled, morbidly obese, other - Moderate distress Respiratory exam: PRESENT: crackles - Diffuse, symmetrical. ABSENT: accessory muscle use, prolonged expiratory phas, retraction, rhonchi, tachypnea, unlabored, wheezes Cardiovascular exam: PRESENT: RRR, +S1, +S2 Pulses: PRESENT: normal carotid pulses Vascular exam: PRESENT: normal capillary refill GI/Abdominal exam: PRESENT: normal bowel sounds, soft. ABSENT: distended, guarding, rebound, tenderness Extremities exam: ABSENT: clubbing, pedal edema Musculoskeletal exam: PRESENT: normal inspection. ABSENT: deformity Neurological exam: PRESENT: alert, awake, oriented to person, oriented to place, oriented to situation Psychiatric exam: PRESENT: appropriate affect, normal mood Skin exam: PRESENT: dry, warm Results Laboratory Results: 04/29/19 05:39 04/30/19 10:10 04/30/19 10:10 Sodium 129.0 L Potassium 5.2 H Chloride 90 L Carbon Dioxide 33 H Anion Gap 6 BUN 57 H Creatinine 1.11 Est GFR ( Amer) 59 L Glucose 208 H Calcium 7.7 L 04/22/19 04/27/19 23:10 04:20 Troponin I < 0.012 NT-Pro-B Natriuret Pep 1520 H 705 H Impressions: Chest X-Ray 04/29/19 00:00 IMPRESSION: Differential is diffuse pneumonia versus pulmonary edema. Assessment and Plan - Diagnosis (1) Acute on chronic diastolic (congestive) heart failure Is this a current diagnosis for this admission?: Yes Plan: On Lasix twice daily, good urine output, cardiology consulted (2) COPD (chronic obstructive pulmonary disease) Qualifiers: COPD type: COPD with acute exacerbation Qualified Code(s): J44.1 - Chronic obstructive pulmonary disease with (acute) exacerbation Is this a current diagnosis for this admission?: Yes Plan: On steroids and bronchodilators along with antibiotics (3) Acute and chronic respiratory failure with hypoxia Is this a current diagnosis for this admission?: Yes Plan: Ventilatory support including BiPAP and high flow nasal cannula to maintain SPO2 greater than 90% (4) Respiratory distress Is this a current diagnosis for this admission?: Yes Plan: She has been on steroids, antibiotics, and Lasix for days, and her chest x-ray perhaps looks a little worse, and is definitely not had any improvement. I am concerned that she has developed, or is in the process of developing, ARDS. We are treating her supportively from a ventilatory standpoint, and are treating the possible underlying etiologies until such time she can recover. Plan to consult pulmonology tomorrow. - Time Time Spent with patient: 25-34 minutes
[2019-05-01] MEDS: IPRATROPIUM/ALBUTEROL 0.5-2.5 MG/3 ML AMPUL NEB SCH ×6 (00:08→20:15)
[2019-05-01] MEDS: MORPHINE SULFATE 10 MG/ML INJ IV PRN (00:10)
[2019-05-01] MEDS: IPRATROPIUM/ALBUTEROL 0.5-2.5 MG/3 ML AMPUL NEB PRN (01:53)
[2019-05-01] MEDS ORDERED: MORPHINE SULFATE 10 MG/ML INJ IV ONE (02:10)
[2019-05-01] MEDS ORDERED: MORPHINE SULFATE 10 MG/ML INJ IV PRN (02:30)
[2019-05-01] MEDS: PANTOPRAZOLE SODIUM 40 MG TABLET.DR PO SCH (05:59)
[2019-05-01] MEDS: LEVOTHYROXINE SODIUM 0.112 MG TABLET PO SCH (05:59)
[2019-05-01] MEDS: ROPINIROLE HCL 2 MG TABLET PO SCH ×3 (06:00→23:19)
[2019-05-01] MEDS: DOXYCYCLINE HYCLATE 100 MG in DEXTROSE 5%-WATER 250 ML IV SCH ×2 (06:02→19:02)
[2019-05-01] MEDS: BUDESONIDE NEB 0.5 MG/2 ML AMPUL NEB SCH ×2 (08:21→20:15)
--- NOTE | 2019-05-01 09:07 | PDOC PROGRESS REPORT ---
Subjective Progress Note for:: 05/01/19 Subjective:: LEVI GIBBONS is a 69 year old female with prior history of longstanding persistent atrial fibrillation status post AV alessandro ablation, history of single- chamber pacemaker for sick sinus syndrome, advanced COPD on home oxygen, chronic heart failure with preserved ejection fraction, obesity, hypertension, hyperlipidemia who was consulted to our service and initially evaluated by Dr. Ansari for further evaluation and treatment of heart failure. The patient had a prolonged hospitalization at [facility] from 01/11/19-02/27/19 and underwent AVN ablation somewhere during that admission. I am taking over her cardiology care since today. 05/01/2019: The patient feels better today and without any cardiac complaints. She specifically denied chest pain, shortness of breath, palpitations, syncope and presyncope. She is currently being treated with BiPAP with, per the hospitalist service note, slight worsening of her chest x-ray. Studies: Echocardiogram May 2018: Normal left ventricular systolic function, no significant valve disease Reason For Visit: COPD EXACERBATION PNEUMONIA Physical Exam Vital Signs: Temp Pulse Resp BP Pulse Ox 97.3 F 80 29 H 128/73 H 99 05/01/19 03:14 05/01/19 07:00 05/01/19 04:26 05/01/19 03:14 05/01/19 04:26 Intake & Output 04/30/19 05/01/19 05/02/19 06:59 06:59 06:59 Intake Total 1415 Output Total 1360 Balance 55 Weight 99.2 kg General appearance: PRESENT: no acute distress, well-developed, well-nourished Head exam: PRESENT: atraumatic, normocephalic Eye exam: PRESENT: conjunctiva pink, EOMI, PERRLA. ABSENT: scleral icterus Ear exam: PRESENT: normal external ear exam Mouth exam: PRESENT: moist, tongue midline Neck exam: ABSENT: carotid bruit, JVD, lymphadenopathy, thyromegaly Respiratory exam: PRESENT: clear to auscultation armand. ABSENT: rales, rhonchi, wheezes Cardiovascular exam: PRESENT: RRR. ABSENT: bradycardia, diastolic murmur, rubs, systolic murmur Pulses: PRESENT: normal dorsalis pedis pul Vascular exam: PRESENT: normal capillary refill GI/Abdominal exam: PRESENT: normal bowel sounds, soft. ABSENT: distended, guarding, mass, organolmegaly, rebound, tenderness Rectal exam: PRESENT: deferred Extremities exam: PRESENT: full ROM. ABSENT: calf tenderness, clubbing, pedal edema Neurological exam: PRESENT: alert, awake, oriented to person, oriented to place, oriented to time, oriented to situation, CN II-XII grossly intact. ABSENT: motor sensory deficit Psychiatric exam: PRESENT: appropriate affect, normal mood. ABSENT: homicidal ideation, suicidal ideation Skin exam: PRESENT: dry, intact, warm. ABSENT: cyanosis, rash Results Laboratory Results: 04/29/19 05:39 04/30/19 10:10 04/30/19 10:10 Sodium 129.0 L Potassium 5.2 H Chloride 90 L Carbon Dioxide 33 H Anion Gap 6 BUN 57 H Creatinine 1.11 Est GFR ( Amer) 59 L Glucose 208 H Calcium 7.7 L 04/22/19 04/27/19 23:10 04:20 Troponin I < 0.012 NT-Pro-B Natriuret Pep 1520 H 705 H Impressions: Chest X-Ray 04/29/19 00:00 IMPRESSION: Differential is diffuse pneumonia versus pulmonary edema. Assessment & Plan - Diagnosis (1) Heart failure Qualifiers: Heart failure type: diastolic Heart failure chronicity: unspecified Qualified Code(s): I50.30 - Unspecified diastolic (congestive) heart failure Is this a current diagnosis for this admission?: Yes Plan: The patient is currently on IV Lasix 60 mg twice daily with her creatinine now up to a little bit over 1.0. She appears to be euvolemic today and normotensive however she is only 267 cc negative for fluid balance since admission. Recommendations: -Continue with current medical management for now. -Continue to track electrolytes closely. -Low-sodium diet. -Strict intake and output. -We will continue to follow-up with you. (2) COPD (chronic obstructive pulmonary disease) Qualifiers: COPD type: COPD with acute exacerbation Qualified Code(s): J44.1 - Chronic obstructive pulmonary disease with (acute) exacerbation Is this a current diagnosis for this admission?: Yes Plan: She continues to be on BiPAP continuously. I will defer further management to her primary care team. (3) Longstanding persistent atrial fibrillation Is this a current diagnosis for this admission?: Yes Plan: She has a history of sick sinus syndrome status post pacemaker implantation. On telemetry she continues to be ventricularly paced. She is anticoagulated with Eliquis. She remains essentially asymptomatic. Recommendations: -Continue with current medical management. -Continue with anticoagulation.
--- NOTE | 2019-05-01 10:24 | RADIOLOGY REPORT (SQ) ---
EXAM DESCRIPTION: CHEST SINGLE VIEW COMPLETED DATE/TIME: 05/01/2019 10:05 am REASON FOR STUDY: shortness of breath COMPARISON: 04/29/2019 EXAM PARAMETERS: NUMBER OF VIEWS: One view. TECHNIQUE: Single frontal radiographic view of the chest acquired. RADIATION DOSE: NA LIMITATIONS: None. FINDINGS: LUNGS AND PLEURA: Stable chest with diffuse bilateral coarse interstitial and alveolar opa cities, greatest within the right lung. Small left effusion. No pneumothorax. MEDIASTINUM AND HILAR STRUCTURES: Enlarged, stable. Rightward tracheal deviation, stable. HEART AND VASCULAR STRUCTURES: Enlarged cardiac silhouette, stable. BONES: No acute findings. HARDWARE: Single lead left-sided cardiac pacer with lead over right ventricle. OTHER: No other significant finding. IMPRESSION: Stable chest with diffuse bilateral interstitial and alveolar opacities and small left e ffusion. Findings may represent multifocal pneumonia or edema. Stable enlarged cardiac silhouette. TECHNICAL DOCUMENTATION: JOB ID: [id number] 2010 [employer]- All Rights Reserved Reading location - IP/workstation name: [email or web address]
[2019-05-01] MEDS: APIXABAN 5 MG TABLET PO SCH ×2 (11:44→17:54)
[2019-05-01] MEDS: CITALOPRAM HYDROBROMIDE 20 MG TABLET PO SCH (11:55)
[2019-05-01] MEDS: ATORVASTATIN CALCIUM 20 MG TABLET PO SCH (11:55)
[2019-05-01] MEDS: CYANOCOBALAMIN (VITAMIN B-12) 1,000 MCG TABLET PO SCH (11:55)
[2019-05-01] MEDS: ASPIRIN 81 MG TABLET, ENT COATED PO SCH (11:57)
[2019-05-01] MEDS: CETIRIZINE 10 MG TABLET PO SCH (11:57)
[2019-05-01] MEDS: FERROUS SULFATE 325 MG TABLET PO SCH (11:57)
[2019-05-01] MEDS: POTASSIUM CHLORIDE 10 MEQ TABLET.ER PO SCH ×2 (11:57→23:19)
[2019-05-01] MEDS: GUAIFENESIN 600 MG TABLET.SA PO SCH ×2 (11:57→23:19)
[2019-05-01] MEDS: BUSPIRONE HCL 10 MG TABLET PO SCH ×2 (11:57→23:19)
[2019-05-01] MEDS: METHYLPREDNISOLONE INJ 40 MG/1 ML SDV IV SCH ×2 (11:58→23:17)
[2019-05-01] MEDS: FUROSEMIDE INJ/PF 100 MG/10 ML SDV IV SCH ×2 (11:58→17:55)
[2019-05-01 12:54] LABS: INTERNATIONAL RATION (INR) 1.44; PROTHROMBIN TIME 17.7 SEC (11.4-15.4)
[2019-05-01 14:18] LABS: ARTERIAL BLOOD BASE EXCESS 15.5 mmol/L; ARTERIAL BLOOD HCO3 41.8 mmol/L (20-24); ARTERIAL BLOOD O2 SATURATION 93.3 % (94-98); ARTERIAL BLOOD PCO2 63.1 mmHg (35-45); ARTERIAL BLOOD PH 7.44 (7.35-7.45); ARTERIAL BLOOD PO2 67.1 mmHg (80-100); ARTERIAL BLOOD TOTAL CO2 43.7 mmol/L (21-25)
[2019-05-01 14:23] LABS: ARTERIAL BLOOD FIO2 80%
--- NOTE | 2019-05-01 16:30 | PDOC CONSULTATION ---
Consultation Consult Date: 05/01/19 Attending physician:: CECILE MEYER Provider Consulted: ANJEL MAYNARD Consult reason:: Respiratory failure History of Present Illness Admission Date/PCP: 04/23/19 01:31 AGUSTO AGRAWAL DO History of Present Illness: LEVI GIBBONS is a 69 year old female Multiple visits for increasing respiratory failure on this occasion she was brought to the hospital for increasing shortness of breath. She initially responded to oxygen and BiPAP will start on antibiotics as she had a leukocytosis it was also felt that she may have some congestive heart failure and she was subsequently diuresed.However the last several days has had increasing oxygen demands and higher and higher minute ventilation.She denies chest pain cough fevers chills nausea vomiting diarrhea or abdominal pain.He admits to exposure to large amounts of passive smoke as a child. She herself smoked 1 pack a day for 25 years and has not smoked in the last 9 months. She is O2 dependent with chronic hypoxic and hypercapnic respiratory failure noted in the past. Past Medical History Cardiac Medical History: Reports: Atrial Fibrillation, Hypertension, Pulmonary Embolism - 30+yrs ago Denies: Congestive Heart Failure, Coronary Artery Disease, Myocardial Infarction, Hyperlipidema, Peripheral Vascular Disease, Heart Murmur Pulmonary Medical History: Reports: Asthma, Bronchitis, Chronic Obstructive Pulmonary Disease (COPD), Pneumonia, Respiratory Failure, Tuberculosis Denies: Sleep Apnea Neurological Medical History: Denies: Seizures Endocrine Medical History: Reports: Hypothyroidism Denies: Diabetes Mellitus Type 1, Diabetes Mellitus Type 2, Hyperthyroidism Renal/ Medical History: Denies: End Stage Renal Disease Malignancy Medical History: Denies: Lung Cancer GI Medical History: Reports: Gastroesophageal Reflux Disease Denies: Cirrhosis, Crohn's Disease, Diverticulitis, Hepatitis, Hiatal Hernia, Ulcerative Colitis Musculoskeltal Medical History: Reports: Arthritis Denies: Fibromyalgia, Gout Skin Medical History: Denies: Eczema, Psoriasis Psychiatric Medical History: Reports: Depression Denies: Bipolar Disorder, Post Traumatic Stress Disorder Hematology: Reports: Anemia - Myelodysplastic syndrome Denies: Sickle Cell Disease, Bleeding Tendencies Infectious Medical History: Denies: Clostridium Difficile, Methicillin-Resistant Staph Aureus Past Surgical History Past Surgical History: Reports: Hysterectomy, Orthopedic Surgery - Carpal tunnel, ganglion cyst, trigger finger, Tubal Ligation Denies: Amputation, Appendectomy, Section, Cholecystectomy, Coronary Artery Bypass Graft, Gastric Bypass Surgery, Herniorrhaphy, Mastectomy, Pacemaker, Tonsillectomy Social History Information Source: Patient, [facility] Records Lives with: Family Smoking Status: Former Smoker Number of Years Smokin Last Time Smoked: 1 year ago Passive smoke exposure as: Both Frequency of Alcohol Use: None Hx Recreational Drug Use: No Drugs: None Hx Prescription Drug Abuse: No Have you had any respiratory illnesses as a child?: No Have you been exposed to any sick contacts recently?: No Have you travelled outside of [place] in the past 12 months?: No - Advance Directive Resuscitation Status: Full Code Family History Family History: CAD, COPD, DM, Hypertension. denies: Malignancy Parental Family History Reviewed: Yes Children Family History Reviewed: Yes Sibling(s) Family History Reviewed.: Yes Medication/Allergy Home Medications: Albuterol Sulfate [Proair HFA Inhalation Aerosol 8.5 gm MDI] 2 puff IH Q4HP PRN 10/30/18 Aspirin [Ecotrin 81 mg EC Tablet] 81 mg PO DAILY 10/30/18 Budesonide/Formoterol Fumarate [Symbicort HFA 160-4.5 mcg Inhaler 6 gm] 2 puff IH Q12 10/30/18 Citalopram Hydrobromide [Celexa 40 mg Tablet] 40 mg PO DAILY 10/30/18 Pantoprazole Sodium [Protonix [address] Tablet] 40 mg PO Q6AM 10/30/18 Roflumilast [Daliresp 500 mcg Tablet] 500 mcg PO DAILY 10/30/18 Ropinirole HCl [Requip 2 mg Tablet] 2 mg PO Q8 10/30/18 Cyanocobalamin (Vitamin B-12) [Vitamin B-12 1000 mcg Tablet] 1,000 mcg PO DAILY #30 tablet 11/04/18 Ferrous Sulfate [Albafort] 325 mg PO DAILY #30 tablet 11/04/18 Apixaban [Eliquis 5 mg Tablet] 5 mg PO Q12 04/13/19 Buspirone HCl 5 mg PO Q12 04/13/19 Cetirizine HCl [Zyrtec] 10 mg PO DAILY 04/13/19 Furosemide [Lasix 20 mg Tablet] 80 mg PO BIDP PRN 04/13/19 Levothyroxine Sodium [Synthroid 0.112 mg Tablet] 112 mcg PO Q6AM 04/13/19 Magnesium Oxide [Magnesium] 400 mg PO DAILY 04/13/19 Potassium Chloride 20 meq PO BID 04/13/19 Atorvastatin Calcium [Lipitor 20 mg Tablet] 20 mg PO DAILY 04/14/19 Prednisone [Deltasone 20 mg Tablet] 40 mg PO DAILY 4 Days #8 tablet MDD took one dose 04/21/19 Allergies/Adverse Reactions: hydromorphone HCl [From Dilaudid] Allergy (Severe, Verified 04/13/19 21:13) Passed out Review of Systems All systems: reviewed and no additional remarkable complaints except as stated Physical Exam Vital Signs: Temp Pulse Resp BP Pulse Ox 97.5 F 80 24 H 115/79 89 L 05/01/19 11:43 05/01/19 11:43 05/01/19 11:43 05/01/19 11:43 05/01/19 11:43 Intake & Output 04/30/19 05/01/19 05/02/19 06:59 06:59 06:59 Intake Total 1415 Output Total 1360 50 Balance 55 -50 Weight 99.2 kg 97.3 kg General appearance: PRESENT: cooperative, disheveled, obese, well-developed, well-nourished Head exam: PRESENT: atraumatic, normocephalic Eye exam: PRESENT: conjunctiva pale, EOMI. ABSENT: nystagmus, periorbital swelling, scleral icterus Mouth exam: PRESENT: dry mucosa, neck supple, tongue midline Neck exam: ABSENT: carotid bruit, full ROM, JVD, lymphadenopathy, meningismus, tenderness, thyromegaly, tracheal deviation, tracheostomy, other Respiratory exam: PRESENT: decreased breath sounds, prolonged expiratory phas, rhonchi, symmetrical, tachypnea, wheezes. ABSENT: rales, retraction, stridor, unlabored Cardiovascular exam: PRESENT: irregular rhythm Pulses: PRESENT: normal radial pulses GI/Abdominal exam: PRESENT: soft. ABSENT: guarding, mass, organolmegaly, tenderness Extremities exam: ABSENT: calf tenderness, clubbing, joint swelling, pedal edema Musculoskeletal exam: ABSENT: ambulatory, deformity, dislocation Neurological exam: PRESENT: awake Psychiatric exam: PRESENT: flat affect Skin exam: PRESENT: dry, warm Results Laboratory Results: 04/29/19 05:39 04/30/19 10:10 04/22/19 04/27/19 23:10 04:20 Troponin I < 0.012 NT-Pro-B Natriuret Pep 1520 H 705 H Impressions: Chest X-Ray 05/01/19 09:36 IMPRESSION: Stable chest with diffuse bilateral interstitial and alveolar opacities and small left effusion. Findings may represent multifocal pneumonia or edema. Stable enlarged cardiac silhouette. Assessment & Plan - Diagnosis (1) Acute on chronic diastolic (congestive) heart failure Is this a current diagnosis for this admission?: Yes Plan: Patient is subsequently been diuresed and creatinine 0.632 creatinine of 1.21 consider judicious rehydration transfer text (2) COPD (chronic obstructive pulmonary disease) Qualifiers: COPD type: COPD with acute exacerbation Qualified Code(s): J44.1 - Chronic obstructive pulmonary disease with (acute) exacerbation Is this a current diagnosis for this admission?: Yes Plan: Generic Name Dose Route Start Last Admin Trade Name Freq PRN Reason Stop Dose Admin Guaifenesin 600 mg 04/26/19 22:00 05/01/19 11:57 Mucinex Sr 600 Mg Tablet.Sa PO 05/26/19 21:59 600 mg Q12 JENNIFER Budesonide 0.5 mg 04/26/19 20:00 05/01/19 08:21 Pulmicort Neb 0.5 Mg/2 Ml Ampul NEB 05/26/19 19:59 0.5 mg RTQ12 JENNIFER Methylprednisolone Sodium Succinate 40 mg 04/29/19 22:00 05/01/19 11:58 Solu-Medrol Inj/Pf 40 Mg/1 Ml Sdv IV 05/29/19 21:59 40 mg Q12 JENNIFER Albuterol/Ipratropium 3 ml 04/23/19 03:05 05/01/19 01:53 Duoneb 3 Ml Ampul NEB 05/23/19 03:04 3 ml [id number] PRN SHORTNESS OF BREATH Roflumilast 500 mcg 04/24/19 10:00 04/30/19 09:22 Daliresp 500 Mcg Tablet PO 05/24/19 09:59 500 mcg DAILY JENNIFER Fluticasone Propionate 2 spray 04/23/19 10:00 04/30/19 21:56 Flonase Nasal [place] 50 Mcg/Ellabell 16 Gm NASL 05/23/19 09:59 2 spray Q12 JENNIFER Albuterol/Ipratropium 3 ml 04/26/19 12:00 05/01/19 12:03 Duoneb 3 Ml Ampul NEB 05/26/19 11:59 3 ml RTQ4 JENNIFER (3) Longstanding persistent atrial fibrillation Is this a current diagnosis for this admission?: Yes Plan: Aspirin plus Eliquis - Time Total Critical Time (Minutes): 55
--- NOTE | 2019-05-01 16:37 | RADIOLOGY REPORT (SQ) ---
EXAM DESCRIPTION: PICC INSERTION; U/S GUIDE FOR VASCULAR ACCESS COMPLETED DATE/TIME: 05/01/2019 4:30 pm REASON FOR STUDY: Poor IV access and on eliquis.; PICC LINE COMPARISON: None. FLUOROSCOPY TIME: None. Procedure was done at bedside 1 portable chest x-raysaved to PACS. TECHNIQUE: Ultrasound guided PICC placement. LIMITATIONS: None. PROCEDURE: After written consent and assessment were obtained, ultrasound evaluation of potential ac cess sites were performed. After successfully identifying a patent right basilic vein, the right arm was prepped and draped in a sterile fashion along with the ultrasound probe. The entry site was anest hetized with 1% lidocaine. A 21 gauge 7 cm needle was advanced through the skin and into the basilic vein under live ultrasound guidance. An ultrasound image was saved to PACS confirming access site. A .018 guide wire was then inserted through the needle and into the venous system. The needle was the n removed and an 11 blade scalpel was used to make a 1cm skin incision. A 5 fr peel-away sheath was advanced over the wire and into the venous system. A measurement was then made using the existing wir e with chest x-ray. The wire was then removed and trimmed. The PICC was advanced through the peel-bárbara y sheath and into the venous system. The peel-away sheath was removed and the catheter was adhered to the patients arm with a stat lock. The catheter was then aspirated and flushed and a sterile bandage was placed over the access site. Chest image was saved to PACS confirming the catheter tip within t he superior vena cava. IMPRESSION: SUCCESSFUL PLACEMENT OF A 5 FR DUAL LUMEN 35 CM PICC IN THE RIGHT BASILIC VEIN. COMMENT: Patient medication list reviewed: Yes- Quality ID# [id number]:Eligible professional attests to doc umenting in the medical record they obtained, updated, or reviewed the patient's current medications. . Quality ID 145: Final reports for procedures using fluoroscopy that document radiation exposure nan roxanna, or exposure time and number of fluorographic images (if radiation exposure indices are not avail able) Quality ID #76: The patient was prepped and draped using maximum sterile barrier technique including cap, mask, sterile gown, sterile gloves, a large sterile sheet, hand hygiene, and 2% Chlorhexidine fo r cutaneous antisepsis. When ultrasound is used, sterile ultrasound techniques are followed requiring sterile gel and sterile probes. TECHNICAL DOCUMENTATION: JOB ID: [id number] 2010 [employer]- All Rights Reserved rev-07/09 Reading location - IP/workstation name: [id number]
--- NOTE | 2019-05-01 16:55 | CRITICAL CARE ADMISSION REPORT ---
HPI Date:: 04/24/19 Time:: 09:30 Reason for ICU Reason:: Risk of intubation. HPI: This patient is a 69 yo woman with O2 dependant COPD and steroid dependant chronic bronchitis. She has been here more than a week and is showing signs of further respiratory decompensation needing up to 79% on bipap. She has mostly been on bipap most of the day. She is in danger of intubation and appears to have a possible IF pattern on CXR. She will be seen by Dr. Shea today. History obtained from:: Patient and records. - Diagnosis/Plan (1) COPD (chronic obstructive pulmonary disease) Qualifiers: COPD type: COPD with acute exacerbation Qualified Code(s): J44.1 - Chronic obstructive pulmonary disease with (acute) exacerbation Is this a current diagnosis for this admission?: Yes Plan: We carlos continue steroids, O2, bipap and have Dr. Salcedo see her (2) Acute on chronic diastolic (congestive) heart failure Is this a current diagnosis for this admission?: Yes Plan: She seems euvlolemic but her bun/cr are stable. Will continue lasix today at same dose and cut back in AM. (3) Longstanding persistent atrial fibrillation Is this a current diagnosis for this admission?: Yes Plan: Controlled (4) Acute and chronic respiratory failure with hypoxia Is this a current diagnosis for this admission?: Yes Plan: Continue bipap and intubate if she decompensates more. (5) HTN (hypertension) Qualifiers: Hypertension type: essential hypertension Qualified Code(s): I10 - Essential (primary) hypertension Is this a current diagnosis for this admission?: Yes Plan: Controlled (6) Myelodysplasia (myelodysplastic syndrome) Is this a current diagnosis for this admission?: Yes Plan: CBC is stable. - . Plan Summary: Plan observation in ICU for intubation Past Medical History Cardiac Medical History: Reports: Atrial Fibrillation, Hypertension, Pulmonary Embolism - 30+yrs ago Denies: Congestive Heart Failure, Coronary Artery Disease, Myocardial Infarction, Hyperlipidema, Peripheral Vascular Disease, Heart Murmur Pulmonary Medical History: Reports: Asthma, Bronchitis, Chronic Obstructive Pulmonary Disease (COPD), Pneumonia, Respiratory Failure, Tuberculosis Denies: Sleep Apnea Neurological Medical History: Denies: Seizures Endocrine Medical History: Reports: Hypothyroidism Denies: Diabetes Mellitus Type 1, Diabetes Mellitus Type 2, Hyperthyroidism Renal/ Medical History: Denies: End Stage Renal Disease Malignancy Medical History: Denies: Lung Cancer GI Medical History: Reports: Gastroesophageal Reflux Disease Denies: Cirrhosis, Crohn's Disease, Diverticulitis, Hepatitis, Hiatal Hernia, Ulcerative Colitis Musculoskeltal Medical History: Reports: Arthritis Denies: Fibromyalgia, Gout Skin Medical History: Denies: Eczema, Psoriasis Psychiatric Medical History: Reports: Depression Denies: Bipolar Disorder, Post Traumatic Stress Disorder Hematology: Reports: Anemia - Myelodysplastic syndrome Denies: Sickle Cell Disease, Bleeding Tendencies Infectious Medical History: Denies: Clostridium Difficile, Methicillin-Resistant Staph Aureus Past Surgical History Past Surgical History: Reports: Hysterectomy, Orthopedic Surgery - Carpal tunnel, ganglion cyst, trigger finger, Tubal Ligation Denies: Amputation, Appendectomy, Section, Cholecystectomy, Coronary Artery Bypass Graft, Gastric Bypass Surgery, Herniorrhaphy, Mastectomy, Pacemaker, Tonsillectomy Social/Family History - Social History Lives with: Family Smoking Status: Former Smoker Number of Years Smokin Last Time Smoked: 1 year ago Frequency of Alcohol Use: None Hx Recreational Drug Use: No Drugs: None Hx Prescription Drug Abuse: No - Medication/Allergies Home Medications: Albuterol Sulfate [Proair HFA Inhalation Aerosol 8.5 gm MDI] 2 puff IH Q4HP PRN 10/30/18 Aspirin [Ecotrin 81 mg EC Tablet] 81 mg PO DAILY 10/30/18 Budesonide/Formoterol Fumarate [Symbicort HFA 160-4.5 mcg Inhaler 6 gm] 2 puff IH Q12 10/30/18 Citalopram Hydrobromide [Celexa 40 mg Tablet] 40 mg PO DAILY 10/30/18 Pantoprazole Sodium [Protonix [address] Tablet] 40 mg PO Q6AM 10/30/18 Roflumilast [Daliresp 500 mcg Tablet] 500 mcg PO DAILY 10/30/18 Ropinirole HCl [Requip 2 mg Tablet] 2 mg PO Q8 10/30/18 Cyanocobalamin (Vitamin B-12) [Vitamin B-12 1000 mcg Tablet] 1,000 mcg PO DAILY #30 tablet 11/04/18 Ferrous Sulfate [Albafort] 325 mg PO DAILY #30 tablet 11/04/18 Apixaban [Eliquis 5 mg Tablet] 5 mg PO Q12 04/13/19 Buspirone HCl 5 mg PO Q12 04/13/19 Cetirizine HCl [Zyrtec] 10 mg PO DAILY 04/13/19 Furosemide [Lasix 20 mg Tablet] 80 mg PO BIDP PRN 04/13/19 Levothyroxine Sodium [Synthroid 0.112 mg Tablet] 112 mcg PO Q6AM 04/13/19 Magnesium Oxide [Magnesium] 400 mg PO DAILY 04/13/19 Potassium Chloride 20 meq PO BID 04/13/19 Atorvastatin Calcium [Lipitor 20 mg Tablet] 20 mg PO DAILY 04/14/19 Prednisone [Deltasone 20 mg Tablet] 40 mg PO DAILY 4 Days #8 tablet MDD took one dose 04/21/19 Allergies/Adverse Reactions: hydromorphone HCl [From Dilaudid] Allergy (Severe, Verified 04/13/19 21:13) Passed out Review of Systems Constitutional: PRESENT: fatigue, weakness Eyes: ABSENT: visual disturbances Ears: ABSENT: hearing changes Cardiovascular: ABSENT: chest pain, dyspnea on exertion, edema, orthropnea, palpitations Respiratory: PRESENT: dyspnea Gastrointestinal: ABSENT: abdominal pain, constipation, diarrhea, hematemesis, hematochezia, nausea, vomiting Musculoskeletal: ABSENT: joint swelling Neurological: ABSENT: abnormal gait, abnormal speech, confusion, dizziness, focal weakness, syncope Psychiatric: ABSENT: anxiety, depression, homidical ideation, suicidal ideation Endocrine: ABSENT: cold intolerance, heat intolerance, polydipsia, polyuria Hematologic/Lymphatic: ABSENT: easy bleeding, easy bruising Physical Exam Vital Signs: Temp Pulse Resp BP Pulse Ox 97.5 F 80 25 H 123/73 93 05/01/19 12:00 05/01/19 12:04 05/01/19 12:04 05/01/19 12:00 05/01/19 12:04 Intake & Output 04/30/19 05/01/19 05/02/19 06:59 06:59 06:59 Intake Total 1415 Output Total 1360 50 Balance 55 -50 Weight 99.2 kg 97.3 kg Weight/Height Weight 97.3 kg Height 5 ft 5 in General appearance: PRESENT: cooperative, mild distress Head exam: PRESENT: atraumatic, normocephalic Eye exam: PRESENT: conjunctiva pink, EOMI, PERRLA. ABSENT: scleral icterus Ear exam: PRESENT: normal external ear exam Mouth exam: PRESENT: moist, tongue midline Respiratory exam: PRESENT: clear to auscultation armand, decreased breath sounds. ABSENT: rales, rhonchi, wheezes Cardiovascular exam: PRESENT: RRR. ABSENT: diastolic murmur, rubs, systolic murmur GI/Abdominal exam: PRESENT: normal bowel sounds, soft. ABSENT: distended, guarding, mass, organolmegaly, rebound, tenderness Rectal exam: PRESENT: deferred Extremities exam: PRESENT: full ROM. ABSENT: calf tenderness, clubbing, pedal edema Neurological exam: PRESENT: alert, awake, oriented to person, oriented to place, oriented to time, oriented to situation, CN II-XII grossly intact. ABSENT: motor sensory deficit Psychiatric exam: PRESENT: appropriate affect, normal mood. ABSENT: homicidal ideation, suicidal ideation Laboratory/Radiographs Laboratory Results: 04/29/19 05:39 04/30/19 10:10 05/01/19 13:59 Carbonic Acid 1.90 H HCO3/H2CO3 Ratio 22:1 ABG pH 7.44 ABG pCO2 63.1 H ABG pO2 67.1 L ABG HCO3 41.8 H ABG O2 Saturation 93.3 L ABG Base Excess 15.5 FiO2 80% 04/22/19 04/27/19 23:10 04:20 Troponin I < 0.012 NT-Pro-B Natriuret Pep 1520 H 705 H Impressions: Interventional Vascular Procedure 05/01/19 00:00 IMPRESSION: SUCCESSFUL PLACEMENT OF A 5 FR DUAL LUMEN 35 CM PICC IN THE RIGHT BASILIC VEIN. PICC Line Insertion 05/01/19 00:00 IMPRESSION: SUCCESSFUL PLACEMENT OF A 5 FR DUAL LUMEN 35 CM PICC IN THE RIGHT BASILIC VEIN. Chest X-Ray 05/01/19 09:36 IMPRESSION: Stable chest with diffuse bilateral interstitial and alveolar opacities and small left effusion. Findings may represent multifocal pneumonia or edema. Stable enlarged cardiac silhouette. All labs, radiographs, diagnostic studies and EKGs were personally reviewed: Yes In addition, reports of radiographic and diagnostic studies were read: Yes Critical Time Critical Time (minutes): 40 -: The care of a critically ill patient is dynamic. This note represents a static moment in the admission process. Orders and treatments may be given simultaneously and urgently, and time is not installation service representative of the treatment process. This patient requires Critical Care secondary to life threatening organ or limb dysfunction. Without Critical Care services, the patient is at risk for increased mortality and morbidity.
[2019-05-01] MEDS ORDERED: NORMAL SALINE 10 ML SDV (AFTER EACH USE) IV PRN (17:00)
[2019-05-01] MEDS: ERTAPENEM SODIUM 1 GM in NORMAL SALINE 50 ML IV SCH (17:54)
[2019-05-01] MEDS: FLUTICASONE NASAL SPRAY 50 MCG/SPRY 120 SPRAY/16 GM NASL SCH (17:55)
--- NOTE | 2019-05-01 17:56 | PDOC PROGRESS REPORT ---
Subjective Progress Note for:: 05/01/19 Subjective:: She has required additional levels of oxygen support and her FiO2 was up to 80% on BiPAP and she just looks really fatigued. I asked the ICU attending Dr. Coyle to evaluate her, and after he did so, he recommended that she be moved to the intensive care unit. Reason For Visit: COPD EXACERBATION PNEUMONIA Physical Exam Vital Signs: Temp Pulse Resp BP Pulse Ox 97.5 F 80 24 H 117/72 98 05/01/19 12:00 05/01/19 12:04 05/01/19 17:17 05/01/19 17:17 05/01/19 17:17 Intake & Output 04/30/19 05/01/19 05/02/19 06:59 06:59 06:59 Intake Total 1415 Output Total 1360 400 Balance 55 -400 Weight 99.2 kg 97.3 kg General appearance: PRESENT: cooperative, disheveled, morbidly obese, other - Moderate distress Respiratory exam: PRESENT: crackles - Diffuse, symmetrical. ABSENT: accessory muscle use, prolonged expiratory phas, retraction, rhonchi, tachypnea, unlabored, wheezes Cardiovascular exam: PRESENT: RRR, +S1, +S2 Pulses: PRESENT: normal carotid pulses Vascular exam: PRESENT: normal capillary refill GI/Abdominal exam: PRESENT: normal bowel sounds, soft. ABSENT: distended, guar ding, rebound, tenderness Extremities exam: ABSENT: clubbing, pedal edema Musculoskeletal exam: PRESENT: normal inspection. ABSENT: deformity Neurological exam: PRESENT: alert, awake, oriented to person, oriented to place, oriented to situation Psychiatric exam: PRESENT: appropriate affect, normal mood Skin exam: PRESENT: dry, warm Results Laboratory Results: 04/29/19 05:39 04/30/19 10:10 05/01/19 13:59 Carbonic Acid 1.90 H HCO3/H2CO3 Ratio 22:1 ABG pH 7.44 ABG pCO2 63.1 H ABG pO2 67.1 L ABG HCO3 41.8 H ABG O2 Saturation 93.3 L ABG Base Excess 15.5 FiO2 80% 04/22/19 04/27/19 23:10 04:20 Troponin I < 0.012 NT-Pro-B Natriuret Pep 1520 H 705 H Impressions: Interventional Vascular Procedure 05/01/19 00:00 IMPRESSION: SUCCESSFUL PLACEMENT OF A 5 FR DUAL LUMEN 35 CM PICC IN THE RIGHT BASILIC VEIN. PICC Line Insertion 05/01/19 00:00 IMPRESSION: SUCCESSFUL PLACEMENT OF A 5 FR DUAL LUMEN 35 CM PICC IN THE RIGHT BASILIC VEIN. Chest X-Ray 05/01/19 09:36 IMPRESSION: Stable chest with diffuse bilateral interstitial and alveolar opacities and small left effusion. Findings may represent multifocal pneumonia or edema. Stable enlarged cardiac silhouette. Assessment and Plan - Diagnosis (1) Acute on chronic diastolic (congestive) heart failure Is this a current diagnosis for this admission?: Yes Plan: On Lasix twice daily, good urine output, cardiology consulted (2) COPD (chronic obstructive pulmonary disease) Qualifiers: COPD type: COPD with acute exacerbation Qualified Code(s): J44.1 - Chronic obstructive pulmonary disease with (acute) exacerbation Is this a current diagnosis for this admission?: Yes Plan: On steroids and bronchodilators along with antibiotics (3) Acute and chronic respiratory failure with hypoxia Is this a current diagnosis for this admission?: Yes Plan: Ventilatory support including BiPAP and high flow nasal cannula to maintain SPO2 greater than 90%. Patient has been transferred to the ICU. (4) Respiratory distress Is this a current diagnosis for this admission?: Yes Plan: She has been on steroids, antibiotics, and Lasix for days, and her chest x-ray perhaps looks a little worse, and is definitely not had any improvement. I am concerned that she has developed, or is in the process of developing, ARDS. We are treating her supportively from a ventilatory standpoint, and are treating the possible underlying etiologies until such time she can recover. As previously noted, she has been moved to the ICU. I have also consulted Dr. Shea. - Time Time Spent with patient: 25-34 minutes
[2019-05-01] MEDS: ROFLUMILAST 500 MCG TABLET PO SCH (18:00)
[2019-05-01] MEDS: NORMAL SALINE 10 ML SDV (SCHEDULED) IV SCH (23:16)
[2019-05-02] MEDS ORDERED: FLUTICASONE NASAL SPRAY 50 MCG/SPRY 120 SPRAY/16 GM ONE (00:08)
[2019-05-02] MEDS: IPRATROPIUM/ALBUTEROL 0.5-2.5 MG/3 ML AMPUL NEB SCH ×6 (00:16→20:20)
[2019-05-02] MEDS: FLUTICASONE NASAL SPRAY 50 MCG/SPRY 120 SPRAY/16 GM NASL SCH ×3 (01:28→22:20)
[2019-05-02 05:17] LABS: HEMATOCRIT 24.7 % (36.0-47.0); MEAN CORPUSCULAR HEMOGLOBIN 26.7 pg (27.0-33.4); MEAN CORPUSCULAR HGB CONC 32.5 g/dL (32.0-36.0); MEAN CORPUSCULAR VOLUME 82 fl (80-97); PLATELET COUNT 305 10^3/uL (150-450); RED BLOOD COUNT 3.01 10^6/uL (3.72-5.28); RED CELL DISTRIBUTION WIDTH 19.1 % (11.5-14.0)
[2019-05-02] MEDS: DOXYCYCLINE HYCLATE 100 MG in DEXTROSE 5%-WATER 250 ML IV SCH ×2 (05:32→17:02)
[2019-05-02 05:36] LABS: ALBUMIN 2.9 g/dL (3.5-5.0); ALKALINE PHOSPHATASE 136 U/L (38-126); ASPARTATE AMINO TRANSFERASE 33 U/L (14-36); BILIRUBIN,DIRECT 0.2 mg/dL (0.0-0.4); BILIRUBIN,TOTAL 0.8 mg/dL (0.2-1.3); BLOOD UREA NITROGEN 54 mg/dL (7-20); CALCIUM 7.6 mg/dL (8.4-10.2); CARBON DIOXIDE 39 mmol/L (22-30); CHLORIDE 93 mmol/L (98-107); GLUCOSE 177 mg/dL (75-110); POTASSIUM 5.1 mmol/L (3.6-5.0); TOTAL PROTEIN 5.6 g/dL (6.3-8.2)
[2019-05-02] MEDS: LEVOTHYROXINE SODIUM 0.112 MG TABLET PO SCH (05:37)
[2019-05-02] MEDS: ROPINIROLE HCL 2 MG TABLET PO SCH ×3 (05:37→22:20)
[2019-05-02] MEDS: PANTOPRAZOLE SODIUM 40 MG TABLET.DR PO SCH (05:37)
[2019-05-02 05:54] LABS: ANION GAP 4 (5-19)
[2019-05-02 06:14] LABS: ABSOLUTE LYMPHOCYTES# (MANUAL) 0.7 10^3/uL (0.5-4.7); ABSOLUTE MONOCYTES # (MANUAL) 1.7 10^3/uL (0.1-1.4); BASOPHILS % (MANUAL) 0 % (0-2); EOSINOPHILS % (MANUAL) 0 % (0-6); LYMPHOCYTES % (MANUAL) 3 % (13-45); MONOCYTES % (MANUAL) 7 % (3-13); SEGMENTED NEUTROPHILS % (MAN) 90 % (42-78); TOTAL CELLS COUNTED 100
[2019-05-02 06:17] LABS: ANISOCYTOSIS 2+; OVALOCYTES SLIGHT; PLATELET COMMENT ADEQUATE; POIKILOCYTOSIS 1+; POLYCHROMASIA SLIGHT
[2019-05-02] MEDS: BUDESONIDE NEB 0.5 MG/2 ML AMPUL NEB SCH ×2 (07:56→20:20)
--- NOTE | 2019-05-02 08:17 | PDOC PROGRESS REPORT ---
Subjective Progress Note for:: 05/02/19 Subjective:: LEVI GIBBONS is a 69 year old female with prior history of longstanding persistent atrial fibrillation status post AV alessandro ablation, history of single- chamber pacemaker for sick sinus syndrome, advanced COPD on home oxygen, chronic heart failure with preserved ejection fraction, obesity, hypertension, hyperlipidemia who was consulted to our service and initially evaluated by Dr. Ansari for further evaluation and treatment of heart failure. The patient had a prolonged hospitalization at [facility] from 01/11/19-02/27/19 and underwent AVN ablation somewhere during that admission. I am taking over her cardiology care since today. 05/02/2019: Unfortunately, the patient's pulmonary status continued to deteriorate and was transferred to the ICU yesterday where she remains on BiPap. The patient has no cardiac complaints today. She specifically denied chest pain, shortness of breath, palpitations. Studies: Echocardiogram May 2018: Normal left ventricular systolic function, no significant valve disease Reason For Visit: COPD EXACERBATION PNEUMONIA Physical Exam Vital Signs: Temp Pulse Resp BP Pulse Ox 98.8 F 81 21 H 129/80 H 92 05/02/19 06:00 05/02/19 04:04 05/02/19 06:00 05/02/19 05:17 05/02/19 06:00 Intake & Output 04/30/19 05/01/19 05/02/19 06:59 06:59 06:59 Intake Total 1415 500 Output Total 1360 1490 Balance 55 -990 Weight 99.2 kg 93.6 kg General appearance: PRESENT: no acute distress, disheveled, well-developed, well-nourished Head exam: PRESENT: atraumatic, normocephalic Neck exam: ABSENT: carotid bruit, JVD, lymphadenopathy, thyromegaly Respiratory exam: PRESENT: prolonged expiratory phas, wheezes Cardiovascular exam: PRESENT: RRR. ABSENT: diastolic murmur, rubs, systolic murmur Pulses: PRESENT: normal dorsalis pedis pul Results Laboratory Results: 05/02/19 04:55 05/02/19 04:55 05/01/19 05/02/19 05/02/19 13:59 04:55 04:55 WBC 24.0 H RBC 3.01 L Hgb 8.0 L Hct 24.7 L MCV 82 MCH 26.7 L MCHC 32.5 RDW 19.1 H Plt Count 305 Seg Neutrophils % Not Reportable Carbonic Acid 1.90 H HCO3/H2CO3 Ratio 22:1 ABG pH 7.44 ABG pCO2 63.1 H ABG pO2 67.1 L ABG HCO3 41.8 H ABG O2 Saturation 93.3 L ABG Base Excess 15.5 FiO2 80% Sodium 136.2 L Potassium 5.1 H Chloride 93 L Carbon Dioxide 39 H Anion Gap 4 L BUN 54 H Creatinine 1.29 H Est GFR ( Amer) 49 L Glucose 177 H Calcium 7.6 L Magnesium 2.4 H Total Bilirubin 0.8 AST 33 Alkaline Phosphatase 136 H Total Protein 5.6 L Albumin 2.9 L 04/22/19 04/27/19 23:10 04:20 Troponin I < 0.012 NT-Pro-B Natriuret Pep 1520 H 705 H Impressions: Interventional Vascular Procedure 05/01/19 00:00 IMPRESSION: SUCCESSFUL PLACEMENT OF A 5 FR DUAL LUMEN 35 CM PICC IN THE RIGHT BASILIC VEIN. PICC Line Insertion 05/01/19 00:00 IMPRESSION: SUCCESSFUL PLACEMENT OF A 5 FR DUAL LUMEN 35 CM PICC IN THE RIGHT BASILIC VEIN. Assessment & Plan - Diagnosis (1) Heart failure Qualifiers: Heart failure type: diastolic Heart failure chronicity: unspecified Qualified Code(s): I50.30 - Unspecified diastolic (congestive) heart failure Is this a current diagnosis for this admission?: Yes Plan: Patient now in the ICU secondary to her respiratory status. The patient is currently on IV Lasix 60 mg twice daily with her creatinine now up to 1.3 which represents a steady increase since admission. She is euvolemic at this point therefore her diuresis can be scaled back. Recommendations: -Decrease lasix to 40mg po daily if patient not NPO, otherwise recommend lasix 20mg IV daily. -Continue to track electrolytes closely. -Low-sodium diet. -Strict intake and output. -We will continue to follow-up with you. (2) COPD (chronic obstructive pulmonary disease) Qualifiers: COPD type: COPD with acute exacerbation Qualified Code(s): J44.1 - Chronic obstructive pulmonary disease with (acute) exacerbation Is this a current diagnosis for this admission?: Yes Plan: The patient is now in the ICU. Further management per the ICU team. (3) Longstanding persistent atrial fibrillation Is this a current diagnosis for this admission?: Yes Plan: She has a history of sick sinus syndrome status post pacemaker implantation. On telemetry she continues to be ventricularly paced. She is anticoagulated with Eliquis. She remains essentially asymptomatic. Recommendations: -Continue with current medical management. -Continue with anticoagulation.
--- NOTE | 2019-05-02 09:55 | RADIOLOGY REPORT (SQ) ---
EXAM DESCRIPTION: CHEST SINGLE VIEW COMPLETED DATE/TIME: 05/02/2019 6:38 am REASON FOR STUDY: resp failure COMPARISON: Chest films 04/13/2019, 04/26/2019, 04/29/2019, 05/01/2019 EXAM PARAMETERS: NUMBER OF VIEWS: One view. TECHNIQUE: Single frontal radiographic view of the chest acquired. RADIATION DOSE: NA LIMITATIONS: None. FINDINGS: LUNGS AND PLEURA: Diffuse alveolar and interstitial infiltrates, edema versus pneumonia it has ARDS. Infiltrates have progressed since 04/26/2019. No pleural effusion. No pneumothorax MEDIASTINUM AND HILAR STRUCTURES: No masses. Contour normal. HEART AND VASCULAR STRUCTURES: Stable moderate cardiomegaly. BONES: No acute findings. HARDWARE: Left-sided single lead pacemaker. Right PICC line tip superior vena cava. OTHER: No other significant finding. IMPRESSION: No change in diffuse alveolar and interstitial infiltrates compared to 05/01/2019. Right PICC line tip superior vena cava. TECHNICAL DOCUMENTATION: JOB ID: [id number] 2010 [employer]- All Rights Reserved Reading location - IP/workstation name: [email or web address]
[2019-05-02] MEDS: ERTAPENEM SODIUM 1 GM in NORMAL SALINE 50 ML IV SCH (10:38)
[2019-05-02] MEDS: BUSPIRONE HCL 10 MG TABLET PO SCH ×2 (10:39→22:20)
[2019-05-02] MEDS: FERROUS SULFATE 325 MG TABLET PO SCH (10:39)
[2019-05-02] MEDS: ROFLUMILAST 500 MCG TABLET PO SCH (10:39)
[2019-05-02] MEDS: APIXABAN 5 MG TABLET PO SCH ×2 (10:39→19:13)
[2019-05-02] MEDS: ASPIRIN 81 MG TABLET, ENT COATED PO SCH (10:39)
[2019-05-02] MEDS: CITALOPRAM HYDROBROMIDE 20 MG TABLET PO SCH (10:39)
[2019-05-02] MEDS: ATORVASTATIN CALCIUM 20 MG TABLET PO SCH (10:39)
[2019-05-02] MEDS: METHYLPREDNISOLONE INJ 40 MG/1 ML SDV IV SCH ×2 (10:39→22:21)
[2019-05-02] MEDS: CETIRIZINE 10 MG TABLET PO SCH (10:41)
[2019-05-02] MEDS: GUAIFENESIN 600 MG TABLET.SA PO SCH ×2 (10:41→22:20)
[2019-05-02] MEDS: POTASSIUM CHLORIDE 10 MEQ TABLET.ER PO SCH (10:41)
[2019-05-02] MEDS: CYANOCOBALAMIN (VITAMIN B-12) 1,000 MCG TABLET PO SCH (10:42)
[2019-05-02] MEDS: FUROSEMIDE INJ/PF 100 MG/10 ML SDV IV SCH (10:42)
[2019-05-02] MEDS: NORMAL SALINE 10 ML SDV (SCHEDULED) IV SCH ×2 (10:43→22:22)
[2019-05-02] MEDS ORDERED: ONDANSETRON HCL INJ/PF 4 MG/2 ML SDV IV PRN (11:17)
--- NOTE | 2019-05-02 11:29 | PDOC CRITICAL CARE PROG REPORT ---
General Date:: 05/02/19 ICU Day:: 2 Hospital Day:: 9 Resuscitation Status: Full Code Events in the past 12 to 24 Hours:: Oxygenation only slightly better. Review of systems relevant to events:: Respiratory. Reason for ICU Addmission:: Risk of intubation. - Medications: Medications reviewed and adjusted accordingly: Yes Vasopressors:: None Sedation:: None Physical Exam Vital Signs: Temp Pulse Resp BP Pulse Ox 99.0 F 80 29 H 127/70 H 94 05/02/19 10:17 05/02/19 10:33 05/02/19 10:33 05/02/19 10:33 05/02/19 10:33 Intake & Output 05/01/19 05/02/19 05/03/19 06:59 06:59 06:59 Intake Total 1415 500 300 Output Total 1360 1490 135 Balance 55 -990 165 Weight 99.2 kg 93.6 kg Weight/Height Weight 93.6 kg Height 5 ft 5 in General appearance: PRESENT: cooperative, mild distress Head exam: PRESENT: atraumatic, normocephalic Eye exam: PRESENT: conjunctiva pink, EOMI, PERRLA. ABSENT: scleral icterus Ear exam: PRESENT: normal external ear exam Mouth exam: PRESENT: moist, tongue midline Respiratory exam: PRESENT: decreased breath sounds, rhonchi Cardiovascular exam: PRESENT: RRR. ABSENT: diastolic murmur, rubs, systolic murmur GI/Abdominal exam: PRESENT: normal bowel sounds, soft. ABSENT: distended, guarding, mass, organolmegaly, rebound, tenderness Rectal exam: PRESENT: deferred Gentrourinary exam: PRESENT: indwelling catheter Extremities exam: PRESENT: full ROM, +1 edema. ABSENT: calf tenderness, clubbing, pedal edema Musculoskeletal exam: PRESENT: normal inspection Neurological exam: PRESENT: alert, awake, oriented to person, oriented to place, oriented to time, oriented to situation, CN II-XII grossly intact. ABSENT: motor sensory deficit Psychiatric exam: PRESENT: appropriate affect, normal mood. ABSENT: homicidal ideation, suicidal ideation Skin exam: PRESENT: dry, intact, warm. ABSENT: cyanosis, rash Laboratory/Radiographs Laboratory Results: 05/02/19 04:55 05/02/19 04:55 05/01/19 05/02/19 05/02/19 13:59 04:55 04:55 WBC 24.0 H RBC 3.01 L Hgb 8.0 L Hct 24.7 L MCV 82 MCH 26.7 L MCHC 32.5 RDW 19.1 H Plt Count 305 Seg Neutrophils % Not Reportable Carbonic Acid 1.90 H HCO3/H2CO3 Ratio 22:1 ABG pH 7.44 ABG pCO2 63.1 H ABG pO2 67.1 L ABG HCO3 41.8 H ABG O2 Saturation 93.3 L ABG Base Excess 15.5 FiO2 80% Sodium 136.2 L Potassium 5.1 H Chloride 93 L Carbon Dioxide 39 H Anion Gap 4 L BUN 54 H Creatinine 1.29 H Est GFR ( Amer) 49 L Glucose 177 H Calcium 7.6 L Magnesium 2.4 H Total Bilirubin 0.8 AST 33 Alkaline Phosphatase 136 H Total Protein 5.6 L Albumin 2.9 L 04/22/19 04/27/19 23:10 04:20 Troponin I < 0.012 NT-Pro-B Natriuret Pep 1520 H 705 H Impressions: Interventional Vascular Procedure 05/01/19 00:00 IMPRESSION: SUCCESSFUL PLACEMENT OF A 5 FR DUAL LUMEN 35 CM PICC IN THE RIGHT BASILIC VEIN. PICC Line Insertion 05/01/19 00:00 IMPRESSION: SUCCESSFUL PLACEMENT OF A 5 FR DUAL LUMEN 35 CM PICC IN THE RIGHT BASILIC VEIN. Chest X-Ray 05/02/19 06:00 IMPRESSION: No change in diffuse alveolar and interstitial infiltrates compared to 05/01/2019. Right PICC line tip superior vena cava. EKG: Paced All labs, radiographs, diagnostic studies and EKGs were personally reviewed: Yes In addition, reports of radiographic and diagnostic studies were read: Yes Assessment and Plan - Diagnosis (1) COPD (chronic obstructive pulmonary disease) Qualifiers: COPD type: COPD with acute exacerbation Qualified Code(s): J44.1 - Chronic obstructive pulmonary disease with (acute) exacerbation Is this a current diagnosis for this admission?: Yes Plan: Slightly improved from FiO2 80 to 65%. Tolerated being off bipap for 1 hour. (2) Acute on chronic diastolic (congestive) heart failure Is this a current diagnosis for this admission?: Yes Plan: Now euvolemic. Will cut back on lasix per Dr. Cerrato' recommendations. (3) Longstanding persistent atrial fibrillation Is this a current diagnosis for this admission?: Yes Plan: Paced (4) Acute and chronic respiratory failure with hypoxia Is this a current diagnosis for this admission?: Yes Plan: Continue with bipap and wean O2 slowly. (5) HTN (hypertension) Qualifiers: Hypertension type: essential hypertension Qualified Code(s): I10 - Essenti al (primary) hypertension Is this a current diagnosis for this admission?: Yes Plan: Controlled. (6) Myelodysplasia (myelodysplastic syndrome) Is this a current diagnosis for this admission?: Yes Plan: Somewhat anemic. (7) Leukocytosis Is this a current diagnosis for this admission?: Yes Plan: Level up to 24K is concerning, no signs of infection and steroids cut down. Recheck in AM. Plan Summary: Wean O2 as tolerated, cut back on lasix. May downgrade in AM. Critical Time Critical Time (minutes): 35 Level of Care: ICU Anticipated discharge: SNF Within: Other - One week. -: 1. The care of a critical patient is a dynamic process. This note is a technical sales representatives synopsis but static in nature. The timeframe for treatments given in order is not necessarily the actual time these treatments may have been done. 2. This patient requires critical care secondary to ongoing requirements for therapy not offered or safe outside the critical care environment. Transfer to a lower level of care will result in altered life or limb morbidity and mortality. 3. Multidisciplinary rounds completed. 4. ABCDE bundle addressed.
[2019-05-02] MEDS: ACETAMINOPHEN 325 MG TABLET PO PRN (17:01)
[2019-05-03] MEDS: MELATONIN 3 MG TABLET PO PRN ×2 (00:23→21:33)
[2019-05-03] MEDS: IPRATROPIUM/ALBUTEROL 0.5-2.5 MG/3 ML AMPUL NEB SCH ×6 (00:32→20:44)
[2019-05-03] MEDS: ROPINIROLE HCL 2 MG TABLET PO SCH ×3 (05:11→21:26)
[2019-05-03] MEDS: PANTOPRAZOLE SODIUM 40 MG TABLET.DR PO SCH (05:11)
[2019-05-03] MEDS: LEVOTHYROXINE SODIUM 0.112 MG TABLET PO SCH (05:11)
[2019-05-03] MEDS: DOXYCYCLINE HYCLATE 100 MG in DEXTROSE 5%-WATER 250 ML IV SCH ×2 (05:12→17:06)
[2019-05-03 05:35] LABS: HEMATOCRIT 24.9 % (36.0-47.0); MEAN CORPUSCULAR HEMOGLOBIN 26.5 pg (27.0-33.4); MEAN CORPUSCULAR HGB CONC 32.1 g/dL (32.0-36.0); MEAN CORPUSCULAR VOLUME 82 fl (80-97); PLATELET COUNT 319 10^3/uL (150-450); RED BLOOD COUNT 3.02 10^6/uL (3.72-5.28); RED CELL DISTRIBUTION WIDTH 18.8 % (11.5-14.0); WHITE BLOOD COUNT 26.1 10^3/uL (4.0-10.5)
[2019-05-03 05:54] LABS: BLOOD UREA NITROGEN 57 mg/dL (7-20); CALCIUM 7.4 mg/dL (8.4-10.2); GLUCOSE 199 mg/dL (75-110); POTASSIUM 4.7 mmol/L (3.6-5.0)
[2019-05-03 06:00] LABS: CHLORIDE 92 mmol/L (98-107)
[2019-05-03 06:07] LABS: ABSOLUTE MONOCYTES # (MANUAL) 0.5 10^3/uL (0.1-1.4); BAND NEUTROPHILS % (MANUAL) 1 % (3-5); BASOPHILS % (MANUAL) 0 % (0-2); EOSINOPHILS % (MANUAL) 0 % (0-6); LYMPHOCYTES % (MANUAL) 4 % (13-45); MONOCYTES % (MANUAL) 2 % (3-13); SEGMENTED NEUTROPHILS % (MAN) 93 % (42-78); TOTAL CELLS COUNTED 100
[2019-05-03 06:08] LABS: ANISOCYTOSIS 1+; HYPOCHROMASIA SLIGHT; PLATELET COMMENT ADEQUATE; POLYCHROMASIA SLIGHT
[2019-05-03 06:16] LABS: ANION GAP 8 (5-19)
[2019-05-03 06:21] LABS: CARBON DIOXIDE 37 mmol/L (22-30)
--- NOTE | 2019-05-03 07:49 | PDOC PROGRESS REPORT ---
Subjective Progress Note for:: 05/03/19 Subjective:: LEVI GIBBONS is a 69 year old female with prior history of longstanding persistent atrial fibrillation status post AV alessandro ablation, history of single- chamber pacemaker for sick sinus syndrome, advanced COPD on home oxygen, chronic heart failure with preserved ejection fraction, obesity, hypertension, hyperlipidemia who was consulted to our service and initially evaluated by Dr. Ansari for further evaluation and treatment of heart failure. The patient had a prolonged hospitalization at [facility] from 01/11/19-02/27/19 and underwent AVN ablation somewhere during that admission. I am taking over her cardiology care since today. 05/03/2019: The patient had an uneventful night and is resting comfortably in bed. She is actually doing much better since yesterday and she is not on BiPAP anymore but on a rebreather mask. She is slightly tachypneic however denies chest pain, palpitations but endorses slight shortness of breath. Her chest x-ray, which I reviewed personally this morning, looks slightly better than the prior radiograph. Studies: Echocardiogram May 2018: Normal left ventricular systolic function, no significant valve disease Reason For Visit: COPD EXACERBATION PNEUMONIA Physical Exam Vital Signs: Temp Pulse Resp BP Pulse Ox 97.9 F 80 23 H 106/60 87 L 05/03/19 06:18 05/03/19 04:40 05/03/19 06:18 05/03/19 06:18 05/03/19 06:18 Intake & Output 05/02/19 05/03/19 05/04/19 06:59 06:59 06:59 Intake Total 500 700 Output Total 1490 1775 Balance -990 -1075 Weight 93.6 kg 94.3 kg General appearance: PRESENT: no acute distress, well-developed, well-nourished Head exam: PRESENT: atraumatic, normocephalic Eye exam: PRESENT: conjunctiva pink, EOMI, PERRLA. ABSENT: scleral icterus Mouth exam: PRESENT: moist, tongue midline Neck exam: ABSENT: carotid bruit, JVD, lymphadenopathy, thyromegaly Respiratory exam: PRESENT: tachypnea, unlabored, wheezes Cardiovascular exam: PRESENT: RRR. ABSENT: bradycardia, diastolic murmur, rubs, systolic murmur Extremities exam: PRESENT: full ROM. ABSENT: calf tenderness, clubbing, pedal edema Results Laboratory Results: 05/03/19 05:25 05/03/19 05:25 05/03/19 05/03/19 05:25 05:25 WBC 26.1 H RBC 3.02 L Hgb 8.0 L Hct 24.9 L MCV 82 MCH 26.5 L MCHC 32.1 RDW 18.8 H Plt Count 319 Seg Neutrophils % Not Reportable Sodium 137.0 Potassium 4.7 Chloride 92 L Carbon Dioxide 37 H Anion Gap 8 BUN 57 H Creatinine 1.30 H Est GFR ( Amer) 49 L Glucose 199 H Calcium 7.4 L 04/22/19 04/27/19 23:10 04:20 Troponin I < 0.012 NT-Pro-B Natriuret Pep 1520 H 705 H Impressions: Interventional Vascular Procedure 05/01/19 00:00 IMPRESSION: SUCCESSFUL PLACEMENT OF A 5 FR DUAL LUMEN 35 CM PICC IN THE RIGHT BASILIC VEIN. PICC Line Insertion 05/01/19 00:00 IMPRESSION: SUCCESSFUL PLACEMENT OF A 5 FR DUAL LUMEN 35 CM PICC IN THE RIGHT BASILIC VEIN. Assessment & Plan - Diagnosis (1) Heart failure Qualifiers: Heart failure type: diastolic Heart failure chronicity: unspecified Qualified Code(s): I50.30 - Unspecified diastolic (congestive) heart failure Is this a current diagnosis for this admission?: Yes Plan: She is improving slowly and continues to be euvolemic. Her renal function is stable. Her telemetry shows V paced rhythm without any significant dysrhythmias. At this point there is no class I indication for inpatient cardiology follow-up therefore we will sign off the case for now and will contact Dr. Eran Mckenna, the patient's outpatient direct support staff member, to arrange for follow-up. Recommendations: -Decrease lasix to 20mg po daily. -Continue to track electrolytes closely. -Low-sodium diet. -Strict intake and output. -We will sign off the case, please call [phone] with questions or concerns. (2) COPD (chronic obstructive pulmonary disease) Qualifiers: COPD type: COPD with acute exacerbation Qualified Code(s): J44.1 - Chronic obstructive pulmonary disease with (acute) exacerbation Is this a current diagnosis for this admission?: Yes Plan: The patient continues to be in ICU and slightly improved. Further management per the ICU team. (3) Longstanding persistent atrial fibrillation Is this a current diagnosis for this admission?: Yes Plan: She has a history of sick sinus syndrome status post pacemaker implantation. On telemetry she continues to be ventricularly paced. She is anticoagulated with Eliquis. She remains essentially asymptomatic. Recommendations: -Continue with current medical management. -Continue with anticoagulation. -We will sign off the case for now. Please call [phone] with questions or concerns.
--- NOTE | 2019-05-03 08:33 | RADIOLOGY REPORT (SQ) ---
EXAM DESCRIPTION: CHEST SINGLE VIEW COMPLETED DATE/TIME: 05/03/2019 5:36 am REASON FOR STUDY: Respiratory Failure COMPARISON: 05/02/2019 NUMBER OF VIEWS: One view. TECHNIQUE: Single frontal radiographic image of the chest acquired. LIMITATIONS: None. FINDINGS: LUNGS AND PLEURA: Stable appearance. MEDIASTINUM AND HILAR STRUCTURES: Stable heart size and mediastinal structures. HEART AND VASCULAR STRUCTURES: Stable appearance. BONES: No acute findings. HARDWARE: None in the chest. OTHER: No other significant finding. IMPRESSION: STABLE APPEARANCE OF THE CHEST. TECHNICAL DOCUMENTATION: JOB ID: [id number] 2010 [employer]- All Rights Reserved Reading location - IP/workstation name: [email or web address]
[2019-05-03] MEDS: BUDESONIDE NEB 0.5 MG/2 ML AMPUL NEB SCH ×2 (09:25→20:43)
[2019-05-03] MEDS ORDERED: FUROSEMIDE 40 MG TABLET PO SCH ×2 (10:00)
[2019-05-03] MEDS: CITALOPRAM HYDROBROMIDE 20 MG TABLET PO SCH (10:22)
[2019-05-03] MEDS: ATORVASTATIN CALCIUM 20 MG TABLET PO SCH (10:22)
[2019-05-03] MEDS: GUAIFENESIN 600 MG TABLET.SA PO SCH ×2 (10:22→21:26)
[2019-05-03] MEDS: ROFLUMILAST 500 MCG TABLET PO SCH (10:23)
[2019-05-03] MEDS: APIXABAN 5 MG TABLET PO SCH ×2 (10:23→17:06)
[2019-05-03] MEDS: ASPIRIN 81 MG TABLET, ENT COATED PO SCH (10:23)
[2019-05-03] MEDS: BUSPIRONE HCL 10 MG TABLET PO SCH ×2 (10:23→21:26)
[2019-05-03] MEDS: CETIRIZINE 10 MG TABLET PO SCH (10:23)
[2019-05-03] MEDS: FERROUS SULFATE 325 MG TABLET PO SCH (10:23)
[2019-05-03] MEDS: CYANOCOBALAMIN (VITAMIN B-12) 1,000 MCG TABLET PO SCH (10:23)
[2019-05-03] MEDS: PREDNISONE 20 MG TABLET PO SCH (10:23)
[2019-05-03] MEDS: FLUTICASONE NASAL SPRAY 50 MCG/SPRY 120 SPRAY/16 GM NASL SCH ×3 (10:24→21:26)
[2019-05-03] MEDS: ERTAPENEM SODIUM 1 GM in NORMAL SALINE 50 ML IV SCH (10:26)
[2019-05-03] MEDS: METOPROLOL SUCCINATE 50 MG TAB.SR.24H PO SCH ×3 (10:26→21:28)
[2019-05-03] MEDS: NORMAL SALINE 10 ML SDV (SCHEDULED) IV SCH ×2 (10:28→21:29)
--- NOTE | 2019-05-03 10:45 | PDOC CRITICAL CARE PROG REPORT ---
General Date:: 05/03/19 ICU Day:: 2 Hospital Day:: 9 Resuscitation Status: Full Code Events in the past 12 to 24 Hours:: Clinically improved but very depressed with 's recent . Review of systems relevant to events:: Pulmonary, psychiatric. Reason for ICU Addmission:: Risk of intubation. Now improved. - Medications: Medications reviewed and adjusted accordingly: Yes Vasopressors:: None Sedation:: None Physical Exam Vital Signs: Temp Pulse Resp BP Pulse Ox 97.7 F 82 23 H 121/75 96 05/03/19 10:00 05/03/19 10:00 05/03/19 10:00 05/03/19 09:18 05/03/19 09:26 Intake & Output 05/02/19 05/03/19 05/04/19 06:59 06:59 06:59 Intake Total 500 700 Output Total 1490 1775 100 Balance -990 -1075 -100 Weight 93.6 kg 94.3 kg Weight/Height Weight 94.3 kg Height 5 ft 5 in General appearance: PRESENT: no acute distress, well-developed, well-nourished Head exam: PRESENT: atraumatic, normocephalic Eye exam: PRESENT: conjunctiva pink, EOMI, PERRLA. ABSENT: scleral icterus Ear exam: PRESENT: normal external ear exam Mouth exam: PRESENT: moist, tongue midline Respiratory exam: PRESENT: clear to auscultation armand, decreased breath sounds. ABSENT: rales, rhonchi, wheezes Cardiovascular exam: PRESENT: RRR. ABSENT: diastolic murmur, rubs, systolic murmur GI/Abdominal exam: PRESENT: normal bowel sounds, soft. ABSENT: distended, guarding, mass, organolmegaly, rebound, tenderness Rectal exam: PRESENT: deferred Gentrourinary exam: PRESENT: indwelling catheter Extremities exam: PRESENT: full ROM. ABSENT: calf tenderness, clubbing, pedal edema Musculoskeletal exam: PRESENT: normal inspection Neurological exam: PRESENT: alert, awake, oriented to person, oriented to place, oriented to time, oriented to situation, CN II-XII grossly intact. ABSENT: motor sensory deficit Psychiatric exam: PRESENT: depressed, flat affect Skin exam: PRESENT: dry, intact, warm. ABSENT: cyanosis, rash Laboratory/Radiographs Laboratory Results: 05/03/19 05:25 05/03/19 05:25 05/03/19 05/03/19 05:25 05:25 WBC 26.1 H RBC 3.02 L Hgb 8.0 L Hct 24.9 L MCV 82 MCH 26.5 L MCHC 32.1 RDW 18.8 H Plt Count 319 Seg Neutrophils % Not Reportable Sodium 137.0 Potassium 4.7 Chloride 92 L Carbon Dioxide 37 H Anion Gap 8 BUN 57 H Creatinine 1.30 H Est GFR ( Amer) 49 L Glucose 199 H Calcium 7.4 L 04/22/19 04/27/19 23:10 04:20 Troponin I < 0.012 NT-Pro-B Natriuret Pep 1520 H 705 H Impressions: Interventional Vascular Procedure 05/01/19 00:00 IMPRESSION: SUCCESSFUL PLACEMENT OF A 5 FR DUAL LUMEN 35 CM PICC IN THE RIGHT BASILIC VEIN. PICC Line Insertion 05/01/19 00:00 IMPRESSION: SUCCESSFUL PLACEMENT OF A 5 FR DUAL LUMEN 35 CM PICC IN THE RIGHT BASILIC VEIN. Chest X-Ray 05/03/19 06:00 IMPRESSION: STABLE APPEARANCE OF THE CHEST. All labs, radiographs, diagnostic studies and EKGs were personally reviewed: Yes In addition, reports of radiographic and diagnostic studies were read: Yes Assessment and Plan - Diagnosis (1) COPD (chronic obstructive pulmonary disease) Qualifiers: COPD type: COPD with acute exacerbation Qualified Code(s): J44.1 - Chronic obstructive pulmonary disease with (acute) exacerbation Is this a current diagnosis for this admission?: Yes Plan: CXR improved. Not wheezing. Now on prednisone. (2) Acute on chronic diastolic (congestive) heart failure Is this a current diagnosis for this admission?: Yes Plan: Resolved. On lasix 20mg. PO now. (3) Longstanding persistent atrial fibrillation Is this a current diagnosis for this admission?: Yes Plan: Rate controlled. (4) Acute and chronic respiratory failure with hypoxia Is this a current diagnosis for this admission?: Yes Plan: She is on non-rebreather and holding her saturations. (5) HTN (hypertension) Qualifiers: Hypertension type: essential hypertension Qualified Code(s): I10 - Essential (primary) hypertension Is this a current diagnosis for this admission?: Yes Plan: Controlled. (6) Myelodysplasia (myelodysplastic syndrome) Is this a current diagnosis for this admission?: Yes Plan: Stable (7) Leukocytosis Qualifiers: Leukocytosis type: unspecified Qualified Code(s): D72.829 - Elevated white blood cell count, unspecified Is this a current diagnosis for this admission?: Yes Plan: Slightly higher but there is no obvious infection. Repeat in AM. If peripheral access can be obtained, D/C PICC> Plan Summary: Mobilize as much as possible with PT. Downgrade to [facility], continue celexa. Pt prefer to think about code status and will confide in family instead of psychiatry or counselor. Critical Time Critical Time (minutes): 30 Level of Care: IMCU Anticipated discharge: SNF Within: Other -: 1. The care of a critical patient is a dynamic process. This note is a logistics service representative synopsis but static in nature. The timeframe for treatments giv en in order is not necessarily the actual time these treatments may have been done. 2. This patient requires critical care secondary to ongoing requirements for therapy not offered or safe outside the critical care environment. Transfer to a lower level of care will result in altered life or limb morbidity and mortality. 3. Multidisciplinary rounds completed. 4. ABCDE bundle addressed.
[2019-05-04] MEDS: IPRATROPIUM/ALBUTEROL 0.5-2.5 MG/3 ML AMPUL NEB SCH ×7 (00:07→23:50)
[2019-05-04] MEDS ORDERED: LORAZEPAM INJ 2 MG/1 ML VIAL ONE (02:27)
[2019-05-04] MEDS ORDERED: LORAZEPAM INJ 2 MG/1 ML VIAL IV ONE (02:45)
[2019-05-04] MEDS: DOXYCYCLINE HYCLATE 100 MG in DEXTROSE 5%-WATER 250 ML IV SCH (05:36)
[2019-05-04 06:11] LABS: HEMATOCRIT 22.9 % (36.0-47.0); MEAN CORPUSCULAR HEMOGLOBIN 26.3 pg (27.0-33.4); MEAN CORPUSCULAR HGB CONC 31.1 g/dL (32.0-36.0); MEAN CORPUSCULAR VOLUME 84 fl (80-97); PLATELET COUNT 308 10^3/uL (150-450); RED BLOOD COUNT 2.72 10^6/uL (3.72-5.28); RED CELL DISTRIBUTION WIDTH 19.8 % (11.5-14.0); WHITE BLOOD COUNT 24.3 10^3/uL (4.0-10.5)
[2019-05-04] MEDS ORDERED: ALBUTEROL SULFATE 0.083% NEB 2.5 MG/3 ML AMPUL NEB PRN (06:11)
[2019-05-04 06:28] LABS: BLOOD UREA NITROGEN 53 mg/dL (7-20); GLUCOSE 295 mg/dL (75-110); POTASSIUM 3.9 mmol/L (3.6-5.0)
[2019-05-04 06:34] LABS: CARBON DIOXIDE 37 mmol/L (22-30); CHLORIDE 92 mmol/L (98-107)
[2019-05-04] MEDS: PANTOPRAZOLE SODIUM 40 MG TABLET.DR PO SCH ×2 (06:34→06:52)
[2019-05-04] MEDS: ROPINIROLE HCL 2 MG TABLET PO SCH ×3 (06:34→22:00)
[2019-05-04] MEDS: LEVOTHYROXINE SODIUM 0.112 MG TABLET PO SCH (06:34)
[2019-05-04 06:38] LABS: ANION GAP 3 (5-19)
[2019-05-04 06:39] LABS: CALCIUM 6.8 mg/dL (8.4-10.2)
[2019-05-04 06:51] LABS: ABSOLUTE MONOCYTES # (MANUAL) 0.5 10^3/uL (0.1-1.4); BASOPHILS % (MANUAL) 0 % (0-2); EOSINOPHILS % (MANUAL) 0 % (0-6); LYMPHOCYTES % (MANUAL) 4 % (13-45); MONOCYTES % (MANUAL) 2 % (3-13); NUCLEATED RED BLOOD CELLS 1 /100 WBC (0); SEGMENTED NEUTROPHILS % (MAN) 94 % (42-78); TOTAL CELLS COUNTED 100
[2019-05-04 06:53] LABS: HYPOCHROMASIA SLIGHT; POIKILOCYTOSIS SLIGHT; POLYCHROMASIA SLIGHT; TOXIC GRANULATION SLIGHT; TOXIC VACUOLATION PRESENT
[2019-05-04 06:54] LABS: OVALOCYTES SLIGHT; PLATELET COMMENT ADEQUATE; TEAR DROP CELLS SLIGHT
[2019-05-04 06:55] LABS: HEMOGLOBIN 7.1 g/dL (12.0-15.5)
[2019-05-04] MEDS ORDERED: NORMAL SALINE 250 ML IV PRN ×2 (07:42)
[2019-05-04] MEDS ORDERED: FUROSEMIDE INJ/PF 40 MG/4 ML SDV IV PRN (07:42)
[2019-05-04] MEDS: BUDESONIDE NEB 0.5 MG/2 ML AMPUL NEB SCH ×2 (08:31→20:08)
[2019-05-04] MEDS: ERTAPENEM SODIUM 1 GM in NORMAL SALINE 50 ML IV SCH (10:49)
[2019-05-04] MEDS: PREDNISONE 20 MG TABLET PO SCH (10:52)
[2019-05-04] MEDS: GUAIFENESIN 600 MG TABLET.SA PO SCH ×2 (10:52→22:01)
[2019-05-04] MEDS: FUROSEMIDE 20 MG TABLET PO SCH (10:52)
[2019-05-04] MEDS: CITALOPRAM HYDROBROMIDE 20 MG TABLET PO SCH (10:52)
[2019-05-04] MEDS: BUSPIRONE HCL 10 MG TABLET PO SCH ×2 (10:52→22:00)
[2019-05-04] MEDS: METOPROLOL SUCCINATE 50 MG TAB.SR.24H PO SCH ×2 (10:52→22:03)
[2019-05-04] MEDS: ATORVASTATIN CALCIUM 20 MG TABLET PO SCH (10:52)
[2019-05-04] MEDS: APIXABAN 5 MG TABLET PO SCH ×2 (10:52→17:44)
[2019-05-04] MEDS: CETIRIZINE 10 MG TABLET PO SCH (10:52)
[2019-05-04] MEDS: FERROUS SULFATE 325 MG TABLET PO SCH (10:53)
[2019-05-04] MEDS: NORMAL SALINE 10 ML SDV (SCHEDULED) IV SCH ×2 (10:53→22:01)
[2019-05-04] MEDS: ASPIRIN 81 MG TABLET, ENT COATED PO SCH (10:53)
[2019-05-04] MEDS: CYANOCOBALAMIN (VITAMIN B-12) 1,000 MCG TABLET PO SCH (10:53)
[2019-05-04] MEDS: ROFLUMILAST 500 MCG TABLET PO SCH (11:01)
[2019-05-04] MEDS: FLUTICASONE NASAL SPRAY 50 MCG/SPRY 120 SPRAY/16 GM NASL SCH ×2 (11:01→22:01)
--- NOTE | 2019-05-04 13:01 | PDOC CRITICAL CARE PROG REPORT ---
General Date:: 05/04/19 ICU Day:: 3 Hospital Day:: 12 Resuscitation Status: Full Code Events in the past 12 to 24 Hours:: Hgb down but no bleeding. Respiratory status unchanged. Review of systems relevant to events:: Respiratory, hematopoeitic Reason for ICU Addmission:: Risk of intubation. Now improved. - Medications: Medications reviewed and adjusted accordingly: Yes Vasopressors:: None Sedation:: None Physical Exam Vital Signs: Temp Pulse Resp BP Pulse Ox 97.8 F 80 31 H 112/64 90 L 05/04/19 11:24 05/04/19 11:24 05/04/19 11:24 05/04/19 11:24 05/04/19 11:24 Intake & Output 05/03/19 05/04/19 05/05/19 06:59 06:59 06:59 Intake Total 700 1022 0 Output Total 1775 1050 Balance -1075 -28 0 Weight 94.3 kg 95 kg Weight/Height Weight 95 kg Height 5 ft 5 in General appearance: PRESENT: no acute distress, cooperative Head exam: PRESENT: atraumatic, normocephalic Eye exam: PRESENT: conjunctiva pink, EOMI, PERRLA. ABSENT: scleral icterus Ear exam: PRESENT: normal external ear exam Mouth exam: PRESENT: moist, tongue midline Respiratory exam: PRESENT: decreased breath sounds, rhonchi, tachypnea, unlabored Cardiovascular exam: PRESENT: RRR. ABSENT: diastolic murmur, rubs, systolic murmur GI/Abdominal exam: PRESENT: normal bowel sounds, soft. ABSENT: distended, guard ing, mass, organolmegaly, rebound, tenderness Extremities exam: PRESENT: full ROM. ABSENT: calf tenderness, clubbing, pedal edema Neurological exam: PRESENT: alert, awake, oriented to person, oriented to place, oriented to time, oriented to situation, CN II-XII grossly intact. ABSENT: motor sensory deficit Psychiatric exam: PRESENT: appropriate affect, normal mood. ABSENT: homicidal ideation, suicidal ideation Skin exam: PRESENT: dry, intact, warm. ABSENT: cyanosis, rash Laboratory/Radiographs Laboratory Results: 05/04/19 05:44 05/04/19 05:44 05/04/19 05/04/19 05/04/19 05:44 05:44 08:00 WBC 24.3 H RBC 2.72 L Hgb 7.1 L Hct 22.9 L MCV 84 MCH 26.3 L MCHC 31.1 L RDW 19.8 H Plt Count 308 Seg Neutrophils % Not Reportable Sodium 131.8 L Potassium 3.9 Chloride 92 L Carbon Dioxide 37 H Anion Gap 3 L BUN 53 H Creatinine 1.05 Est GFR ( Amer) > 60 Glucose 295 H Calcium 6.8 L* Blood Type O POSITIVE Antibody Screen NEGATIVE 04/22/19 04/27/19 23:10 04:20 Troponin I < 0.012 NT-Pro-B Natriuret Pep 1520 H 705 H Impressions: Interventional Vascular Procedure 05/01/19 00:00 IMPRESSION: SUCCESSFUL PLACEMENT OF A 5 FR DUAL LUMEN 35 CM PICC IN THE RIGHT BASILIC VEIN. PICC Line Insertion 05/01/19 00:00 IMPRESSION: SUCCESSFUL PLACEMENT OF A 5 FR DUAL LUMEN 35 CM PICC IN THE RIGHT BASILIC VEIN. Chest X-Ray 05/03/19 06:00 IMPRESSION: STABLE APPEARANCE OF THE CHEST. All labs, radiographs, diagnostic studies and EKGs were personally reviewed: Yes In addition, reports of radiographic and diagnostic studies were read: Yes Assessment and Plan - Diagnosis (1) COPD (chronic obstructive pulmonary disease) Qualifiers: COPD type: COPD with acute exacerbation Qualified Code(s): J44.1 - Chronic obstructive pulmonary disease with (acute) exacerbation Is this a current diagnosis for this admission?: Yes Plan: No wheezing but still having respiratory difficulty. Needing bipap still to maintain O2 saturations about 90%. (2) Acute on chronic diastolic (congestive) heart failure Is this a current diagnosis for this admission?: Yes Plan: Resolved (3) Longstanding persistent atrial fibrillation Is this a current diagnosis for this admission?: Yes Plan: Paced (4) Acute and chronic respiratory failure with hypoxia Is this a current diagnosis for this admission?: Yes Plan: This is the main and persistant problem keeping her in the ICU. (5) HTN (hypertension) Qualifiers: Hypertension type: essential hypertension Qualified Code(s): I10 - Essential (primary) hypertension Is this a current diagnosis for this admission?: Yes Plan: Controlled. (6) Myelodysplasia (myelodysplastic syndrome) Is this a current diagnosis for this admission?: Yes Plan: Likely the main reason for Hgb drop. No evidence of bleeding. Hgb 7.1 but will transfuse to maintain O2 carrying capacity. (7) Leukocytosis Qualifiers: Leukocytosis type: unspecified Qualified Code(s): D72.829 - Elevated white blood cell count, unspecified Is this a current diagnosis for this admission?: Yes Plan: Only slightly improved. Plan Summary: Transfuse 1 unit of PRBCs. Maintain bipap. Lasix 40mg to be given. Critical Time Critical Time (minutes): 35 Level of Care: IMCU Anticipated discharge: SNF Within: Other -: 1. The care of a critical patient is a dynamic process. This note is a territory sales representative synopsis but static in nature. The timeframe for treatments given in order is not necessarily the actual time these treatments may have been done. 2. This patient requires critical care secondary to ongoing requirements for therapy not offered or safe outside the critical care environment. Transfer to a lower level of care will result in altered life or limb morbidity and mortality. 3. Multidisciplinary rounds completed. 4. ABCDE bundle addressed.
[2019-05-04] MEDS ORDERED: CALCIUM GLUCONATE 1000 MG/10 ML INJ IV ONE (16:22)
[2019-05-04 17:16] LABS: HEMATOCRIT 29.3 % (36.0-47.0); MEAN CORPUSCULAR HEMOGLOBIN 26.8 pg (27.0-33.4); MEAN CORPUSCULAR VOLUME 84 fl (80-97); PLATELET COUNT 333 10^3/uL (150-450); RED CELL DISTRIBUTION WIDTH 18.4 % (11.5-14.0); WHITE BLOOD COUNT 27.6 10^3/uL (4.0-10.5)
[2019-05-04] MEDS: CALCIUM GLUCONATE 1 GM/NS 50 ML RTU IV SCH ×2 (17:44→18:49)
[2019-05-04 18:00] LABS: HEMOGLOBIN 9.4 g/dL (12.0-15.5)
[2019-05-05] MEDS: IPRATROPIUM/ALBUTEROL 0.5-2.5 MG/3 ML AMPUL NEB SCH ×4 (04:08→20:03)
[2019-05-05] MEDS: PANTOPRAZOLE SODIUM 40 MG TABLET.DR PO SCH (06:00)
[2019-05-05] MEDS: LEVOTHYROXINE SODIUM 0.112 MG TABLET PO SCH (06:14)
[2019-05-05 06:42] LABS: BLOOD UREA NITROGEN 52 mg/dL (7-20); CALCIUM 7.9 mg/dL (8.4-10.2); CHLORIDE 96 mmol/L (98-107); GLUCOSE 82 mg/dL (75-110); POTASSIUM 4.1 mmol/L (3.6-5.0)
[2019-05-05 06:48] LABS: CARBON DIOXIDE 39 mmol/L (22-30)
--- NOTE | 2019-05-05 06:48 | RADIOLOGY REPORT (SQ) ---
Chest one view on 05/05/2019 at 5:49 AM CLINICAL INDICATION: Shortness of breath COMPARISON: 05/03/2019 FINDINGS: There are developing small bilateral pleural effusions. Single-lead left subclavian pacemaker tip is in the right ventricle. Cardiomegaly is noted. There are worsening right-sided opacities consistent with worsening pneumonia and/or asymmetric edema. Other bilateral interstitial opacities may be chronic in nature versus edema. Right-sided PICC line tip is in the SVC. IMPRESSION: 1. Worsening bilateral pleural effusions. 2. Worsening right-sided opacity consistent with pneumonia and/or asymmetric edema.
[2019-05-05 06:50] LABS: ANION GAP 4 (5-19)
[2019-05-05 07:01] LABS: HEMATOCRIT 29.2 % (36.0-47.0); HEMOGLOBIN 9.3 g/dL (12.0-15.5); MEAN CORPUSCULAR HEMOGLOBIN 26.7 pg (27.0-33.4); MEAN CORPUSCULAR HGB CONC 31.9 g/dL (32.0-36.0); MEAN CORPUSCULAR VOLUME 84 fl (80-97); PLATELET COUNT 337 10^3/uL (150-450); RED BLOOD COUNT 3.49 10^6/uL (3.72-5.28); RED CELL DISTRIBUTION WIDTH 18.7 % (11.5-14.0); WHITE BLOOD COUNT 25.8 10^3/uL (4.0-10.5)
[2019-05-05 07:57] LABS: ABSOLUTE MONOCYTES # (MANUAL) 1.3 10^3/uL (0.1-1.4); BASOPHILS % (MANUAL) 0 % (0-2); EOSINOPHILS % (MANUAL) 0 % (0-6); LYMPHOCYTES % (MANUAL) 4 % (13-45); MONOCYTES % (MANUAL) 5 % (3-13); SEGMENTED NEUTROPHILS % (MAN) 91 % (42-78); TOTAL CELLS COUNTED 100
[2019-05-05 07:59] LABS: ANISOCYTOSIS 1+; OVALOCYTES SLIGHT; PLATELET COMMENT ADEQUATE; POLYCHROMASIA SLIGHT; TEAR DROP CELLS SLIGHT
[2019-05-05] MEDS: BUDESONIDE NEB 0.5 MG/2 ML AMPUL NEB SCH (08:50)
[2019-05-05] MEDS: GUAIFENESIN 600 MG TABLET.SA PO SCH (09:57)
[2019-05-05] MEDS: BUSPIRONE HCL 10 MG TABLET PO SCH (09:57)
[2019-05-05] MEDS: APIXABAN 5 MG TABLET PO SCH (09:58)
[2019-05-05] MEDS: CYANOCOBALAMIN (VITAMIN B-12) 1,000 MCG TABLET PO SCH (09:58)
[2019-05-05] MEDS: FUROSEMIDE 20 MG TABLET PO SCH (09:58)
[2019-05-05] MEDS: CITALOPRAM HYDROBROMIDE 20 MG TABLET PO SCH (09:58)
[2019-05-05] MEDS: PREDNISONE 20 MG TABLET PO SCH (09:58)
[2019-05-05] MEDS: FERROUS SULFATE 325 MG TABLET PO SCH (09:58)
[2019-05-05] MEDS: CETIRIZINE 10 MG TABLET PO SCH (09:59)
[2019-05-05] MEDS: ATORVASTATIN CALCIUM 20 MG TABLET PO SCH (09:59)
[2019-05-05] MEDS: NORMAL SALINE 10 ML SDV (SCHEDULED) IV SCH ×2 (10:00→21:00)
[2019-05-05] MEDS: ASPIRIN 81 MG TABLET, ENT COATED PO SCH (10:01)
[2019-05-05] MEDS: FLUTICASONE NASAL SPRAY 50 MCG/SPRY 120 SPRAY/16 GM NASL SCH (10:01)
[2019-05-05] MEDS: ROFLUMILAST 500 MCG TABLET PO SCH (10:02)
[2019-05-05] MEDS: ROPINIROLE HCL 2 MG TABLET PO SCH (10:04)
[2019-05-05] MEDS ORDERED: ROCURONIUM BROMIDE INJ 50 MG/5 ML VIAL IV ONE ×2 (10:36→13:33)
[2019-05-05] MEDS ORDERED: METHYLPREDNISOLONE INJ 40 MG/1 ML SDV IV SCH (11:00)
[2019-05-05] MEDS ORDERED: OSELTAMIVIR PHOSPHATE 75 MG CAPSULE PO SCH (11:15)
[2019-05-05 11:42] LABS: A TYPE INFLUENZA AG NEGATIVE (NEGATIVE); B INFLUENZA AG NEGATIVE (NEGATIVE)
[2019-05-05 11:45] LABS: ARTERIAL BLOOD BASE EXCESS 6.3 mmol/L; ARTERIAL BLOOD H2CO3 1.38 mmol/L (1.05-1.35); ARTERIAL BLOOD HCO3 31.1 mmol/L (20-24); ARTERIAL BLOOD O2 SATURATION 87.9 % (94-98); ARTERIAL BLOOD PCO2 45.9 mmHg (35-45); ARTERIAL BLOOD PH 7.45 (7.35-7.45); ARTERIAL BLOOD PO2 51.8 mmHg (80-100); ARTERIAL BLOOD TOTAL CO2 32.5 mmol/L (21-25)
[2019-05-05 11:48] LABS: ARTERIAL BLOOD FIO2 95% BY NASAL CANNULA
[2019-05-05] MEDS: FUROSEMIDE INJ/PF 20 MG/2 ML SDV IV SCH ×2 (12:22→21:00)
--- NOTE | 2019-05-05 13:28 | PDOC CRITICAL CARE PROG REPORT ---
General Date:: 05/05/19 ICU Day:: 4 Hospital Day:: 13 Resuscitation Status: Full Code Medical Power of Branch Employment Coordinator: Sons Events in the past 12 to 24 Hours:: 05.05.2019: Patient had been downgraded to IMCU status but has had increasing oxygen requirements. Today she is on high flow at 60 L with FiO2 approaching 90%. She endorses dyspnea and does not complain that it is any worse than yesterday. There is been no evidence of bleeding. Review of systems relevant to events:: 05.05.2019: Patient had been downgraded to IMCU status but has had increasing oxygen requirements. Today she is on high flow at 60 L with FiO2 approaching 90%. She endorses dyspnea and does not complain that it is any worse than yesterday. There is been no evidence of bleeding. Reason for ICU Addmission:: Hypoxic respiratory failure - Medications: Medications reviewed and adjusted accordingly: Yes Vasopressors:: None Sedation:: None Physical Exam Vital Signs: Temp Pulse Resp BP Pulse Ox 96.7 F L 81 28 H 119/72 94 05/05/19 08:00 05/05/19 08:00 05/05/19 08:00 05/05/19 08:00 05/05/19 08:00 Intake & Output 05/04/19 05/05/19 05/06/19 06:59 06:59 06:59 Intake Total 1022 520 200 Output Total 1050 1100 Balance -28 -580 200 Weight 95 kg 92.6 kg Weight/Height Weight 92.6 kg Height 5 ft 5 in General appearance: PRESENT: mild distress, morbidly obese Exam: Elderly, ill-appearing but nontoxic 69-year-old female awake alert oriented x4 including situation. Mild respiratory distress Head exam: PRESENT: atraumatic, normocephalic Eye exam: PRESENT: conjunctival injection, EOMI, PERRLA. ABSENT: nystagmus, scleral icterus Ear exam: ABSENT: bleeding, drainage Mouth exam: PRESENT: dry mucosa, neck supple Teeth exam: PRESENT: edentulous Neck exam: ABSENT: carotid bruit, JVD, lymphadenopathy, meningismus, thyromegaly, tracheal deviation Respiratory exam: PRESENT: accessory muscle use - Mild, crackles, tachypnea, wheezes Cardiovascular exam: PRESENT: RRR, +S1, +S2. ABSENT: systolic murmur GI/Abdominal exam: PRESENT: diminished bowel sounds. ABSENT: ascites, organolmegaly, rebound, rigid, tenderness Rectal exam: PRESENT: deferred Gentrourinary exam: PRESENT: indwelling catheter Extremities exam: PRESENT: +1 edema. ABSENT: tenderness Neurological exam: PRESENT: alert, awake, oriented to person, oriented to place, oriented to time, oriented to situation, CN II-XII grossly intact. ABSENT: motor sensory deficit Psychiatric exam: PRESENT: appropriate affect, normal mood Focused psych exam: ABSENT: pressured speech, psychomotor agitation, restlessness Skin exam: PRESENT: dry, intact. ABSENT: cyanosis, jaundice Tubes/Lines: PRESENT: Other - [place] and Bipap--changed to High-flow Laboratory/Radiographs Laboratory Results: 05/05/19 06:04 05/05/19 06:04 05/04/19 05/05/19 05/05/19 16:50 06:04 06:04 WBC 27.6 H RBC 3.50 L Hgb 9.4 L D Hct 29.3 L MCV 84 MCH 26.8 L MCHC 32.0 RDW 18.4 H Plt Count 333 Seg Neutrophils % Sodium 138.5 Potassium 4.1 Chloride 96 L Carbon Dioxide 39 H Anion Gap 4 L BUN 52 H Creatinine 0.97 Est GFR ( Amer) > 60 Glucose 82 Calcium 7.9 L Ionized Calcium Reid 1.08 L 05/05/19 06:04 WBC 25.8 H RBC 3.49 L Hgb 9.3 L Hct 29.2 L MCV 84 MCH 26.7 L MCHC 31.9 L RDW 18.7 H Plt Count 337 Seg Neutrophils % Not Reportable Sodium Potassium Chloride Carbon Dioxide Anion Gap BUN Creatinine Est GFR ( Amer) Glucose Calcium Ionized Calcium Reid 04/22/19 04/27/19 23:10 04:20 Troponin I < 0.012 NT-Pro-B Natriuret Pep 1520 H 705 H Impressions: Interventional Vascular Procedure 05/01/19 00:00 IMPRESSION: SUCCESSFUL PLACEMENT OF A 5 FR DUAL LUMEN 35 CM PICC IN THE RIGHT BASILIC VEIN. PICC Line Insertion 05/01/19 00:00 IMPRESSION: SUCCESSFUL PLACEMENT OF A 5 FR DUAL LUMEN 35 CM PICC IN THE RIGHT BASILIC VEIN. Chest X-Ray 05/05/19 00:00 IMPRESSION: 1. Worsening bilateral pleural effusions. 2. Worsening right-sided opacity consistent with pneumonia and/or asymmetric edema. All labs, radiographs, diagnostic studies and EKGs were personally reviewed: Yes In addition, reports of radiographic and diagnostic studies were read: Yes Assessment and Plan - Diagnosis (1) ARDS (adult respiratory distress syndrome) Is this a current diagnosis for this admission?: Yes (2) Acute respiratory failure with hypoxia and hypercapnia Is this a current diagnosis for this admission?: Yes Plan: Please see plans below (3) Anemia, blood loss Is this a current diagnosis for this admission?: Yes (4) COPD exacerbation Is this a current diagnosis for this admission?: Yes (5) Dependence on supplemental oxygen Is this a current diagnosis for this admission?: Yes (6) Leucocytosis Qualifiers: Leukocytosis type: unspecified Qualified Code(s): D72.829 - Elevated white blood cell count, unspecified Is this a current diagnosis for this admission?: Yes (7) Myelodysplasia (myelodysplastic syndrome) Is this a current diagnosis for this admission?: Yes Plan: Likely the main reason for Hgb drop. No evidence of bleeding. Hgb 7.1 but will transfuse to maintain O2 carrying capacity. (8) Anticoagulated Is this a current diagnosis for this admission?: Yes (9) Chronic atrial fibrillation Is this a current diagnosis for this admission?: Yes Plan Summary: 05.05.2019: Patient's respiratory status has worsened. She is requiring higher oxygen concentration and flow. Her chest x-ray shows an evolving interstitial pattern which was not present on admission. This type of presentation can be seen in influenza and other viral related pneumonitis however, given the current state of SARS2 CoViD-19 and its known bi-modal and incubation period make this a very distinct clinical presentation and it is possible and conceivable that this patient may have this. To that end, I have instituted precautionary measures including re-testing for influenza and have spoken to the [facility] who have given permi ssion to check for the above. Also discussed with our infectious disease department. We have preemptively shut the patient's room off and will be transferring her to a negative airflow room while she has a mask. Her respiratory status is such that she is going to require intubation and we will limit HCP's exposure. Instructed all staff to use PPE and 95 mask given the need for intubation as well as eye protective gear. We will check a nasopharyngeal swab for a routine viral panel and for SARS to COViD-19. Currently it is not recommended to perform bronchoscopy. I have increased the patient's steroids but will discontinue them until this unique virus has been ruled out. Clinically steroids have been shown to worsen outcomes and potentially contribute to mortality. I have placed her on Tamiflu until influenza PCR has returned. I did discuss with her family and updated them on her respiratory status and they informed me that various family members have had influenza a and B. In addition, a family member traveled to [place]. There is been no other known travel related connections. Patient's chest x-ray and oxygen requirements are consistent with early ARDS. We will broaden out antibiotic until we can obtain viral information. Regarding her respiratory status she will be placed on mechanical ventilation with obvious protection provided. Follow routine ARDS treatment guidelines. Critical Time Critical Time (minutes): 90 Level of Care: ICU -: 1. The care of a critical patient is a dynamic process. This note is a hospital insurance representative synopsis but static in nature. The timeframe for treatments given in order is not necessarily the actual time these treatments may have been done. 2. This patient requires critical care secondary to ongoing requirements for therapy not offered or safe outside the critical care environment. Transfer to a lower level of care will result in altered life or limb morbidity and mortality. 3. Multidisciplinary rounds completed. 4. ABCDE bundle addressed. [facility] notified
[2019-05-05] MEDS ORDERED: VANCOMYCIN HCL 0 MG in DEXTROSE 5%-WATER 250 ML IV NR (13:30)
[2019-05-05] MEDS ORDERED: FENTANYL CITRATE INJ/PF 100 MCG/2 ML AMPUL IV ONE (13:33)
[2019-05-05] MEDS ORDERED: PROPOFOL 1,000 MG/100 ML INFUS..BTL IV PRN (13:33)
[2019-05-05] MEDS ORDERED: ETOMIDATE INJ/PF 20 MG/10 ML SDV IV ONE (13:33)
[2019-05-05] MEDS ORDERED: PHARMACY COMMUNICATION ORDER MC NR (13:45)
[2019-05-05] MEDS ORDERED: MELATONIN 3 MG TABLET NG PRN (14:00)
--- NOTE | 2019-05-05 15:50 | Operative Report ---
Bedside Procedure - History of Present Illness History of Present Illness: This patient is a 69 yo woman with O2 dependant COPD and steroid dependant chronic bronchitis. She has been here more than a week and is showing signs of further respiratory decompensation needing up to 79% on bipap. She has mostly been on bipap most of the day. Respiratory status is worsening and she has worsening interstitial changes on CXR. She requires mechanical ventilation with concern for atypical pneumonitis and or viral pneumonia. Concern for SARS- 2/Covid 19 Indication for Procedure: Hypoxic respiratory failure. Need for hemodynamic monitoring and blood work Date: 05/05/19 Provider: VIDYA GOOD - Additional Procedures Arterial Line Time performed: 15:00 Notes: Patient's right wrist prepped and draped in sterile fashion and allowed to dry. Sterile gloves full and 95 facemask and fluid impermeable gown the right radial artery was cannulated with a catheter needle in situ. Unfortunately, although blood was seen in the catheter hub it was unable to be advanced. At this point a Seldinger needle was then introduced and pulsatile blood flow was noted. A wire was placed without difficulty. After the wire was placed the cannula, 20-gauge was placed over wire using typical Seldinger technique. After the cannula was placed the wire was removed and a pulsatile blood was noted and was purposely allowed to clear debris. The catheter was then sutured in place and affixed to transducer pressure tubing. Small hematoma had developed but was not significant. Patient had been intubated and paralyzed with sedation prior to the procedure but did not appear to suffer from any complications. Preprocedure diagnosis: Hypoxia with respiratory failure Post procedure diagnosis: Same Proceduralist: Shalini Blood loss: 5 to 10 cc Complications none except for small hematoma Procedure excludes critical care time
--- NOTE | 2019-05-05 15:57 | Operative Report ---
Bedside Procedure - History of Present Illness History of Present Illness: This patient is a 69 yo woman with O2 dependant COPD and steroid dependant chronic bronchitis. She has been here more than a week and is showing signs of further respiratory decompensation needing up to 79% on bipap. She has mostly been on bipap most of the day. Respiratory status is worsening and she has worsening interstitial changes on CXR. She requires mechanical ventilation with concern for atypical pneumonitis and or viral pneumonia. Concern for SARS- 2/Covid 19 Procedure: urgent intubation Preprocedure diagnosis: Hypoxic respiratory failure Procedure diagnosis: Same Proceduralist: Shalini Complications: None EBL: None Anesthesia: Rapid sequence intubation with 100 mcg of fentanyl: 25 mg etomidate: And 100 mg of rocuronium Adjunctive equipment: [place] scope used Patient was appropriate identified secondary ongoing critical care chart check name juanita. Discussion of been carried out with the patient prior to the procedure and the family. Because the patient has an atypical evolving pneumonia care was maintained in a negative airflow room with mask and face protective gear as well as fluid impermeable gowns and gloves. The patient was preoxygenated with high flow and in no bag mask valve ventilation so as to not aerosolized droplets. Under sufficient sedation and anesthetic patient was intubated with a size 4 glide scope without difficulty. This was a grade 1 view through an edentulous mouth. Patient tolerated procedure well, there was no hypoxia, nor was there any hypotension. Postprocedure chest x-ray shows the tip 2 to 3 cm above the fredy. This chest x-ray shows an evolving interstitial pattern. Procedure excludes critical care time Indication for Procedure: Hypoxia with worsening respiratory failure Date: 05/05/19 Provider: VIDYA GOOD
[2019-05-05] MEDS ORDERED: IPRATROPIUM/ALBUTEROL 0.5-2.5 MG/3 ML AMPUL NEB PRN (15:59)
--- NOTE | 2019-05-05 16:06 | RADIOLOGY REPORT (SQ) ---
EXAM DESCRIPTION: CHEST SINGLE VIEW COMPLETED DATE/TIME: 05/05/2019 3:55 pm REASON FOR STUDY: ETT CONFIRMATION COMPARISON: 05/05/2019 EXAM PARAMETERS: NUMBER OF VIEWS: One view. TECHNIQUE: Single frontal radiographic view of the chest acquired. RADIATION DOSE: NA LIMITATIONS: None. FINDINGS: LUNGS AND PLEURA: Stable multifocal interstitial and alveolar opacities, right greater patel n left. Stable mild bilateral pleural effusions. No pneumothorax. MEDIASTINUM AND HILAR STRUCTURES: Stable. HEART AND VASCULAR STRUCTURES: Enlarged, stable. BONES: No acute findings. HARDWARE: Endotracheal tube tip overlies midthoracic trachea. Enteric tube tip below diaphragm but e xcluded by collimation. Left-sided cardiac pacer with leads overlying right ventricle. Stable right approach PICC tip at SVC. OTHER: No other significant finding. IMPRESSION: Intubation with endotracheal tube tip overlying midthoracic trachea. Stable multifocal airspace disease, right greater than left, and mild bilateral effusions. TECHNICAL DOCUMENTATION: JOB ID: [id number] 2010 [employer]- All Rights Reserved Reading location - IP/workstation name: [email or web address]
--- NOTE | 2019-05-05 16:07 | RADIOLOGY REPORT (SQ) ---
EXAM DESCRIPTION: KUB/ABDOMEN (SINGLE VIEW) COMPLETED DATE/TIME: 05/05/2019 3:55 pm REASON FOR STUDY: OGT CONFIRMATION COMPARISON: None. NUMBER OF VIEWS: One view. TECHNIQUE: Supine radiographic image of the abdomen acquired. LIMITATIONS: None. FINDINGS: BOWEL GAS PATTERN: Normal bowel gas pattern. No dilated loops. CALCIFICATIONS: No suspicious calcifications. SOFT TISSUES: No gross mass or suggestion of organomegaly. HARDWARE: Enteric tube tip overlies proximal stomach. BONES: No acute findings. Serpiginous thoracolumbar curvature with multilevel spondylosis. OTHER: Bilateral airspace disease and mild effusions, stable. IMPRESSION: Enteric tube tip overlies proximal stomach. TECHNICAL DOCUMENTATION: JOB ID: [id number] 2010 [employer]- All Rights Reserved Reading location - IP/workstation name: [email or web address]
[2019-05-05] MEDS ORDERED: APIXABAN 5 MG TABLET NG SCH (18:00)
[2019-05-05] MEDS: ROPINIROLE HCL 2 MG TABLET NG SCH ×2 (18:38→21:02)
[2019-05-05] MEDS: CEFEPIME 1 GM/D5W RTU 1 GM/50 ML RTUPB IV SCH ×2 (18:38→21:01)
[2019-05-05] MEDS: OSELTAMIVIR PHOSPHATE 75 MG CAPSULE NG SCH (18:45)
[2019-05-05] MEDS: VANCOMYCIN HCL 750 MG in DEXTROSE 5%-WATER 250 ML IV SCH (18:46)
[2019-05-05] MEDS: PROPOFOL 1,000 MG/100 ML INFUS..BTL IV PRN (20:00)
[2019-05-05 20:14] LABS: ARTERIAL BLOOD BASE EXCESS 5.4 mmol/L; ARTERIAL BLOOD H2CO3 1.75 mmol/L (1.05-1.35); ARTERIAL BLOOD O2 SATURATION 98.9 % (94-98); ARTERIAL BLOOD PCO2 58.2 mmHg (35-45); ARTERIAL BLOOD PH 7.36 (7.35-7.45); ARTERIAL BLOOD PO2 157.3 mmHg (80-100); ARTERIAL BLOOD TOTAL CO2 33.8 mmol/L (21-25)
[2019-05-05 20:15] LABS: ARTERIAL BLOOD FIO2 100%
[2019-05-05] MEDS: MINERAL OIL/PETROLATUM,WHITE OPH OINT 3.5 GM OU SCH (21:08)
[2019-05-05] MEDS: BUSPIRONE HCL 10 MG TABLET NG SCH (21:08)
[2019-05-06] MEDS: PROPOFOL 1,000 MG/100 ML INFUS..BTL IV PRN ×6 (00:07→22:02)
[2019-05-06] MEDS: ROPINIROLE HCL 2 MG TABLET NG SCH ×3 (06:07→22:06)
[2019-05-06] MEDS: PANTOPRAZOLE SODIUM 40 MG PACKET.DR NG SCH (06:07)
[2019-05-06] MEDS: VANCOMYCIN HCL 750 MG in DEXTROSE 5%-WATER 250 ML IV SCH ×2 (06:08→17:34)
[2019-05-06] MEDS: MINERAL OIL/PETROLATUM,WHITE OPH OINT 3.5 GM OU SCH ×3 (06:08→22:06)
[2019-05-06] MEDS: LEVOTHYROXINE SODIUM 0.112 MG TABLET NG SCH (06:08)
[2019-05-06 06:39] LABS: ARTERIAL BLOOD BASE EXCESS 6.2 mmol/L; ARTERIAL BLOOD FIO2 60%; ARTERIAL BLOOD HCO3 31.6 mmol/L (20-24); ARTERIAL BLOOD PCO2 49.8 mmHg (35-45); ARTERIAL BLOOD PH 7.42 (7.35-7.45); ARTERIAL BLOOD PO2 81.2 mmHg (80-100); ARTERIAL BLOOD TOTAL CO2 33.1 mmol/L (21-25)
[2019-05-06 06:47] LABS: HEMOGLOBIN 9.3 g/dL (12.0-15.5); MEAN CORPUSCULAR HEMOGLOBIN 26.7 pg (27.0-33.4); MEAN CORPUSCULAR HGB CONC 31.9 g/dL (32.0-36.0); MEAN CORPUSCULAR VOLUME 84 fl (80-97); PLATELET COUNT 354 10^3/uL (150-450); RED BLOOD COUNT 3.47 10^6/uL (3.72-5.28); RED CELL DISTRIBUTION WIDTH 17.9 % (11.5-14.0); WHITE BLOOD COUNT 21.9 10^3/uL (4.0-10.5)
[2019-05-06 06:58] LABS: ANION GAP 7 (5-19); BLOOD UREA NITROGEN 59 mg/dL (7-20); CALCIUM 7.5 mg/dL (8.4-10.2); CARBON DIOXIDE 33 mmol/L (22-30); CHLORIDE 98 mmol/L (98-107); GLUCOSE 128 mg/dL (75-110)
[2019-05-06] MEDS: IPRATROPIUM/ALBUTEROL 0.5-2.5 MG/3 ML AMPUL NEB SCH ×4 (08:51→20:54)
[2019-05-06] MEDS: ATORVASTATIN CALCIUM 20 MG TABLET NG SCH (09:53)
[2019-05-06] MEDS: BUSPIRONE HCL 10 MG TABLET NG SCH ×2 (09:53→22:06)
[2019-05-06] MEDS: ASPIRIN 81 MG TABLET, CHEWABLE NG SCH (09:53)
[2019-05-06] MEDS: CITALOPRAM HYDROBROMIDE 20 MG TABLET NG SCH (09:53)
[2019-05-06] MEDS: FUROSEMIDE INJ/PF 20 MG/2 ML SDV IV SCH (09:53)
[2019-05-06] MEDS: CYANOCOBALAMIN (VITAMIN B-12) 1,000 MCG TABLET NG SCH (09:53)
[2019-05-06] MEDS: ROFLUMILAST 500 MCG TABLET NG SCH (09:54)
[2019-05-06] MEDS: OSELTAMIVIR PHOSPHATE 75 MG CAPSULE NG SCH ×2 (09:54→17:34)
[2019-05-06] MEDS: CEFEPIME 1 GM/D5W RTU 1 GM/50 ML RTUPB IV SCH ×2 (09:55→22:05)
[2019-05-06 09:56] LABS: AMORPHOUS SEDIMENT,URINE TRACE /HPF; APPEARANCE,URINE CLOUDY; BILIRUBIN,URINE NEGATIVE (NEGATIVE); COLOR,URINE YELLOW; GLUCOSE, URINE NEGATIVE (NEGATIVE); KETONES,URINE NEGATIVE (NEGATIVE); LEUKOCYTE ESTERASE,URINE NEGATIVE (NEGATIVE); NITRITE,URINE NEGATIVE (NEGATIVE); PROTEIN,URINE 30 mg/dL (NEGATIVE); URIC ACID CRYSTALS,URINE MODERATE /HPF; URINE SPECIFIC GRAVITY 1.019; UROBILINOGEN,URINE NEGATIVE mg/dL (<2.0)
[2019-05-06] MEDS: NORMAL SALINE 10 ML SDV (SCHEDULED) IV SCH ×2 (09:57→22:05)
[2019-05-06] MEDS ORDERED: FERROUS SULFATE LIQUID 300 MG/5 ML UDC NG SCH (10:00)
[2019-05-06] MEDS ORDERED: CETIRIZINE 10 MG TABLET NG SCH (10:00)
[2019-05-06] MEDS: DOXYCYCLINE HYCLATE 100 MG in DEXTROSE 5%-WATER 250 ML IV SCH (11:12)
[2019-05-06 11:20] LABS: HEMATOCRIT 30.1 % (36.0-47.0); HEMOGLOBIN 9.8 g/dL (12.0-15.5); MEAN CORPUSCULAR HEMOGLOBIN 27.3 pg (27.0-33.4); MEAN CORPUSCULAR HGB CONC 32.5 g/dL (32.0-36.0); MEAN CORPUSCULAR VOLUME 84 fl (80-97); PLATELET COUNT 356 10^3/uL (150-450); RED BLOOD COUNT 3.58 10^6/uL (3.72-5.28); RED CELL DISTRIBUTION WIDTH 18.1 % (11.5-14.0); WHITE BLOOD COUNT 26.2 10^3/uL (4.0-10.5)
[2019-05-06 11:55] LABS: C-REACTIVE PROTEIN 202.5 mg/L (<10.0)
[2019-05-06 11:57] LABS: ABSOLUTE LYMPHOCYTES# (MANUAL) 1.3 10^3/uL (0.5-4.7); ANISOCYTOSIS 2+; BAND NEUTROPHILS % (MANUAL) 1 % (3-5); BASOPHILS % (MANUAL) 0 % (0-2); EOSINOPHILS % (MANUAL) 0 % (0-6); LYMPHOCYTES % (MANUAL) 5 % (13-45); MONOCYTES % (MANUAL) 0 % (3-13); PLATELET CLUMPS PRESENT; PLATELET COMMENT ADEQUATE; SEGMENTED NEUTROPHILS % (MAN) 94 % (42-78); TOTAL CELLS COUNTED 100
[2019-05-06] MEDS: HEPARIN SODIUM,PORCINE/D5W 25,000 UNIT/250 ML RTUINJ IV PRN (12:18)
[2019-05-06] MEDS: HEPARIN SOD (PORCINE) 1,000 UNIT/ML 10 ML VIAL IV PRN ×2 (12:21→18:53)
[2019-05-06 12:31] LABS: INTERNATIONAL RATION (INR) 1.42; PARTIAL THROMBOPLASTIN TIME 26.1 SEC (23.5-35.8); PROTHROMBIN TIME 17.5 SEC (11.4-15.4)
[2019-05-06] MEDS ORDERED: FENTANYL CITRATE INJ/PF 100 MCG/2 ML AMPUL IV ONE (17:14)
[2019-05-06] MEDS ORDERED: FENTANYL CITRATE INJ/PF 100 MCG/2 ML AMPUL ONE (17:15)
[2019-05-06 17:57] LABS: ARTERIAL BLOOD BASE EXCESS 5.8 mmol/L; ARTERIAL BLOOD H2CO3 1.54 mmol/L (1.05-1.35); ARTERIAL BLOOD HCO3 31.5 mmol/L (20-24); ARTERIAL BLOOD O2 SATURATION 90.9 % (94-98); ARTERIAL BLOOD PCO2 51.3 mmHg (35-45); ARTERIAL BLOOD PH 7.41 (7.35-7.45); ARTERIAL BLOOD PO2 60.4 mmHg (80-100); ARTERIAL BLOOD TOTAL CO2 33.1 mmol/L (21-25)
[2019-05-06 17:58] LABS: ARTERIAL BLOOD FIO2 50%
[2019-05-07] MEDS: DOXYCYCLINE HYCLATE 100 MG in DEXTROSE 5%-WATER 250 ML IV SCH ×2 (00:22→10:30)
[2019-05-07] MEDS: PROPOFOL 1,000 MG/100 ML INFUS..BTL IV PRN ×8 (01:26→22:00)
[2019-05-07 05:38] LABS: ARTERIAL BLOOD BASE EXCESS 0.8 mmol/L; ARTERIAL BLOOD H2CO3 1.29 mmol/L (1.05-1.35); ARTERIAL BLOOD HCO3 25.8 mmol/L (20-24); ARTERIAL BLOOD PO2 74.9 mmHg (80-100); ARTERIAL BLOOD TOTAL CO2 27.1 mmol/L (21-25)
[2019-05-07 05:41] LABS: ARTERIAL BLOOD FIO2 50%
[2019-05-07 05:46] LABS: HEMATOCRIT 28.2 % (36.0-47.0); HEMOGLOBIN 8.8 g/dL (12.0-15.5); MEAN CORPUSCULAR HEMOGLOBIN 26.1 pg (27.0-33.4); MEAN CORPUSCULAR HGB CONC 31.3 g/dL (32.0-36.0); MEAN CORPUSCULAR VOLUME 83 fl (80-97); PLATELET COUNT 346 10^3/uL (150-450); RED BLOOD COUNT 3.38 10^6/uL (3.72-5.28); RED CELL DISTRIBUTION WIDTH 18.4 % (11.5-14.0); WHITE BLOOD COUNT 25.6 10^3/uL (4.0-10.5)
[2019-05-07] MEDS: PANTOPRAZOLE SODIUM 40 MG PACKET.DR NG SCH (05:51)
[2019-05-07] MEDS: LEVOTHYROXINE SODIUM 0.112 MG TABLET NG SCH (05:51)
[2019-05-07] MEDS: ROPINIROLE HCL 2 MG TABLET NG SCH ×3 (05:51→21:55)
[2019-05-07] MEDS: VANCOMYCIN HCL 750 MG in DEXTROSE 5%-WATER 250 ML IV SCH ×2 (05:51→17:38)
[2019-05-07] MEDS: MINERAL OIL/PETROLATUM,WHITE OPH OINT 3.5 GM OU SCH ×3 (05:51→21:54)
[2019-05-07 05:54] LABS: PHOSPHORUS 3.5 mg/dL (2.5-4.5)
[2019-05-07 06:08] LABS: ABSOLUTE LYMPHOCYTES# (MANUAL) 1.3 10^3/uL (0.5-4.7); ABSOLUTE MONOCYTES # (MANUAL) 1.5 10^3/uL (0.1-1.4); BAND NEUTROPHILS % (MANUAL) 6 % (3-5); BASOPHILS % (MANUAL) 0 % (0-2); EOSINOPHILS % (MANUAL) 0 % (0-6); LYMPHOCYTES % (MANUAL) 5 % (13-45); MONOCYTES % (MANUAL) 6 % (3-13); SEGMENTED NEUTROPHILS % (MAN) 83 % (42-78); TOTAL CELLS COUNTED 100
[2019-05-07 06:09] LABS: ANISOCYTOSIS 2+; HYPOCHROMASIA 1+; PLATELET COMMENT ADEQUATE; POLYCHROMASIA 1+
[2019-05-07 06:14] LABS: VANCOMYCIN,TROUGH 15.3 ug/mL (5.0-20.0)
[2019-05-07 06:26] LABS: FREE T4 (FREE THYROXINE) 1.79 ng/dL (0.78-2.19)
[2019-05-07 06:40] LABS: THYROID STIMULATING HORMONE 0.03 uIU/mL (0.47-4.68)
[2019-05-07 07:04] LABS: C-REACTIVE PROTEIN 167.5 mg/L (<10.0)
[2019-05-07] MEDS: HEPARIN SODIUM,PORCINE/D5W 25,000 UNIT/250 ML RTUINJ IV PRN (07:21)
[2019-05-07 07:42] LABS: INTERNATIONAL RATION (INR) 1.39; PROTHROMBIN TIME 17.2 SEC (11.4-15.4)
[2019-05-07 07:44] LABS: PARTIAL THROMBOPLASTIN TIME 79.8 SEC (23.5-35.8)
[2019-05-07] MEDS: IPRATROPIUM/ALBUTEROL 0.5-2.5 MG/3 ML AMPUL NEB SCH ×4 (08:42→20:38)
[2019-05-07] MEDS: ROFLUMILAST 500 MCG TABLET NG SCH (09:04)
[2019-05-07] MEDS: ATORVASTATIN CALCIUM 20 MG TABLET NG SCH (09:04)
[2019-05-07] MEDS: BUSPIRONE HCL 10 MG TABLET NG SCH ×2 (09:04→21:53)
[2019-05-07] MEDS: ASPIRIN 81 MG TABLET, CHEWABLE NG SCH (09:04)
[2019-05-07] MEDS: CITALOPRAM HYDROBROMIDE 20 MG TABLET NG SCH (09:04)
[2019-05-07] MEDS: OSELTAMIVIR PHOSPHATE 75 MG CAPSULE NG SCH ×2 (09:05→17:40)
[2019-05-07] MEDS: NORMAL SALINE 10 ML SDV (SCHEDULED) IV SCH ×2 (09:05→21:54)
[2019-05-07] MEDS: CEFEPIME 1 GM/D5W RTU 1 GM/50 ML RTUPB IV SCH ×2 (09:05→21:54)
[2019-05-07] MEDS: CYANOCOBALAMIN (VITAMIN B-12) 1,000 MCG TABLET NG SCH (09:05)
--- NOTE | 2019-05-07 10:13 | RADIOLOGY REPORT (SQ) ---
EXAM DESCRIPTION: CHEST SINGLE VIEW COMPLETED DATE/TIME: 05/07/2019 5:22 am REASON FOR STUDY: ARDS COMPARISON: 05/05/2019 EXAM PARAMETERS: NUMBER OF VIEWS: One view. TECHNIQUE: Single frontal radiographic view of the chest acquired. RADIATION DOSE: NA LIMITATIONS: None. FINDINGS: LUNGS AND PLEURA: Improved aeration of the right upper lobe in the setting of diffuse inte rstitial and airspace opacities. Small bilateral pleural effusions. No pneumothoraces. MEDIASTINUM AND HILAR STRUCTURES: Stable. HEART AND VASCULAR STRUCTURES: Stable. BONES: No acute findings. HARDWARE: Right upper extremity PICC, endotracheal, and enteric tubes appear stable. Incidental note is again made of a transvenous pacer. OTHER: No other significant finding. IMPRESSION: Improved aeration of the right upper lobe. Stable lines and tubes. TECHNICAL DOCUMENTATION: JOB ID: [id number] 2010 [employer]- All Rights Reserved Reading location - IP/workstation name: [email or web address]
[2019-05-07 15:02] LABS: ALBUMIN 2.6 g/dL (3.5-5.0); ALKALINE PHOSPHATASE 162 U/L (38-126); ANION GAP 10 (5-19); ASPARTATE AMINO TRANSFERASE 16 U/L (14-36); BILIRUBIN,DIRECT 0.6 mg/dL (0.0-0.4); BILIRUBIN,TOTAL 0.6 mg/dL (0.2-1.3); BLOOD UREA NITROGEN 57 mg/dL (7-20); CALCIUM 7.7 mg/dL (8.4-10.2); CARBON DIOXIDE 29 mmol/L (22-30); CHLORIDE 99 mmol/L (98-107); GLUCOSE 187 mg/dL (75-110); POTASSIUM 3.7 mmol/L (3.6-5.0)
[2019-05-07 15:12] LABS: TOTAL PROTEIN 5.3 g/dL (6.3-8.2)
--- NOTE | 2019-05-07 15:14 | PDOC CRITICAL CARE PROG REPORT ---
General Date:: 05/07/19 ICU Day:: 6 Ventilator Day:: 3 Hospital Day:: 15 Resuscitation Status: Full Code Medical Power of Freelance Graphic Designer: Wang Events in the past 12 to 24 Hours:: 05.07.2019: Patient's FiO2 requirements are still at 50%. Evaluation at bedside to determine suitability for SBT showed an increase in respiratory rate and overall RSBI. Did not tolerate pressure support of 12 and PEEP of 8 and return back to conventional settings. Peak and plateau pressures have not been excessively high. She is sedated on 45 of propofol because of increased agitation yesterday. Blood pressures have been low normal. 05.06.2019: The patient had an eventful day in the past 24 hours. She required i ntubation because of increasing oxygen requirements. Intensive investigation being carried out to rule out viral pneumonitis including SARS2 CO VID 19. We have limited the amount of HCP interactions and have ordered chest x-rays as needed. Hemodynamically she has been non-labile. Morning there appeared to be some electrical artifact from the EKG which made it appear that the patient might have V. tach. However review of the arterial line tracings show no irregular heartbeat. Evaluation of the pacemaker has been ordered. Is been no hypotension and she has not required any vasopressors. 05.05.2019: Patient had been downgraded to IMCU status but has had increasing oxygen requirements. Today she is on high flow at 60 L with FiO2 approaching 90%. She endorses dyspnea and does not complain that it is any worse than yesterday. There is been no evidence of bleeding. Review of systems relevant to events:: 05.07.2019: Patient's blood pressures have been low normal. Lasix had been discontinued. Review of chest x-ray shows interstitial pattern which has not w orsened. Viral and bacteriologic studies still pending no positive results. CRP and ferritin still elevated. Started on heparin drip for background atrial fibrillation. No hemodynamic lability. 05.06.2019: Notable elevation in ferritin and CRP. Chest x-ray done yesterday shows increasing ground-glass opacities distinguished worsening over the past few days. She remains appropriately sedated Viral cultures, Gram stain and respiratory cultures still pending. 05.05.2019: Patient had been downgraded to IMCU status but has had increasing oxygen requirements. Today she is on high flow at 60 L with FiO2 approaching 90%. She endorses dyspnea and does not complain that it is any worse than yesterday. There is been no evidence of bleeding. Reason for ICU Addmission:: Hypoxic respiratory failure - Medications: Vasopressors:: None Sedation:: Propofol Physical Exam Vital Signs: Temp Pulse Resp BP Pulse Ox 99.5 F 81 24 H 106/58 L 96 05/07/19 10:00 05/07/19 12:24 05/07/19 12:24 05/07/19 09:51 05/07/19 12:24 Intake & Output 05/06/19 05/07/19 05/08/19 06:59 06:59 06:59 Intake Total 780 2514 782 Output Total 670 1380 275 Balance 110 1134 507 Weight 92 kg 92 kg Weight/Height Weight 92 kg Height 5 ft 5 in General appearance: PRESENT: no acute distress, morbidly obese, well-nourished Exam: Intubated critically ill-appearing but nontoxic 69-year-old female no active distress sedated RASs scale of -2 Head exam: PRESENT: atraumatic, normocephalic Eye exam: PRESENT: conjunctival injection, conjunctiva pink, PERRLA. ABSENT: nystagmus, scleral icterus Ear exam: ABSENT: bleeding Teeth exam: PRESENT: edentulous Neck exam: ABSENT: carotid bruit, JVD, lymphadenopathy, tenderness, thyromegaly, tracheal deviation Respiratory exam: PRESENT: clear to auscultation armand, crackles, other - During weaning evaluation developed labored breathing but otherwise unlabored.. ABSENT: accessory muscle use, rales, rhonchi, wheezes Cardiovascular exam: PRESENT: RRR, other Pulses: PRESENT: +1 pedal pulses bilateral GI/Abdominal exam: PRESENT: normal bowel sounds, soft. ABSENT: ascites, distended, guarding, mass, organolmegaly, rebound, tenderness Rectal exam: PRESENT: deferred Gentrourinary exam: PRESENT: indwelling catheter Extremities exam: PRESENT: +1 edema Musculoskeletal exam: ABSENT: deformity, dislocation Neurological exam: PRESENT: altered - Patient follows commands in the lower extremity. This is inconsistent. She will not follow commands in the upper extremity but with noxious stimulus moves both arms and hands. Densities are both downgoing. Pupils are equal and reactive. She will open her eyes to noxious stimulus. There is no focal motor deficit except lack of command following in the upper extremities and inconsistently in the lower extremity. Skin exam: PRESENT: dry, intact, warm. ABSENT: cyanosis, pallor, petechiae, rash, urticaria, vesicles Tubes/Lines: PRESENT: Endotracheal Tube, Arterial Catheter, Other - Oral gastric tube, urinary catheter tube, right radial A-line placed 05/06/2019 Laboratory/Radiographs Laboratory Results: 05/07/19 05:25 05/07/19 05:25 05/06/19 05/07/19 05/07/19 17:45 05:25 05:25 WBC RBC Hgb Hct MCV MCH MCHC RDW Plt Count Seg Neutrophils % Carbonic Acid 1.54 H 1.29 HCO3/H2CO3 Ratio 20:1 20:1 ABG pH 7.41 7.40 ABG pCO2 51.3 H 43.0 ABG pO2 60.4 L 74.9 L ABG HCO3 31.5 H 25.8 H ABG O2 Saturation 90.9 L 95.0 ABG Base Excess 5.8 0.8 FiO2 50% 50% Creatinine 1.11 Est GFR ( Amer) 59 L Phosphorus 3.5 Magnesium 2.3 Ferritin C-Reactive Protein TSH Free T4 05/07/19 05/07/19 05/07/19 05:25 05:25 05:25 WBC 25.6 H RBC 3.38 L Hgb 8.8 L Hct 28.2 L MCV 83 MCH 26.1 L MCHC 31.3 L RDW 18.4 H Plt Count 346 Seg Neutrophils % Not Reportable Carbonic Acid HCO3/H2CO3 Ratio ABG pH ABG pCO2 ABG pO2 ABG HCO3 ABG O2 Saturation ABG Base Excess FiO2 Creatinine Est GFR ( Amer) Phosphorus Magnesium Ferritin 476.00 H C-Reactive Protein 167.5 H TSH 0.03 L Free T4 1.79 04/22/19 04/27/19 23:10 04:20 Troponin I < 0.012 NT-Pro-B Natriuret Pep 1520 H 705 H Impressions: Interventional Vascular Procedure 05/01/19 00:00 IMPRESSION: SUCCESSFUL PLACEMENT OF A 5 FR DUAL LUMEN 35 CM PICC IN THE RIGHT BASILIC VEIN. PICC Line Insertion 05/01/19 00:00 IMPRESSION: SUCCESSFUL PLACEMENT OF A 5 FR DUAL LUMEN 35 CM PICC IN THE RIGHT BASILIC VEIN. KUB X-Ray 05/05/19 00:00 IMPRESSION: Enteric tube tip overlies proximal stomach. Chest X-Ray 05/07/19 05:00 IMPRESSION: Improved aeration of the right upper lobe. Stable lines and tubes. All labs, radiographs, diagnostic studies and EKGs were personally reviewed: Yes In addition, reports of radiographic and diagnostic studies were read: Yes Assessment and Plan - Diagnosis (1) ARDS (adult respiratory distress syndrome) Is this a current diagnosis for this admission?: Yes Plan: Improving slightly. P/F ratio 150 (2) Acute respiratory failure with hypoxia and hypercapnia Is this a current diagnosis for this admission?: Yes Plan: Please see plans below (3) Anemia, blood loss Is this a current diagnosis for this admission?: Yes (4) COPD exacerbation Is this a current diagnosis for this admission?: Yes (5) Dependence on supplemental oxygen Is this a current diagnosis for this admission?: Yes (6) Leucocytosis Qualifiers: Leukocytosis type: unspecified Qualified Code(s): D72.829 - Elevated white blood cell count, unspecified Is this a current diagnosis for this admission?: Yes Plan: Has history of myelodysplasia with leukocytosis and anemia. Lymphopenic (7) Myelodysplasia (myelodysplastic syndrome) Is this a current diagnosis for this admission?: Yes (8) Anticoagulated Is this a current diagnosis for this admission?: Yes (9) Chronic atrial fibrillation Is this a current diagnosis for this admission?: Yes Plan Summary: 05.07.2019: Patient remains relatively non-labile as far as her respiratory status. She meets [place] criteria for moderate ARDS still awaiting PCR results for viral studies including SARS2 CO VID/19 Will continue to attempt to wean patient. Waiting negative COVID studies as well so as to not complicate possible need for noninvasive ventilation. The need to monitor peak and plateau pressures as well as suitability for transition to pressure support CPAP. I am hopeful that the improvement in her P/F ratio heralds the beginning of resolution of her acute pneumonitis. From an infectious disease standpoint the patient is still on broad-spectrum antibiotics including doxycycline. Continue treatment for influenza and await PCR on viral specimens as well as health department results for SARS2/COVID19. Continue patient in negative airflow room with protective personal wear for all health care providers (HCP). Continue to educate HCP's on guidelines and appropriate interactions with patient. Patient's blood pressure has been low normal and I am concerned that she may be developing adrenal insufficiency. In studies done in the past patients who have been on steroids and or elderly will develop some degree of relative adrenal insufficiency. Have been reticent to begin any steroids in light of the preliminary reports which suggest morbidity and mortality are reduced with its use. All the studies have not been investigated with robust cohort-RCT destinations it remains prudent to limit its use. That being said I have introduced a more physiologic Solu-Cortef dose to offset any adrenal insufficiency which may occur. Continue to follow CRP and ferritin as these are the only markers which may offer some evidence for improvement. We currently do not have procalcitonin at this hospital to allow for discontinuation of antibiotics. Bronchoscopy would be ill advised at this point until we are assured that COVID-19 has been ruled out. From a cardiac standpoint she has had no further artifactual electrical abnormalities. Have started on midodrine to mitigate any hypotension which is most likely related to sedation and her infectious state. Still with holding diuretic as well. From a hematologic standpoint patient has lymphopenia without leukopenia. She has a known history of myelodysplastic disease. Her hemoglobin hematocrit levels do not require any treatment. Continue supportive care. B12 levels are appropriate and continue current care. From an endocrine standpoint we have begun more physiologic dose Solu-Cortef. Will watch for glucose elevation. From a renal standpoint her creatinine is slightly elevated today which may be secondary to the diuresis over the last 24 hours. This has been discontinued as of yesterday. She is on vancomycin and will need to continue to monitor. Procalcitonin would be very helpful in this situation so as to mitigate the potential harmful effects of antibiotics. Will follow cultures and if negative from a bacteriologic standpoint tomorrow, will discontinue vancomycin. From a metabolic standpoint we will continue to monitor patient's electrolytes and volume status as well as pH. From a GI and alimentary tract perspective continue to monitor LFTs. She is tolerating her tube feeds. Will discuss with nutrition to assure that we are feeding appropriately Mental alert neurological standpoint patient is sedated and will try to begin weaning for appropriate RASS. There is to be no focal neurological deficits but of concern because of her hypoxia and use of heparin. We will continue supportive care with vigilant monitoring. Family not available for update but will attempt to reach them by phone. 05.06.2019: Patient's respiratory status has improved however she is still dependent on mechanical ventilation. We have reduced her FiO2 to 50% but have maintained her PEEP at 10. Even the complexity of the negative airflow room and the inability to introduce portable x-ray equipment, I have not ordered chest x-ray for today. We will order intermittently and have developed a plan to protect any aerosolized processes. Still awaiting confirmative viral and bacteriologic studies. Peak and plateau pressures are not elevated. P/F ratio slightly lower today but ove rall PO2 of 81 on 60% is acceptable. Discontinued steroids which is notably cause worsening mortality and morbidity if this is SARS2/CO VID19. From an infectious disease standpoint the patient has been covered with broad- spectrum antibiotics except for a azithromycin. Given her con commitment use of Celexa and previous cardiac history I have held this particular antibiotic. We will continue to monitor however I will place her on doxycycline until specimens are returned. We will continue treatment for influenza and await health department results for SARS2/COVID19. Continue patient in negative airflow room with protective personal wear for all health care providers (HCP's). From a cardiac standpoint the patient had what appeared to be artifactual changes on monitor not related to hypotension or changes in arterial waveform. The monitors and wires connected have been changed to assure that this is not equipment dysfunction. I have ordered interrogation of her pacemaker as well. Currently she is in a paced rhythm. He does have a history of atrial fibrillation and flutter and her Eliquis has been held since yesterday with the plan for implementation of standardized heparin for A. fib. This has been initiated this morning. From a hematologic standpoint patient does have a history of myelodysplastic syndrome and review of consultations and labs was undertaken. She has a history of leukocytosis which has made the consideration for the Covid-19 somewhat problematic. She has a mild degree of anemia related to this but nothing that requires treatment at this point. Given concern for infectious component discontinued iron therapy. From an endocrine standpoint I have ordered TSH. We will continue her Synthroid in order to support metabolic processes. Given her frequent use of steroids reconnaissance for adrenal insufficiency will need to be maintained. Glucose ranges are acceptable. From a renal standpoint we have continue the patient on Lasix twice daily to reduce the amount of interstitial fluid in the lung. Ultrasound of the IVC shows it to be well dilated and she may require further diuresis. From a metabolic standpoint patient has hyperferritinemia and elevated CRP which are consistent with inflammatory pneumonitis diseases. We will continue to monitor GI standpoint we will start the patient on nutrition and have limited any IV fluids parenterally. Vigilance for LFT elevation in the face of what could potentially be a significant viral illness is being maintained. From a neurologic standpoint patient is suitably sedated and appropriate for the situation. She is unable to be liberated from the ventilator however we will continue to monitor her neurologic and respiratory status. 05.05.2019: Patient's respiratory status has worsened. She is requiring higher oxygen concentration and flow. Her chest x-ray shows an evolving interstitial pattern which was not present on admission. This type of presentation can be seen in influenza and other viral related pneumonitis however, given the current state of SARS2 CoViD-19 and its known bi- modal and incubation period make this a very distinct clinical presentation and it is possible and conceivable that this patient may have this. To that end, I have instituted precautionary measures including re-testing for influenza and have spoken to the [facility] who have given permission to check for the above. Also discussed with our infectious disease department. We have preemptively shut the patient's room off and will be transferring her to a negative airflow room while she has a mask. Her respiratory status is such that she is going to require intubation and we will limit HCP's exposure. Instructed all staff to use PPE and 95 mask given the need for intubation as well as eye protective gear. We will check a nasopharyngeal swab for a routine viral panel and for SARS to COViD-19. Currently it is not recommended to perform bronchoscopy. I have increased the patient's steroids but will discontinue them until this unique virus has been ruled out. Clinically steroids have been shown to worsen outcomes and potentially contribute to mortality. I have placed her on Tamiflu until influenza PCR has returned. I did discuss with her family and updated them on her respiratory status and they informed me that various family members have had influenza a and B. In addition, a family member traveled to [place]. There is been no other known travel related connections. Patient's chest x-ray and oxygen requirements are consistent with early ARDS. We will broaden out antibiotic until we can obtain viral information. Regarding her respiratory status she will be placed on mechanical ventilation with obvious protection provided. Follow routine ARDS treatment guidelines. Critical Time Critical Time (minutes): 65 Level of Care: ICU -: 1. The care of a critical patient is a dynamic process. This note is a employer relations representative synopsis but static in nature. The timeframe for treatments given in order is not necessarily the actual time these treatments may have been done. 2. This patient requires critical care secondary to ongoing requirements for therapy not offered or safe outside the critical care environment. Transfer to a lower level of care will result in altered life or limb morbidity and mortality. 3. Multidisciplinary rounds completed. 4. ABCDE bundle addressed.
[2019-05-07] MEDS: MIDODRINE HCL 5 MG TABLET PO SCH ×2 (17:34→17:35)
[2019-05-07] MEDS: HYDROCORTISONE SOD SUCCINATE INJ/PF 100 MG/2 ML SDV IV SCH ×2 (17:39→21:53)
[2019-05-08] MEDS: PROPOFOL 1,000 MG/100 ML INFUS..BTL IV PRN ×5 (01:01→18:16)
[2019-05-08] MEDS: HEPARIN SODIUM,PORCINE/D5W 25,000 UNIT/250 ML RTUINJ IV PRN (03:25)
[2019-05-08] MEDS: HYDROCORTISONE SOD SUCCINATE INJ/PF 100 MG/2 ML SDV IV SCH ×3 (05:58→21:44)
[2019-05-08] MEDS: LEVOTHYROXINE SODIUM 0.112 MG TABLET NG SCH (05:58)
[2019-05-08] MEDS: MINERAL OIL/PETROLATUM,WHITE OPH OINT 3.5 GM OU SCH ×3 (05:58→21:45)
[2019-05-08] MEDS: ROPINIROLE HCL 2 MG TABLET NG SCH ×3 (05:58→21:44)
[2019-05-08] MEDS: PANTOPRAZOLE SODIUM 40 MG PACKET.DR NG SCH (05:59)
[2019-05-08] MEDS: VANCOMYCIN HCL 750 MG in DEXTROSE 5%-WATER 250 ML IV SCH ×2 (05:59→17:55)
[2019-05-08 06:31] LABS: ARTERIAL BLOOD BASE EXCESS 4.6 mmol/L; ARTERIAL BLOOD H2CO3 1.58 mmol/L (1.05-1.35); ARTERIAL BLOOD HCO3 30.4 mmol/L (20-24); ARTERIAL BLOOD O2 SATURATION 95.8 % (94-98); ARTERIAL BLOOD PCO2 52.4 mmHg (35-45); ARTERIAL BLOOD PH 7.38 (7.35-7.45); ARTERIAL BLOOD PO2 82.7 mmHg (80-100); ARTERIAL BLOOD TOTAL CO2 32.1 mmol/L (21-25)
[2019-05-08 06:32] LABS: ARTERIAL BLOOD FIO2 45%
[2019-05-08 06:35] LABS: HEMATOCRIT 25.5 % (36.0-47.0); HEMOGLOBIN 8.2 g/dL (12.0-15.5); MEAN CORPUSCULAR HEMOGLOBIN 26.6 pg (27.0-33.4); MEAN CORPUSCULAR HGB CONC 32.3 g/dL (32.0-36.0); MEAN CORPUSCULAR VOLUME 83 fl (80-97); PLATELET COUNT 290 10^3/uL (150-450); RED BLOOD COUNT 3.09 10^6/uL (3.72-5.28); WHITE BLOOD COUNT 27.6 10^3/uL (4.0-10.5)
[2019-05-08 06:38] LABS: INTERNATIONAL RATION (INR) 1.39; PROTHROMBIN TIME 17.2 SEC (11.4-15.4)
[2019-05-08 06:41] LABS: PARTIAL THROMBOPLASTIN TIME 113.5 SEC (23.5-35.8)
[2019-05-08 07:01] LABS: ALBUMIN 2.5 g/dL (3.5-5.0); ALKALINE PHOSPHATASE 145 U/L (38-126); ANION GAP 8 (5-19); ASPARTATE AMINO TRANSFERASE 14 U/L (14-36); BLOOD UREA NITROGEN 49 mg/dL (7-20); CARBON DIOXIDE 32 mmol/L (22-30); CHLORIDE 94 mmol/L (98-107); GLUCOSE 203 mg/dL (75-110); POTASSIUM 3.6 mmol/L (3.6-5.0)
[2019-05-08 07:12] LABS: BILIRUBIN,DIRECT 0.6 mg/dL (0.0-0.4); BILIRUBIN,TOTAL 0.7 mg/dL (0.2-1.3); CALCIUM 7.4 mg/dL (8.4-10.2); TOTAL PROTEIN 5.1 g/dL (6.3-8.2)
[2019-05-08] MEDS: IPRATROPIUM/ALBUTEROL 0.5-2.5 MG/3 ML AMPUL NEB SCH ×4 (07:45→21:26)
[2019-05-08 08:11] LABS: ABSOLUTE MONOCYTES # (MANUAL) 1.1 10^3/uL (0.1-1.4); BASOPHILS % (MANUAL) 0 % (0-2); EOSINOPHILS % (MANUAL) 0 % (0-6); LYMPHOCYTES % (MANUAL) 0 % (13-45); MONOCYTES % (MANUAL) 4 % (3-13); SEGMENTED NEUTROPHILS % (MAN) 96 % (42-78); TOTAL CELLS COUNTED 100
[2019-05-08 08:12] LABS: ANISOCYTOSIS 1+; OVALOCYTES SLIGHT; POLYCHROMASIA SLIGHT; TEAR DROP CELLS SLIGHT
[2019-05-08 08:13] LABS: PLATELET CLUMPS PRESENT; PLATELET COMMENT ADEQUATE
[2019-05-08] MEDS: CYANOCOBALAMIN (VITAMIN B-12) 1,000 MCG TABLET NG SCH (09:25)
[2019-05-08] MEDS: OSELTAMIVIR PHOSPHATE 75 MG CAPSULE NG SCH ×2 (09:25→17:55)
[2019-05-08] MEDS: MIDODRINE HCL 5 MG TABLET PO SCH ×3 (09:25→17:55)
[2019-05-08] MEDS: CITALOPRAM HYDROBROMIDE 20 MG TABLET NG SCH (09:25)
[2019-05-08] MEDS: ASPIRIN 81 MG TABLET, CHEWABLE NG SCH (09:25)
[2019-05-08] MEDS: ATORVASTATIN CALCIUM 20 MG TABLET NG SCH (09:25)
[2019-05-08] MEDS: BUSPIRONE HCL 10 MG TABLET NG SCH ×2 (09:26→21:44)
[2019-05-08] MEDS: CEFEPIME 1 GM/D5W RTU 1 GM/50 ML RTUPB IV SCH ×2 (09:26→21:44)
[2019-05-08] MEDS: ROFLUMILAST 500 MCG TABLET NG SCH (09:26)
[2019-05-08 09:50] LABS: C-REACTIVE PROTEIN 204.3 mg/L (<10.0)
[2019-05-08] MEDS: DOXYCYCLINE HYCLATE 100 MG in DEXTROSE 5%-WATER 250 ML IV SCH ×4 (10:11→22:21)
[2019-05-08] MEDS ORDERED: ERTAPENEM SODIUM 1 GM in NORMAL SALINE 50 ML IV SCH (12:00)
[2019-05-08] MEDS ORDERED: DEXTROSE 50%-WATER 25 GM/50 ML DISP.SYRIN IV PRN ×2 (12:09)
[2019-05-08] MEDS ORDERED: GLUCAGON,HUMAN RECOMB 1 MG INJ IM PRN (12:09)
[2019-05-08] MEDS ORDERED: DEXTROSE 40% GEL 15 GM TUBE PO PRN ×2 (12:09)
[2019-05-08] MEDS: NORMAL SALINE 10 ML SDV (SCHEDULED) IV SCH ×2 (12:42→21:45)
[2019-05-08] MEDS: INSULIN REG, HUMAN 100 UNIT/ML 3 ML VIAL (PYX) SUBCUT SCH ×2 (13:59→18:40)
[2019-05-08 16:02] LABS: INTERNATIONAL RATION (INR) 1.35; PROTHROMBIN TIME 16.8 SEC (11.4-15.4)
--- NOTE | 2019-05-08 18:04 | PDOC CRITICAL CARE PROG REPORT ---
General Date:: 05/08/19 ICU Day:: 7 Ventilator Day:: 4 Hospital Day:: 16 Resuscitation Status: Full Code Medical Power of Ceramic [employer] Designer: Wang Events in the past 12 to 24 Hours:: 05.08.2019: Patient has remained relatively non-labile in the last 24 hours. Ventilator has been placed on pressure support of 15/8 and patient has been tolerating this. Is been no fever or hemodynamic instability. Was started on midodrine because of low normal blood pressures yesterday as well as Solu-Cortef because of her recent and chronic use of steroids. No chest x-ray done today to prevent healthcare personnel from over exposure pending viral studies. 05.07.2019: Patient's FiO2 requirements are still at 50%. Evaluation at bedside to determine suitability for SBT showed an increase in respiratory rate and ove rall RSBI. Did not tolerate pressure support of 12 and PEEP of 8 and return back to conventional settings. Peak and plateau pressures have not been excessively high. She is sedated on 45 of propofol because of increased agitation yesterday. Blood pressures have been low normal. 05.06.2019: The patient had an eventful day in the past 24 hours. She required intubation because of increasing oxygen requirements. Intensive investigation being carried out to rule out viral pneumonitis including SARS2 CO VID 19. We have limited the amount of HCP interactions and have ordered chest x-rays as n eeded. Hemodynamically she has been non-labile. Morning there appeared to be some electrical artifact from the EKG which made it appear that the patient might have V. tach. However review of the arterial line tracings show no irregular heartbeat. Evaluation of the pacemaker has been ordered. Is been no hypotension and she has not required any vasopressors. 05.05.2019: Patient had been downgraded to IMCU status but has had increasing oxygen requirements. Today she is on high flow at 60 L with FiO2 approaching 90%. She endorses dyspnea and does not complain that it is any worse than yesterday. There is been no evidence of bleeding. Review of systems relevant to events:: 05.08.2019: Overall improvement in blood pressure. Sedation is on weaning protocol. She is tolerating tube feeds. No fever. Fight O2 now down to 40%. Plateaus acceptable and less than 30. P/F ratio: 184. 150 on 05.07.2019 05.07.2019: Patient's blood pressures have been low normal. Lasix had been discontinued. Review of chest x-ray shows interstitial pattern which has not worsened. Viral and bacteriologic studies still pending no positive results. CRP and ferritin still elevated. Started on heparin drip for background atrial fibrillation. No hemodynamic lability. 05.06.2019: Notable elevation in ferritin and CRP. Chest x-ray done yesterday shows increasing ground-glass opacities distinguished worsening over the past few days. She remains appropriately sedated Viral cultures, Gram stain and respiratory cultures still pending. 05.05.2019: Patient had been downgraded to IMCU status but has had increasing oxygen requirements. Today she is on high flow at 60 L with FiO2 approaching 90%. She endorses dyspnea and does not complain that it is any worse than yesterday. There is been no evidence of bleeding. Reason for ICU Addmission:: Hypoxic respiratory failure - Medications: Vasopressors:: None Sedation:: Propofol Physical Exam Vital Signs: Temp Pulse Resp BP Pulse Ox 98.4 F 81 20 101/65 97 05/08/19 10:00 05/08/19 10:00 05/08/19 10:00 05/08/19 09:47 05/08/19 10:00 Intake & Output 05/07/19 05/08/19 05/09/19 06:59 06:59 06:59 Intake Total 2514 2492 427 Output Total 1380 1835 600 Balance 1134 657 -173 Weight 92 kg 92.2 kg Weight/Height Weight 92.2 kg Height 5 ft 5 in General appearance: PRESENT: no acute distress, disheveled, morbidly obese Exam: Intubated nontoxic ill appearing 69-year-old female no active distress responsive to voice Head exam: PRESENT: atraumatic, normocephalic Eye exam: PRESENT: conjunctival injection - Mild,, PERRLA. ABSENT: nystagmus, scleral icterus Mouth exam: PRESENT: moist, neck supple Teeth exam: PRESENT: edentulous Neck exam: ABSENT: carotid bruit, JVD, lymphadenopathy, thyromegaly, tracheal deviation Respiratory exam: PRESENT: clear to auscultation armand. ABSENT: accessory muscle use, rales, rhonchi, wheezes Cardiovascular exam: PRESENT: RRR, +S1, +S2 Pulses: PRESENT: +1 pedal pulses bilateral GI/Abdominal exam: PRESENT: normal bowel sounds, soft. ABSENT: ascites, distended, guarding, mass, organolmegaly, rebound, tenderness Rectal exam: PRESENT: deferred Gentrourinary exam: PRESENT: indwelling catheter Extremities exam: ABSENT: pedal edema Musculoskeletal exam: ABSENT: deformity, dislocation Neurological exam: PRESENT: altered - Intubated and sedated. RASS: -1 on Propofol. No focal deficits Focused psych exam: ABSENT: psychomotor agitation, restlessness Skin exam: PRESENT: dry, intact, normal color, warm. ABSENT: cyanosis, mottled, pallor, petechiae, rash, urticaria, vesicles Tubes/Lines: PRESENT: Endotracheal Tube, Central Line - PICC line, RAC, no erythema., Arterial Catheter, Other - OGT and Urinary catheter Laboratory/Radiographs Laboratory Results: 05/08/19 06:11 05/08/19 06:11 05/07/19 05/08/19 05/08/19 05:25 06:11 06:11 WBC 27.6 H RBC 3.09 L Hgb 8.2 L Hct 25.5 L MCV 83 MCH 26.6 L MCHC 32.3 RDW 18.0 H Plt Count 290 Seg Neutrophils % Not Reportable Carbonic Acid HCO3/H2CO3 Ratio ABG pH ABG pCO2 ABG pO2 ABG HCO3 ABG O2 Saturation ABG Base Excess FiO2 Sodium 137.6 Potassium 3.7 Chloride 99 Carbon Dioxide 29 Anion Gap 10 BUN 57 H Creatinine 1.11 Est GFR ( Amer) 59 L Glucose 187 H Calcium 7.7 L Phosphorus 3.5 Magnesium 2.3 Ferritin Total Bilirubin 0.6 AST 16 Alkaline Phosphatase 162 H Ammonia 14.2 C-Reactive Protein Total Protein 5.3 L Albumin 2.6 L 05/08/19 05/08/19 05/08/19 06:11 06:11 06:11 WBC RBC Hgb Hct MCV MCH MCHC RDW Plt Count Seg Neutrophils % Carbonic Acid 1.58 H HCO3/H2CO3 Ratio 19:1 ABG pH 7.38 ABG pCO2 52.4 H ABG pO2 82.7 ABG HCO3 30.4 H ABG O2 Saturation 95.8 ABG Base Excess 4.6 FiO2 45% Sodium 133.6 L Potassium 3.6 Chloride 94 L Carbon Dioxide 32 H Anion Gap 8 BUN 49 H Creatinine 1.16 Est GFR ( Amer) 56 L Glucose 203 H Calcium 7.4 L Phosphorus Magnesium Ferritin 372.00 H Total Bilirubin 0.7 AST 14 Alkaline Phosphatase 145 H Ammonia C-Reactive Protein 204.3 H Total Protein 5.1 L Albumin 2.5 L 05/06/19 03:51 Tracheal Aspirate Gram Stain - Final 05/06/19 03:51 Tracheal Aspirate Sputum Culture - Final C.albicans/C.dubliniensis Normal Rhea Absent 04/22/19 04/27/19 23:10 04:20 Troponin I < 0.012 NT-Pro-B Natriuret Pep 1520 H 705 H Impressions: Interventional Vascular Procedure 05/01/19 00:00 IMPRESSION: SUCCESSFUL PLACEMENT OF A 5 FR DUAL LUMEN 35 CM PICC IN THE RIGHT BASILIC VEIN. PICC Line Insertion 05/01/19 00:00 IMPRESSION: SUCCESSFUL PLACEMENT OF A 5 FR DUAL LUMEN 35 CM PICC IN THE RIGHT BASILIC VEIN. KUB X-Ray 05/05/19 00:00 IMPRESSION: Enteric tube tip overlies proximal stomach. Chest X-Ray 05/07/19 05:00 IMPRESSION: Improved aeration of the right upper lobe. Stable lines and tubes. All labs, radiographs, diagnostic studies and EKGs were personally reviewed: Yes In addition, reports of radiographic and diagnostic studies were read: Yes Assessment and Plan - Diagnosis (1) ARDS (adult respiratory distress syndrome) Is this a current diagnosis for this admission?: Yes Plan: Improving. P/F ratio up to 184 (2) Acute respiratory failure with hypoxia and hypercapnia Is this a current diagnosis for this admission?: Yes Plan: Please see plans below (3) Anemia, blood loss Is this a current diagnosis for this admission?: Yes (4) COPD exacerbation Is this a current diagnosis for this admission?: Yes (5) Dependence on supplemental oxygen Is this a current diagnosis for this admission?: Yes (6) Leucocytosis Qualifiers: Leukocytosis type: unspecified Qualified Code(s): D72.829 - Elevated white blood cell count, unspecified Is this a current diagnosis for this admission?: Yes Plan: Has history of myelodysplasia with leukocytosis and anemia. Lymphopenic (7) Myelodysplasia (myelodysplastic syndrome) Is this a current diagnosis for this admission?: Yes Plan: Likely the main reason for Hgb drop. No evidence of bleeding. Hgb 7.1 but will transfuse to maintain O2 carrying capacity. (8) Anticoagulated Is this a current diagnosis for this admission?: Yes (9) Chronic atrial fibrillation Is this a current diagnosis for this admission?: Yes Plan Summary: 05.08.2019: Patient has improved steadily but has not yet ready for liberation from mechanical ventilation. We will continue on pressure support CPAP and follow parameters to determine suitability. We will be very conservative with liberation until week know the results of the viral PCR testing which has been done. Continue supportive respiratory care and allow for diaphragmatic utilization to prevent prolonged respiratory failure Patient's PF ratio has improved as anticipated and we are encouraged that she appears to be improving overall. Will follow chest x-ray in the morning but not order daily x-rays. From a cardiac standpoint she remains in a paced rhythm at 80. Evaluation of the pacemaker is still pending to assure stability. We are waiting for negative confirmation for CO VID19 Hematologically patient still has leukocytosis consistent with myelodysplastic disease. 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 She will need further work-up as an outpatient. Her white blood cell count is expectedly higher after starting physiologically based steroid treatment. She does have lymphopenia and her bandemia has improved. Her anemia is not worse and does not require treatment. Her TSH is notably low I have stopped her current Synthroid dose and have changed her to a lower dose to be started in 3 to 4 days. Her glucose levels are slightly elevated probably related to steroids and have started a modified subcutaneous insulin protocol. She currently is on physiologically based steroids secondary to the concurrent use of chronic prednisone. She is also on Midodrine to maintain adequate blood pressures. We will continue to monitor her response to nutrition. I have asked for decrease in sedation however we need to be vigilant for agitation and unplanned extubation. Given the fact the patient is in a negative airflow room and there is no staff immediately available in the room sedation is somewhat essential to prevent inadvertent extubation. Will have to balance the risk of critical illne ss muscle deconditioning supposed to the significant risk of self extubation. She is on heparin for atrial fibrillation and has had no bleeding events. Her PTT was slightly elevated and we have adjusted her dosing. We will continue supportive care. Phone calls to the [facility] have been made to determine her Covid- 19 status and these results are still pending. 05.07.2019: Patient remains relatively non-labile as far as her respiratory status. She meets [place] criteria for moderate ARDS still awaiting PCR results for viral studies including SARS2 CO VID/19 Will continue to attempt to wean patient. Waiting negative COVID studies as well so as to not complicate possible need for noninvasive ventilation. The need to monitor peak and plateau pressures as well as suitability for transition to pressure support CPAP. I am hopeful that the improvement in her P/F ratio heralds the beginning of resolution of her acute pneumonitis. From an infectious disease standpoint the patient is still on broad-spectrum antibiotics including doxycycline. Continue treatment for influenza and await PCR on viral specimens as well as health department results for SARS2/COVID19. Continue patient in negative airflow room with protective personal wear for all health care providers (HCP). Continue to educate HCP's on guidelines and appropriate interactions with patient. Patient's blood pressure has been low normal and I am concerned that she may be developing adrenal insufficiency. In studies done in the past patients who have been on steroids and or elderly will develop some degree of relative adrenal insufficiency. Have been reticent to begin any steroids in light of the preliminary reports which suggest morbidity and mortality are reduced with its use. All the studies have not been inv estigated with robust cohort-RCT destinations it remains prudent to limit its use. That being said I have introduced a more physiologic Solu-Cortef dose to offset any adrenal insufficiency which may occur. Continue to follow CRP and ferritin as these are the only markers which may offer some evidence for improvement. We currently do not have procalcitonin at this hospital to allow for discontinuation of antibiotics. Bronchoscopy would be ill advised at this point until we are assured that COVID-19 has been ruled out. From a cardiac standpoint she has had no further artifactual electrical abnormalities. Have started on midodrine to mitigate any hypotension which is most likely related to sedation and her infectious state. Still with holding diuretic as well. From a hematologic standpoint patient has lymphopenia without leukopenia. She has a known history of myelodysplastic disease. Her hemoglobin hematocrit levels do not require any treatment. Continue supportive care. B12 levels are appropriate and continue current care. From an endocrine standpoint we have begun more physiologic dose Solu-Cortef. Will watch for glucose elevation. From a renal standpoint her creatinine is slightly elevated today which may be secondary to the diuresis over the last 24 hours. This has been discontinued as of yesterday. She is on vancomycin and will need to continue to monitor. P rocalcitonin would be very helpful in this situation so as to mitigate the potential harmful effects of antibiotics. Will follow cultures and if negative from a bacteriologic standpoint tomorrow, will discontinue vancomycin. From a metabolic standpoint we will continue to monitor patient's electrolytes and volume status as well as pH. From a GI and alimentary tract perspective continue to monitor LFTs. She is tolerating her tube feeds. Will discuss with nutrition to assure that we are feeding appropriately Mental alert neurological standpoint patient is sedated and will try to begin weaning for appropriate RASS. There is to be no focal neurological deficits but of concern because of her hypoxia and use of heparin. We will continue supportive care with vigilant monitoring. Family not available for update but will attempt to reach them by phone. 05.06.2019: Patient's respiratory status has improved however she is still dependent on mechanical ventilation. We have reduced her FiO2 to 50% but have maintained her PEEP at 10. Even the complexity of the negative airflow room and the inability to introduce portable x-ray equipment, I have not ordered chest x-ray for today. We will order intermittently and have developed a plan to protect any aerosolized processes. Still awaiting confirmative viral and bacteriologic studies. Peak and plateau pressures are not elevated. P/F ratio slightly lower today but overall PO2 of 81 on 60% is acceptable. Discontinued steroids which is notably cause worsening mortality and morbidity if this is SARS2/CO VID19. From an infectious disease standpoint the patient has been covered with broad- spectrum antibiotics except for a azithromycin. Given her con commitment use of Celexa and previous cardiac history I have held this particular antibiotic. We will continue to monitor however I will place her on doxycycline until specimens are returned. We will continue treatment for influenza and await health department results for SARS2/COVID19. Continue patient in negative airflow room with protective personal wear for all health care providers (HCP's). From a cardiac standpoint the patient had what appeared to be artifactual changes on monitor not related to hypotension or changes in arterial waveform. The monitors and wires connected have been changed to assure that this is not equipment dysfunction. I have ordered interrogation of her pacemaker as well. Currently she is in a paced rhythm. He does have a history of atrial fibrillation and flutter and her Eliquis has been held since yesterday with the plan for implementation of standardized heparin for A. fib. This has been initiated this morning. From a hematologic standpoint patient does have a history of myelodysplastic syndrome and review of consultations and labs was undertaken. She has a history of leukocytosis which has made the consideration for the Covid-19 somewhat problematic. She has a mild degree of anemia related to this but nothing that requires treatment at this point. Given concern for infectious component discontinued iron therapy. From an endocrine standpoint I have ordered TSH. We will continue her Synthroid in order to support metabolic processes. Given her frequent use of steroids reconnaissance for adrenal insufficiency will need to be maintained. Glucose ranges are acceptable. From a renal standpoint we have continue the patient on Lasix twice daily to reduce the amount of interstitial fluid in the lung. Ultrasound of the IVC shows it to be well dilated and she may require further diuresis. From a metabolic standpoint patient has hyperferritinemia and elevated CRP which are consistent with inflammatory pneumonitis diseases. We will continue to monitor GI standpoint we will start the patient on nutrition and have limited any IV fluids parenterally. Vigilance for LFT elevation in the face of what could potentially be a significant viral illness is being maintained. From a neurologic standpoint patient is suitably sedated and appropriate for the situation. She is unable to be liberated from the ventilator however we will continue to monitor her neurologic and respiratory status. 05.05.2019: Patient's respiratory status has worsened. She is requiring higher oxygen concentration and flow. Her chest x-ray shows an evolving interstitial pattern which was not present on admission. This type of presentation can be seen in influenza and other viral related pneumonitis however, given the current state of SARS2 CoViD-19 and its known bi- modal and incubation period make this a very distinct clinical presentation and it is possible and conceivable that this patient may have this. To that end, I have instituted precautionary measures including re-testing for influenza and have spoken to the [facility] who have given permission to check for the above. Also discussed with our infectious disease department. We have preemptively shut the patient's room off and will be t ransferring her to a negative airflow room while she has a mask. Her respiratory status is such that she is going to require intubation and we will limit HCP's exposure. Instructed all staff to use PPE and 95 mask given the need for intubation as well as eye protective gear. We will check a nasop haryngeal swab for a routine viral panel and for SARS to COViD-19. Currently it is not recommended to perform bronchoscopy. I have increased the patient's steroids but will discontinue them until this unique virus has been ruled out. Clinically steroids have been shown to worsen outcomes and potentially contribute to mortality. I have placed her on Tamiflu until influenza PCR has returned. I did discuss with her family and updated them on her respiratory status and they informed me that various family members have had influenza a and B. In addition, a family member traveled to [place]. There is been no other known travel related connections. Patient's chest x-ray and oxygen requirements are consistent with early ARDS. We will broaden out antibiotic until we can obtain viral information. Regarding her respiratory status she will be placed on mechanical ventilation with obvious protection provided. Follow routine ARDS treatment guidelines. Critical Time Critical Time (minutes): 60 Level of Care: ICU -: 1. The care of a critical patient is a dynamic process. This note is a apprenticeship training representative synopsis but static in nature. The timeframe for treatments given in order is not necessarily the actual time these treatments may have been done. 2. This patient requires critical care secondary to ongoing requirements for therapy not offered or safe outside the critical care environment. Transfer to a lower level of care will result in altered life or limb morbidity and mortality. 3. Multidisciplinary rounds completed. 4. ABCDE bundle addressed.
[2019-05-08 21:09] LABS: PROTHROMBIN TIME 16.2 SEC (11.4-15.4)
[2019-05-08 21:11] LABS: PARTIAL THROMBOPLASTIN TIME 58.9 SEC (23.5-35.8)
[2019-05-08] MEDS: HEPARIN SOD (PORCINE) 1,000 UNIT/ML 10 ML VIAL IV PRN (22:22)
[2019-05-09] MEDS: INSULIN REG, HUMAN 100 UNIT/ML 3 ML VIAL (PYX) SUBCUT SCH ×4 (00:33→18:24)
[2019-05-09] MEDS: HEPARIN SODIUM,PORCINE/D5W 25,000 UNIT/250 ML RTUINJ IV PRN ×2 (00:34→18:27)
[2019-05-09] MEDS: PROPOFOL 1,000 MG/100 ML INFUS..BTL IV PRN ×4 (03:16→23:31)
[2019-05-09 03:32] LABS: INTERNATIONAL RATION (INR) 1.27
[2019-05-09 03:33] LABS: PARTIAL THROMBOPLASTIN TIME 82.4 SEC (23.5-35.8)
[2019-05-09 03:36] LABS: ARTERIAL BLOOD FIO2 40%; ARTERIAL BLOOD H2CO3 1.23 mmol/L (1.05-1.35); ARTERIAL BLOOD O2 SATURATION 94.7 % (94-98); ARTERIAL BLOOD PCO2 40.8 mmHg (35-45); ARTERIAL BLOOD PH 7.47 (7.35-7.45); ARTERIAL BLOOD PO2 68.6 mmHg (80-100); ARTERIAL BLOOD TOTAL CO2 30.3 mmol/L (21-25)
[2019-05-09 03:37] LABS: HEMATOCRIT 24.9 % (36.0-47.0); MEAN CORPUSCULAR HEMOGLOBIN 26.5 pg (27.0-33.4); MEAN CORPUSCULAR HGB CONC 32.1 g/dL (32.0-36.0); MEAN CORPUSCULAR VOLUME 83 fl (80-97); PLATELET COUNT 301 10^3/uL (150-450); RED BLOOD COUNT 3.01 10^6/uL (3.72-5.28); RED CELL DISTRIBUTION WIDTH 18.3 % (11.5-14.0)
[2019-05-09 04:01] LABS: ABSOLUTE MONOCYTES # (MANUAL) 1.4 10^3/uL (0.1-1.4); BASOPHILS % (MANUAL) 0 % (0-2); EOSINOPHILS % (MANUAL) 0 % (0-6); LYMPHOCYTES % (MANUAL) 0 % (13-45); MONOCYTES % (MANUAL) 4 % (3-13); SEGMENTED NEUTROPHILS % (MAN) 96 % (42-78); TOTAL CELLS COUNTED 100
[2019-05-09 04:06] LABS: ANION GAP 6 (5-19); BLOOD UREA NITROGEN 46 mg/dL (7-20); CALCIUM 7.3 mg/dL (8.4-10.2); CARBON DIOXIDE 32 mmol/L (22-30); CHLORIDE 95 mmol/L (98-107); GLUCOSE 191 mg/dL (75-110); PHOSPHORUS 2.6 mg/dL (2.5-4.5); POTASSIUM 3.3 mmol/L (3.6-5.0)
[2019-05-09 04:07] LABS: ANISOCYTOSIS 1+; OVALOCYTES 1+; POIKILOCYTOSIS 1+; TOXIC GRANULATION 1+
[2019-05-09 04:08] LABS: PLATELET COMMENT ADEQUATE; TEAR DROP CELLS 1+
[2019-05-09 04:09] LABS: WHITE BLOOD COUNT 35.2 10^3/uL (4.0-10.5)
[2019-05-09] MEDS: ROPINIROLE HCL 2 MG TABLET NG SCH ×3 (06:55→21:49)
[2019-05-09] MEDS: VANCOMYCIN HCL 750 MG in DEXTROSE 5%-WATER 250 ML IV SCH ×2 (06:55→18:26)
[2019-05-09] MEDS: MINERAL OIL/PETROLATUM,WHITE OPH OINT 3.5 GM OU SCH ×3 (06:56→21:50)
[2019-05-09] MEDS: HYDROCORTISONE SOD SUCCINATE INJ/PF 100 MG/2 ML SDV IV SCH ×3 (06:56→21:49)
[2019-05-09] MEDS: PANTOPRAZOLE SODIUM 40 MG PACKET.DR NG SCH (06:56)
[2019-05-09] MEDS ORDERED: POTASSIUM PHOS,M-BASIC-D-BASIC 30 MMOL in NORMAL SALINE 500 ML IV ONE (07:00)
--- NOTE | 2019-05-09 08:34 | RADIOLOGY REPORT (SQ) ---
EXAM DESCRIPTION: CHEST SINGLE VIEW COMPLETED DATE/TIME: 05/09/2019 6:03 am REASON FOR STUDY: ARDS COMPARISON: Chest radiograph, 05/07/2019, 05/05/2019, 05/03/2019 EXAM PARAMETERS: NUMBER OF VIEWS: One view. TECHNIQUE: Single frontal radiographic view of the chest acquired. RADIATION DOSE: NA LIMITATIONS: None. FINDINGS: LUNGS AND PLEURA: Persistent patchy peripheral and basilar predominant opacities, stable f rom prior. No pneumothorax. Small bilateral pleural effusions. MEDIASTINUM AND HILAR STRUCTURES: No masses. Contour normal. HEART AND VASCULAR STRUCTURES: Moderate cardiomegaly. BONES: No acute findings. HARDWARE: Endotracheal tube with tip in the midthoracic trachea. Esophagogastric tube tip extends be low the diaphragm out of the field of view. OTHER: No other significant finding. IMPRESSION: Bibasilar and peripheral patchy opacities and small bilateral pleural effusions are stab le. TECHNICAL DOCUMENTATION: JOB ID: [id number] 2010 [employer]- All Rights Reserved Reading location - IP/workstation name: [email or web address]
[2019-05-09 08:46] LABS: INTERNATIONAL RATION (INR) 1.29; PROTHROMBIN TIME 16.2 SEC (11.4-15.4)
[2019-05-09 08:48] LABS: PARTIAL THROMBOPLASTIN TIME 79.3 SEC (23.5-35.8)
[2019-05-09] MEDS: IPRATROPIUM/ALBUTEROL 0.5-2.5 MG/3 ML AMPUL NEB SCH ×4 (08:52→21:17)
[2019-05-09] MEDS: CEFEPIME 1 GM/D5W RTU 1 GM/50 ML RTUPB IV SCH ×2 (09:34→21:50)
[2019-05-09 09:35] LABS: C-REACTIVE PROTEIN 166.5 mg/L (<10.0)
[2019-05-09] MEDS: ASPIRIN 81 MG TABLET, CHEWABLE NG SCH (09:38)
[2019-05-09] MEDS: MIDODRINE HCL 5 MG TABLET PO SCH ×3 (09:38→18:26)
[2019-05-09] MEDS: ATORVASTATIN CALCIUM 20 MG TABLET NG SCH (09:38)
[2019-05-09] MEDS: OSELTAMIVIR PHOSPHATE 75 MG CAPSULE NG SCH ×2 (09:38→18:30)
[2019-05-09] MEDS: BUSPIRONE HCL 10 MG TABLET NG SCH ×2 (09:38→21:49)
[2019-05-09] MEDS: NORMAL SALINE 10 ML SDV (SCHEDULED) IV SCH ×2 (09:39→21:50)
[2019-05-09] MEDS: ROFLUMILAST 500 MCG TABLET NG SCH (09:39)
[2019-05-09] MEDS: CYANOCOBALAMIN (VITAMIN B-12) 1,000 MCG TABLET NG SCH (09:39)
[2019-05-09 10:50] LABS: PATH REVIEW PATHOLOGIST REVIEWED
[2019-05-09] MEDS: DOXYCYCLINE HYCLATE 100 MG in DEXTROSE 5%-WATER 250 ML IV SCH ×2 (11:31→22:47)
[2019-05-09] MEDS: FENTANYL CITRATE INJ/PF 100 MCG/2 ML AMPUL IV PRN (14:09)
--- NOTE | 2019-05-09 18:30 | PDOC CRITICAL CARE PROG REPORT ---
General Date:: 05/09/19 ICU Day:: 8 Ventilator Day:: 5 Hospital Day:: 17 Resuscitation Status: Full Code Medical Power of Competitive Intelligence Analyst: [employer] Events in the past 12 to 24 Hours:: 05.09.2019: Received confirmation today that the patient is SARS2 coronavirus negative. She has been on pressure support and CPAP overnight however had increased her respiratory rate and developed decrease in tidal volume and so she was placed back on assist control. She is much more awake and attempts to communicate on the ventilator. 05.08.2019: Patient has remained relatively non-labile in the last 24 hours. Ventilator has been placed on pressure support of 15/8 and patient has been tolerating this. Is been no fever or hemodynamic instability. Was started on midodrine because of low normal blood pressures yesterday as well as Solu-Cortef because of her recent and chronic use of steroids. No chest x-ray done today to prevent healthcare personnel from over exposure pending viral studies. 05.07.2019: Patient's FiO2 requirements are still at 50%. Evaluation at bedside to determine suitability for SBT showed an increase in respiratory rate and overall RSBI. Did not tolerate pressure support of 12 and PEEP of 8 and return back to conventional settings. Peak and plateau pressures have not been excessively high. She is sedated on 45 of propofol because of increased agitation yesterday. Blood pressures have been low normal. 05.06.2019: The patient had an eventful day in the past 24 hours. She required intubation because of increasing oxygen requirements. Intensive investigation being carried out to rule out viral pneumonitis including SARS2 CO VID 19. We have limited the amount of HCP interactions and have ordered chest x-rays as needed. Hemodynamically she has been non-labile. Morning there appeared to be some electrical artifact from the EKG which made it appear that the patient migh t have V. tach. However review of the arterial line tracings show no irregular heartbeat. Evaluation of the pacemaker has been ordered. Is been no hypotension and she has not required any vasopressors. 05.05.2019: Patient had been downgraded to IMCU status but has had increasing oxygen requirements. Today she is on high flow at 60 L with FiO2 approaching 90%. She endorses dyspnea and does not complain that it is any worse than yesterday. There is been no evidence of bleeding. Review of systems relevant to events:: 05.09.2019: PF ratio reduced this morning however she had been on pressure support CPAP. Became dyspneic with increased work of breathing this morning and transition back to conventional assist control ventilation. She is tolerating diet, making adequate urine and blood pressure has been stable. 05.08.2019: Overall improvement in blood pressure. Sedation is on weaning protocol. She is tolerating tube feeds. No fever. FiO2 now down to 40%. Plateaus acceptable and less than 30. P/F ratio: 184. 150 on 05.07.2019 05.07.2019: Patient's blood pressures have been low normal. Lasix had been discontinued. Review of chest x-ray shows interstitial pattern which has not worsened. Viral and bacteriologic studies still pending no positive results. CRP and ferritin still elevated. Started on heparin drip for background atrial fibrillation. No hemodynamic lability. 05.06.2019: Notable elevation in ferritin and CRP. Chest x-ray done yesterday shows increasing ground-glass opacities distinguished worsening over the past few days. She remains appropriately sedated Viral cultures, Gram stain and respiratory cultures still pending. 05.05.2019: Patient had been downgraded to IMCU status but has had increasing oxygen requirements. Today she is on high flow at 60 L with FiO2 approaching 90%. She endorses dyspnea and does not complain that it is any worse than yesterday. There is been no evidence of bleeding. Reason for ICU Addmission:: Hypoxic respiratory failure - Medications: Vasopressors:: None Sedation:: Propofol Physical Exam Vital Signs: Temp Pulse Resp BP Pulse Ox 98.4 F 80 19 112/68 94 05/09/19 16:00 05/09/19 16:28 05/09/19 16:28 05/09/19 16:00 05/09/19 16:28 Intake & Output 05/08/19 05/09/19 05/10/19 06:59 06:59 06:59 Intake Total 2492 1391 1469 Output Total 1835 2800 1020 Balance 657 -1409 449 Weight 92.2 kg 95.2 kg 95.2 kg Weight/Height Weight 95.2 kg Height 5 ft 5 in General appearance: PRESENT: disheveled, morbidly obese Exam: Elderly, intubated, nontoxic 69-year-old obese female no acute distress Head exam: PRESENT: atraumatic, normocephalic Eye exam: PRESENT: conjunctival injection, conjunctiva pink, PERRLA. ABSENT: nystagmus, scleral icterus Mouth exam: PRESENT: moist, neck supple Teeth exam: PRESENT: edentulous Neck exam: ABSENT: carotid bruit, JVD, lymphadenopathy, thyromegaly Respiratory exam: PRESENT: crackles, tachypnea. ABSENT: accessory muscle use, retraction Cardiovascular exam: PRESENT: RRR, +S1, +S2 Pulses: PRESENT: +1 pedal pulses bilateral GI/Abdominal exam: PRESENT: normal bowel sounds, soft. ABSENT: ascites, distended, guarding, mass, organolmegaly, rebound, tenderness Rectal exam: PRESENT: deferred Gentrourinary exam: PRESENT: indwelling catheter Extremities exam: PRESENT: +1 edema Musculoskeletal exam: ABSENT: deformity, dislocation Neurological exam: PRESENT: altered, motor sensory deficit - Patient appears to be hard of hearing. 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 She does move her hands and arms with noxious stimulus. Her hands and arms do move her personally. She attempts to speak with sedation lowered. Psychiatric exam: PRESENT: agitated Focused psych exam: ABSENT: restlessness Skin exam: PRESENT: dry, intact, normal color, warm. ABSENT: cyanosis, mottled, rash Tubes/Lines: PRESENT: Endotracheal Tube, Arterial Catheter, Other - PICC line, urinary catheter and oral gastric tube Laboratory/Radiographs Laboratory Results: 05/09/19 03:10 05/09/19 03:10 05/09/19 05/09/19 05/09/19 03:10 03:10 03:10 WBC 35.2 H* RBC 3.01 L Hgb 8.0 L Hct 24.9 L MCV 83 MCH 26.5 L MCHC 32.1 RDW 18.3 H Plt Count 301 Seg Neutrophils % Not Reportable Carbonic Acid 1.23 HCO3/H2CO3 Ratio 23:1 ABG pH 7.47 H ABG pCO2 40.8 ABG pO2 68.6 L ABG HCO3 29.0 H ABG O2 Saturation 94.7 ABG Base Excess 5.0 FiO2 40% Sodium 132.5 L Potassium 3.3 L Chloride 95 L Carbon Dioxide 32 H Anion Gap 6 BUN 46 H Creatinine 0.99 Est GFR ( Amer) > 60 Glucose 191 H Calcium 7.3 L Phosphorus 2.6 Magnesium 2.4 H Ferritin C-Reactive Protein 05/09/19 08:20 WBC RBC Hgb Hct MCV MCH MCHC RDW Plt Count Seg Neutrophils % Carbonic Acid HCO3/H2CO3 Ratio ABG pH ABG pCO2 ABG pO2 ABG HCO3 ABG O2 Saturation ABG Base Excess FiO2 Sodium Potassium Chloride Carbon Dioxide Anion Gap BUN Creatinine Est GFR ( Amer) Glucose Calcium Phosphorus Magnesium Ferritin 382.00 H C-Reactive Protein 166.5 H 04/22/19 04/27/19 23:10 04:20 Troponin I < 0.012 NT-Pro-B Natriuret Pep 1520 H 705 H Impressions: Interventional Vascular Procedure 05/01/19 00:00 IMPRESSION: SUCCESSFUL PLACEMENT OF A 5 FR DUAL LUMEN 35 CM PICC IN THE RIGHT BASILIC VEIN. PICC Line Insertion 05/01/19 00:00 IMPRESSION: SUCCESSFUL PLACEMENT OF A 5 FR DUAL LUMEN 35 CM PICC IN THE RIGHT BASILIC VEIN. KUB X-Ray 05/05/19 00:00 IMPRESSION: Enteric tube tip overlies proximal stomach. Chest X-Ray 05/09/19 06:00 IMPRESSION: Bibasilar and peripheral patchy opacities and small bilateral pleural effusions are stable. All labs, radiographs, diagnostic studies and EKGs were personally reviewed: Yes In addition, reports of radiographic and diagnostic studies were read: Yes Assessment and Plan - Diagnosis (1) ARDS (adult respiratory distress syndrome) Is this a current diagnosis for this admission?: Yes Plan: Improving. However pressure support CPAP not tolerated and placed on assist control. (2) Acute respiratory failure with hypoxia and hypercapnia Is this a current diagnosis for this admission?: Yes (3) Anemia, blood loss Is this a current diagnosis for this admission?: Yes (4) COPD exacerbation Is this a current diagnosis for this admission?: Yes (5) Dependence on supplemental oxygen Is this a current diagnosis for this admission?: Yes (6) Leucocytosis Qualifiers: Leukocytosis type: unspecified Qualified Code(s): D72.829 - Elevated white blood cell count, unspecified Is this a current diagnosis for this admission?: Yes Plan: Has history of myelodysplasia with leukocytosis and anemia. Lymphopenic (7) Myelodysplasia (myelodysplastic syndrome) Is this a current diagnosis for this admission?: Yes Plan: Likely the main reason for Hgb drop. No evidence of bleeding. Hgb 7.1 but will transfuse to maintain O2 carrying capacity. (8) Anticoagulated Is this a current diagnosis for this admission?: Yes (9) Chronic atrial fibrillation Is this a current diagnosis for this admission?: Yes Plan Summary: 05.09.2019: Patient has been determined SARS2 COVID 19 negative. I have checked with our micro and viral laboratory and we are still awaiting her viral PCR for other viral etiologies. I had a lengthy discussion with the infectious disease Covidien experts at [facility] to discuss the possible sensitivity issues related to the novel fox RTPCR. Even that the nasopharyngeal swab was done in the midst of her significant illness this is unlikely a false negative. To that end I have lifted the form precaution but have maintain droplet precaution for this patient. Now that we have novel coronavirus negativity, we can now safely obtain CT scan to evaluate her interstitial process of the lung. We will still maintain level of care and allow the lungs to heal. It may be safe to increase steroids but will evaluate after CT scan. Patient has mild pulmonary hypertension by echo however it may be underestimated given her anatomy. May need to consider the use of digoxin and/or sildenafil to help with hypoxia if it continues. Continue supportive care And you nutritional support Attempt to wean in the next 24 hours Follow-up on viral studies Stop antibiotics if viral studies are positive and or microbiologic studies are negative. Even single organ dysfunction she may be a candidate for LTAC 05.08.2019: Patient has improved steadily but has not yet ready for liberation from mechanical ventilation. We will continue on pressure support CPAP and follow parameters to determine suitability. We will be very conservative with liberation until week know the results of the viral PCR testing which has been done. Continue supportive respiratory care and allow for diaphragmatic utilization to prevent prolonged respiratory failure Patient's PF ratio has improved as anticipated and we are encouraged that she appears to be improving overall. Will follow chest x-ray in the morning but not order daily x-rays. From a cardiac standpoint she remains in a paced rhythm at 80. Evaluation of the pacemaker is still pending to assure stability. We are waiting for negative confirmation for CO VID19 Hematologically patient still has leukocytosis consistent with myelodysplastic disease. 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 She will need further work-up as an outpatient. Her white blood cell count is expectedly higher after starting physiologically based steroid treatment. She does have lymphopenia and her bandemia has improved. Her anemia is not worse and does not require treatment. Her TSH is notably low I have stopped her current Synthroid dose and have changed her to a lower dose to be started in 3 to 4 days. Her glucose levels are slightly elevated probably related to steroids and have started a modified subcutaneous insulin protocol. She currently is on physiologically based steroids secondary to the concurrent use of chronic prednisone. She is also on Midodrine to maintain adequate blood pressures. We will continue to monitor her response to nutrition. I have asked for decrease in sedation however we need to be vigilant for agitation and unplanned extubation. Given the fact the patient is in a negative airflow room and there is no staff immediately available in the room sedation is somewhat essential to prevent inadvertent extubation. Will have to balance the risk of critical illness muscle deconditioning supposed to the significant risk of self extubation. She is on heparin for atrial fibrillation and has had no bleeding events. Her PTT was slightly elevated and we have adjusted her dosing. We will continue supportive care. Phone calls to the [facility] have been made to determine her Covid- 19 status and these results are still pending. 05.07.2019: Patient remains relatively non-labile as far as her respiratory status. She meets Dwight criteria for moderate ARDS still awaiting PCR results for viral studies including SARS2 CO VID/19 Will continue to attempt to wean patient. Waiting negative COVID studies as well so as to not complicate possible need for noninvasive ventilation. The need to monitor peak and plateau pressures as well as suitability for transition to pressure support CPAP. I am hopeful that the improvement in her P/F ratio heralds the beginning of resolution of her acute pneumonitis. From an infectious disease standpoint the patient is still on broad-spectrum antibiotics including doxycycline. Continue treatment for influenza and await PCR on viral specimens as well as health department results for SARS2/COVID19. Continue patient in negative airflow room with protective personal wear for all health care providers (HCP). Continue to educate HCP's on guidelines and appropriate interactions with patient. Patient's blood pressure has been low normal and I am concerned that she may be developing adrenal insufficiency. In studies done in the past patients who have been on steroids and or elderly will develop some degree of relative adrenal insufficiency. Have been reticent to begin any steroids in light of the preliminary reports which suggest morbidity and mortality are reduced with its use. All the studies have not been investigated with robust cohort-RCT destinations it remains prudent to limit its use. That being said I have introduced a more physiologic Solu-Cortef dose to offset any adrenal insufficiency which may occur. Continue to follow CRP and ferritin as these are the only markers which may offer some evidence for improvement. We currently do not have procalcitonin at this hospital to allow for discontinuation of antibiotics. Bronchoscopy would be ill advised at this point until we are assured that COVID-19 has been ruled out. From a cardiac standpoint she has had no further artifactual electrical abnormalities. Have started on midodrine to mitigate any hypotension which is most likely related to sedation and her infectious state. Still with holding diuretic as well. From a hematologic standpoint patient has lymphopenia without leukopenia. She has a known history of myelodysplastic disease. Her hemoglobin hematocrit levels do not require any treatment. Continue supportive care. B12 levels are appropriate and continue current care. From an endocrine standpoint we have begun more physiologic dose Solu-Cortef. Will watch for glucose elevation. From a renal standpoint her creatinine is slightly elevated today which may be secondary to the diuresis over the last 24 hours. This has been discontinued as of yesterday. She is on vancomycin and will need to continue to monitor. Procalcitonin would be very helpful in this situation so as to mitigate the potential harmful effects of antibiotics. Will follow cultures and if negative from a bacteriologic standpoint tomorrow, will discontinue vancomycin. From a metabolic standpoint we will continue to monitor patient's electrolytes and volume status as well as pH. From a GI and alimentary tract perspective continue to monitor LFTs. She is tolerating her tube feeds. Will discuss with nutrition to assure that we are feeding appropriately Mental alert neurological standpoint patient is sedated and will try to begin weaning for appropriate RASS. There is to be no focal neurological deficits but of concern because of her hypoxia and use of heparin. We will continue supportive care with vigilant monitoring. Family not available for update but will attempt to reach them by phone. 05.06.2019: Patient's respiratory status has improved however she is still dependent on mechanical ventilation. We have reduced her FiO2 to 50% but have maintained her PEEP at 10. Even the complexity of the negative airflow room and the inability to introduce portable x-ray equipment, I have not ordered chest x-ray for today. We will order intermittently and have developed a plan to protect any aerosolized processes. Still awaiting confirmative viral and bacteriologic studies. Peak and plateau pressures are not elevated. P/F ratio slightly lower today but overall PO2 of 81 on 60% is acceptable. Discontinued steroids which is notably cause worsening mortality and morbidity if this is SARS2/CO VID19. From an infectious disease standpoint the patient has been covered with broad- spectrum antibiotics except for a azithromycin. Given her con commitment use of Celexa and previous cardiac history I have held this particular antibiotic. We will continue to monitor however I will place her on doxycycline until specimens are returned. We will continue treatment for influenza and await health department results for SARS2/COVID19. Continue patient in negative airflow room with protective personal wear for all health care providers (HCP's). From a cardiac standpoint the patient had what appeared to be artifactual changes on monitor not related to hypotension or changes in arterial waveform. The monitors and wires connected have been changed to assure that this is not equipment dysfunction. I have ordered interrogation of her pacemaker as well. Currently she is in a paced rhythm. He does have a history of atrial fibrillation and flutter and her Eliquis has been held since yesterday with the plan for implementation of standardized heparin for A. fib. This has been initiated this morning. From a hematologic standpoint patient does have a history of myelodysplastic syndrome and review of consultations and labs was undertaken. She has a history of leukocytosis which has made the consideration for the Covid-19 somewhat problematic. She has a mild degree of anemia related to this but nothing that requires treatment at this point. Given concern for infectious component discontinued iron therapy. From an endocrine standpoint I have ordered TSH. We will continue her Synthroid in order to support metabolic processes. Given her frequent use of steroids reconnaissance for adrenal insufficiency will need to be maintained. Glucose ranges are acceptable. From a renal standpoint we have continue the patient on Lasix twice daily to reduce the amount of interstitial fluid in the lung. Ultrasound of the IVC lee ws it to be well dilated and she may require further diuresis. From a metabolic standpoint patient has hyperferritinemia and elevated CRP which are consistent with inflammatory pneumonitis diseases. We will continue to monitor GI standpoint we will start the patient on nutrition and have limited any IV fluids parenterally. Vigilance for LFT elevation in the face of what could potentially be a significant viral illness is being maintained. From a neurologic standpoint patient is suitably sedated and appropriate for the situation. She is unable to be liberated from the ventilator however we will continue to monitor her neurologic and respiratory status. 05.05.2019: Patient's respiratory status has worsened. She is requiring higher oxygen concentration and flow. Her chest x-ray shows an evolving interstitial pattern which was not present on admission. This type of presentation can be seen in influenza and other viral related pneumonitis however, given the current state of SARS2 CoViD-19 and its known bi- modal and incubation period make this a very distinct clinical presentation and it is possible and conceivable that this patient may have this. To that end, I have instituted precautionary measures including re-testing for influenza and have spoken to the [facility] who have given permission to check for the above. Also discussed with our infectious disease department. We have preemptively shut the patient's room off and will be transferring her to a negative airflow room while she has a mask. Her respiratory status is such that she is going to require intubation and we will limit HCP's exposure. Instructed all staff to use PPE and 95 mask given the need for intubation as well as eye protective gear. We will check a nasopharyngeal swab for a routine viral panel and for SARS to COViD-19. Currently it is not recommended to perform bronchoscopy. I have increased the patient's steroids but will discontinue them until this unique virus has been ruled out. Clinically steroids have been shown to worsen outcomes and potentially contribute to mortality. I have placed her on Tamiflu until influenza PCR has returned. I did discuss with her family and updated them on her respiratory status and they informed me that various family members have had influenza a and B. In addition, a family member traveled to [place]. There is been no other known travel related connections. Patient's chest x-ray and oxygen requirements are consistent with early ARDS. We will broaden out antibiotic until we can obtain viral information. Regarding her respiratory status she will be placed on mechanical ventilation with obvious protection provided. Follow routine ARDS treatment guidelines. Critical Time Critical Time (minutes): 50 Level of Care: ICU Anticipated discharge: Other - LTAC Within: within 48 hours -: 1. The care of a critical patient is a dynamic process. This note is a fraud representative synopsis but static in nature. The timeframe for treatments given in order is not necessarily the actual time these treatments may have been done. 2. This patient requires critical care secondary to ongoing requirements for therapy not offered or safe outside the critical care environment. Transfer to a lower level of care will result in altered life or limb morbidity and mortality. 3. Multidisciplinary rounds completed. 4. ABCDE bundle addressed.
[2019-05-10] MEDS: INSULIN REG, HUMAN 100 UNIT/ML 3 ML VIAL (PYX) SUBCUT SCH ×5 (01:53→23:27)
[2019-05-10] MEDS: FENTANYL CITRATE INJ/PF 100 MCG/2 ML AMPUL IV PRN ×3 (01:53→20:34)
[2019-05-10] MEDS: PROPOFOL 1,000 MG/100 ML INFUS..BTL IV PRN ×3 (04:40→16:24)
--- NOTE | 2019-05-10 04:59 | RADIOLOGY REPORT (SQ) ---
CLINICAL HISTORY: Interstitial pneumonia. COVID 19 negative COMPARISON: None. TECHNIQUE: CT CHEST WITH IV CONTRAST on 05/10/2019 12:00 AM CDT. MIPS reconstructions were generated. This exam was performed according to our departmental dose-optimization program, which includes automated exposure control, adjustment of the mA and/or kV according to patient size and/or use of iterative reconstruction technique. MIP images were generated. FINDINGS: Thoracic aorta is normal in course and caliber without aneurysm or dissection. Pulmonary arteries are adequately opacified without acute or chronic filling defects. The heart is enlarged. Left dual-chamber pacemaker is present. There is no pericardial effusion. Intrathoracic lymph nodes are not enlarged. Endotracheal tube tip is in the midtrachea. NG tube tip is in the stomach. There are small pleural effusions. Central airways are patent. There is upper lung centrilobular emphysema. There is extensive right basilar airspace disease with mild airspace disease scattered throughout both lungs. There are no acute abnormalities within the limited images of the upper abdomen. There are no acute osseous findings. No suspicious bony lesions. IMPRESSION: Cardiomegaly with pleural effusions and bilateral pneumonia superimposed on emphysema.
[2019-05-10] MEDS: ROPINIROLE HCL 2 MG TABLET NG SCH ×3 (05:41→21:53)
[2019-05-10] MEDS: HYDROCORTISONE SOD SUCCINATE INJ/PF 100 MG/2 ML SDV IV SCH ×3 (05:41→21:53)
[2019-05-10] MEDS: PANTOPRAZOLE SODIUM 40 MG PACKET.DR NG SCH (05:41)
[2019-05-10] MEDS: VANCOMYCIN HCL 750 MG in DEXTROSE 5%-WATER 250 ML IV SCH ×2 (05:42→18:18)
[2019-05-10] MEDS: MINERAL OIL/PETROLATUM,WHITE OPH OINT 3.5 GM OU SCH ×3 (05:42→21:54)
[2019-05-10 06:29] LABS: ARTERIAL BLOOD BASE EXCESS 4.7 mmol/L; ARTERIAL BLOOD H2CO3 1.35 mmol/L (1.05-1.35); ARTERIAL BLOOD HCO3 29.4 mmol/L (20-24); ARTERIAL BLOOD O2 SATURATION 94.4 % (94-98); ARTERIAL BLOOD PCO2 44.7 mmHg (35-45); ARTERIAL BLOOD PH 7.44 (7.35-7.45); ARTERIAL BLOOD PO2 69.6 mmHg (80-100); ARTERIAL BLOOD TOTAL CO2 30.8 mmol/L (21-25)
[2019-05-10 06:31] LABS: ARTERIAL BLOOD FIO2 35%
[2019-05-10 06:32] LABS: HEMATOCRIT 24.3 % (36.0-47.0); MEAN CORPUSCULAR HEMOGLOBIN 25.8 pg (27.0-33.4); MEAN CORPUSCULAR HGB CONC 31.2 g/dL (32.0-36.0); MEAN CORPUSCULAR VOLUME 83 fl (80-97); PLATELET COUNT 306 10^3/uL (150-450); RED BLOOD COUNT 2.94 10^6/uL (3.72-5.28); RED CELL DISTRIBUTION WIDTH 18.4 % (11.5-14.0)
[2019-05-10 06:55] LABS: HEMOGLOBIN 7.6 g/dL (12.0-15.5); WHITE BLOOD COUNT 30.2 10^3/uL (4.0-10.5)
[2019-05-10 06:59] LABS: ABSOLUTE LYMPHOCYTES# (MANUAL) 1.5 10^3/uL (0.5-4.7); ABSOLUTE MONOCYTES # (MANUAL) 2.1 10^3/uL (0.1-1.4); BAND NEUTROPHILS % (MANUAL) 1 % (3-5); BASOPHILS % (MANUAL) 0 % (0-2); EOSINOPHILS % (MANUAL) 0 % (0-6); LYMPHOCYTES % (MANUAL) 5 % (13-45); MONOCYTES % (MANUAL) 7 % (3-13); SEGMENTED NEUTROPHILS % (MAN) 87 % (42-78); TOTAL CELLS COUNTED 100
[2019-05-10 07:01] LABS: ANISOCYTOSIS 1+; POLYCHROMASIA SLIGHT; TEAR DROP CELLS SLIGHT
[2019-05-10 07:02] LABS: PLATELET COMMENT ADEQUATE
[2019-05-10 07:27] LABS: ANION GAP 8 (5-19); BLOOD UREA NITROGEN 44 mg/dL (7-20); CALCIUM 7.4 mg/dL (8.4-10.2); CARBON DIOXIDE 31 mmol/L (22-30); CHLORIDE 95 mmol/L (98-107); GLUCOSE 134 mg/dL (75-110); PHOSPHORUS 4.5 mg/dL (2.5-4.5); POTASSIUM 3.8 mmol/L (3.6-5.0)
--- NOTE | 2019-05-10 08:14 | RADIOLOGY REPORT (SQ) ---
EXAM DESCRIPTION: CHEST SINGLE VIEW COMPLETED DATE/TIME: 05/10/2019 5:53 am REASON FOR STUDY: atypical pneumonia COMPARISON: 05/09/2019 EXAM PARAMETERS: NUMBER OF VIEWS: One view. TECHNIQUE: Single frontal radiographic view of the chest acquired. RADIATION DOSE: NA LIMITATIONS: None. FINDINGS: LUNGS AND PLEURA: Persistent patchy areas of consolidation in the periphery of the right m id to lower lung and left lung base. Lungs are hyperinflated. Probable small right effusion. No pn eumothorax. MEDIASTINUM AND HILAR STRUCTURES: No masses. Contour normal. HEART AND VASCULAR STRUCTURES: Heart normal in size. Normal vasculature. BONES: No acute findings. HARDWARE: Endotracheal tube in the midthoracic trachea unchanged. Esophagogastric tube tip is below the diaphragm out of the field of view. OTHER: No other significant finding. IMPRESSION: Persistent bilateral patchy peripheral opacities not significantly changed. TECHNICAL DOCUMENTATION: JOB ID: [id number] 2010 [employer]- All Rights Reserved Reading location - IP/workstation name: [email or web address]
[2019-05-10] MEDS: IPRATROPIUM/ALBUTEROL 0.5-2.5 MG/3 ML AMPUL NEB SCH ×4 (08:35→21:12)
[2019-05-10 08:37] LABS: RES PRO RESPIR SYNCYTIAL VIRUS Not Detected (Not Detect); RES PRO RHINOVIRUS/ENTEROVIRUS Not Detected (Not Detect); RESP PRO CHLAMYDOPHILA PNEUMON Not Detected (Not Detect); RESP PRO INFLUENZA A/H1-2009 Detected (Not Detect); RESP PROF BORDETELLA PERTUSSIS Not Detected (Not Detect); RESP PROF CORONAVIRUS 229E Not Detected (Not Detect); RESP PROF CORONAVIRUS HKU1 Not Detected (Not Detect); RESP PROF CORONAVIRUS NL63 Not Detected (Not Detect); RESP PROF CORONAVIRUS OC43 Not Detected (Not Detect); RESP PROF INFLUENZA A/H1 Not Detected (Not Detect); RESP PROF INFLUENZA A/H3 Not Detected (Not Detect); RESP PROF METAPNEUMOVIRUS Not Detected (Not Detect); RESP PROF PARAINFLUENZA 1 Not Detected (Not Detect); RESP PROF PARAINFLUENZA 2 Not Detected (Not Detect); RESP PROF PARAINFLUENZA 3 Not Detected (Not Detect); RESP PROF PARAINFLUENZA 4 Not Detected (Not Detect); RESPIRATORY PROF INFLUENZA A Detected (Not Detect); RESPIRATORY PROF INFLUENZA B Not Detected (Not Detect)
[2019-05-10 09:06] LABS: RESP PRO MYCOPLASMA PNEUMONIAE Not Detected (Not Detect)
[2019-05-10] MEDS: ASPIRIN 81 MG TABLET, CHEWABLE NG SCH (10:05)
[2019-05-10] MEDS: MIDODRINE HCL 5 MG TABLET PO SCH ×3 (10:05→18:08)
[2019-05-10] MEDS: ROFLUMILAST 500 MCG TABLET NG SCH (10:05)
[2019-05-10] MEDS: BUSPIRONE HCL 10 MG TABLET NG SCH ×2 (10:06→21:53)
[2019-05-10] MEDS: CITALOPRAM HYDROBROMIDE 20 MG TABLET NG SCH (10:06)
[2019-05-10] MEDS: OSELTAMIVIR PHOSPHATE 75 MG CAPSULE NG SCH ×2 (10:06→18:18)
[2019-05-10] MEDS: ATORVASTATIN CALCIUM 20 MG TABLET NG SCH (10:06)
[2019-05-10] MEDS: CYANOCOBALAMIN (VITAMIN B-12) 1,000 MCG TABLET NG SCH (10:07)
[2019-05-10] MEDS: NORMAL SALINE 10 ML SDV (SCHEDULED) IV SCH ×2 (10:07→21:54)
[2019-05-10] MEDS: CEFEPIME 1 GM/D5W RTU 1 GM/50 ML RTUPB IV SCH ×2 (10:07→21:54)
[2019-05-10] MEDS: DOXYCYCLINE HYCLATE 100 MG in DEXTROSE 5%-WATER 250 ML IV SCH ×2 (11:50→23:18)
[2019-05-10] MEDS: APIXABAN 5 MG TABLET PO SCH (18:18)
[2019-05-10] MEDS ORDERED: DEXMEDETOMIDINE IN 0.9 % NACL 400 MCG/100 ML RTUPB IV ONE (21:46)
[2019-05-10] MEDS: DEXMEDETOMIDINE IN 0.9 % NACL 400 MCG/100 ML RTUPB IV PRN (22:06)
[2019-05-11] MEDS: DEXMEDETOMIDINE IN 0.9 % NACL 400 MCG/100 ML RTUPB IV PRN ×8 (00:47→20:38)
[2019-05-11] MEDS: FENTANYL CITRATE INJ/PF 100 MCG/2 ML AMPUL IV PRN ×4 (02:21→20:37)
[2019-05-11 03:32] LABS: HEMATOCRIT 26.8 % (36.0-47.0); HEMOGLOBIN 8.4 g/dL (12.0-15.5); MEAN CORPUSCULAR HGB CONC 31.4 g/dL (32.0-36.0); MEAN CORPUSCULAR VOLUME 83 fl (80-97); PLATELET COUNT 320 10^3/uL (150-450); RED BLOOD COUNT 3.23 10^6/uL (3.72-5.28); RED CELL DISTRIBUTION WIDTH 18.4 % (11.5-14.0); WHITE BLOOD COUNT 24.2 10^3/uL (4.0-10.5)
[2019-05-11 03:46] LABS: ANION GAP 8 (5-19); BLOOD UREA NITROGEN 42 mg/dL (7-20); CALCIUM 7.9 mg/dL (8.4-10.2); CARBON DIOXIDE 30 mmol/L (22-30); CHLORIDE 97 mmol/L (98-107); GLUCOSE 191 mg/dL (75-110); POTASSIUM 4.6 mmol/L (3.6-5.0); TRIGLYCERIDES 101 mg/dL (<150)
[2019-05-11 03:53] LABS: ABSOLUTE LYMPHOCYTES# (MANUAL) 0.5 10^3/uL (0.5-4.7); ABSOLUTE MONOCYTES # (MANUAL) 0.7 10^3/uL (0.1-1.4); BASOPHILS % (MANUAL) 0 % (0-2); EOSINOPHILS % (MANUAL) 0 % (0-6); LYMPHOCYTES % (MANUAL) 2 % (13-45); MONOCYTES % (MANUAL) 3 % (3-13); SEGMENTED NEUTROPHILS % (MAN) 95 % (42-78); TOTAL CELLS COUNTED 100
[2019-05-11 03:54] LABS: ANISOCYTOSIS 1+; HYPOCHROMASIA SLIGHT; PLATELET COMMENT ADEQUATE
[2019-05-11 03:56] LABS: OVALOCYTES SLIGHT
[2019-05-11 03:57] LABS: TEAR DROP CELLS SLIGHT
[2019-05-11 03:58] LABS: TOXIC GRANULATION SLIGHT
[2019-05-11] MEDS: INSULIN REG, HUMAN 100 UNIT/ML 3 ML VIAL (PYX) SUBCUT SCH ×3 (05:00→17:41)
[2019-05-11] MEDS: ROPINIROLE HCL 2 MG TABLET NG SCH ×3 (05:01→21:28)
[2019-05-11] MEDS: PANTOPRAZOLE SODIUM 40 MG PACKET.DR NG SCH (05:01)
[2019-05-11] MEDS: HYDROCORTISONE SOD SUCCINATE INJ/PF 100 MG/2 ML SDV IV SCH ×3 (05:01→21:27)
[2019-05-11] MEDS: MINERAL OIL/PETROLATUM,WHITE OPH OINT 3.5 GM OU SCH ×3 (05:01→21:28)
[2019-05-11] MEDS: VANCOMYCIN HCL 750 MG in DEXTROSE 5%-WATER 250 ML IV SCH ×2 (05:01→17:42)
[2019-05-11] MEDS: LEVOTHYROXINE SODIUM 0.05 MG TABLET PO SCH (05:24)
[2019-05-11 06:11] LABS: APPEARANCE,URINE CLOUDY; BILIRUBIN,URINE NEGATIVE (NEGATIVE); COLOR,URINE YELLOW; GLUCOSE, URINE NEGATIVE (NEGATIVE); KETONES,URINE NEGATIVE (NEGATIVE); LEUKOCYTE ESTERASE,URINE NEGATIVE (NEGATIVE); NITRITE,URINE NEGATIVE (NEGATIVE); PROTEIN,URINE 30 mg/dL (NEGATIVE); URINE SPECIFIC GRAVITY 1.023; UROBILINOGEN,URINE NEGATIVE mg/dL (<2.0)
[2019-05-11] MEDS: IPRATROPIUM/ALBUTEROL 0.5-2.5 MG/3 ML AMPUL NEB SCH ×4 (08:02→19:41)
[2019-05-11] MEDS: CYANOCOBALAMIN (VITAMIN B-12) 1,000 MCG TABLET NG SCH (09:29)
[2019-05-11] MEDS: CITALOPRAM HYDROBROMIDE 20 MG TABLET NG SCH (09:29)
[2019-05-11] MEDS: CEFEPIME 1 GM/D5W RTU 1 GM/50 ML RTUPB IV SCH ×2 (09:29→21:28)
[2019-05-11] MEDS: APIXABAN 5 MG TABLET PO SCH ×2 (09:29→17:41)
[2019-05-11] MEDS: ROFLUMILAST 500 MCG TABLET NG SCH (09:30)
[2019-05-11] MEDS: NORMAL SALINE 10 ML SDV (SCHEDULED) IV SCH ×2 (09:30→21:28)
[2019-05-11] MEDS: ASPIRIN 81 MG TABLET, CHEWABLE NG SCH (09:30)
[2019-05-11] MEDS: ATORVASTATIN CALCIUM 20 MG TABLET NG SCH (09:30)
[2019-05-11] MEDS: BUSPIRONE HCL 10 MG TABLET NG SCH ×2 (09:30→21:27)
[2019-05-11] MEDS: MIDODRINE HCL 5 MG TABLET PO SCH ×3 (09:30→17:41)
[2019-05-11] MEDS: OSELTAMIVIR PHOSPHATE 75 MG CAPSULE NG SCH ×2 (09:30→17:41)
--- NOTE | 2019-05-11 10:17 | RADIOLOGY REPORT (SQ) ---
EXAM DESCRIPTION: CHEST SINGLE VIEW COMPLETED DATE/TIME: 05/11/2019 7:25 am REASON FOR STUDY: pneumonia with new onset fever; r/o new infiltrate COMPARISON: 05/10/2019 NUMBER OF VIEWS: One view. TECHNIQUE: Single frontal radiographic image of the chest acquired. LIMITATIONS: None. FINDINGS: LUNGS AND PLEURA: Bilateral airspace disease with more confluent density in the right lowe r lobe not significantly changed. No pneumothorax. There is a background chronic interstitial lung disease. MEDIASTINUM AND HEART: Stable heart size and mediastinal structures. SUPPORT DEVICES: Appropriate location without change. BONY STRUCTURES: No acute findings. HARDWARE: None. OTHER: No other significant finding. IMPRESSION: No significant change. Reading location - IP/workstation name: [email or web address]
[2019-05-11] MEDS: ACETAMINOPHEN 325 MG TABLET PO PRN ×2 (10:27→17:41)
--- NOTE | 2019-05-11 10:28 | PDOC CRITICAL CARE PROG REPORT ---
General Date:: 05/11/19 ICU Day:: 10 Ventilator Day:: 6 Hospital Day:: 18 Resuscitation Status: Full Code Medical Power of Hazmat Tanker Driver: Sons Events in the past 12 to 24 Hours:: Covid-19 negative. Flu A positive. Review of systems relevant to events:: Pulmonary Reason for ICU Addmission:: Hypoxic respiratory failure - Medications: Medications reviewed and adjusted accordingly: Yes Vasopressors:: None Sedation:: Precedex Physical Exam Vital Signs: Temp Pulse Resp BP Pulse Ox 102.9 F H 80 26 H 132/74 H 95 05/11/19 08:00 05/11/19 08:42 05/11/19 08:00 05/11/19 08:00 05/11/19 08:00 Intake & Output 05/10/19 05/11/19 05/12/19 06:59 06:59 06:59 Intake Total 2910 1870 100 Output Total 2255 2470 145 Balance 655 -600 -45 Weight 93 kg 93.4 kg Weight/Height Weight 93.4 kg Height 5 ft 5 in General appearance: PRESENT: no acute distress, obese, other - Sedated Head exam: PRESENT: atraumatic, normocephalic Eye exam: PRESENT: conjunctiva pink, EOMI, PERRLA. ABSENT: scleral icterus Ear exam: PRESENT: normal external ear exam Mouth exam: PRESENT: moist, tongue midline Respiratory exam: PRESENT: rhonchi, tachypnea Cardiovascular exam: PRESENT: RRR. ABSENT: diastolic murmur, rubs, systolic murmur Pulses: PRESENT: normal dorsalis pedis pul Vascular exam: PRESENT: normal capillary refill GI/Abdominal exam: PRESENT: normal bowel sounds, soft. ABSENT: distended, guarding, mass, organolmegaly, rebound, tenderness Rectal exam: PRESENT: deferred Gentrourinary exam: PRESENT: indwelling catheter Extremities exam: PRESENT: full ROM. ABSENT: calf tenderness, clubbing, pedal edema Neurological exam: PRESENT: altered, CN II-XII grossly intact, other - Sedated. Skin exam: PRESENT: dry, intact, warm. ABSENT: cyanosis, rash Tubes/Lines: PRESENT: Endotracheal Tube, Central Line, Arterial Catheter, Nasogastic Tube Laboratory/Radiographs Laboratory Results: 05/11/19 03:22 05/11/19 03:22 03/05/11/19 05/11/19 03:22 03:22 05:39 WBC 24.2 H RBC 3.23 L Hgb 8.4 L Hct 26.8 L MCV 83 MCH 26.0 L MCHC 31.4 L RDW 18.4 H Plt Count 320 Seg Neutrophils % Not Reportable Sodium 135.3 L Potassium 4.6 Chloride 97 L Carbon Dioxide 30 Anion Gap 8 BUN 42 H Creatinine 0.94 Est GFR ( Amer) > 60 Glucose 191 H Calcium 7.9 L Triglycerides 101 Urine Color YELLOW Urine Appearance CLOUDY Urine pH 5.0 Ur Specific [place] 1.023 Urine Protein 30 H Urine Glucose (UA) NEGATIVE Urine Ketones NEGATIVE Urine Blood NEGATIVE Urine Nitrite NEGATIVE Ur Leukocyte Esterase NEGATIVE Urine WBC (Auto) 4 Urine RBC (Auto) 4 04/22/19 04/27/19 23:10 04:20 Troponin I < 0.012 NT-Pro-B Natriuret Pep 1520 H 705 H Impressions: Interventional Vascular Procedure 05/01/19 00:00 IMPRESSION: SUCCESSFUL PLACEMENT OF A 5 FR DUAL LUMEN 35 CM PICC IN THE RIGHT BASILIC VEIN. PICC Line Insertion 05/01/19 00:00 IMPRESSION: SUCCESSFUL PLACEMENT OF A 5 FR DUAL LUMEN 35 CM PICC IN THE RIGHT BASILIC VEIN. KUB X-Ray 05/05/19 00:00 IMPRESSION: Enteric tube tip overlies proximal stomach. Chest CT 05/10/19 00:00 IMPRESSION: Cardiomegaly with pleural effusions and bilateral pneumonia superimposed on emphysema. All labs, radiographs, diagnostic studies and EKGs were personally reviewed: Yes In addition, reports of radiographic and diagnostic studies were read: Yes Assessment and Plan - Diagnosis (1) COPD (chronic obstructive pulmonary disease) Qualifiers: COPD type: COPD with acute exacerbation Qualified Code(s): J44.1 - Chronic obstructive pulmonary disease with (acute) exacerbation Is this a current diagnosis for this admission?: Yes Plan: This is made worse by the presence of Flu-A. On tamiflu. Still spiking fevers to 102. Multiple potential sites. (2) Acute on chronic diastolic (congestive) heart failure Is this a current diagnosis for this admission?: Yes Plan: Resolved (3) Longstanding persistent atrial fibrillation Is this a current diagnosis for this admission?: Yes Plan: Controlled rate. (4) Acute and chronic respiratory failure with hypoxia Is this a current diagnosis for this admission?: Yes Plan: Still in need on vent support. (5) HTN (hypertension) Qualifiers: Hypertension type: essential hypertension Qualified Code(s): I10 - Essential (primary) hypertension Is this a current diagnosis for this admission?: Yes Plan: Controlled (6) Myelodysplasia (myelodysplastic syndrome) Is this a current diagnosis for this admission?: Yes Plan: Not currently active. (7) Leukocytosis Qualifiers: Leukocytosis type: unspecified Qualified Code(s): D72.829 - Elevated white blood cell count, unspecified Is this a current diagnosis for this admission?: Yes Plan: Coming down to 24K. Keep on present antibiotics. (8) Fever Qualifiers: Fever type: unspecified Qualified Code(s): R50.9 - Fever, unspecified Is this a current diagnosis for this admission?: Yes Plan: Multiple sites. The PICC line is one and the possibility of a VAP is another given her COPD and influenza. Keep antibiotics for now. Plan Summary: Await formal reading of today's CXR essecially in JIM. COntinue vent support and antibiotics. Critical Time Critical Time (minutes): 35 Level of Care: ICU Anticipated discharge: SNF Within: Other -: 1. The care of a critical patient is a dynamic process. This note is a artist's representative synopsis but static in nature. The timeframe for treatments given in order is not necessarily the actual time these treatments may have been done. 2. This patient requires critical care secondary to ongoing requirements for therapy not offered or safe outside the critical care environment. Transfer to a lower level of care will result in altered life or limb morbidity and mortality. 3. Multidisciplinary rounds completed. 4. ABCDE bundle addressed.
[2019-05-11] MEDS: DOXYCYCLINE HYCLATE 100 MG in DEXTROSE 5%-WATER 250 ML IV SCH ×2 (11:29→22:09)
[2019-05-11] MEDS ORDERED: FENTANYL CITRATE INJ/PF 100 MCG/2 ML AMPUL IV PRN (17:14)
[2019-05-11] MEDS: PROPOFOL 1,000 MG/100 ML INFUS..BTL IV PRN (20:53)
[2019-05-11] MEDS ORDERED: PROPOFOL 1,000 MG/100 ML INFUS..BTL IV ONE (20:53)
[2019-05-11] MEDS ORDERED: ACETAMINOPHEN 1,000 MG/100 ML RTUPB IV ONE (22:00)
[2019-05-11] MEDS: MELATONIN 3 MG TABLET NG SCH (23:17)
[2019-05-12] MEDS ORDERED: INSULIN REG, HUMAN 100 UNIT/ML 3 ML VIAL (PYX) SUBCUT SCH
[2019-05-12] MEDS: FENTANYL CITRATE INJ/PF 100 MCG/2 ML AMPUL IV PRN ×2 (03:28→14:41)
[2019-05-12] MEDS: PROPOFOL 1,000 MG/100 ML INFUS..BTL IV PRN ×3 (03:28→17:21)
[2019-05-12] MEDS: INSULIN REG, HUMAN 100 UNIT/ML 3 ML VIAL (PYX) SUBCUT SCH ×6 (03:29→21:38)
[2019-05-12] MEDS: LEVOTHYROXINE SODIUM 0.05 MG TABLET PO SCH (05:11)
[2019-05-12] MEDS: PANTOPRAZOLE SODIUM 40 MG PACKET.DR NG SCH (05:11)
[2019-05-12] MEDS: ROPINIROLE HCL 2 MG TABLET NG SCH ×3 (05:11→21:47)
[2019-05-12] MEDS: HYDROCORTISONE SOD SUCCINATE INJ/PF 100 MG/2 ML SDV IV SCH ×3 (05:11→21:46)
[2019-05-12] MEDS: VANCOMYCIN HCL 750 MG in DEXTROSE 5%-WATER 250 ML IV SCH (05:12)
[2019-05-12] MEDS: MINERAL OIL/PETROLATUM,WHITE OPH OINT 3.5 GM OU SCH ×3 (05:16→21:48)
[2019-05-12 05:20] LABS: HEMATOCRIT 24.7 % (36.0-47.0); MEAN CORPUSCULAR HEMOGLOBIN 26.3 pg (27.0-33.4); MEAN CORPUSCULAR HGB CONC 31.8 g/dL (32.0-36.0); MEAN CORPUSCULAR VOLUME 83 fl (80-97); PLATELET COUNT 266 10^3/uL (150-450); RED BLOOD COUNT 2.98 10^6/uL (3.72-5.28); RED CELL DISTRIBUTION WIDTH 17.9 % (11.5-14.0); WHITE BLOOD COUNT 21.4 10^3/uL (4.0-10.5)
[2019-05-12 05:28] LABS: ANION GAP 7 (5-19); BLOOD UREA NITROGEN 41 mg/dL (7-20); CALCIUM 7.8 mg/dL (8.4-10.2); CARBON DIOXIDE 29 mmol/L (22-30); CHLORIDE 98 mmol/L (98-107); GLUCOSE 167 mg/dL (75-110); POTASSIUM 3.7 mmol/L (3.6-5.0)
[2019-05-12 05:32] LABS: VANCOMYCIN,TROUGH 20.7 ug/mL (5.0-20.0)
[2019-05-12 06:02] LABS: ABSOLUTE LYMPHOCYTES# (MANUAL) 1.1 10^3/uL (0.5-4.7); ABSOLUTE MONOCYTES # (MANUAL) 0.2 10^3/uL (0.1-1.4); BASOPHILS % (MANUAL) 0 % (0-2); EOSINOPHILS % (MANUAL) 0 % (0-6); LYMPHOCYTES % (MANUAL) 5 % (13-45); MONOCYTES % (MANUAL) 1 % (3-13); SEGMENTED NEUTROPHILS % (MAN) 94 % (42-78); TOTAL CELLS COUNTED 100
[2019-05-12 06:03] LABS: HYPOCHROMASIA 1+; OVALOCYTES SLIGHT; POIKILOCYTOSIS SLIGHT; POLYCHROMASIA SLIGHT; TOXIC GRANULATION SLIGHT
[2019-05-12 06:04] LABS: PLATELET COMMENT ADEQUATE
[2019-05-12 06:05] LABS: HEMOGLOBIN 7.8 g/dL (12.0-15.5)
[2019-05-12] MEDS: IPRATROPIUM/ALBUTEROL 0.5-2.5 MG/3 ML AMPUL NEB SCH ×4 (07:58→19:27)
--- NOTE | 2019-05-12 09:09 | PDOC CRITICAL CARE PROG REPORT ---
General Date:: 05/12/19 ICU Day:: 9 Ventilator Day:: 7 Resuscitation Status: Full Code Medical Power of Catalogue And Special Products Manager: Sons Events in the past 12 to 24 Hours:: Fever down. Less ronchorous Review of systems relevant to events:: Respiratory. Neurophych. Reason for ICU Addmission:: Hypoxic respiratory failure. Intubated. - Medications: Medications reviewed and adjusted accordingly: Yes Vasopressors:: None Sedation:: Propofol. Physical Exam Vital Signs: Temp Pulse Resp BP Pulse Ox 97.7 F 82 24 H 84/64 L 99 05/12/19 06:00 05/12/19 07:59 05/12/19 07:59 05/12/19 05:57 05/12/19 07:59 Intake & Output 05/11/19 05/12/19 05/13/19 06:59 06:59 06:59 Intake Total 2120 1765 Output Total 2470 2145 Balance -350 -380 Weight 93.4 kg 94.1 kg Weight/Height Weight 94.1 kg Height 5 ft 5 in General appearance: PRESENT: no acute distress Head exam: PRESENT: atraumatic, normocephalic Eye exam: PRESENT: conjunctiva pink, EOMI, PERRLA. ABSENT: scleral icterus Ear exam: PRESENT: normal external ear exam Mouth exam: PRESENT: moist, tongue midline Respiratory exam: PRESENT: clear to auscultation armand, decreased breath sounds, unlabored Cardiovascular exam: PRESENT: RRR. ABSENT: diastolic murmur, rubs, systolic murmur GI/Abdominal exam: PRESENT: normal bowel sounds, soft. ABSENT: distended, guarding, mass, organolmegaly, rebound, tenderness Rectal exam: PRESENT: deferred Gentrourinary exam: PRESENT: indwelling catheter Extremities exam: PRESENT: full ROM. ABSENT: calf tenderness, clubbing, pedal edema Musculoskeletal exam: PRESENT: normal inspection Neurological exam: PRESENT: altered, other - Sedated Psychiatric exam: PRESENT: appropriate affect, normal mood. ABSENT: homicidal ideation, suicidal ideation Skin exam: PRESENT: dry, intact, warm. ABSENT: cyanosis, rash Tubes/Lines: PRESENT: Endotracheal Tube, Arterial Catheter, Nasogastic Tube Laboratory/Radiographs Laboratory Results: 05/12/19 04:58 05/12/19 04:58 03/20/20 03/20/20 04:58 04:58 WBC 21.4 H RBC 2.98 L Hgb 7.8 L Hct 24.7 L MCV 83 MCH 26.3 L MCHC 31.8 L RDW 17.9 H Plt Count 266 Seg Neutrophils % Not Reportable Sodium 133.9 L Potassium 3.7 Chloride 98 Carbon Dioxide 29 Anion Gap 7 BUN 41 H Creatinine 0.82 Est GFR ( Amer) > 60 Glucose 167 H Calcium 7.8 L 04/22/19 04/27/19 23:10 04:20 Troponin I < 0.012 NT-Pro-B Natriuret Pep 1520 H 705 H Impressions: Interventional Vascular Procedure 05/01/19 00:00 IMPRESSION: SUCCESSFUL PLACEMENT OF A 5 FR DUAL LUMEN 35 CM PICC IN THE RIGHT BASILIC VEIN. PICC Line Insertion 05/01/19 00:00 IMPRESSION: SUCCESSFUL PLACEMENT OF A 5 FR DUAL LUMEN 35 CM PICC IN THE RIGHT BASILIC VEIN. KUB X-Ray 05/05/19 00:00 IMPRESSION: Enteric tube tip overlies proximal stomach. Chest CT 05/10/19 00:00 IMPRESSION: Cardiomegaly with pleural effusions and bilateral pneumonia superimposed on emphysema. Chest X-Ray 05/11/19 00:00 IMPRESSION: No significant change. All labs, radiographs, diagnostic studies and EKGs were personally reviewed: Yes In addition, reports of radiographic and diagnostic studies were read: Yes Assessment and Plan - Diagnosis (1) COPD (chronic obstructive pulmonary disease) Qualifiers: COPD type: COPD with acute exacerbation Qualified Code(s): J44.1 - Chronic obstructive pulmonary disease with (acute) exacerbation Is this a current diagnosis for this admission?: Yes Plan: No wheezing but I'm sure this is impacting her ability to wean and extubate. (2) Acute on chronic diastolic (congestive) heart failure Is this a current diagnosis for this admission?: Yes Plan: Resolved (3) Longstanding persistent atrial fibrillation Is this a current diagnosis for this admission?: Yes Plan: Chronis and controlled. Continue eliquis. (4) Acute and chronic respiratory failure with hypoxia Is this a current diagnosis for this admission?: Yes Plan: We will try CPAP again today and try weaning. (5) HTN (hypertension) Qualifiers: Hypertension type: essential hypertension Qualified Code(s): I10 - Essential (primary) hypertension Is this a current diagnosis for this admission?: Yes Plan: Controlled (6) Myelodysplasia (myelodysplastic syndrome) Is this a current diagnosis for this admission?: Yes (7) Leukocytosis Qualifiers: Leukocytosis type: unspecified Qualified Code(s): D72.829 - Elevated white blood cell count, unspecified Is this a current diagnosis for this admission?: Yes Plan: Total count is down. Still high at 20. (8) Fever Qualifiers: Fever type: unspecified Qualified Code(s): R50.9 - Fever, unspecified Is this a current diagnosis for this admission?: Yes Plan: She has defervesed. Her PICC s out and she has received IV tylenol. Plan Summary: Attempt weaning. She has been markedly depressed since 's . This is factoring in as well to her not getting better clinically when she is better by numbers. Critical Time Critical Time (minutes): 40 Level of Care: ICU Anticipated discharge: SNF Within: Other -: 1. The care of a critical patient is a dynamic process. This note is a solar manufacturer's representative synopsis but static in nature. The timeframe for treatments given in order is not necessarily the actual time these treatments may have been done. 2. This patient requires critical care secondary to ongoing requirements for therapy not offered or safe outside the critical care environment. Transfer to a lower level of care will result in altered life or limb morbidity and mortality. 3. Multidisciplinary rounds completed. 4. ABCDE bundle addressed.
[2019-05-12] MEDS: ROFLUMILAST 500 MCG TABLET NG SCH (09:12)
[2019-05-12] MEDS: CEFEPIME 1 GM/D5W RTU 1 GM/50 ML RTUPB IV SCH (09:12)
[2019-05-12] MEDS: ASPIRIN 81 MG TABLET, CHEWABLE NG SCH (09:12)
[2019-05-12] MEDS: MIDODRINE HCL 5 MG TABLET PO SCH ×3 (09:13→18:13)
[2019-05-12] MEDS: OSELTAMIVIR PHOSPHATE 75 MG CAPSULE NG SCH (09:14)
[2019-05-12] MEDS: BUSPIRONE HCL 10 MG TABLET NG SCH ×2 (09:14→21:46)
[2019-05-12] MEDS: CYANOCOBALAMIN (VITAMIN B-12) 1,000 MCG TABLET NG SCH (09:14)
[2019-05-12] MEDS: ATORVASTATIN CALCIUM 20 MG TABLET NG SCH (09:14)
[2019-05-12] MEDS: APIXABAN 5 MG TABLET PO SCH ×2 (09:14→18:12)
[2019-05-12] MEDS: CITALOPRAM HYDROBROMIDE 20 MG TABLET NG SCH (09:14)
--- NOTE | 2019-05-12 09:16 | PDOC CRITICAL CARE PROG REPORT ---
General Date:: 05/10/19 ICU Day:: 9 Ventilator Day:: 5 Resuscitation Status: Full Code Medical Power of Criminology Professor: Sons Events in the past 12 to 24 Hours:: Tolerated CPAP and weaning. Review of systems relevant to events:: Respiratory. Reason for ICU Addmission:: Hypoxic respiratory failure. Intubated. - Medications: Medications reviewed and adjusted accordingly: Yes Vasopressors:: None Sedation:: Propofol. Physical Exam Vital Signs: Temp Pulse Resp BP Pulse Ox 97.7 F 82 24 H 84/64 L 99 05/12/19 06:00 05/12/19 07:59 05/12/19 07:59 05/12/19 05:57 05/12/19 07:59 Intake & Output 05/11/19 05/12/19 05/13/19 06:59 06:59 06:59 Intake Total 2120 1765 Output Total 2470 2145 Balance -350 -380 Weight 93.4 kg 94.1 kg Weight/Height Weight 94.1 kg Height 5 ft 5 in General appearance: PRESENT: no acute distress, other - Sedated Head exam: PRESENT: atraumatic, normocephalic Eye exam: PRESENT: conjunctiva pink, EOMI, PERRLA. ABSENT: scleral icterus Ear exam: PRESENT: normal external ear exam Mouth exam: PRESENT: moist, tongue midline Respiratory exam: PRESENT: decreased breath sounds, unlabored Cardiovascular exam: PRESENT: RRR. ABSENT: diastolic murmur, rubs, systolic murmur Vascular exam: PRESENT: normal capillary refill GI/Abdominal exam: PRESENT: normal bowel sounds, soft. ABSENT: distended, guarding, mass, organolmegaly, rebound, tenderness Gentrourinary exam: PRESENT: indwelling catheter Extremities exam: PRESENT: full ROM. ABSENT: calf tenderness, clubbing, pedal edema Neurological exam: PRESENT: altered, other - Sedated Psychiatric exam: PRESENT: appropriate affect, normal mood. ABSENT: homicidal ideation, suicidal ideation Tubes/Lines: PRESENT: Endotracheal Tube, Arterial Catheter, Nasogastic Tube Laboratory/Radiographs Laboratory Results: 05/12/19 04:58 05/12/19 04:58 05/12/19 05/12/19 04:58 04:58 WBC 21.4 H RBC 2.98 L Hgb 7.8 L Hct 24.7 L MCV 83 MCH 26.3 L MCHC 31.8 L RDW 17.9 H Plt Count 266 Seg Neutrophils % Not Reportable Sodium 133.9 L Potassium 3.7 Chloride 98 Carbon Dioxide 29 Anion Gap 7 BUN 41 H Creatinine 0.82 Est GFR ( Amer) > 60 Glucose 167 H Calcium 7.8 L 04/22/19 04/27/19 23:10 04:20 Troponin I < 0.012 NT-Pro-B Natriuret Pep 1520 H 705 H Impressions: Interventional Vascular Procedure 05/01/19 00:00 IMPRESSION: SUCCESSFUL PLACEMENT OF A 5 FR DUAL LUMEN 35 CM PICC IN THE RIGHT BASILIC VEIN. PICC Line Insertion 05/01/19 00:00 IMPRESSION: SUCCESSFUL PLACEMENT OF A 5 FR DUAL LUMEN 35 CM PICC IN THE RIGHT BASILIC VEIN. KUB X-Ray 05/05/19 00:00 IMPRESSION: Enteric tube tip overlies proximal stomach. Chest CT 05/10/19 00:00 IMPRESSION: Cardiomegaly with pleural effusions and bilateral pneumonia superimposed on emphysema. Chest X-Ray 05/11/19 00:00 IMPRESSION: No significant change. All labs, radiographs, diagnostic studies and EKGs were personally reviewed: Yes In addition, reports of radiographic and diagnostic studies were read: Yes Assessment and Plan - Diagnosis (1) COPD (chronic obstructive pulmonary disease) Qualifiers: COPD type: COPD with acute exacerbation Qualified Code(s): J44.1 - Chronic obstructive pulmonary disease with (acute) exacerbation Is this a current diagnosis for this admission?: Yes Plan: No wheezing today. Does not sound tight. (2) Acute on chronic diastolic (congestive) heart failure Is this a current diagnosis for this admission?: Yes Plan: Resolved (3) Longstanding persistent atrial fibrillation Is this a current diagnosis for this admission?: Yes Plan: Chronic, on eliquis. (4) Acute and chronic respiratory failure with hypoxia Is this a current diagnosis for this admission?: Yes Plan: Intubated but weaning. Will try and extubate in the next24 hours. (5) HTN (hypertension) Qualifiers: Hypertension type: essential hypertension Qualified Code(s): I10 - Essential (primary) hypertension Is this a current diagnosis for this admission?: Yes Plan: Controlled. (6) Myelodysplasia (myelodysplastic syndrome) Is this a current diagnosis for this admission?: Yes Plan: Inactive. (7) Leukocytosis Qualifiers: Leukocytosis type: unspecified Qualified Code(s): D72.829 - Elevated white blood cell count, unspecified Is this a current diagnosis for this admission?: Yes Plan: Level is high. 30K. This may be myelodysplasia, but would need to R/O infectious causes first. May delay extubation. (8) Fever Qualifiers: Fever type: unspecified Qualified Code(s): R50.9 - Fever, unspecified Is this a current diagnosis for this admission?: Yes Plan Summary: Re-culture and try to get PICC out. Critical Time Critical Time (minutes): 35 Level of Care: ICU Anticipated discharge: SNF Within: Other -: 1. The care of a critical patient is a dynamic process. This note is a healthcare sales representative synopsis but static in nature. The timeframe for treatments given in order is not necessarily the actual time these treatments may have been done. 2. This patient requires critical care secondary to ongoing requirements for therapy not offered or safe outside the critical care environment. Transfer to a lower level of care will result in altered life or limb morbidity and mortality. 3. Multidisciplinary rounds completed. 4. ABCDE bundle addressed.
[2019-05-12] MEDS: NORMAL SALINE 10 ML SDV (SCHEDULED) IV SCH ×2 (10:02→21:47)
[2019-05-12] MEDS: MELATONIN 3 MG TABLET NG SCH (21:46)
--- NOTE | 2019-05-12 23:38 | RADIOLOGY REPORT (SQ) ---
EXAM DESCRIPTION: Single AP supine view of the abdomen CLINICAL HISTORY: 69 years Female, check feeding tube placement before extubation COMPARISON: Portable view of the abdomen May 05, 2019 FINDINGS: The NG tube has been removed and a weighted feeding tube has been placed into the stomach. The tip of the feeding tube is in the mid stomach along the greater curvature of the stomach. There is parenchymal opacification in the lung bases. IMPRESSION: Feeding tube in the mid stomach.
[2019-05-13] MEDS: INSULIN REG, HUMAN 100 UNIT/ML 3 ML VIAL (PYX) SUBCUT SCH ×7 (02:06→22:13)
[2019-05-13 04:39] LABS: HEMATOCRIT 24.5 % (36.0-47.0); MEAN CORPUSCULAR HEMOGLOBIN 26.6 pg (27.0-33.4); MEAN CORPUSCULAR HGB CONC 31.9 g/dL (32.0-36.0); MEAN CORPUSCULAR VOLUME 83 fl (80-97); PLATELET COUNT 297 10^3/uL (150-450); RED BLOOD COUNT 2.94 10^6/uL (3.72-5.28); RED CELL DISTRIBUTION WIDTH 17.9 % (11.5-14.0); WHITE BLOOD COUNT 25.9 10^3/uL (4.0-10.5)
[2019-05-13 04:49] LABS: ABSOLUTE MONOCYTES # (MANUAL) 0.8 10^3/uL (0.1-1.4); BASOPHILS % (MANUAL) 0 % (0-2); EOSINOPHILS % (MANUAL) 0 % (0-6); LYMPHOCYTES % (MANUAL) 4 % (13-45); MONOCYTES % (MANUAL) 3 % (3-13); SEGMENTED NEUTROPHILS % (MAN) 93 % (42-78); TOTAL CELLS COUNTED 100
[2019-05-13 04:50] LABS: ANISOCYTOSIS SLIGHT
[2019-05-13 04:51] LABS: HYPOCHROMASIA SLIGHT; OVALOCYTES SLIGHT; PLATELET COMMENT ADEQUATE
[2019-05-13 04:52] LABS: POLYCHROMASIA SLIGHT
[2019-05-13 04:53] LABS: HEMOGLOBIN 7.8 g/dL (12.0-15.5)
[2019-05-13] MEDS: MINERAL OIL/PETROLATUM,WHITE OPH OINT 3.5 GM OU SCH ×3 (05:28→21:10)
[2019-05-13] MEDS: LEVOTHYROXINE SODIUM 0.05 MG TABLET PO SCH (05:29)
[2019-05-13] MEDS: PANTOPRAZOLE SODIUM 40 MG PACKET.DR NG SCH (05:29)
[2019-05-13] MEDS: HYDROCORTISONE SOD SUCCINATE INJ/PF 100 MG/2 ML SDV IV SCH ×3 (05:31→21:11)
[2019-05-13] MEDS: ROPINIROLE HCL 2 MG TABLET NG SCH (05:35)
[2019-05-13] MEDS: ROPINIROLE HCL 2 MG TABLET PO SCH ×3 (06:05→21:09)
[2019-05-13] MEDS: PANTOPRAZOLE SODIUM 20 MG TABLET.DR PO SCH (06:05)
[2019-05-13] MEDS: IPRATROPIUM/ALBUTEROL 0.5-2.5 MG/3 ML AMPUL NEB SCH ×4 (09:30→20:01)
[2019-05-13] MEDS: MIDODRINE HCL 5 MG TABLET PO SCH ×3 (10:07→19:04)
[2019-05-13] MEDS: CYANOCOBALAMIN (VITAMIN B-12) 1,000 MCG TABLET PO SCH (10:08)
[2019-05-13] MEDS: CITALOPRAM HYDROBROMIDE 20 MG TABLET PO SCH (10:08)
[2019-05-13] MEDS: ROFLUMILAST 500 MCG TABLET PO SCH (10:08)
[2019-05-13] MEDS: APIXABAN 5 MG TABLET PO SCH ×2 (10:08→19:05)
[2019-05-13] MEDS: BUSPIRONE HCL 10 MG TABLET PO SCH ×2 (10:08→21:10)
[2019-05-13] MEDS: ASPIRIN 81 MG TABLET, CHEWABLE PO SCH (10:08)
[2019-05-13] MEDS: NORMAL SALINE 10 ML SDV (SCHEDULED) IV SCH ×2 (10:09→21:10)
--- NOTE | 2019-05-13 10:53 | PDOC CRITICAL CARE PROG REPORT ---
General Date:: 05/13/19 ICU Day:: 12 Hospital Day:: 22 Resuscitation Status: Full Code Medical Power of Lube Attendant: Sons Events in the past 12 to 24 Hours:: Extubated Review of systems relevant to events:: Respiratory Reason for ICU Addmission:: Hypoxic respiratory failure. Intubated. Now extubated. - Medications: Medications reviewed and adjusted accordingly: Yes Vasopressors:: None Sedation:: None Physical Exam Vital Signs: Temp Pulse Resp BP Pulse Ox 97.5 F 80 20 119/68 95 05/13/19 08:00 05/13/19 09:30 05/13/19 09:30 05/13/19 08:00 05/13/19 09:30 Intake & Output 05/12/19 05/13/19 05/14/19 06:59 06:59 06:59 Intake Total 1765 964 Output Total 2145 1740 175 Balance -380 -776 -175 Weight 94.1 kg 94.4 kg Weight/Height Weight 94.4 kg Height 5 ft 5 in General appearance: PRESENT: no acute distress, well-developed, well-nourished Head exam: PRESENT: atraumatic, normocephalic Eye exam: PRESENT: conjunctiva pink, EOMI, PERRLA. ABSENT: scleral icterus Ear exam: PRESENT: normal external ear exam Mouth exam: PRESENT: moist, tongue midline Respiratory exam: PRESENT: clear to auscultation armand, decreased breath sounds, unlabored Cardiovascular exam: PRESENT: RRR. ABSENT: diastolic murmur, rubs, systolic murmur GI/Abdominal exam: PRESENT: normal bowel sounds, soft. ABSENT: distended, guarding, mass, organolmegaly, rebound, tenderness Rectal exam: PRESENT: deferred Extremities exam: PRESENT: full ROM. ABSENT: calf tenderness, clubbing, pedal edema Musculoskeletal exam: PRESENT: normal inspection Neurological exam: PRESENT: alert, awake, oriented to person, oriented to place, oriented to time, oriented to situation, CN II-XII grossly intact. ABSENT: motor sensory deficit Psychiatric exam: PRESENT: anxious, appropriate affect, normal mood. ABSENT: homicidal ideation, suicidal ideation Skin exam: PRESENT: dry, intact, warm. ABSENT: cyanosis, rash Laboratory/Radiographs Laboratory Results: 05/13/19 04:07 05/12/19 04:58 05/13/19 04:07 WBC 25.9 H RBC 2.94 L Hgb 7.8 L Hct 24.5 L MCV 83 MCH 26.6 L MCHC 31.9 L RDW 17.9 H Plt Count 297 Seg Neutrophils % Not Reportable 05/11/19 05:50 Tracheal Aspirate Gram Stain - Final 05/11/19 05:50 Tracheal Aspirate Sputum Culture - Final Yeast, Not Phyllis Albicans Normal Rhea Absent 04/22/19 04/27/19 23:10 04:20 Troponin I < 0.012 NT-Pro-B Natriuret Pep 1520 H 705 H Impressions: Interventional Vascular Procedure 05/01/19 00:00 IMPRESSION: SUCCESSFUL PLACEMENT OF A 5 FR DUAL LUMEN 35 CM PICC IN THE RIGHT BASILIC VEIN. PICC Line Insertion 05/01/19 00:00 IMPRESSION: SUCCESSFUL PLACEMENT OF A 5 FR DUAL LUMEN 35 CM PICC IN THE RIGHT BASILIC VEIN. Chest CT 05/10/19 00:00 IMPRESSION: Cardiomegaly with pleural effusions and bilateral pneumonia superimposed on emphysema. Chest X-Ray 05/11/19 00:00 IMPRESSION: No significant change. KUB X-Ray 05/12/19 00:00 IMPRESSION: Feeding tube in the mid stomach. All labs, radiographs, diagnostic studies and EKGs were personally reviewed: Yes In addition, reports of radiographic and diagnostic studies were read: Yes Assessment and Plan - Diagnosis (1) COPD (chronic obstructive pulmonary disease) Qualifiers: COPD type: COPD with acute exacerbation Qualified Code(s): J44.1 - Chronic obstructive pulmonary disease with (acute) exacerbation Is this a current diagnosis for this admission?: Yes Plan: Inactive (2) Acute on chronic diastolic (congestive) heart failure Is this a current diagnosis for this admission?: Yes Plan: Resolved (3) Longstanding persistent atrial fibrillation Is this a current diagnosis for this admission?: Yes Plan: Controlled (4) Acute and chronic respiratory failure with hypoxia Is this a current diagnosis for this admission?: Yes Plan: Extubated and doing well. (5) HTN (hypertension) Qualifiers: Hypertension type: essential hypertension Qualified Code(s): I10 - Essential (primary) hypertension Is this a current diagnosis for this admission?: Yes Plan: Controlled (6) Myelodysplasia (myelodysplastic syndrome) Is this a current diagnosis for this admission?: Yes Plan: Inactive (7) Leukocytosis Qualifiers: Leukocytosis type: unspecified Qualified Code(s): D72.829 - Elevated white blood cell count, unspecified Is this a current diagnosis for this admission?: Yes Plan: Resolved (8) Fever Qualifiers: Fever type: unspecified Qualified Code(s): R50.9 - Fever, unspecified Is this a current diagnosis for this admission?: Yes Plan: Resolved (9) Influenza A Is this a current diagnosis for this admission?: Yes Plan: Her 3rd flu test was positive for flu A. Her family has it as well. COVID 19 negative. Plan Summary: Get PT involved, feed. If she does well downgade in AM. Critical Time Critical Time (minutes): 35 Level of Care: ICU Anticipated discharge: SNF Within: Other -: 1. The care of a critical patient is a dynamic process. This note is a goodwill representative synopsis but static in nature. The timeframe for treatments given in order is not necessarily the actual time these treatments may have been done. 2. This patient requires critical care secondary to ongoing requirements for therapy not offered or safe outside the critical care environment. Transfer to a lower level of care will result in altered life or limb morbidity and mortality. 3. Multidisciplinary rounds completed. 4. ABCDE bundle addressed.
[2019-05-13] MEDS ORDERED: FENTANYL CITRATE INJ/PF 100 MCG/2 ML AMPUL IV PRN (17:14)
[2019-05-13] MEDS: MELATONIN 3 MG TABLET PO SCH (21:09)
[2019-05-13] MEDS: ATORVASTATIN CALCIUM 20 MG TABLET PO SCH (21:09)
[2019-05-14] MEDS: IPRATROPIUM/ALBUTEROL 0.5-2.5 MG/3 ML AMPUL NEB PRN (05:07)
[2019-05-14] MEDS: HYDROCORTISONE SOD SUCCINATE INJ/PF 100 MG/2 ML SDV IV SCH ×2 (05:14→17:24)
[2019-05-14] MEDS: LEVOTHYROXINE SODIUM 0.05 MG TABLET PO SCH (05:15)
[2019-05-14] MEDS: PANTOPRAZOLE SODIUM 20 MG TABLET.DR PO SCH (05:15)
[2019-05-14] MEDS: MINERAL OIL/PETROLATUM,WHITE OPH OINT 3.5 GM OU SCH ×3 (05:16→21:30)
[2019-05-14] MEDS: ROPINIROLE HCL 2 MG TABLET PO SCH ×3 (05:18→21:29)
[2019-05-14] MEDS: IPRATROPIUM/ALBUTEROL 0.5-2.5 MG/3 ML AMPUL NEB SCH ×4 (08:16→20:34)
[2019-05-14] MEDS: INSULIN REG, HUMAN 100 UNIT/ML 3 ML VIAL (PYX) SUBCUT SCH ×4 (09:35→22:16)
[2019-05-14] MEDS: APIXABAN 5 MG TABLET PO SCH ×2 (09:35→17:24)
[2019-05-14] MEDS: CYANOCOBALAMIN (VITAMIN B-12) 1,000 MCG TABLET PO SCH (09:36)
[2019-05-14] MEDS: CITALOPRAM HYDROBROMIDE 20 MG TABLET PO SCH (09:36)
[2019-05-14] MEDS: MIDODRINE HCL 5 MG TABLET PO SCH ×3 (09:36→17:24)
[2019-05-14] MEDS: BUSPIRONE HCL 10 MG TABLET PO SCH ×2 (09:36→21:28)
[2019-05-14] MEDS: NORMAL SALINE 10 ML SDV (SCHEDULED) IV SCH ×2 (09:36→21:29)
[2019-05-14] MEDS: ASPIRIN 81 MG TABLET, CHEWABLE PO SCH (09:36)
[2019-05-14] MEDS: ROFLUMILAST 500 MCG TABLET PO SCH (09:36)
--- NOTE | 2019-05-14 11:19 | PDOC CRITICAL CARE PROG REPORT ---
General Date:: 05/14/19 Hospital Day:: 21 Resuscitation Status: Full Code Medical Power of Wine Maker: Sons Events in the past 12 to 24 Hours:: Feeling better, eating more. Review of systems relevant to events:: Respiratory Reason for ICU Addmission:: Doing better, ready to downgrade. - Medications: Medications reviewed and adjusted accordingly: Yes Vasopressors:: None Sedation:: None Physical Exam Vital Signs: Temp Pulse Resp BP Pulse Ox 97.5 F 81 23 H 145/52 H 91 L 05/14/19 08:00 05/14/19 09:00 05/14/19 09:00 05/14/19 09:00 05/14/19 09:00 Intake & Output 05/13/19 05/14/19 05/15/19 06:59 06:59 06:59 Intake Total 964 Output Total 1740 1260 75 Balance -776 -1260 -75 Weight 94.4 kg 91.6 kg Weight/Height Weight 91.6 kg Height 5 ft 5 in General appearance: PRESENT: no acute distress, well-developed, well-nourished Head exam: PRESENT: atraumatic, normocephalic Eye exam: PRESENT: conjunctiva pink, EOMI, PERRLA. ABSENT: scleral icterus Ear exam: PRESENT: normal external ear exam Mouth exam: PRESENT: moist, tongue midline Respiratory exam: PRESENT: clear to auscultation armand, decreased breath sounds. ABSENT: rales, rhonchi, wheezes Cardiovascular exam: PRESENT: irregular rhythm. ABSENT: diastolic murmur, rubs, systolic murmur GI/Abdominal exam: PRESENT: normal bowel sounds, soft. ABSENT: distended, guarding, mass, organolmegaly, rebound, tenderness Rectal exam: PRESENT: deferred Extremities exam: PRESENT: full ROM. ABSENT: calf tenderness, clubbing, pedal edema Neurological exam: PRESENT: alert, awake, oriented to person, oriented to place, oriented to time, oriented to situation, CN II-XII grossly intact. ABSENT: motor sensory deficit Psychiatric exam: PRESENT: appropriate affect, normal mood. ABSENT: homicidal ideation, suicidal ideation Skin exam: PRESENT: dry, intact, warm. ABSENT: cyanosis, rash Laboratory/Radiographs Laboratory Results: 05/13/19 04:07 05/12/19 04:58 04/22/19 04/27/19 23:10 04:20 Troponin I < 0.012 NT-Pro-B Natriuret Pep 1520 H 705 H Impressions: Interventional Vascular Procedure 05/01/19 00:00 IMPRESSION: SUCCESSFUL PLACEMENT OF A 5 FR DUAL LUMEN 35 CM PICC IN THE RIGHT BASILIC VEIN. PICC Line Insertion 05/01/19 00:00 IMPRESSION: SUCCESSFUL PLACEMENT OF A 5 FR DUAL LUMEN 35 CM PICC IN THE RIGHT BASILIC VEIN. Chest CT 05/10/19 00:00 IMPRESSION: Cardiomegaly with pleural effusions and bilateral pneumonia superimposed on emphysema. KUB X-Ray 05/12/19 00:00 IMPRESSION: Feeding tube in the mid stomach. All labs, radiographs, diagnostic studies and EKGs were personally reviewed: Yes In addition, reports of radiographic and diagnostic studies were read: Yes Assessment and Plan - Diagnosis (1) COPD (chronic obstructive pulmonary disease) Qualifiers: COPD type: COPD with acute exacerbation Qualified Code(s): J44.1 - Chronic obstructive pulmonary disease with (acute) exacerbation Is this a current diagnosis for this admission?: Yes Plan: Chronic but not currently active. (2) Acute on chronic diastolic (congestive) heart failure Is this a current diagnosis for this admission?: Yes Plan: Resolved (3) Longstanding persistent atrial fibrillation Is this a current diagnosis for this admission?: Yes Plan: Controlled at 80. (4) Acute and chronic respiratory failure with hypoxia Is this a current diagnosis for this admission?: Yes Plan: Resolved (5) HTN (hypertension) Qualifiers: Hypertension type: essential hypertension Qualified Code(s): I10 - Essential (primary) hypertension Is this a current diagnosis for this admission?: Yes Plan: Controlled (6) Myelodysplasia (myelodysplastic syndrome) Is this a current diagnosis for this admission?: Yes Plan: Quiescent (7) Leukocytosis Qualifiers: Leukocytosis type: unspecified Qualified Code(s): D72.829 - Elevated white blood cell count, unspecified Is this a current diagnosis for this admission?: Yes Plan: Stil present but no infection. (8) Fever Qualifiers: Fever type: unspecified Qualified Code(s): R50.9 - Fever, unspecified Is this a current diagnosis for this admission?: Yes Plan: Resolved (9) Influenza A Is this a current diagnosis for this admission?: Yes Plan: She has completed alina-flu course and needs no further treatment. Plan Summary: OK to downgrade to medical. Discharge when there is an accepting facility for discharge. Critical Time Critical Time (minutes): 25 Level of Care: MEDICAL Anticipated discharge: SNF Within: within 72 hours -: 1. The care of a critical patient is a dynamic process. This note is a rep resentative synopsis but static in nature. The timeframe for treatments given in order is not necessarily the actual time these treatments may have been done. 2. This patient requires critical care secondary to ongoing requirements for therapy not offered or safe outside the critical care environment. Transfer to a lower level of care will result in altered life or limb morbidity and mortality. 3. Multidisciplinary rounds completed. 4. ABCDE bundle addressed.
--- NOTE | 2019-05-14 11:29 | RADIOLOGY REPORT (SQ) ---
EXAM DESCRIPTION: CHEST SINGLE VIEW COMPLETED DATE/TIME: 05/14/2019 7:41 am REASON FOR STUDY: increased O2 requirements; r/o worse infiltrate COMPARISON: 05/11/2019 NUMBER OF VIEWS: One view. TECHNIQUE: Single frontal radiographic image of the chest acquired. LIMITATIONS: None. FINDINGS: LUNGS AND PLEURA: Bilateral airspace disease with relative sparing of the left upper lobe not significantly changed allowing for differences in technique. No large effusions. MEDIASTINUM AND HEART: Stable heart size and mediastinal structures. SUPPORT DEVICES: Stable position of left pacemaker. Removal of right PICC line. Removal of nasogast katie tube. Placement of feeding tube. Removal of endotracheal tube. BONY STRUCTURES: No acute findings. HARDWARE: None. OTHER: No other significant finding. IMPRESSION: Interval change in support apparatus. Otherwise no significant change. Reading location - IP/workstation name: [email or web address]
[2019-05-14] MEDS: ATORVASTATIN CALCIUM 20 MG TABLET PO SCH (21:28)
[2019-05-14] MEDS: MELATONIN 3 MG TABLET PO SCH (21:29)
[2019-05-14] MEDS ORDERED: QUETIAPINE FUMARATE 100 MG TABLET PO SCH (22:00)
[2019-05-15] MEDS: IPRATROPIUM/ALBUTEROL 0.5-2.5 MG/3 ML AMPUL NEB PRN (02:58)
[2019-05-15] MEDS ORDERED: LORAZEPAM INJ 2 MG/1 ML VIAL IV ONE (03:00)
--- NOTE | 2019-05-15 03:19 | Progress Note ---
<RORO ESTRELLA - Last Filed: 05/15/19 04:39> Provider Note Provider Note: Date/Time of Encounter: 05/15/2019 02:30 AM HPI: see critical care H&P as patient is well-known to our service. Notified by RN that patient is tachypneic with increased work of breathing associated with coarse breath sounds. My focused physical exam: A&O x3, denies pain, endorses some anxiety Pulm: Clear to auscultation bilaterally with no wheezing, crackles, or rubs. Patient is moderately labored. Symmetric chest wall expansion. No chest wall tenderness. Trachea midline. CV: S1S2 no M/R/G, hemodynamically stable. Denies chest pain RR 40 and moderate work of breathing which improved to mild work of breathing with RR 35 following change to BiPAP. Patient reported breathing was better. HR 80 paced rhythm BP 103/75 Temp 98.8 Imaging: Comparison of two previous chest x-rays (last being 05/13) indicates no significant change in infiltrative pattern. Plan: -During encounter, I changed patient from CPAP 12 to BiPAP 18/6 while maintaining 45% FiO2. -Though patient is not wheezing and does not sound tight/diminished, she is requesting a nebulized treatment at this time. When asked if she experiences episodes like this at home, she reported yes and that she usually takes a nebulizer which helps. Will ask RT to administer nebulizer treatment x1. -Patient also admits to feeling anxious for which I will cautiously administer 1 mg of Lorazepam IV x1 dose. The Lorazepam can be reversed with Flumazenil should the patient experience drug-induced respiratory depression. -If neither of the above resolve the tachypnea or work of breathing, I will order a stat chest x-ray evaluating for new/worsening infiltrate or congestion, though I think the likelihood is small at this time given interval imaging history and lung sounds. Critical care time spent: 20 minutes at bedside assessing patient as well as changing modes on non-invasive ventilator with multiple titrations in IPAP/EPAP to assist augmenting patient comfort/work of breathing. <CECILE MEYER - Last Filed: 05/15/19 07:07> Provider Note Provider Note: Patient's diagnosis is acute hypoxic respiratory failure from COPD and influenza A.
[2019-05-15] MEDS: HYDROCORTISONE SOD SUCCINATE INJ/PF 100 MG/2 ML SDV IV SCH ×2 (05:00→17:10)
[2019-05-15] MEDS: MINERAL OIL/PETROLATUM,WHITE OPH OINT 3.5 GM OU SCH ×3 (05:01→21:34)
[2019-05-15] MEDS: ALBUTEROL SULFATE 0.042% NEB (1.25 MG/3 ML) AMPUL NEB PRN (05:20)
[2019-05-15] MEDS: LEVOTHYROXINE SODIUM 0.05 MG TABLET PO SCH (07:43)
[2019-05-15] MEDS: PANTOPRAZOLE SODIUM 20 MG TABLET.DR PO SCH (07:43)
[2019-05-15] MEDS: ROPINIROLE HCL 2 MG TABLET PO SCH ×3 (07:43→21:34)
[2019-05-15] MEDS: INSULIN REG, HUMAN 100 UNIT/ML 3 ML VIAL (PYX) SUBCUT SCH ×4 (07:43→21:34)
[2019-05-15 08:27] LABS: HEMATOCRIT 26.5 % (36.0-47.0); HEMOGLOBIN 8.5 g/dL (12.0-15.5); MEAN CORPUSCULAR HEMOGLOBIN 27.1 pg (27.0-33.4); MEAN CORPUSCULAR VOLUME 85 fl (80-97); PLATELET COUNT 290 10^3/uL (150-450); RED BLOOD COUNT 3.14 10^6/uL (3.72-5.28); RED CELL DISTRIBUTION WIDTH 19.1 % (11.5-14.0); WHITE BLOOD COUNT 22.2 10^3/uL (4.0-10.5)
[2019-05-15 08:40] LABS: ANION GAP 5 (5-19); BLOOD UREA NITROGEN 39 mg/dL (7-20); CALCIUM 8.2 mg/dL (8.4-10.2); CARBON DIOXIDE 30 mmol/L (22-30); CHLORIDE 106 mmol/L (98-107); GLUCOSE 109 mg/dL (75-110); PHOSPHORUS 3.6 mg/dL (2.5-4.5)
[2019-05-15 09:20] LABS: ABSOLUTE LYMPHOCYTES# (MANUAL) 0.2 10^3/uL (0.5-4.7); ABSOLUTE MONOCYTES # (MANUAL) 0.4 10^3/uL (0.1-1.4); BAND NEUTROPHILS % (MANUAL) 1 % (3-5); BASOPHILS % (MANUAL) 0 % (0-2); EOSINOPHILS % (MANUAL) 0 % (0-6); LYMPHOCYTES % (MANUAL) 1 % (13-45); MONOCYTES % (MANUAL) 2 % (3-13); NUCLEATED RED BLOOD CELLS 1 /100 WBC (0); SEGMENTED NEUTROPHILS % (MAN) 96 % (42-78); TOTAL CELLS COUNTED 100
[2019-05-15 09:22] LABS: ANISOCYTOSIS 2+; OVALOCYTES SLIGHT; POIKILOCYTOSIS SLIGHT; POLYCHROMASIA 1+; TOXIC GRANULATION SLIGHT; TOXIC VACUOLATION PRESENT
[2019-05-15 09:23] LABS: PLATELET COMMENT ADEQUATE; TEAR DROP CELLS SLIGHT
[2019-05-15] MEDS: IPRATROPIUM/ALBUTEROL 0.5-2.5 MG/3 ML AMPUL NEB SCH ×3 (10:15→20:26)
--- NOTE | 2019-05-15 10:27 | RADIOLOGY REPORT (SQ) ---
EXAM DESCRIPTION: CHEST SINGLE VIEW COMPLETED DATE/TIME: 05/15/2019 9:45 am REASON FOR STUDY: increased BiPAP req; R/O new/worse infiltrate COMPARISON: 05/14/2019 NUMBER OF VIEWS: One view. TECHNIQUE: Single frontal radiographic image of the chest acquired. LIMITATIONS: None. FINDINGS: LUNGS AND PLEURA: Bilateral airspace disease with more confluent density in the right lung compared to the left. No significant change. No large effusions. MEDIASTINUM AND HEART: Stable heart size and mediastinal structures. SUPPORT DEVICES: Appropriate location without change. BONY STRUCTURES: No acute findings. HARDWARE: None. OTHER: No other significant finding. IMPRESSION: STABLE APPEARANCE OF THE CHEST. SUPPORT DEVICES UNCHANGED. Reading location - IP/workstation name: [email or web address]
[2019-05-15] MEDS: CITALOPRAM HYDROBROMIDE 20 MG TABLET PO SCH (10:31)
[2019-05-15] MEDS: BUSPIRONE HCL 10 MG TABLET PO SCH ×2 (10:31→21:34)
[2019-05-15] MEDS: APIXABAN 5 MG TABLET PO SCH ×2 (10:31→17:10)
[2019-05-15] MEDS: CYANOCOBALAMIN (VITAMIN B-12) 1,000 MCG TABLET PO SCH (10:31)
[2019-05-15] MEDS: ROFLUMILAST 500 MCG TABLET PO SCH (10:31)
[2019-05-15] MEDS: ASPIRIN 81 MG TABLET, CHEWABLE PO SCH (10:31)
[2019-05-15] MEDS: MIDODRINE HCL 5 MG TABLET PO SCH ×3 (10:31→17:10)
[2019-05-15] MEDS: NORMAL SALINE 10 ML SDV (SCHEDULED) IV SCH ×2 (10:32→21:40)
--- NOTE | 2019-05-15 15:49 | PDOC CRITICAL CARE PROG REPORT ---
General Date:: 05/15/19 Resuscitation Status: Full Code Medical Power of Power Barker Operator: Sons Events in the past 12 to 24 Hours:: 69-year-old white female with severe COPD who had a rough night with hypoxia and tachypnea. Seems to have calmed down at this point and is maintaining her sat at around 85% on nasal cannula. She reminds me that she is on oxygen 2 L at home and 3 with exertion as well as BiPAP at night so she may not be a whole lot different than her baseline. Was able to drink some Ensure today and hopefully will be mobilized to a chair today. Reason for ICU Addmission:: Doing better, ready to downgrade. - Medications: Medications reviewed and adjusted accordingly: Yes Physical Exam Vital Signs: Temp Pulse Resp BP Pulse Ox 98.2 F 84 24 H 110/64 90 L 05/15/19 14:01 05/15/19 15:00 05/15/19 15:00 05/15/19 14:01 05/15/19 15:00 Intake & Output 05/14/19 05/15/19 05/16/19 06:59 06:59 06:59 Intake Total 250 150 Output Total 1260 550 400 Balance -1260 -300 -250 Weight 91.6 kg 93.3 kg 93.3 kg Weight/Height Weight 93.3 kg Height 5 ft 5 in General appearance: PRESENT: mild distress, obese Head exam: PRESENT: normocephalic Eye exam: PRESENT: EOMI, PERRLA. ABSENT: conjunctival injection Mouth exam: PRESENT: moist Throat exam: ABSENT: tonsillar exudate Neck exam: ABSENT: carotid bruit, JVD, lymphadenopathy Respiratory exam: PRESENT: decreased breath sounds. ABSENT: rales, wheezes Cardiovascular exam: PRESENT: RRR GI/Abdominal exam: PRESENT: soft. ABSENT: tenderness Extremities exam: PRESENT: +1 edema Neurological exam: PRESENT: alert, oriented to place, oriented to time, oriented to situation Skin exam: PRESENT: dry, warm Laboratory/Radiographs Laboratory Results: 05/15/19 08:14 05/15/19 08:14 05/15/19 05/15/19 08:14 08:14 WBC 22.2 H RBC 3.14 L Hgb 8.5 L Hct 26.5 L MCV 85 MCH 27.1 MCHC 32.0 RDW 19.1 H Plt Count 290 Seg Neutrophils % Not Reportable Sodium 141.4 Potassium 4.0 Chloride 106 Carbon Dioxide 30 Anion Gap 5 BUN 39 H Creatinine 0.80 Est GFR ( Amer) > 60 Glucose 109 Calcium 8.2 L Phosphorus 3.6 04/22/19 04/27/19 23:10 04:20 Troponin I < 0.012 NT-Pro-B Natriuret Pep 1520 H 705 H Impressions: Interventional Vascular Procedure 05/01/19 00:00 IMPRESSION: SUCCESSFUL PLACEMENT OF A 5 FR DUAL LUMEN 35 CM PICC IN THE RIGHT BASILIC VEIN. PICC Line Insertion 05/01/19 00:00 IMPRESSION: SUCCESSFUL PLACEMENT OF A 5 FR DUAL LUMEN 35 CM PICC IN THE RIGHT BASILIC VEIN. Chest CT 05/10/19 00:00 IMPRESSION: Cardiomegaly with pleural effusions and bilateral pneumonia superimposed on emphysema. KUB X-Ray 05/12/19 00:00 IMPRESSION: Feeding tube in the mid stomach. Chest X-Ray 05/15/19 00:00 IMPRESSION: STABLE APPEARANCE OF THE CHEST. SUPPORT DEVICES UNCHANGED. Assessment and Plan - Diagnosis (1) COPD (chronic obstructive pulmonary disease) Qualifiers: COPD type: COPD with acute exacerbation Qualified Code(s): J44.1 - Chronic obstructive pulmonary disease with (acute) exacerbation Is this a current diagnosis for this admission?: Yes Plan Summary: Impression Severe COPD White count is coming down Acute on chronic respiratory failure Poor mobilization and deconditioning Persistent hypoxia and tachypnea at times Plan Push enteral nutrition with Ensure Mobilize as tolerated Continue current medications Critical Time Critical Time (minutes): 25 Level of Care: ICU
[2019-05-15] MEDS: ATORVASTATIN CALCIUM 20 MG TABLET PO SCH (21:33)
[2019-05-15] MEDS: MELATONIN 5 MG TABLET PO SCH (21:34)
[2019-05-15] MEDS: ZOLPIDEM TARTRATE 5 MG TABLET PO SCH (21:47)
[2019-05-16] MEDS: IPRATROPIUM/ALBUTEROL 0.5-2.5 MG/3 ML AMPUL NEB SCH ×4 (01:26→19:32)
[2019-05-16] MEDS: MINERAL OIL/PETROLATUM,WHITE OPH OINT 3.5 GM OU SCH ×3 (05:08→21:30)
[2019-05-16] MEDS: HYDROCORTISONE SOD SUCCINATE INJ/PF 100 MG/2 ML SDV IV SCH ×2 (05:19→18:08)
[2019-05-16] MEDS: ROPINIROLE HCL 2 MG TABLET PO SCH ×3 (05:19→21:29)
[2019-05-16] MEDS: LEVOTHYROXINE SODIUM 0.05 MG TABLET PO SCH (05:19)
[2019-05-16] MEDS: PANTOPRAZOLE SODIUM 20 MG TABLET.DR PO SCH (05:19)
[2019-05-16] MEDS: INSULIN REG, HUMAN 100 UNIT/ML 3 ML VIAL (PYX) SUBCUT SCH ×4 (08:05→21:36)
[2019-05-16] MEDS: APIXABAN 5 MG TABLET PO SCH ×2 (09:51→18:08)
[2019-05-16] MEDS: CITALOPRAM HYDROBROMIDE 20 MG TABLET PO SCH (09:51)
[2019-05-16] MEDS: ROFLUMILAST 500 MCG TABLET PO SCH (09:51)
[2019-05-16] MEDS: ASPIRIN 81 MG TABLET, CHEWABLE PO SCH (09:51)
[2019-05-16] MEDS: MIDODRINE HCL 5 MG TABLET PO SCH ×3 (09:52→18:08)
[2019-05-16] MEDS: CYANOCOBALAMIN (VITAMIN B-12) 1,000 MCG TABLET PO SCH (09:52)
[2019-05-16] MEDS: BUSPIRONE HCL 10 MG TABLET PO SCH ×2 (09:52→21:29)
[2019-05-16] MEDS: NORMAL SALINE 10 ML SDV (SCHEDULED) IV SCH ×2 (09:54→21:30)
[2019-05-16] MEDS: ALBUTEROL SULFATE 0.042% NEB (1.25 MG/3 ML) AMPUL NEB PRN ×2 (10:09→17:39)
[2019-05-16] MEDS ORDERED: VANCOMYCIN HCL INJ 1000 MG VIAL IV ONE (14:41)
--- NOTE | 2019-05-16 14:50 | PDOC CRITICAL CARE PROG REPORT ---
General Date:: 05/16/19 Resuscitation Status: Full Code Medical Power of Pickling Grader: Sons Events in the past 12 to 24 Hours:: 69-year-old white female with severe COPD and pneumonia with hypoxia and tachypnea. He is back on high flow oxygen and her chest x-ray brings up a question of a persistent or even new infiltrate on the right. She has already completed her antibiotics on this admission. She states that she is feeling better she is able to drink some Ensure again today and hopefully will be mobilized to a chair today. Reason for ICU Addmission:: Doing better, ready to downgrade. Physical Exam Vital Signs: Temp Pulse Resp BP Pulse Ox 98.2 F 80 25 H 129/84 H 99 05/16/19 14:02 05/16/19 13:42 05/16/19 14:02 05/16/19 14:02 05/16/19 14:02 Intake & Output 05/15/19 05/16/19 05/17/19 06:59 06:59 06:59 Intake Total 250 150 Output Total 550 685 Balance -300 -535 Weight 93.3 kg 92.1 kg Weight/Height Weight 92.1 kg Height 5 ft 5 in General appearance: PRESENT: mild distress, obese Eye exam: PRESENT: conjunctival injection, EOMI, PERRLA Neck exam: ABSENT: carotid bruit, JVD, lymphadenopathy Respiratory exam: PRESENT: rales - on R. ABSENT: wheezes Cardiovascular exam: PRESENT: RRR GI/Abdominal exam: PRESENT: soft. ABSENT: tenderness Neurological exam: PRESENT: alert, oriented to person, oriented to place, oriented to time, oriented to situation Skin exam: PRESENT: dry, warm Laboratory/Radiographs Laboratory Results: 05/15/19 08:14 05/15/19 08:14 05/11/19 09:35 Blood Blood Culture - Final NO GROWTH IN 5 DAYS 05/11/19 08:03 Blood Blood Culture - Final NO GROWTH IN 5 DAYS 04/22/19 04/27/19 23:10 04:20 Troponin I < 0.012 NT-Pro-B Natriuret Pep 1520 H 705 H Impressions: Interventional Vascular Procedure 05/01/19 00:00 IMPRESSION: SUCCESSFUL PLACEMENT OF A 5 FR DUAL LUMEN 35 CM PICC IN THE RIGHT BASILIC VEIN. PICC Line Insertion 05/01/19 00:00 IMPRESSION: SUCCESSFUL PLACEMENT OF A 5 FR DUAL LUMEN 35 CM PICC IN THE RIGHT BASILIC VEIN. Chest CT 05/10/19 00:00 IMPRESSION: Cardiomegaly with pleural effusions and bilateral pneumonia superimposed on emphysema. KUB X-Ray 05/12/19 00:00 IMPRESSION: Feeding tube in the mid stomach. Chest X-Ray 05/15/19 00:00 IMPRESSION: STABLE APPEARANCE OF THE CHEST. SUPPORT DEVICES UNCHANGED. Assessment and Plan - Diagnosis (1) COPD (chronic obstructive pulmonary disease) Qualifiers: COPD type: COPD with acute lower respiratory infection Qualified Code(s): J44.0 - Chronic obstructive pulmonary disease with (acute) lower respiratory infection Is this a current diagnosis for this admission?: Yes (2) Pneumonia Qualifiers: Pneumonia type: due to unspecified organism Laterality: right Lung location: lower lobe of lung Qualified Code(s): J18.9 - Pneumonia, unspecified organism Is this a current diagnosis for this admission?: Yes Plan: IMP: I am concerned that this pneumonia has not been treated completely She has been off antibiotics for several days COPD seems to be responding to neb therapy and the steroids She is eating better also Plan: Resume triple antibiotic therapy: cefepime, Levaquin and 1 dose of vanc Follow-up chest x-ray and lab in a.m. Critical Time Critical Time (minutes): 25 Level of Care: ICU -: 1. The care of a critical patient is a dynamic process. This note is a logistics service representative synopsis but static in nature. The timeframe for treatments given in order is not necessarily the actual time these treatments may have been done. 2. This patient requires critical care secondary to ongoing requirements for therapy not offered or safe outside the critical care environment. Transfer to a lower level of care will result in altered life or limb morbidity and mortality. 3. Multidisciplinary rounds completed. 4. ABCDE bundle addressed.
[2019-05-16] MEDS ORDERED: VANCOMYCIN HCL 1,000 MG in DEXTROSE 5%-WATER 250 ML IV ONE (16:00)
[2019-05-16] MEDS: LEVOFLOXACIN 500 MG/D5W RTU 500 MG/100 ML RTUPB IV SCH (16:49)
[2019-05-16] MEDS: ATORVASTATIN CALCIUM 20 MG TABLET PO SCH (21:29)
[2019-05-16] MEDS: CEFEPIME 1 GM/D5W RTU 1 GM/50 ML RTUPB IV SCH (21:30)
[2019-05-16] MEDS: MORPHINE SULFATE 10 MG/ML INJ IV PRN (21:59)
[2019-05-16] MEDS: ZOLPIDEM TARTRATE 5 MG TABLET PO SCH (22:06)
[2019-05-16] MEDS: MELATONIN 5 MG TABLET PO SCH (22:06)
[2019-05-17] MEDS: MORPHINE SULFATE 10 MG/ML INJ IV PRN ×3 (02:42→20:16)
[2019-05-17] MEDS: IPRATROPIUM/ALBUTEROL 0.5-2.5 MG/3 ML AMPUL NEB SCH ×4 (03:31→20:30)
[2019-05-17 04:36] LABS: HEMATOCRIT 25.9 % (36.0-47.0); MEAN CORPUSCULAR HEMOGLOBIN 26.1 pg (27.0-33.4); MEAN CORPUSCULAR HGB CONC 30.6 g/dL (32.0-36.0); MEAN CORPUSCULAR VOLUME 85 fl (80-97); PLATELET COUNT 271 10^3/uL (150-450); RED BLOOD COUNT 3.04 10^6/uL (3.72-5.28); RED CELL DISTRIBUTION WIDTH 19.5 % (11.5-14.0); WHITE BLOOD COUNT 16.4 10^3/uL (4.0-10.5)
[2019-05-17 04:46] LABS: ALBUMIN 2.6 g/dL (3.5-5.0); ALKALINE PHOSPHATASE 158 U/L (38-126); ASPARTATE AMINO TRANSFERASE 34 U/L (14-36); BILIRUBIN,DIRECT 0.1 mg/dL (0.0-0.4); BILIRUBIN,TOTAL 0.9 mg/dL (0.2-1.3); BLOOD UREA NITROGEN 38 mg/dL (7-20); CALCIUM 8.1 mg/dL (8.4-10.2); GLUCOSE 105 mg/dL (75-110); POTASSIUM 3.7 mmol/L (3.6-5.0); TOTAL PROTEIN 5.2 g/dL (6.3-8.2)
[2019-05-17 04:52] LABS: CARBON DIOXIDE 35 mmol/L (22-30); CHLORIDE 104 mmol/L (98-107)
[2019-05-17 04:58] LABS: ANION GAP 2 (5-19)
[2019-05-17 05:08] LABS: ABSOLUTE LYMPHOCYTES# (MANUAL) 0.5 10^3/uL (0.5-4.7); ABSOLUTE MONOCYTES # (MANUAL) 0.5 10^3/uL (0.1-1.4); ANISOCYTOSIS 2+; BASOPHILS % (MANUAL) 0 % (0-2); EOSINOPHILS % (MANUAL) 1 % (0-6); LYMPHOCYTES % (MANUAL) 3 % (13-45); MONOCYTES % (MANUAL) 3 % (3-13); PLATELET COMMENT ADEQUATE; POLYCHROMASIA 1+; SEGMENTED NEUTROPHILS % (MAN) 93 % (42-78); TOTAL CELLS COUNTED 100; TOXIC GRANULATION 1+
[2019-05-17 05:09] LABS: HEMOGLOBIN 7.9 g/dL (12.0-15.5)
[2019-05-17] MEDS: MINERAL OIL/PETROLATUM,WHITE OPH OINT 3.5 GM OU SCH ×3 (05:21→21:24)
[2019-05-17] MEDS: PANTOPRAZOLE SODIUM 20 MG TABLET.DR PO SCH (05:41)
[2019-05-17] MEDS: ROPINIROLE HCL 2 MG TABLET PO SCH ×3 (05:41→22:15)
[2019-05-17] MEDS: CEFEPIME 1 GM/D5W RTU 1 GM/50 ML RTUPB IV SCH ×3 (05:41→22:15)
[2019-05-17] MEDS: HYDROCORTISONE SOD SUCCINATE INJ/PF 100 MG/2 ML SDV IV SCH ×2 (05:41→17:06)
[2019-05-17] MEDS: LEVOTHYROXINE SODIUM 0.05 MG TABLET PO SCH (05:41)
--- NOTE | 2019-05-17 07:28 | RADIOLOGY REPORT (SQ) ---
Chest one view on 05/17/2019 at 6:07 AM CLINICAL INDICATION: Pneumonia COMPARISON: 05/15/2019 FINDINGS: There has been no significant change in right greater than left interstitial predominant opacities that may be predominantly related to chronic underlying interstitial lung disease although component of superimposed edema and/or pneumonia may also be present. There are stable small bilateral pleural effusions. Single lead left subclavian pacemaker tip is in the right ventricle. Borderline cardiomegaly is noted. IMPRESSION: No significant change in the appearance of the chest.
[2019-05-17] MEDS: INSULIN REG, HUMAN 100 UNIT/ML 3 ML VIAL (PYX) SUBCUT SCH ×4 (08:30→22:25)
[2019-05-17] MEDS: LEVOFLOXACIN 500 MG/D5W RTU 500 MG/100 ML RTUPB IV SCH (10:08)
[2019-05-17] MEDS: MIDODRINE HCL 5 MG TABLET PO SCH ×3 (10:08→17:07)
[2019-05-17] MEDS: ROFLUMILAST 500 MCG TABLET PO SCH (10:08)
[2019-05-17] MEDS: CYANOCOBALAMIN (VITAMIN B-12) 1,000 MCG TABLET PO SCH (10:09)
[2019-05-17] MEDS: BUSPIRONE HCL 10 MG TABLET PO SCH ×2 (10:09→22:15)
[2019-05-17] MEDS: APIXABAN 5 MG TABLET PO SCH ×2 (10:09→17:07)
[2019-05-17] MEDS: CITALOPRAM HYDROBROMIDE 20 MG TABLET PO SCH (10:09)
[2019-05-17] MEDS: ASPIRIN 81 MG TABLET, CHEWABLE PO SCH (10:09)
[2019-05-17] MEDS: NORMAL SALINE 10 ML SDV (SCHEDULED) IV SCH ×2 (10:11→22:16)
--- NOTE | 2019-05-17 14:43 | PDOC CRITICAL CARE PROG REPORT ---
General Date:: 05/17/19 Resuscitation Status: Full Code Medical Power of New Accounts Clerk: Sons Events in the past 12 to 24 Hours:: 69-year-old white female with severe COPD and pneumonia with hypoxia and tachypnea. She is back on high flow oxygen and her chest x-ray brings up a question of persistent or worsening infiltrates but WBC is down today and she was started back on antibiotics yesterday. She states she is more short of breath today. She has taken some some Ensure but overall p.o. intake is poor. Finally I did discuss her wishes with her today and she would like to remain a full code. She is lucid in my opinion. Reason for ICU Addmission:: Doing better, ready to downgrade. Physical Exam Vital Signs: Temp Pulse Resp BP Pulse Ox 98.0 F 81 28 H 124/82 94 05/17/19 10:00 05/17/19 13:37 05/17/19 13:37 05/17/19 10:03 05/17/19 13:37 Intake & Output 05/16/19 05/17/19 05/18/19 06:59 06:59 06:59 Intake Total 150 450 Output Total 685 200 Balance -535 250 Weight 92.1 kg 92.4 kg Weight/Height Weight 92.4 kg Height 5 ft 5 in General appearance: PRESENT: mild distress, obese Head exam: PRESENT: normocephalic Eye exam: PRESENT: conjunctival injection, EOMI, PERRLA Mouth exam: PRESENT: neck supple Neck exam: ABSENT: carotid bruit, JVD, lymphadenopathy Respiratory exam: PRESENT: decreased breath sounds, rales. ABSENT: wheezes Cardiovascular exam: PRESENT: RRR GI/Abdominal exam: PRESENT: soft. ABSENT: tenderness Neurological exam: PRESENT: alert, awake, oriented to person, oriented to place, oriented to time, oriented to situation, CN II-XII grossly intact Skin exam: PRESENT: dry, warm Laboratory/Radiographs Laboratory Results: 05/17/19 04:12 05/17/19 04:12 05/17/19 05/17/19 04:12 04:12 WBC 16.4 H RBC 3.04 L Hgb 7.9 L Hct 25.9 L MCV 85 MCH 26.1 L MCHC 30.6 L RDW 19.5 H Plt Count 271 Seg Neutrophils % Not Reportable Sodium 141.1 Potassium 3.7 Chloride 104 Carbon Dioxide 35 H Anion Gap 2 L BUN 38 H Creatinine 0.76 Est GFR ( Amer) > 60 Glucose 105 Calcium 8.1 L Total Bilirubin 0.9 AST 34 Alkaline Phosphatase 158 H Total Protein 5.2 L Albumin 2.6 L 04/22/19 04/27/19 23:10 04:20 Troponin I < 0.012 NT-Pro-B Natriuret Pep 1520 H 705 H Impressions: Interventional Vascular Procedure 05/01/19 00:00 IMPRESSION: SUCCESSFUL PLACEMENT OF A 5 FR DUAL LUMEN 35 CM PICC IN THE RIGHT BASILIC VEIN. PICC Line Insertion 05/01/19 00:00 IMPRESSION: SUCCESSFUL PLACEMENT OF A 5 FR DUAL LUMEN 35 CM PICC IN THE RIGHT BASILIC VEIN. Chest CT 05/10/19 00:00 IMPRESSION: Cardiomegaly with pleural effusions and bilateral pneumonia superimposed on emphysema. KUB X-Ray 05/12/19 00:00 IMPRESSION: Feeding tube in the mid stomach. Chest X-Ray 05/17/19 07:00 IMPRESSION: No significant change in the appearance of the chest. Assessment and Plan - Diagnosis (1) COPD (chronic obstructive pulmonary disease) Qualifiers: COPD type: COPD with acute lower respiratory infection Qualified Code(s): J44.0 - Chronic obstructive pulmonary disease with (acute) lower respiratory infection Is this a current diagnosis for this admission?: Yes (2) Pneumonia Qualifiers: Pneumonia type: due to unspecified organism Laterality: right Lung location: lower lobe of lung Qualified Code(s): J18.9 - Pneumonia, unspecified organism Is this a current diagnosis for this admission?: Yes Plan: Impression: Despite resuming antibiotics and despite the white count coming down her x-ray looks somewhat worse and her respiratory status seems to have declined. She does wish to remain a full code. Plan: I do not see changing her antibiotics again today A PICC line will be replaced I will try to contact her children She is at risk for the need for recurrent ventilatory support On BiPAP at night and high flow oxygen in the day already Critical Time Critical Time (minutes): 35 Level of Care: ICU -: 1. The care of a critical patient is a dynamic process. This note is a sales representative groceries synopsis but static in nature. The timeframe for treatments given in order is not necessarily the actual time these treatments may have been done. 2. This patient requires critical care secondary to ongoing requirements for therapy not offered or safe outside the critical care environment. Transfer to a lower level of care will result in altered life or limb morbidity and mortality. 3. Multidisciplinary rounds completed. 4. ABCDE bundle addressed.
--- NOTE | 2019-05-17 16:08 | RADIOLOGY REPORT (SQ) ---
EXAM DESCRIPTION: PICC INSERTION; U/S GUIDE FOR VASCULAR ACCESS COMPLETED DATE/TIME: 05/17/2019 3:48 pm REASON FOR STUDY: poor access; POOR IV ACCESS COMPARISON: None. FLUOROSCOPY TIME: None. 4 images saved to PACS. TECHNIQUE: Fluoroscopic and ultrasound guided PICC placement. LIMITATIONS: None. PROCEDURE: After written consent and assessment were obtained, the patient was brought into the fluo roscopy room and placed supine on the table. Ultrasound evaluation of potential access sites were per formed. After successfully identifying a patent right basilic vein, the right arm was prepped and horacio ped in a sterile fashion along with the ultrasound probe. The entry site was anesthetized with 1% lid ocaine. A 21 gauge 7 cm needle was advanced through the skin and into the basilic vein under live ult rasound guidance. An ultrasound image was saved to PACS confirming access site. A .018 guide wire w as then inserted through the needle and into the venous system. The needle was then removed and an 11 blade scalpel was used to make a 1cm skin incision. A 5 fr peel-away sheath was advanced over the w rohit and into the venous system. A measurement was then made using the existing wire and live fluorosc opic guidance. The wire was then removed and trimmed. The PICC was advanced through the peel-away she ath and into the venous system. The peel-away sheath was removed and the catheter was adhered to the patients arm with a stat lock. The catheter was then aspirated and flushed and a sterile bandage was placed over the access site. A portable chest x-ray was saved to PACS confirming the catheter tip wi thin the superior vena cava. IMPRESSION: SUCCESSFUL PLACEMENT OF A 5 FR DUAL LUMEN 28 CM PICC IN THE RIGHT BASILIC VEIN. COMMENT: Patient medication list reviewed: Yes- Quality ID# 130:Eligible professional attests to doc umenting in the medical record they obtained, updated, or reviewed the patient's current medications. . Quality ID 145: Final reports for procedures using fluoroscopy that document radiation exposure ann roxanna, or exposure time and number of fluorographic images (if radiation exposure indices are not avail able) Quality ID #76: The patient was prepped and draped using maximum sterile barrier technique including cap, mask, sterile gown, sterile gloves, a large sterile sheet, hand hygiene, and 2% Chlorhexidine fo r cutaneous antisepsis. When ultrasound is used, sterile ultrasound techniques are followed requiring sterile gel and sterile probes. TECHNICAL DOCUMENTATION: JOB ID: [id number] 2010 [employer]- All Rights Reserved Reading location - IP/workstation name: [email or web address]
[2019-05-17 20:37] LABS: ARTERIAL BLOOD BASE EXCESS 6.7 mmol/L; ARTERIAL BLOOD H2CO3 1.68 mmol/L (1.05-1.35); ARTERIAL BLOOD HCO3 32.8 mmol/L (20-24); ARTERIAL BLOOD PCO2 55.9 mmHg (35-45); ARTERIAL BLOOD PH 7.39 (7.35-7.45); ARTERIAL BLOOD PO2 64.9 mmHg (80-100); ARTERIAL BLOOD TOTAL CO2 34.5 mmol/L (21-25)
[2019-05-17] MEDS: MELATONIN 5 MG TABLET PO SCH (21:24)
[2019-05-17] MEDS: ZOLPIDEM TARTRATE 5 MG TABLET PO SCH (21:24)
[2019-05-17] MEDS: ATORVASTATIN CALCIUM 20 MG TABLET PO SCH (22:15)
[2019-05-18] MEDS: MORPHINE SULFATE 10 MG/ML INJ IV PRN ×5 (00:08→22:37)
[2019-05-18] MEDS: IPRATROPIUM/ALBUTEROL 0.5-2.5 MG/3 ML AMPUL NEB SCH ×4 (02:16→20:16)
[2019-05-18 03:44] LABS: HEMATOCRIT 24.6 % (36.0-47.0); MEAN CORPUSCULAR HEMOGLOBIN 26.5 pg (27.0-33.4); MEAN CORPUSCULAR HGB CONC 31.2 g/dL (32.0-36.0); MEAN CORPUSCULAR VOLUME 85 fl (80-97); PLATELET COUNT 287 10^3/uL (150-450); RED BLOOD COUNT 2.89 10^6/uL (3.72-5.28); RED CELL DISTRIBUTION WIDTH 19.6 % (11.5-14.0); WHITE BLOOD COUNT 15.3 10^3/uL (4.0-10.5)
[2019-05-18 03:46] LABS: HEMOGLOBIN 7.7 g/dL (12.0-15.5)
[2019-05-18 03:53] LABS: BLOOD UREA NITROGEN 37 mg/dL (7-20); CALCIUM 8.4 mg/dL (8.4-10.2); CHLORIDE 103 mmol/L (98-107); GLUCOSE 81 mg/dL (75-110); POTASSIUM 3.9 mmol/L (3.6-5.0)
[2019-05-18 04:30] LABS: CARBON DIOXIDE 34 mmol/L (22-30)
[2019-05-18 04:31] LABS: ANION GAP 2 (5-19)
[2019-05-18] MEDS: MINERAL OIL/PETROLATUM,WHITE OPH OINT 3.5 GM OU SCH ×2 (05:14→19:54)
[2019-05-18] MEDS: LEVOTHYROXINE SODIUM 0.05 MG TABLET PO SCH (05:15)
[2019-05-18] MEDS: CEFEPIME 1 GM/D5W RTU 1 GM/50 ML RTUPB IV SCH ×3 (05:15→21:06)
[2019-05-18] MEDS: PANTOPRAZOLE SODIUM 20 MG TABLET.DR PO SCH (05:15)
[2019-05-18] MEDS: ROPINIROLE HCL 2 MG TABLET PO SCH (05:15)
[2019-05-18] MEDS: HYDROCORTISONE SOD SUCCINATE INJ/PF 100 MG/2 ML SDV IV SCH ×2 (05:15→17:40)
[2019-05-18] MEDS ORDERED: NORMAL SALINE 10 ML SDV (AFTER EACH USE) IV PRN (09:00)
--- NOTE | 2019-05-18 09:18 | RADIOLOGY REPORT (SQ) ---
EXAM DESCRIPTION: CHEST SINGLE VIEW COMPLETED DATE/TIME: 05/18/2019 9:09 am REASON FOR STUDY: pneumonia COMPARISON: 05/17/2019 EXAM PARAMETERS: NUMBER OF VIEWS: One view. TECHNIQUE: Single frontal radiographic view of the chest acquired. RADIATION DOSE: NA LIMITATIONS: None. FINDINGS: LUNGS AND PLEURA: Extensive bilateral airspace disease most marked in the right upper lobe and right base. There has been significant improvement when compared to yesterday. Persistent pleu ral effusions. MEDIASTINUM AND HILAR STRUCTURES: No masses. Contour normal. HEART AND VASCULAR STRUCTURES: Stable in appearance. BONES: No acute findings. HARDWARE: Battery pack and leads are unchanged. OTHER: No other significant finding. IMPRESSION: Extensive diffuse bilateral airspace disease right greater than left. There has been si gnificant improvement from prior study. TECHNICAL DOCUMENTATION: JOB ID: [id number] 2010 [employer]- All Rights Reserved Reading location - IP/workstation name: [email or web address]
[2019-05-18] MEDS ORDERED: NORMAL SALINE 10 ML SDV (SCHEDULED) IV SCH (10:00)
[2019-05-18] MEDS: INSULIN REG, HUMAN 100 UNIT/ML 3 ML VIAL (PYX) SUBCUT SCH ×4 (10:28→21:12)
[2019-05-18] MEDS: ASPIRIN 81 MG TABLET, CHEWABLE PO SCH (10:29)
[2019-05-18] MEDS: CITALOPRAM HYDROBROMIDE 20 MG TABLET PO SCH (10:29)
[2019-05-18] MEDS: BUSPIRONE HCL 10 MG TABLET PO SCH (10:29)
[2019-05-18] MEDS: CYANOCOBALAMIN (VITAMIN B-12) 1,000 MCG TABLET PO SCH (10:30)
[2019-05-18] MEDS: ROFLUMILAST 500 MCG TABLET PO SCH (10:30)
[2019-05-18] MEDS: MIDODRINE HCL 5 MG TABLET PO SCH (10:30)
[2019-05-18] MEDS: APIXABAN 5 MG TABLET PO SCH (10:30)
[2019-05-18] MEDS: LEVOFLOXACIN 500 MG/D5W RTU 500 MG/100 ML RTUPB IV SCH (11:05)
[2019-05-18] MEDS ORDERED: LIDOCAINE 1% INJ-PF (10 MG/ML) 30 ML SDV ONE (13:10)
[2019-05-18] MEDS ORDERED: ETOMIDATE INJ/PF 20 MG/10 ML SDV IV ONE (13:11)
[2019-05-18] MEDS ORDERED: DEXMEDETOMIDINE IN 0.9 % NACL 400 MCG/100 ML RTUPB IV ONE (13:34)
[2019-05-18] MEDS ORDERED: VANCOMYCIN HCL INJ 1000 MG VIAL IV ONE (13:38)
[2019-05-18] MEDS ORDERED: ACETAMINOPHEN 325 MG TABLET NG PRN (13:38)
--- NOTE | 2019-05-18 13:44 | Operative Report ---
Bedside Procedure - History of Present Illness Indication for Procedure: resp failure Date: 05/05/19 Provider: HA KHANNA - 69-year-old white female with severe COPD and progressive pneumonia. Meredith at length with the family and the patient today. Overall pharynx was anesthetized with 20 cc of 1% lidocaine swish and swallow. A #8 endotracheal tube was introduced using the glide scope after 20 mg etomidate was given IV. She did have some purulent secretions through the ET tube which she was clearly not coughing up. These were cultured. The tube was secured at 24-25 at the lips with good breath sounds on both sides and good color change of the CO2 monitor. Procedure was well-tolerated chest x-ray is pending.
[2019-05-18] MEDS ORDERED: PHARMACY COMMUNICATION ORDER MC NR (13:45)
[2019-05-18] MEDS: DEXMEDETOMIDINE IN 0.9 % NACL 400 MCG/100 ML RTUPB IV PRN ×4 (13:45→22:37)
--- NOTE | 2019-05-18 13:52 | PDOC CRITICAL CARE PROG REPORT ---
General Date:: 05/18/19 Resuscitation Status: Full Code Medical Power of Care Support Representative: Wang Events in the past 12 to 24 Hours:: 69-year-old white female with severe COPD and pneumonia with hypoxia and tachypnea. She is back on high flow oxygen and her chest x-ray brings up a question of persistent or worsening infiltrates but WBC is down today. Labored on BiPAP and appears to be tiring out; she states she is more short of breath today. Overall p.o. intake is poor. Finally I did discuss her wishes with her today and she would like to remain a full code; I then discussed it with 2 sons at length and we agreed to proceed with intubation today. Reason for ICU Addmission:: Doing better, ready to downgrade. Physical Exam Vital Signs: Temp Pulse Resp BP Pulse Ox 97.8 F 82 24 H 135/78 H 94 05/18/19 05:00 05/18/19 08:00 05/18/19 12:40 05/18/19 12:03 05/18/19 12:40 Intake & Output 05/17/19 05/18/19 05/19/19 06:59 06:59 06:59 Intake Total 450 250 Output Total 200 200 Balance 250 50 Weight 92.4 kg 92 kg Weight/Height Weight 92 kg Height 5 ft 5 in General appearance: PRESENT: obese Head exam: PRESENT: normocephalic Eye exam: PRESENT: EOMI, PERRLA. ABSENT: conjunctival injection Mouth exam: PRESENT: dry mucosa Neck exam: ABSENT: JVD, lymphadenopathy, thyromegaly Respiratory exam: PRESENT: accessory muscle use, rales, tachypnea Cardiovascular exam: PRESENT: RRR Pulses: PRESENT: +1 pedal pulses bilateral GI/Abdominal exam: PRESENT: soft. ABSENT: tenderness Neurological exam: PRESENT: alert, awake Skin exam: PRESENT: dry, warm Laboratory/Radiographs Laboratory Results: 05/18/19 03:25 05/18/19 03:25 05/17/19 05/18/19 05/18/19 19:48 03:25 03:25 WBC 15.3 H RBC 2.89 L Hgb 7.7 L Hct 24.6 L MCV 85 MCH 26.5 L MCHC 31.2 L RDW 19.6 H Plt Count 287 Carbonic Acid 1.68 H HCO3/H2CO3 Ratio 19:1 ABG pH 7.39 ABG pCO2 55.9 H ABG pO2 64.9 L ABG HCO3 32.8 H ABG O2 Saturation 92.0 L ABG Base Excess 6.7 FiO2 55% Sodium 139.2 Potassium 3.9 Chloride 103 Carbon Dioxide 34 H Anion Gap 2 L BUN 37 H Creatinine 0.82 Est GFR ( Amer) > 60 Glucose 81 Calcium 8.4 04/22/19 04/27/19 23:10 04:20 Troponin I < 0.012 NT-Pro-B Natriuret Pep 1520 H 705 H Impressions: Chest CT 05/10/19 00:00 IMPRESSION: Cardiomegaly with pleural effusions and bilateral pneumonia superimposed on emphysema. KUB X-Ray 05/12/19 00:00 IMPRESSION: Feeding tube in the mid stomach. Interventional Vascular Procedure 05/17/19 00:00 IMPRESSION: SUCCESSFUL PLACEMENT OF A 5 FR DUAL LUMEN 28 CM PICC IN THE RIGHT BASILIC VEIN. PICC Line Insertion 05/17/19 00:00 IMPRESSION: SUCCESSFUL PLACEMENT OF A 5 FR DUAL LUMEN 28 CM PICC IN THE RIGHT BASILIC VEIN. Chest X-Ray 05/18/19 07:45 IMPRESSION: Extensive diffuse bilateral airspace disease right greater than left. There has been significant improvement from prior study. Assessment and Plan - Diagnosis (1) COPD (chronic obstructive pulmonary disease) Qualifiers: COPD type: COPD with acute lower respiratory infection Qualified Code(s): J44.0 - Chronic obstructive pulmonary disease with (acute) lower respiratory infection Is this a current diagnosis for this admission?: Yes Plan: Impression: Persistent recurrent or a new pneumonia Very severe COPD Multiple hospitalizations recently This was all addressed with the patient and her family She has progressed and noninvasive ventilation is not working Plan: She has been intubated Chest x-ray pending Vent set up Sputum culture obtained Vancomycin 1500 mg IV today Levaquin and Cefepime were started just 2 days ago NG feeds (2) Pneumonia Qualifiers: Pneumonia type: due to unspecified organism Laterality: right Lung location: lower lobe of lung Qualified Code(s): J18.9 - Pneumonia, unspecified organism Is this a current diagnosis for this admission?: Yes Critical Time Critical Time (minutes): 50 Level of Care: ICU -: 1. The care of a critical patient is a dynamic process. This note is a care support representative synopsis but static in nature. The timeframe for treatments given in order is not necessarily the actual time these treatments may have been done. 2. This patient requires critical care secondary to ongoing requirements for therapy not offered or safe outside the critical care environment. Transfer to a lower level of care will result in altered life or limb morbidity and mortality. 3. Multidisciplinary rounds completed. 4. ABCDE bundle addressed.
[2019-05-18] MEDS ORDERED: ROPINIROLE HCL 2 MG TABLET NG SCH (14:00)
[2019-05-18 15:13] LABS: ARTERIAL BLOOD BASE EXCESS 8.3 mmol/L; ARTERIAL BLOOD H2CO3 1.59 mmol/L (1.05-1.35); ARTERIAL BLOOD HCO3 33.7 mmol/L (20-24); ARTERIAL BLOOD O2 SATURATION 97.1 % (94-98); ARTERIAL BLOOD PCO2 52.7 mmHg (35-45); ARTERIAL BLOOD PH 7.42 (7.35-7.45); ARTERIAL BLOOD PO2 92.2 mmHg (80-100); ARTERIAL BLOOD TOTAL CO2 35.3 mmol/L (21-25)
[2019-05-18 15:18] LABS: ARTERIAL BLOOD FIO2 60%
--- NOTE | 2019-05-18 15:26 | RADIOLOGY REPORT (SQ) ---
EXAM DESCRIPTION: CHEST SINGLE VIEW COMPLETED DATE/TIME: 05/18/2019 3:16 pm REASON FOR STUDY: intubation COMPARISON: Earlier the same day. NUMBER OF VIEWS: One view. TECHNIQUE: Single frontal radiographic image of the chest acquired. LIMITATIONS: None. FINDINGS: LUNGS AND PLEURA: Extensive bowel airspace disease right greater than left. Endotracheal tube and NG tube have been added. Endotracheal tube lies approximately 3.7 cm above the fredy. NG tube tip is not seen but is below the GE junction. Persistent small effusions. MEDIASTINUM AND HILAR STRUCTURES: Stable heart size and mediastinal structures. HEART AND VASCULAR STRUCTURES: Stable appearance. BONES: No acute findings. HARDWARE: Battery pack and leads remain in place. OTHER: No other significant finding. IMPRESSION: Interval placement of endotracheal tube and NG tube. No other significant changes. TECHNICAL DOCUMENTATION: JOB ID: [id number] 2010 [employer]- All Rights Reserved Reading location - IP/workstation name: [email or web address]
[2019-05-18] MEDS: MIDODRINE HCL 5 MG TABLET NG SCH ×2 (16:39→17:41)
--- NOTE | 2019-05-18 16:47 | RADIOLOGY REPORT (SQ) ---
EXAM DESCRIPTION: KUB/ABDOMEN (SINGLE VIEW) COMPLETED DATE/TIME: 05/18/2019 4:32 pm REASON FOR STUDY: replacement of dobhoff COMPARISON: 05/12/2019 NUMBER OF VIEWS: One view. TECHNIQUE: Supine radiographic image of the abdomen acquired. LIMITATIONS: None. FINDINGS: BOWEL GAS PATTERN: Normal bowel gas pattern. No dilated loops. CALCIFICATIONS: No suspicious calcifications. SOFT TISSUES: No gross mass or suggestion of organomegaly. HARDWARE: Replacement of the Dobhoff catheter since the previous examination. The tip appears to be coiled in the region of the distal esophagus. BONES: No acute fracture. No worrisome bone lesions. OTHER: No other significant finding. IMPRESSION: 1. Replacement of the Dobhoff catheter since the prior study dated 05/12/2019. The tip appears to be coiled in the region of the distal esophagus. Correlation and repositioning suggested. COMMENT: 1. The results of this examination were discussed with the patient's nurse on 05/18/2019 at 16:41 hours. TECHNICAL DOCUMENTATION: JOB ID: [id number] 2010 [employer]- All Rights Reserved Reading location - IP/workstation name: [email or web address]
--- NOTE | 2019-05-18 17:35 | RADIOLOGY REPORT (SQ) ---
EXAM DESCRIPTION: KUB/ABDOMEN (SINGLE VIEW) COMPLETED DATE/TIME: 05/18/2019 5:19 pm REASON FOR STUDY: replacement of Dobhoff with NGT. Check for placem COMPARISON: AP view of the abdomen from 05/18/2019. NUMBER OF VIEWS: One view. TECHNIQUE: Supine radiographic image of the abdomen acquired. LIMITATIONS: None. FINDINGS: BOWEL GAS PATTERN: No dilated loops of bowel. CALCIFICATIONS: None. SOFT TISSUES: No abnormality. HARDWARE: The tip and side hole of the enteric tube project past the gastroesophageal junction and wi thin the gastric lumen. BONES: No acute findings. OTHER: Bilateral below are interstitial opacities. IMPRESSION: The tip and side hole of the enteric tube project within the gastric lumen. TECHNICAL DOCUMENTATION: JOB ID: [id number] 2010 [employer]- All Rights Reserved Reading location - IP/workstation name: [email or web address]
[2019-05-18] MEDS: VANCOMYCIN HCL 750 MG in DEXTROSE 5%-WATER 250 ML IV SCH (17:39)
[2019-05-18] MEDS: APIXABAN 5 MG TABLET NG SCH (17:41)
[2019-05-18] MEDS ORDERED: MORPHINE SULFATE 10 MG/ML INJ ONE (19:12)
[2019-05-18] MEDS: ATORVASTATIN CALCIUM 20 MG TABLET NG SCH (21:06)
[2019-05-18] MEDS: BUSPIRONE HCL 10 MG TABLET NG SCH (21:06)
[2019-05-18] MEDS ORDERED: MELATONIN 5 MG TABLET NG SCH (22:00)
[2019-05-18] MEDS ORDERED: ZOLPIDEM TARTRATE 5 MG TABLET NG SCH (22:00)
[2019-05-19] MEDS: MORPHINE SULFATE 10 MG/ML INJ IV PRN ×3 (00:44→05:46)
[2019-05-19] MEDS: DEXMEDETOMIDINE IN 0.9 % NACL 400 MCG/100 ML RTUPB IV PRN ×5 (01:49→23:07)
[2019-05-19] MEDS: IPRATROPIUM/ALBUTEROL 0.5-2.5 MG/3 ML AMPUL NEB SCH ×4 (02:05→20:58)
[2019-05-19 04:50] LABS: ABSOLUTE EOSINOPHILS # (AUTO) 0.1 10^3/uL (0.0-0.6); ABSOLUTE LYMPHOCYTES (AUTO) 0.6 10^3/uL (0.5-4.7); ABSOLUTE MONOCYTES (AUTO) 0.6 10^3/uL (0.1-1.4); ABSOLUTE NEUT (AUTO) 9.7 10^3/uL (1.7-8.2); BASOPHILS % (AUTO) 0.2 % (0-2); EOSINOPHILS % (AUTO) 1.2 % (0-6); HEMATOCRIT 23.5 % (36.0-47.0); LYMPHOCYTES % (AUTO) 5.6 % (13-45); MEAN CORPUSCULAR HEMOGLOBIN 26.3 pg (27.0-33.4); MEAN CORPUSCULAR HGB CONC 30.8 g/dL (32.0-36.0); MEAN CORPUSCULAR VOLUME 86 fl (80-97); MONOCYTES % (AUTO) 5.6 % (3-13); PLATELET COUNT 259 10^3/uL (150-450); RED BLOOD COUNT 2.75 10^6/uL (3.72-5.28); RED CELL DISTRIBUTION WIDTH 19.1 % (11.5-14.0); SEGMENTED NEUTROPHILS % (AUTO) 87.4 % (42-78); TOTAL CELLS COUNTED % (AUTO) 100 %; WHITE BLOOD COUNT 11.1 10^3/uL (4.0-10.5)
[2019-05-19 04:52] LABS: HEMOGLOBIN 7.2 g/dL (12.0-15.5)
[2019-05-19 05:13] LABS: BLOOD UREA NITROGEN 35 mg/dL (7-20); CALCIUM 7.6 mg/dL (8.4-10.2); CARBON DIOXIDE 32 mmol/L (22-30); CHLORIDE 106 mmol/L (98-107); GLUCOSE 155 mg/dL (75-110); POTASSIUM 4.2 mmol/L (3.6-5.0)
[2019-05-19 05:21] LABS: ANION GAP 2 (5-19)
[2019-05-19] MEDS: CEFEPIME 1 GM/D5W RTU 1 GM/50 ML RTUPB IV SCH ×3 (05:45→21:14)
[2019-05-19] MEDS: HYDROCORTISONE SOD SUCCINATE INJ/PF 100 MG/2 ML SDV IV SCH ×2 (05:45→17:15)
[2019-05-19] MEDS: VANCOMYCIN HCL 750 MG in DEXTROSE 5%-WATER 250 ML IV SCH ×2 (05:46→17:15)
[2019-05-19] MEDS: LEVOTHYROXINE SODIUM 0.05 MG TABLET NG SCH (05:46)
[2019-05-19] MEDS ORDERED: PANTOPRAZOLE SODIUM 40 MG PACKET.DR NG SCH (06:00)
[2019-05-19] MEDS ORDERED: PROPOFOL 1,000 MG/100 ML INFUS..BTL IV ONE (07:29)
[2019-05-19] MEDS: PROPOFOL 1,000 MG/100 ML INFUS..BTL IV PRN ×3 (07:35→17:07)
[2019-05-19] MEDS ORDERED: ROFLUMILAST 500 MCG TABLET NG SCH (10:00)
[2019-05-19] MEDS: INSULIN REG, HUMAN 100 UNIT/ML 3 ML VIAL (PYX) SUBCUT SCH ×4 (10:55→21:19)
[2019-05-19] MEDS: LEVOFLOXACIN 500 MG/D5W RTU 500 MG/100 ML RTUPB IV SCH (12:05)
[2019-05-19] MEDS: ASPIRIN 81 MG TABLET, CHEWABLE NG SCH (12:14)
[2019-05-19] MEDS: CYANOCOBALAMIN (VITAMIN B-12) 1,000 MCG TABLET NG SCH (12:14)
[2019-05-19] MEDS: CITALOPRAM HYDROBROMIDE 20 MG TABLET NG SCH (12:15)
[2019-05-19] MEDS: BUSPIRONE HCL 10 MG TABLET NG SCH ×2 (12:15→21:14)
[2019-05-19] MEDS: MIDODRINE HCL 5 MG TABLET NG SCH ×3 (12:15→18:34)
[2019-05-19] MEDS: APIXABAN 5 MG TABLET NG SCH ×2 (12:15→17:23)
--- NOTE | 2019-05-19 15:14 | PDOC CRITICAL CARE PROG REPORT ---
General Date:: 05/19/19 Resuscitation Status: Full Code Medical Power of Maintenance Superintendent: Sons Events in the past 12 to 24 Hours:: 69-year-old white female with severe COPD and pneumonia with hypoxia and tachypnea. She required reintubation yesterday for progressive pneumonia but WBC is down today with addition of vancomycin. Gm stain and sputum culture are still pending. She is tolerating feeds well and is not difficult to ventilate or oxygenate. Physical Exam Vital Signs: Temp Pulse Resp BP Pulse Ox 99.5 F 80 15 107/71 95 05/19/19 12:00 05/19/19 13:09 05/19/19 13:09 05/19/19 12:00 05/19/19 13:09 Intake & Output 05/18/19 05/19/19 05/20/19 06:59 06:59 06:59 Intake Total 250 1279 427 Output Total 200 640 245 Balance 50 639 182 Weight 92 kg 90.8 kg Weight/Height Weight 90.8 kg Height 5 ft 5 in General appearance: PRESENT: no acute distress, obese Eye exam: PRESENT: EOMI, PERRLA. ABSENT: conjunctival injection Mouth exam: PRESENT: neck supple Neck exam: ABSENT: JVD, lymphadenopathy, thyromegaly Respiratory exam: PRESENT: rales Cardiovascular exam: PRESENT: RRR GI/Abdominal exam: PRESENT: soft. ABSENT: tenderness Extremities exam: ABSENT: pedal edema Neurological exam: PRESENT: altered - Orally intubated and sedated Skin exam: PRESENT: dry, warm Laboratory/Radiographs Laboratory Results: 05/19/19 04:33 05/19/19 04:33 05/18/19 05/19/19 05/19/19 15:07 04:33 04:33 WBC 11.1 H RBC 2.75 L Hgb 7.2 L Hct 23.5 L MCV 86 MCH 26.3 L MCHC 30.8 L RDW 19.1 H Plt Count 259 Seg Neutrophils % 87.4 H Carbonic Acid 1.59 H HCO3/H2CO3 Ratio 21:1 ABG pH 7.42 ABG pCO2 52.7 H ABG pO2 92.2 ABG HCO3 33.7 H ABG O2 Saturation 97.1 ABG Base Excess 8.3 FiO2 60% Sodium 140.0 Potassium 4.2 Chloride 106 Carbon Dioxide 32 H Anion Gap 2 L BUN 35 H Creatinine 0.82 Est GFR ( Amer) > 60 Glucose 155 H Calcium 7.6 L 05/18/19 13:30 Sputum Gram Stain - Final 05/18/19 13:30 Sputum Sputum Culture - Final Yeast, Not Phyllis Albicans Normal Rhea Absent 04/22/19 04/27/19 23:10 04:20 Troponin I < 0.012 NT-Pro-B Natriuret Pep 1520 H 705 H Impressions: Chest CT 05/10/19 00:00 IMPRESSION: Cardiomegaly with pleural effusions and bilateral pneumonia superimposed on emphysema. Interventional Vascular Procedure 05/17/19 00:00 IMPRESSION: SUCCESSFUL PLACEMENT OF A 5 FR DUAL LUMEN 28 CM PICC IN THE RIGHT BASILIC VEIN. PICC Line Insertion 05/17/19 00:00 IMPRESSION: SUCCESSFUL PLACEMENT OF A 5 FR DUAL LUMEN 28 CM PICC IN THE RIGHT BASILIC VEIN. KUB X-Ray 05/18/19 00:00 IMPRESSION: The tip and side hole of the enteric tube project within the gastric lumen. Chest X-Ray 05/18/19 07:45 IMPRESSION: Extensive diffuse bilateral airspace disease right greater than left. There has been significant improvement from prior study. Assessment and Plan - Diagnosis (1) COPD (chronic obstructive pulmonary disease) Qualifiers: COPD type: COPD with acute lower respiratory infection Qualified Code(s): J44.0 - Chronic obstructive pulmonary disease with (acute) lower respiratory infection Is this a current diagnosis for this admission?: Yes Plan: Impression: Persistent, recurrent or a new pneumonia Very severe COPD Recurrent respiratory failure Possibly responding to the addition of vancomycin Plan: Continue vancomycin dosing per pharmacy Levaquin and Cefepime were started just 3 days ago NG feeds continue also Chest x-ray and lab in a.m. (2) Pneumonia Qualifiers: Pneumonia type: due to unspecified organism Laterality: right Lung location: lower lobe of lung Qualified Code(s): J18.9 - Pneumonia, unspecified organism Is this a current diagnosis for this admission?: Yes Critical Time Critical Time (minutes): 35 Level of Care: ICU -: 1. The care of a critical patient is a dynamic process. This note is a digital sales representative synopsis but static in nature. The timeframe for treatments given in order is not necessarily the actual time these treatments may have been done. 2. This patient requires critical care secondary to ongoing requirements for therapy not offered or safe outside the critical care environment. Transfer to a lower level of care will result in altered life or limb morbidity and mortality. 3. Multidisciplinary rounds completed. 4. ABCDE bundle addressed.
[2019-05-19 17:27] LABS: HEMATOCRIT 23.4 % (36.0-47.0); MEAN CORPUSCULAR HEMOGLOBIN 26.4 pg (27.0-33.4); MEAN CORPUSCULAR HGB CONC 30.9 g/dL (32.0-36.0); MEAN CORPUSCULAR VOLUME 86 fl (80-97); PLATELET COUNT 267 10^3/uL (150-450); RED BLOOD COUNT 2.73 10^6/uL (3.72-5.28); RED CELL DISTRIBUTION WIDTH 19.3 % (11.5-14.0); WHITE BLOOD COUNT 11.9 10^3/uL (4.0-10.5)
[2019-05-19 17:45] LABS: BLOOD UREA NITROGEN 35 mg/dL (7-20); GLUCOSE 132 mg/dL (75-110); POTASSIUM 4.1 mmol/L (3.6-5.0)
[2019-05-19 17:48] LABS: ABSOLUTE LYMPHOCYTES# (MANUAL) 0.7 10^3/uL (0.5-4.7); ABSOLUTE MONOCYTES # (MANUAL) 0.5 10^3/uL (0.1-1.4); BAND NEUTROPHILS % (MANUAL) 1 % (3-5); BASOPHILS % (MANUAL) 0 % (0-2); EOSINOPHILS % (MANUAL) 2 % (0-6); LYMPHOCYTES % (MANUAL) 6 % (13-45); MONOCYTES % (MANUAL) 4 % (3-13); NUCLEATED RED BLOOD CELLS 1 /100 WBC (0); SEGMENTED NEUTROPHILS % (MAN) 87 % (42-78); TOTAL CELLS COUNTED 100
[2019-05-19 17:49] LABS: ANISOCYTOSIS 2+; OVALOCYTES SLIGHT; POIKILOCYTOSIS SLIGHT
[2019-05-19 17:50] LABS: PLATELET COMMENT ADEQUATE; TEAR DROP CELLS SLIGHT
[2019-05-19 17:51] LABS: CARBON DIOXIDE 34 mmol/L (22-30); CHLORIDE 103 mmol/L (98-107); HEMOGLOBIN 7.2 g/dL (12.0-15.5)
[2019-05-19 18:01] LABS: ANION GAP 3 (5-19)
[2019-05-19] MEDS: ATORVASTATIN CALCIUM 20 MG TABLET NG SCH (21:14)
[2019-05-19] MEDS: PANTOPRAZOLE SODIUM 40 MG PACKET.DR NG SCH (21:15)
[2019-05-20] MEDS: IPRATROPIUM/ALBUTEROL 0.5-2.5 MG/3 ML AMPUL NEB SCH ×4 (01:53→20:23)
[2019-05-20] MEDS: CEFEPIME 1 GM/D5W RTU 1 GM/50 ML RTUPB IV SCH ×3 (05:48→21:25)
[2019-05-20] MEDS: LEVOTHYROXINE SODIUM 0.05 MG TABLET NG SCH (05:48)
[2019-05-20] MEDS: HYDROCORTISONE SOD SUCCINATE INJ/PF 100 MG/2 ML SDV IV SCH ×2 (05:48→18:44)
[2019-05-20] MEDS: VANCOMYCIN HCL 750 MG in DEXTROSE 5%-WATER 250 ML IV SCH ×2 (05:54→18:45)
[2019-05-20] MEDS: PROPOFOL 1,000 MG/100 ML INFUS..BTL IV PRN ×3 (06:12→20:59)
[2019-05-20] MEDS: DEXMEDETOMIDINE IN 0.9 % NACL 400 MCG/100 ML RTUPB IV PRN ×3 (06:13→20:59)
[2019-05-20 06:34] LABS: VANCOMYCIN,TROUGH 14.5 ug/mL (5.0-20.0)
--- NOTE | 2019-05-20 06:51 | RADIOLOGY REPORT (SQ) ---
Chest one view on 05/20/2019 at 5:59 AM CLINICAL INDICATION: Intubated, respiratory failure COMPARISON: 05/18/2019 FINDINGS: ET tube tip is in the mid thoracic trachea. NG tube extends below the diaphragm. Single lead left subclavian pacemaker tip is in the right ventricle. Right-sided PICC line tip is in the SVC. Mild cardiomegaly is noted. There is stable volume loss on the right. There are stable right greater than left opacities. Much of this may represent chronic underlying interstitial lung disease although favor component of asymmetric edema and/or pneumonia. IMPRESSION: No significant change in the appearance of the chest.
[2019-05-20] MEDS: INSULIN REG, HUMAN 100 UNIT/ML 3 ML VIAL (PYX) SUBCUT SCH ×3 (08:04→18:45)
[2019-05-20 08:32] LABS: HEMATOCRIT 23.6 % (36.0-47.0); MEAN CORPUSCULAR HGB CONC 31.7 g/dL (32.0-36.0); MEAN CORPUSCULAR VOLUME 85 fl (80-97); PLATELET COUNT 251 10^3/uL (150-450); RED BLOOD COUNT 2.77 10^6/uL (3.72-5.28); RED CELL DISTRIBUTION WIDTH 19.1 % (11.5-14.0); WHITE BLOOD COUNT 15.5 10^3/uL (4.0-10.5)
[2019-05-20 08:33] LABS: HEMOGLOBIN 7.5 g/dL (12.0-15.5)
[2019-05-20] MEDS ORDERED: DEXTROSE 50%-WATER SYRINGE 25 GM/50 ML DOSE IV PRN ×2 (09:30→13:30)
[2019-05-20] MEDS ORDERED: DEXTROSE 40% GEL 15 GM TUBE X 2 PO PRN ×2 (09:30→13:30)
[2019-05-20] MEDS ORDERED: DEXTROSE 40% GEL 15 GM TUBE PO PRN ×2 (09:30→13:30)
[2019-05-20] MEDS ORDERED: GLUCAGON,HUMAN RECOMB 1 MG INJ IM PRN ×2 (09:30→13:30)
[2019-05-20] MEDS ORDERED: DEXTROSE 50%-WATER SYRINGE 12.5 GM/25 ML DOSE IV PRN ×2 (09:30→13:30)
[2019-05-20] MEDS: BUSPIRONE HCL 10 MG TABLET NG SCH ×2 (09:43→21:24)
[2019-05-20] MEDS: ASPIRIN 81 MG TABLET, CHEWABLE NG SCH (09:43)
[2019-05-20] MEDS: LEVOFLOXACIN 500 MG/D5W RTU 500 MG/100 ML RTUPB IV SCH (09:44)
[2019-05-20] MEDS: CITALOPRAM HYDROBROMIDE 20 MG TABLET NG SCH (09:44)
[2019-05-20] MEDS: APIXABAN 5 MG TABLET NG SCH ×2 (09:44→18:44)
[2019-05-20] MEDS: MIDODRINE HCL 5 MG TABLET NG SCH ×3 (09:44→18:45)
[2019-05-20] MEDS: PANTOPRAZOLE SODIUM 40 MG PACKET.DR NG SCH ×2 (09:44→21:25)
[2019-05-20] MEDS: CYANOCOBALAMIN (VITAMIN B-12) 1,000 MCG TABLET NG SCH (09:45)
--- NOTE | 2019-05-20 13:29 | PDOC CRITICAL CARE PROG REPORT ---
General Date:: 05/20/19 Resuscitation Status: Full Code Medical Power of Home Hospice Aide: Sons Events in the past 12 to 24 Hours:: 69-year-old white female with severe COPD and pneumonia with hypoxia and tachypnea. She required reintubation 2 days ago for progressive pneumonia; WBC was down today with addition of vancomycin but it is back up today. Gm stain and sputum culture are no help. She is tolerating feeds well and is not difficult to ventilate or oxygenate. PEEP has been weaned from 8-5 today and she remains comfortable. Physical Exam Vital Signs: Temp Pulse Resp BP Pulse Ox 98.6 F 80 19 100/71 97 05/20/19 12:00 05/20/19 12:00 05/20/19 12:00 05/20/19 12:00 05/20/19 12:00 Intake & Output 05/19/19 05/20/19 05/21/19 06:59 06:59 06:59 Intake Total 1279 1400 Output Total 640 800 245 Balance 639 600 -245 Weight 90.8 kg 93.4 kg Weight/Height Weight 93.4 kg Height 5 ft 5 in General appearance: PRESENT: no acute distress, obese Head exam: PRESENT: normocephalic Eye exam: PRESENT: EOMI, PERRLA. ABSENT: conjunctival injection Ear exam: ABSENT: bleeding Mouth exam: PRESENT: neck supple Neck exam: ABSENT: JVD, lymphadenopathy Respiratory exam: PRESENT: rales. ABSENT: accessory muscle use Cardiovascular exam: PRESENT: RRR GI/Abdominal exam: PRESENT: soft. ABSENT: tenderness Extremities exam: PRESENT: +1 edema Neurological exam: PRESENT: altered - Orally intubated and sedated Skin exam: PRESENT: dry, warm Laboratory/Radiographs Laboratory Results: 05/20/19 08:06 05/19/19 17:00 05/19/19 05/19/19 05/20/19 17:00 17:00 08:06 WBC 11.9 H 15.5 H RBC 2.73 L 2.77 L Hgb 7.2 L 7.5 L Hct 23.4 L 23.6 L MCV 86 85 MCH 26.4 L 27.0 MCHC 30.9 L 31.7 L RDW 19.3 H 19.1 H Plt Count 267 251 Seg Neutrophils % Not Reportable Sodium 139.9 Potassium 4.1 Chloride 103 Carbon Dioxide 34 H Anion Gap 3 L BUN 35 H Creatinine 0.90 Est GFR ( Amer) > 60 Glucose 132 H Calcium 8.0 L 05/18/19 13:30 Sputum Gram Stain - Final 05/18/19 13:30 Sputum Sputum Culture - Final Yeast, Not Phyllis Albicans Normal Rhea Absent 04/22/19 04/27/19 23:10 04:20 Troponin I < 0.012 NT-Pro-B Natriuret Pep 1520 H 705 H Impressions: Chest CT 05/10/19 00:00 IMPRESSION: Cardiomegaly with pleural effusions and bilateral pneumonia superimposed on emphysema. Interventional Vascular Procedure 05/17/19 00:00 IMPRESSION: SUCCESSFUL PLACEMENT OF A 5 FR DUAL LUMEN 28 CM PICC IN THE RIGHT BASILIC VEIN. PICC Line Insertion 05/17/19 00:00 IMPRESSION: SUCCESSFUL PLACEMENT OF A 5 FR DUAL LUMEN 28 CM PICC IN THE RIGHT BASILIC VEIN. KUB X-Ray 05/18/19 00:00 IMPRESSION: The tip and side hole of the enteric tube project within the gastric lumen. Chest X-Ray 05/20/19 00:00 IMPRESSION: No significant change in the appearance of the chest. Assessment and Plan - Diagnosis (1) COPD (chronic obstructive pulmonary disease) Qualifiers: COPD type: COPD with acute lower respiratory infection Qualified Code(s): J44.0 - Chronic obstructive pulmonary disease with (acute) lower respiratory infection Is this a current diagnosis for this admission?: Yes Plan: Impression: Persistent, recurrent or a new pneumonia Very severe COPD Recurrent respiratory failure Possibly responding to the addition of vancomycin Plan: Continue vancomycin dosing per pharmacy Levaquin and Cefepime were started just 4 days ago These may need to be adjusted given that the white count is back up NG feeds continue also Chest x-ray and lab in a.m. (2) Pneumonia Qualifiers: Pneumonia type: due to unspecified organism Laterality: right Lung location: lower lobe of lung Qualified Code(s): J18.9 - Pneumonia, unspecified organism Is this a current diagnosis for this admission?: Yes Critical Time Critical Time (minutes): 25 Level of Care: ICU
[2019-05-20] MEDS ORDERED: INSULIN REG, HUMAN 100 UNIT/ML 3 ML VIAL (PYX) SUBCUT SCH (16:00)
[2019-05-20 18:57] LABS: HEMATOCRIT 23.4 % (36.0-47.0); MEAN CORPUSCULAR HEMOGLOBIN 27.2 pg (27.0-33.4); MEAN CORPUSCULAR HGB CONC 32.1 g/dL (32.0-36.0); MEAN CORPUSCULAR VOLUME 85 fl (80-97); PLATELET COUNT 264 10^3/uL (150-450); RED BLOOD COUNT 2.76 10^6/uL (3.72-5.28); RED CELL DISTRIBUTION WIDTH 19.2 % (11.5-14.0); WHITE BLOOD COUNT 14.5 10^3/uL (4.0-10.5)
[2019-05-20 18:59] LABS: HEMOGLOBIN 7.5 g/dL (12.0-15.5)
[2019-05-20] MEDS: ATORVASTATIN CALCIUM 20 MG TABLET NG SCH (21:24)
[2019-05-21] MEDS: INSULIN REG, HUMAN 100 UNIT/ML 3 ML VIAL (PYX) SUBCUT SCH ×4 (00:09→19:01)
[2019-05-21] MEDS: IPRATROPIUM/ALBUTEROL 0.5-2.5 MG/3 ML AMPUL NEB SCH ×4 (01:57→20:22)
[2019-05-21] MEDS: DEXMEDETOMIDINE IN 0.9 % NACL 400 MCG/100 ML RTUPB IV PRN ×4 (04:27→22:47)
[2019-05-21] MEDS: PROPOFOL 1,000 MG/100 ML INFUS..BTL IV PRN ×4 (04:27→21:02)
[2019-05-21] MEDS: LEVOTHYROXINE SODIUM 0.05 MG TABLET NG SCH (05:13)
[2019-05-21] MEDS: CEFEPIME 1 GM/D5W RTU 1 GM/50 ML RTUPB IV SCH ×3 (05:15→21:09)
[2019-05-21] MEDS: VANCOMYCIN HCL 750 MG in DEXTROSE 5%-WATER 250 ML IV SCH ×2 (05:16→19:01)
[2019-05-21] MEDS: HYDROCORTISONE SOD SUCCINATE INJ/PF 100 MG/2 ML SDV IV SCH ×2 (05:16→19:01)
[2019-05-21] MEDS: BUSPIRONE HCL 10 MG TABLET NG SCH ×2 (10:40→21:09)
[2019-05-21] MEDS: LEVOFLOXACIN 500 MG/D5W RTU 500 MG/100 ML RTUPB IV SCH (10:40)
[2019-05-21] MEDS: CITALOPRAM HYDROBROMIDE 20 MG TABLET NG SCH (10:40)
[2019-05-21] MEDS: MIDODRINE HCL 5 MG TABLET NG SCH ×3 (10:40→19:04)
[2019-05-21] MEDS: PANTOPRAZOLE SODIUM 40 MG PACKET.DR NG SCH ×2 (10:40→21:09)
[2019-05-21] MEDS: ASPIRIN 81 MG TABLET, CHEWABLE NG SCH (10:40)
[2019-05-21] MEDS: CYANOCOBALAMIN (VITAMIN B-12) 1,000 MCG TABLET NG SCH (10:40)
[2019-05-21] MEDS: APIXABAN 5 MG TABLET NG SCH ×2 (10:40→19:02)
--- NOTE | 2019-05-21 13:02 | PDOC CRITICAL CARE PROG REPORT ---
General Date:: 05/21/19 Resuscitation Status: Full Code Medical Power of Fast Food Cook: Sons Events in the past 12 to 24 Hours:: 69-year-old white female with severe COPD and pneumonia with hypoxia and tachypnea. She required reintubation 3 days ago for progressive pneumonia. CXR: bilateral infiltrates persist. Gm stain and sputum culture donr at time of reintubation are no help. She is tolerating feeds well and is not difficult to ventilate or oxygenate. PEEP has been weaned from 8-5 yesterday and she remains comfortable. Physical Exam Vital Signs: Temp Pulse Resp BP Pulse Ox 98.2 F 80 16 120/83 100 05/21/19 12:00 05/21/19 12:00 05/21/19 12:00 05/21/19 12:00 05/21/19 12:00 Intake & Output 05/20/19 05/21/19 05/22/19 06:59 06:59 06:59 Intake Total 1400 1659 200 Output Total 800 1350 570 Balance 600 309 -370 Weight 93.4 kg 94.6 kg Weight/Height Weight 94.6 kg Height 5 ft 5 in General appearance: PRESENT: no acute distress, obese Eye exam: PRESENT: EOMI, PERRLA. ABSENT: conjunctival injection Ear exam: ABSENT: bleeding Neck exam: ABSENT: JVD, lymphadenopathy Respiratory exam: PRESENT: rales. ABSENT: accessory muscle use, wheezes Pulses: PRESENT: +1 pedal pulses bilateral GI/Abdominal exam: PRESENT: soft. ABSENT: tenderness Extremities exam: ABSENT: pedal edema Neurological exam: PRESENT: altered - sedated and orally intubated Laboratory/Radiographs Laboratory Results: 05/20/19 18:35 05/19/19 17:00 05/20/19 18:35 WBC 14.5 H RBC 2.76 L Hgb 7.5 L Hct 23.4 L MCV 85 MCH 27.2 MCHC 32.1 RDW 19.2 H Plt Count 264 04/22/19 04/27/19 23:10 04:20 Troponin I < 0.012 NT-Pro-B Natriuret Pep 1520 H 705 H Impressions: Chest CT 05/10/19 00:00 IMPRESSION: Cardiomegaly with pleural effusions and bilateral pneumonia superimposed on emphysema. Interventional Vascular Procedure 05/17/19 00:00 IMPRESSION: SUCCESSFUL PLACEMENT OF A 5 FR DUAL LUMEN 28 CM PICC IN THE RIGHT BASILIC VEIN. PICC Line Insertion 05/17/19 00:00 IMPRESSION: SUCCESSFUL PLACEMENT OF A 5 FR DUAL LUMEN 28 CM PICC IN THE RIGHT BASILIC VEIN. KUB X-Ray 05/18/19 00:00 IMPRESSION: The tip and side hole of the enteric tube project within the gastric lumen. Chest X-Ray 05/20/19 00:00 IMPRESSION: No significant change in the appearance of the chest. Assessment and Plan - Diagnosis (1) COPD (chronic obstructive pulmonary disease) Qualifiers: COPD type: COPD with acute lower respiratory infection Qualified Code(s): J44.0 - Chronic obstructive pulmonary disease with (acute) lower respiratory infection Is this a current diagnosis for this admission?: Yes Plan: Impression: Persistent, recurrent or a new pneumonia Very severe COPD Recurrent respiratory failure Possibly responding to the addition of vancomycin Plan: Continue vancomycin dosing per pharmacy Levaquin and Cefepime were started just 5 days ago NG feeds increased to 35/hr Lab in a.m. Discussion with sons at time of reintubation was about prognosis They understood that at approximately 2 weeks a trach would have to be considered and that would be a time to rediscuss goals I have also asked long term care social worker to look into an LTAC in the meantime (2) Pneumonia Qualifiers: Pneumonia type: due to unspecified organism Laterality: right Lung location: lower lobe of lung Qualified Code(s): J18.9 - Pneumonia, unspecified organism Is this a current diagnosis for this admission?: Yes Critical Time Critical Time (minutes): 25 Level of Care: ICU
[2019-05-21] MEDS: ATORVASTATIN CALCIUM 20 MG TABLET NG SCH (21:09)
[2019-05-22] MEDS: INSULIN REG, HUMAN 100 UNIT/ML 3 ML VIAL (PYX) SUBCUT SCH ×5 (00:31→23:57)
[2019-05-22] MEDS: IPRATROPIUM/ALBUTEROL 0.5-2.5 MG/3 ML AMPUL NEB SCH ×4 (02:05→20:26)
[2019-05-22] MEDS: PROPOFOL 1,000 MG/100 ML INFUS..BTL IV PRN ×4 (02:57→20:27)
[2019-05-22 04:46] LABS: MEAN CORPUSCULAR HEMOGLOBIN 26.1 pg (27.0-33.4); MEAN CORPUSCULAR HGB CONC 30.5 g/dL (32.0-36.0); MEAN CORPUSCULAR VOLUME 86 fl (80-97); PLATELET COUNT 305 10^3/uL (150-450); RED BLOOD COUNT 2.93 10^6/uL (3.72-5.28); RED CELL DISTRIBUTION WIDTH 19.3 % (11.5-14.0); WHITE BLOOD COUNT 14.6 10^3/uL (4.0-10.5)
[2019-05-22 05:07] LABS: BLOOD UREA NITROGEN 26 mg/dL (7-20); CALCIUM 7.7 mg/dL (8.4-10.2); CARBON DIOXIDE 31 mmol/L (22-30); GLUCOSE 172 mg/dL (75-110); PHOSPHORUS 3.1 mg/dL (2.5-4.5); POTASSIUM 4.2 mmol/L (3.6-5.0)
[2019-05-22 05:12] LABS: CHLORIDE 106 mmol/L (98-107)
[2019-05-22 05:17] LABS: ANION GAP 2 (5-19)
[2019-05-22 05:20] LABS: ABSOLUTE LYMPHOCYTES# (MANUAL) 0.6 10^3/uL (0.5-4.7); ABSOLUTE MONOCYTES # (MANUAL) 0.7 10^3/uL (0.1-1.4); BAND NEUTROPHILS % (MANUAL) 4 % (3-5); BASOPHILS % (MANUAL) 0 % (0-2); EOSINOPHILS % (MANUAL) 3 % (0-6); LYMPHOCYTES % (MANUAL) 4 % (13-45); MONOCYTES % (MANUAL) 5 % (3-13); SEGMENTED NEUTROPHILS % (MAN) 84 % (42-78); TOTAL CELLS COUNTED 100
[2019-05-22 05:21] LABS: ANISOCYTOSIS 2+; HYPOCHROMASIA 1+; PLATELET COMMENT ADEQUATE; POLYCHROMASIA 1+
[2019-05-22 05:22] LABS: HEMOGLOBIN 7.6 g/dL (12.0-15.5)
[2019-05-22] MEDS: CEFEPIME 1 GM/D5W RTU 1 GM/50 ML RTUPB IV SCH ×3 (05:42→22:08)
[2019-05-22] MEDS: HYDROCORTISONE SOD SUCCINATE INJ/PF 100 MG/2 ML SDV IV SCH ×2 (05:42→17:33)
[2019-05-22] MEDS: LEVOTHYROXINE SODIUM 0.05 MG TABLET NG SCH (05:42)
[2019-05-22] MEDS: VANCOMYCIN HCL 750 MG in DEXTROSE 5%-WATER 250 ML IV SCH ×2 (05:43→17:32)
--- NOTE | 2019-05-22 09:09 | RADIOLOGY REPORT (SQ) ---
EXAM DESCRIPTION: CHEST SINGLE VIEW IMAGES COMPLETED DATE/TIME: 05/22/2019 6:29 am REASON FOR STUDY: resp failure; f/u infiltrates COMPARISON: 05/20/2019 NUMBER OF VIEWS: One view. TECHNIQUE: Single frontal radiographic image of the chest acquired. LIMITATIONS: None. FINDINGS: LUNGS AND PLEURA: Diffuse airspace disease with more focal consolidation right upper lobe with slight improvement in the right upper lobe. No pneumothorax. MEDIASTINUM AND HEART: Stable heart size and mediastinal structures. SUPPORT DEVICES: Appropriate location without change. BONY STRUCTURES: No acute findings. HARDWARE: None. OTHER: No other significant finding. IMPRESSION: STABLE APPEARANCE OF THE CHEST. SUPPORT DEVICES UNCHANGED. Reading location - IP/workstation name: [email or web address]
[2019-05-22] MEDS: APIXABAN 5 MG TABLET NG SCH ×2 (10:00→17:33)
[2019-05-22] MEDS: PANTOPRAZOLE SODIUM 40 MG PACKET.DR NG SCH ×2 (10:00→22:09)
[2019-05-22] MEDS: CITALOPRAM HYDROBROMIDE 20 MG TABLET NG SCH (10:00)
[2019-05-22] MEDS: CYANOCOBALAMIN (VITAMIN B-12) 1,000 MCG TABLET NG SCH (10:00)
[2019-05-22] MEDS: MIDODRINE HCL 5 MG TABLET NG SCH ×3 (10:00→17:33)
[2019-05-22] MEDS: ASPIRIN 81 MG TABLET, CHEWABLE NG SCH (10:00)
[2019-05-22] MEDS: BUSPIRONE HCL 10 MG TABLET NG SCH ×2 (10:00→22:09)
[2019-05-22] MEDS: LEVOFLOXACIN 500 MG/D5W RTU 500 MG/100 ML RTUPB IV SCH (10:01)
[2019-05-22] MEDS: DEXMEDETOMIDINE IN 0.9 % NACL 400 MCG/100 ML RTUPB IV PRN ×3 (11:32→22:07)
--- NOTE | 2019-05-22 11:55 | PDOC CRITICAL CARE PROG REPORT ---
General Date:: 05/22/19 Hospital Day:: 30 Resuscitation Status: Full Code Medical Power of Ad Copy Writer: Sons Events in the past 12 to 24 Hours:: Little progress Review of systems relevant to events:: Respiratory, psychiatry. Reason for ICU Addmission:: Doing better, ready to downgrade. - Medications: Medications reviewed and adjusted accordingly: Yes Vasopressors:: None Sedation:: Propofol Physical Exam Vital Signs: Temp Pulse Resp BP Pulse Ox 99.0 F 83 23 H 150/90 H 96 05/22/19 10:00 05/22/19 10:00 05/22/19 10:00 05/22/19 10:00 05/22/19 10:00 Intake & Output 05/21/19 05/22/19 05/23/19 06:59 06:59 06:59 Intake Total 1659 1148 200 Output Total 1350 1970 140 Balance 309 -822 60 Weight 94.6 kg 94.6 kg 94.6 kg Weight/Height Weight 94.6 kg Height 5 ft 5 in General appearance: PRESENT: no acute distress, obese Head exam: PRESENT: atraumatic, normocephalic Eye exam: PRESENT: conjunctiva pink, EOMI, PERRLA. ABSENT: scleral icterus Ear exam: PRESENT: normal external ear exam Mouth exam: PRESENT: moist, tongue midline Respiratory exam: PRESENT: accessory muscle use, crackles, rhonchi, other - Using abdominal muscles. Cardiovascular exam: PRESENT: RRR. ABSENT: diastolic murmur, rubs, systolic murmur GI/Abdominal exam: PRESENT: normal bowel sounds, soft. ABSENT: distended, guarding, mass, organolmegaly, rebound, tenderness Rectal exam: PRESENT: deferred Gentrourinary exam: PRESENT: indwelling catheter Extremities exam: PRESENT: +1 edema Musculoskeletal exam: PRESENT: normal inspection Neurological exam: PRESENT: altered Skin exam: PRESENT: dry, intact, warm. ABSENT: cyanosis, rash Tubes/Lines: PRESENT: Endotracheal Tube, Nasogastic Tube Laboratory/Radiographs Laboratory Results: 05/22/19 04:17 05/22/19 04:17 05/22/19 05/22/19 04:17 04:17 WBC 14.6 H RBC 2.93 L Hgb 7.6 L Hct 25.0 L MCV 86 MCH 26.1 L MCHC 30.5 L RDW 19.3 H Plt Count 305 Seg Neutrophils % Not Reportable Sodium 139.0 Potassium 4.2 Chloride 106 Carbon Dioxide 31 H Anion Gap 2 L BUN 26 H Creatinine 0.80 Est GFR ( Amer) > 60 Glucose 172 H Calcium 7.7 L Phosphorus 3.1 Magnesium 2.1 04/22/19 04/27/19 23:10 04:20 Troponin I < 0.012 NT-Pro-B Natriuret Pep 1520 H 705 H Impressions: Chest CT 05/10/19 00:00 IMPRESSION: Cardiomegaly with pleural effusions and bilateral pneumonia superimposed on emphysema. Interventional Vascular Procedure 05/17/19 00:00 IMPRESSION: SUCCESSFUL PLACEMENT OF A 5 FR DUAL LUMEN 28 CM PICC IN THE RIGHT BASILIC VEIN. PICC Line Insertion 05/17/19 00:00 IMPRESSION: SUCCESSFUL PLACEMENT OF A 5 FR DUAL LUMEN 28 CM PICC IN THE RIGHT BASILIC VEIN. KUB X-Ray 05/18/19 00:00 IMPRESSION: The tip and side hole of the enteric tube project within the gastric lumen. All labs, radiographs, diagnostic studies and EKGs were personally reviewed: Yes In addition, reports of radiographic and diagnostic studies were read: Yes Assessment and Plan - Diagnosis (1) COPD (chronic obstructive pulmonary disease) Qualifiers: COPD type: COPD with acute lower respiratory infection Qualified Code(s): J44.0 - Chronic obstructive pulmonary disease with (acute) lower respiratory infection Is this a current diagnosis for this admission?: Yes Plan: Severe and not really improving. (2) Acute on chronic diastolic (congestive) heart failure Is this a current diagnosis for this admission?: Yes Plan: Resolved (3) Longstanding persistent atrial fibrillation Is this a current diagnosis for this admission?: Yes Plan: Chronic (4) Acute and chronic respiratory failure with hypoxia Is this a current diagnosis for this admission?: Yes Plan: With Influenza A and COPD and now with PNA it does not appear that she is rebounding. I have not heard regarding an LTAC and her premorbid depression makes this unlikely she will recover well. (5) HTN (hypertension) Qualifiers: Hypertension type: essential hypertension Qualified Code(s): I10 - Essential (primary) hypertension Is this a current diagnosis for this admission?: Yes Plan: Controlled. (6) Myelodysplasia (myelodysplastic syndrome) Is this a current diagnosis for this admission?: Yes Plan: Stable thus far. (7) Leukocytosis Qualifiers: Leukocytosis type: unspecified Qualified Code(s): D72.829 - Elevated white blood cell count, unspecified Is this a current diagnosis for this admission?: Yes Plan: Improving (8) Fever Qualifiers: Fever type: unspecified Qualified Code(s): R50.9 - Fever, unspecified Is this a current diagnosis for this admission?: Yes Plan: Resolved (9) Influenza A Is this a current diagnosis for this admission?: Yes Plan: Resolved Critical Time Critical Time (minutes): 35 Level of Care: ICU Anticipated discharge: Hospice Within: Other -: 1. The care of a critical patient is a dynamic process. This note is a desk representative synopsis but static in nature. The timeframe for treatments given in order is not necessarily the actual time these treatments may have been done. 2. This patient requires critical care secondary to ongoing requirements for therapy not offered or safe outside the critical care environment. Transfer to a lower level of care will result in altered life or limb morbidity and mortality. 3. Multidisciplinary rounds completed. 4. ABCDE bundle addressed.
--- NOTE | 2019-05-22 13:23 | RADIOLOGY REPORT (SQ) ---
EXAM DESCRIPTION: CHEST XRAY PA ONLY IMAGES COMPLETED DATE/TIME: 05/22/2019 11:21 am REASON FOR STUDY: EXAM PERFORMED ON WRONG PATIENT COMPARISON: 05/20/2019 EXAM PARAMETERS: NUMBER OF VIEWS: One view. TECHNIQUE: Single frontal radiographic view of the chest acquired. RADIATION DOSE: NA LIMITATIONS: None. FINDINGS: LUNGS AND PLEURA: Reduced volume in the right lung. Considerable opacification in the rig ht upper lobe. Bilateral lower lobe opacification with increased opacification in the right base. N o significant interval change. MEDIASTINUM AND HILAR STRUCTURES: No masses. Contour normal. HEART AND VASCULAR STRUCTURES: Heart size is borderline. BONES: No acute findings. HARDWARE: Endotracheal tube remains in place. Pacemaker. NG tube. Right-sided PICC with the tip in the superior vena cava. OTHER: No other significant finding. IMPRESSION: Borderline heart size without pancho pulmonary edema. Extensive multicentric disease, pn eumonia versus chronic changes. There is increased opacification in the right base. TECHNICAL DOCUMENTATION: JOB ID: [id number] 2010 [employer]- All Rights Reserved Reading location - IP/workstation name: [email or web address]
[2019-05-22] MEDS: ATORVASTATIN CALCIUM 20 MG TABLET NG SCH (22:09)
[2019-05-23] MEDS: PROPOFOL 1,000 MG/100 ML INFUS..BTL IV PRN ×4 (01:52→18:00)
[2019-05-23] MEDS: IPRATROPIUM/ALBUTEROL 0.5-2.5 MG/3 ML AMPUL NEB SCH ×4 (01:59→19:47)
[2019-05-23] MEDS: DEXMEDETOMIDINE IN 0.9 % NACL 400 MCG/100 ML RTUPB IV PRN ×4 (03:48→20:18)
[2019-05-23] MEDS: CEFEPIME 1 GM/D5W RTU 1 GM/50 ML RTUPB IV SCH ×2 (05:26→14:07)
[2019-05-23] MEDS: HYDROCORTISONE SOD SUCCINATE INJ/PF 100 MG/2 ML SDV IV SCH ×2 (05:26→18:00)
[2019-05-23] MEDS: LEVOTHYROXINE SODIUM 0.05 MG TABLET NG SCH (05:26)
[2019-05-23] MEDS: INSULIN REG, HUMAN 100 UNIT/ML 3 ML VIAL (PYX) SUBCUT SCH ×3 (05:27→17:42)
[2019-05-23] MEDS: VANCOMYCIN HCL 750 MG in DEXTROSE 5%-WATER 250 ML IV SCH ×2 (06:03→18:01)
[2019-05-23] MEDS: PANTOPRAZOLE SODIUM 40 MG PACKET.DR NG SCH ×2 (09:54→22:03)
[2019-05-23] MEDS: BUSPIRONE HCL 10 MG TABLET NG SCH ×2 (09:55→22:03)
[2019-05-23] MEDS: ASPIRIN 81 MG TABLET, CHEWABLE NG SCH (09:55)
[2019-05-23] MEDS: CYANOCOBALAMIN (VITAMIN B-12) 1,000 MCG TABLET NG SCH (09:55)
[2019-05-23] MEDS: LEVOFLOXACIN 500 MG/D5W RTU 500 MG/100 ML RTUPB IV SCH (09:55)
[2019-05-23] MEDS: MIDODRINE HCL 5 MG TABLET NG SCH ×3 (09:55→18:01)
[2019-05-23] MEDS: CITALOPRAM HYDROBROMIDE 20 MG TABLET NG SCH (09:55)
[2019-05-23] MEDS: APIXABAN 5 MG TABLET NG SCH ×2 (09:55→18:01)
--- NOTE | 2019-05-23 12:16 | PDOC CRITICAL CARE PROG REPORT ---
General Date:: 05/23/19 Resuscitation Status: Full Code Medical Power of Fixture Relamper: Sons Events in the past 12 to 24 Hours:: No real change Review of systems relevant to events:: Respiratory. Reason for ICU Addmission:: Reintubated for several days now. - Medications: Medications reviewed and adjusted accordingly: Yes Vasopressors:: None Sedation:: Precedex and propofol. Physical Exam Vital Signs: Temp Pulse Resp BP Pulse Ox 99.1 F 80 21 H 119/81 98 05/23/19 10:47 05/23/19 10:00 05/23/19 10:47 05/23/19 10:47 05/23/19 10:47 Intake & Output 05/22/19 05/23/19 05/24/19 06:59 06:59 06:59 Intake Total 1198 1559 80 Output Total 1970 1350 345 Balance -772 209 -265 Weight 94.6 kg 95.2 kg Weight/Height Weight 95.2 kg Height 5 ft 5 in General appearance: PRESENT: no acute distress, cooperative, hard of hearing Head exam: PRESENT: atraumatic, normocephalic Eye exam: PRESENT: conjunctiva pink, EOMI, PERRLA. ABSENT: scleral icterus Ear exam: PRESENT: normal external ear exam Mouth exam: PRESENT: moist, tongue midline Respiratory exam: PRESENT: clear to auscultation armand, crackles, decreased breath sounds Cardiovascular exam: PRESENT: RRR. ABSENT: diastolic murmur, rubs, systolic murmur GI/Abdominal exam: PRESENT: normal bowel sounds, soft. ABSENT: distended, guarding, mass, organolmegaly, rebound, tenderness Rectal exam: PRESENT: deferred Gentrourinary exam: PRESENT: indwelling catheter Extremities exam: PRESENT: full ROM. ABSENT: calf tenderness, clubbing, pedal edema Musculoskeletal exam: PRESENT: normal inspection Neurological exam: PRESENT: alert, altered, awake, CN II-XII grossly intact Psychiatric exam: PRESENT: appropriate affect, normal mood, other - When extubasted she was quite depressed over recent of and wanting no treatment or services.. ABSENT: homicidal ideation, suicidal ideation Tubes/Lines: PRESENT: Endotracheal Tube, Nasogastic Tube Laboratory/Radiographs Laboratory Results: 05/22/19 04:17 05/22/19 04:17 04/22/19 04/27/19 23:10 04:20 Troponin I < 0.012 NT-Pro-B Natriuret Pep 1520 H 705 H Impressions: Chest CT 05/10/19 00:00 IMPRESSION: Cardiomegaly with pleural effusions and bilateral pneumonia superimposed on emphysema. Interventional Vascular Procedure 05/17/19 00:00 IMPRESSION: SUCCESSFUL PLACEMENT OF A 5 FR DUAL LUMEN 28 CM PICC IN THE RIGHT BASILIC VEIN. PICC Line Insertion 05/17/19 00:00 IMPRESSION: SUCCESSFUL PLACEMENT OF A 5 FR DUAL LUMEN 28 CM PICC IN THE RIGHT BASILIC VEIN. KUB X-Ray 05/18/19 00:00 IMPRESSION: The tip and side hole of the enteric tube project within the gastric lumen. Chest X-Ray 05/22/19 00:00 IMPRESSION: Borderline heart size without pancho pulmonary edema. Extensive multicentric disease, pneumonia versus chronic changes. There is increased opacification in the right base. All labs, radiographs, diagnostic studies and EKGs were personally reviewed: Yes In addition, reports of radiographic and diagnostic studies were read: Yes Assessment and Plan - Diagnosis (1) COPD (chronic obstructive pulmonary disease) Qualifiers: COPD type: COPD with acute lower respiratory infection Qualified Code(s): J44.0 - Chronic obstructive pulmonary disease with (acute) lower respiratory infection Is this a current diagnosis for this admission?: Yes Plan: There is no wheezing but this is a factor in her continued intubation. Will keepO2 sats at > 90% and begin weaning (2) Acute on chronic diastolic (congestive) heart failure Is this a current diagnosis for this admission?: Yes Plan: Resolved (3) Longstanding persistent atrial fibrillation Is this a current diagnosis for this admission?: Yes Plan: Controlled (4) Acute and chronic respiratory failure with hypoxia Is this a current diagnosis for this admission?: Yes Plan: As above (5) HTN (hypertension) Qualifiers: Hypertension type: essential hypertension Qualified Code(s): I10 - Essential (primary) hypertension Is this a current diagnosis for this admission?: Yes Plan: Controlled (6) Myelodysplasia (myelodysplastic syndrome) Is this a current diagnosis for this admission?: Yes Plan: Stable. (7) Leukocytosis Qualifiers: Leukocytosis type: unspecified Qualified Code(s): D72.829 - Elevated white blood cell count, unspecified Is this a current diagnosis for this admission?: Yes Plan: Improved. (8) Fever Qualifiers: Fever type: unspecified Qualified Code(s): R50.9 - Fever, unspecified Is this a current diagnosis for this admission?: Yes Plan: Essentially resolved. (9) Influenza A Is this a current diagnosis for this admission?: Yes Plan: Resolved Plan Summary: Try slow vent wean. Start with FiO2 and then rate. Progress made on both Critical Time Critical Time (minutes): 35 Level of Care: ICU Anticipated discharge: Acute Rehab Within: Other -: 1. The care of a critical patient is a dynamic process. This note is a career representative synopsis but static in nature. The timeframe for treatments given in order is not necessarily the actual time these treatments may have been done. 2. This patient requires critical care secondary to ongoing requirements for therapy not offered or safe outside the critical care environment. Transfer to a lower level of care will result in altered life or limb morbidity and mortality. 3. Multidisciplinary rounds completed. 4. ABCDE bundle addressed.
[2019-05-23] MEDS: MORPHINE SULFATE 10 MG/ML INJ IV PRN (19:14)
[2019-05-23] MEDS: ATORVASTATIN CALCIUM 20 MG TABLET NG SCH (22:03)
[2019-05-24] MEDS: INSULIN REG, HUMAN 100 UNIT/ML 3 ML VIAL (PYX) SUBCUT SCH ×5 (00:12→23:22)
[2019-05-24] MEDS: PROPOFOL 1,000 MG/100 ML INFUS..BTL IV PRN (00:55)
[2019-05-24] MEDS: DEXMEDETOMIDINE IN 0.9 % NACL 400 MCG/100 ML RTUPB IV PRN ×2 (01:54→06:02)
[2019-05-24] MEDS: MORPHINE SULFATE 10 MG/ML INJ IV PRN ×3 (02:02→23:22)
[2019-05-24] MEDS: IPRATROPIUM/ALBUTEROL 0.5-2.5 MG/3 ML AMPUL NEB SCH ×4 (02:07→20:40)
[2019-05-24 04:20] LABS: HEMATOCRIT 26.2 % (36.0-47.0); MEAN CORPUSCULAR HEMOGLOBIN 25.7 pg (27.0-33.4); MEAN CORPUSCULAR HGB CONC 30.5 g/dL (32.0-36.0); MEAN CORPUSCULAR VOLUME 84 fl (80-97); PLATELET COUNT 329 10^3/uL (150-450); RED BLOOD COUNT 3.11 10^6/uL (3.72-5.28); RED CELL DISTRIBUTION WIDTH 19.8 % (11.5-14.0)
[2019-05-24 04:39] LABS: ABSOLUTE LYMPHOCYTES# (MANUAL) 1.3 10^3/uL (0.5-4.7); ABSOLUTE MONOCYTES # (MANUAL) 0.3 10^3/uL (0.1-1.4); BAND NEUTROPHILS % (MANUAL) 5 % (3-5); BASOPHILS % (MANUAL) 0 % (0-2); EOSINOPHILS % (MANUAL) 1 % (0-6); LYMPHOCYTES % (MANUAL) 8 % (13-45); MONOCYTES % (MANUAL) 2 % (3-13); SEGMENTED NEUTROPHILS % (MAN) 81 % (42-78); TOTAL CELLS COUNTED 100
[2019-05-24 04:40] LABS: ANISOCYTOSIS 2+; PLATELET COMMENT ADEQUATE; POLYCHROMASIA SLIGHT
[2019-05-24 04:41] LABS: METAMYELOCYTES % (MANUAL) 2 % (0-1); MYELOCYTES % (MANUAL) 1 % (0)
[2019-05-24 04:53] LABS: BLOOD UREA NITROGEN 27 mg/dL (7-20); CALCIUM 7.5 mg/dL (8.4-10.2); CARBON DIOXIDE 30 mmol/L (22-30); CHLORIDE 107 mmol/L (98-107); GLUCOSE 157 mg/dL (75-110); PHOSPHORUS 2.8 mg/dL (2.5-4.5); POTASSIUM 3.9 mmol/L (3.6-5.0)
[2019-05-24 05:00] LABS: ANION GAP 2 (5-19)
[2019-05-24] MEDS: HYDROCORTISONE SOD SUCCINATE INJ/PF 100 MG/2 ML SDV IV SCH ×2 (05:48→18:13)
[2019-05-24] MEDS: LEVOTHYROXINE SODIUM 0.05 MG TABLET NG SCH (05:48)
[2019-05-24] MEDS: VANCOMYCIN HCL 750 MG in DEXTROSE 5%-WATER 250 ML IV SCH ×2 (05:48→18:14)
[2019-05-24] MEDS: PHOSPHORUS #1 250 MG TABLET NG SCH ×4 (06:39→23:22)
[2019-05-24 08:50] LABS: PATH REVIEW PATHOLOGIST REVIEWED
[2019-05-24] MEDS: CYANOCOBALAMIN (VITAMIN B-12) 1,000 MCG TABLET NG SCH (09:06)
[2019-05-24] MEDS: APIXABAN 5 MG TABLET NG SCH ×2 (09:06→18:13)
[2019-05-24] MEDS: CITALOPRAM HYDROBROMIDE 20 MG TABLET NG SCH (09:07)
[2019-05-24] MEDS: BUSPIRONE HCL 10 MG TABLET NG SCH ×2 (09:07→21:03)
[2019-05-24] MEDS: PANTOPRAZOLE SODIUM 40 MG PACKET.DR NG SCH ×2 (09:07→21:03)
[2019-05-24] MEDS: MIDODRINE HCL 5 MG TABLET NG SCH ×3 (09:07→18:13)
[2019-05-24] MEDS: ASPIRIN 81 MG TABLET, CHEWABLE NG SCH (09:07)
[2019-05-24] MEDS ORDERED: PHARMACY COMMUNICATION ORDER MC NR (10:15)
--- NOTE | 2019-05-24 10:54 | RADIOLOGY REPORT (SQ) ---
EXAM DESCRIPTION: KUB/ABDOMEN (SINGLE VIEW) IMAGES COMPLETED DATE/TIME: 05/24/2019 10:38 am REASON FOR STUDY: Check Placement of NG Tube COMPARISON: None. NUMBER OF VIEWS: One view. TECHNIQUE: Supine radiographic image of the abdomen acquired. LIMITATIONS: None. FINDINGS: BOWEL GAS PATTERN: Normal bowel gas pattern. No dilated loops. CALCIFICATIONS: No suspicious calcifications. SOFT TISSUES: No gross mass or suggestion of organomegaly. HARDWARE: Nasoenteric tube tip overlies gastric body. BONES: No acute findings. Thoracolumbar spondylosis. OTHER: Enlarged cardiac silhouette. Coarse bile interstitial and alveolar opacities with small effus ions. IMPRESSION: Nasoenteric tube tip overlies gastric body. TECHNICAL DOCUMENTATION: JOB ID: [id number] 2010 [employer]- All Rights Reserved Reading location - IP/workstation name: [email or web address]
--- NOTE | 2019-05-24 11:44 | PDOC CRITICAL CARE PROG REPORT ---
General Date:: 05/24/19 Hospital Day:: 32 Resuscitation Status: Full Code Medical Power of Molecular Genetic Pathologist: Sons Events in the past 12 to 24 Hours:: Extubated. Review of systems relevant to events:: Respiratory, neurological, psychiatric Reason for ICU Addmission:: Reintubated for several days. Extubated today. - Medications: Medications reviewed and adjusted accordingly: Yes Vasopressors:: None Sedation:: None Physical Exam Vital Signs: Temp Pulse Resp BP Pulse Ox 99.1 F 82 26 H 109/78 98 05/24/19 10:18 05/24/19 10:35 05/24/19 11:04 05/24/19 10:35 05/24/19 11:04 Intake & Output 05/23/19 05/24/19 05/25/19 06:59 06:59 06:59 Intake Total 1559 1381 354 Output Total 1350 1820 200 Balance 209 -439 154 Weight 95.2 kg 96.4 kg Weight/Height Weight 96.4 kg Height 5 ft 5 in General appearance: PRESENT: no acute distress, cooperative, hard of hearing, ob jhonny Head exam: PRESENT: atraumatic, normocephalic Eye exam: PRESENT: conjunctiva pink, EOMI, PERRLA. ABSENT: scleral icterus Ear exam: PRESENT: normal external ear exam Mouth exam: PRESENT: moist, tongue midline Respiratory exam: PRESENT: crackles, decreased breath sounds, unlabored Cardiovascular exam: PRESENT: RRR. ABSENT: diastolic murmur, rubs, systolic murmur GI/Abdominal exam: PRESENT: normal bowel sounds, soft. ABSENT: distended, guarding, mass, organolmegaly, rebound, tenderness Rectal exam: PRESENT: deferred Extremities exam: PRESENT: full ROM. ABSENT: calf tenderness, clubbing, pedal edema Neurological exam: PRESENT: alert, awake, oriented to person, oriented to place, CN II-XII grossly intact, other - Sleeping off sedation. Psychiatric exam: PRESENT: appropriate affect, normal mood. ABSENT: homicidal ideation, suicidal ideation Skin exam: PRESENT: dry, intact, warm. ABSENT: cyanosis, rash Tubes/Lines: PRESENT: Nasogastic Tube Laboratory/Radiographs Laboratory Results: 05/24/19 04:03 05/24/19 04:03 05/24/19 05/24/19 04:03 04:03 WBC 16.0 H RBC 3.11 L Hgb 8.0 L Hct 26.2 L MCV 84 MCH 25.7 L MCHC 30.5 L RDW 19.8 H Plt Count 329 Seg Neutrophils % Not Reportable Sodium 139.3 Potassium 3.9 Chloride 107 Carbon Dioxide 30 Anion Gap 2 L BUN 27 H Creatinine 0.68 Est GFR ( Amer) > 60 Glucose 157 H Calcium 7.5 L Phosphorus 2.8 04/22/19 04/27/19 23:10 04:20 Troponin I < 0.012 NT-Pro-B Natriuret Pep 1520 H 705 H Impressions: Chest CT 05/10/19 00:00 IMPRESSION: Cardiomegaly with pleural effusions and bilateral pneumonia superimposed on emphysema. Interventional Vascular Procedure 05/17/19 00:00 IMPRESSION: SUCCESSFUL PLACEMENT OF A 5 FR DUAL LUMEN 28 CM PICC IN THE RIGHT BASILIC VEIN. PICC Line Insertion 05/17/19 00:00 IMPRESSION: SUCCESSFUL PLACEMENT OF A 5 FR DUAL LUMEN 28 CM PICC IN THE RIGHT BASILIC VEIN. Chest X-Ray 05/22/19 00:00 IMPRESSION: Borderline heart size without pancho pulmonary edema. Extensive multicentric disease, pneumonia versus chronic changes. There is increased opacification in the right base. KUB X-Ray 05/24/19 10:03 IMPRESSION: Nasoenteric tube tip overlies gastric body. All labs, radiographs, diagnostic studies and EKGs were personally reviewed: Yes In addition, reports of radiographic and diagnostic studies were read: Yes Assessment and Plan - Diagnosis (1) COPD (chronic obstructive pulmonary disease) Qualifiers: COPD type: COPD with acute lower respiratory infection Qualified Code(s): J44.0 - Chronic obstructive pulmonary disease with (acute) lower respiratory infection Is this a current diagnosis for this admission?: Yes Plan: No wheezing. Not currently active. She has respiratory muscle weakness from prolonged intubation. (2) Acute on chronic diastolic (congestive) heart failure Is this a current diagnosis for this admission?: Yes Plan: Resolved (3) Longstanding persistent atrial fibrillation Is this a current diagnosis for this admission?: Yes Plan: Controlled and on eliquis. (4) Acute and chronic respiratory failure with hypoxia Is this a current diagnosis for this admission?: Yes Plan: Extubated this AM. (5) HTN (hypertension) Qualifiers: Hypertension type: essential hypertension Qualified Code(s): I10 - Essential (primary) hypertension Is this a current diagnosis for this admission?: Yes Plan: Controlled. (6) Myelodysplasia (myelodysplastic syndrome) Is this a current diagnosis for this admission?: Yes Plan: Anemic but not needing transfusion. (7) Leukocytosis Qualifiers: Leukocytosis type: unspecified Qualified Code(s): D72.829 - Elevated white blood cell count, unspecified Is this a current diagnosis for this admission?: Yes Plan: Largely unchanged, no signs of infection. MDS effect. (8) Fever Qualifiers: Fever type: unspecified Qualified Code(s): R50.9 - Fever, unspecified Is this a current diagnosis for this admission?: Yes Plan: Resolved (9) Influenza A Is this a current diagnosis for this admission?: Yes Plan: Resolved. Plan Summary: Extubated to bipap for weakness may try off mask today. NG placed for feeding. Critical Time Critical Time (minutes): 35 Level of Care: ICU Anticipated discharge: SNF Within: Other -: 1. The care of a critical patient is a dynamic process. This note is a sales representative uniforms synopsis but static in nature. The timeframe for treatments given in order is not necessarily the actual time these treatments may have been done. 2. This patient requires critical care secondary to ongoing requirements for therapy not offered or safe outside the critical care environment. Transfer to a lower level of care will result in altered life or limb morbidity and mortality. 3. Multidisciplinary rounds completed. 4. ABCDE bundle addressed.
[2019-05-24] MEDS: ATORVASTATIN CALCIUM 20 MG TABLET NG SCH (21:03)
[2019-05-25] MEDS: IPRATROPIUM/ALBUTEROL 0.5-2.5 MG/3 ML AMPUL NEB SCH ×4 (01:56→19:56)
[2019-05-25] MEDS: MORPHINE SULFATE 10 MG/ML INJ IV PRN ×3 (04:37→21:15)
[2019-05-25] MEDS ORDERED: PHOSPHORUS #1 250 MG TABLET ONE (05:29)
[2019-05-25] MEDS: INSULIN REG, HUMAN 100 UNIT/ML 3 ML VIAL (PYX) SUBCUT SCH ×4 (05:51→23:38)
[2019-05-25] MEDS: HYDROCORTISONE SOD SUCCINATE INJ/PF 100 MG/2 ML SDV IV SCH ×2 (05:52→17:15)
[2019-05-25] MEDS: LEVOTHYROXINE SODIUM 0.05 MG TABLET NG SCH (05:52)
[2019-05-25] MEDS: PHOSPHORUS #1 250 MG TABLET NG SCH ×2 (05:53→11:49)
[2019-05-25 05:56] LABS: HEMATOCRIT 27.1 % (36.0-47.0); HEMOGLOBIN 8.3 g/dL (12.0-15.5); MEAN CORPUSCULAR HGB CONC 30.8 g/dL (32.0-36.0); MEAN CORPUSCULAR VOLUME 84 fl (80-97); PLATELET COUNT 358 10^3/uL (150-450); RED BLOOD COUNT 3.21 10^6/uL (3.72-5.28); RED CELL DISTRIBUTION WIDTH 19.8 % (11.5-14.0); WHITE BLOOD COUNT 19.4 10^3/uL (4.0-10.5)
[2019-05-25 06:10] LABS: VANCOMYCIN,TROUGH 22.9 ug/mL (5.0-20.0)
[2019-05-25 06:23] LABS: ABSOLUTE MONOCYTES # (MANUAL) 0.4 10^3/uL (0.1-1.4); BASOPHILS % (MANUAL) 0 % (0-2); EOSINOPHILS % (MANUAL) 0 % (0-6); LYMPHOCYTES % (MANUAL) 5 % (13-45); MONOCYTES % (MANUAL) 2 % (3-13); MYELOCYTES % (MANUAL) 2 % (0); SEGMENTED NEUTROPHILS % (MAN) 91 % (42-78); TOTAL CELLS COUNTED 100
[2019-05-25 06:25] LABS: ANISOCYTOSIS 2+; HYPOCHROMASIA SLIGHT; POLYCHROMASIA SLIGHT
[2019-05-25 06:26] LABS: OVALOCYTES 1+; PLATELET COMMENT ADEQUATE
--- NOTE | 2019-05-25 08:32 | PDOC CRITICAL CARE PROG REPORT ---
General Date:: 05/25/19 Hospital Day:: 32 Resuscitation Status: Full Code Medical Power of Obstetrics Gyn: Sons Events in the past 12 to 24 Hours:: Extubated. WBC increasing. Review of systems relevant to events:: Respiratory Reason for ICU Addmission:: Reintubated for several days. Extubated today. - Medications: Medications reviewed and adjusted accordingly: Yes Vasopressors:: None Sedation:: None Physical Exam Vital Signs: Temp Pulse Resp BP Pulse Ox 97.9 F 90 21 H 127/69 H 96 05/25/19 06:00 05/25/19 02:00 05/25/19 06:00 05/25/19 05:48 05/25/19 06:00 Intake & Output 05/24/19 05/25/19 05/26/19 06:59 06:59 06:59 Intake Total 1381 864 Output Total 1820 1230 Balance -439 -366 Weight 96.4 kg 95 kg Weight/Height Weight 95 kg Height 5 ft 5 in General appearance: PRESENT: no acute distress, hard of hearing, obese Head exam: PRESENT: atraumatic, normocephalic Eye exam: PRESENT: conjunctiva pink, EOMI, PERRLA. ABSENT: scleral icterus Ear exam: PRESENT: normal external ear exam Mouth exam: PRESENT: moist, tongue midline Respiratory exam: PRESENT: decreased breath sounds, rhonchi, unlabored Cardiovascular exam: PRESENT: RRR, other - paced GI/Abdominal exam: PRESENT: normal bowel sounds, soft. ABSENT: distended, guarding, mass, organolmegaly, rebound, tenderness Rectal exam: PRESENT: deferred Gentrourinary exam: PRESENT: indwelling catheter Neurological exam: PRESENT: altered, CN II-XII grossly intact Psychiatric exam: PRESENT: depressed Laboratory/Radiographs Laboratory Results: 05/25/19 05:47 05/24/19 04:03 05/25/19 05:47 WBC 19.4 H RBC 3.21 L Hgb 8.3 L Hct 27.1 L MCV 84 MCH 26.0 L MCHC 30.8 L RDW 19.8 H Plt Count 358 Seg Neutrophils % Not Reportable 04/22/19 04/27/19 23:10 04:20 Troponin I < 0.012 NT-Pro-B Natriuret Pep 1520 H 705 H Impressions: Chest CT 05/10/19 00:00 IMPRESSION: Cardiomegaly with pleural effusions and bilateral pneumonia superimposed on emphysema. Interventional Vascular Procedure 05/17/19 00:00 IMPRESSION: SUCCESSFUL PLACEMENT OF A 5 FR DUAL LUMEN 28 CM PICC IN THE RIGHT BASILIC VEIN. PICC Line Insertion 05/17/19 00:00 IMPRESSION: SUCCESSFUL PLACEMENT OF A 5 FR DUAL LUMEN 28 CM PICC IN THE RIGHT BASILIC VEIN. Chest X-Ray 05/22/19 00:00 IMPRESSION: Borderline heart size without pancho pulmonary edema. Extensive multicentric disease, pneumonia versus chronic changes. There is increased opacification in the right base. KUB X-Ray 05/24/19 10:03 IMPRESSION: Nasoenteric tube tip overlies gastric body. All labs, radiographs, diagnostic studies and EKGs were personally reviewed: Yes In addition, reports of radiographic and diagnostic studies were read: Yes Assessment and Plan - Diagnosis (1) COPD (chronic obstructive pulmonary disease) Qualifiers: COPD type: COPD with acute lower respiratory infection Qualified Code(s): J44.0 - Chronic obstructive pulmonary disease with (acute) lower respiratory infection Is this a current diagnosis for this admission?: Yes Plan: Stable and inactive.We tried today to take her off the bipap and her oxygenation dropped to the high 70s . (2) Acute on chronic diastolic (congestive) heart failure Is this a current diagnosis for this admission?: Yes Plan: Inactive (3) Longstanding persistent atrial fibrillation Is this a current diagnosis for this admission?: Yes Plan: Her HR is now paced but still on eliquis. (4) Acute and chronic respiratory failure with hypoxia Is this a current diagnosis for this admission?: Yes (5) HTN (hypertension) Qualifiers: Hypertension type: essential hypertension Qualified Code(s): I10 - Essential (primary) hypertension Is this a current diagnosis for this admission?: Yes Plan: Controlled. (6) Myelodysplasia (myelodysplastic syndrome) Is this a current diagnosis for this admission?: Yes Plan: This may be playing a role in WBC, but H/H and PLT are not effected. (7) Leukocytosis Qualifiers: Leukocytosis type: unspecified Qualified Code(s): D72.829 - Elevated white blood cell count, unspecified Is this a current diagnosis for this admission?: Yes Plan: We must rule out infectious source. Blood and urine cultures pending as is a CXR. If peripheral IVs can be obtained will D/C PICC. Last day of Vancomycin. (8) Fever Qualifiers: Fever type: unspecified Qualified Code(s): R50.9 - Fever, unspecified Is this a current diagnosis for this admission?: Yes Plan: Resolved (9) Influenza A Is this a current diagnosis for this admission?: Yes Plan: Resolved Critical Time Critical Time (minutes): 35 Level of Care: ICU Anticipated discharge: SNF Within: Other -: 1. The care of a critical patient is a dynamic process. This note is a customer solutions representative synopsis but static in nature. The timeframe for treatments given in order is not necessarily the actual time these treatments may have been done. 2. This patient requires critical care secondary to ongoing requirements for therapy not offered or safe outside the critical care environment. Transfer to a lower level of care will result in altered life or limb morbidity and mortality. 3. Multidisciplinary rounds completed. 4. ABCDE bundle addressed.
[2019-05-25] MEDS: VANCOMYCIN HCL 750 MG in DEXTROSE 5%-WATER 250 ML IV SCH (08:49)
--- NOTE | 2019-05-25 09:40 | RADIOLOGY REPORT (SQ) ---
EXAM DESCRIPTION: CHEST SINGLE VIEW IMAGES COMPLETED DATE/TIME: 05/25/2019 8:41 am REASON FOR STUDY: Increasing WBC on antibiotics. COMPARISON: Chest films 05/22/2019, 05/21/2019, 05/20/2019, 05/18/2019 EXAM PARAMETERS: NUMBER OF VIEWS: One view. TECHNIQUE: Single frontal radiographic view of the chest acquired. RADIATION DOSE: NA LIMITATIONS: None. FINDINGS: LUNGS AND PLEURA: No change in diffuse bilateral alveolar and interstitial infiltrates rig ht greater than left. Stable mild pleural thickening left lateral costophrenic sulcus. No pneumothorax For MEDIASTINUM AND HILAR STRUCTURES: No masses. Contour normal. HEART AND VASCULAR STRUCTURES: Mild cardiomegaly BONES: No acute findings HARDWARE: Nasogastric tube tip and side port in the stomach. Endotracheal tube has been removed. Ri ght PICC line tip superior vena cava unchanged left-sided single lead pacemaker OTHER: No other significant finding. IMPRESSION: Endotracheal tube has been removed. No change in diffuse bilateral alveolar and interstitial infiltrates. TECHNICAL DOCUMENTATION: JOB ID: [id number] 2010 [employer]- All Rights Reserved Reading location - IP/workstation name: [id number]
[2019-05-25] MEDS: CYANOCOBALAMIN (VITAMIN B-12) 1,000 MCG TABLET NG SCH (10:13)
[2019-05-25] MEDS: PANTOPRAZOLE SODIUM 40 MG PACKET.DR NG SCH (10:13)
[2019-05-25] MEDS: ASPIRIN 81 MG TABLET, CHEWABLE NG SCH (10:14)
[2019-05-25] MEDS: BUSPIRONE HCL 10 MG TABLET NG SCH ×2 (10:14→21:07)
[2019-05-25] MEDS: MIDODRINE HCL 5 MG TABLET NG SCH ×3 (10:14→17:16)
[2019-05-25] MEDS: APIXABAN 5 MG TABLET NG SCH ×2 (10:14→17:15)
[2019-05-25] MEDS: CITALOPRAM HYDROBROMIDE 20 MG TABLET NG SCH (10:14)
[2019-05-25] MEDS ORDERED: VANCOMYCIN HCL 750 MG in DEXTROSE 5%-WATER 250 ML IV ONE (11:00)
[2019-05-25] MEDS: ATORVASTATIN CALCIUM 20 MG TABLET NG SCH (21:07)
[2019-05-26] MEDS: IPRATROPIUM/ALBUTEROL 0.5-2.5 MG/3 ML AMPUL NEB SCH ×4 (02:11→20:31)
[2019-05-26] MEDS: LEVOTHYROXINE SODIUM 0.05 MG TABLET NG SCH (05:23)
[2019-05-26] MEDS: HYDROCORTISONE SOD SUCCINATE INJ/PF 100 MG/2 ML SDV IV SCH (05:23)
[2019-05-26] MEDS: INSULIN REG, HUMAN 100 UNIT/ML 3 ML VIAL (PYX) SUBCUT SCH (05:23)
[2019-05-26 06:03] LABS: HEMATOCRIT 26.3 % (36.0-47.0); MEAN CORPUSCULAR HGB CONC 30.6 g/dL (32.0-36.0); MEAN CORPUSCULAR VOLUME 85 fl (80-97); PLATELET COUNT 346 10^3/uL (150-450); RED BLOOD COUNT 3.09 10^6/uL (3.72-5.28); RED CELL DISTRIBUTION WIDTH 19.7 % (11.5-14.0); WHITE BLOOD COUNT 21.6 10^3/uL (4.0-10.5)
[2019-05-26 06:05] LABS: ABSOLUTE LYMPHOCYTES# (MANUAL) 1.1 10^3/uL (0.5-4.7); ABSOLUTE MONOCYTES # (MANUAL) 1.5 10^3/uL (0.1-1.4); BASOPHILS % (MANUAL) 0 % (0-2); EOSINOPHILS % (MANUAL) 1 % (0-6); LYMPHOCYTES % (MANUAL) 5 % (13-45); MONOCYTES % (MANUAL) 7 % (3-13); SEGMENTED NEUTROPHILS % (MAN) 87 % (42-78); TOTAL CELLS COUNTED 100
[2019-05-26 06:06] LABS: ANISOCYTOSIS 2+; HYPOCHROMASIA SLIGHT; OVALOCYTES SLIGHT; PLATELET COMMENT ADEQUATE; POIKILOCYTOSIS SLIGHT; POLYCHROMASIA SLIGHT; SCHISTOCYTES SLIGHT; TOXIC GRANULATION SLIGHT
[2019-05-26] MEDS: MIDODRINE HCL 5 MG TABLET NG SCH (09:15)
[2019-05-26] MEDS: CYANOCOBALAMIN (VITAMIN B-12) 1,000 MCG TABLET NG SCH (09:16)
[2019-05-26] MEDS: ASPIRIN 81 MG TABLET, CHEWABLE NG SCH (09:16)
[2019-05-26] MEDS: APIXABAN 5 MG TABLET NG SCH (09:16)
[2019-05-26] MEDS: PANTOPRAZOLE SODIUM 40 MG PACKET.DR NG SCH (09:16)
[2019-05-26] MEDS: CITALOPRAM HYDROBROMIDE 20 MG TABLET NG SCH (09:17)
[2019-05-26] MEDS: BUSPIRONE HCL 10 MG TABLET NG SCH (09:17)
[2019-05-26] MEDS ORDERED: MORPHINE SULFATE 10 MG/ML INJ IV PRN (10:19)
[2019-05-26] MEDS ORDERED: MORPHINE SULFATE 10 MG/ML INJ ONE (10:19)
[2019-05-26] MEDS: MORPHINE SULFATE 10 MG/ML INJ IV PRN ×4 (11:27→23:10)
[2019-05-26] MEDS: LORAZEPAM INJ 2 MG/1 ML VIAL IV PRN ×3 (11:29→22:29)
[2019-05-26] MEDS ORDERED: ACETAMINOPHEN SOLN 325 MG/10.15 ML UDCUP NG PRN (15:07)
[2019-05-27] MEDS: MORPHINE SULFATE 10 MG/ML INJ IV PRN ×3 (00:13→02:21)
[2019-05-27] MEDS: LORAZEPAM INJ 2 MG/1 ML VIAL IV PRN (01:10)
[2019-05-27 02:36] VITALS: BP 58/28
--- NOTE | 2019-05-27 03:20 | Death Summary ---
Summary Date : 05/27/19 Time of :: 02:42 Autopsy: No Resuscitation Status: Comfort Measures Only Consulting Provider: Craig Coyle - Final Diagnosis (1) Comfort measures only status Is this a current diagnosis for this admission?: Yes (2) Acute respiratory failure with hypoxia and hypercapnia Is this a current diagnosis for this admission?: Yes (3) ARDS (adult respiratory distress syndrome) Is this a current diagnosis for this admission?: Yes (4) Influenza A Is this a current diagnosis for this admission?: Yes (5) COPD exacerbation Is this a current diagnosis for this admission?: Yes (6) Chronic hypercapnic respiratory failure Is this a current diagnosis for this admission?: No (7) Acute on chronic diastolic (congestive) heart failure Is this a current diagnosis for this admission?: Yes (8) Myelodysplasia (myelodysplastic syndrome) Is this a current diagnosis for this admission?: Yes Hospital Course:: HPI: Mrs. Monroe is a 69 year-old female with a past medical history significant for atrial fibrillation, acute on chronic diastolic CHF s/p permanent pacemaker, HTN, hypothyroidism, myelodysplasia with chronic leukocytosis, iron deficiency anemia, morbid obesity, severe COPD on home O2/steroids for chronic bronchitis, NOAM, and chronic respiratory failure who presented to [facility] on 04/22/2019 with pneumonia due to Influenza A via PCR on respiratory viral panel. Her course of illness was predominantly pulmonary secondary to infection as noted below. Hospital Course: She was admitted to the medical [facility] and progressively became more labored with hypoxia on 05/01/2019, necessitating transfer to the ICU for acute on chronic hypoxic respiratory for which she was ultimately intubated on 05/05/2019. She received a full course of Tamiflu as well as empiric antibiotics for which her pneumonia and ARDS improved, resulting in extubation on 05/12/2019. However, she was unable to wean from non-invasive ventilation with high BiPAP requirements for which she eventually tired and was re-intubated on 05/18/2019. She was ext ubated a second time on 05/24/2019 for which she was again unable to wean from BiPAP over the course of several days due to her underlying lung disease/fibrosis. The patient and family were both in support of comfort care for which the orders were executed and she was removed from BiPAP on 05/26/2019. Expectantly she this morning in the presence of her family members. Dr Coyle notified. Time of : 02:42 AM
== END 2019-05-27 02:42 | DRG 207 ==
LOC: ER 22:56 → EH 04-23 01:31 → 3W 04-23 03:09 → ICU 05-01 11:30
PROVIDERS: ADMIT Internal Medicine; ATTEND Anesthesiology
PROC: 02HV33Z Insertion of Infusion Device into Superior Vena Cava, Percutaneous Approach (ICD-10-PCS; 2019-05-01)
PROC: B548ZZA Ultrasonography of Superior Vena Cava, Guidance (ICD-10-PCS; 2019-05-01)
PROC: 30233N1 Transfusion of Nonautologous Red Blood Cells into Peripheral Vein, Percutaneous Approach (ICD-10-PCS; 2019-05-04)
PROC: 5A1955Z Respiratory Ventilation, Greater than 96 Consecutive Hours (ICD-10-PCS; principal; 2019-05-05)
PROC: 03HY32Z Insertion of Monitoring Device into Upper Artery, Percutaneous Approach (ICD-10-PCS; 2019-05-05)
PROC: 0BH17EZ Insertion of Endotracheal Airway into Trachea, Via Natural or Artificial Opening (ICD-10-PCS; 2019-05-05)
PROC: 02HV33Z Insertion of Infusion Device into Superior Vena Cava, Percutaneous Approach (ICD-10-PCS; 2019-05-17)
PROC: B518ZZA Fluoroscopy of Superior Vena Cava, Guidance (ICD-10-PCS; 2019-05-17)
PROC: B548ZZA Ultrasonography of Superior Vena Cava, Guidance (ICD-10-PCS; 2019-05-17)
PROC: 5A1955Z Respiratory Ventilation, Greater than 96 Consecutive Hours (ICD-10-PCS; 2019-05-18)
PROC: 0BH17EZ Insertion of Endotracheal Airway into Trachea, Via Natural or Artificial Opening (ICD-10-PCS; 2019-05-18)
DX: J96.02 Acute respiratory failure with hypercapnia (principal); J18.9 Pneumonia, unspecified organism; I50.33 Acute on chronic diastolic (congestive) heart failure; J44.0 Chronic obstructive pulmonary disease with (acute) lower respiratory infection; E87.2 Acidosis; I48.11 Longstanding persistent atrial fibrillation; J09.X2 Influenza due to identified novel influenza A virus with other respiratory manifestations; J96.01 Acute respiratory failure with hypoxia; K21.9 Gastro-esophageal reflux disease without esophagitis; D50.9 Iron deficiency anemia, unspecified; I11.0 Hypertensive heart disease with heart failure; D46.9 Myelodysplastic syndrome, unspecified; F41.8 Other specified anxiety disorders; G47.33 Obstructive sleep apnea (adult) (pediatric); Z99.81 Dependence on supplemental oxygen; Z86.711 Personal history of pulmonary embolism; Z95.0 Presence of cardiac pacemaker; Z79.01 Long term (current) use of anticoagulants; Z79.82 Long term (current) use of aspirin; Z79.51 Long term (current) use of inhaled steroids; Z79.52 Long term (current) use of systemic steroids; Z79.899 Other long term (current) drug therapy; Z87.891 Personal history of nicotine dependence
CPT/HCPCS: 31500; 36415; 36430; 36573; 36600; 36620; 71045; 71046; 71260; 74018; 76937; 80048; 80053; 80202; 81001; 82040; 82140; 82330; 82565; 82607; 82728; 82746; 82803; 82962; 83540; 83550; 83605; 83735; 83880; 84100; 84439; 84443; 84478; 84484; 85025; 85027; 85045; 85610; 85730; 86140; 86141; 86850; 86900; 86901; 86920; 87040; 87070; 87086; 87205; 87486; 87581; 87633; 87798; 87804; 93005; 93010; 93306; 94002; 94003; 94640; 94660; 94668; 96374; 99231; 99232; 99233; 99285; 99291; 99292; J0610; C1758; C1887; J0131; J0692; J1335; J1642; J1644; J1720; J1756; J1815; J1940; J1956; J2060; J2270; J2405; J2543; J2704; J2920; J2930; J3010; J3370; J3490; J7040; J7060; J7512; J7620; P9016; P9047